=== PATIENT | male | born 1950 | race Caucasian/White ===

== ENCOUNTER 2018-02-25 22:44 | Inpatient (IN) ==
[2018-02-26 00:30] LABS: Bacteria,Urine None Seen per hpf (None-Few); Bilirubin,Urine Negative (Negative); Blood,Urine Negative (Negative); Clarity,Urine Clear (Clear); Color,Urine Yellow (Yellow); Glucose,Urine (UA) Normal (Normal); Hyaline Casts,Urine None Seen per lpf (None-Few); Ketones,Urine Negative (Negative); Leukocyte Esterase,Urine Trace (Negative); Nitrite,Urine Negative (Negative); PH,Urine 5.5 pH Units (5.0-8.0); Protein,Urine Trace mg/dL (Neg-Trace); Specific Gravity,Urine 1.015 (1.010-1.025); Squamous Epithelial Cell,Urine Many per lpf (None-Few); Urobilinogen,Urine Normal (Normal)
[2018-02-26 00:45] LABS: Hematocrit 37.1 % (37.5-50.1); Hemoglobin 11.9 g/dL (12.9-16.9); Mean Corpuscular HGB Conc 32.1 g/dL (31.6-35.5); Mean Corpuscular Hemoglobin 30.4 pg (28.0-33.3); Mean Corpuscular Volume 94.9 fL (83.0-100.0); Mean Platelet Volume 11.5 fL (9.4-12.4); Nucleated Red Blood Cells 0.1 /100 WBC (0); Platelet Count 248 K/mcL (140-400); Red Blood Count 3.91 M/mcL (4.19-5.50); Red Cell Distribution Width 19.7 % (11.5-14.5)
[2018-02-26 01:13] LABS: Monocytes # 2.3 K/mcL (0.0-1.3); Platelet Estimate Normal (Normal)
[2018-02-26] MEDS ORDERED: Levofloxacin 750 MG/150 ML 750 MG/150 ML BAG IVPB ONE (01:48)
[2018-02-26] MEDS ORDERED: Piperacillin/Tazobactam 3.375 GM in Water for inj. (sterile) 20 ML 20 ML IVP ONE (01:48)
--- NOTE | 2018-02-26 01:56 | Emergency Department Note ---
Disposition Clinical Impression: Chronic kidney disease, stage IV (severe), Urinary retention, Hyperkalemia Acute on chronic kidney failure Qualifiers: Acute renal failure type: unspecified Chronic kidney disease stage: unspecified stage Qualified Code(s): N17.9 - Acute kidney failure, unspecified; N18.9 - Chronic kidney disease, unspecified Disposition: Admitted As Inpatient Condition: Fair Time of Disposition: 04:53 General Adult HPI - General Chief complaint: ED Urogenital-Male Stated complaint: abnormal renal function labs Time Seen by Provider: 02/25/18 22:48 Source: patient, EMS Mode of arrival: EMS Limitations: no limitations Nursing Notes Reviewed: Yes Vital Signs Reviewed: Yes - History of Present Illness HPI Narrative: 67-year-old male presents to the emergency department from the [facility] for elevated creatinine. Patient was has workup done there. Patient states he was seen a few days ago for having difficulty with urination and he decided he did not want to be admitted to the ID so he decided to go home. Today he return to the ID saying he was unable to urinate and felt like his kidneys were not working. They said they sent him here has had elevated creatinine patient may need dialysis. Patient does have history of CKD as well as CHF. Patient currently has no other complaints including no headaches, blurry vision, neck pain, back pain, chest pain, shortness of breath, abdominal pain, changes in balance, pain or tingling down the arms or legs or generalized weakness, fevers, chills, nausea, vomiting. Pain Scale: 6 - Related Data Home Medications Medication Instructions Recorded Confirmed Allopurinol [Zyloprim 100 MG] 100 mg PO DAILY 09/28/15 10/18/16 Baclofen [Lioresal] 10 mg PO TID 09/28/15 10/18/16 Budesonide/Formoterol 160/4.5 2 puff IH BIDR 09/28/15 10/18/16 [Symbicort 160/4.5] Calcitriol 0.5 mcg PO DAILY 09/28/15 10/18/16 Cetirizine HCl [Zyrtec] 10 mg PO DAILY 09/28/15 10/18/16 Meclizine HCl [Verticalm] 12.5 mg PO TID 09/28/15 10/18/16 Metoprolol [Lopressor] 25 mg PO BID 09/28/15 10/18/16 OxyCODONE/APAP 5/325 [Percocet 1 tab PO Q6HR PRN 09/28/15 10/18/16 5/325 MG] Pantoprazole Sodium [Protonix] 40 mg PO BID 09/28/15 10/18/16 Simvastatin [Zocor] 40 mg PO DAILY 09/28/15 10/18/16 Tiotropium [Spiriva] 18 mcg IH DAILY 09/28/15 10/18/16 Albuterol Sulfate [Proair Hfa] 2 puff IH Q4H PRN 12/14/15 10/18/16 Aspirin Enteric Coated [Aspirin EC] 325 mg PO DAILY 12/14/15 10/18/16 Capsaicin [Zostrix Hp] 1 appl TP AD PRN 12/14/15 10/17/16 Docusate [Colace] 100 mg PO DAILY PRN 12/14/15 10/18/16 Ondansetron [Zofran] 8 mg PO DAILY PRN 12/14/15 10/18/16 Allergies Allergy/AdvReac Type Severity Reaction Status Date / Time NSAIDS (Non-Steroidal Allergy See Verified 09/28/15 20:55 Anti-Inflamma Comments All systems ED: reviewed and negative except as stated. Review of Systems: As Per HPI Past Medical History - Past Medical History Attestation: Yes The following information was validated with the patient. Source: patient Medical history: Reports: arthritis, CHF, COPD, GERD, hyperlipidemia, hypertension, peripheral artery disease, renal disease Surgical history: Reports: other Psychiatric history: Reports: no psych history - Social History Smoking Status: Former smoker Smokeless Tobacco Status: No Alcohol use: Reports: occasionally Drug use: Reports: none Physical Exam - General Limitations: no limitations General appearance: alert, in no apparent distress - Head Head exam: atraumatic, normocephalic, normal inspection - Eye Eye exam: Present: normal appearance, PERRL, EOMI - ENT ENT exam: normal exam, normal oropharynx, mucous membranes moist - Neck Neck exam: Present: normal inspection, full ROM, trachea midline - Chest Chest inspection: Present: normal inspection, symmetric chest wall rise - Respiratory Respiratory exam: Present: normal lung sounds bilaterally - Cardiovascular Cardiovascular exam: Present: regular rate, normal rhythm, normal heart sounds - Abdominal Exam Abdominal exam: Present: soft, Non-Tender, distention, normal bowel sounds. Absent: tenderness, guarding, rebound, rigidity - Extremities Exam Extremities exam: Present: normal inspection, full ROM. Absent: tenderness, pedal edema - Expanded Lower Extremity Exam Neurovascular/Tendon exam: Absent: motor deficit, sensory deficit, tendon deficit - Back Exam Back exam: Present: normal inspection, full ROM. Absent: tenderness, CVA tenderness (R), CVA tenderness (L) - Neurological Exam Neurological exam: Present: alert, oriented X3 - Skin Skin exam: Present: warm, dry, intact, normal color Course Course Narrative: We will repeat the patient's labs will upload the chest x-ray. We will get BMP , CBC. - Reevaluation(s) Reevaluation #1: Patient did show an elevated leukocytosis that did have mainly neutrophils. Chest x-ray did show pulmonary edema this could be a pneumonia but we will get blood cultures and start broad-spectrum antibiotics including Levsin, Zosyn, vancomycin. Due to patient's history of CHF patient will not give fluids to help with his creatinine patient most likely will need dialysis. Patient will be admitted. Vital Signs Temperature 97.8 F 02/25/18 23:00 Pulse Rate 71 02/25/18 23:00 Respiratory Rate 16 02/25/18 23:00 Blood Pressure 129/47 02/25/18 23:00 O2 Sat by Pulse Oximetry 94 02/25/18 23:00 Temperature 97.8 F 02/25/18 23:00 Pulse Rate 74 02/26/18 04:00 Respiratory Rate 20 02/26/18 04:00 Blood Pressure 126/58 02/26/18 04:00 O2 Sat by Pulse Oximetry 100 02/26/18 04:00 Oxygen Delivery Oxygen Delivery Nasal Cannula Medical Decision Making - [facility] Narrative Medical decision making narrative: 67-year-old male presented to the emergency department from the ID for admission due to patient having worsening creatinine he presented here with worsening AK I out of this EKG. Patient also had a leukocytosis with neutrophils so patient was likely is an infection somewhere. His chest x-ray did show possible pneumonia as well as pulmonary edema. This is most likely secondary to CHF. Due to this I was unable to give patient IV fluids for his AK I patient most likely needs dialysis. Patient did have elevation in his potassium at 5.9 so I did give him 5 units of insulin with D50 to help with the potassium. Patient no EKG changes or peaked T waves. Patient was also started on broad-spectrum antibiotics including vancomycin, Zosyn. Patient otherwise has no complaints at this time. Patient is stable at this time he normally does sleep with BiPAP so we did order BiPAP for him at night. Patient is more comfortable while on this. I spoke with the hospitalist Dr. Garner who agreed to admit the patient to their service. Patient is admitted in stable condition. Chest CT 02/26/18 02:09 IMPRESSION: 1. Slowly increasing ground-glass opacity consolidation in the apical left upper lobe, now measuring 5 x 1.5 cm. Pulmonology consultation recommended to evaluate for low-grade lung carcinoma. Follow-up chest CT can be considered in 3 months to confirm persistence. 2. Otherwise no acute abnormality in the chest on the noncontrast CT. Sequela of remote granulomatous disease. D/ / Jose L Tai MD / Jose L Tai MD Interpreting Provider: Jose L Tai MD - Medical Records Medical records reviewed: Yes I reviewed the patient's medical records. - Lab Data Lab results reviewed: Yes I reviewed the patient's lab results. Result diagrams: 02/26/18 00:28 02/26/18 01:40 Lab Results 02/26/18 02/26/18 02/26/18 Range/Units 00:24 00:28 00:28 WBC 28.2 H (4.3-11.1) K/mcL RBC 3.91 L (4.19-5.50) M/mcL Hgb 11.9 L (12.9-16.9) g/dL Hct 37.1 L (37.5-50.1) % MCV 94.9 (83.0-100.0) fL MCH 30.4 (28.0-33.3) pg MCHC 32.1 (31.6-35.5) g/dL RDW 19.7 H (11.5-14.5) % Plt Count 248 (140-400) K/mcL MPV 11.5 (9.4-12.4) fL Seg Neutrophils % 74.0 % Band Neutrophils % 4.0 (0-4) % Lymphocytes % 14.0 % Monocytes % 8.0 % Neutrophils # 22.0 H (1.6-8.9) K/mcL Lymphocytes # 4.0 (0.6-4.6) K/mcL Monocytes # 2.3 H (0.0-1.3) K/mcL Nucleated RBCs/100 WBC 0.1 H (0) /100 WBC Platelet Estimate Normal (Normal) Sodium (136-145) mEq/L Potassium (3.5-5.1) mEq/L Chloride (98-107) mEq/L Carbon Dioxide (23-29) mEq/L BUN (8-23) mg/dL Creatinine (0.70-1.30) mg/dL Est GFR ( Amer) (> 60) Est GFR (Non-Af Amer) (> 60) BUN/Creatinine Ratio Glucose (70-105) mg/dL Calculated Osmolality Calcium (8.6-10.3) mg/dL Magnesium (1.6-2.6) mg/dL Total Bilirubin (0.3-1.0) mg/dL AST (13-39) Units/L ALT (7-52) Units/L Alkaline Phosphatase (34-104) Units/L Serum Total Protein (6.4-8.9) g/dL Albumin (3.5-5.7) g/dL Globulin (2.4-3.5) g/dL Albumin/Globulin Ratio (1.1-2.2) Urine Color Yellow (Yellow) Urine Clarity Clear (Clear) Urine pH 5.5 (5.0-8.0) pH Units Ur Specific [place] 1.015 (1.010-1.025) Urine Protein Trace (Neg-Trace) mg/dL Urine Glucose (UA) Normal (Normal) mg/dL Urine Ketones Negative (Negative) mg/dL Urine Blood Negative (Negative) Urine Nitrite Negative (Negative) Urine Bilirubin Negative (Negative) Urine Urobilinogen Normal (Normal) mg/dL Ur Leukocyte Esterase Trace H (Negative) Urine Microscopic RBC 5-15 H (0-3) per hpf Urine Microscopic WBC 5-15 H (0-3) per hpf Ur Squamous Epith Cells Many H (None-Few) per lpf Urine Bacteria None Seen (None-Few) per hpf Hyaline Casts None Seen (None-Few) per lpf Ur Culture Indicated? NO. A (NO) Specimen Rejected Hemolyzed 10/02/18 Range/Units 01:40 WBC (4.3-11.1) K/mcL RBC (4.19-5.50) M/mcL Hgb (12.9-16.9) g/dL Hct (37.5-50.1) % MCV (83.0-100.0) fL MCH (28.0-33.3) pg MCHC (31.6-35.5) g/dL RDW (11.5-14.5) % Plt Count (140-400) K/mcL MPV (9.4-12.4) fL Seg Neutrophils % % Band Neutrophils % (0-4) % Lymphocytes % % Monocytes % % Neutrophils # (1.6-8.9) K/mcL Lymphocytes # (0.6-4.6) K/mcL Monocytes # (0.0-1.3) K/mcL Nucleated RBCs/100 WBC (0) /100 WBC Platelet Estimate (Normal) Sodium 144 (136-145) mEq/L Potassium 5.8 H (3.5-5.1) mEq/L Chloride 111 H (98-107) mEq/L Carbon Dioxide 12 L (23-29) mEq/L BUN > 130 H (8-23) mg/dL Creatinine 6.41 H (0.70-1.30) mg/dL Est GFR ( Amer) 11 L (> 60) Est GFR (Non-Af Amer) 9 L (> 60) BUN/Creatinine Ratio TNP Glucose 84 (70-105) mg/dL Calculated Osmolality TNP Calcium 8.0 L (8.6-10.3) mg/dL Magnesium 2.7 H (1.6-2.6) mg/dL Total Bilirubin 0.5 (0.3-1.0) mg/dL AST 25 (13-39) Units/L ALT 28 (7-52) Units/L Alkaline Phosphatase 51 (34-104) Units/L Serum Total Protein 6.5 (6.4-8.9) g/dL Albumin 3.9 (3.5-5.7) g/dL Globulin 2.6 (2.4-3.5) g/dL Albumin/Globulin Ratio 1.5 (1.1-2.2) Urine Color (Yellow) Urine Clarity (Clear) Urine pH (5.0-8.0) pH Units Ur Specific [place] (1.010-1.025) Urine Protein (Neg-Trace) mg/dL Urine Glucose (UA) (Normal) mg/dL Urine Ketones (Negative) mg/dL Urine Blood (Negative) Urine Nitrite (Negative) Urine Bilirubin (Negative) Urine Urobilinogen (Normal) mg/dL Ur Leukocyte Esterase (Negative) Urine Microscopic RBC (0-3) per hpf Urine Microscopic WBC (0-3) per hpf Ur Squamous Epith Cells (None-Few) per lpf Urine Bacteria (None-Few) per hpf Hyaline Casts (None-Few) per lpf Ur Culture Indicated? (NO) Specimen Rejected - Radiology Data Radiology results reviewed: Yes I reviewed the patient's radiology results. - EKG Data EKG #1 EKG attestation: Yes I reviewed and interpreted this EKG. EKG results narrative: EKG done at 2254 review myself and the attending shows sinus rhythm at a rate of 71, ID interval 153, QRS 107, QTC 442 with a normal axis. There is no acute ST changes no acute T-wave changes no signs of any peaked T waves or any other signs of ischemia. No hypertrophy, heart strain, heart block. No WPW/Brugada/ HOCM. No old EKG to compare with Attestation Statement - Attestation Attestation: I examined this patient and my medical decision-making was reviewed with the Resident Physician. I agree with the documented findings, disposition and treatment plan as described except to the extent set forth below. Findings consistent with acute renal failure. [facility] Additionally there is findings of possible lung cancer. The patient will need pulmonary consultation. Additionally he does have mild hyperkalemia. There are no EKG changes and as such I would not administer calcium which would provide a stabilizing effect only beneficial when EKG changes are evident. The patient will be given reduced dose insulin due to his renal failure based on new research suggesting that full dose regular insulin dosing to treat hyperkalemia can result and subsequent hypoglycemia. The patient will get 5 units of regular insulin as well as dextrose solution and will be admitted for further management.
[2018-02-26 02:10] LABS: Alanine Aminotransferase 28 Units/L (7-52); Albumin 3.9 g/dL (3.5-5.7); Albumin/Globulin Ratio 1.5 (1.1-2.2); Alkaline Phosphatase 51 Units/L (34-104); Aspartate Amino Transferase 25 Units/L (13-39); Bilirubin,Total 0.5 mg/dL (0.3-1.0); Blood Urea Nitrogen > 130 mg/dL (8-23); Carbon Dioxide 12 mEq/L (23-29); Chloride 111 mEq/L (98-107); Globulin 2.6 g/dL (2.4-3.5); Glucose 84 mg/dL (70-105); Magnesium 2.7 mg/dL (1.6-2.6); Potassium 5.8 mEq/L (3.5-5.1); Sodium 144 mEq/L (136-145); Total Protein 6.5 g/dL (6.4-8.9); eGFR For Non-African Americans 9 (> 60)
[2018-02-26] MEDS ORDERED: Insulin Human Regular 5 UNIT in 0.9 % Sodium Chloride 10 ML IV ONE (04:38)
[2018-02-26] MEDS ORDERED: *HR* Dextrose 50 % in Water (Syg) 50 ML SYRINGE IVP ONE (04:38)
[2018-02-26 06:11] LABS: Blood Urea Nitrogen > 130 mg/dL (8-23); Calcium 7.5 mg/dL (8.6-10.3); Carbon Dioxide 14 mEq/L (23-29); Chloride 108 mEq/L (98-107); Glucose 177 mg/dL (70-105); Potassium 4.6 mEq/L (3.5-5.1); Sodium 140 mEq/L (136-145); eGFR For Non-African Americans 9 (> 60)
[2018-02-26] MEDS ORDERED: Naloxone 0.4 MG/ML INJ IVP PRN (07:46)
[2018-02-26] MEDS ORDERED: Sodium Bicarbonate 150 MEQ in D5% in Water 1,000 ML IVC SCH ×2 (08:00→19:30)
--- NOTE | 2018-02-26 08:29 | Internal Med History&Physical ---
Date of Encounter: 02/26/18 Time of Encounter: 08:29 Internal Medicine - H&P: HPI Chief complaint: Generalized weakness, decreased urine output Admitted From: Emergency Dept Plans for Post Hospital Care: Home History of present illness: Mr. Madrid is a 67 year old male patient with a history of chronic kidney disease stage IV, hypertension, peripheral arterial disease who presented to the ER at the [facility] initially on Sunday with complaints of generalized weakness. He was evaluated in the ER and was noted to have worsening renal function. He was sent home at that time but did return to the ER yesterday with complaints of worsening symptoms. He did have decreased urine output. Also was having worsening swelling and some shortness of breath with exertion. He has also been having dark colored sputum and cough. He denies any mitzi blood. No diarrhea. Did have some emesis. He has chronic back pain and takes Percocet for it. He says that he is being weaned off it and was taking Tylenol instead. Denies use of any NSAIDs. No recent antibiotics. No fever or chills or night sweats. Past Med Surg Social Fam HX - Past Medical History Attestation: Yes The following information was validated with the patient. Source: patient Medical history: arthritis, CHF, COPD, GERD, hyperlipidemia, hypertension, peripheral artery disease, renal disease Additional medical history: sleep apnea Psychiatric history: no psych history - Past Surgical History Surgical History: other Additional surgical history: dental - bronchoscopy x 2 - egd - right femoral stent - spine stimulator - Social History Smoking Status: Former smoker Smokeless Tobacco Status: No Alcohol use: occasionally Drug use: none - Family History Mother Adopted: No Family Member Ethnicity: Non- Living Status: Hx Family Cardiac Disorders: No Hx Family Respiratory Disorders: Yes (copd) Hx Family Cancer: Yes (ovarian cancer) Hx Family GI Disorders: No Hx Family Endocrine Disorder: No Hx Family Neuromuscular Disorders: No Hx Family Neurologic Disorders: No Hx Family HEENT Disorders: No Hx Family Autoimmune Disorders: No Internal Medicine - H&P: Meds Allopurinol [Zyloprim 100 MG] 100 mg PO DAILY 09/28/15 [History] Baclofen [Lioresal] 10 mg PO TID 09/28/15 [History] Budesonide/Formoterol 160/4.5 [Symbicort 160/4.5] 2 puff IH BIDR 09/28/15 [ History] Calcitriol 0.5 mcg PO DAILY 09/28/15 [History] Cetirizine HCl [Zyrtec] 10 mg PO DAILY 09/28/15 [History] Meclizine HCl [Verticalm] 12.5 mg PO TID 09/28/15 [History] Metoprolol [Lopressor] 25 mg PO BID 09/28/15 [History] OxyCODONE/APAP 5/325 [Percocet 5/325 MG] 1 tab PO Q6HR PRN 09/28/15 [History] Pantoprazole Sodium [Protonix] 40 mg PO BID 09/28/15 [History] Simvastatin [Zocor] 40 mg PO DAILY 09/28/15 [History] Tiotropium [Spiriva] 18 mcg IH DAILY 09/28/15 [History] Albuterol Sulfate [Proair Hfa] 2 puff IH Q4H PRN 12/14/15 [History] Aspirin Enteric Coated [Aspirin EC] 325 mg PO DAILY 12/14/15 [History] Capsaicin [Zostrix Hp] 1 appl TP AD PRN 12/14/15 [History] Docusate [Colace] 100 mg PO DAILY PRN 12/14/15 [History] Ondansetron [Zofran] 8 mg PO DAILY PRN 12/14/15 [History] 3 Allergy/AdvReac Type Severity Reaction Status Date / Time NSAIDS (Non-Steroidal Allergy See Verified 09/28/15 20:55 Anti-Inflamma Comments All Systems PM: A 10-system review of systems was performed and is negative for pertinent findings except as documented above in the HPI. - Constitutional Constitutional: malaise, weakness - EENT Eyes: no change in vision, no discharge, no pain, no photophobia Ears: no ear discharge, no ear pain, no tinnitus Nose, mouth and throat: no dysphagia, no nasal discharge, no neck pain, no sore throat - Cardiovascular Cardiovascular ROS IM: dyspnea on exertion, edema, paroxysmal nocturnal dyspnea , no chest pain, no diaphoresis, no dyspnea, no lightheadedness, no palpitations , no syncope - Respiratory Respiratory: no cough, no dyspnea, no wheezing, no excessive phlegm production - Gastrointestinal Gastrointestinal: no abdominal pain, no diarrhea, no hematemesis, no hematochezia, no melena, no nausea, no vomiting - Musculoskeletal Musculoskeletal ROS IM: no numbness, no tingling - Integumentary Integumentary IM: no rash, no unusual bruising - Neurological Neurological ROS: no confusion, no convulsions, no focal weakness, no numbness, no tingling, no tremor(s) - Hematologic/Lymphatic Hematologic/Lymphatic: no easy bruising - Constitutional Vitals: Temp Pulse Resp BP Pulse Ox 97.4 F L 70 18 94/55 93 02/26/18 07:54 02/26/18 07:54 02/26/18 07:54 02/26/18 07:54 02/26/18 07:54 General appearance: Present: cooperative, A&O X 3, morbidly obese, obese, answers questions appropriately Exam: Mild distress - Neck Neck exam general surgery: Present: supple, trachea midline. Absent: lymphadenopathy - Respiratory Respiratory exam: Present: decreased breath sounds (At both bases), prolonged expiratory phase, wheezes. Absent: accessory muscle use, rales, rhonchi - Cardiovascular Cardiovascular exam: Present: RRR, +S1, +S2. Absent: diastolic murmur, gallop, rubs, systolic murmur - GI/Abdominal GI/Abdominal exam: Present: normal bowel sounds, soft, no peritoneal signs. Absent: distended, tenderness - Extremities Exam Extremities exam: Present: pedal edema, warm, radial pulses palpable and symmetrical. Absent: calf tenderness, cyanotic - Neurological Exam Neurological exam: Present: alert, oriented X3, no focal deficits. Absent: facial droop, speech deficit - Skin Skin exam: Present: dry, intact Internal Med - H&P Results - Labs CBC & Chem 7: 02/26/18 00:28 02/26/18 05:41 Labs: BMP 02/26/18 05:41 Sodium 140 Potassium 4.6 Chloride 108 H Carbon Dioxide 14 L BUN > 130 H Creatinine 6.51 H Glucose 177 H Calcium 7.5 L - Impressions Impressions Chest CT 02/26/18 02:09 IMPRESSION: 1. Slowly increasing ground-glass opacity consolidation in the apical left upper lobe, now measuring 5 x 1.5 cm. Pulmonology consultation recommended to evaluate for low-grade lung carcinoma. Follow-up chest CT can be considered in 3 months to confirm persistence. 2. Otherwise no acute abnormality in the chest on the noncontrast CT. Sequela of remote granulomatous disease. D/ / 02/26/2018 07:16:10 Jose L Tai MD / [facility] Interpreting Provider: Jose L Tai MD - Assessment and plan (1) Acute on chronic kidney failure Current Visit: Yes Status: Acute Assessment and plan: Acute kidney injury on chronic kidney disease. Most likely progression of underlying chronic kidney disease. Monitor input and output. Nephrology consult. Patient may require hemodialysis. High risk for complications. Keep nothing by mouth for now. Gentle IV hydration. Qualifiers: Acute renal failure type: unspecified Chronic kidney disease stage: stage 4 (severe) Qualified Code(s): N17.9 - Acute kidney failure, unspecified; N18.4 - Chronic kidney disease, stage 4 (severe) (2) Pneumonia Current Visit: Yes Status: Suspected Assessment and plan: Patient presenting with generalized weakness. Does have elevated leukocyte count and was having sputum production. CT scan of the chest shows right upper lobe abnormality concerning for pneumonia/carcinoma. Discussed with pulmonology. Will treat for pneumonia with broad-spectrum antibiotics for now. Perform MRSA screen. High risk for complications. Qualifiers: Pneumonia type: due to methicillin-resistant Staphylococcus aureus (MRSA) Laterality: right Lung location: upper lobe of lung Qualified Code(s): J15.212 - Pneumonia due to Methicillin resistant Staphylococcus aureus (3) Hyperlipidemia Current Visit: Yes Status: Chronic Assessment and plan: continue statin Qualifiers: Hyperlipidemia type: mixed hyperlipidemia Qualified Code(s): E78.2 - Mixed hyperlipidemia (4) COPD (chronic obstructive pulmonary disease) Current Visit: Yes Status: Chronic Assessment and plan: Recent with history of COPD. Will treat symptomatically. O2 supplementation and bronchodilators as needed. Qualifiers: COPD type: emphysema Emphysema type: panlobular Qualified Code(s): J43.1 - Panlobular emphysema (5) Chronic kidney disease, stage IV (severe) Current Visit: Yes Status: Acute Assessment and plan: Management as above (6) Benign hypertension with chronic kidney disease, stage IV Current Visit: Yes Status: Chronic Assessment and plan: Monitor blood pressure. Allow for permissive hypertension in setting of acute renal failure. - Time Spent With Patient Total time spent is greater than 50% in coordination of care (as documented) at patient's floor/unit and/or counseling patient:
[2018-02-26] MEDS ORDERED: Vancomycin 1 EACH in 0.9 % Sodium Chloride 250 ML IVPB SCH (09:00)
--- NOTE | 2018-02-26 09:50 | Pulmonology Consult Note ---
Date of Encounter: 02/26/18 Time of Encounter: 09:49 Assessment and Plan (1) Pneumonia Current Visit: Yes Status: Suspected There is clinical and radiographical concern for acute pneumonia Obtain urine strep pneumo antigen and Legionella antigen Send sputum cultures and blood cultures if not obtained Send respiratory infectious panel (PCR) He is currently on broad-spectrum antimicrobials and I would recommend de- escalation within the next 24 hours . This could likely stop Zosyn today) continue think and Levaquin and further de-escalation based upon of culture and sensitivities. Of note nares is positive for MRSA Qualifiers: Pneumonia type: due to methicillin-resistant Staphylococcus aureus (MRSA) Laterality: right Lung location: upper lobe of lung Qualified Code(s): J15.212 - Pneumonia due to Methicillin resistant Staphylococcus aureus (2) Ground glass opacity present on imaging of lung Current Visit: Yes Status: Acute This may be a manifestation of underlying slow-growing malignancy (such as bronchoalveolar carcinoma) versus pneumonia versus some combination of the two Recommend treating acutely for infection and to follow-up outpatient pulmonary for repeat CT scan in 4-6 weeks Consider bronchoscopy or CT-guided biopsy based upon radiographic results (3) CARMEN (obstructive sleep apnea) Current Visit: Yes Status: Acute Patient to bring his home BiPAP and should be used at each night he states that his settings are 21/17 healing and FiO2 bleed to keep his oxygen saturation greater than 88% (4) COPD with exacerbation Current Visit: Yes Status: Acute Would start prednisone 40 mg by mouth daily I suspect a 5 day burst would be sufficient in this situation Schedule bronchodilators (duo nebs) every 6 hours with every hour albuterol on an as-needed basis Start Symbicort 160/4.5 (patient takes this at home) (5) Chronic respiratory failure Current Visit: Yes Status: Acute Continue supplemental oxygen to keep saturation greater than 88% his approximately 5 L right now when I was in the room with acceptable oxygenation out of bed to chair and early ambulation and incentive spirometry: Help mitigate the effects of VQ mismatching secondary to atelectasis while inpatient Qualifiers: Respiratory failure complication: hypoxia Qualified Code(s): J96.11 - Chronic respiratory failure with hypoxia (6) LÁZARO (acute kidney injury) Current Visit: Yes Status: Acute Unclear etiology nephrology following I will do further workup for this He will need antibiotics renally dosed per pharmacy recommendations There is no evidence of pulmonary renal syndrome at this time Thank you very much for the consultation History of Present Illness Consult date: 02/26/18 Requesting physician: Brenda Smith Reason for consult: pneumonia Chief complaint: Difficulty in Breathing History of present illness: This is a pleasant 67-year-old gentleman who is transferred from the [facility] for evaluation of generalized weakness was evaluated in the ED at the [facility] where he was noted to have worsening renal function and low urine output. He also describes some lower extremity swelling along with cough of thick dark sputum and shortness of breath over the last 2 weeks. Denies coughing up any blood or mitzi hemoptysis. Denies any diarrhea but did have occasional nausea but denied mitzi vomiting. On arrival here had a white count 28.2 and noted to acute on chronic kidney injury creatinine 6.51. Also noted to have mild hyperkalemia that was treated medically. A CT scan of the chest was done in the emergency room murmur was notable for slowly increasing groundglass opacity/consolidation in the apical left upper lobe was 5 x 1.5 cm. Pulmonary was consulted for further evaluation of this. Patient has a history of long-standing chronic respiratory failure and wears between 4 and 6 L oxygen at all times. He has a history of COPD and was a 45+- pack-year history of smoking but quit about 5 years ago. He also has obstructive sleep apnea wears BiPAP nightly he is also morbidly obese. 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 No exotic pets at home recent sick contacts or travel. Past Med Surg Social Fam HX - Past Medical History Medical history: arthritis, CHF, COPD, GERD, hyperlipidemia, hypertension, peripheral artery disease, renal disease Additional medical history: sleep apnea Psychiatric history: no psych history - Past Surgical History Surgical History: other Additional surgical history: dental - bronchoscopy x 2 - egd - right femoral stent - spine stimulator - Social History Smoking Status: Former smoker Smokeless Tobacco Status: No Alcohol use: occasionally Drug use: none - Family History Mother Adopted: No Family Member Ethnicity: Non- Living Status: Hx Family Cardiac Disorders: No Hx Family Respiratory Disorders: Yes (copd) Hx Family Cancer: Yes (ovarian cancer) Hx Family GI Disorders: No Hx Family Endocrine Disorder: No Hx Family Neuromuscular Disorders: No Hx Family Neurologic Disorders: No Hx Family HEENT Disorders: No Hx Family Autoimmune Disorders: No Medications and Allergies Allopurinol [Zyloprim 100 MG] 100 mg PO DAILY 09/28/15 [History] Baclofen [Lioresal] 10 mg PO TID 09/28/15 [History] Budesonide/Formoterol 160/4.5 [Symbicort 160/4.5] 2 puff IH BIDR 09/28/15 [ History] Calcitriol 0.5 mcg PO DAILY 09/28/15 [History] Cetirizine HCl [Zyrtec] 10 mg PO DAILY 09/28/15 [History] Meclizine HCl [Verticalm] 12.5 mg PO TID 09/28/15 [History] Metoprolol [Lopressor] 25 mg PO BID 09/28/15 [History] OxyCODONE/APAP 5/325 [Percocet 5/325 MG] 1 tab PO Q6HR PRN 09/28/15 [History] Pantoprazole Sodium [Protonix] 40 mg PO BID 09/28/15 [History] Simvastatin [Zocor] 40 mg PO DAILY 09/28/15 [History] Tiotropium [Spiriva] 18 mcg IH DAILY 09/28/15 [History] Albuterol Sulfate [Proair Hfa] 2 puff IH Q4H PRN 12/14/15 [History] Aspirin Enteric Coated [Aspirin EC] 325 mg PO DAILY 12/14/15 [History] Capsaicin [Zostrix Hp] 1 appl TP AD PRN 12/14/15 [History] Docusate [Colace] 100 mg PO DAILY PRN 12/14/15 [History] Ondansetron [Zofran] 8 mg PO DAILY PRN 12/14/15 [History] 3 Allergy/AdvReac Type Severity Reaction Status Date / Time NSAIDS (Non-Steroidal Allergy See Verified 09/28/15 20:55 Anti-Inflamma Comments All Systems: The remainder of the systems were reviewed and are negative Physical Examination Vital Signs: Vital Signs, Last 4 Hours Temp Pulse Resp BP Pulse Ox 02/26/18 07:54 97.4 F L 70 18 94/55 93 General appearance: no acute distress Eyes: nonicteric ENT: oropharynx moist Mallampati (class): 4 Neck: supple, no lymphadenopathy Effort: normal Auscultation: bilateral: diminished breath sounds, wheezes (exp wheezes noted ) Cardiovascular: regular rate and rhythm Gastrointestinal: normoactive bowel sounds, other (Morbidly obese habitus) Integumentary: normal Extremities: no cyanosis, no clubbing, pink and warm, edema (Trace lower extremity edema bilaterally and symmetric) Musculoskeletal: no deformities normal mental status, non-focal exam, pupils equal and round mood appropriate Results - Laboratory Findings CBC and BMP: 02/26/18 00:28 02/26/18 05:41 Abnormal lab findings: Abnormal lab results WBC 28.2 K/mcL (4.3-11.1) H 02/26/18 00:28 RBC 3.91 M/mcL (4.19-5.50) L 02/26/18 00:28 Hgb 11.9 g/dL (12.9-16.9) L 02/26/18 00:28 Hct 37.1 % (37.5-50.1) L 02/26/18 00:28 RDW 19.7 % (11.5-14.5) H 02/26/18 00:28 Neutrophils # 22.0 K/mcL (1.6-8.9) H 02/26/18 00:28 Monocytes # 2.3 K/mcL (0.0-1.3) H 02/26/18 00:28 Nucleated RBCs/100 WBC 0.1 /100 WBC (0) H 02/26/18 00:28 Chloride 108 mEq/L (98-107) H 02/26/18 05:41 Carbon Dioxide 14 mEq/L (23-29) L 02/26/18 05:41 BUN > 130 mg/dL (8-23) H 02/26/18 05:41 Creatinine 6.51 mg/dL (0.70-1.30) H 02/26/18 05:41 Est GFR ( Amer) 10 (> 60) L 02/26/18 05:41 Est GFR (Non-Af Amer) 9 (> 60) L 02/26/18 05:41 Glucose 177 mg/dL (70-105) H 02/26/18 05:41 Calcium 7.5 mg/dL (8.6-10.3) L 02/26/18 05:41 Magnesium 2.7 mg/dL (1.6-2.6) H 02/26/18 01:40 Ur Leukocyte Esterase Trace (Negative) H 02/26/18 00:24 Urine Microscopic RBC 5-15 per hpf (0-3) H 02/26/18 00:24 Urine Microscopic WBC 5-15 per hpf (0-3) H 02/26/18 00:24 Ur Squamous Epith Cells Many per lpf (None-Few) H 02/26/18 00:24 Ur Culture Indicated? NO. (NO) A 02/26/18 00:24 - Diagnostic Findings CT scan - chest: report reviewed, image reviewed - Clinical Findings Intake & Output: Intake & Output 02/25/18 02/26/18 02/26/18 23:59 07:59 15:59 Intake Total 510.05 / 530.05 Balance 510.05 / 530.05 Consult Discharge Plan - Plan [facility]errals: [facility] [Primary Care Provider] -
[2018-02-26 10:46] LABS: Estimated Average Glucose 123 mg/dl; Hemoglobin A1C 5.9 %
[2018-02-26 10:52] LABS: INR 1.1; Prothrombin Time 12.8 Seconds (9.4-12.1)
[2018-02-26] MEDS ORDERED: Vancomycin 1 EACH in 0.9 % Sodium Chloride 250 ML IVPB PRN (11:15)
--- NOTE | 2018-02-26 11:35 | Nephrology Consult Note ---
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 Will consult IR for temp line and proceed Will check CPK and uric acid levels Await urine studies when urinating Avoid nephroxins if possible Hold all nephrotoxins Await US of kidney (2) Acute and chronic respiratory failure with hypoxia Current Visit: Yes Status: Acute Per pulm and primary team (3) COPD with exacerbation Current Visit: Yes Status: Acute Per pulm (4) Pneumonia Current Visit: Yes Status: Suspected Per pulm Qualifiers: Pneumonia type: due to methicillin-resistant Staphylococcus aureus (MRSA) Laterality: right Lung location: upper lobe of lung Qualified Code(s): J15.212 - Pneumonia due to Methicillin resistant Staphylococcus aureus History of Present Illness - Reason for Consult Consult date: 02/26/18 Acute Kidney Injury, Chronic Kidney Disease Requesting physician: Anh Regalado - History of Present Illness 67 y o male with PMH of HTN, CHF, PAD, COPD and CKD (stage 3 per pt) admitted from the [place] where he initially presented for generalized weakness and noted with elevated SCr. Renal consulted for SCr of 6.51, GFR 9 and inital potassium of 5.8 now improved to 4.6 and BUN >130. Pt reports prior history of CKD stage 3 approx. a year ago followed with nephrology, Dr Andres but became lost to followup due to transportation isssues. Pt reports recent addition of lisinopril to his regimen approx. a week ago at the [place]. He was just treated twice with abx for LE infection first with cephalosporin and second with unspecified agent. Pt report overall decreased UOP. No NSAIds use Past Med Surg Social Fam HX - Past Medical History Medical history: arthritis, CHF, COPD, GERD, hyperlipidemia, hypertension, peripheral artery disease, renal disease Additional medical history: sleep apnea Psychiatric history: no psych history - Past Surgical History Surgical History: other Additional surgical history: dental - bronchoscopy x 2 - egd - right femoral stent - spine stimulator - Social History Smoking Status: Former smoker Smokeless Tobacco Status: No Alcohol use: occasionally Drug use: none - Family History Mother Adopted: No Family Member Ethnicity: Non- Living Status: Hx Family Cardiac Disorders: No Hx Family Respiratory Disorders: Yes (copd) Hx Family Cancer: Yes (ovarian cancer) Hx Family GI Disorders: No Hx Family Endocrine Disorder: No Hx Family Neuromuscular Disorders: No Hx Family Neurologic Disorders: No Hx Family HEENT Disorders: No Hx Family Autoimmune Disorders: No Medications and Allergies Allopurinol [Zyloprim 100 MG] 200 mg PO DAILY 09/28/15 [History] Baclofen [Lioresal] 15 mg PO TID PRN 09/28/15 [History] Budesonide/Formoterol 160/4.5 [Symbicort 160/4.5] 2 puff IH BIDR 09/28/15 [ History] Cetirizine HCl [Zyrtec] 10 mg PO DAILY 09/28/15 [History] Meclizine HCl [Verticalm] 12.5 mg PO BID PRN 09/28/15 [History] OxyCODONE/APAP 5/325 [Percocet 5/325 MG] 1 tab PO Q6HR PRN 09/28/15 [History] Pantoprazole Sodium [Protonix] 40 mg PO BID 09/28/15 [History] Simvastatin [Zocor] 40 mg PO DAILY 09/28/15 [History] Albuterol Sulfate [Proair Hfa] 2 puff IH Q4H PRN 12/14/15 [History] Aspirin Enteric Coated [Aspirin EC] 325 mg PO DAILY 12/14/15 [History] Ondansetron [Zofran] 8 mg PO BID PRN 12/14/15 [History] Calcitriol 0.5 mcg PO DAILY 02/26/18 [History] Cyanocobalamin (Vitamin B-12) [Vitamin B12] 1,000 mcg PO DAILY 02/26/18 [History ] Metoprolol Succinate [[place]apsp[place] Sprinkle] 50 mg PO DAILY 02/26/18 [History] Sennosides [Senna] 2 tab PO HS 02/26/18 [History] Tiotropium [place] [Spiriva Respimat] 2 puff IH DAILY 02/26/18 [History] 3 Allergy/AdvReac Type Severity Reaction Status Date / Time NSAIDS (Non-Steroidal Allergy See Verified 09/28/15 20:55 Anti-Inflamma Comments Review of Systems All Systems review (narrative): The rest of the systems are negative Constitutional: anorexia (denies), weakness (admits) Cardiovascular: chest pain (denies), leg edema (admits) Respiratory: cough (admits), dyspnea (adits) Exam - Vital Signs Vital signs: Initial Vital Signs Temp Pulse Resp BP Pulse Ox 97.8 F 71 16 129/47 94 02/25/18 23:00 02/25/18 23:00 02/25/18 23:00 02/25/18 23:00 02/25/18 23:00 Vital Signs - Last 8 Hours Temp Pulse Resp BP Pulse Ox 02/26/18 07:54 97.4 F L 70 18 94/55 93 02/26/18 05:21 74 20 114/95 96 02/26/18 04:50 14 126/58 97 Intake and Output 02/25/18 02/26/18 02/26/18 23:59 07:59 15:59 Intake Total 510.05 / 530.05 Balance 510.05 / 530.05 Intake: IV Fluids 510.05 / 510.05 HumuLIN R 5 UNIT In Normal 10.05 / 10.05 Saline Flush 10 ML @ 1206 mls/ hr IV ONCE ONE Rx#:[id number] Vancocin 2,000 MG In 0.9 % 500 / 500 Sodium Chloride 500 ML @ 250 mls/hr IVPB ONCE ONE Rx#: [id number] - General Appearance General appearance: obese, chronically ill EENT: ATNC, mucous membranes moist Neck: no JVD, supple Additional Comments: decreased BS bases bilat Cardiology: edema, normal S1, normal S2 Gastrointestinal: no tenderness, no guarding, obese Integumentary: warm and dry Neurologic: no focal deficit Musculoskeletal: no deformities Psychiatric: mood/affect appropriate, cooperative Results - Lab Results 03/03/18 03:15 03/03/18 03:15 Most recent lab results Calcium 7.5 mg/dL (8.6-10.3) L 02/26/18 05:41 Phosphorus 11.8 mg/dL (2.7-4.5) H 02/26/18 10:31 Magnesium 2.7 mg/dL (1.6-2.6) H 02/26/18 01:40 Consult Discharge Plan - Plan [facility]errals: [facility] [Primary Care Provider] -
[2018-02-26 13:18] LABS: Blood Urea Nitrogen > 130 mg/dL (8-23); Calcium 7.7 mg/dL (8.6-10.3); Carbon Dioxide 14 mEq/L (23-29); Chloride 109 mEq/L (98-107); Creatine Kinase 255 Units/L (30-223); Glucose 92 mg/dL (70-105); Potassium 4.6 mEq/L (3.5-5.1); Sodium 141 mEq/L (136-145); Uric Acid 8.4 mg/dL (2.3-7.6); eGFR For Non-African Americans 8 (> 60)
[2018-02-26] MEDS ORDERED: Piperacillin/Tazobactam 3.375 GM in 0.9 % Sodium Chloride Mini Bag 100 ML IVPB SCH (14:00)
[2018-02-26] MEDS ORDERED: Vancomycin 500 MG in 0.9 % Sodium Chloride Mini Bag 100 ML IVPB ONE ×2 (15:00→18:00)
[2018-02-26] MEDS ORDERED: *HR* Heparin 5,000 UNIT/ML VIAL ONE (15:11)
[2018-02-26] MEDS: predniSONE 20 MG TABLET PO SCH (15:27)
[2018-02-26] MEDS: Piperacillin/Tazobactam 3.375 GM in 0.9 % Sodium Chloride Mini Bag 100 ML IVPB SCH (15:27)
--- NOTE | 2018-02-26 15:29 | IR Procedure Note ---
Date of procedure: 02/26/18 Consent Obtained: Verbal consent, Written consent Timeout: Correct patient and procedure verified, Correct site verified, Time out performed, Skin prep completed Local anesthetic: Lidocaine 1% Indications: needs dialysis Procedure Performed: right IJ temporary HD catheter Was there an senior agricultural assistant present: No Site/Technique: right IJ Results/Findings: as above Estimated blood loss (cc): 0 Complications: None; Tolerated procedure well Post Procedure Treatment Plan: ok to use catether Specimen: NA
[2018-02-26] MEDS ORDERED: 0.9 % Sodium Chloride 1,000 ML ONE (15:55)
[2018-02-26] MEDS: Budesonide/Formoterol 160/4.5 1 PUFF INH IH SCH ×2 (15:56→22:36)
[2018-02-26] MEDS ORDERED: *HR* Heparin 10,000 UNIT/10 ML VIAL IV PRN (16:03)
[2018-02-26] MEDS ORDERED: 0.9 % Sodium Chloride 250 ML IVC PRN (16:03)
[2018-02-26] MEDS ORDERED: 0.9 % Sodium Chloride 1,000 ML PRIME SCH (16:15)
[2018-02-26 17:00] LABS: Hepatitis B Surface Antigen Nonreactive (Nonreactive)
[2018-02-26] MEDS: Sennosides 8.6 MG TABLET PO SCH (20:23)
[2018-02-26] MEDS: *HR* OxyCODONE/APAP 5/325 TABLET PO PRN (20:23)
[2018-02-26] MEDS: *HR* Heparin 5,000 UNIT/ML VIAL SQ SCH (20:24)
[2018-02-27 02:11] LABS: Hepatitis B Surface Antibody 0.88 mIU/mL
[2018-02-27] MEDS: *HR* OxyCODONE/APAP 5/325 TABLET PO PRN ×3 (04:38→20:49)
[2018-02-27 04:43] LABS: Hematocrit 33.9 % (37.5-50.1); Hemoglobin 10.8 g/dL (12.9-16.9); Mean Corpuscular HGB Conc 31.9 g/dL (31.6-35.5); Mean Corpuscular Hemoglobin 29.5 pg (28.0-33.3); Mean Corpuscular Volume 92.6 fL (83.0-100.0); Mean Platelet Volume 11.2 fL (9.4-12.4); Platelet Count 213 K/mcL (140-400); Red Blood Count 3.66 M/mcL (4.19-5.50); Red Cell Distribution Width 18.7 % (11.5-14.5)
[2018-02-27 05:04] LABS: Calcium 7.9 mg/dL (8.6-10.3); Potassium 4.2 mEq/L (3.5-5.1)
[2018-02-27] MEDS: *HR* Heparin 5,000 UNIT/ML VIAL SQ SCH ×2 (05:50→18:21)
[2018-02-27] MEDS: Piperacillin/Tazobactam 3.375 GM in 0.9 % Sodium Chloride Mini Bag 100 ML IVPB SCH ×2 (05:51→17:31)
[2018-02-27 06:02] LABS: Lymphocytes # 0.7 K/mcL (0.6-4.6); Neutrophils # 15.5 K/mcL (1.6-8.9)
[2018-02-27 06:03] LABS: Anisocytosis 1+ (Not Present); Macrocytosis Present (Not Present); Microcytosis Present (Not Present); Platelet Estimate Normal (Normal); Toxic Granulation Present (Not Present)
--- NOTE | 2018-02-27 06:44 | Pulmonology Progress Note ---
Date of Encounter: 02/27/18 Time of Encounter: 06:44 Assessment and Plan (1) Pneumonia Current Visit: Yes Status: Suspected Cultures as far negative Hola repeating sputum culture as the sample was unacceptable for processing Agree with broad-spectrum antimicrobials his MRSA swab is positive and would need to continue MRSA coverage for at least 48 hours pending culture Duration of antimicrobials depends on clinical response with I suspect 8 days total is appropriate If cultures remain negative over the next 48 hours I suspect he could be de- escalated very safely to likely respiratory fluoroquinolone to complete an 8 day course Qualifiers: Pneumonia type: due to methicillin-resistant Staphylococcus aureus (MRSA) Laterality: right Lung location: upper lobe of lung Qualified Code(s): J15.212 - Pneumonia due to Methicillin resistant Staphylococcus aureus (2) Ground glass opacity present on imaging of lung Current Visit: Yes Status: Acute This could be infection or slow-growing malignancy Recommend repeat imaging after treatment for pneumonia He will need follow-up with CT scan in approximately 6 weeks Pulmonary follow-up as outpatient (3) CARMEN (obstructive sleep apnea) Current Visit: Yes Status: Acute Continue home BiPAP at night and with naps (4) COPD with exacerbation Current Visit: Yes Status: Acute Recommend a 5 day burst of prednisone Continue Symbicort Scheduled bronchodilators (duo nebs) (5) Chronic respiratory failure Current Visit: Yes Status: Acute Continue supplemental oxygen 46 L as needed to keep oxygen saturation between 89 and 92% Qualifiers: Respiratory failure complication: hypoxia Qualified Code(s): J96.11 - Chronic respiratory failure with hypoxia (6) LÁZARO (acute kidney injury) Current Visit: Yes Status: Acute Nephrology following plan for hemodialysis Pulmonary will sign off please call with any questions thank you for the consultation Subjective Principal diagnosis: Pneumonia Interval history: Mr. Madrid states that he is feeling a little bit better than yesterday. He denies any nausea or vomiting overnight. Denies fever he still has an occasional cough. His brought his home BiPAP unit and he worked for a few hours last night. Additionally interventional radiology placed a temporary dialysis catheter and per nephrology appears that there is a plan to proceed with dialysis Objective PUL Vital signs: Last Vital Signs Temp 98 F 02/27/18 04:59 Pulse 81 02/27/18 04:59 Resp 18 02/27/18 04:59 BP 165/80 02/27/18 04:59 Pulse Ox 96 02/27/18 04:59 General appearance: no acute distress Eyes: nonicteric Neck: supple Auscultation: bilateral: diminished breath sounds, wheezes (Expiratory wheezes bilaterally noted) Cardiovascular: regular rate and rhythm Gastrointestinal: normoactive bowel sounds, soft, non-tender Integumentary: normal Extremities: no cyanosis, edema Musculoskeletal: no deformities normal mental status, non-focal exam Results - Laboratory Findings CBC and BMP: 02/27/18 04:20 02/27/18 04:20 PT/INR, D-dimer PT 12.8 Seconds (9.4-12.1) H 02/26/18 10:31 Abnormal lab findings: Abnormal lab results WBC 16.5 K/mcL (4.3-11.1) H 02/27/18 04:20 RBC 3.66 M/mcL (4.19-5.50) L 02/27/18 04:20 Hgb 10.8 g/dL (12.9-16.9) L 02/27/18 04:20 Hct 33.9 % (37.5-50.1) L 02/27/18 04:20 RDW 18.7 % (11.5-14.5) H 02/27/18 04:20 Metamyelocytes % 2.0 % (0) H 02/27/18 04:20 Neutrophils # 15.5 K/mcL (1.6-8.9) H 02/27/18 04:20 Monocytes # 2.3 K/mcL (0.0-1.3) H 02/26/18 00:28 Nucleated RBCs/100 WBC 0.1 /100 WBC (0) H 02/26/18 00:28 Toxic Granulation Present (Not Present) A 02/27/18 04:20 Anisocytosis 1+ (Not Present) A 02/27/18 04:20 Microcytosis Present (Not Present) A 02/27/18 04:20 Macrocytosis Present (Not Present) A 02/27/18 04:20 PT 12.8 Seconds (9.4-12.1) H 02/26/18 10:31 Carbon Dioxide 20 mEq/L (23-29) L 02/27/18 04:20 BUN 121 mg/dL (8-23) H 02/27/18 04:20 Creatinine 5.36 mg/dL (0.70-1.30) H 02/27/18 04:20 Est GFR ( Amer) 13 (> 60) L 02/27/18 04:20 Est GFR (Non-Af Amer) 11 (> 60) L 02/27/18 04:20 Glucose 118 mg/dL (70-105) H 02/27/18 04:20 Hemoglobin A1c 5.9 % (-5.6) H 02/26/18 10:31 Calculated Osmolality 332 (280-300) H 02/27/18 04:20 Uric Acid 8.4 mg/dL (2.3-7.6) H 02/26/18 10:31 Calcium 7.9 mg/dL (8.6-10.3) L 02/27/18 04:20 Phosphorus 11.8 mg/dL (2.7-4.5) H 02/26/18 10:31 Magnesium 2.7 mg/dL (1.6-2.6) H 02/26/18 01:40 Creatine Kinase 255 Units/L (30-223) H 02/26/18 10:31 Ur Leukocyte Esterase Trace (Negative) H 02/26/18 00:24 Urine Microscopic RBC 5-15 per hpf (0-3) H 02/26/18 00:24 Urine Microscopic WBC 5-15 per hpf (0-3) H 02/26/18 00:24 Ur Squamous Epith Cells Many per lpf (None-Few) H 02/26/18 00:24 Ur Culture Indicated? NO. (NO) A 02/26/18 00:24 Nasal Screen MRSA (PCR) Positive (Negative) A 02/26/18 08:42 - Microbiology Findings Microbiology Findings: Microbiology, Last 48 Hours 02/27/18 03:23 Sputum Culture - Final Sputum - Clinical Findings Intake & Output: Intake & Output 02/26/18 02/26/18 02/27/18 15:59 23:59 07:59 Intake Total 700 / 700 Output Total 2600 / 2600 350 / 350 Balance -1900 / -1900 -350 / -350 Weight 147.5 kg Consult Discharge Plan - Plan [facility]errals: [facility] [Primary Care Provider] -
[2018-02-27] MEDS ORDERED: Aminoglycoside Consult 1 EACH MC ONE (07:30)
[2018-02-27] MEDS: predniSONE 20 MG TABLET PO SCH (07:43)
[2018-02-27] MEDS: Metoprolol XL (24 HR) Succ 50 MG TAB.ER.24H PO SCH (07:44)
[2018-02-27] MEDS: Aspirin Enteric Coated 325 MG Tablet PO SCH (07:44)
[2018-02-27] MEDS: Cyanocobalamin (B-12) 1,000 MCG TABLET PO SCH (07:44)
[2018-02-27] MEDS: Budesonide/Formoterol 160/4.5 1 PUFF INH IH SCH ×2 (07:49→22:54)
[2018-02-27] MEDS ORDERED: *HR* Heparin 10,000 UNIT/10 ML VIAL IV PRN (08:39)
[2018-02-27] MEDS ORDERED: 0.9 % Sodium Chloride 250 ML IVC PRN (08:39)
[2018-02-27] MEDS ORDERED: 0.9 % Sodium Chloride 1,000 ML PRIME SCH (08:45)
[2018-02-27 09:04] LABS: Potassium,Urine 16.4 mEq/L; Protein/Creatinine Ratio,Urine 0.33 mg/mg (0.00-0.20); Sodium, Urine 41.6 mEq/L
[2018-02-27] MEDS ORDERED: Sodium Bicarbonate 150 MEQ in D5% in Water 1,000 ML IVC SCH ×2 (12:45→13:15)
--- NOTE | 2018-02-27 13:03 | Nephrology Progress Note ---
Date of Encounter: 02/27/18 Time of Encounter: 12:00 - Assessment and Plan (1) LÁZARO (acute kidney injury) Current Visit: Yes Status: Acute Subjective Principal diagnosis: Pneumonia Interval history: Pt seen and examined on HD feeling better overall Objective - Vital Signs Vital signs: Vital Signs Temp Pulse Resp BP Pulse Ox 02/27/18 11:50 179/77 02/27/18 11:35 163/80 02/27/18 11:20 177/80 02/27/18 11:05 195/84 02/27/18 10:50 192/84 02/27/18 10:35 162/65 02/27/18 10:20 97.9 F 20 178/81 02/27/18 07:49 18 90 02/27/18 07:11 98.5 F 76 18 175/67 93 02/27/18 04:59 98 F 81 18 165/80 96 02/27/18 00:46 97.7 F 75 18 158/72 93 02/26/18 22:36 19 95 02/26/18 21:14 97.5 F L 87 18 150/71 98 02/26/18 19:45 97.0 F L 19 189/76 02/26/18 19:25 179/77 02/26/18 19:10 177/78 02/26/18 18:55 166/71 02/26/18 18:40 141/66 02/26/18 18:25 136/62 02/26/18 18:10 133/62 02/26/18 17:55 152/66 02/26/18 17:40 144/62 02/26/18 17:25 97.3 F L 23 160/70 02/26/18 16:06 97.3 F L 72 20 111/64 95 Intake and Output 02/26/18 02/27/18 02/27/18 23:59 07:59 15:59 Intake Total 700 / 700 720 / 720 Output Total 2600 / 2600 350 / 350 500 / 500 Balance -1900 / -1900 -350 / -350 220 / 220 Intake: IV Fluids 100 / 100 Zosyn 3.375 GM In 0.9 % Sodium 100 / 100 Chloride (Mini-Bag +) 100 ML @ 25 mls/hr IVPB Q12HR [facility] Rx#: [id number] Oral 0 / 0 120 / 120 Intake, Rinseback and Flushes 600 / 600 600 / 600 Output: Urine 0 / 0 350 / 350 500 / 500 Total Dialysis (HD) Output 2600 / 2600 Other: Meal Breakfast Percent of Meal Consumed 30% Weight 147.5 kg Hemodialysis Net Fluid Removed 1999 1307 (mL) Patient Weight 02/27/18 23:59 Weight 147.5 kg - Lab 02/27/18 04:20 02/27/18 04:20 Most recent lab results Calcium 7.9 mg/dL (8.6-10.3) L 02/27/18 04:20 Phosphorus 11.8 mg/dL (2.7-4.5) H 02/26/18 10:31 Magnesium 2.7 mg/dL (1.6-2.6) H 02/26/18 01:40 Urine Creatinine 72 mg/dL 02/27/18 08:30 Urine Sodium 41.6 mEq/L 02/27/18 08:30 Urine Total Protein 24 mg/dL (1-14) H 02/27/18 08:30 Consult Discharge Plan - Plan Referrals: [facility] [Primary Care Provider] -
--- NOTE | 2018-02-27 15:06 | Internal Med Progress Note ---
Hospitalist Progress Note - Encounter Date of Encounter: 02/27/18 Time of Encounter: 13:30 - Subjective Interval History: Mr. Madrid is a 67 year old male patient with a history of chronic kidney disease stage IV, hypertension, peripheral arterial disease who presented to the ER at the [facility] initially on Sunday with complaints of generalized weakness. He was evaluated in the ER and was noted to have worsening renal function. He was sent home at that time but did return to the ER with complaints of worsening symptoms. He did have decreased urine output. Also was having worsening swelling and some shortness of breath with exertion. He has also been having dark colored sputum and cough. He was admitted in the hospital for Pneumonia, COPD exacerbation and volume overload with LÁZARO on CKD-4. Pt started on HD through temporary HD cath. He states he is feeling better today. Denied any CP. No cough. - Exam Vitals: Temp Pulse Resp BP Pulse Ox 97.5 F L 76 18 167/85 90 02/27/18 13:40 02/27/18 07:11 02/27/18 13:40 02/27/18 13:40 02/27/18 07:49 Exam: Gen: Alert, awake, Oriented to time,place and person Chest: Diminished breath sounds B/L, Moderate wheezing, mild crackles, Heart: S1S2+ RRR No murmurs Abd: Soft, NT, BS +, No organomegaly Ext: edema +, pulses are palpable, No calf tenderness Neuro : Benign findings Skin: No rash. - Assessment and Plan (1) Acute and chronic respiratory failure with hypoxia Current Visit: Yes Status: Acute Assessment and Plan: Due to pneumonia and volume overload improving still on 5 L nasal cannula oxygen continue Duoneb and empirical abx HD as per Nephro recommendations (2) Pneumonia Current Visit: Yes Status: Suspected Assessment and Plan: Mostly bacterial PNA Nasal MRSA screen positive however clinically pt symptoms improved so d/c Vanc for now Cont zosyn and Levaquin (3) Acute on chronic kidney failure Current Visit: Yes Status: Acute Assessment and Plan: Developed ESRD had temp HD cath now cont HD as per nephro recommendations will talk to Nephro about perm HD cath D/C NahCo3 gtt D/C IVF (4) Benign hypertension with chronic kidney disease, stage IV Current Visit: Yes Status: Chronic Assessment and Plan: Stable with current regimen (5) Hyperlipidemia Current Visit: Yes Status: Chronic Assessment and Plan: continue statin (6) COPD (chronic obstructive pulmonary disease) Current Visit: Yes Status: Chronic Assessment and Plan: In mild exacerbation cont Duoneb and O2 start tapering PO steroids - Time Spent with Patient Total time spent is greater than 50% in coordination of care (as documented) at patient's floor/unit and/or counseling patient: Internal Medicine: Result - Labs CBC & Chem 7: 02/27/18 04:20 02/27/18 04:20 Labs: Short CBC 02/27/18 Range/Units 04:20 WBC 16.5 H (4.3-11.1) K/mcL Hgb 10.8 L (12.9-16.9) g/dL Hct 33.9 L (37.5-50.1) % Plt Count 213 (140-400) K/mcL Neutrophils # 15.5 H (1.6-8.9) K/mcL BMP 02/27/18 04:20 Sodium 141 Potassium 4.2 Chloride 104 Carbon Dioxide 20 L BUN 121 H Creatinine 5.36 H Glucose 118 H Calcium 7.9 L - ABG Interpretation ABG results: PT/INR, D-dimer PT 12.8 Seconds (9.4-12.1) H 02/26/18 10:31 - Impressions Impressions Chest X-Ray 02/26/18 15:34 IMPRESSION: The hemodialysis catheter terminates in the superior vena cava. No pneumothorax is visible. D/ / Fabiano Negron MD / Fabiano Negron MD Interpreting Provider: Fabiano Negron MD Consult Discharge Plan - Plan [facility]errals: [facility] [Primary Care Provider[facility] - (2) Pneumonia Qualifiers: Pneumonia type: due to methicillin-resistant Staphylococcus aureus (MRSA) Laterality: right Lung location: upper lobe of lung Qualified Code(s): J15.212 - Pneumonia due to Methicillin resistant Staphylococcus aureus (3) Acute on chronic kidney failure Qualifiers: Acute renal failure type: unspecified Chronic kidney disease stage: stage 4 ( severe) Qualified Code(s): N17.9 - Acute kidney failure, unspecified; N18.4 - Chronic kidney disease, stage 4 (severe) (5) Hyperlipidemia Qualifiers: Hyperlipidemia type: mixed hyperlipidemia Qualified Code(s): E78.2 - Mixed hyperlipidemia (6) COPD (chronic obstructive pulmonary disease) Qualifiers: COPD type: emphysema Emphysema type: panlobular Qualified Code(s): J43.1 - Panlobular emphysema
[2018-02-27] MEDS ORDERED: Vancomycin 500 MG in 0.9 % Sodium Chloride Mini Bag 100 ML IVPB ONE (17:00)
[2018-02-28] MEDS: Sennosides 8.6 MG TABLET PO SCH ×2 (00:02→20:25)
[2018-02-28] MEDS: *HR* OxyCODONE/APAP 5/325 TABLET PO PRN ×2 (04:29→17:50)
[2018-02-28 04:54] LABS: Basophils % 0.2 %; Eosinophils % 0.2 %; Hematocrit 36.7 % (37.5-50.1); Hemoglobin 11.9 g/dL (12.9-16.9); Immature Granulocytes % 13.5 % (0-4); Lymphocytes # 3.2 K/mcL (0.6-4.6); Lymphocytes % 14.7 %; Mean Corpuscular HGB Conc 32.4 g/dL (31.6-35.5); Mean Corpuscular Hemoglobin 29.6 pg (28.0-33.3); Mean Corpuscular Volume 91.3 fL (83.0-100.0); Mean Platelet Volume 11.2 fL (9.4-12.4); Monocytes # 2.1 K/mcL (0.0-1.3); Monocytes % 9.6 %; Neutrophils # 13.3 K/mcL (1.6-8.9); Platelet Count 221 K/mcL (140-400); Red Blood Count 4.02 M/mcL (4.19-5.50); Red Cell Distribution Width 18.6 % (11.5-14.5); Segmented Neutrophils % 61.8 %
[2018-02-28] MEDS ORDERED: Levofloxacin 500 MG/100 ML 500 MG/100 ML BAG IVPB SCH ×2 (05:00→09:00)
[2018-02-28 05:15] LABS: Calcium 8.4 mg/dL (8.6-10.3); Potassium 3.4 mEq/L (3.5-5.1)
[2018-02-28 05:23] LABS: Platelet Estimate Normal (Normal)
[2018-02-28 05:24] LABS: Anisocytosis 1+ (Not Present)
[2018-02-28] MEDS: *HR* Heparin 5,000 UNIT/ML VIAL SQ SCH ×2 (05:41→16:38)
[2018-02-28] MEDS: Piperacillin/Tazobactam 3.375 GM in 0.9 % Sodium Chloride Mini Bag 100 ML IVPB SCH ×2 (05:41→16:38)
[2018-02-28 07:18] LABS: Adenovirus Not Detected (Not Detect); Bordetella Pertussis Not Detected (Not Detect); Chlamydophila pneumoniae Not Detected (Not Detect); Coronavirus 229E Not Detected (Not Detect); Coronavirus HKU1 Not Detected (Not Detect); Coronavirus NL63 Not Detected (Not Detect); Coronavirus OC43 Not Detected (Not Detect); Human Metapneumovirus Not Detected (Not Detect); Human Rhinovirus/Enterovirus Not Detected (Not Detect); Influenza A Subtype 2009 H1 Not Detected (Not Detect); Influenza A Untypeable Not Detected (Not Detect); Influenza B Not Detected (Not Detect); Mycoplasma pneumoniae Not Detected (Not Detect); Parainfluenza Virus 1 Not Detected (Not Detect); Parainfluenza Virus 2 Not Detected (Not Detect); Parainfluenza Virus 3 Not Detected (Not Detect); Parainfluenza Virus 4 Not Detected (Not Detect); Respiratory Syncytial Virus Not Detected (Not Detect)
[2018-02-28] MEDS: Budesonide/Formoterol 160/4.5 1 PUFF INH IH SCH ×2 (07:31→20:32)
[2018-02-28] MEDS: Ipratropium/Albuterol Neb 3 ML IH PRN ×2 (07:33→20:32)
[2018-02-28] MEDS ORDERED: 0.9 % Sodium Chloride 250 ML IVC PRN (08:02)
[2018-02-28] MEDS ORDERED: *HR* Heparin 10,000 UNIT/10 ML VIAL IV PRN (08:02)
[2018-02-28] MEDS: Metoprolol XL (24 HR) Succ 50 MG TAB.ER.24H PO SCH (08:04)
[2018-02-28] MEDS: Aspirin Enteric Coated 325 MG Tablet PO SCH (08:05)
[2018-02-28] MEDS: predniSONE 20 MG TABLET PO SCH (08:05)
[2018-02-28] MEDS: Cyanocobalamin (B-12) 1,000 MCG TABLET PO SCH (08:05)
[2018-02-28] MEDS: Ondansetron ODT 4 MG TAB.RAPDIS PO PRN (08:14)
[2018-02-28] MEDS ORDERED: 0.9 % Sodium Chloride 1,000 ML PRIME SCH (08:15)
[2018-02-28] MEDS ORDERED: *HR* Heparin 5,000 UNIT/ML VIAL ONE (08:16)
[2018-02-28] MEDS ORDERED: 0.9 % Sodium Chloride 2,000 ML ONE (08:16)
--- NOTE | 2018-02-28 10:12 | Internal Med Progress Note ---
<Luna Hinojosa - Last Filed: 02/28/18 14:23> Hospitalist Progress Note - Encounter Date of Encounter: 02/28/18 Time of Encounter: 09:40 - Subjective Interval History: Patient seen and examined at bedside during dialysis. No acute events overnight. Patient is resting comfortably. Patient states hes not too bad. States that he couldnt sleep last night from feeling nervous and that he had nausea without emesis. Nausea is since resolved. States hes no longer nervous, but still shaky. Reports hes shaky in his chest, explains that his heart feels fluttery. Denies chest pain, palpitations, and shortness of breath. Reports that his weakness seems worse since admission and that his legs feel heavy. Reports swelling has improved but states theres still significant swelling on the tops of his feet. Denies fever, chills. Denies abdominal pain, diarrhea/ constipation. - Exam Vitals: Temp Pulse Resp BP Pulse Ox 97.9 F 74 18 155/73 94 02/28/18 08:30 02/28/18 07:17 02/28/18 08:30 02/28/18 09:15 02/28/18 07:33 Exam: General: Morbidly obese. Alert and oriented x3. No acute distress. Head: atraumatic, normocephalic. Eye: pupils equal and round. Sclera anicteric. EOMI. Mouth: oral mucosa moist. Normal oropharynx. Neck: supple. Trachea midline. Lungs: Mild diffuse end-expiratory wheezing throughout right lung. Left lung is clear. No rhonchi or rales. No respiratory distress. No accessory muscle use. Cardiovascular: Normal S1 & S2. No rubs or gallops. No JVD. Pulse regular. No tachycardia. Abdomen: Morbidly obese. Normal bowel sounds. Mild diffuse tenderness to palpation. No rigidity, no rebound. Extremities: 1+ pitting edema bilaterally. Venous stasis changes. No tenderness. No joint swelling or clubbing. Skin: warm, dry, and intact. - Assessment and Plan (1) Acute on chronic kidney failure Current Visit: Yes Status: Acute Assessment and Plan: History of CKD. Developed ESRD. Possibly secondary to urinary retention. Day 2 of hemodialysis. Cont HD, per Nephro recommendations Kidney function improving and patient producing urine. NahCo3 gtt discontinued. IVF discontinued. Nephrology consulted and following. (2) Pneumonia Current Visit: Yes Status: Suspected Assessment and Plan: Suspect bacterial PNA Nasal MRSA screen positive. Respiratory virus panel was negative. CT chest showed increased ground glass opacity in CANDACE. Suspicious for low grade lung carcinoma. Overlying pneumonia also possible. Blood cultures are NGTD. Clinically improved. Vanc discontinued. Continue zosyn and Levaquin (day 3). De-escalate antibiotics if blood cultures remain negative, per Pulmonology. Pulmonology consulted and following. (3) COPD (chronic obstructive pulmonary disease) Current Visit: Yes Status: Chronic Assessment and Plan: Presented with mild exacerbation. Cont Duoneb and O2 Tapered prednisone from 40 to 30mg today. (4) Benign hypertension with chronic kidney disease, stage IV Current Visit: Yes Status: Chronic Assessment and Plan: Stable with current regimen (5) Hyperlipidemia Current Visit: Yes Status: Chronic Assessment and Plan: Continue statin (6) Acute and chronic respiratory failure with hypoxia Current Visit: Yes Status: Acute Assessment and Plan: History of COPD. Likely secondary to pneumonia and volume overload. Improving. Still on 5 L nasal cannula oxygen. Continue Duoneb and empirical abx. HD as per Nephro recommendations. DVT Prophylaxis: SubQ Heparin - Time Spent with Patient Total time spent is greater than 50% in coordination of care (as documented) at patient's floor/unit and/or counseling patient: Internal Medicine: Result - Labs CBC & Chem 7: 02/28/18 04:20 02/28/18 04:20 Labs: Short CBC 02/28/18 Range/Units 04:20 WBC 21.5 H (4.3-11.1) K/mcL Hgb 11.9 L (12.9-16.9) g/dL Hct 36.7 L (37.5-50.1) % Plt Count 221 (140-400) K/mcL Neutrophils # 13.3 H (1.6-8.9) K/mcL BMP 02/28/18 04:20 Sodium 140 Potassium 3.4 L Chloride 101 Carbon Dioxide 24 BUN 76 H Creatinine 4.45 H Glucose 100 Calcium 8.4 L - ABG Interpretation ABG results: PT/INR, D-dimer PT 12.8 Seconds (9.4-12.1) H 02/26/18 10:31 - Impressions Impressions Retroperitoneum Ultrasound 02/27/18 19:30 IMPRESSION: Unremarkable ultrasound of the kidneys. Significant distention of the urinary bladder. Patient is unable to void. Suspect significant retention. Enlarged prostate. Low level echoes are noted on the dependent side of the bladder likely debris. Only a left ureteral jet is noted. D/ / Milli Ly MD / Milli Ly MD Interpreting Provider: Milli Ly MD Consult Discharge Plan - Plan [facility]errals: [facility] [Primary Care Provider] - <Pam Santiago - Last Filed: 02/28/18 14:47> Hospitalist Progress Note - Encounter Date of Encounter: 02/28/18 - Exam Vitals: Temp Pulse Resp BP Pulse Ox 97.5 F L 74 18 141/73 94 02/28/18 12:20 02/28/18 07:17 02/28/18 12:20 02/28/18 12:20 02/28/18 07:33 - Assessment and Plan (1) Acute on chronic kidney failure Current Visit: Yes Status: Acute (2) Benign hypertension with chronic kidney disease, stage IV Current Visit: Yes Status: Chronic (3) Pneumonia Current Visit: Yes Status: Suspected (4) Hyperlipidemia Current Visit: Yes Status: Chronic (5) COPD (chronic obstructive pulmonary disease) Current Visit: Yes Status: Chronic (6) Acute and chronic respiratory failure with hypoxia Current Visit: Yes Status: Acute - Time Spent with Patient Total time spent is greater than 50% in coordination of care (as documented) at patient's floor/unit and/or counseling patient: Internal Medicine: Result - Labs CBC & Chem 7: 02/28/18 04:20 02/28/18 04:20 Labs: Short CBC 02/28/18 Range/Units 04:20 WBC 21.5 H (4.3-11.1) K/mcL Hgb 11.9 L (12.9-16.9) g/dL Hct 36.7 L (37.5-50.1) % Plt Count 221 (140-400) K/mcL Neutrophils # 13.3 H (1.6-8.9) K/mcL BMP 02/28/18 04:20 Sodium 140 Potassium 3.4 L Chloride 101 Carbon Dioxide 24 BUN 76 H Creatinine 4.45 H Glucose 100 Calcium 8.4 L - ABG Interpretation ABG results: PT/INR, D-dimer PT 12.8 Seconds (9.4-12.1) H 02/26/18 10:31 - Impressions Impressions Retroperitoneum Ultrasound 02/27/18 19:30 IMPRESSION: Unremarkable ultrasound of the kidneys. Significant distention of the urinary bladder. Patient is unable to void. Suspect significant retention. Enlarged prostate. Low level echoes are noted on the dependent side of the bladder likely debris. Only a left ureteral jet is noted. D/ / Milli Ly MD / Milli Ly MD Interpreting Provider: Milli Ly MD - Attending Attestation I examined this patient and my medical decision-making was reviewed with the Resident Physician Dr. Hinojosa. I agree with the documented findings, disposition and treatment plan as described except to the extent set forth below. Mr. Madrid is a 67 year old male patient with a history of chronic kidney disease stage IV, hypertension, peripheral arterial disease who presented to the ER at the [facility] initially on Sunday with complaints of generalized weakness. He was evaluated in the ER and was noted to have worsening renal function. He was sent home at that time but did return to the ER with complaints of worsening symptoms. He did have decreased urine output. Also was having worsening swelling and some shortness of breath with exertion. He has also been having dark colored sputum and cough. He was admitted in the hospital for Pneumonia, COPD exacerbation and volume overload with LÁZARO on CKD-4. Pt started on HD through temporary HD cath. He states he is feeling better today. Denied any CP. No cough. He did have significant urinary retention, placed the Ramires catheter today. Retroperitoneal ultrasound showed unremarkable kidneys however he does have significant distention of the urinary bladder with BPH. Urology consulted. Gen: A, A, O x 3 Chest: Diminished BS b/l, No crackles, No rales Heart: S1S2+ RRR No murmurs Ext: edema + 1. Acute on chronic hypoxic respiratory failure improving 2. Acute pneumonia mostly bacterial continue broad-spectrum antibiotic 3. Acute on CKD - IV cont HD as per Nephro recommendations 4. urinary retention Ramires placed Flomax started Urology consulted <Luna Hinojosa - Last Filed: 02/28/18 14:23> (1) Acute on chronic kidney failure Qualifiers: Acute renal failure type: unspecified Chronic kidney disease stage: stage 4 ( severe) Qualified Code(s): N17.9 - Acute kidney failure, unspecified; N18.4 - Chronic kidney disease, stage 4 (severe) (2) Pneumonia Qualifiers: Pneumonia type: due to methicillin-resistant Staphylococcus aureus (MRSA) Laterality: right Lung location: upper lobe of lung Qualified Code(s): J15.212 - Pneumonia due to Methicillin resistant Staphylococcus aureus (3) COPD (chronic obstructive pulmonary disease) Qualifiers: COPD type: emphysema Emphysema type: panlobular Qualified Code(s): J43.1 - Panlobular emphysema (5) Hyperlipidemia Qualifiers: Hyperlipidemia type: mixed hyperlipidemia Qualified Code(s): E78.2 - Mixed hyperlipidemia <ThalMckenna montesinosbu - Last Filed: 02/28/18 14:47> (1) Acute on chronic kidney failure Qualifiers: Acute renal failure type: unspecified Chronic kidney disease stage: stage 4 ( severe) Qualified Code(s): N17.9 - Acute kidney failure, unspecified; N18.4 - Chronic kidney disease, stage 4 (severe) (3) Pneumonia Qualifiers: Pneumonia type: due to methicillin-resistant Staphylococcus aureus (MRSA) Laterality: right Lung location: upper lobe of lung Qualified Code(s): J15.212 - Pneumonia due to Methicillin resistant Staphylococcus aureus (4) Hyperlipidemia Qualifiers: Hyperlipidemia type: mixed hyperlipidemia Qualified Code(s): E78.2 - Mixed hyperlipidemia (5) COPD (chronic obstructive pulmonary disease) Qualifiers: COPD type: emphysema Emphysema type: panlobular Qualified Code(s): J43.1 - Panlobular emphysema
--- NOTE | 2018-02-28 11:09 | Electrocardiograph Report ---
[place] [id number] Test Date: 2018-02-25 Pat Name: Dereck Madrid Department: [id number] Room: 2A Gender: M [employer]: : 1950 Requested By: Anh Regalado Order Number: [id number] Reading MD: Hermelinda Santiago Measurements Intervals [place] Rate: 71 P: 69 NH: 153 QRS: 87 QRSD: 107 T: 51 QT: 406 QTc: 442 Interpretive Statements Sinus rhythm Borderline right axis deviation Electronically Signed On 02-28-2018 11:07:29 EDT by Hermelinda Santiago
[2018-02-28] MEDS ORDERED: *HR* Promethazine 25 MG/ML VIAL IVP PRN (13:05)
--- NOTE | 2018-02-28 13:51 | Urology - Consult Note ---
<Nhung Post N - Last Filed: 02/28/18 13:46> Date of Encounter: 02/28/18 Time of Encounter: 13:46 - Assessment and Plan (1) Urinary retention Current Visit: Yes Status: Acute Assessment and plan: Patient is a 67 year old male who presents with acute urinary retention in the setting of acute kidney injury, pneumonia and multiple comorbidities. Patient currently has indwelling spann catheter and is taking Flomax daily. Serum creatinine is improved from 6.64 to 4.45. WBC markedly elevated. Plan to continue spann catheter and Flomax for one week. Will see patient in the office within 7-10 days for voiding trial and possible catheter removal. Plan discussed with patient, and he agrees. Urology CN:RODNEY Consult date: 02/28/18 Reason for consult Urology: Other (acute urinary retention) History of present illness: Patient is a 67 year old male who presents with acute urinary retention. Patient was admitted to the hospital on 02/26/18 with stage IV renal failure and worsening creatinine. Patient states he has been feeling very weak over the last 5 days or so and initially presented to [facility] where he was evaluated and sent home. Patient reports acute worsening in weakness with decreased urine output and states he then proceeded to [facility] ED where he was subsequently admitted. Patient denies history of prostate cancer or other urologic problems. Patient denies family history of prostate cancer or renal cancer. Patient does not routinely follow with a urologist and states this is the first time he's experienced urinary retention. Patient denies flank pain, fever, chills, gross hematuria. Past Med Surg Social Fam HX - Past Medical History Medical history: arthritis, CHF, COPD, GERD, hyperlipidemia, hypertension, peripheral artery disease, renal disease Additional medical history: sleep apnea Psychiatric history: no psych history - Past Surgical History Surgical History: other Additional surgical history: dental - bronchoscopy x 2 - egd - right femoral stent - spine stimulator - Social History Smoking Status: Former smoker Smokeless Tobacco Status: No Alcohol use: occasionally Drug use: none - Family History Mother Adopted: No Family Member Ethnicity: Non- Living Status: Hx Family Cardiac Disorders: No Hx Family Respiratory Disorders: Yes (copd) Hx Family Cancer: Yes (ovarian cancer) Hx Family GI Disorders: No Hx Family Endocrine Disorder: No Hx Family Neuromuscular Disorders: No Hx Family Neurologic Disorders: No Hx Family HEENT Disorders: No Hx Family Autoimmune Disorders: No Medications and Allergies Allopurinol [Zyloprim 100 MG] 200 mg PO DAILY 09/28/15 [History] Baclofen [Lioresal] 15 mg PO TID PRN 09/28/15 [History] Budesonide/Formoterol 160/4.5 [Symbicort 160/4.5] 2 puff IH BIDR 09/28/15 [ History] Cetirizine HCl [Zyrtec] 10 mg PO DAILY 09/28/15 [History] Meclizine HCl [Verticalm] 12.5 mg PO BID PRN 09/28/15 [History] OxyCODONE/APAP 5/325 [Percocet 5/325 MG] 1 tab PO Q6HR PRN 09/28/15 [History] Pantoprazole Sodium [Protonix] 40 mg PO BID 09/28/15 [History] Simvastatin [Zocor] 40 mg PO DAILY 09/28/15 [History] Albuterol Sulfate [Proair Hfa] 2 puff IH Q4H PRN 12/14/15 [History] Aspirin Enteric Coated [Aspirin EC] 325 mg PO DAILY 12/14/15 [History] Ondansetron [Zofran] 8 mg PO BID PRN 12/14/15 [History] Calcitriol 0.5 mcg PO DAILY 02/26/18 [History] Cyanocobalamin (Vitamin B-12) [Vitamin B12] 1,000 mcg PO DAILY 02/26/18 [History ] Metoprolol Succinate [Kapspargo Sprinkle] 50 mg PO DAILY 02/26/18 [History] Sennosides [Senna] 2 tab PO HS 02/26/18 [History] Tiotropium Taberg [Spiriva Respimat] 2 puff IH DAILY 02/26/18 [History] 3 Allergy/AdvReac Type Severity Reaction Status Date / Time NSAIDS (Non-Steroidal Allergy See Verified 09/28/15 20:55 Anti-Inflamma Comments Review of Systems - Constitutional fatigue, malaise, weakness, no chills, no fever(s) - EENT Nose, mouth and throat: no dizziness, no headache(s) - Cardiovascular dyspnea, no chest pain, no diaphoresis - Respiratory cough, dyspnea - Gastrointestinal no abdominal pain, no nausea, no vomiting - Genitourinary difficulty urinating, urinary hesitancy, no dysuria, no flank pain, no hematuria , no urinary frequency, no urinary incontinence, no urinary urgency - Musculoskeletal no back pain, no muscle weakness - Integumentary swelling, no erythema, no rash - Neurological no confusion, no syncope - Psychiatric no anxiety, no confusion - Hematologic/Lymphatic no easy bleeding, no easy bruising, no lymphadenopathy - Allergic/Immunologic wheezing, no throat swelling Exam Initial Vital Signs Temp Pulse Resp BP Pulse Ox 97.8 F 71 16 129/47 94 02/25/18 23:00 02/25/18 23:00 02/25/18 23:00 02/25/18 23:00 02/25/18 23:00 - General physical appearance Present: no distress, no pain, chronically ill, obese - Eyes Present: PERRL, normal ocular movement - ENT Present: normal nares, no hearing loss, no congestion - Neck Present: no masses, trachea midline - Respiratory Absent: normal respiratory effort (respirations equal and unlabored with continuous flow O2) - Cardiovascular Cardiovascular exam IM: RRR - Abdomen Abdomen: Present: soft, non tender - Genitourinary other (spann catheter indwelling and draining clear urine in tubing; bedside bag just emptied by nurse) Urethral meatis: Present: patent - Integumentary Present: no rash, no abnormal pigmentation - Neurologic Present: normal coordination - Musculoskeletal Present: other (normal posture ) Urology Results - Labs 02/28/18 04:20 02/28/18 04:20 Abnormal lab results WBC 21.5 K/mcL (4.3-11.1) H 02/28/18 04:20 RBC 4.02 M/mcL (4.19-5.50) L 02/28/18 04:20 Hgb 11.9 g/dL (12.9-16.9) L 02/28/18 04:20 Hct 36.7 % (37.5-50.1) L 02/28/18 04:20 RDW 18.6 % (11.5-14.5) H 02/28/18 04:20 Immature Gran % 13.5 % (0-4) H 02/28/18 04:20 Metamyelocytes % 2.0 % (0) H 02/27/18 04:20 Neutrophils # 13.3 K/mcL (1.6-8.9) H 02/28/18 04:20 Monocytes # 2.1 K/mcL (0.0-1.3) H 02/28/18 04:20 Nucleated RBCs/100 WBC 0.1 /100 WBC (0) H 02/26/18 00:28 Toxic Granulation Present (Not Present) A 02/27/18 04:20 Anisocytosis 1+ (Not Present) A 02/28/18 04:20 Microcytosis Present (Not Present) A 02/27/18 04:20 Macrocytosis Present (Not Present) A 02/27/18 04:20 PT 12.8 Seconds (9.4-12.1) H 02/26/18 10:31 Potassium 3.4 mEq/L (3.5-5.1) L 02/28/18 04:20 BUN 76 mg/dL (8-23) H 02/28/18 04:20 Creatinine 4.45 mg/dL (0.70-1.30) H 02/28/18 04:20 Est GFR ( Amer) 16 (> 60) L 02/28/18 04:20 Est GFR (Non-Af Amer) 13 (> 60) L 02/28/18 04:20 Hemoglobin A1c 5.9 % (-5.6) H 02/26/18 10:31 Calculated Osmolality 313 (280-300) H 02/28/18 04:20 Uric Acid 8.4 mg/dL (2.3-7.6) H 02/26/18 10:31 Calcium 8.4 mg/dL (8.6-10.3) L 02/28/18 04:20 Phosphorus 11.8 mg/dL (2.7-4.5) H 02/26/18 10:31 Magnesium 2.7 mg/dL (1.6-2.6) H 02/26/18 01:40 Creatine Kinase 255 Units/L (30-223) H 02/26/18 10:31 Ur Leukocyte Esterase Trace (Negative) H 02/26/18 00:24 Urine Microscopic RBC 5-15 per hpf (0-3) H 02/26/18 00:24 Urine Microscopic WBC 5-15 per hpf (0-3) H 02/26/18 00:24 Ur Squamous Epith Cells Many per lpf (None-Few) H 02/26/18 00:24 Ur Culture Indicated? NO. (NO) A 02/26/18 00:24 Protein/Creatinin Ratio 0.33 mg/mg (0.00-0.20) H 02/27/18 08:30 Urine Total Protein 24 mg/dL (1-14) H 02/27/18 08:30 Nasal Screen MRSA (PCR) Positive (Negative) A 02/26/18 08:42 Diabetes panel 02/28/18 Range/Units 04:20 Sodium 140 (136-145) mEq/L Potassium 3.4 L (3.5-5.1) mEq/L Chloride 101 (98-107) mEq/L Carbon Dioxide 24 (23-29) mEq/L BUN 76 H (8-23) mg/dL Creatinine 4.45 H (0.70-1.30) mg/dL Glucose 100 (70-105) mg/dL Calcium 8.4 L (8.6-10.3) mg/dL Calcium panel 02/28/18 Range/Units 04:20 Calcium 8.4 L (8.6-10.3) mg/dL Pituitary panel 02/28/18 Range/Units 04:20 Sodium 140 (136-145) mEq/L Potassium 3.4 L (3.5-5.1) mEq/L Chloride 101 (98-107) mEq/L Carbon Dioxide 24 (23-29) mEq/L BUN 76 H (8-23) mg/dL Creatinine 4.45 H (0.70-1.30) mg/dL Glucose 100 (70-105) mg/dL Calcium 8.4 L (8.6-10.3) mg/dL Adrenal panel 02/28/18 Range/Units 04:20 Sodium 140 (136-145) mEq/L Potassium 3.4 L (3.5-5.1) mEq/L Chloride 101 (98-107) mEq/L Carbon Dioxide 24 (23-29) mEq/L BUN 76 H (8-23) mg/dL Creatinine 4.45 H (0.70-1.30) mg/dL Glucose 100 (70-105) mg/dL Calcium 8.4 L (8.6-10.3) mg/dL All other labs normal. Consult Discharge Plan - Plan [facility]errals: [facility] [Primary Care Provider[facility] - <Dm Zepeda - Last Filed: 02/28/18 16:37> Date of Encounter: 02/28/18 Exam Initial Vital Signs Temp Pulse Resp BP Pulse Ox 97.8 F 71 16 129/47 94 02/25/18 23:00 02/25/18 23:00 02/25/18 23:00 02/25/18 23:00 02/25/18 23:00 Urology Results - Labs 02/28/18 04:20 02/28/18 04:20 Abnormal lab results WBC 21.5 K/mcL (4.3-11.1) H 02/28/18 04:20 RBC 4.02 M/mcL (4.19-5.50) L 02/28/18 04:20 Hgb 11.9 g/dL (12.9-16.9) L 02/28/18 04:20 Hct 36.7 % (37.5-50.1) L 02/28/18 04:20 RDW 18.6 % (11.5-14.5) H 02/28/18 04:20 Immature Gran % 13.5 % (0-4) H 02/28/18 04:20 Metamyelocytes % 2.0 % (0) H 02/27/18 04:20 Neutrophils # 13.3 K/mcL (1.6-8.9) H 02/28/18 04:20 Monocytes # 2.1 K/mcL (0.0-1.3) H 02/28/18 04:20 Nucleated RBCs/100 WBC 0.1 /100 WBC (0) H 02/26/18 00:28 Toxic Granulation Present (Not Present) A 02/27/18 04:20 Anisocytosis 1+ (Not Present) A 02/28/18 04:20 Microcytosis Present (Not Present) A 02/27/18 04:20 Macrocytosis Present (Not Present) A 02/27/18 04:20 PT 12.8 Seconds (9.4-12.1) H 02/26/18 10:31 Potassium 3.4 mEq/L (3.5-5.1) L 02/28/18 04:20 BUN 76 mg/dL (8-23) H 02/28/18 04:20 Creatinine 4.45 mg/dL (0.70-1.30) H 02/28/18 04:20 Est GFR ( Amer) 16 (> 60) L 02/28/18 04:20 Est GFR (Non-Af Amer) 13 (> 60) L 02/28/18 04:20 Hemoglobin A1c 5.9 % (-5.6) H 02/26/18 10:31 Calculated Osmolality 313 (280-300) H 02/28/18 04:20 Uric Acid 8.4 mg/dL (2.3-7.6) H 02/26/18 10:31 Calcium 8.4 mg/dL (8.6-10.3) L 02/28/18 04:20 Phosphorus 11.8 mg/dL (2.7-4.5) H 02/26/18 10:31 Magnesium 2.7 mg/dL (1.6-2.6) H 02/26/18 01:40 Creatine Kinase 255 Units/L (30-223) H 02/26/18 10:31 Ur Leukocyte Esterase Trace (Negative) H 02/26/18 00:24 Urine Microscopic RBC 5-15 per hpf (0-3) H 02/26/18 00:24 Urine Microscopic WBC 5-15 per hpf (0-3) H 02/26/18 00:24 Ur Squamous Epith Cells Many per lpf (None-Few) H 02/26/18 00:24 Ur Culture Indicated? NO. (NO) A 02/26/18 00:24 Protein/Creatinin Ratio 0.33 mg/mg (0.00-0.20) H 02/27/18 08:30 Urine Total Protein 24 mg/dL (1-14) H 02/27/18 08:30 Nasal Screen MRSA (PCR) Positive (Negative) A 02/26/18 08:42 Diabetes panel 02/28/18 Range/Units 04:20 Sodium 140 (136-145) mEq/L Potassium 3.4 L (3.5-5.1) mEq/L Chloride 101 (98-107) mEq/L Carbon Dioxide 24 (23-29) mEq/L BUN 76 H (8-23) mg/dL Creatinine 4.45 H (0.70-1.30) mg/dL Glucose 100 (70-105) mg/dL Calcium 8.4 L (8.6-10.3) mg/dL Calcium panel 02/28/18 Range/Units 04:20 Calcium 8.4 L (8.6-10.3) mg/dL Pituitary panel 02/28/18 Range/Units 04:20 Sodium 140 (136-145) mEq/L Potassium 3.4 L (3.5-5.1) mEq/L Chloride 101 (98-107) mEq/L Carbon Dioxide 24 (23-29) mEq/L BUN 76 H (8-23) mg/dL Creatinine 4.45 H (0.70-1.30) mg/dL Glucose 100 (70-105) mg/dL Calcium 8.4 L (8.6-10.3) mg/dL Adrenal panel 02/28/18 Range/Units 04:20 Sodium 140 (136-145) mEq/L Potassium 3.4 L (3.5-5.1) mEq/L Chloride 101 (98-107) mEq/L Carbon Dioxide 24 (23-29) mEq/L BUN 76 H (8-23) mg/dL Creatinine 4.45 H (0.70-1.30) mg/dL Glucose 100 (70-105) mg/dL Calcium 8.4 L (8.6-10.3) mg/dL All other labs normal. - Attending Attestation Patient seen and examined with the PA. Agree with assessment and plan. Recommend to continue catheter. Consider starting tamsulosin 0.4mg PO daily if blood pressure allows. We will do a voiding trial as an outpatient.
[2018-03-01] MEDS: Piperacillin/Tazobactam 3.375 GM in 0.9 % Sodium Chloride Mini Bag 100 ML IVPB SCH ×3 (00:18→16:00)
[2018-03-01] MEDS: *HR* OxyCODONE/APAP 5/325 TABLET PO PRN ×3 (00:18→20:38)
[2018-03-01] MEDS: *HR* Heparin 5,000 UNIT/ML VIAL SQ SCH ×2 (06:12→17:27)
--- NOTE | 2018-03-01 07:44 | Urology Progress Note ---
Date of Encounter: 03/01/18 Time of Encounter: 07:42 - Assessment and Plan (1) Urinary retention Current Visit: Yes Status: Acute Assessment and plan: 67-year-old man with a history of urinary retention and renal failure. I recommend that he return to our office in 1-2 weeks for a voiding trial. I answered all his questions. Urology will sign off. Please call with any questions. Progress Note Narrative: Doing well today. No issues with his catheter. Urine is clear. Objective Initial Vital Signs Temp Pulse Resp BP Pulse Ox 97.8 F 71 16 129/47 94 02/25/18 23:00 02/25/18 23:00 02/25/18 23:00 02/25/18 23:00 02/25/18 23:00 - General physical appearance Present: well developed, well nourished, no distress - Respiratory Present: normal respiratory effort - Abdomen Present: soft - Genitourinary Urine Appearance: Present: Clear - Labs 02/28/18 04:20 02/28/18 04:20 Consult Discharge Plan - Plan Referrals: [facility] [Primary Care Provider] -
[2018-03-01 08:51] LABS: Hematocrit 40.2 % (37.5-50.1); Hemoglobin 12.8 g/dL (12.9-16.9); Mean Corpuscular HGB Conc 31.8 g/dL (31.6-35.5); Mean Corpuscular Hemoglobin 29.8 pg (28.0-33.3); Mean Corpuscular Volume 93.5 fL (83.0-100.0); Mean Platelet Volume 11.4 fL (9.4-12.4); Platelet Count 237 K/mcL (140-400)
--- NOTE | 2018-03-01 08:51 | Internal Med Progress Note ---
<Luna Hinojosa - Last Filed: 03/01/18 13:05> Hospitalist Progress Note - Encounter Date of Encounter: 03/01/18 Time of Encounter: 08:35 - Subjective Interval History: Patient seen and examined. No acute events overnight. The patient is sitting comfortably in bed. He states he feels hell be sick. Denies emesis. States that hes had morning nausea for 3-4 years. Otherwise, states hes overall better. Reports that swelling is improved. Denies chest pain and shortness of breath. Denies fever/chills. Denies abdominal pain, constipation/diarrhea. - Exam Vitals: Temp Pulse Resp BP Pulse Ox 98.3 F 100 18 118/69 92 03/01/18 06:39 03/01/18 06:39 03/01/18 06:39 03/01/18 06:39 03/01/18 06:39 Exam: General: Morbidly obese. Alert and oriented x3. No acute distress. Head: atraumatic, normocephalic. 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 Eye: pupils equal and round. Sclera anicteric. EOMI. Mouth: oral mucosa moist. Normal oropharynx. Neck: supple. Trachea midline. Lungs: CTAB. No rhonchi, rales, or wheezing. No respiratory distress. No accessory muscle use. Cardiovascular: Normal S1 & S2. No rubs or gallops. No JVD. Pulse regular. Tachycardia. Abdomen: Morbidly obese. Normal bowel sounds. Mild diffuse tenderness to palpation, particularly at umbilical hernia. No rigidity, no rebound. Extremities: 1+ pitting edema bilaterally, improved. Venous stasis changes. No tenderness. No joint swelling or clubbing. Skin: warm, dry, and intact. - Assessment and Plan (1) Acute on chronic kidney failure Current Visit: Yes Status: Acute Assessment and Plan: History of CKD. Developed ESRD. Possibly secondary to urinary retention. HD, per Nephro recommendations. Kidney function improving and patient producing urine. NahCo3 gtt discontinued. IVF discontinued. Nephrology consulted and following. (2) Pneumonia Current Visit: Yes Status: Suspected Assessment and Plan: Suspect bacterial PNA Nasal MRSA screen positive. Respiratory virus panel was negative. CT chest showed increased ground glass opacity in CANDACE. Suspicious for low grade lung carcinoma. Overlying pneumonia also possible. Blood cultures are NGTD. Clinically improved. Vanc discontinued. Continue zosyn and Levaquin (day 4). De-escalate antibiotics if blood cultures remain negative, per Pulmonology. Pulmonology consulted and following. (3) Urinary retention Current Visit: Yes Status: Acute Assessment and Plan: No previous history of urinary retention. Retroperitoneal ultrasound showed urinary retention with enlarged prostate. No hydronephrosis. Spann catheter in place. Continue spann and Flomax for 1 week, per Urology. Urology was consulted and signed off. (4) COPD (chronic obstructive pulmonary disease) Current Visit: Yes Status: Chronic Assessment and Plan: Presented with mild exacerbation. Cont Duoneb and O2 WBC elevated to 29.3. Discontinue prednisone 30, monitor WBC. (5) Benign hypertension with chronic kidney disease, stage IV Current Visit: Yes Status: Chronic Assessment and Plan: Stable with current regimen (6) Hyperlipidemia Current Visit: Yes Status: Chronic Assessment and Plan: Continue statin (7) Acute and chronic respiratory failure with hypoxia Current Visit: Yes Status: Acute Assessment and Plan: History of COPD. Likely secondary to pneumonia and volume overload. Improving. Still on 5 L nasal cannula oxygen. Continue Duoneb and empirical abx. HD as per Nephro recommendations. - Time Spent with Patient Total time spent is greater than 50% in coordination of care (as documented) at patient's floor/unit and/or counseling patient: Internal Medicine: Result - Labs CBC & Chem 7: 03/01/18 06:59 03/01/18 06:59 - ABG Interpretation ABG results: PT/INR, D-dimer PT 12.8 Seconds (9.4-12.1) H 02/26/18 10:31 Consult Discharge Plan - Plan Referrals: [facility] [Primary Care Provider] - <Pam Santiago - Last Filed: 03/01/18 13:24> Hospitalist Progress Note - Encounter Date of Encounter: 03/01/18 - Exam Vitals: Temp Pulse Resp BP Pulse Ox 98.7 F 91 18 112/56 92 03/01/18 10:38 03/01/18 10:38 03/01/18 10:38 03/01/18 10:38 03/01/18 10:38 - Assessment and Plan (1) Acute on chronic kidney failure Current Visit: Yes Status: Acute (2) Benign hypertension with chronic kidney disease, stage IV Current Visit: Yes Status: Chronic (3) Urinary retention Current Visit: Yes Status: Acute (4) Pneumonia Current Visit: Yes Status: Suspected (5) Hyperlipidemia Current Visit: Yes Status: Chronic (6) COPD (chronic obstructive pulmonary disease) Current Visit: Yes Status: Chronic (7) Acute and chronic respiratory failure with hypoxia Current Visit: Yes Status: Acute - Time Spent with Patient Total time spent is greater than 50% in coordination of care (as documented) at patient's floor/unit and/or counseling patient: Internal Medicine: Result - Labs CBC & Chem 7: 03/01/18 06:59 03/01/18 06:59 Labs: Short CBC 03/01/18 Range/Units 06:59 WBC 29.3 H (4.3-11.1) K/mcL Hgb 12.8 L (12.9-16.9) g/dL Hct 40.2 (37.5-50.1) % Plt Count 237 (140-400) K/mcL Neutrophils # 15.2 H (1.6-8.9) K/mcL BMP 03/01/18 06:59 Sodium 136 Potassium 4.1 Chloride 93 L Carbon Dioxide 24 BUN 51 H Creatinine 5.26 H Glucose 117 H Calcium 9.0 - ABG Interpretation ABG results: PT/INR, D-dimer PT 12.8 Seconds (9.4-12.1) H 02/26/18 10:31 - Attending Attestation I examined this patient and my medical decision-making was reviewed with the Resident Physician Dr. Hinojosa. I agree with the documented findings, disposition and treatment plan as described except to the extent set forth below. Mr. Madrid is a 67 year old male patient with a history of chronic kidney disease stage IV, hypertension, peripheral arterial disease who presented to the ER at the [facility] initially on Sunday with complaints of generalized weakness. He was evaluated in the ER and was noted to have worsening renal function. He was sent home at that time but did return to the ER with complaints of worsening symptoms. He did have decreased urine output. Also was having worsening swelling and some shortness of breath with exertion. He has also been having dark colored sputum and cough. He was admitted in the hospital for Pneumonia, COPD exacerbation and volume overload with LÁZARO on CKD-4. Pt started on HD through temporary HD cath. He states he is feeling better today. Denied any CP. No cough. He did have significant urinary retention, placed the Spann catheter today. Retroperitoneal ultrasound showed unremarkable kidneys however he does have significant distention of the urinary bladder with BPH. No events over night. Gen: A, A, O x 3 Chest: Diminished BS b/l, No crackles, No rales Heart: S1S2+ RRR No murmurs Ext: edema + 1. Acute on chronic hypoxic respiratory failure improving 2. Acute pneumonia mostly bacterial continue broad-spectrum antibiotic WBC trending up.. mostly due to steroids clinically pt seems to be doing better will d/c steroids cont close monitoring 3. Acute on CKD - IV cont HD as per Nephro recommendations 4. urinary retention Spann placed On Flomax Appreciate Urology recommendations <Luna Hinojosa - Last Filed: 03/01/18 13:05> (1) Acute on chronic kidney failure Qualifiers: Acute renal failure type: unspecified Chronic kidney disease stage: stage 4 ( severe) Qualified Code(s): N17.9 - Acute kidney failure, unspecified; N18.4 - Chronic kidney disease, stage 4 (severe) (2) Pneumonia Qualifiers: Pneumonia type: due to methicillin-resistant Staphylococcus aureus (MRSA) Laterality: right Lung location: upper lobe of lung Qualified Code(s): J15.212 - Pneumonia due to Methicillin resistant Staphylococcus aureus (4) COPD (chronic obstructive pulmonary disease) Qualifiers: COPD type: emphysema Emphysema type: panlobular Qualified Code(s): J43.1 - Panlobular emphysema (6) Hyperlipidemia Qualifiers: Hyperlipidemia type: mixed hyperlipidemia Qualified Code(s): E78.2 - Mixed hyperlipidemia <ThallatayeRambabu - Last Filed: 03/01/18 13:24> (1) Acute on chronic kidney failure Qualifiers: Acute renal failure type: unspecified Chronic kidney disease stage: stage 4 ( severe) Qualified Code(s): N17.9 - Acute kidney failure, unspecified; N18.4 - Chronic kidney disease, stage 4 (severe) (4) Pneumonia Qualifiers: Pneumonia type: due to methicillin-resistant Staphylococcus aureus (MRSA) Laterality: right Lung location: upper lobe of lung Qualified Code(s): J15.212 - Pneumonia due to Methicillin resistant Staphylococcus aureus (5) Hyperlipidemia Qualifiers: Hyperlipidemia type: mixed hyperlipidemia Qualified Code(s): E78.2 - Mixed hyperlipidemia (6) COPD (chronic obstructive pulmonary disease) Qualifiers: COPD type: emphysema Emphysema type: panlobular Qualified Code(s): J43.1 - Panlobular emphysema
[2018-03-01] MEDS ORDERED: 0.9 % Sodium Chloride Mini Bag 100 ML ONE (08:57)
[2018-03-01] MEDS: Ondansetron ODT 4 MG TAB.RAPDIS PO PRN (09:00)
[2018-03-01] MEDS: Cyanocobalamin (B-12) 1,000 MCG TABLET PO SCH (09:00)
[2018-03-01] MEDS: Metoprolol XL (24 HR) Succ 50 MG TAB.ER.24H PO SCH (09:00)
[2018-03-01] MEDS ORDERED: predniSONE 10 MG TABLET PO SCH (09:00)
[2018-03-01] MEDS: Aspirin Enteric Coated 325 MG Tablet PO SCH (09:00)
[2018-03-01 09:10] LABS: Potassium 4.1 mEq/L (3.5-5.1)
[2018-03-01 09:21] LABS: Lymphocytes # 7.9 K/mcL (0.6-4.6); Monocytes # 2.9 K/mcL (0.0-1.3); Neutrophils # 15.2 K/mcL (1.6-8.9); Platelet Estimate Normal (Normal)
[2018-03-01 09:23] LABS: Anisocytosis 1+ (Not Present); Reactive Lymphocytes Present (Not Present)
[2018-03-01] MEDS: Ipratropium/Albuterol Neb 3 ML IH PRN (09:29)
[2018-03-01] MEDS: Budesonide/Formoterol 160/4.5 1 PUFF INH IH SCH ×2 (09:29→22:21)
[2018-03-01] MEDS: Baclofen 10 MG TABLET PO PRN (11:39)
[2018-03-01] MEDS: Sennosides 8.6 MG TABLET PO SCH (20:37)
--- NOTE | 2018-03-01 22:31 | Nephrology Progress Note ---
Date of Encounter: 03/01/18 - Assessment and Plan (1) LÁZARO (acute kidney injury) Current Visit: Yes Status: Acute Subjective Principal diagnosis: Pneumonia Interval history: Pt seen and examined on HD feeling better overall Objective - Vital Signs Vital signs: Vital Signs Temp Pulse Resp BP Pulse Ox 03/01/18 22:23 18 96 03/01/18 21:20 98.4 F 73 18 135/70 95 03/01/18 15:00 98.4 F 76 18 160/78 93 03/01/18 10:38 98.7 F 91 18 112/56 92 03/01/18 09:30 24 92 03/01/18 06:39 98.3 F 100 18 118/69 92 03/01/18 04:14 98.4 F 107 18 113/58 92 02/28/18 23:52 98.4 F 80 17 146/72 94 Intake and Output 03/01/18 03/01/18 03/01/18 07:59 15:59 23:59 Intake Total 100 / 100 220 / 220 Balance 100 / 100 220 / 220 Intake: IV Fluids 100 / 100 100 / 100 Zosyn 3.375 GM In 0.9 % Sodium 100 / 100 100 / 100 Chloride (Mini-Bag +) 100 ML @ 25 mls/hr IVPB Q8HR [facility] Rx#: [id number] Oral 120 / 120 Other: Meal Lunch Percent of Meal Consumed 0% Stool Size Small Stool Consistency liquid # Bowel Movements 1 - Lab 03/01/18 06:59 03/01/18 06:59 Most recent lab results Calcium 9.0 mg/dL (8.6-10.3) 03/01/18 06:59 Phosphorus 11.8 mg/dL (2.7-4.5) H 02/26/18 10:31 Magnesium 2.7 mg/dL (1.6-2.6) H 02/26/18 01:40 Urine Creatinine 72 mg/dL 02/27/18 08:30 Urine Sodium 41.6 mEq/L 02/27/18 08:30 Urine Total Protein 24 mg/dL (1-14) H 02/27/18 08:30 Consult Discharge Plan - Plan Referrals: [facility] [Primary Care Provider] -
[2018-03-02] MEDS: Piperacillin/Tazobactam 3.375 GM in 0.9 % Sodium Chloride Mini Bag 100 ML IVPB SCH ×3 (00:03→20:33)
[2018-03-02 04:22] LABS: Basophils % 0.2 %; Eosinophils # 0.1 K/mcL (0.0-0.6); Eosinophils % 0.3 %; Hematocrit 34.9 % (37.5-50.1); Immature Granulocytes % 11.5 % (0-4); Lymphocytes # 2.4 K/mcL (0.6-4.6); Lymphocytes % 12.8 %; Mean Corpuscular HGB Conc 32.1 g/dL (31.6-35.5); Mean Corpuscular Hemoglobin 29.9 pg (28.0-33.3); Mean Corpuscular Volume 93.3 fL (83.0-100.0); Mean Platelet Volume 11.2 fL (9.4-12.4); Monocytes # 1.5 K/mcL (0.0-1.3); Monocytes % 8.2 %; Neutrophils # 12.5 K/mcL (1.6-8.9); Platelet Count 188 K/mcL (140-400); Red Blood Count 3.74 M/mcL (4.19-5.50); Red Cell Distribution Width 18.4 % (11.5-14.5)
[2018-03-02 04:31] LABS: Hemoglobin 11.2 g/dL (12.9-16.9)
[2018-03-02 04:39] LABS: Calcium 8.5 mg/dL (8.6-10.3); Potassium 3.7 mEq/L (3.5-5.1)
[2018-03-02 05:00] LABS: Platelet Estimate Normal (Normal); Toxic Granulation Present (Not Present)
[2018-03-02] MEDS: *HR* Heparin 5,000 UNIT/ML VIAL SQ SCH ×2 (06:08→16:47)
[2018-03-02] MEDS: levoFLOXacin 500 MG TABLET PO SCH (06:08)
[2018-03-02] MEDS: Budesonide/Formoterol 160/4.5 1 PUFF INH IH SCH ×2 (08:04→21:56)
[2018-03-02] MEDS: Metoprolol XL (24 HR) Succ 50 MG TAB.ER.24H PO SCH (08:27)
[2018-03-02] MEDS: Cyanocobalamin (B-12) 1,000 MCG TABLET PO SCH (08:27)
[2018-03-02] MEDS: Aspirin Enteric Coated 325 MG Tablet PO SCH (08:28)
[2018-03-02] MEDS ORDERED: 0.9 % Sodium Chloride 250 ML IVC PRN (09:09)
[2018-03-02] MEDS ORDERED: *HR* Heparin 10,000 UNIT/10 ML VIAL IV PRN (09:20)
[2018-03-02] MEDS: *HR* OxyCODONE/APAP 5/325 TABLET PO PRN ×2 (09:46→20:34)
[2018-03-02] MEDS: Ondansetron ODT 4 MG TAB.RAPDIS PO PRN (09:47)
[2018-03-02] MEDS: 0.9 % Sodium Chloride 1,000 ML PRIME SCH (10:15)
[2018-03-02] MEDS ORDERED: 0.9 % Sodium Chloride 2,000 ML ONE (11:45)
--- NOTE | 2018-03-02 12:07 | Internal Med Progress Note ---
Hospitalist Progress Note - Encounter Date of Encounter: 03/02/18 Time of Encounter: 12:05 - Subjective Interval History: Mr. Madrid is a 67 year old male patient with a history of chronic kidney disease stage IV, hypertension, peripheral arterial disease who presented to the ER at the [facility] initially on Sunday with complaints of generalized weakness. He was evaluated in the ER and was noted to have worsening renal function. He was sent home at that time but did return to the ER with complaints of worsening symptoms. He did have decreased urine output. Also was having worsening swelling and some shortness of breath with exertion. He has also been having dark colored sputum and cough. He was admitted in the hospital for Pneumonia, COPD exacerbation and volume overload with LÁZARO on CKD-4. Pt started on HD through temporary HD cath. He did have significant urinary retention, placed the Ramires catheter today. Retroperitoneal ultrasound showed unremarkable kidneys however he does have significant distention of the urinary bladder with BPH. He states he is feeling better today. Denied any CP. No cough. He happened to have hypotension during dialysis also developed near syncopal episode - Exam Vitals: Temp Pulse Resp BP Pulse Ox 97.8 F 79 18 116/68 97 03/02/18 07:45 03/02/18 07:45 03/02/18 07:45 03/02/18 07:45 03/02/18 07:45 Exam: Gen: Alert, awake, Oriented to time,place and person Chest: Diminished breath sounds B/L, No wheezing, No crackles, No rales Heart: S1S2+ RRR No murmurs Abd: Soft, NT, BS +, No organomegaly Ext: 2+ edema, pulses are palpable, No calf tenderness Neuro : Benign findings Skin: No rash. - Assessment and Plan (1) Acute and chronic respiratory failure with hypoxia Current Visit: Yes Status: Acute Assessment and Plan: Likely secondary to pneumonia and volume overload. Improving. Still on 5 L nasal cannula oxygen. Continue Duoneb and empirical abx. HD as per Nephro recommendations. (2) Acute on chronic kidney failure Current Visit: Yes Status: Acute Assessment and Plan: Developed ESRD had temp HD cath now cont HD as per nephro recommendations will talk to Nephro about perm HD cath (3) Benign hypertension with chronic kidney disease, stage IV Current Visit: Yes Status: Chronic Assessment and Plan: Stable with current regimen (4) Urinary retention Current Visit: Yes Status: Acute Assessment and Plan: Due to BPH continue Flomax con Ramires catheter need to follow up with urology as an outpatient (5) Pneumonia Current Visit: Yes Status: Suspected Assessment and Plan: Suspect bacterial PNA Nasal MRSA screen positive. Respiratory virus panel was negative. CT chest showed increased ground glass opacity in CANDACE. Suspicious for low grade lung carcinoma. Overlying pneumonia also possible. Blood cultures are NGTD. Continue zosyn and Levaquin (day 5) will de-escalate into oral antibiotic in the morning if patient white count keep trending down (6) Hyperlipidemia Current Visit: Yes Status: Chronic Assessment and Plan: Continue statin (7) COPD (chronic obstructive pulmonary disease) Current Visit: Yes Status: Chronic Assessment and Plan: Presented with mild exacerbation improving Cont Duoneb and O2 D/C steroids - Time Spent with Patient Total time spent is greater than 50% in coordination of care (as documented) at patient's floor/unit and/or counseling patient: Internal Medicine: Result - Labs CBC & Chem 7: 03/02/18 03:45 03/02/18 03:45 Labs: Short CBC 03/02/18 Range/Units 03:45 WBC 18.7 H (4.3-11.1) K/mcL Hgb 11.2 L D (12.9-16.9) g/dL Hct 34.9 L (37.5-50.1) % Plt Count 188 (140-400) K/mcL Neutrophils # 12.5 H (1.6-8.9) K/mcL BMP 03/02/18 03:45 Sodium 138 Potassium 3.7 Chloride 97 L Carbon Dioxide 25 BUN 73 H Creatinine 7.07 H Glucose 87 Calcium 8.5 L - ABG Interpretation ABG results: PT/INR, D-dimer PT 12.8 Seconds (9.4-12.1) H 02/26/18 10:31 Consult Discharge Plan - Plan [facility]errals: [facility] [Primary Care Provider] - (2) Acute on chronic kidney failure Qualifiers: Acute renal failure type: unspecified Chronic kidney disease stage: stage 4 ( severe) Qualified Code(s): N17.9 - Acute kidney failure, unspecified; N18.4 - Chronic kidney disease, stage 4 (severe) (5) Pneumonia Qualifiers: Pneumonia type: due to methicillin-resistant Staphylococcus aureus (MRSA) Laterality: right Lung location: upper lobe of lung Qualified Code(s): J15.212 - Pneumonia due to Methicillin resistant Staphylococcus aureus (6) Hyperlipidemia Qualifiers: Hyperlipidemia type: mixed hyperlipidemia Qualified Code(s): E78.2 - Mixed hyperlipidemia (7) COPD (chronic obstructive pulmonary disease) Qualifiers: COPD type: emphysema Emphysema type: panlobular Qualified Code(s): J43.1 - Panlobular emphysema
--- NOTE | 2018-03-02 12:21 | Nephrology Progress Note ---
Date of Encounter: 03/02/18 Time of Encounter: 12:00 - Assessment and Plan (1) LÁZARO (acute kidney injury) Current Visit: Yes Status: Acute SCr still poor at 7.07, GFR 8, hence n signs of renal recovery. Continue HD with no UF today Lytes stable Continue to avoid nephrotoxins if possible UOP not documented in the past 24hrs (2) Acute and chronic respiratory failure with hypoxia Current Visit: Yes Status: Acute Improved with UF, likely the volume overload componenet Also treated for PNA by primary team. Treated also for COPD exacerbation (3) Urinary retention Current Visit: Yes Status: Acute Ramires in place, urology sign off with followup outpatient Subjective Principal diagnosis: Pneumonia Interval history: Pt seen and examined on HD feeling better today but had an episode of hypotension with near syncope with code called but back to baseline within mins Objective - Vital Signs Vital signs: Vital Signs Temp Pulse Resp BP Pulse Ox 03/02/18 12:00 136/56 03/02/18 11:45 142/61 03/02/18 11:30 139/56 03/02/18 11:15 89/50 03/02/18 11:00 100/55 03/02/18 10:45 114/60 03/02/18 10:30 97.6 F 18 133/63 03/02/18 07:45 97.8 F 79 18 116/68 97 03/02/18 04:28 97.8 F 83 18 112/62 91 03/02/18 00:01 97.9 F 96 18 108/69 90 03/01/18 22:23 18 96 03/01/18 21:20 98.4 F 73 18 135/70 95 03/01/18 15:00 98.4 F 76 18 160/78 93 Intake and Output 03/01/18 03/02/18 03/02/18 23:59 07:59 15:59 Intake Total 100 / 100 100 / 100 600 / 600 Balance 100 / 100 100 / 100 600 / 600 Intake: IV Fluids 100 / 100 100 / 100 Zosyn 3.375 GM In 0.9 % Sodium 100 / 100 100 / 100 Chloride (Mini-Bag +) 100 ML @ 25 mls/hr IVPB Q8HR [facility] Rx#: [id number] Oral 0 / 0 Intake, Rinseback and Flushes 600 / 600 Other: Weight 140.5 kg Hemodialysis Net Fluid Removed 764 (mL) Patient Weight 03/02/18 23:59 Weight 140.5 kg - General Appearance General appearance: Present: obese, chronically ill EENT: Present: ATNC, mucous membranes moist Neck: Present: no JVD, supple Additional Comments: good areation ant bilat Cardiology: Present: edema (trace, improved drastically), normal S1, normal S2 Dialysis Vascular Access: Venous Catheter (temp line) Gastrointestinal: Present: no tenderness, no guarding, obese Integumentary: Present: warm and dry Neurologic: Present: no focal deficit Musculoskeletal: Present: no deformities Psychiatric: Present: mood/affect appropriate - Lab 03/02/18 03:45 03/02/18 03:45 Most recent lab results Calcium 8.5 mg/dL (8.6-10.3) L 03/02/18 03:45 Phosphorus 11.8 mg/dL (2.7-4.5) H 02/26/18 10:31 Magnesium 2.7 mg/dL (1.6-2.6) H 02/26/18 01:40 Urine Creatinine 72 mg/dL 02/27/18 08:30 Urine Sodium 41.6 mEq/L 02/27/18 08:30 Urine Total Protein 24 mg/dL (1-14) H 02/27/18 08:30 Consult Discharge Plan - Plan Referrals: [facility] [Primary Care Provider] -
[2018-03-02] MEDS: Ipratropium/Albuterol Neb 3 ML IH PRN (15:58)
[2018-03-02] MEDS: Sennosides 8.6 MG TABLET PO SCH (20:34)
[2018-03-03 03:40] LABS: Hematocrit 32.9 % (37.5-50.1); Hemoglobin 10.5 g/dL (12.9-16.9); Mean Corpuscular HGB Conc 31.9 g/dL (31.6-35.5); Mean Platelet Volume 11.4 fL (9.4-12.4); Neutrophils # 11.3 K/mcL (1.6-8.9); Platelet Count 159 K/mcL (140-400); Red Cell Distribution Width 18.3 % (11.5-14.5)
[2018-03-03 04:08] LABS: Calcium 8.3 mg/dL (8.6-10.3); Potassium 3.7 mEq/L (3.5-5.1)
[2018-03-03 04:28] LABS: Lymphocytes # 5.3 K/mcL (0.6-4.6); Monocytes # 1.1 K/mcL (0.0-1.3); Platelet Estimate Normal (Normal); Reactive Lymphocytes Present (Not Present); Toxic Granulation Present (Not Present)
[2018-03-03] MEDS: *HR* OxyCODONE/APAP 5/325 TABLET PO PRN ×2 (05:14→17:12)
[2018-03-03] MEDS: Ondansetron ODT 4 MG TAB.RAPDIS PO PRN ×2 (05:14→17:11)
[2018-03-03] MEDS: *HR* Heparin 5,000 UNIT/ML VIAL SQ SCH ×2 (05:14→17:11)
[2018-03-03] MEDS: Budesonide/Formoterol 160/4.5 1 PUFF INH IH SCH ×2 (07:36→20:54)
[2018-03-03] MEDS: Ipratropium/Albuterol Neb 3 ML IH PRN (07:37)
[2018-03-03] MEDS: Cyanocobalamin (B-12) 1,000 MCG TABLET PO SCH (07:48)
[2018-03-03] MEDS: Metoprolol XL (24 HR) Succ 50 MG TAB.ER.24H PO SCH (07:48)
[2018-03-03] MEDS: Piperacillin/Tazobactam 3.375 GM in 0.9 % Sodium Chloride Mini Bag 100 ML IVPB SCH ×2 (07:49→20:45)
[2018-03-03] MEDS: Aspirin Enteric Coated 325 MG Tablet PO SCH (07:49)
--- NOTE | 2018-03-03 13:26 | Internal Med Progress Note ---
Hospitalist Progress Note - Encounter Date of Encounter: 03/03/18 Time of Encounter: 09:30 - Subjective Interval History: Mr. Madrid is a 67 year old male patient with a history of chronic kidney disease stage IV, hypertension, peripheral arterial disease who presented to the ER at the [facility] initially on Sunday with complaints of generalized weakness. He was evaluated in the ER and was noted to have worsening renal function. He was sent home at that time but did return to the ER with complaints of worsening symptoms. He did have decreased urine output. Also was having worsening swelling and some shortness of breath with exertion. He has also been having dark colored sputum and cough. He was admitted in the hospital for Pneumonia, COPD exacerbation and volume overload with LÁZARO on CKD-4. Pt started on HD through temporary HD cath. He did have significant urinary retention, placed the Ramires catheter today. Retroperitoneal ultrasound showed unremarkable kidneys however he does have significant distention of the urinary bladder with BPH. He states he is feeling better today. Denied any CP. No cough. BP is stable. - Exam Vitals: Temp Pulse Resp BP Pulse Ox 97.7 F 77 18 98/66 94 03/03/18 10:56 03/03/18 10:56 03/03/18 10:56 03/03/18 10:56 03/03/18 10:56 Exam: Gen: Alert, awake, Oriented to time,place and person Chest: Diminished breath sounds B/L, No wheezing, No crackles, No rales Heart: S1S2+ RRR No murmurs Abd: Soft, NT, BS +, No organomegaly Ext: 2+ edema, pulses are palpable, No calf tenderness Neuro : Benign findings Skin: No rash. - Assessment and Plan (1) Acute and chronic respiratory failure with hypoxia Current Visit: Yes Status: Acute Assessment and Plan: Likely secondary to pneumonia and volume overload. Improving Still on 5 L nasal cannula oxygen - which seems to be his baseline Continue Duoneb and empirical abx. HD as per Nephro recommendations. (2) Acute on chronic kidney failure Current Visit: Yes Status: Acute Assessment and Plan: Developed ESRD had temp HD cath now cont HD as per nephro recommendations will talk to Nephro about perm HD cath (3) Benign hypertension with chronic kidney disease, stage IV Current Visit: Yes Status: Chronic Assessment and Plan: Stable with current regimen (4) Urinary retention Current Visit: Yes Status: Acute Assessment and Plan: Due to BPH continue Flomax con Ramires catheter need to follow up with urology as an outpatient (5) Pneumonia Current Visit: Yes Status: Suspected Assessment and Plan: Suspect bacterial PNA Nasal MRSA screen positive. Respiratory virus panel was negative. CT chest showed increased ground glass opacity in CANDACE. Suspicious for low grade lung carcinoma. Overlying pneumonia also possible. Blood cultures are NGTD. Continue zosyn and Levaquin (day 6) will de-escalate into oral antibiotic in the morning if patient white count keep trending down (6) Hyperlipidemia Current Visit: Yes Status: Chronic Assessment and Plan: Continue statin (7) COPD (chronic obstructive pulmonary disease) Current Visit: Yes Status: Chronic Assessment and Plan: Presented with mild exacerbation improving Cont Duoneb and O2 D/C steroids - Time Spent with Patient Total time spent is greater than 50% in coordination of care (as documented) at patient's floor/unit and/or counseling patient: Internal Medicine: Result - Labs CBC & Chem 7: 03/03/18 03:15 03/03/18 03:15 Labs: Short CBC 03/03/18 Range/Units 03:15 WBC 17.6 H (4.3-11.1) K/mcL Hgb 10.5 L (12.9-16.9) g/dL Hct 32.9 L (37.5-50.1) % Plt Count 159 (140-400) K/mcL Neutrophils # 11.3 H (1.6-8.9) K/mcL BMP 03/03/18 03:15 Sodium 137 Potassium 3.7 Chloride 98 Carbon Dioxide 26 BUN 46 H Creatinine 5.45 H Glucose 86 Calcium 8.3 L - ABG Interpretation ABG results: PT/INR, D-dimer PT 12.8 Seconds (9.4-12.1) H 02/26/18 10:31 Consult Discharge Plan - Plan Referrals: [facility] [Primary Care Provider] - (2) Acute on chronic kidney failure Qualifiers: Acute renal failure type: unspecified Chronic kidney disease stage: stage 4 ( severe) Qualified Code(s): N17.9 - Acute kidney failure, unspecified; N18.4 - Chronic kidney disease, stage 4 (severe) (5) Pneumonia Qualifiers: Pneumonia type: due to methicillin-resistant Staphylococcus aureus (MRSA) Laterality: right Lung location: upper lobe of lung Qualified Code(s): J15.212 - Pneumonia due to Methicillin resistant Staphylococcus aureus (6) Hyperlipidemia Qualifiers: Hyperlipidemia type: mixed hyperlipidemia Qualified Code(s): E78.2 - Mixed hyperlipidemia (7) COPD (chronic obstructive pulmonary disease) Qualifiers: COPD type: emphysema Emphysema type: panlobular Qualified Code(s): J43.1 - Panlobular emphysema
--- NOTE | 2018-03-03 13:48 | Nephrology Progress Note ---
Date of Encounter: 03/03/18 Time of Encounter: 14:30 - Assessment and Plan (1) LÁZARO (acute kidney injury) Current Visit: Yes Status: Acute No signs of renal recovery so far, will plan for permcath soon and outpatient HD placement s/p HD yesterday No UOP documented, not sure if accurate Continue to avoid nephrotoxins if possible (2) Acute and chronic respiratory failure with hypoxia Current Visit: Yes Status: Acute Per pulm and primary team (3) Urinary retention Current Visit: Yes Status: Acute Ramires in place, urology signed off with followup outpatient Subjective Principal diagnosis: Pneumonia Interval history: Pt seen and examined with no new complaints. No overnight issues. Objective - Vital Signs Vital signs: Vital Signs Temp Pulse Resp BP Pulse Ox 03/03/18 10:56 97.7 F 77 18 98/66 94 03/03/18 07:37 18 96 03/03/18 06:52 97.8 F 77 18 143/74 96 03/03/18 00:06 98.2 F 64 18 121/67 97 03/02/18 21:56 18 95 03/02/18 20:34 95 03/02/18 20:25 97.5 F L 78 18 133/86 95 03/02/18 16:09 97.4 F L 88 18 134/76 92 03/02/18 16:00 20 90 03/02/18 14:19 97.4 F L 18 147/68 03/02/18 14:00 151/65 Intake and Output 03/02/18 03/03/18 03/03/18 23:59 07:59 15:59 Intake Total 100 / 100 100 / 100 Balance 100 / 100 100 / 100 Intake: IV Fluids 100 / 100 100 / 100 Zosyn 3.375 GM In 0.9 % Sodium 100 / 100 100 / 100 Chloride (Mini-Bag +) 100 ML @ 25 mls/hr IVPB Q12H [facility] Rx#: [id number] Other: Weight 140 kg Patient Weight 03/03/18 23:59 Weight 140 kg - General Appearance General appearance: Present: obese, chronically ill EENT: Present: ATNC, mucous membranes moist Neck: Present: no JVD, supple Additional Comments: good areation ant bilat Cardiology: Present: edema (trace, improved), normal S1, normal S2 Gastrointestinal: Present: no tenderness, no guarding, obese Integumentary: Present: warm and dry Neurologic: Present: no focal deficit Musculoskeletal: Present: no deformities Psychiatric: Present: mood/affect appropriate, cooperative - Lab 03/03/18 03:15 03/03/18 03:15 Most recent lab results Calcium 8.3 mg/dL (8.6-10.3) L 03/03/18 03:15 Phosphorus 11.8 mg/dL (2.7-4.5) H 02/26/18 10:31 Magnesium 2.7 mg/dL (1.6-2.6) H 02/26/18 01:40 Urine Creatinine 72 mg/dL 02/27/18 08:30 Urine Sodium 41.6 mEq/L 02/27/18 08:30 Urine Total Protein 24 mg/dL (1-14) H 02/27/18 08:30 Consult Discharge Plan - Plan Referrals: [facility] [Primary Care Provider] -
[2018-03-03] MEDS: Sennosides 8.6 MG TABLET PO SCH (20:45)
[2018-03-04 03:42] LABS: Basophils # 0.1 K/mcL (0.0-0.2); Basophils % 0.4 %; Eosinophils # 0.3 K/mcL (0.0-0.6); Eosinophils % 1.7 %; Hematocrit 32.5 % (37.5-50.1); Hemoglobin 10.3 g/dL (12.9-16.9); Immature Granulocytes % 10.3 % (0-4); Lymphocytes # 2.6 K/mcL (0.6-4.6); Lymphocytes % 13.5 %; Mean Corpuscular HGB Conc 31.7 g/dL (31.6-35.5); Mean Corpuscular Hemoglobin 29.9 pg (28.0-33.3); Mean Corpuscular Volume 94.2 fL (83.0-100.0); Monocytes # 1.4 K/mcL (0.0-1.3); Monocytes % 7.4 %; Neutrophils # 12.9 K/mcL (1.6-8.9); Platelet Count 159 K/mcL (140-400); Red Blood Count 3.45 M/mcL (4.19-5.50); Red Cell Distribution Width 18.2 % (11.5-14.5); Segmented Neutrophils % 66.7 %
[2018-03-04 04:08] LABS: Calcium 8.4 mg/dL (8.6-10.3); Platelet Estimate Normal (Normal); Potassium 3.6 mEq/L (3.5-5.1); Reactive Lymphocytes Present (Not Present); Toxic Granulation Present (Not Present)
[2018-03-04] MEDS: *HR* Heparin 5,000 UNIT/ML VIAL SQ SCH ×2 (05:19→18:59)
[2018-03-04] MEDS: Budesonide/Formoterol 160/4.5 1 PUFF INH IH SCH ×2 (07:31→19:38)
[2018-03-04] MEDS: Ipratropium/Albuterol Neb 3 ML IH PRN ×3 (07:32→19:38)
--- NOTE | 2018-03-04 09:09 | Internal Med Progress Note ---
<Luna Hinojosa - Last Filed: 03/04/18 13:07> Hospitalist Progress Note - Encounter Date of Encounter: 03/04/18 Time of Encounter: 08:45 - Subjective Interval History: Patient seen and examined. No acute events overnight. The patient is sitting comfortably in bed. He states he feels dizzy. States it started 10 minutes when he got up from bed. Denies nausea. States that hes had dizziness for few years. Otherwise, states hes overall better. Reports that swelling is improved. Denies chest pain and shortness of breath. Denies fever/chills. Denies abdominal pain, constipation/diarrhea. Patient went down to IR today for PermaCath placement. However, was not done due to elevated WBC. - Exam Vitals: Temp Pulse Resp BP Pulse Ox 98.1 F 80 18 130/56 95 03/04/18 06:23 03/04/18 06:23 03/04/18 07:34 03/04/18 06:23 03/04/18 07:34 Exam: General: Morbidly obese. Alert and oriented x3. No acute distress. Head: atraumatic, normocephalic. 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 Eye: pupils equal and round. Sclera anicteric. EOMI. Mouth: oral mucosa moist. Normal oropharynx. Neck: supple. Trachea midline. Lungs: CTAB. No rhonchi, rales, or wheezing. No respiratory distress. No accessory muscle use. Cardiovascular: Normal S1 & S2. No rubs or gallops. No JVD. Pulse regular. Abdomen: Morbidly obese. Normal bowel sounds. Mild diffuse tenderness to palpation. No rigidity, no rebound. Extremities: 1+ pitting edema in left lower extremity. No edema in RLE. Venous stasis changes. No tenderness. No joint swelling or clubbing. Skin: warm, dry, and intact. - Assessment and Plan (1) Acute on chronic kidney failure Current Visit: Yes Status: Acute Assessment and Plan: Developed ESRD Temporary cath with hemodialysis. No improvement of renal function. Permacath and outpatient HD recommended, per Nephrology. (2) Pneumonia Current Visit: Yes Status: Suspected Assessment and Plan: Suspect bacterial PNA Nasal MRSA screen positive. Respiratory virus panel was negative. CT chest showed increased ground glass opacity in CANDACE. Suspicious for low grade lung carcinoma. Overlying pneumonia also possible. Blood cultures are NGTD. Continue zosyn and Levaquin (day 7) Will de-escalate into oral antibiotic in the morning if patient white count keep trending down. (3) Urinary retention Current Visit: Yes Status: Acute Assessment and Plan: Likely secondary to BPH. Continue Flomax. Continue Ramires catheter. Need to follow up with urology as an outpatient. (4) COPD (chronic obstructive pulmonary disease) Current Visit: Yes Status: Chronic Assessment and Plan: Presented with mild exacerbation Improving Cont Duoneb and O2 Steroids discontinued. (5) Benign hypertension with chronic kidney disease, stage IV Current Visit: Yes Status: Chronic Assessment and Plan: Stable with current regimen (6) Hyperlipidemia Current Visit: Yes Status: Chronic Assessment and Plan: Continue statin (7) Acute and chronic respiratory failure with hypoxia Current Visit: Yes Status: Acute Assessment and Plan: Likely secondary to pneumonia and volume overload. Improving. Still on 5 L nasal cannula oxygen - which seems to be his baseline. Continue Duoneb and empirical abx. HD as per Nephro recommendations. DVT Prophylaxis: Heparin subQ - Time Spent with Patient Total time spent is greater than 50% in coordination of care (as documented) at patient's floor/unit and/or counseling patient: Internal Medicine: Result - Labs CBC & Chem 7: 03/04/18 03:23 03/04/18 03:23 Labs: Short CBC 03/04/18 Range/Units 03:23 WBC 19.4 H (4.3-11.1) K/mcL Hgb 10.3 L (12.9-16.9) g/dL Hct 32.5 L (37.5-50.1) % Plt Count 159 (140-400) K/mcL Neutrophils # 12.9 H (1.6-8.9) K/mcL BMP 03/04/18 03:23 Sodium 136 Potassium 3.6 Chloride 97 L Carbon Dioxide 25 BUN 57 H Creatinine 6.97 H Glucose 87 Calcium 8.4 L - ABG Interpretation ABG results: PT/INR, D-dimer PT 12.8 Seconds (9.4-12.1) H 02/26/18 10:31 Consult Discharge Plan - Plan Referrals: [facility] [Primary Care Provider] - <Pam Santiago - Last Filed: 03/04/18 17:33> Hospitalist Progress Note - Encounter Date of Encounter: 03/04/18 - Exam Vitals: Temp Pulse Resp BP Pulse Ox 98.1 F 78 18 124/71 95 03/04/18 15:47 03/04/18 15:47 03/04/18 15:47 03/04/18 15:47 03/04/18 15:47 - Assessment and Plan (1) Acute on chronic kidney failure Current Visit: Yes Status: Acute (2) Benign hypertension with chronic kidney disease, stage IV Current Visit: Yes Status: Chronic (3) Urinary retention Current Visit: Yes Status: Acute (4) Pneumonia Current Visit: Yes Status: Suspected (5) Hyperlipidemia Current Visit: Yes Status: Chronic (6) COPD (chronic obstructive pulmonary disease) Current Visit: Yes Status: Chronic (7) Acute and chronic respiratory failure with hypoxia Current Visit: Yes Status: Acute - Time Spent with Patient Total time spent is greater than 50% in coordination of care (as documented) at patient's floor/unit and/or counseling patient: Internal Medicine: Result - Labs CBC & Chem 7: 03/04/18 03:23 03/04/18 03:23 Labs: Short CBC 03/04/18 Range/Units 03:23 WBC 19.4 H (4.3-11.1) K/mcL Hgb 10.3 L (12.9-16.9) g/dL Hct 32.5 L (37.5-50.1) % Plt Count 159 (140-400) K/mcL Neutrophils # 12.9 H (1.6-8.9) K/mcL BMP 03/04/18 03:23 Sodium 136 Potassium 3.6 Chloride 97 L Carbon Dioxide 25 BUN 57 H Creatinine 6.97 H Glucose 87 Calcium 8.4 L - ABG Interpretation ABG results: PT/INR, D-dimer PT 12.8 Seconds (9.4-12.1) H 02/26/18 10:31 - Attending Attestation I examined this patient and my medical decision-making was reviewed with the Resident Physician Dr. Hinojosa. I agree with the documented findings, disposition and treatment plan as described except to the extent set forth below. Mr. Madrid is a 67 year old male patient with a history of chronic kidney disease stage IV, hypertension, peripheral arterial disease who presented to the ER at the [facility] initially on Sunday with complaints of generalized weakness. He was evaluated in the ER and was noted to have worsening renal function. He was sent home at that time but did return to the ER with complaints of worsening symptoms. He did have decreased urine output. Also was having worsening swelling and some shortness of breath with exertion. He has also been having dark colored sputum and cough. He was admitted in the hospital for Pneumonia, COPD exacerbation and volume overload with LÁZARO on CKD-4. Pt started on HD through temporary HD cath. He states he is feeling better today. Denied any CP. No cough. He did have significant urinary retention, placed the Ramires catheter today. Retroperitoneal ultrasound showed unremarkable kidneys however he does have significant distention of the urinary bladder with BPH. He had some light headedness and dizzy spell this morning Gen: A, A, O x 3 Chest: Diminished BS b/l, No crackles, No rales Heart: S1S2+ RRR No murmurs Ext: edema + 1. Acute on chronic hypoxic respiratory failure improving 2. Acute pneumonia mostly bacterial continue broad-spectrum antibiotic WBC started trending down slowly clinically pt seems to be doing better cont close monitoring 3. Acute on CKD - IV cont HD as per Nephro recommendations unable to put perm HD cath today due to elevated WBC will talk to IR in AM, all his cx were negative and clinically pt does not look septic 4. urinary retention Ramires placed..Out pt f/u with urology On Flomax Appreciate Urology recommendations <Luna Hinojosa - Last Filed: 03/04/18 13:07> (1) Acute on chronic kidney failure Qualifiers: Acute renal failure type: unspecified Chronic kidney disease stage: stage 4 ( severe) Qualified Code(s): N17.9 - Acute kidney failure, unspecified; N18.4 - Chronic kidney disease, stage 4 (severe) (2) Pneumonia Qualifiers: Pneumonia type: due to methicillin-resistant Staphylococcus aureus (MRSA) Laterality: right Lung location: upper lobe of lung Qualified Code(s): J15.212 - Pneumonia due to Methicillin resistant Staphylococcus aureus (4) COPD (chronic obstructive pulmonary disease) Qualifiers: COPD type: emphysema Emphysema type: panlobular Qualified Code(s): J43.1 - Panlobular emphysema (6) Hyperlipidemia Qualifiers: Hyperlipidemia type: mixed hyperlipidemia Qualified Code(s): E78.2 - Mixed hyperlipidemia <Pam Santiago - Last Filed: 03/04/18 17:33> (1) Acute on chronic kidney failure Qualifiers: Acute renal failure type: unspecified Chronic kidney disease stage: stage 4 ( severe) Qualified Code(s): N17.9 - Acute kidney failure, unspecified; N18.4 - Chronic kidney disease, stage 4 (severe) (4) Pneumonia Qualifiers: Pneumonia type: due to methicillin-resistant Staphylococcus aureus (MRSA) Laterality: right Lung location: upper lobe of lung Qualified Code(s): J15.212 - Pneumonia due to Methicillin resistant Staphylococcus aureus (5) Hyperlipidemia Qualifiers: Hyperlipidemia type: mixed hyperlipidemia Qualified Code(s): E78.2 - Mixed hyperlipidemia (6) COPD (chronic obstructive pulmonary disease) Qualifiers: COPD type: emphysema Emphysema type: panlobular Qualified Code(s): J43.1 - Panlobular emphysema
[2018-03-04] MEDS: levoFLOXacin 500 MG TABLET PO SCH (09:18)
[2018-03-04] MEDS: Cyanocobalamin (B-12) 1,000 MCG TABLET PO SCH (09:19)
[2018-03-04] MEDS: Piperacillin/Tazobactam 3.375 GM in 0.9 % Sodium Chloride Mini Bag 100 ML IVPB SCH ×3 (09:19→18:59)
[2018-03-04] MEDS: Metoprolol XL (24 HR) Succ 50 MG TAB.ER.24H PO SCH (09:19)
[2018-03-04] MEDS: Aspirin Enteric Coated 325 MG Tablet PO SCH (09:19)
[2018-03-04] MEDS: *HR* OxyCODONE/APAP 5/325 TABLET PO PRN ×2 (09:25→21:41)
[2018-03-04] MEDS: Ondansetron ODT 4 MG TAB.RAPDIS PO PRN (09:25)
--- NOTE | 2018-03-04 09:53 | Nephrology Progress Note ---
<Nini Paz - Last Filed: 03/04/18 15:14> Date of Encounter: 03/04/18 Time of Encounter: 09:49 - Assessment and Plan (1) LÁZARO (acute kidney injury) Current Visit: Yes Status: Acute No signs of renal recovery so far, permacath was ordered for today however IR recommended to wait due to WBC of 19.4. NPO order for tonight at midnight for permacath placement tomorrrow. 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 Continue to avoid nephrotoxins if possible. Social Service place for outpatient HD chair time. (2) Urinary retention Current Visit: Yes Status: Acute Ramires in place, urology signed off with followup outpatient. (3) Acute and chronic respiratory failure with hypoxia Current Visit: Yes Status: Acute Per pulm and primary team Subjective Principal diagnosis: Pneumonia Interval history: Pt seen and examined. Admits to nausea without vomiting. Admits to shortness of breath without chest pain. Objective - Vital Signs Vital signs: Vital Signs Temp Pulse Resp BP Pulse Ox 03/04/18 07:34 18 95 03/04/18 06:23 98.1 F 80 18 130/56 96 03/04/18 05:16 98.1 F 83 83 115/66 91 03/04/18 01:32 98 F 87 17 137/78 95 03/03/18 20:54 16 91 03/03/18 20:46 96 03/03/18 20:44 97.8 F 81 16 126/71 96 03/03/18 15:08 97.9 F 71 18 126/70 95 03/03/18 10:56 97.7 F 77 18 98/66 94 Intake and Output 03/03/18 03/04/18 03/04/18 23:59 07:59 15:59 Intake Total 100 / 100 100 / 100 Output Total 400 / 400 Balance -300 / -300 100 / 100 Intake: IV Fluids 100 / 100 Zosyn 3.375 GM In 0.9 % Sodium 100 / 100 Chloride (Mini-Bag +) 100 ML @ 25 mls/hr IVPB Q12H [facility] Rx#: [id number] Oral 100 / 100 Output: Urine 400 / 400 Other: Stool Size Copious Stool Consistency soft Stool Color Brown Weight 140.5 kg Patient Weight 03/04/18 23:59 Weight 140.5 kg - General Appearance General appearance: Present: well-developed, well-nourished, obese EENT: Present: ATNC, hearing intact, vision intact Neck: Present: supple Respiratory: Present: clear Cardiology: Present: edema (+1 pitting edema, appears chronic. ), normal S1, normal S2 Dialysis Vascular Access: Venous Catheter (Temp line, drsg c/d/i) Gastrointestinal: Present: normoactive bowel sounds, no tenderness, no guarding Integumentary: Present: no rash, warm and dry Neurologic: Present: alert and oriented x3 Psychiatric: Present: mood/affect appropriate, cooperative - Lab 03/04/18 03:23 03/04/18 03:23 Most recent lab results Calcium 8.4 mg/dL (8.6-10.3) L 03/04/18 03:23 Phosphorus 11.8 mg/dL (2.7-4.5) H 02/26/18 10:31 Magnesium 2.7 mg/dL (1.6-2.6) H 02/26/18 01:40 Urine Creatinine 72 mg/dL 02/27/18 08:30 Urine Sodium 41.6 mEq/L 02/27/18 08:30 Urine Total Protein 24 mg/dL (1-14) H 02/27/18 08:30 Consult Discharge Plan - Plan [facility]errals: [facility] Care Provider[facility] - <lLoyd Patel - Last Filed: 03/04/18 20:07> Date of Encounter: 03/04/18 - Assessment and Plan (1) LÁZARO (acute kidney injury) Current Visit: Yes Status: Acute I would like to insert state Quick Test for NETWORK OPERATIONS LEAD supervision, and I saw, interviewed, examined the pt earlier today. He has LÁZARO on CKD IV-V (not previously on chronic dialysis) and was followed by Michael's former group. He presented with PNA and I discussed his care with the hospitalist. I reviewed the labs, vitals, imaging, progress notes and med list. His elevated WBC is actually overall trending better and is associated with his PNA. He is not septic nor presumed bactermic. I recommend planning or a Permacath placement tomorrow. 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 He last dialyzed on Sunday, and so with worsening renal function noted today, he has likely progressed to ESRD. (2) Leukocytosis Current Visit: Yes Status: Acute See above. Qualifiers: Leukocytosis type: bandemia Qualified Code(s): D72.825 - Bandemia (3) CKD (chronic kidney disease), stage V Current Visit: Yes Status: Chronic I found eGFR from 2016 in the Stage V range. So I suspect his is his baseline. (4) Urinary retention Current Visit: Yes Status: Acute (5) Acute and chronic respiratory failure with hypoxia Current Visit: Yes Status: Acute per primary. Objective - Vital Signs Vital signs: Vital Signs Temp Pulse Resp BP Pulse Ox 03/04/18 15:47 98.1 F 78 18 124/71 95 03/04/18 13:35 20 90 03/04/18 10:39 97.6 F 82 18 98/45 96 03/04/18 07:34 18 95 03/04/18 06:23 98.1 F 80 18 130/56 96 03/04/18 05:16 98.1 F 83 83 115/66 91 03/04/18 01:32 98 F 87 17 137/78 95 03/03/18 20:54 16 91 03/03/18 20:46 96 03/03/18 20:44 97.8 F 81 16 126/71 96 Intake and Output 03/04/18 03/04/18 03/04/18 07:59 15:59 23:59 Intake Total 100 / 100 340 / 340 Output Total 400 / 400 Balance -300 / -300 340 / 340 Intake: IV Fluids 100 / 100 Zosyn 3.375 GM In 0.9 % Sodium 100 / 100 Chloride (Mini-Bag +) 100 ML @ 25 mls/hr IVPB Q12H [facility] Rx#: [id number] Oral 340 / 340 Output: Urine 400 / 400 Other: Meal Breakfast Percent of Meal Consumed 100% Stool Size Small Stool Color Brown # Bowel Movements 1 Weight 140.5 kg Patient Weight 03/04/18 23:59 Weight 140.5 kg - Lab 03/04/18 03:23 03/04/18 03:23 Most recent lab results Calcium 8.4 mg/dL (8.6-10.3) L 03/04/18 03:23 Phosphorus 11.8 mg/dL (2.7-4.5) H 02/26/18 10:31 Magnesium 2.7 mg/dL (1.6-2.6) H 02/26/18 01:40 Urine Creatinine 72 mg/dL 02/27/18 08:30 Urine Sodium 41.6 mEq/L 02/27/18 08:30 Urine Total Protein 24 mg/dL (1-14) H 02/27/18 08:30
[2018-03-04] MEDS: Sennosides 8.6 MG TABLET PO SCH (21:41)
[2018-03-05] MEDS: *HR* Heparin 5,000 UNIT/ML VIAL SQ SCH ×2 (05:56→17:23)
[2018-03-05] MEDS: Piperacillin/Tazobactam 3.375 GM in 0.9 % Sodium Chloride Mini Bag 100 ML IVPB SCH ×2 (05:57→17:22)
[2018-03-05 06:27] LABS: Eosinophils # 0.3 K/mcL (0.0-0.6); Hematocrit 30.6 % (37.5-50.1); Hemoglobin 9.9 g/dL (12.9-16.9); Mean Corpuscular HGB Conc 32.4 g/dL (31.6-35.5); Mean Corpuscular Hemoglobin 30.1 pg (28.0-33.3); Mean Platelet Volume 11.3 fL (9.4-12.4); Platelet Count 155 K/mcL (140-400); Red Blood Count 3.29 M/mcL (4.19-5.50); Red Cell Distribution Width 18.1 % (11.5-14.5)
[2018-03-05 06:44] LABS: Calcium 8.3 mg/dL (8.6-10.3)
[2018-03-05] MEDS ORDERED: 0.9 % Sodium Chloride 250 ML IVC PRN (06:51)
[2018-03-05 06:55] LABS: Lymphocytes # 1.3 K/mcL (0.6-4.6); Neutrophils # 14.9 K/mcL (1.6-8.9); Platelet Estimate Normal (Normal)
[2018-03-05] MEDS: Ipratropium/Albuterol Neb 3 ML IH PRN ×2 (07:42→20:52)
[2018-03-05] MEDS: Budesonide/Formoterol 160/4.5 1 PUFF INH IH SCH ×2 (07:42→20:52)
--- NOTE | 2018-03-05 08:02 | Internal Med Progress Note ---
<Luna Hinojosa - Last Filed: 03/05/18 13:27> Hospitalist Progress Note - Encounter Date of Encounter: 03/05/18 Time of Encounter: 07:30 - Subjective Interval History: Patient seen and examined. No acute events overnight. The patient is sleeping comfortably in bed. He states hes pretty good. Denies any complaints at this time. Denies chest pain and shortness of breath. Denies fever/chills. Denies nausea/vomiting, abdominal pain, constipation/diarrhea. - Exam Vitals: Temp Pulse Resp BP Pulse Ox 98.2 F 77 18 146/73 94 03/05/18 07:42 03/05/18 07:42 03/05/18 07:45 03/05/18 07:42 03/05/18 07:45 Exam: General: Morbidly obese. Alert and oriented x3. No acute distress. Head: atraumatic, normocephalic. 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 Eye: pupils equal and round. Sclera anicteric. EOMI. Mouth: oral mucosa moist. Normal oropharynx. Neck: supple. Trachea midline. Lungs: CTAB. No rhonchi, rales, or wheezing. No respiratory distress. No accessory muscle use. Cardiovascular: Normal S1 & S2. No rubs or gallops. No JVD. Pulse regular. Abdomen: Morbidly obese. Normal bowel sounds. Nontender. No rigidity, no rebound. Extremities: 2+ pitting edema in left lower extremity. 1+ pitting edema in RLE. Venous stasis changes. Erythema on RLE. No tenderness. No joint swelling or clubbing. Skin: warm, dry, and intact. - Assessment and Plan (1) Acute on chronic kidney failure Current Visit: Yes Status: Acute Assessment and Plan: Developed ESRD. Temporary cath with hemodialysis. No improvement of renal function. Permacath placed today for outpatient HD. Nephrology following. (2) Pneumonia Current Visit: Yes Status: Suspected Assessment and Plan: Suspect bacterial PNA. Nasal MRSA screen positive. Respiratory virus panel was negative. CT chest showed increased ground glass opacity in CANDACE. Suspicious for low grade lung carcinoma. Overlying pneumonia also possible. Blood cultures are negative. Continue zosyn and Levaquin (day 8) Will de-escalate into oral antibiotic if patient white count keep trending down. (3) Urinary retention Current Visit: Yes Status: Acute Assessment and Plan: Likely secondary to BPH. Continue Flomax. Continue Ramires catheter. Need to follow up with urology as an outpatient for voiding trial. (4) COPD (chronic obstructive pulmonary disease) Current Visit: Yes Status: Chronic Assessment and Plan: Presented with mild exacerbation Improving Cont Duoneb and O2. Steroids discontinued. (5) Benign hypertension with chronic kidney disease, stage IV Current Visit: Yes Status: Chronic Assessment and Plan: Stable with current regimen (6) Hyperlipidemia Current Visit: Yes Status: Chronic Assessment and Plan: Continue statin (7) Acute and chronic respiratory failure with hypoxia Current Visit: Yes Status: Acute Assessment and Plan: Likely secondary to pneumonia and volume overload. Improving. Still on 5 L nasal cannula oxygen - which seems to be his baseline. Continue Duoneb and empirical abx. HD as per Nephro recommendations. DVT Prophylaxis: Heparin subQ - Time Spent with Patient Total time spent is greater than 50% in coordination of care (as documented) at patient's floor/unit and/or counseling patient: Internal Medicine: Result - Labs CBC & Chem 7: 03/05/18 04:00 03/05/18 04:00 Labs: Short CBC 03/05/18 Range/Units 04:00 WBC 16.6 H (4.3-11.1) K/mcL Hgb 9.9 L (12.9-16.9) g/dL Hct 30.6 L (37.5-50.1) % Plt Count 155 (140-400) K/mcL Neutrophils # 14.9 H (1.6-8.9) K/mcL BMP 03/05/18 04:00 Sodium 136 Potassium 4.0 Chloride 98 Carbon Dioxide 22 L BUN 71 H Creatinine 8.18 H Glucose 91 Calcium 8.3 L - ABG Interpretation ABG results: PT/INR, D-dimer PT 12.8 Seconds (9.4-12.1) H 02/26/18 10:31 Consult Discharge Plan - Plan [facility]errals: [facility] [Primary Care Provider] - <Halle Chao - Last Filed: 03/05/18 14:17> Hospitalist Progress Note - Encounter Date of Encounter: 03/05/18 - Exam Vitals: Temp Pulse Resp BP Pulse Ox 98.0 F 76 16 108/70 98 03/05/18 11:11 03/05/18 11:11 03/05/18 11:11 03/05/18 11:11 03/05/18 11:11 - Assessment and Plan (1) Acute on chronic kidney failure Current Visit: Yes Status: Acute (2) Benign hypertension with chronic kidney disease, stage IV Current Visit: Yes Status: Chronic (3) Urinary retention Current Visit: Yes Status: Acute (4) Pneumonia Current Visit: Yes Status: Suspected (5) Hyperlipidemia Current Visit: Yes Status: Chronic (6) COPD (chronic obstructive pulmonary disease) Current Visit: Yes Status: Chronic (7) Acute and chronic respiratory failure with hypoxia Current Visit: Yes Status: Acute - Time Spent with Patient Total time spent is greater than 50% in coordination of care (as documented) at patient's floor/unit and/or counseling patient: Internal Medicine: Result - Labs CBC & Chem 7: 03/05/18 04:00 03/05/18 04:00 Labs: Short CBC 03/05/18 Range/Units 04:00 WBC 16.6 H (4.3-11.1) K/mcL Hgb 9.9 L (12.9-16.9) g/dL Hct 30.6 L (37.5-50.1) % Plt Count 155 (140-400) K/mcL Neutrophils # 14.9 H (1.6-8.9) K/mcL BMP 03/05/18 04:00 Sodium 136 Potassium 4.0 Chloride 98 Carbon Dioxide 22 L BUN 71 H Creatinine 8.18 H Glucose 91 Calcium 8.3 L - ABG Interpretation ABG results: PT/INR, D-dimer PT 12.8 Seconds (9.4-12.1) H 02/26/18 10:31 - Attending Attestation Seen and assessed.Being managed for: 1. Acute on CKD stage 4 now on dialysis. Permacath placed today and on dialysis 2. Pneumonia. Improving. Descalate antibiotics Agree with plan per resident <Luna Hinojosa - Last Filed: 03/05/18 13:27> (1) Acute on chronic kidney failure Qualifiers: Acute renal failure type: unspecified Chronic kidney disease stage: stage 4 ( severe) Qualified Code(s): N17.9 - Acute kidney failure, unspecified; N18.4 - Chronic kidney disease, stage 4 (severe) (2) Pneumonia Qualifiers: Pneumonia type: due to methicillin-resistant Staphylococcus aureus (MRSA) Laterality: right Lung location: upper lobe of lung Qualified Code(s): J15.212 - Pneumonia due to Methicillin resistant Staphylococcus aureus (4) COPD (chronic obstructive pulmonary disease) Qualifiers: COPD type: emphysema Emphysema type: panlobular Qualified Code(s): J43.1 - Panlobular emphysema (6) Hyperlipidemia Qualifiers: Hyperlipidemia type: mixed hyperlipidemia Qualified Code(s): E78.2 - Mixed hyperlipidemia <Halle Chao - Last Filed: 03/05/18 14:17> (1) Acute on chronic kidney failure Qualifiers: Acute renal failure type: unspecified Chronic kidney disease stage: stage 4 ( severe) Qualified Code(s): N17.9 - Acute kidney failure, unspecified; N18.4 - Chronic kidney disease, stage 4 (severe) (4) Pneumonia Qualifiers: Pneumonia type: due to methicillin-resistant Staphylococcus aureus (MRSA) Laterality: right Lung location: upper lobe of lung Qualified Code(s): J15.212 - Pneumonia due to Methicillin resistant Staphylococcus aureus (5) Hyperlipidemia Qualifiers: Hyperlipidemia type: mixed hyperlipidemia Qualified Code(s): E78.2 - Mixed hyperlipidemia (6) COPD (chronic obstructive pulmonary disease) Qualifiers: COPD type: emphysema Emphysema type: panlobular Qualified Code(s): J43.1 - Panlobular emphysema
[2018-03-05] MEDS ORDERED: Heparin 1,000 UNITS/500 mL 500 ML ONE (08:34)
[2018-03-05] MEDS ORDERED: ceFAZolin 2,000 MG in Water for inj. (sterile) 20 ML 10 ML IVP ONE (08:38)
[2018-03-05] MEDS ORDERED: *HR* FentaNYL (PF) 100 MCG/2 ML VIAL IVP ONE (08:39)
[2018-03-05] MEDS ORDERED: *HR* Midazolam HCl 2 MG/2 ML VIAL IVP ONE (08:39)
[2018-03-05] MEDS ORDERED: 0.9 % Sodium Chloride 500 ML ONE (08:59)
[2018-03-05] MEDS ORDERED: *HR* Heparin 5,000 UNIT/ML VIAL ONE (09:13)
--- NOTE | 2018-03-05 09:29 | Pre-Sedation Evaluation ---
Pre-sedation evaluation - Pre-sedation checklist Date of procedure: 03/05/18 Procedure: permacath Recent Vitals: Last Vital Signs Temp 98.2 F 03/05/18 07:42 Pulse 89 03/05/18 09:11 Resp 14 03/05/18 09:11 BP 127/63 03/05/18 09:11 Pulse Ox 95 03/05/18 09:11 H&P (including ROS) documented in medical record: Yes Previous reaction to sedatives/anesthetics: No Dietary Status: NPO after Midnight Dentition: No loose teeth or bridges ASA Classification *see protocol: CLASS II-Mild systemic disease Plan of Care: Pt appropriate candidate for procedure/moderate/conscious sedation , Risks/benefits of procedure/sedation discussed w/ patient/family Cardiac Registry (Cardio Only) - Functional Capacity - Clincal Frailty Scale
--- NOTE | 2018-03-05 09:30 | IR Procedure Note ---
Date of procedure: 03/05/18 Consent Obtained: Written consent Timeout: Correct patient and procedure verified, Time out performed, Skin prep completed Local anesthetic: Lidocaine 1% Indications: CRF Procedure Performed: Permacath placement Was there an automobile mechanic assistant present: No Results/Findings: RIJ permacath placement Estimated blood loss (cc): 0 Complications: None; Tolerated procedure well Post Procedure Treatment Plan: Monitor on floor Specimen: None
[2018-03-05] MEDS ORDERED: CeFAZolin Premix DUPLEX 2,000 MG/50 ML BAG IVPB ONE (10:00)
[2018-03-05] MEDS: *HR* OxyCODONE/APAP 5/325 TABLET PO PRN ×2 (10:09→20:06)
[2018-03-05] MEDS: Aspirin Enteric Coated 325 MG Tablet PO SCH (10:09)
[2018-03-05] MEDS: Cyanocobalamin (B-12) 1,000 MCG TABLET PO SCH (10:09)
[2018-03-05] MEDS: Metoprolol XL (24 HR) Succ 50 MG TAB.ER.24H PO SCH (10:09)
--- NOTE | 2018-03-05 10:20 | Nephrology Progress Note ---
Date of Encounter: 03/05/18 Time of Encounter: 10:16 - Assessment and Plan (1) LÁZARO (acute kidney injury) Current Visit: Yes Status: Acute Permacath placed today. Social Service consult placed for outpatient HD chair time. Uop 400 yesterday and 600 already today. Will watch for signs of renal recovery. (2) Urinary retention Current Visit: Yes Status: Acute Spann in place, urology signed off with followup outpatient. Last urology note states to leave spann in and have patient go to office for voiding trial. (3) Acute and chronic respiratory failure with hypoxia Current Visit: Yes Status: Acute per primary. (4) Leukocytosis Current Visit: Yes Status: Acute Trending better at 16.6. Qualifiers: Leukocytosis type: bandemia Qualified Code(s): D72.825 - Bandemia (5) CKD (chronic kidney disease), stage V Current Visit: Yes Status: Chronic I found eGFR from 2016 in the Stage V range. So I suspect his is his baseline. Subjective Principal diagnosis: Pneumonia Interval history: Pt seen and examined. Just got back from IR for permacath. Denies n/v/diarrhea. Denies CP, admits to shortness of breath. Objective - Vital Signs Vital signs: Vital Signs Temp Pulse Resp BP Pulse Ox 03/05/18 09:11 89 14 127/63 95 03/05/18 09:06 86 14 149/63 94 03/05/18 07:45 18 94 03/05/18 07:42 98.2 F 77 18 146/73 95 03/05/18 04:15 98.8 F 81 18 118/63 96 03/05/18 01:02 98.1 F 76 18 137/54 95 03/04/18 22:00 95 03/04/18 20:44 97.6 F 80 18 153/66 96 03/04/18 19:38 18 95 03/04/18 15:47 98.1 F 78 18 124/71 95 03/04/18 13:35 20 90 03/04/18 10:39 97.6 F 82 18 98/45 96 Intake and Output 03/04/18 03/05/18 03/05/18 23:59 07:59 15:59 Intake Total 100 / 100 0 / 0 Output Total 600 / 600 Balance 100 / 100 -600 / -600 0 / 0 Intake: IV Fluids 100 / 100 Zosyn 3.375 GM In 0.9 % Sodium 100 / 100 Chloride (Mini-Bag +) 100 ML @ 25 mls/hr IVPB Q12HR [facility] Rx#: [id number] Oral 0 / 0 Output: Urine 600 / 600 Other: Meal NPO Percent of Meal Consumed 0% Weight 140.1 kg Patient Weight 03/05/18 23:59 Weight 140.1 kg - General Appearance General appearance: Present: well-developed, well-nourished, obese EENT: Present: ATNC, hearing intact, vision intact Neck: Present: supple Respiratory: Present: clear Cardiology: Present: no edema, normal S1, normal S2 Dialysis Vascular Access: Venous Catheter (Tunneled Line, DSRG C/D/I) Gastrointestinal: Present: normoactive bowel sounds, no tenderness, no guarding Integumentary: Present: no rash, warm and dry Neurologic: Present: alert and oriented x3 Psychiatric: Present: mood/affect appropriate, cooperative - Lab 03/05/18 04:00 03/05/18 04:00 Most recent lab results Calcium 8.3 mg/dL (8.6-10.3) L 03/05/18 04:00 Phosphorus 11.8 mg/dL (2.7-4.5) H 02/26/18 10:31 Magnesium 2.7 mg/dL (1.6-2.6) H 02/26/18 01:40 Urine Creatinine 72 mg/dL 02/27/18 08:30 Urine Sodium 41.6 mEq/L 02/27/18 08:30 Urine Total Protein 24 mg/dL (1-14) H 02/27/18 08:30 Consult Discharge Plan - Plan Referrals: [facility] [Primary Care Provider] -
[2018-03-05] MEDS ORDERED: *HR* Heparin 10,000 UNIT/10 ML VIAL IV PRN (12:21)
[2018-03-05] MEDS: 0.9 % Sodium Chloride 1,000 ML PRIME SCH (12:45)
[2018-03-05] MEDS: Sennosides 8.6 MG TABLET PO SCH (20:06)
[2018-03-06] MEDS: levoFLOXacin 500 MG TABLET PO SCH (06:28)
[2018-03-06] MEDS: Piperacillin/Tazobactam 3.375 GM in 0.9 % Sodium Chloride Mini Bag 100 ML IVPB SCH (06:29)
[2018-03-06 06:36] LABS: Hematocrit 32.4 % (37.5-50.1); Hemoglobin 10.3 g/dL (12.9-16.9); Mean Corpuscular HGB Conc 31.8 g/dL (31.6-35.5); Mean Corpuscular Hemoglobin 30.1 pg (28.0-33.3); Mean Corpuscular Volume 94.7 fL (83.0-100.0); Mean Platelet Volume 11.9 fL (9.4-12.4); Platelet Count 165 K/mcL (140-400); Red Blood Count 3.42 M/mcL (4.19-5.50); Red Cell Distribution Width 17.9 % (11.5-14.5)
[2018-03-06] MEDS: *HR* Heparin 5,000 UNIT/ML VIAL SQ SCH ×2 (06:38→16:24)
[2018-03-06] MEDS: *HR* OxyCODONE/APAP 5/325 TABLET PO PRN ×3 (06:40→20:52)
[2018-03-06 06:50] LABS: Calcium 8.7 mg/dL (8.6-10.3)
[2018-03-06] MEDS: Ipratropium/Albuterol Neb 3 ML IH PRN ×3 (07:27→20:55)
[2018-03-06] MEDS: Budesonide/Formoterol 160/4.5 1 PUFF INH IH SCH ×2 (07:28→20:55)
[2018-03-06 08:26] LABS: Lymphocytes # 1.2 K/mcL (0.6-4.6); Monocytes # 1.8 K/mcL (0.0-1.3); Neutrophils # 12.1 K/mcL (1.6-8.9)
[2018-03-06 08:27] LABS: Platelet Estimate Normal (Normal)
--- NOTE | 2018-03-06 09:34 | Internal Med Progress Note ---
<Luna Hinojosa - Last Filed: 03/06/18 11:48> Hospitalist Progress Note - Encounter Date of Encounter: 03/06/18 Time of Encounter: 08:45 - Subjective Interval History: Patient seen and examined. No acute events overnight. The patient is making a bowel movement on bedside commode. He states hes ok but feels a little weak today. Had dialysis yesterday. Denies any other complaints at this time. Denies chest pain and shortness of breath. Denies fever/chills. Denies nausea/vomiting , abdominal pain, constipation/diarrhea. - Exam Vitals: Temp Pulse Resp BP Pulse Ox 98.7 F 92 18 125/50 95 03/06/18 07:08 03/06/18 07:08 03/06/18 07:50 03/06/18 07:08 03/06/18 07:50 Exam: General: Morbidly obese. Alert and oriented x3. No acute distress. Head: atraumatic, normocephalic. 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 Eye: pupils equal and round. Sclera anicteric. EOMI. Mouth: oral mucosa moist. Normal oropharynx. Neck: supple. Trachea midline. Lungs: CTAB. No rhonchi, rales, or wheezing. No respiratory distress. No accessory muscle use. Cardiovascular: Normal S1 & S2. No rubs or gallops. No JVD. Pulse regular. Abdomen: Morbidly obese. Normal bowel sounds. Nontender. No rigidity, no rebound. Extremities: 2+ pitting edema in left lower extremity. 1+ pitting edema in RLE. Venous stasis changes. Erythema on RLE. No tenderness. No joint swelling or clubbing. Skin: warm, dry, and intact. - Assessment and Plan (1) Acute on chronic kidney failure Current Visit: Yes Status: Acute Assessment and Plan: Developed ESRD. Temporary cath with hemodialysis. No improvement of renal function. Permacath placed for outpatient HD. Hemodialysis yesterday. Next dialysis tomorrow. Awaiting outpatient HD chair time. Nephrology following. (2) Pneumonia Current Visit: Yes Status: Suspected Assessment and Plan: Suspect bacterial PNA. Nasal MRSA screen positive. Respiratory virus panel was negative. CT chest showed increased ground glass opacity in CANDACE. Suspicious for low grade lung carcinoma. Overlying pneumonia also possible. Blood cultures are negative. Discontinue zosyn due to WBC downtrending and patient clinically improved. Continue Day 9 of Levaquin. (3) Urinary retention Current Visit: Yes Status: Acute Assessment and Plan: Likely secondary to BPH. Continue Flomax. Continue Ramires catheter. Need to follow up with urology as an outpatient for voiding trial. (4) COPD (chronic obstructive pulmonary disease) Current Visit: Yes Status: Chronic Assessment and Plan: Presented with mild exacerbation. Improved. Cont Duoneb and O2. Steroids discontinued. (5) Benign hypertension with chronic kidney disease, stage IV Current Visit: Yes Status: Chronic Assessment and Plan: Stable with current regimen (6) Hyperlipidemia Current Visit: Yes Status: Chronic Assessment and Plan: Continue statin (7) Acute and chronic respiratory failure with hypoxia Current Visit: Yes Status: Acute Assessment and Plan: Likely secondary to pneumonia and volume overload. Improved. On 6L nasal cannula oxygen. Baseline 4-6L at home. Continue Duoneb and empirical abx. HD as per Nephro recommendations. DVT Prophylaxis: Heparin subQ - Time Spent with Patient Total time spent is greater than 50% in coordination of care (as documented) at patient's floor/unit and/or counseling patient: Internal Medicine: Result - Labs CBC & Chem 7: 03/06/18 05:27 03/06/18 05:27 Labs: Short CBC 03/06/18 Range/Units 05:27 WBC 15.1 H (4.3-11.1) K/mcL Hgb 10.3 L (12.9-16.9) g/dL Hct 32.4 L (37.5-50.1) % Plt Count 165 (140-400) K/mcL Neutrophils # 12.1 H (1.6-8.9) K/mcL BMP 03/06/18 05:27 Sodium 137 Potassium 4.0 Chloride 98 Carbon Dioxide 25 BUN 35 H Creatinine 5.35 H Glucose 96 Calcium 8.7 - ABG Interpretation ABG results: PT/INR, D-dimer PT 12.8 Seconds (9.4-12.1) H 02/26/18 10:31 - Impressions Impressions Guidance Ultrasound 03/05/18 00:00 IMPRESSION: 1. Right internal jugular vein tunneled dialysis catheter placement as discussed above. D/ / Chase Urban MD / Chase Urban MD Interpreting Provider: Chase Urban MD Insertion Tunneled Catheter 03/05/18 00:00 IMPRESSION: 1. Right internal jugular vein tunneled dialysis catheter placement as discussed above. D/ / Chase Urban MD / Chase Urban MD Interpreting Provider: Chase Urban MD Consult Discharge Plan - Plan [facility]errals: [facility] [Primary Care Provider] - <Hlale Chao - Last Filed: 03/06/18 13:21> Hospitalist Progress Note - Encounter Date of Encounter: 03/06/18 - Exam Vitals: Temp Pulse Resp BP Pulse Ox 98.6 F 83 18 149/75 93 03/06/18 12:21 03/06/18 12:21 03/06/18 12:21 03/06/18 12:21 03/06/18 12:21 - Assessment and Plan (1) Acute on chronic kidney failure Current Visit: Yes Status: Acute (2) Benign hypertension with chronic kidney disease, stage IV Current Visit: Yes Status: Chronic (3) Urinary retention Current Visit: Yes Status: Acute (4) Pneumonia Current Visit: Yes Status: Suspected (5) Hyperlipidemia Current Visit: Yes Status: Chronic (6) COPD (chronic obstructive pulmonary disease) Current Visit: Yes Status: Chronic (7) Acute and chronic respiratory failure with hypoxia Current Visit: Yes Status: Acute - Time Spent with Patient Total time spent is greater than 50% in coordination of care (as documented) at patient's floor/unit and/or counseling patient: Internal Medicine: Result - Labs CBC & Chem 7: 03/06/18 05:27 03/06/18 05:27 Labs: Short CBC 03/06/18 Range/Units 05:27 WBC 15.1 H (4.3-11.1) K/mcL Hgb 10.3 L (12.9-16.9) g/dL Hct 32.4 L (37.5-50.1) % Plt Count 165 (140-400) K/mcL Neutrophils # 12.1 H (1.6-8.9) K/mcL BMP 03/06/18 05:27 Sodium 137 Potassium 4.0 Chloride 98 Carbon Dioxide 25 BUN 35 H Creatinine 5.35 H Glucose 96 Calcium 8.7 - ABG Interpretation ABG results: PT/INR, D-dimer PT 12.8 Seconds (9.4-12.1) H 02/26/18 10:31 - Impressions Impressions Guidance Ultrasound 03/05/18 00:00 IMPRESSION: 1. Right internal jugular vein tunneled dialysis catheter placement as discussed above. D/ / Chase Urban MD / Chase Urban MD Interpreting Provider: Chase Urban MD Insertion Tunneled Catheter 03/05/18 00:00 IMPRESSION: 1. Right internal jugular vein tunneled dialysis catheter placement as discussed above. D/ / Chase Urban MD / Chase Urban MD Interpreting Provider: Chase Urban MD - Attending Attestation Seen and assessed. Agree with plan and exam per resident. Plan 1. Acute hypoxic respiratory failure with bacterial pneumonia. Improved. Plan to d/c home on levaquin and home oxygen as needed 2. LÁZARO on CKD. On dialysis. Awaiting Hemodialysis chair for discharge planning <Luna Hinojosa - Last Filed: 03/06/18 11:48> (1) Acute on chronic kidney failure Qualifiers: Acute renal failure type: unspecified Chronic kidney disease stage: stage 4 ( severe) Qualified Code(s): N17.9 - Acute kidney failure, unspecified; N18.4 - Chronic kidney disease, stage 4 (severe) (2) Pneumonia Qualifiers: Pneumonia type: due to methicillin-resistant Staphylococcus aureus (MRSA) Laterality: right Lung location: upper lobe of lung Qualified Code(s): J15.212 - Pneumonia due to Methicillin resistant Staphylococcus aureus (4) COPD (chronic obstructive pulmonary disease) Qualifiers: COPD type: emphysema Emphysema type: panlobular Qualified Code(s): J43.1 - Panlobular emphysema (6) Hyperlipidemia Qualifiers: Hyperlipidemia type: mixed hyperlipidemia Qualified Code(s): E78.2 - Mixed hyperlipidemia <Halle Chao - Last Filed: 03/06/18 13:21> (1) Acute on chronic kidney failure Qualifiers: Acute renal failure type: unspecified Chronic kidney disease stage: stage 4 ( severe) Qualified Code(s): N17.9 - Acute kidney failure, unspecified; N18.4 - Chronic kidney disease, stage 4 (severe) (4) Pneumonia Qualifiers: Pneumonia type: due to methicillin-resistant Staphylococcus aureus (MRSA) Laterality: right Lung location: upper lobe of lung Qualified Code(s): J15.212 - Pneumonia due to Methicillin resistant Staphylococcus aureus (5) Hyperlipidemia Qualifiers: Hyperlipidemia type: mixed hyperlipidemia Qualified Code(s): E78.2 - Mixed hyperlipidemia (6) COPD (chronic obstructive pulmonary disease) Qualifiers: COPD type: emphysema Emphysema type: panlobular Qualified Code(s): J43.1 - Panlobular emphysema
[2018-03-06] MEDS: Cyanocobalamin (B-12) 1,000 MCG TABLET PO SCH (10:05)
[2018-03-06] MEDS: Metoprolol XL (24 HR) Succ 50 MG TAB.ER.24H PO SCH (10:05)
[2018-03-06] MEDS: Aspirin Enteric Coated 325 MG Tablet PO SCH (10:05)
--- NOTE | 2018-03-06 10:20 | Nephrology Progress Note ---
Date of Encounter: 03/06/18 Time of Encounter: 10:17 - Assessment and Plan (1) LÁZARO (acute kidney injury) Current Visit: Yes Status: Acute Permacath in place, HD completed yesterday. HD tomorrow. Social Service consult placed for outpatient HD chair time. Uop 750 yesterday. Will watch for signs of renal recovery. Joyce RN asking urology is spann should be removed for voiding trial. (2) Urinary retention Current Visit: Yes Status: Acute Spann in place, urology signed off with followup outpatient. Last urology note states to leave spann in and have patient go to office for voiding trial. See above. (3) Acute and chronic respiratory failure with hypoxia Current Visit: Yes Status: Acute per primary. (4) Leukocytosis Current Visit: Yes Status: Acute Trending better at 15.1. Qualifiers: Leukocytosis type: bandemia Qualified Code(s): D72.825 - Bandemia (5) CKD (chronic kidney disease), stage V Current Visit: Yes Status: Chronic I found eGFR from 2016 in the Stage V range. So I suspect his is his baseline. Subjective Principal diagnosis: Pneumonia Interval history: Pt seen and examined. Denies CP/SOB. Denies n/v/d. Objective - Vital Signs Vital signs: Vital Signs Temp Pulse Resp BP Pulse Ox 03/06/18 07:50 18 95 03/06/18 07:08 98.7 F 92 20 125/50 94 03/06/18 03:43 98.6 F 82 17 165/77 95 03/06/18 00:09 98.9 F 84 17 143/44 97 03/05/18 20:52 18 143/44 97 03/05/18 19:28 98.8 F 92 17 125/68 93 03/05/18 16:47 97.4 F L 18 151/65 03/05/18 16:25 154/74 03/05/18 16:10 163/65 03/05/18 15:55 163/69 03/05/18 15:40 175/76 03/05/18 15:25 163/71 03/05/18 15:10 163/57 03/05/18 14:55 119/40 03/05/18 14:40 148/66 03/05/18 14:25 161/65 03/05/18 14:10 148/61 03/05/18 13:55 146/68 03/05/18 13:40 148/68 03/05/18 13:25 158/80 03/05/18 13:10 151/74 03/05/18 12:55 97.3 F L 18 144/66 03/05/18 11:11 98.0 F 76 16 108/70 98 03/05/18 10:20 95 Intake and Output 03/05/18 03/06/18 03/06/18 23:59 07:59 15:59 Intake Total 1370 / 1370 Output Total 2600 / 2600 Balance -1230 / -1230 Intake: IV Fluids 1250 / 1250 Ancef Premix DUPLEX 2,000 mg In 50 / 50 50 ml @ 100 mls/hr IVPB ONCE ONE Rx#:[id number] Zosyn 3.375 GM In 0.9 % Sodium 100 / 100 Chloride (Mini-Bag +) 100 ML @ 25 mls/hr IVPB Q12HR [facility] Rx#: [id number] 0.9 % Sodium Chloride 1,000 ML 1000 / 1000 @ As Directed PRIME .Q0M [facility] Rx #:[id number] Oral 120 / 120 Output: Urine 0 / 0 Total Dialysis (HD) Output 2600 / 2600 Other: Meal Dinner Percent of Meal Consumed 45% Stool Size Small Stool Consistency loose Stool Color Brown # Bowel Movements 1 # Bowel Movement Diapers 1 Hemodialysis Net Fluid Removed 2000 (mL) - General Appearance General appearance: Present: well-developed, well-nourished EENT: Present: ATNC, hearing intact, vision intact Neck: Present: supple Respiratory: Present: clear Cardiology: Present: edema (+1 pitting edema noted to bilat lower extremities.) , normal S1, normal S2 Dialysis Vascular Access: Venous Catheter (Tunneled Line, DRSG C/D/I.) Gastrointestinal: Present: normoactive bowel sounds, no tenderness, no guarding Integumentary: Present: no rash, warm and dry Neurologic: Present: alert and oriented x3 Psychiatric: Present: mood/affect appropriate, cooperative - Lab 03/06/18 05:27 03/06/18 05:27 Most recent lab results Calcium 8.7 mg/dL (8.6-10.3) 03/06/18 05:27 Phosphorus 11.8 mg/dL (2.7-4.5) H 02/26/18 10:31 Magnesium 2.7 mg/dL (1.6-2.6) H 02/26/18 01:40 Urine Creatinine 72 mg/dL 02/27/18 08:30 Urine Sodium 41.6 mEq/L 02/27/18 08:30 Urine Total Protein 24 mg/dL (1-14) H 02/27/18 08:30 Consult Discharge Plan - Plan [facility]errals: [facility] [Primary Care Provider] -
--- NOTE | 2018-03-06 13:22 | Physician Discharge Referral ---
Home Health/Hosp Referral Info Transfer to: Home Health - Diagnosis (1) Acute on chronic kidney failure Priority: Primary Status: Acute (2) Benign hypertension with chronic kidney disease, stage IV Priority: Primary Status: Chronic (3) Urinary retention Priority: Primary Status: Acute (4) Pneumonia Priority: Primary Status: Suspected (5) Hyperlipidemia Priority: Primary Status: Chronic (6) COPD (chronic obstructive pulmonary disease) Priority: Primary Status: Chronic (7) Acute and chronic respiratory failure with hypoxia Priority: Primary Status: Acute - Respiratory Orders Smoking Cessation: Smoking cessation has been advised. For more information, call the [place] Tobacco Quit Line at 8-183-RTSU-NOW. - Transfer Medications Home Medications: Allopurinol [Zyloprim 100 MG] 200 mg PO DAILY 09/28/15 [History] Baclofen [Lioresal] 15 mg PO TID PRN 09/28/15 [History] Budesonide/Formoterol 160/4.5 [Symbicort 160/4.5] 2 puff IH BIDR 09/28/15 [ History] Cetirizine HCl [Zyrtec] 10 mg PO DAILY 09/28/15 [History] Meclizine HCl [Verticalm] 12.5 mg PO BID PRN 09/28/15 [History] OxyCODONE/APAP 5/325 [Percocet 5/325 MG] 1 tab PO Q6HR PRN 09/28/15 [History] Pantoprazole Sodium [Protonix] 40 mg PO BID 09/28/15 [History] Simvastatin [Zocor] 40 mg PO DAILY 09/28/15 [History] Albuterol Sulfate [Proair Hfa] 2 puff IH Q4H PRN 12/14/15 [History] Aspirin Enteric Coated [Aspirin EC] 325 mg PO DAILY 12/14/15 [History] Ondansetron [Zofran] 8 mg PO BID PRN 12/14/15 [History] Calcitriol 0.5 mcg PO DAILY 02/26/18 [History] Cyanocobalamin (Vitamin B-12) [Vitamin B12] 1,000 mcg PO DAILY 02/26/18 [History ] Metoprolol Succinate [[place] Sprinkle] 50 mg PO DAILY 02/26/18 [History] Sennosides [Senna] 2 tab PO HS 02/26/18 [History] Tiotropium [place] [Spiriva Respimat] 2 puff IH DAILY 02/26/18 [History] Allergies/Adverse Reactions: 3 Allergy/AdvReac Type Severity Reaction Status Date / Time NSAIDS (Non-Steroidal Allergy See Verified 09/28/15 20:55 Anti-Inflamma Comments Certification: Further, I certify that my clinical findings support that this patient is homebound (i.e. absences from home require considerable and taxing effort and are for medical reasons or congregational services or infrequently or short duration when for other reasons) because: Homebound Reason: Patient requires assistance of a person or device to safely leave home Attestation: My signature below is to certify that this patient is under my care and that I, or nurse practitioner, or a physician's information assistant working with me, has a face-to -face encounter with this patient.
--- NOTE | 2018-03-06 15:52 | Physician Discharge Referral ---
Home Health/Hosp Referral Info Transfer to: Home Health - Diagnosis (1) Acute on chronic kidney failure Priority: Primary Status: Acute (2) Benign hypertension with chronic kidney disease, stage IV Priority: Primary Status: Chronic (3) Urinary retention Priority: Primary Status: Acute (4) Pneumonia Priority: Primary Status: Suspected (5) Hyperlipidemia Priority: Primary Status: Chronic (6) COPD (chronic obstructive pulmonary disease) Priority: Primary Status: Chronic (7) Acute and chronic respiratory failure with hypoxia Priority: Primary Status: Acute - Respiratory Orders Smoking Cessation: Smoking cessation has been advised. For more information, call the [place] Tobacco Quit Line at 5-197-FGXW-NOW. - Services Needed Following services are medically necessary services: Nursing, Home Health Aide, Physical Therapy - Transfer Medications Home Medications: Allopurinol [Zyloprim 100 MG] 200 mg PO DAILY 09/28/15 [History] Baclofen [Lioresal] 15 mg PO TID PRN 09/28/15 [History] Budesonide/Formoterol 160/4.5 [Symbicort 160/4.5] 2 puff IH BIDR 09/28/15 [ History] Cetirizine HCl [Zyrtec] 10 mg PO DAILY 09/28/15 [History] Meclizine HCl [Verticalm] 12.5 mg PO BID PRN 09/28/15 [History] OxyCODONE/APAP 5/325 [Percocet 5/325 MG] 1 tab PO Q6HR PRN 09/28/15 [History] Pantoprazole Sodium [Protonix] 40 mg PO BID 09/28/15 [History] Simvastatin [Zocor] 40 mg PO DAILY 09/28/15 [History] Albuterol Sulfate [Proair Hfa] 2 puff IH Q4H PRN 12/14/15 [History] Aspirin Enteric Coated [Aspirin EC] 325 mg PO DAILY 12/14/15 [History] Ondansetron [Zofran] 8 mg PO BID PRN 12/14/15 [History] Calcitriol 0.5 mcg PO DAILY 02/26/18 [History] Cyanocobalamin (Vitamin B-12) [Vitamin B12] 1,000 mcg PO DAILY 02/26/18 [History ] Metoprolol Succinate [[place] Sprinkle] 50 mg PO DAILY 02/26/18 [History] Sennosides [Senna] 2 tab PO HS 02/26/18 [History] Tiotropium [place] [Spiriva Respimat] 2 puff IH DAILY 02/26/18 [History] Allergies/Adverse Reactions: 3 Allergy/AdvReac Type Severity Reaction Status Date / Time NSAIDS (Non-Steroidal Allergy See Verified 09/28/15 20:55 Anti-Inflamma Comments Certification: Further, I certify that my clinical findings support that this patient is homebound (i.e. absences from home require considerable and taxing effort and are for medical reasons or latter-day services or infrequently or short duration when for other reasons) because: Homebound Reason: Patient requires assistance of a person or device to safely leave home Attestation: My signature below is to certify that this patient is under my care and that I, or nurse practitioner, or a physician's distribution center assistant working with me, has a face-to -face encounter with this patient.
[2018-03-06] MEDS: Sennosides 8.6 MG TABLET PO SCH (20:52)
[2018-03-07 05:21] LABS: Hematocrit 30.9 % (37.5-50.1); Hemoglobin 9.9 g/dL (12.9-16.9); Mean Corpuscular Hemoglobin 29.8 pg (28.0-33.3); Mean Corpuscular Volume 93.1 fL (83.0-100.0); Mean Platelet Volume 11.5 fL (9.4-12.4); Platelet Count 152 K/mcL (140-400); Red Blood Count 3.32 M/mcL (4.19-5.50)
[2018-03-07] MEDS: Ipratropium/Albuterol Neb 3 ML IH PRN ×3 (05:30→20:34)
[2018-03-07 05:35] LABS: Calcium 8.4 mg/dL (8.6-10.3); Potassium 3.7 mEq/L (3.5-5.1)
[2018-03-07] MEDS: *HR* Heparin 5,000 UNIT/ML VIAL SQ SCH ×2 (05:57→18:14)
[2018-03-07 06:04] LABS: Anisocytosis 1+ (Not Present); Eosinophils # 0.5 K/mcL (0.0-0.6); Lymphocytes # 1.5 K/mcL (0.6-4.6); Macrocytosis Present (Not Present); Monocytes # 0.5 K/mcL (0.0-1.3); Neutrophils # 9.8 K/mcL (1.6-8.9); Platelet Estimate Normal (Normal)
[2018-03-07] MEDS: Budesonide/Formoterol 160/4.5 1 PUFF INH IH SCH ×2 (07:55→20:34)
--- NOTE | 2018-03-07 07:56 | Internal Med Progress Note ---
<Luna Hinojosa - Last Filed: 03/07/18 11:48> Hospitalist Progress Note - Encounter Date of Encounter: 03/07/18 Time of Encounter: 07:30 - Subjective Interval History: Patient seen and examined. No acute events overnight. The patient is sleeping comfortably in bed. He states hes feels good. Denies any complaints at this time. Had spann removed yesterday and denies any issues urinating. Denies chest pain and shortness of breath. Denies fever/chills. Denies nausea/vomiting, abdominal pain, constipation/diarrhea. - Exam Vitals: Temp Pulse Resp BP Pulse Ox 98.2 F 90 19 171/72 91 03/07/18 07:41 03/07/18 07:41 03/07/18 07:41 03/07/18 07:41 03/07/18 07:41 Exam: General: Morbidly obese. Alert and oriented x3. No acute distress. Head: atraumatic, normocephalic. 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 Eye: pupils equal and round. Sclera anicteric. EOMI. Mouth: oral mucosa moist. Normal oropharynx. Neck: supple. Trachea midline. Lungs: Mild diffuse wheezing. No rhonchi or rales. No respiratory distress. No accessory muscle use. Cardiovascular: Normal S1 & S2. No rubs or gallops. No JVD. Pulse regular. Abdomen: Morbidly obese. Normal bowel sounds. Nontender. No rigidity, no rebound. Extremities: 2+ pitting edema in left lower extremity. 1+ pitting edema in RLE. Venous stasis changes. Erythema on RLE. No tenderness. No joint swelling or clubbing. Skin: warm, dry, and intact. - Assessment and Plan (1) Acute on chronic kidney failure Current Visit: Yes Status: Acute Assessment and Plan: Developed ESRD. Temporary cath with hemodialysis. No improvement of renal function. Permacath placed for outpatient HD. Hemodialysis today. Awaiting outpatient HD chair time. Nephrology following. (2) COPD (chronic obstructive pulmonary disease) Current Visit: Yes Status: Chronic Assessment and Plan: Presented with mild exacerbation. Improved. Cont Duoneb and O2. Steroids discontinued. (3) Urinary retention Current Visit: Yes Status: Resolved Assessment and Plan: Likely secondary to BPH. Spann catheter removed yesterday. Urinating without issue. Continue Flomax. Need to follow up with urology as an outpatient for voiding trial. (4) Pneumonia Current Visit: Yes Status: Suspected Assessment and Plan: Suspect bacterial PNA. Nasal MRSA screen positive. Respiratory virus panel was negative. CT chest showed increased ground glass opacity in CANDACE. Suspicious for low grade lung carcinoma. Overlying pneumonia also possible. Blood cultures are negative. Zosyn discontinued due to WBC downtrending and patient clinically improved. Continue Day 10 of Levaquin. (5) Benign hypertension with chronic kidney disease, stage IV Current Visit: Yes Status: Chronic Assessment and Plan: Stable with current regimen (6) Hyperlipidemia Current Visit: Yes Status: Chronic Assessment and Plan: Continue statin (7) Acute and chronic respiratory failure with hypoxia Current Visit: Yes Status: Acute Assessment and Plan: Likely secondary to pneumonia and volume overload. Improved. On 6L nasal cannula oxygen. Baseline 4-6L at home. Continue Duoneb and empirical abx. HD as per Nephro recommendations. DVT Prophylaxis: Heparin subQ - Time Spent with Patient Total time spent is greater than 50% in coordination of care (as documented) at patient's floor/unit and/or counseling patient: Internal Medicine: Result - Labs CBC & Chem 7: 03/07/18 04:43 03/07/18 04:43 Labs: Short CBC 03/06/18 03/07/18 Range/Units 05:27 04:43 WBC 12.5 H (4.3-11.1) K/mcL Hgb 9.9 L (12.9-16.9) g/dL Hct 30.9 L (37.5-50.1) % Plt Count 152 (140-400) K/mcL Neutrophils # 12.1 H 9.8 H (1.6-8.9) K/mcL BMP 03/07/18 04:43 Sodium 137 Potassium 3.7 Chloride 99 Carbon Dioxide 23 BUN 44 H Creatinine 6.29 H Glucose 87 Calcium 8.4 L - ABG Interpretation ABG results: PT/INR, D-dimer PT 12.8 Seconds (9.4-12.1) H 02/26/18 10:31 Consult Discharge Plan - Plan [facility]errals: [facility] [Primary Care Provider[facility] - <Halle Chao - Last Filed: 03/07/18 15:25> Hospitalist Progress Note - Encounter Date of Encounter: 03/07/18 - Exam Vitals: Temp Pulse Resp BP Pulse Ox 98.2 F 84 18 137/70 96 03/07/18 11:15 03/07/18 11:15 03/07/18 13:08 03/07/18 11:15 03/07/18 13:08 - Assessment and Plan (1) Acute on chronic kidney failure Current Visit: Yes Status: Acute (2) Benign hypertension with chronic kidney disease, stage IV Current Visit: Yes Status: Chronic (3) Urinary retention Current Visit: Yes Status: Resolved (4) Pneumonia Current Visit: Yes Status: Suspected (5) Hyperlipidemia Current Visit: Yes Status: Chronic (6) COPD (chronic obstructive pulmonary disease) Current Visit: Yes Status: Chronic (7) Acute and chronic respiratory failure with hypoxia Current Visit: Yes Status: Acute - Time Spent with Patient Total time spent is greater than 50% in coordination of care (as documented) at patient's floor/unit and/or counseling patient: Internal Medicine: Result - Labs CBC & Chem 7: 03/07/18 04:43 03/07/18 04:43 Labs: Short CBC 03/07/18 Range/Units 04:43 WBC 12.5 H (4.3-11.1) K/mcL Hgb 9.9 L (12.9-16.9) g/dL Hct 30.9 L (37.5-50.1) % Plt Count 152 (140-400) K/mcL Neutrophils # 9.8 H (1.6-8.9) K/mcL BMP 03/07/18 04:43 Sodium 137 Potassium 3.7 Chloride 99 Carbon Dioxide 23 BUN 44 H Creatinine 6.29 H Glucose 87 Calcium 8.4 L - ABG Interpretation ABG results: PT/INR, D-dimer PT 12.8 Seconds (9.4-12.1) H 02/26/18 10:31 - Attending Attestation Seen and assessed. Agree with plan per resident Awaiting discharge pending [facility] approval of dialysis chair/ spot <Luna Hinojosa - Last Filed: 03/07/18 11:48> (1) Acute on chronic kidney failure Qualifiers: Acute renal failure type: unspecified Chronic kidney disease stage: stage 4 ( severe) Qualified Code(s): N17.9 - Acute kidney failure, unspecified; N18.4 - Chronic kidney disease, stage 4 (severe) (2) COPD (chronic obstructive pulmonary disease) Qualifiers: COPD type: emphysema Emphysema type: panlobular Qualified Code(s): J43.1 - Panlobular emphysema (4) Pneumonia Qualifiers: Pneumonia type: due to methicillin-resistant Staphylococcus aureus (MRSA) Laterality: right Lung location: upper lobe of lung Qualified Code(s): J15.212 - Pneumonia due to Methicillin resistant Staphylococcus aureus (6) Hyperlipidemia Qualifiers: Hyperlipidemia type: mixed hyperlipidemia Qualified Code(s): E78.2 - Mixed hyperlipidemia <Halle Chao A - Last Filed: 03/07/18 15:25> (1) Acute on chronic kidney failure Qualifiers: Acute renal failure type: unspecified Chronic kidney disease stage: stage 4 ( severe) Qualified Code(s): N17.9 - Acute kidney failure, unspecified; N18.4 - Chronic kidney disease, stage 4 (severe) (4) Pneumonia Qualifiers: Pneumonia type: due to methicillin-resistant Staphylococcus aureus (MRSA) Laterality: right Lung location: upper lobe of lung Qualified Code(s): J15.212 - Pneumonia due to Methicillin resistant Staphylococcus aureus (5) Hyperlipidemia Qualifiers: Hyperlipidemia type: mixed hyperlipidemia Qualified Code(s): E78.2 - Mixed hyperlipidemia (6) COPD (chronic obstructive pulmonary disease) Qualifiers: COPD type: emphysema Emphysema type: panlobular Qualified Code(s): J43.1 - Panlobular emphysema
[2018-03-07] MEDS ORDERED: *HR* Heparin 10,000 UNIT/10 ML VIAL IV PRN (08:03)
[2018-03-07] MEDS: Aspirin Enteric Coated 325 MG Tablet PO SCH (09:01)
[2018-03-07] MEDS: Cyanocobalamin (B-12) 1,000 MCG TABLET PO SCH (09:01)
[2018-03-07] MEDS: Metoprolol XL (24 HR) Succ 50 MG TAB.ER.24H PO SCH (09:01)
[2018-03-07] MEDS: *HR* OxyCODONE/APAP 5/325 TABLET PO PRN ×2 (09:04→18:13)
--- NOTE | 2018-03-07 09:49 | Nephrology Progress Note ---
Date of Encounter: 03/07/18 Time of Encounter: 09:47 - Assessment and Plan (1) LÁZARO (acute kidney injury) Current Visit: Yes Status: Acute Permacath in place, HD completed 03/05/18 Social Service consult placed for outpatient HD chair time. Spann cath removed, able to void in urinal 400 cc noted. Will watch for signs of renal recovery. (2) Urinary retention Current Visit: Yes Status: Acute Appears resolved, spann cath is out. (3) Acute and chronic respiratory failure with hypoxia Current Visit: Yes Status: Acute per primary. (4) Leukocytosis Current Visit: Yes Status: Acute Trending better at 12.5. Qualifiers: Leukocytosis type: bandemia Qualified Code(s): D72.825 - Bandemia (5) CKD (chronic kidney disease), stage V Current Visit: Yes Status: Chronic I found eGFR from 2016 in the Stage V range. So I suspect his is his baseline. Subjective Principal diagnosis: Pneumonia Interval history: Pt seen and examined. Denies CP/SOB. Denies n/v/d. Objective - Vital Signs Vital signs: Vital Signs Temp Pulse Resp BP Pulse Ox 03/07/18 07:55 18 91 03/07/18 07:41 98.2 F 90 19 171/72 91 03/07/18 05:30 18 127/63 94 03/07/18 05:14 98.5 F 82 18 127/63 94 03/06/18 23:49 98.6 F 84 18 152/78 94 03/06/18 20:55 20 89 03/06/18 17:18 98.0 F 79 17 93/57 91 03/06/18 13:51 18 93 03/06/18 12:21 98.6 F 83 18 149/75 93 Intake and Output 03/06/18 03/07/18 03/07/18 23:59 07:59 15:59 Intake Total 240 / 240 Output Total 75 / 75 400 / 400 Balance -75 / -75 -400 / -400 240 / 240 Intake: Oral 240 / 240 Output: Urine 75 / 75 400 / 400 Other: Meal Breakfast Percent of Meal Consumed 100% Weight 139.6 kg Patient Weight 03/07/18 23:59 Weight 139.6 kg - General Appearance General appearance: Present: well-developed, well-nourished, obese EENT: Present: ATNC, hearing intact, vision intact Neck: Present: supple Respiratory: Present: clear Cardiology: Present: edema (Trace bilat lower extremity edema.), normal S1, normal S2 Dialysis Vascular Access: Venous Catheter (Tunneled Line, DRSG C/D/I) Gastrointestinal: Present: normoactive bowel sounds, no tenderness, no guarding Integumentary: Present: no rash, warm and dry Neurologic: Present: alert and oriented x3 Psychiatric: Present: mood/affect appropriate, cooperative - Lab 03/07/18 04:43 03/07/18 04:43 Most recent lab results Calcium 8.4 mg/dL (8.6-10.3) L 03/07/18 04:43 Phosphorus 11.8 mg/dL (2.7-4.5) H 02/26/18 10:31 Magnesium 2.7 mg/dL (1.6-2.6) H 02/26/18 01:40 Urine Creatinine 72 mg/dL 02/27/18 08:30 Urine Sodium 41.6 mEq/L 02/27/18 08:30 Urine Total Protein 24 mg/dL (1-14) H 02/27/18 08:30 Consult Discharge Plan - Plan [facility]errals: [facility] [Primary Care Provider] -
[2018-03-07] MEDS ORDERED: 0.9 % Sodium Chloride 1,000 ML ONE (12:39)
[2018-03-07] MEDS: 0.9 % Sodium Chloride 1,000 ML PRIME SCH (13:10)
[2018-03-07] MEDS: Sennosides 8.6 MG TABLET PO SCH (23:01)
[2018-03-08] MEDS: Ipratropium/Albuterol Neb 3 ML IH PRN ×3 (05:25→20:08)
[2018-03-08 05:43] LABS: Hematocrit 31.4 % (37.5-50.1); Hemoglobin 9.9 g/dL (12.9-16.9); Mean Corpuscular HGB Conc 31.5 g/dL (31.6-35.5); Mean Corpuscular Hemoglobin 29.6 pg (28.0-33.3); Mean Corpuscular Volume 93.7 fL (83.0-100.0); Mean Platelet Volume 10.9 fL (9.4-12.4); Platelet Count 166 K/mcL (140-400); Red Blood Count 3.35 M/mcL (4.19-5.50); Red Cell Distribution Width 17.7 % (11.5-14.5)
[2018-03-08 05:59] LABS: Calcium 8.9 mg/dL (8.6-10.3); Potassium 3.9 mEq/L (3.5-5.1)
[2018-03-08] MEDS: *HR* OxyCODONE/APAP 5/325 TABLET PO PRN ×2 (06:48→16:36)
[2018-03-08] MEDS: levoFLOXacin 500 MG TABLET PO SCH (06:49)
[2018-03-08 06:53] LABS: Eosinophils # 0.5 K/mcL (0.0-0.6); Monocytes # 1.5 K/mcL (0.0-1.3); Neutrophils # 8.6 K/mcL (1.6-8.9); Platelet Estimate Normal (Normal)
--- NOTE | 2018-03-08 09:10 | Internal Med Progress Note ---
<Luna Hinojosa - Last Filed: 03/08/18 09:08> Hospitalist Progress Note - Encounter Date of Encounter: 03/08/18 Time of Encounter: 08:00 - Subjective Interval History: Patient seen and examined. No acute events overnight. The patient is sitting comfortably in bed eating breakfast. He states hes feels good. Denies any complaints at this time. Had dialysis yesterday. Denies chest pain and shortness of breath. Denies fever/chills. Denies nausea/vomiting, abdominal pain , constipation/diarrhea. Awaiting hemodialysis chair time for discharge. - Exam Vitals: Temp Pulse Resp BP Pulse Ox 98.7 F 90 18 123/72 94 03/08/18 07:39 03/08/18 07:39 03/08/18 07:39 03/08/18 07:39 03/08/18 07:39 Exam: General: Morbidly obese. Alert and oriented x3. No acute distress. Head: atraumatic, normocephalic. 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 Eye: pupils equal and round. Sclera anicteric. EOMI. Mouth: oral mucosa moist. Normal oropharynx. Neck: supple. Trachea midline. Lungs: Mild diffuse wheezing in right lung. Left lung clear to auscultation. No rhonchi or rales. No respiratory distress. No accessory muscle use. Cardiovascular: Normal S1 & S2. No rubs or gallops. No JVD. Pulse regular. Abdomen: Morbidly obese. Normal bowel sounds. Nontender. No rigidity, no rebound. Extremities: 2+ pitting edema in left lower extremity. 1+ pitting edema in RLE. Venous stasis changes. No tenderness. No joint swelling or clubbing. Skin: warm, dry, and intact. - Assessment and Plan (1) Acute on chronic kidney failure Current Visit: Yes Status: Acute Assessment and Plan: Developed ESRD. Temporary cath with hemodialysis. No improvement of renal function. Permacath placed for outpatient HD. Hemodialysis yesterday. Next dialysis on Sunday. Awaiting outpatient HD chair time. Nephrology following. (2) COPD (chronic obstructive pulmonary disease) Current Visit: Yes Status: Chronic Assessment and Plan: Presented with mild exacerbation. Improved. Cont Duoneb and O2. Steroids discontinued. (3) Urinary retention Current Visit: Yes Status: Resolved Assessment and Plan: Likely secondary to BPH. Ramires catheter removed. Urinating without issue. Continue Flomax. Need to follow up with urology as an outpatient for voiding trial. (4) Pneumonia Current Visit: Yes Status: Suspected Assessment and Plan: Suspect bacterial PNA. Nasal MRSA screen positive. Respiratory virus panel was negative. CT chest showed increased ground glass opacity in CANDACE. Suspicious for low grade lung carcinoma. Overlying pneumonia also possible. Blood cultures are negative. Zosyn discontinued due to WBC downtrending and patient clinically improved. Day 11 of Levaquin. (5) Benign hypertension with chronic kidney disease, stage IV Current Visit: Yes Status: Chronic Assessment and Plan: Stable with current regimen (6) Hyperlipidemia Current Visit: Yes Status: Chronic Assessment and Plan: Continue statin (7) Acute and chronic respiratory failure with hypoxia Current Visit: Yes Status: Acute Assessment and Plan: Likely secondary to pneumonia and volume overload. Improved. On 6L nasal cannula oxygen. Baseline 4-6L at home. Continue Duoneb and empirical abx. HD as per Nephro recommendations. DVT Prophylaxis: Heparin subQ - Time Spent with Patient Total time spent is greater than 50% in coordination of care (as documented) at patient's floor/unit and/or counseling patient: Internal Medicine: Result - Labs CBC & Chem 7: 03/08/18 05:06 03/08/18 05:06 Labs: Short CBC 03/08/18 Range/Units 05:06 WBC 12.6 H (4.3-11.1) K/mcL Hgb 9.9 L (12.9-16.9) g/dL Hct 31.4 L (37.5-50.1) % Plt Count 166 (140-400) K/mcL Neutrophils # 8.6 (1.6-8.9) K/mcL BMP 03/08/18 05:06 Sodium 137 Potassium 3.9 Chloride 99 Carbon Dioxide 26 BUN 23 Creatinine 4.05 H Glucose 97 Calcium 8.9 - ABG Interpretation ABG results: PT/INR, D-dimer PT 12.8 Seconds (9.4-12.1) H 02/26/18 10:31 Consult Discharge Plan - Plan Referrals: [facility] [Primary Care Provider] - <Halle Chao - Last Filed: 03/08/18 14:41> Hospitalist Progress Note - Encounter Date of Encounter: 03/08/18 - Exam Vitals: Temp Pulse Resp BP Pulse Ox 98.8 F 92 18 94/52 91 03/08/18 10:43 03/08/18 10:43 03/08/18 10:43 03/08/18 10:43 03/08/18 10:43 - Assessment and Plan (1) Acute on chronic kidney failure Current Visit: Yes Status: Acute (2) Benign hypertension with chronic kidney disease, stage IV Current Visit: Yes Status: Chronic (3) Urinary retention Current Visit: Yes Status: Resolved (4) Pneumonia Current Visit: Yes Status: Suspected (5) Hyperlipidemia Current Visit: Yes Status: Chronic (6) COPD (chronic obstructive pulmonary disease) Current Visit: Yes Status: Chronic (7) Acute and chronic respiratory failure with hypoxia Current Visit: Yes Status: Acute - Time Spent with Patient Total time spent is greater than 50% in coordination of care (as documented) at patient's floor/unit and/or counseling patient: Internal Medicine: Result - Labs CBC & Chem 7: 03/08/18 05:06 03/08/18 05:06 Labs: Short CBC 03/08/18 Range/Units 05:06 WBC 12.6 H (4.3-11.1) K/mcL Hgb 9.9 L (12.9-16.9) g/dL Hct 31.4 L (37.5-50.1) % Plt Count 166 (140-400) K/mcL Neutrophils # 8.6 (1.6-8.9) K/mcL BMP 03/08/18 05:06 Sodium 137 Potassium 3.9 Chloride 99 Carbon Dioxide 26 BUN 23 Creatinine 4.05 H Glucose 97 Calcium 8.9 - ABG Interpretation ABG results: PT/INR, D-dimer PT 12.8 Seconds (9.4-12.1) H 02/26/18 10:31 - Attending Attestation Seen and assessed. Agree with plan per resident Awaiting discharge pending [facility] approval of dialysis chair/ spot <Luna Hinojosa - Last Filed: 03/08/18 09:08> (1) Acute on chronic kidney failure Qualifiers: Acute renal failure type: unspecified Chronic kidney disease stage: stage 4 ( severe) Qualified Code(s): N17.9 - Acute kidney failure, unspecified; N18.4 - Chronic kidney disease, stage 4 (severe) (2) COPD (chronic obstructive pulmonary disease) Qualifiers: COPD type: emphysema Emphysema type: panlobular Qualified Code(s): J43.1 - Panlobular emphysema (4) Pneumonia Qualifiers: Pneumonia type: due to methicillin-resistant Staphylococcus aureus (MRSA) Laterality: right Lung location: upper lobe of lung Qualified Code(s): J15.212 - Pneumonia due to Methicillin resistant Staphylococcus aureus (6) Hyperlipidemia Qualifiers: Hyperlipidemia type: mixed hyperlipidemia Qualified Code(s): E78.2 - Mixed hyperlipidemia <Halle Chao A - Last Filed: 03/08/18 14:41> (1) Acute on chronic kidney failure Qualifiers: Acute renal failure type: unspecified Chronic kidney disease stage: stage 4 ( severe) Qualified Code(s): N17.9 - Acute kidney failure, unspecified; N18.4 - Chronic kidney disease, stage 4 (severe) (4) Pneumonia Qualifiers: Pneumonia type: due to methicillin-resistant Staphylococcus aureus (MRSA) Laterality: right Lung location: upper lobe of lung Qualified Code(s): J15.212 - Pneumonia due to Methicillin resistant Staphylococcus aureus (5) Hyperlipidemia Qualifiers: Hyperlipidemia type: mixed hyperlipidemia Qualified Code(s): E78.2 - Mixed hyperlipidemia (6) COPD (chronic obstructive pulmonary disease) Qualifiers: COPD type: emphysema Emphysema type: panlobular Qualified Code(s): J43.1 - Panlobular emphysema
[2018-03-08] MEDS: Budesonide/Formoterol 160/4.5 1 PUFF INH IH SCH ×2 (09:14→20:08)
[2018-03-08] MEDS: Cyanocobalamin (B-12) 1,000 MCG TABLET PO SCH (09:26)
[2018-03-08] MEDS: Baclofen 10 MG TABLET PO PRN (09:26)
[2018-03-08] MEDS: Metoprolol XL (24 HR) Succ 50 MG TAB.ER.24H PO SCH (09:27)
[2018-03-08] MEDS: Aspirin Enteric Coated 325 MG Tablet PO SCH (09:27)
[2018-03-08] MEDS: *HR* Heparin 5,000 UNIT/ML VIAL SQ SCH ×2 (09:27→16:37)
[2018-03-08] MEDS: Sennosides 8.6 MG TABLET PO SCH (22:04)
[2018-03-09 04:57] LABS: Basophils # 0.2 K/mcL (0.0-0.2); Hematocrit 33.8 % (37.5-50.1); Hemoglobin 10.5 g/dL (12.9-16.9); Mean Corpuscular HGB Conc 31.1 g/dL (31.6-35.5); Mean Corpuscular Hemoglobin 29.4 pg (28.0-33.3); Mean Corpuscular Volume 94.7 fL (83.0-100.0); Mean Platelet Volume 10.7 fL (9.4-12.4); Platelet Count 183 K/mcL (140-400); Red Blood Count 3.57 M/mcL (4.19-5.50); Red Cell Distribution Width 17.4 % (11.5-14.5)
[2018-03-09 05:15] LABS: Calcium 8.8 mg/dL (8.6-10.3); Potassium 4.2 mEq/L (3.5-5.1)
[2018-03-09 05:30] LABS: Lymphocytes # 2.7 K/mcL (0.6-4.6); Neutrophils # 8.3 K/mcL (1.6-8.9); Platelet Estimate Normal (Normal); Reactive Lymphocytes Present (Not Present)
[2018-03-09] MEDS: *HR* Heparin 5,000 UNIT/ML VIAL SQ SCH ×2 (06:09→17:09)
--- NOTE | 2018-03-09 07:59 | Internal Med Progress Note ---
Hospitalist Progress Note - Encounter Date of Encounter: 03/09/18 Time of Encounter: 08:00 - Exam Vitals: Temp Pulse Resp BP Pulse Ox 98.1 F 76 18 137/69 93 03/09/18 07:11 03/09/18 07:11 03/09/18 07:11 03/09/18 07:11 03/09/18 07:11 Exam: General: Morbidly obese. Alert and oriented x3. No acute distress. Head: atraumatic, normocephalic. 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 Eye: pupils equal and round. Sclera anicteric. EOMI. Mouth: oral mucosa moist. Normal oropharynx. Neck: supple. Trachea midline. Lungs: Mild diffuse wheezing in right lung. Left lung clear to auscultation. No rhonchi or rales. No respiratory distress. No accessory muscle use. Cardiovascular: Normal S1 & S2. No rubs or gallops. No JVD. Pulse regular. Abdomen: Morbidly obese. Normal bowel sounds. Nontender. No rigidity, no rebound. Extremities: 2+ pitting edema in left lower extremity. 1+ pitting edema in RLE. Venous stasis changes. No tenderness. No joint swelling or clubbing. Skin: warm, dry, and intact. - Assessment and Plan (1) Acute on chronic kidney failure Current Visit: Yes Status: Acute Assessment and Plan: Developed ESRD. Temporary cath with hemodialysis. No improvement of renal function. Permacath placed for outpatient HD. Planned for hemodialysis today Awaiting outpatient HD chair time. Nephrology following. (2) Benign hypertension with chronic kidney disease, stage IV Current Visit: Yes Status: Chronic Assessment and Plan: Stable with current regimen (3) Urinary retention Current Visit: Yes Status: Resolved Assessment and Plan: Likely secondary to BPH. Ramires catheter removed. Urinating without issue. Continue Flomax. Need to follow up with urology as an outpatient for voiding trial. (4) Pneumonia Current Visit: Yes Status: Suspected Assessment and Plan: Suspect bacterial PNA. Nasal MRSA screen positive. Respiratory virus panel was negative. CT chest showed increased ground glass opacity in CANDACE. Suspicious for low grade lung carcinoma. Overlying pneumonia also possible. Blood cultures are negative. Zosyn discontinued due to WBC downtrending and patient clinically improved. Completed course of antibiotics (5) Hyperlipidemia Current Visit: Yes Status: Chronic Assessment and Plan: Continue statin (6) COPD (chronic obstructive pulmonary disease) Current Visit: Yes Status: Chronic Assessment and Plan: Presented with mild exacerbation. Improved. Cont Duoneb and O2. Steroids discontinued. (7) Acute and chronic respiratory failure with hypoxia Current Visit: Yes Status: Acute Assessment and Plan: Likely secondary to pneumonia and volume overload. Improved. On 6L nasal cannula oxygen. Baseline 4-6L at home. Continue Duoneb and empirical abx. HD as per Nephro recommendations. - Time Spent with Patient Total time spent is greater than 50% in coordination of care (as documented) at patient's floor/unit and/or counseling patient: Internal Medicine: Result - Labs CBC & Chem 7: 03/09/18 04:22 03/09/18 04:22 Labs: Short CBC 03/09/18 Range/Units 04:22 WBC 12.2 H (4.3-11.1) K/mcL Hgb 10.5 L (12.9-16.9) g/dL Hct 33.8 L (37.5-50.1) % Plt Count 183 (140-400) K/mcL Neutrophils # 8.3 (1.6-8.9) K/mcL BMP 03/09/18 04:22 Sodium 137 Potassium 4.2 Chloride 101 Carbon Dioxide 24 BUN 36 H Creatinine 5.32 H Glucose 90 Calcium 8.8 - ABG Interpretation ABG results: PT/INR, D-dimer PT 12.8 Seconds (9.4-12.1) H 02/26/18 10:31 Consult Discharge Plan - Plan [facility]errals: [facility] [Primary Care Provider] - (1) Acute on chronic kidney failure Qualifiers: Acute renal failure type: unspecified Chronic kidney disease stage: stage 4 ( severe) Qualified Code(s): N17.9 - Acute kidney failure, unspecified; N18.4 - Chronic kidney disease, stage 4 (severe) (4) Pneumonia Qualifiers: Pneumonia type: due to methicillin-resistant Staphylococcus aureus (MRSA) Laterality: right Lung location: upper lobe of lung Qualified Code(s): J15.212 - Pneumonia due to Methicillin resistant Staphylococcus aureus (5) Hyperlipidemia Qualifiers: Hyperlipidemia type: mixed hyperlipidemia Qualified Code(s): E78.2 - Mixed hyperlipidemia (6) COPD (chronic obstructive pulmonary disease) Qualifiers: COPD type: emphysema Emphysema type: panlobular Qualified Code(s): J43.1 - Panlobular emphysema
[2018-03-09] MEDS: *HR* OxyCODONE/APAP 5/325 TABLET PO PRN ×2 (08:15→17:08)
[2018-03-09] MEDS: Cyanocobalamin (B-12) 1,000 MCG TABLET PO SCH (08:16)
[2018-03-09] MEDS: Metoprolol XL (24 HR) Succ 50 MG TAB.ER.24H PO SCH (08:16)
[2018-03-09] MEDS: Baclofen 10 MG TABLET PO PRN ×2 (08:16→17:08)
[2018-03-09] MEDS: Aspirin Enteric Coated 325 MG Tablet PO SCH (08:16)
[2018-03-09] MEDS: Ondansetron ODT 4 MG TAB.RAPDIS PO PRN (08:42)
--- NOTE | 2018-03-09 08:47 | Nephrology Progress Note ---
Date of Encounter: 03/09/18 Time of Encounter: 10:15 - Assessment and Plan (1) LÁZARO (acute kidney injury) Status: Acute He has essentially progressed to ESRD. Permacath in place after reviewing his labs, vitals, progress notes, med list, prior imaging, this complex E/M and MDM in which I used to place his dialysis orders for today. Next HD is planned for Sunday, if he has not yet been discharged. I will be available tomorrow if needed, otherwise, my colleague Dr. Sharp will be on-call on Sunday morning. Thank you. (2) Acute and chronic respiratory failure with hypoxia Status: Acute per primary. (3) Leukocytosis Status: Acute Qualifiers: Leukocytosis type: bandemia Qualified Code(s): D72.825 - Bandemia (4) Urinary retention Status: Resolved Subjective Principal diagnosis: Pneumonia Interval history: Pt was s/e and he did not affirm CP or diarrhea or F/C. He reported having periodic episodes of dizziness and nausea that occurs in the AMs and improved with Zofran. He said that this has been happening for about 3 years (I'll defer this to his PCP for work up). He reported feeling otherwise relatively okay, and that he was looking forward to having the outpt HD arrangements completed and that hew as told he was just awaiting [facility] approval. Objective - Vital Signs Vital signs: Vital Signs Temp Pulse Resp BP Pulse Ox 03/09/18 07:11 98.1 F 76 18 137/69 93 03/09/18 04:00 98.1 F 80 17 120/56 96 03/09/18 00:28 98.1 F 68 17 128/68 99 03/08/18 21:15 98.0 F 71 18 123/72 96 03/08/18 20:11 18 96 03/08/18 16:04 98.7 F 78 19 132/75 97 03/08/18 10:43 98.8 F 92 18 94/52 91 03/08/18 09:15 20 94 Intake and Output 03/08/18 03/09/18 03/09/18 23:59 07:59 15:59 Output Total 350 / 350 Balance -350 / -350 Output: Urine 350 / 350 Other: Weight 141.974 kg Patient Weight 03/09/18 23:59 Weight 141.974 kg - General Appearance Exam: General appearance: Present: well-developed, well-nourished, obese EENT: Present: ATNC, hearing intact, vision intact Neck: Present: supple Respiratory: Present: clear Cardiology: Present: edema (Trace bilat lower extremity edema.), normal S1, normal S2 Dialysis Vascular Access: Venous Catheter (Tunneled Line, with dressing C/D/I) Gastrointestinal: Present: normoactive bowel sounds, no tenderness, no guarding Integumentary: Present: no rash, warm and dry Neurologic: Present: alert and oriented x3 Psychiatric: Present: mood/affect appropriate, cooperative - Lab 03/11/18 04:21 03/11/18 04:21 Most recent lab results Calcium 8.8 mg/dL (8.6-10.3) 03/09/18 04:22 Phosphorus 11.8 mg/dL (2.7-4.5) H 02/26/18 10:31 Magnesium 2.7 mg/dL (1.6-2.6) H 02/26/18 01:40 Urine Creatinine 72 mg/dL 02/27/18 08:30 Urine Sodium 41.6 mEq/L 02/27/18 08:30 Urine Total Protein 24 mg/dL (1-14) H 02/27/18 08:30 Consult Discharge Plan - Plan Instructions: Guaifenesin (By mouth), Hemodialysis (DC), Chronic Obstructive Pulmonary Disease (DC) Referrals: [facility] [Primary Care Provider] - (Please follow up in 5-7 days)
[2018-03-09] MEDS ORDERED: 0.9 % Sodium Chloride 1,000 ML ONE (08:57)
[2018-03-09] MEDS: Ipratropium/Albuterol Neb 3 ML IH PRN ×2 (10:46→20:27)
[2018-03-09] MEDS: Budesonide/Formoterol 160/4.5 1 PUFF INH IH SCH ×2 (10:46→20:27)
[2018-03-09] MEDS: Sennosides 8.6 MG TABLET PO SCH (21:55)
[2018-03-10 06:24] LABS: Hematocrit 35.5 % (37.5-50.1); Mean Corpuscular Hemoglobin 29.8 pg (28.0-33.3); Mean Corpuscular Volume 96.2 fL (83.0-100.0); Mean Platelet Volume 10.9 fL (9.4-12.4); Platelet Count 190 K/mcL (140-400); Red Blood Count 3.69 M/mcL (4.19-5.50); Red Cell Distribution Width 17.4 % (11.5-14.5); Segmented Neutrophils % 56.2 %
[2018-03-10 06:25] LABS: Basophils # 0.2 K/mcL (0.0-0.2); Basophils % 1.6 %; Eosinophils # 0.5 K/mcL (0.0-0.6); Eosinophils % 4.1 %; Immature Granulocytes % 7.5 % (0-4); Lymphocytes # 2.4 K/mcL (0.6-4.6); Lymphocytes % 20.1 %; Monocytes # 1.3 K/mcL (0.0-1.3); Monocytes % 10.5 %; Neutrophils # 6.7 K/mcL (1.6-8.9)
[2018-03-10 06:45] LABS: Calcium 8.6 mg/dL (8.6-10.3)
[2018-03-10 07:02] LABS: Platelet Estimate Normal (Normal)
[2018-03-10] MEDS: *HR* OxyCODONE/APAP 5/325 TABLET PO PRN ×3 (07:33→22:18)
[2018-03-10] MEDS: *HR* Heparin 5,000 UNIT/ML VIAL SQ SCH ×2 (07:34→16:12)
[2018-03-10] MEDS: Budesonide/Formoterol 160/4.5 1 PUFF INH IH SCH ×2 (07:39→22:37)
[2018-03-10] MEDS: Ipratropium/Albuterol Neb 3 ML IH PRN ×2 (07:40→22:40)
--- NOTE | 2018-03-10 08:10 | Internal Med Progress Note ---
Hospitalist Progress Note - Encounter Date of Encounter: 03/10/18 Time of Encounter: 08:00 - Exam Vitals: Temp Pulse Resp BP Pulse Ox 98.4 F 81 16 146/75 95 03/10/18 07:23 03/10/18 07:23 03/10/18 07:40 03/10/18 07:23 03/10/18 07:40 Exam: General: Morbidly obese. Alert and oriented x3. No acute distress. Head: atraumatic, normocephalic. 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 Eye: pupils equal and round. Sclera anicteric. EOMI. Mouth: oral mucosa moist. Normal oropharynx. Neck: supple. Trachea midline. Lungs: Mild diffuse wheezing in right lung. Left lung clear to auscultation. No rhonchi or rales. No respiratory distress. No accessory muscle use. Cardiovascular: Normal S1 & S2. No rubs or gallops. No JVD. Pulse regular. Abdomen: Morbidly obese. Normal bowel sounds. Nontender. No rigidity, no rebound. Extremities: 2+ pitting edema in left lower extremity. 1+ pitting edema in RLE. Venous stasis changes. No tenderness. No joint swelling or clubbing. Skin: warm, dry, and intact. - Assessment and Plan (1) Acute and chronic respiratory failure with hypoxia Current Visit: Yes Status: Acute Assessment and Plan: Likely secondary to pneumonia and volume overload. Improved. On 6L nasal cannula oxygen. Baseline 4-6L at home. Continue Duoneb and empirical abx. HD as per Nephro recommendations. Awaiting outpatient HD chair time to be approved by the [facility] for discharge planning (2) Acute on chronic kidney failure Current Visit: Yes Status: Acute Assessment and Plan: Developed ESRD. Temporary cath with hemodialysis. No improvement of renal function. Permacath placed for outpatient HD. Planned for hemodialysis today Awaiting outpatient HD chair time. Nephrology following. (3) Benign hypertension with chronic kidney disease, stage IV Current Visit: Yes Status: Chronic Assessment and Plan: Stable with current regimen (4) Urinary retention Current Visit: Yes Status: Resolved Assessment and Plan: Likely secondary to BPH. Ramires catheter removed. Urinating without issue. Continue Flomax. Need to follow up with urology as an outpatient for voiding trial. (5) Pneumonia Current Visit: Yes Status: Suspected Assessment and Plan: Suspect bacterial PNA. Nasal MRSA screen positive. Respiratory virus panel was negative. CT chest showed increased ground glass opacity in CANDACE. Suspicious for low grade lung carcinoma. Overlying pneumonia also possible. Blood cultures are negative. Zosyn discontinued due to WBC downtrending and patient clinically improved. Completed course of antibiotics (6) Hyperlipidemia Current Visit: Yes Status: Chronic Assessment and Plan: Continue statin (7) COPD (chronic obstructive pulmonary disease) Current Visit: Yes Status: Chronic Assessment and Plan: Presented with mild exacerbation. Improved. Cont Duoneb and O2. Steroids discontinued. - Time Spent with Patient Total time spent is greater than 50% in coordination of care (as documented) at patient's floor/unit and/or counseling patient: Internal Medicine: Result - Labs CBC & Chem 7: 03/10/18 05:43 03/10/18 05:43 Labs: Short CBC 03/10/18 Range/Units 05:43 WBC 11.9 H (4.3-11.1) K/mcL Hgb 11.0 L (12.9-16.9) g/dL Hct 35.5 L (37.5-50.1) % Plt Count 190 (140-400) K/mcL Neutrophils # 6.7 (1.6-8.9) K/mcL BMP 03/10/18 05:43 Sodium 138 Potassium 4.0 Chloride 98 Carbon Dioxide 29 BUN 22 Creatinine 3.44 H Glucose 95 Calcium 8.6 - ABG Interpretation ABG results: PT/INR, D-dimer PT 12.8 Seconds (9.4-12.1) H 02/26/18 10:31 Consult Discharge Plan - Plan Referrals: [facility] [Primary Care Provider] - (2) Acute on chronic kidney failure Qualifiers: Acute renal failure type: unspecified Chronic kidney disease stage: stage 4 ( severe) Qualified Code(s): N17.9 - Acute kidney failure, unspecified; N18.4 - Chronic kidney disease, stage 4 (severe) (5) Pneumonia Qualifiers: Pneumonia type: due to methicillin-resistant Staphylococcus aureus (MRSA) Laterality: right Lung location: upper lobe of lung Qualified Code(s): J15.212 - Pneumonia due to Methicillin resistant Staphylococcus aureus (6) Hyperlipidemia Qualifiers: Hyperlipidemia type: mixed hyperlipidemia Qualified Code(s): E78.2 - Mixed hyperlipidemia (7) COPD (chronic obstructive pulmonary disease) Qualifiers: COPD type: emphysema Emphysema type: panlobular Qualified Code(s): J43.1 - Panlobular emphysema
[2018-03-10] MEDS: Metoprolol XL (24 HR) Succ 50 MG TAB.ER.24H PO SCH (08:39)
[2018-03-10] MEDS: Ondansetron ODT 4 MG TAB.RAPDIS PO PRN (08:40)
[2018-03-10] MEDS: Cyanocobalamin (B-12) 1,000 MCG TABLET PO SCH (08:40)
[2018-03-10] MEDS: Aspirin Enteric Coated 325 MG Tablet PO SCH (08:40)
[2018-03-10] MEDS: Baclofen 10 MG TABLET PO PRN (12:39)
[2018-03-10] MEDS: Sennosides 8.6 MG TABLET PO SCH (22:17)
[2018-03-11 04:45] LABS: Hematocrit 31.5 % (37.5-50.1); Hemoglobin 9.8 g/dL (12.9-16.9); Mean Corpuscular HGB Conc 31.1 g/dL (31.6-35.5); Mean Corpuscular Hemoglobin 30.2 pg (28.0-33.3); Mean Corpuscular Volume 97.2 fL (83.0-100.0); Mean Platelet Volume 10.3 fL (9.4-12.4); Platelet Count 186 K/mcL (140-400); Red Blood Count 3.24 M/mcL (4.19-5.50); Red Cell Distribution Width 17.2 % (11.5-14.5)
[2018-03-11 05:05] LABS: Calcium 8.6 mg/dL (8.6-10.3); Potassium 4.1 mEq/L (3.5-5.1)
[2018-03-11] MEDS: *HR* Heparin 5,000 UNIT/ML VIAL SQ SCH (05:42)
[2018-03-11 05:54] LABS: Eosinophils # 0.6 K/mcL (0.0-0.6); Lymphocytes # 1.2 K/mcL (0.6-4.6); Monocytes # 0.6 K/mcL (0.0-1.3); Neutrophils # 7.8 K/mcL (1.6-8.9)
[2018-03-11 05:55] LABS: Platelet Estimate Normal (Normal)
[2018-03-11] MEDS: Baclofen 10 MG TABLET PO PRN (06:00)
--- NOTE | 2018-03-11 08:09 | Internal Med Progress Note ---
<Santos Lema - Last Filed: 03/11/18 13:04> Hospitalist Progress Note - Encounter Date of Encounter: 03/11/18 Time of Encounter: 09:40 - Subjective Interval History: Pt seen and examined at bedside. No acute events overnight. Resting comfortably in bed. Anxious to be discharged. Denies any fever, chills, chest pain, shortness of breath, abdominal pain, nausea, vomiting, headaches, numbness, or tingling. - Exam Vitals: Temp Pulse Resp BP Pulse Ox 98.2 F 74 19 143/72 98 03/11/18 07:02 03/11/18 07:02 03/11/18 07:02 03/11/18 07:02 03/11/18 07:02 Exam: General: Morbidly obese. Alert and oriented x3. No acute distress. Head: atraumatic, normocephalic. 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 Eye: PERRL. Sclera anicteric. EOMI. Mouth: oral mucosa moist. Normal oropharynx. Neck: supple. Trachea midline. Lungs: CTAB. No wheezes, rhonchi or rales. No respiratory distress. No accessory muscle use. Cardiovascular: RRR. S1 & S2 present. No rubs or gallops. No JVD. Abdomen: Morbidly obese. Normal bowel sounds. Soft, and nontender. No rigidity. Extremities: 2+ pitting edema in left lower extremity. 1+ pitting edema in RLE. Venous stasis changes. No tenderness. No joint swelling or clubbing. Skin: warm, dry, and intact. - Assessment and Plan (1) Acute on chronic kidney failure Current Visit: Yes Status: Acute Assessment and Plan: Developed ESRD. Temporary cath with hemodialysis. No improvement of renal function. Permacath placed for outpatient HD. Planned for hemodialysis today Awaiting outpatient HD chair time. Nephrology following. (2) Benign hypertension with chronic kidney disease, stage IV Current Visit: Yes Status: Chronic Assessment and Plan: Stable with current regimen (3) Urinary retention Current Visit: Yes Status: Resolved Assessment and Plan: Likely secondary to BPH. Ramires catheter removed. Urinating without issue. Continue Flomax. Need to follow up with urology as an outpatient for voiding trial. (4) Pneumonia Current Visit: Yes Status: Suspected Assessment and Plan: Suspect bacterial PNA. Nasal MRSA screen positive. Respiratory virus panel was negative. CT chest showed increased ground glass opacity in CANDACE. Suspicious for low grade lung carcinoma. Overlying pneumonia also possible. Blood cultures are negative. Zosyn discontinued due to WBC downtrending and patient clinically improved. Completed course of antibiotics (5) Hyperlipidemia Current Visit: Yes Status: Chronic Assessment and Plan: Continue home Zocor (6) COPD (chronic obstructive pulmonary disease) Current Visit: Yes Status: Chronic Assessment and Plan: Presented with mild exacerbation. Improved. Cont Duoneb and O2. Steroids discontinued. Continue Symbicort (7) Acute and chronic respiratory failure with hypoxia Current Visit: Yes Status: Acute Assessment and Plan: Likely secondary to pneumonia and volume overload. Improved. On 6L nasal cannula oxygen. Baseline 4-6L at home. Continue Duoneb and empirical abx. HD as per Nephro recommendations. Awaiting outpatient HD chair time to be approved by the [facility] for discharge planning DVT Prophylaxis: SQ Heparin - Time Spent with Patient Total time spent is greater than 50% in coordination of care (as documented) at patient's floor/unit and/or counseling patient: Internal Medicine: Result - Labs CBC & Chem 7: 03/11/18 04:21 03/11/18 04:21 Labs: Short CBC 03/11/18 Range/Units 04:21 WBC 10.3 (4.3-11.1) K/mcL Hgb 9.8 L (12.9-16.9) g/dL Hct 31.5 L (37.5-50.1) % Plt Count 186 (140-400) K/mcL Neutrophils # 7.8 (1.6-8.9) K/mcL BMP 03/11/18 04:21 Sodium 139 Potassium 4.1 Chloride 100 Carbon Dioxide 31 H BUN 35 H Creatinine 4.71 H Glucose 93 Calcium 8.6 - ABG Interpretation ABG results: PT/INR, D-dimer PT 12.8 Seconds (9.4-12.1) H 02/26/18 10:31 Consult Discharge Plan - Plan Referrals: [facility] [Primary Care Provider] - <Halle Chao - Last Filed: 03/11/18 13:28> Hospitalist Progress Note - Encounter Date of Encounter: 03/11/18 - Exam Vitals: Temp Pulse Resp BP Pulse Ox 98.3 F 77 18 109/44 94 03/11/18 10:52 03/11/18 10:52 03/11/18 10:52 03/11/18 10:52 03/11/18 10:52 - Assessment and Plan (1) Acute on chronic kidney failure Current Visit: Yes Status: Acute (2) Benign hypertension with chronic kidney disease, stage IV Current Visit: Yes Status: Chronic (3) Urinary retention Current Visit: Yes Status: Resolved (4) Pneumonia Current Visit: Yes Status: Suspected (5) Hyperlipidemia Current Visit: Yes Status: Chronic (6) COPD (chronic obstructive pulmonary disease) Current Visit: Yes Status: Chronic (7) Acute and chronic respiratory failure with hypoxia Current Visit: Yes Status: Acute - Time Spent with Patient Total time spent is greater than 50% in coordination of care (as documented) at patient's floor/unit and/or counseling patient: Internal Medicine: Result - Labs CBC & Chem 7: 03/11/18 04:21 03/11/18 04:21 Labs: Short CBC 03/11/18 Range/Units 04:21 WBC 10.3 (4.3-11.1) K/mcL Hgb 9.8 L (12.9-16.9) g/dL Hct 31.5 L (37.5-50.1) % Plt Count 186 (140-400) K/mcL Neutrophils # 7.8 (1.6-8.9) K/mcL BMP 03/11/18 04:21 Sodium 139 Potassium 4.1 Chloride 100 Carbon Dioxide 31 H BUN 35 H Creatinine 4.71 H Glucose 93 Calcium 8.6 - ABG Interpretation ABG results: PT/INR, D-dimer PT 12.8 Seconds (9.4-12.1) H 02/26/18 10:31 - Attending Attestation Seen and assessed. Agree with plan per resident Awaiting discharge pending [facility] approval of dialysis chair/ spot <Santos Lema A - Last Filed: 03/11/18 13:04> (1) Acute on chronic kidney failure Qualifiers: Acute renal failure type: unspecified Chronic kidney disease stage: stage 4 ( severe) Qualified Code(s): N17.9 - Acute kidney failure, unspecified; N18.4 - Chronic kidney disease, stage 4 (severe) (4) Pneumonia Qualifiers: Pneumonia type: due to methicillin-resistant Staphylococcus aureus (MRSA) Laterality: right Lung location: upper lobe of lung Qualified Code(s): J15.212 - Pneumonia due to Methicillin resistant Staphylococcus aureus (5) Hyperlipidemia Qualifiers: Hyperlipidemia type: mixed hyperlipidemia Qualified Code(s): E78.2 - Mixed hyperlipidemia (6) COPD (chronic obstructive pulmonary disease) Qualifiers: COPD type: emphysema Emphysema type: panlobular Qualified Code(s): J43.1 - Panlobular emphysema <Halle Chao A - Last Filed: 03/11/18 13:28> (1) Acute on chronic kidney failure Qualifiers: Acute renal failure type: unspecified Chronic kidney disease stage: stage 4 ( severe) Qualified Code(s): N17.9 - Acute kidney failure, unspecified; N18.4 - Chronic kidney disease, stage 4 (severe) (4) Pneumonia Qualifiers: Pneumonia type: due to methicillin-resistant Staphylococcus aureus (MRSA) Laterality: right Lung location: upper lobe of lung Qualified Code(s): J15.212 - Pneumonia due to Methicillin resistant Staphylococcus aureus (5) Hyperlipidemia Qualifiers: Hyperlipidemia type: mixed hyperlipidemia Qualified Code(s): E78.2 - Mixed hyperlipidemia (6) COPD (chronic obstructive pulmonary disease) Qualifiers: COPD type: emphysema Emphysema type: panlobular Qualified Code(s): J43.1 - Panlobular emphysema
[2018-03-11] MEDS: Metoprolol XL (24 HR) Succ 50 MG TAB.ER.24H PO SCH (08:49)
[2018-03-11] MEDS: Cyanocobalamin (B-12) 1,000 MCG TABLET PO SCH (08:49)
[2018-03-11] MEDS: Aspirin Enteric Coated 325 MG Tablet PO SCH (08:49)
--- NOTE | 2018-03-11 10:16 | Nephrology Progress Note ---
Date of Encounter: 03/11/18 Time of Encounter: 10:14 - Assessment and Plan (1) LÁZARO (acute kidney injury) Current Visit: Yes Status: Acute He has essentially progressed to ESRD. Last HD tx was Sunday. The patient confirms [facility] was [facility] and that he has been approved for [facility]. However, we do not have confirmation of a chair time. He is concerned if he leaves today he will not be able to wait to get HD until Sunday. Will discuss with Dr. Sharp and possible do a short treatment today, if we get confirmation he is leaving. (2) Urinary retention Current Visit: Yes Status: Resolved Appears resolved, spann cath is out. (3) Acute and chronic respiratory failure with hypoxia Current Visit: Yes Status: Acute per primary. (4) Leukocytosis Current Visit: Yes Status: Acute Resolved. Qualifiers: Leukocytosis type: bandemia Qualified Code(s): D72.825 - Bandemia Subjective Principal diagnosis: Pneumonia Interval history: Pt seen and examined. Denies CP/SOB. Denies n/v/d. Is anxious to get home. Objective - Vital Signs Vital signs: Vital Signs Temp Pulse Resp BP Pulse Ox 03/11/18 07:02 98.2 F 74 19 143/72 98 03/11/18 04:50 98.4 F 74 17 136/77 97 03/11/18 00:46 97.7 F 71 17 133/75 93 03/10/18 22:40 18 94 03/10/18 21:28 98.9 F 76 15 151/73 98 03/10/18 16:15 98.0 F 78 18 105/64 96 03/10/18 13:05 99.1 F 76 18 114/71 94 Intake and Output 03/10/18 03/11/18 03/11/18 23:59 07:59 15:59 Intake Total 120 / 120 Output Total 0 / 0 Balance 120 / 120 Intake: Oral 120 / 120 Output: Urine 0 / 0 Other: Meal Dinner Percent of Meal Consumed 70% # Voids 1 # Bowel Movements 1 Weight 144.5 kg Patient Weight 03/11/18 23:59 Weight 144.5 kg - General Appearance General appearance: Present: well-developed, well-nourished, obese EENT: Present: ATNC, hearing intact, vision intact Neck: Present: supple Respiratory: Present: clear Cardiology: Present: no edema, normal S1, normal S2 Dialysis Vascular Access: Venous Catheter (Tunneled Line, DRSG C/D/I) Gastrointestinal: Present: normoactive bowel sounds, no tenderness, no guarding Integumentary: Present: no rash, warm and dry Neurologic: Present: alert and oriented x3 Psychiatric: Present: mood/affect appropriate, cooperative - Lab 03/11/18 04:21 03/11/18 04:21 Most recent lab results Calcium 8.6 mg/dL (8.6-10.3) 03/11/18 04:21 Phosphorus 11.8 mg/dL (2.7-4.5) H 02/26/18 10:31 Magnesium 2.7 mg/dL (1.6-2.6) H 02/26/18 01:40 Urine Creatinine 72 mg/dL 02/27/18 08:30 Urine Sodium 41.6 mEq/L 02/27/18 08:30 Urine Total Protein 24 mg/dL (1-14) H 02/27/18 08:30 Consult Discharge Plan - Plan Referrals: [facility] [Primary Care Provider] -
[2018-03-11] MEDS: Ipratropium/Albuterol Neb 3 ML IH PRN (10:31)
[2018-03-11] MEDS: Budesonide/Formoterol 160/4.5 1 PUFF INH IH SCH (10:31)
[2018-03-11 15:23] VITALS: BP 137/69
--- NOTE | 2018-03-11 16:59 | Discharge Summary ---
<Tran Lemamckinley Hidalgo - Last Filed: 03/11/18 16:56> - NOTES TO OUTPATIENT PROVIDER Notes to Outpatient Provider: See hospital course Orders not resulted at time of discharge: Pending orders 03/12/18 04:00 BMP [Basic Metabolic Panel] AM 0400 Complete Blood Count [HEME] AM 0400 03/13/18 04:00 BMP [Basic Metabolic Panel] AM 0400 Complete Blood Count [HEME] AM 0400 Date of Encounter: 03/11/18 Time of Encounter: 16:57 - Discharge Diagnosis (1) Acute on chronic kidney failure Priority: Primary Status: Acute Assessment and Plan: Developed ESRD. Temporary cath with hemodialysis. No improvement of renal function. Permacath placed for outpatient HD. Planned for hemodialysis today Awaiting outpatient HD chair time. Nephrology following. Qualifiers: Acute renal failure type: unspecified Chronic kidney disease stage: stage 4 (severe) Qualified Code(s): N17.9 - Acute kidney failure, unspecified; N18.4 - Chronic kidney disease, stage 4 (severe) (2) Benign hypertension with chronic kidney disease, stage IV Priority: Secondary Status: Chronic Assessment and Plan: Stable with current regimen (3) Urinary retention Priority: Secondary Status: Resolved Assessment and Plan: Likely secondary to BPH. Ramires catheter removed. Urinating without issue. Continue Flomax. Need to follow up with urology as an outpatient for voiding trial. (4) Pneumonia Priority: Secondary Status: Suspected Assessment and Plan: Suspect bacterial PNA. Nasal MRSA screen positive. Respiratory virus panel was negative. CT chest showed increased ground glass opacity in CANDACE. Suspicious for low grade lung carcinoma. Overlying pneumonia also possible. Blood cultures are negative. Zosyn discontinued due to WBC downtrending and patient clinically improved. Completed course of antibiotics Qualifiers: Pneumonia type: due to methicillin-resistant Staphylococcus aureus (MRSA) Laterality: right Lung location: upper lobe of lung Qualified Code(s): J15.212 - Pneumonia due to Methicillin resistant Staphylococcus aureus (5) Hyperlipidemia Priority: Secondary Status: Chronic Assessment and Plan: Continue home Zocor Qualifiers: Hyperlipidemia type: mixed hyperlipidemia Qualified Code(s): E78.2 - Mixed hyperlipidemia (6) COPD (chronic obstructive pulmonary disease) Priority: Secondary Status: Chronic Assessment and Plan: Presented with mild exacerbation. Improved. Cont Duoneb and O2. Steroids discontinued. Continue Symbicort Qualifiers: COPD type: emphysema Emphysema type: panlobular Qualified Code(s): J43.1 - Panlobular emphysema (7) Acute and chronic respiratory failure with hypoxia Priority: Secondary Status: Acute Assessment and Plan: Likely secondary to pneumonia and volume overload. Improved. On 6L nasal cannula oxygen. Baseline 4-6L at home. Continue Duoneb and empirical abx. HD as per Nephro recommendations. Awaiting outpatient HD chair time to be approved by the [place] for discharge planning Hospital course: Mr. Madrid is a 67 year old male with a history of CKD IV, HTN, and PAD who presented to the ER at the [facility] initially with complaints of generalized weakness. He was evaluated in the ER and was noted to have worsening renal function. He was sent home at that time but did return to the ER with complaints of worsening symptoms. He did have decreased urine output. Also was having worsening swelling and some shortness of breath with exertion. He had also been having dark colored sputum and cough. He was admitted to [facility] on 02/26 for Pneumonia, COPD exacerbation and volume overload with LÁZARO on CKD-4. Pt started on HD through temporary HD cath. He did have significant urinary retention, requiring Ramires catheter placement. Retroperitoneal ultrasound showed unremarkable kidneys however he does have significant distention of the urinary bladder with BPH. 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, nurse, case management, car sales consultant - Time Spent with Patient Total time spent providing and/or coordinating discharge services: - Discharge Medications Prescriptions: GuaiFENesin ER [Mucinex] 600 mg PO BID PRN 30 Days #30 tbbp.12hr PRN Reason: Congestion Home Medications: Allopurinol [Zyloprim 100 MG] 200 mg PO DAILY 09/28/15 [History] Baclofen [Lioresal] 15 mg PO TID PRN 09/28/15 [History] Budesonide/Formoterol 160/4.5 [Symbicort 160/4.5] 2 puff IH BIDR 09/28/15 [ History] Cetirizine HCl [Zyrtec] 10 mg PO DAILY 09/28/15 [History] Meclizine HCl [Verticalm] 12.5 mg PO BID PRN 09/28/15 [History] OxyCODONE/APAP 5/325 [Percocet 5/325 MG] 1 tab PO Q6HR PRN 09/28/15 [History] Pantoprazole Sodium [Protonix] 40 mg PO BID 09/28/15 [History] Simvastatin [Zocor] 40 mg PO DAILY 09/28/15 [History] Albuterol Sulfate [Proair Hfa] 2 puff IH Q4H PRN 12/14/15 [History] Aspirin Enteric Coated [Aspirin EC] 325 mg PO DAILY 12/14/15 [History] Ondansetron [Zofran] 8 mg PO BID PRN 12/14/15 [History] Calcitriol 0.5 mcg PO DAILY 02/26/18 [History] Cyanocobalamin (Vitamin B-12) [Vitamin B12] 1,000 mcg PO DAILY 02/26/18 [History ] Metoprolol Succinate [Kapspargo Sprinkle] 50 mg PO DAILY 02/26/18 [History] Sennosides [Senna] 2 tab PO HS 02/26/18 [History] Tiotropium Jennings [Spiriva Respimat] 2 puff IH DAILY 02/26/18 [History] GuaiFENesin ER [Mucinex] 600 mg PO BID PRN 30 Days #30 tbbp.12hr 03/11/18 [Rx] Allergies/Adverse Reactions: 3 Allergy/AdvReac Type Severity Reaction Status Date / Time NSAIDS (Non-Steroidal Allergy See Verified 09/28/15 20:55 Anti-Inflamma Comments Date of admission: 02/26/18 04:49 [facility] care physician: [facility] Consults: 02/26/18 07:43 Consult to Pulmonology [CONS] Routine Consulting Provider: Pulm Crit Care & Sleep Nabila Reason for Consult: Right Apical lung lesion Time Notified: 07:44 Call Completed: Yes 02/26/18 11:26 Consult to Interventional Radiology [CONS] Routine Consulting Provider: Radiology Interventional Cols Reason for Consult: Temp IJ HD catheter placement Call Completed: No 02/26/18 16:15 Consult to Dialysis [CONS] ONCE 02/27/18 08:45 Consult to Dialysis [CONS] ONCE 02/28/18 08:15 Consult to Dialysis [CONS] ONCE 02/28/18 13:27 Consult to Urology [CONS] Routine Consulting Provider: Urology Echola Reason for Consult: LÁZARO on CKD, urinary retention, BPH Call Completed: Yes 03/02/18 09:30 Consult to Dialysis [CONS] ONCE 03/04/18 07:47 Consult to Interventional Radiology [CONS] Routine Consulting Provider: Radiology Interventional Cols Reason for Consult: Please evaluate for placement of a Permacath Call Completed: No Consult to Medical Instructor [CONS] Routine Reason for SW Consult: Please arrange for outpt HD unit. 03/05/18 07:00 Consult to Dialysis [CONS] ONCE 03/05/18 13:14 Consult to Occupational Therapy [CONS] Routine Comment: Evaluate, develop and implement POC Reason for Consult: Extended hospitalization stay, high risk of deconditioning. Does patient have active BEDREST order?: No Is patient medically & hemodynamically stable?: Yes 03/05/18 13:34 Consult to Physical Therapy [CONS] Routine Comment: Evaluate, develop and implement POC Reason for Consult: deconditioning Does patient have active BEDREST order?: No Is patient medically & hemodynamically stable?: Yes Patient assessed for mobility or mobilized this visit?: No 03/07/18 07:30 Consult to Dialysis [CONS] ONCE 03/09/18 08:45 Consult to Dialysis [CONS] ONCE Discharging clinician: Santos Duke Constitutional Vitals: Temp Pulse Resp BP Pulse Ox 98.6 F 78 17 137/69 95 03/11/18 15:22 03/11/18 15:22 03/11/18 15:22 03/11/18 15:22 03/11/18 15:22 General appearance: Present: cooperative, A&O X 3, morbidly obese, obese, answers questions appropriately Exam: General: Morbidly obese. Alert and oriented x3. No acute distress. Head: atraumatic, normocephalic. 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 Eye: PERRL. Sclera anicteric. EOMI. Mouth: oral mucosa moist. Normal oropharynx. Neck: supple. Trachea midline. Lungs: CTAB. No wheezes, rhonchi or rales. No respiratory distress. No accessory muscle use. Cardiovascular: RRR. S1 & S2 present. No rubs or gallops. No JVD. Abdomen: Morbidly obese. Normal bowel sounds. Soft, and nontender. No rigidity. Extremities: 2+ pitting edema in left lower extremity. 1+ pitting edema in RLE. Venous stasis changes. No tenderness. No joint swelling or clubbing. Skin: warm, dry, and intact. - Patient Status Disposition: Home Health Service Condition: Fair Functional capacity at discharge: wheelchair bound Overall status at discharge: patient is progressing back to baseline - Discharge Instructions Instructions: Guaifenesin (By mouth), Hemodialysis (DC), Chronic Obstructive Pulmonary Disease (DC) Follow Up With: [facility] [Primary Care Provider] - (Please follow up in 5-7 days) - Diet and Activity Activity: as per physical therapy, resume usual activities as tolerated Diet: low salt diet <Folaranmi,Supo A - Last Filed: 03/12/18 10:04> Date of Encounter: 03/12/18 - Discharge Diagnosis (1) Acute on chronic kidney failure Status: Acute Qualifiers: Acute renal failure type: unspecified Chronic kidney disease stage: stage 4 (severe) Qualified Code(s): N17.9 - Acute kidney failure, unspecified; N18.4 - Chronic kidney disease, stage 4 (severe) (2) Benign hypertension with chronic kidney disease, stage IV Status: Chronic (3) Urinary retention Status: Resolved (4) Pneumonia Status: Suspected Qualifiers: Pneumonia type: due to methicillin-resistant Staphylococcus aureus (MRSA) Laterality: right Lung location: upper lobe of lung Qualified Code(s): J15.212 - Pneumonia due to Methicillin resistant Staphylococcus aureus (5) Hyperlipidemia Status: Chronic Qualifiers: Hyperlipidemia type: mixed hyperlipidemia Qualified Code(s): E78.2 - Mixed hyperlipidemia (6) COPD (chronic obstructive pulmonary disease) Status: Chronic Qualifiers: COPD type: emphysema Emphysema type: panlobular Qualified Code(s): J43.1 - Panlobular emphysema (7) Acute and chronic respiratory failure with hypoxia Status: Acute Hospital course: Mr. Madrid is a 67 year old male - Time Spent with Patient Total time spent providing and/or coordinating discharge services: Date of admission: 02/26/18 04:49 Primary care physician: PCP [place] Consults: 02/26/18 07:43 Consult to Pulmonology [CONS] Routine Consulting Provider: Pulm Crit Care & Sleep Echola Reason for Consult: Right Apical lung lesion Time Notified: 07:44 Call Completed: Yes 02/26/18 11:26 Consult to Interventional Radiology [CONS] Routine Consulting Provider: Radiology Interventional Cols Reason for Consult: Temp IJ HD catheter placement Call Completed: No 02/26/18 16:15 Consult to Dialysis [CONS] ONCE 02/27/18 08:45 Consult to Dialysis [CONS] ONCE 02/28/18 08:15 Consult to Dialysis [CONS] ONCE 02/28/18 13:27 Consult to Urology [CONS] Routine Consulting Provider: Urology Nabila Reason for Consult: LÁZARO on CKD, urinary retention, BPH Call Completed: Yes 03/02/18 09:30 Consult to Dialysis [CONS] ONCE 03/04/18 07:47 Consult to Interventional Radiology [CONS] Routine Consulting Provider: Radiology Interventional Cols Reason for Consult: Please evaluate for placement of a Permacath Call Completed: No Consult to Medical Instructor [CONS] Routine Reason for SW Consult: Please arrange for outpt HD unit. 03/05/18 07:00 Consult to Dialysis [CONS] ONCE 03/05/18 13:14 Consult to Occupational Therapy [CONS] Routine Comment: Evaluate, develop and implement POC Reason for Consult: Extended hospitalization stay, high risk of deconditioning. Does patient have active BEDREST order?: No Is patient medically & hemodynamically stable?: Yes 03/05/18 13:34 Consult to Physical Therapy [CONS] Routine Comment: Evaluate, develop and implement POC Reason for Consult: deconditioning Does patient have active BEDREST order?: No Is patient medically & hemodynamically stable?: Yes Patient assessed for mobility or mobilized this visit?: No 03/07/18 07:30 Consult to Dialysis [CONS] ONCE 03/09/18 08:45 Consult to Dialysis [CONS] ONCE - Constitutional Vitals: Temp Pulse Resp BP Pulse Ox 98.6 F 78 17 137/69 95 03/11/18 15:22 03/11/18 15:22 03/11/18 15:22 03/11/18 15:22 03/11/18 15:22 - Attending Attestation Seen and assessed. Agree with plan per resident 67yoM managed for pneumonia and LÁZARO on CKD now on dialysis EXam Resp. Breath sounds improved. CTAB Plan Pneumonia and CKD now on dialysis. Completed course of antibiotics and improved. Now on dialysis and renal following. Agree with discharge summary per resident
== END 2018-03-11 18:20 | disposition home health service (06) | DRG 682 ==
LOC: EMEROOARM 22:44 → SUATTDRO 02-26 04:49 → 2ANU 02-26 04:49
PROVIDERS: ADMIT Internal Medicine; ATTEND Student in an Organized Health Care Education/Training Program
PROC: IRPERMA (2018-03-05 12:00)

== ENCOUNTER 2018-03-14 12:01 | Inpatient (IN) ==
[2018-03-14] MEDS ORDERED: Dextrose Gel 15 GM/37.5 ML TUBE PO PRN ×2 (12:08)
[2018-03-14] MEDS ORDERED: D5% in Water 1,000 ML IVC PRN (12:08)
[2018-03-14] MEDS ORDERED: *HR* Dextrose 50 % in Water (Syg) 50 ML SYRINGE IVP PRN (12:08)
[2018-03-14] MEDS: Insulin LISPRO 300 UNITS/3 ML VIAL SQ SCH ×3 (12:30→20:27)
--- NOTE | 2018-03-14 12:49 | Nephrology Consult Note ---
Date of Encounter: 03/14/18 Time of Encounter: 12:46 Assessment and Plan (1) LÁZARO (acute kidney injury) Current Visit: No Status: Acute Labwork not available since [employer] has been down all night. CBC and BMP ordered stat. HD ordered for today. Avoid nephrotoxins and renal dose all medications. (2) Acute and chronic respiratory failure with hypoxia Current Visit: No Status: Acute Per primary. Continue Bipap. (3) COPD with exacerbation Current Visit: No Status: Acute Per primary. History of Present Illness - Reason for Consult Consult date: 03/14/18 Acute Kidney Injury, end stage renal disease Requesting physician: Power Roldan - Chief Complaint difficulty in breathing - History of Present Illness Mr. Madrid is a 67 year old male who presented to [facility] ED with difficulty in breathing, it started yesterday afternoon and has progressively gotten worse. He is on home oxygen at 4-6 Liters and when he checked his SPO2 this morning it was in the 40s. EMS was called and he was transported to [facility]. He was then transferred here. He is now on Bipap. Information is limited due to the inability to remove his Bipap. Mr. Madrid was just discharged from this facility on Sunday with LÁZARO dependent HD, and it seemed that all paperwork was completed before d/c, but he tells me that Chris Espino did not [facility], and so he had to wait until Sunday (tomorrow). Unfortunately, he developed difficulty in breathing, so HD will be completed today. He does assure me that a chair time has been confirmed for Sunday at 1130. I will place a social work administrator consult to be sure. Past Med Surg Social Fam HX - Past Medical History Medical history: arthritis, CHF, COPD, GERD, hyperlipidemia, hypertension, peripheral artery disease, renal disease Additional medical history: sleep apnea Psychiatric history: no psych history - Past Surgical History Surgical History: other Additional surgical history: dental - bronchoscopy x 2 - egd - right femoral stent - spine stimulator - Social History Smoking Status: Former smoker Smokeless Tobacco Status: No Alcohol use: occasionally Drug use: none - Family History Mother Adopted: No Family Member Ethnicity: Non- Living Status: Hx Family Cardiac Disorders: No Hx Family Respiratory Disorders: Yes (copd) Hx Family Cancer: Yes (ovarian cancer) Hx Family GI Disorders: No Hx Family Endocrine Disorder: No Hx Family Neuromuscular Disorders: No Hx Family Neurologic Disorders: No Hx Family HEENT Disorders: No Hx Family Autoimmune Disorders: No Medications and Allergies Allopurinol [Zyloprim 100 MG] 200 mg PO DAILY 09/28/15 [History] Baclofen [Lioresal] 15 mg PO TID PRN 09/28/15 [History] Budesonide/Formoterol 160/4.5 [Symbicort 160/4.5] 2 puff IH BIDR 09/28/15 [History] Cetirizine HCl [Zyrtec] 10 mg PO DAILY 09/28/15 [History] Meclizine HCl [Verticalm] 12.5 mg PO BID PRN 09/28/15 [History] OxyCODONE/APAP 5/325 [Percocet 5/325 MG] 1 tab PO Q6HR PRN 09/28/15 [History] Pantoprazole Sodium [Protonix] 40 mg PO BID 09/28/15 [History] Simvastatin [Zocor] 40 mg PO DAILY 09/28/15 [History] Albuterol Sulfate [Proair Hfa] 2 puff IH Q4H PRN 12/14/15 [History] Aspirin Enteric Coated [Aspirin EC] 325 mg PO DAILY 12/14/15 [History] Ondansetron [Zofran] 8 mg PO BID PRN 12/14/15 [History] Calcitriol 0.5 mcg PO DAILY 02/26/18 [History] Cyanocobalamin (Vitamin B-12) [Vitamin B12] 1,000 mcg PO DAILY 02/26/18 [History] Metoprolol Succinate [Kapspargo Sprinkle] 50 mg PO DAILY 02/26/18 [History] Sennosides [Senna] 2 tab PO HS 02/26/18 [History] Tiotropium Dewitt [Spiriva Respimat] 2 puff IH DAILY 02/26/18 [History] GuaiFENesin ER [Mucinex] 600 mg PO BID PRN 30 Days #30 tbbp.12hr 03/11/18 [Rx] Allergy/AdvReac Type Severity Reaction Status Date / Time NSAIDS (Non-Steroidal Allergy See Verified 09/28/15 20:55 Anti-Inflamma Comments Review of Systems All Systems review (narrative): The remainder of the systems are negative. Constitutional: fatigue, no chills, no fever(s) Cardiovascular: dyspnea, dyspnea on exertion, edema, no chest pain Respiratory: dyspnea, no cough, no wheezing Gastrointestinal: no change in bowel habits, no diarrhea, no nausea, no vomiting Exam - General Appearance General appearance: well-developed, well-nourished, obese EENT: ATNC, hearing intact, vision intact Neck: supple Respiratory: clear Cardiology: edema (+1 pitting edema noted to bilat lower extremities.), normal S1, normal S2 - Dialysis Access Dialysis Vascular Access: Venous Catheter (Tunneled Line, DRSG C/D/I) Gastrointestinal: normoactive bowel sounds, no tenderness, no guarding Integumentary: no rash, warm and dry Neurologic: alert and oriented x3 Psychiatric: mood/affect appropriate, cooperative Results - Lab Results 03/14/18 12:19 Consult Discharge Plan - Plan Referrals: NONE,PCP [Primary Care Provider] -
[2018-03-14] MEDS ORDERED: Naloxone 0.4 MG/ML INJ IVP PRN (13:01)
--- NOTE | 2018-03-14 13:06 | Event Note ---
Date of Encounter: 03/14/18 Time of Encounter: 13:05 H&P dictated. On patient chart.
[2018-03-14 13:46] LABS: Hematocrit 34.8 % (37.5-50.1); Hemoglobin 10.8 g/dL (12.9-16.9); Mean Corpuscular Hemoglobin 29.8 pg (28.0-33.3); Mean Corpuscular Volume 96.1 fL (83.0-100.0); Mean Platelet Volume 10.6 fL (9.4-12.4); Platelet Count 282 K/mcL (140-400); Red Blood Count 3.62 M/mcL (4.19-5.50); Red Cell Distribution Width 16.7 % (11.5-14.5)
[2018-03-14 14:55] LABS: Troponin I < 0.03 ng/mL (< 0.04)
[2018-03-14 15:09] LABS: BUN/Creatinine Ratio 12 (6-26); Blood Urea Nitrogen 55 mg/dL (8-23); Calcium 9.9 mg/dL (8.6-10.3); Carbon Dioxide 25 mEq/L (23-29); Chloride 108 mEq/L (98-107); Glucose 154 mg/dL (70-105); Magnesium 1.7 mg/dL (1.6-2.6); Osmolality,Calculated 306 (280-300); Phosphorous 4.6 mg/dL (2.7-4.5); Potassium 4.2 mEq/L (3.5-5.1); Sodium 139 mEq/L (136-145); eGFR For Non-African Americans 13 (> 60)
[2018-03-14] MEDS ORDERED: Furosemide 40 MG/4 ML VIAL IV ONE (15:25)
[2018-03-14] MEDS ORDERED: MethylPREDNISolone 40 MG/ML VIAL IVP ONE ×2 (15:25)
[2018-03-14] MEDS ORDERED: Metoprolol XL (24 HR) Succ 25 MG TAB.ER.24H PO ONE ×2 (15:25)
[2018-03-14] MEDS ORDERED: CefTRIAXone 1,000 MG VIAL IVP ONE ×2 (15:25)
[2018-03-14] MEDS ORDERED: Insulin LISPRO 300 UNITS/3 ML VIAL SQ ONE (15:25)
[2018-03-14] MEDS ORDERED: D5% in Water 250 ML IV BAG IV ONE (15:25)
[2018-03-14] MEDS ORDERED: *HR* Water for inj. (Sterile) 20 ML VIAL IV ONE ×2 (15:25)
[2018-03-14] MEDS ORDERED: Azithromycin 500 MG VIAL IVPB ONE (15:25)
[2018-03-14] MEDS: Ipratropium/Albuterol Neb 3 ML IH SCH ×3 (16:09→23:31)
[2018-03-14] MEDS: MethylPREDNISolone 40 MG/ML VIAL IVP SCH (17:49)
[2018-03-14] MEDS: Furosemide 40 MG/4 ML VIAL IVP SCH (17:49)
[2018-03-14] MEDS: *HR* Heparin 5,000 UNIT/ML VIAL SQ SCH (17:49)
[2018-03-14] MEDS: traMADol 50 MG TABLET PO PRN (17:49)
[2018-03-14 17:57] LABS: INR 1.1; Prothrombin Time 12.6 Seconds (9.4-12.1)
[2018-03-14 17:59] LABS: Activated Partial Thrombo Time 38.8 Seconds (26.0-36.0)
[2018-03-15 01:19] LABS: Hematocrit 37.8 % (37.5-50.1); Mean Corpuscular HGB Conc 31.7 g/dL (31.6-35.5); Mean Corpuscular Hemoglobin 29.9 pg (28.0-33.3); Mean Platelet Volume 10.2 fL (9.4-12.4); Platelet Count 292 K/mcL (140-400); Red Blood Count 4.02 M/mcL (4.19-5.50); Red Cell Distribution Width 16.5 % (11.5-14.5)
[2018-03-15 01:38] LABS: Calcium 10.3 mg/dL (8.6-10.3); Potassium 4.3 mEq/L (3.5-5.1); Troponin I 0.03 ng/mL (< 0.04)
[2018-03-15] MEDS: Ipratropium/Albuterol Neb 3 ML IH SCH ×6 (03:02→23:20)
[2018-03-15] MEDS: MethylPREDNISolone 40 MG/ML VIAL IVP SCH (05:53)
[2018-03-15] MEDS ORDERED: Ondansetron ODT 4 MG TAB.RAPDIS PO PRN (06:03)
[2018-03-15] MEDS: *HR* Heparin 5,000 UNIT/ML VIAL SQ SCH ×2 (07:06→16:59)
[2018-03-15] MEDS: cefTRIAXone 1,000 MG in Water for inj. (sterile) 20 ML 10 ML IVP SCH (07:54)
[2018-03-15] MEDS: Azithromycin 500 MG in D5% in Water 250 ML IVPB SCH (07:55)
[2018-03-15] MEDS: Furosemide 40 MG/4 ML VIAL IVP SCH ×2 (07:55→17:00)
[2018-03-15] MEDS: Insulin LISPRO 300 UNITS/3 ML VIAL SQ SCH ×4 (07:56→20:33)
[2018-03-15] MEDS ORDERED: Baclofen 10 MG TABLET PO PRN (08:45)
[2018-03-15] MEDS ORDERED: Metoprolol XL (24 HR) Succ 25 MG TAB.ER.24H PO SCH (09:00)
[2018-03-15] MEDS ORDERED: Pregabalin 50 MG CAPSULE PO SCH (09:00)
[2018-03-15] MEDS: Loratadine 10 MG TABLET PO SCH (09:12)
[2018-03-15] MEDS: Cholecalciferol (D-3) 1,000 UNIT TABLET PO SCH (09:12)
[2018-03-15] MEDS: Cyanocobalamin (B-12) 1,000 MCG TABLET PO SCH (09:12)
[2018-03-15] MEDS: Magnesium Oxide 400 MG TABLET PO SCH (09:12)
[2018-03-15] MEDS: Aspirin Enteric Coated 325 MG Tablet PO SCH (09:12)
[2018-03-15] MEDS: traMADol 50 MG TABLET PO PRN (09:20)
--- NOTE | 2018-03-15 10:02 | Nephrology Progress Note ---
Addendum entered and electronically signed by Kash Sharp MD 03/15/18 21:43: I examined this patient and discussed the medical decision-making with YOAN Terrazas. I agree with the documented findings, disposition and treatment plan as described except to the extent set forth below . Original Note: Date of Encounter: 03/15/18 Time of Encounter: 10:00 - Assessment and Plan (1) LÁZARO (acute kidney injury) Current Visit: No Status: Acute HD completed yesterday. Avoid nephrotoxins and renal dose all medications. Chair [facility] is MWF at [facility]. Social service consult ordered to ensure all paperwork has been completed. (2) Acute and chronic respiratory failure with hypoxia Current Visit: No Status: Acute Per primary. Continue supplemental oxygen. (3) COPD with exacerbation Current Visit: No Status: Acute Per primary. Subjective Principal diagnosis: CHF/COPD Interval history: Pt seen and examined, doing well. On n/c eating breakfast. Objective - Vital Signs Vital signs: Vital Signs Temp Pulse Resp BP Pulse Ox 03/15/18 07:40 14 94 03/15/18 07:31 98 F 73 14 97/77 94 03/15/18 04:15 97.9 F 70 18 114/71 97 03/15/18 03:03 14 98 03/15/18 00:19 98.2 F 84 24 111/57 98 03/14/18 23:31 12 96 03/14/18 20:22 17 95 03/14/18 19:32 99.5 F 88 22 121/65 99 03/14/18 16:40 98.9 F 91 18 127/70 92 Intake and Output 03/14/18 03/15/18 03/15/18 23:59 07:59 15:59 Intake Total 240 / 240 240 / 240 120 / 120 Output Total 550 / 550 Balance -310 / -310 240 / 240 120 / 120 Intake: Oral 240 / 240 240 / 240 120 / 120 Output: Catheter 550 / 550 Other: Meal Dinner Breakfast Percent of Meal Consumed 100% 100% Weight 137.4 kg Blood Glucose* 123 112 Patient Weight 03/15/18 23:59 Weight 137.4 kg - General Appearance General appearance: Present: well-developed, well-nourished, obese EENT: Present: ATNC, hearing intact, vision intact Neck: Present: supple Respiratory: Present: clear Cardiology: Present: edema (+1 pitting edema noted to bilat lower extremities.), normal S1, normal S2 Dialysis Vascular Access: Venous Catheter (Tunneled Line, DRSG C/D/I) Gastrointestinal: Present: normoactive bowel sounds, no tenderness, no guarding Integumentary: Present: no rash, warm and dry Neurologic: Present: alert and oriented x3 Psychiatric: Present: mood/affect appropriate, cooperative - Lab 03/15/18 01:05 03/15/18 01:05 Most recent lab results Calcium 10.3 mg/dL (8.6-10.3) 03/15/18 01:05 Phosphorus 4.6 mg/dL (2.7-4.5) H 03/14/18 12:19 Magnesium 1.7 mg/dL (1.6-2.6) 03/14/18 12:19 Consult Discharge Plan - Plan [facility]errals: [facility] [Primary Care Provider] - (This patient is a Home Based, which means the doctor will come to the home to see the patient. The family will have to call when he gets home.)
[2018-03-15] MEDS: Budesonide/Formoterol 160/4.5 1 PUFF INH IH SCH ×2 (11:01→20:42)
--- NOTE | 2018-03-15 13:49 | Internal Med Progress Note ---
Hospitalist Progress Note - Encounter Date of Encounter: 03/15/18 Time of Encounter: 13:47 - Subjective Interval History: Evaluated patient earlier today. Doing well overall. His breathing status has improved. Denies any chest pain or palpitations. No nausea or vomiting. Had dialysis yesterday and is feeling better since then. - Exam Vitals: Temp Pulse Resp BP Pulse Ox 98.2 F 77 16 130/58 96 03/15/18 11:01 03/15/18 11:01 03/15/18 11:01 03/15/18 11:01 03/15/18 11:01 Exam: General: Patient is alert, no acute distress, oriented x 3 Respiratory: Decreased air entry bilaterally. Cardiovascular: Regular rate and rhythm. s1 and s2 normal No clicks, rubs, gallops, or murmurs. Bilateral pedal edema Abdomen: Abdomen is soft, distended, nontender. Bowel sounds are present Musculoskeletal: Spontaneously moving all extremities Skin: warm, dry, intact. Neuro: Alert oriented x 3 normal cranial nerves, no focal deficits - Assessment and Plan (1) Acute and chronic respiratory failure with hypoxia Current Visit: Yes Status: Acute Assessment and Plan: Due to volume overload and underlying COPD. Patient is currently on 6 L nasal cannula. We will wean as tolerated. (2) End stage renal disease Current Visit: Yes Status: Acute Assessment and Plan: On hemodialysis. Dialyzed yesterday. We will continue dialysis per Sunday schedule after discharge. (3) COPD with exacerbation Current Visit: Yes Status: Acute Assessment and Plan: Continue treatment with steroids, bronchodilators. Patient is also receiving antibiotics but his chest x-ray was negative. We will de-escalate antibiotics to oral regimen tomorrow. DVT Prophylaxis: On subcutaneous heparin - Time Spent with Patient Total time spent is greater than 50% in coordination of care (as documented) at patient's floor/unit and/or counseling patient: Internal Medicine: Result - Labs CBC & Chem 7: 03/15/18 01:05 03/15/18 01:05 Labs: Short CBC 03/14/18 03/15/18 Range/Units 12: 01:05 WBC 10.4 13.8 H (4.3-11.1) K/mcL Hgb 10.8 L 12.0 L (12.9-16.9) g/dL Hct 34.8 L 37.8 (37.5-50.1) % Plt Count 282 D 292 (140-400) K/mcL BMP 03/14/18 03/15/18 12:19 01:05 Sodium 139 137 Potassium 4.2 4.3 Chloride 108 H 98 Carbon Dioxide 25 26 BUN 55 H 36 H Creatinine 4.50 H 4.02 H Glucose 154 H 144 H Calcium 9.9 10.3 Cardiac Enzymes 03/14/18 03/14/18 03/15/18 Range/Units 12:19 19:07 01:05 Troponin I < 0.03 0.03 0.03 (< 0.04) ng/mL - ABG Interpretation ABG results: PT/INR, D-dimer PT 12.6 Seconds (9.4-12.1) H 03/14/18 17:04 - Impressions Impressions Chest X-Ray 03/14/18 13:04 IMPRESSION: Suspect mild cardiomegaly and vascular congestion. Lung bases are not entirely included. Right IJ tunneled dialysis catheter in good position. D/ / Obed Cervantes MD / Oebd Cervantes MD Interpreting Provider: Obed Cervantes MD Consult Discharge Plan - Plan Referrals: [facility] [Primary Care Provider] - (This patient is a Home Based, which means the doctor will come to the home to see the patient. The family will have to call when he gets home.)
[2018-03-15] MEDS: *HR* OxyCODONE/APAP 5/325 TABLET PO PRN ×2 (14:11→20:39)
[2018-03-15] MEDS ORDERED: Sennosides 8.6 MG TABLET PO SCH (21:00)
[2018-03-16] MEDS: Ipratropium/Albuterol Neb 3 ML IH SCH ×4 (04:28→15:23)
[2018-03-16 05:19] LABS: Hematocrit 32.2 % (37.5-50.1); Hemoglobin 10.6 g/dL (12.9-16.9); Mean Corpuscular HGB Conc 32.9 g/dL (31.6-35.5); Mean Corpuscular Hemoglobin 30.6 pg (28.0-33.3); Mean Corpuscular Volume 93.1 fL (83.0-100.0); Mean Platelet Volume 10.6 fL (9.4-12.4); Platelet Count 287 K/mcL (140-400); Red Blood Count 3.46 M/mcL (4.19-5.50); Red Cell Distribution Width 17.1 % (11.5-14.5)
[2018-03-16] MEDS: *HR* Heparin 5,000 UNIT/ML VIAL SQ SCH (05:32)
[2018-03-16 05:39] LABS: Calcium 9.7 mg/dL (8.6-10.3); Potassium 4.4 mEq/L (3.5-5.1)
[2018-03-16] MEDS: Budesonide/Formoterol 160/4.5 1 PUFF INH IH SCH (07:41)
--- NOTE | 2018-03-16 07:44 | Nephrology Progress Note ---
Addendum entered and electronically signed by Kash Sharp MD 03/16/18 20:35: I examined this patient and discussed the medical decision-making with YOAN Melgar. I agree with the documented findings, disposition and treatment plan as described except to the extent set forth below. Original Note: Date of Encounter: 03/16/18 Time of Encounter: 07:41 - Assessment and Plan (1) LÁZARO (acute kidney injury) Current Visit: No Status: Acute Plan for HD today Patient will be going to [facility] for outpatient HD on MWFs Continue renal diet Avoid nephrotoxins if possible (2) COPD with exacerbation Current Visit: Yes Status: Acute Per primary team (3) Acute and chronic respiratory failure with hypoxia Current Visit: Yes Status: Acute Per primary team (4) Leukocytosis Current Visit: No Status: Acute WBC 17.1 this am per primary team Qualifiers: Leukocytosis type: bandemia Qualified Code(s): D72.825 - Bandemia Subjective Principal diagnosis: CHF/COPD Interval history: Patient seen and examined. States he is feeling well today. Objective - Vital Signs Vital signs: Vital Signs Temp Pulse Resp BP Pulse Ox 03/16/18 07:20 97.9 F 69 20 112/53 98 03/16/18 04:28 16 97 03/16/18 03:29 97.8 F 67 20 116/49 93 03/16/18 00:29 98.1 F 77 18 97/42 94 03/15/18 23:20 16 92 03/15/18 20:45 18 94 03/15/18 18:45 98.0 F 81 20 94/47 91 03/15/18 16:39 98.4 F 80 16 97/34 93 03/15/18 16:25 83 03/15/18 15:47 16 96 03/15/18 11:01 98.2 F 77 16 130/58 96 Intake and Output 03/15/18 03/15/18 03/16/18 15:59 23:59 07:59 Intake Total 360 / 360 600 / 600 Output Total 320 / 320 100 / 100 Balance 360 / 360 280 / 280 -100 / -100 Intake: Oral 360 / 360 600 / 600 Output: Urine 240 / 240 Catheter 80 / 80 100 / 100 Other: Meal Lunch Dinner Percent of Meal Consumed 75% 95% Stool Size Moderate Stool Consistency loose Stool Color Brown # Bowel Movements 1 Blood Glucose* 123 114 75 - General Appearance General appearance: Present: obese EENT: Present: ATNC, mucous membranes moist, hearing intact, vision intact Neck: Present: supple Respiratory: Present: clear Cardiology: Present: edema, normal S1, normal S2 Gastrointestinal: Present: no tenderness, no guarding, obese Integumentary: Present: warm and dry Neurologic: Present: alert and oriented x3 Psychiatric: Present: mood/affect appropriate, cooperative - Lab 03/16/18 04:44 03/16/18 04:44 Most recent lab results Calcium 9.7 mg/dL (8.6-10.3) 03/16/18 04:44 Phosphorus 4.6 mg/dL (2.7-4.5) H 03/14/18 12:19 Magnesium 1.7 mg/dL (1.6-2.6) 03/14/18 12:19 Consult Discharge Plan - Plan [facility]errals: [facility] [Primary Care Provider] - (This patient is a Home Based, which means the doctor will come to the home to see the patient. The family will have to call when he gets home.)
[2018-03-16] MEDS ORDERED: *HR* Heparin 10,000 UNIT/10 ML VIAL IV PRN (07:51)
[2018-03-16] MEDS ORDERED: 0.9 % Sodium Chloride 250 ML IVC PRN (07:51)
[2018-03-16] MEDS ORDERED: 0.9 % Sodium Chloride 1,000 ML PRIME SCH (08:00)
[2018-03-16] MEDS: Azithromycin 500 MG in D5% in Water 250 ML IVPB SCH (08:37)
[2018-03-16] MEDS: Furosemide 40 MG/4 ML VIAL IVP SCH (08:37)
[2018-03-16] MEDS: cefTRIAXone 1,000 MG in Water for inj. (sterile) 20 ML 10 ML IVP SCH (08:37)
[2018-03-16] MEDS: Cyanocobalamin (B-12) 1,000 MCG TABLET PO SCH (08:38)
[2018-03-16] MEDS: Aspirin Enteric Coated 325 MG Tablet PO SCH (08:38)
[2018-03-16] MEDS: Magnesium Oxide 400 MG TABLET PO SCH (08:38)
[2018-03-16] MEDS: Cholecalciferol (D-3) 1,000 UNIT TABLET PO SCH (08:38)
[2018-03-16] MEDS: Insulin LISPRO 300 UNITS/3 ML VIAL SQ SCH (08:39)
[2018-03-16] MEDS: Loratadine 10 MG TABLET PO SCH (08:39)
[2018-03-16] MEDS: *HR* OxyCODONE/APAP 5/325 TABLET PO PRN (08:57)
[2018-03-16] MEDS ORDERED: predniSONE 20 MG TABLET PO SCH (09:00)
--- NOTE | 2018-03-16 11:06 | Discharge Summary ---
- NOTES TO OUTPATIENT PROVIDER Notes to Outpatient Provider: Patient was hospitalized here with shortness of breath after missing dialysis. He was also diagnosed with possible COPD exacerbation. He received hemodialysis with significant improvement in his symptoms. He also received steroids and antibiotics for COPD. He is now doing much better and is clinically stable for discharge. There were some issues with his paperwork for the dialysis center which has now been cleared and patient is scheduled for dialysis on Sunday at 11:30 at [facility]. He will be discharged home today. Orders not resulted at time of discharge: Pending orders 03/17/18 04:00 Chem 7 [Basic Metabolic Panel] AM 0400 Complete Blood Count w/o Diff [HEME] AM 0400 03/18/18 04:00 Chem 7 [Basic Metabolic Panel] AM 0400 Complete Blood Count w/o Diff [HEME] AM 04003/19/18 04:00 Chem 7 [Basic Metabolic Panel] AM 0400 Complete Blood Count w/o Diff [HEME] AM 0400 03/20/18 04:00 Chem 7 [Basic Metabolic Panel] AM 0400 Complete Blood Count w/o Diff [HEME] AM 0400 03/21/18 04:00 Chem 7 [Basic Metabolic Panel] AM 0400 Complete Blood Count w/o Diff [HEME] AM 0400 03/22/18 04:00 Chem 7 [Basic Metabolic Panel] AM 0400 Complete Blood Count w/o Diff [HEME] AM 0400 Date of Encounter: 03/16/18 Time of Encounter: 11:05 - Discharge Diagnosis (1) Acute and chronic respiratory failure with hypoxia Priority: Primary Status: Acute (2) End stage renal disease Priority: Secondary Status: Acute (3) COPD with exacerbation Priority: Secondary Status: Acute Hospital course: Mr. Madrid is a 67 year old male Patient with history of end-stage renal disease on hemodialysis, COPD, hypertension, diabetes who was hospitalized here with shortness of breath after missing dialysis. He was also diagnosed with possible COPD exacerbation. He received hemodialysis with significant improvement in his symptoms. He also received steroids and antibiotics for COPD. He is now doing much better and is clinically stable for discharge. There were some issues with his paperwork for the dialysis center which has now been cleared and patient is scheduled for dialysis on Sunday at 11:30 at [facility]. He will be discharged home today. 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 - Time Spent with Patient Total time spent providing and/or coordinating discharge services: Greater than 30 minutes (35 min) - Discharge Medications Prescriptions: Azithromycin [Zithromax] 500 mg PO DAILY #8 tablet predniSONE [PredniSONE] 40 mg PO DAILY #10 tablet Home Medications: Allopurinol [Zyloprim 100 MG] 200 mg PO DAILY 09/28/15 [History] Baclofen [Lioresal] 15 mg PO TID PRN 09/28/15 [History] Budesonide/Formoterol 160/4.5 [Symbicort 160/4.5] 2 puff IH BIDR 09/28/15 [History] Cetirizine HCl [Zyrtec] 10 mg PO DAILY 09/28/15 [History] Meclizine HCl [Verticalm] 12.5 mg PO BID PRN 09/28/15 [History] OxyCODONE/APAP 5/325 [Percocet 5/325 MG] 1 tab PO Q6HR PRN 09/28/15 [History] Pantoprazole Sodium [Protonix] 40 mg PO BID 09/28/15 [History] Albuterol Sulfate [Proair Hfa] 2 puff IH Q4H PRN 12/14/15 [History] Aspirin Enteric Coated [Aspirin EC] 325 mg PO DAILY 12/14/15 [History] Ondansetron [Zofran] 8 mg PO BID PRN 12/14/15 [History] Calcitriol 0.5 mcg PO DAILY 02/26/18 [History] Cyanocobalamin (Vitamin B-12) [Vitamin B12] 1,000 mcg PO DAILY 02/26/18 [History] Sennosides [Senna] 2 tab PO HS 02/26/18 [History] Tiotropium [place] [Spiriva Respimat] 2 puff IH DAILY 02/26/18 [History] Albuterol Neb [Proventil Neb] 2.5 mg IH Q6H PRN 03/14/18 [History] Atorvastatin [Lipitor] 40 mg PO HS 03/14/18 [History] Cholecalciferol (D-3) [Vitamin D] 3,000 unit PO DAILY 03/14/18 [History] Docusate Sodium [Dok] 100 mg PO DAILY 03/14/18 [History] Ferrous Sulfate [Iron] 325 mg PO DAILY 03/14/18 [History] Furosemide [Lasix] 40 mg PO BID PRN 03/14/18 [History] Lisinopril [Zestril] 5 mg PO DAILY 03/14/18 [History] Magnesium Oxide [Magnesium] 400 mg PO DAILY 03/14/18 [History] Metoprolol Succinate [Toprol Xl] 50 mg PO DAILY 03/14/18 [History] Azithromycin [Zithromax] 500 mg PO DAILY #8 tablet 03/16/18 [Rx] predniSONE [PredniSONE] 40 mg PO DAILY #10 tablet 03/16/18 [Rx] Allergies/Adverse Reactions: Allergy/AdvReac Type Severity Reaction Status Date / Time NSAIDS (Non-Steroidal Allergy See Verified 09/28/15 20:55 Anti-Inflamma Comments Date of admission: 03/14/18 12:44 Primary care physician: [facility] Consults: 03/14/18 13:02 Consult to Psychotherapist Social Worker [CONS] Routine Reason for SW Consult: Please confirm chair time and that all paperwork has been received from the [facility]. Thanks! 03/14/18 13:18 Consult to Nephrology [CONS] Routine Consulting Provider: [facility] Nabila/ANDRIA/BENJAMIN/TERRENCE Reason for Consult: ESRD Call Completed: No 03/16/18 08:00 Consult to Dialysis [CONS] ONCE Discharging clinician: Brenda Smith Anticipated date of discharge: 03/16/18 - Constitutional Vitals: Temp Pulse Resp BP Pulse Ox 97.9 F 69 18 112/53 92 03/16/18 07:20 03/16/18 07:20 03/16/18 07:40 03/16/18 07:40 03/16/18 07:40 General appearance: Present: cooperative, A&O X 3, answers questions appropriately Exam: . - Neck Neck exam general surgery: Present: supple, trachea midline. Absent: lymphadenopathy - Respiratory Respiratory exam: Present: decreased breath sounds (at bases), prolonged expiratory phase, wheezes. Absent: accessory muscle use, rales, rhonchi - Cardiovascular Cardiovascular exam: Present: RRR, +S1, +S2. Absent: diastolic murmur, gallop, rubs, systolic murmur - Extremities Exam Extremities exam: Present: pedal edema, warm, radial pulses palpable and symmetrical. Absent: calf tenderness, cyanotic - Patient Status Disposition: Home, Self-Care Condition: Good Functional capacity at discharge: uses cane/walker Overall status at discharge: patient is progressing back to baseline - Discharge Instructions Follow Up With: [facility] [Primary Care Provider] - (This patient is a Home Based, which means the doctor will come to the home to see the patient. The family will have to call when he gets home.) - Diet and Activity Activity: increase activity as tolerated Diet: diabetic diet, low fat, low cholesterol, low salt diet
[2018-03-16 13:19] VITALS: BP 130/56
== END 2018-03-16 15:26 | disposition home or self-care (01) | DRG 190 ==
LOC: 2NNU 12:44 → SUATTDRO 12:44
PROVIDERS: ADMIT Internal Medicine; ATTEND Internal Medicine

== ENCOUNTER 2018-03-25 09:22 | Inpatient (IN) ==
--- NOTE | 2018-03-25 14:29 | Nephrology Consult Note ---
Addendum entered and electronically signed by Kash Sharp MD 03/25/18 22:17: I examined this patient and discussed the medical decision-making with YOAN Terrazas. I agree with the documented findings, disposition and treatment plan as described except to the extent set forth below. Patient was seen on dialysis. She had dyspnea and her ultrafiltration was adjusted to assist with her volume overload state. Original Note: Date of Encounter: 03/25/18 Time of Encounter: 14:22 Assessment and Plan (1) ESRD (end stage renal disease) on dialysis Current Visit: Yes Status: Acute Current regimen is [facility]. Last treatment was Sunday without complication. HD ordered for today, stat labs have been ordered for today. Avoid nephrotoxins and renal dose all medications. Accurate I&O. Renal diet when able to eat. (2) Acute on chronic kidney failure Current Visit: No Status: Acute Has recently progressed to ESRD with dialysis. Qualifiers: Acute renal failure type: unspecified Chronic kidney disease stage: stage 4 (severe) Qualified Code(s): N17.9 - Acute kidney failure, unspecified; N18.4 - Chronic kidney disease, stage 4 (severe) (3) COPD with exacerbation Current Visit: No Status: Acute Per primary. History of Present Illness - Reason for Consult Consult date: 03/25/18 end stage renal disease - Chief Complaint shortness of breath, syncope - History of Present Illness Mr. Madrid is a 67-year-old male. He presented today with shortness of breath and feeling "lightheaded". He said the feelings started sometime on Sunday and has worsened over time. Cancel his hemodialysis session today and came to the hospital. PMH: arthritis, CHF, COPD, GERD, hyperlipidemia, hypertension, peripheral artery disease. Does recently started hemodialysis and receives dialysis Sunday at [facility]. Receives dialysis through a tunneled line was placed here at the hospital. He had dialysis Sunday and Sunday without complication last week. Mentioned above he did miss today due to him not feeling well. He admits to feeling shortness of breath, lightheaded but not passing out. His nausea and diarrhea admits to 2 episodes of vomiting. Denies hematemesis. Denies poor PO intake at home. Live at home with his significant other. He is a former smoker. Denies any EtOH or illicit drug use. Kidney specialists having consult it to manage hemodialysis here at the [facility]. She has been ordered for today. Will order additional UF or HD as needed. Past Med Surg Social Fam HX - Past Medical History Medical history: arthritis, CHF, COPD, GERD, hyperlipidemia, hypertension, peripheral artery disease, renal disease Additional medical history: sleep apnea Psychiatric history: anxiety - Past Surgical History Surgical History: other Additional surgical history: dental - bronchoscopy x 2 - egd - right femoral stent - spine stimulator - Social History Smoking Status: Former smoker Smokeless Tobacco Status: No Alcohol use: rarely Drug use: none - Family History Mother History Unknown: Yes Adopted: No Family Member Ethnicity: Non- Living Status: Age at : 67 Hx Family Cardiac Disorders: No Hx Family Respiratory Disorders: (COPD) Hx Family Cancer: Yes (ovarian cancer) Hx Family GI Disorders: No Hx Family Endocrine Disorder: No Hx Family Neuromuscular Disorders: No Hx Family Neurologic Disorders: No Hx Family HEENT Disorders: No Hx Family Autoimmune Disorders: No Medications and Allergies Allopurinol [Zyloprim 100 MG] 200 mg PO DAILY 09/28/15 [History] Baclofen [Lioresal] 15 mg PO TID PRN 09/28/15 [History] Budesonide/Formoterol 160/4.5 [Symbicort 160/4.5] 2 puff IH BIDR 09/28/15 [History] Cetirizine HCl [Zyrtec] 10 mg PO DAILY 09/28/15 [History] Meclizine HCl [Verticalm] 12.5 mg PO BID PRN 09/28/15 [History] OxyCODONE/APAP 5/325 [Percocet 5/325 MG] 1 tab PO Q6HR PRN 09/28/15 [History] Pantoprazole Sodium [Protonix] 40 mg PO BID 09/28/15 [History] Albuterol Sulfate [Proair Hfa] 2 puff IH Q4H PRN 12/14/15 [History] Aspirin Enteric Coated [Aspirin EC] 325 mg PO DAILY 12/14/15 [History] Ondansetron [Zofran] 8 mg PO BID PRN 12/14/15 [History] Calcitriol 0.5 mcg PO DAILY 02/26/18 [History] Cyanocobalamin (Vitamin B-12) [Vitamin B12] 1,000 mcg PO DAILY 02/26/18 [History] Sennosides [Senna] 2 tab PO HS 02/26/18 [History] Tiotropium [place] [Spiriva Respimat] 2 puff IH DAILY 02/26/18 [History] Albuterol Neb [Proventil Neb] 2.5 mg IH Q6H PRN 03/14/18 [History] Atorvastatin [Lipitor] 40 mg PO HS 03/14/18 [History] Cholecalciferol (D-3) [Vitamin D] 3,000 unit PO DAILY 03/14/18 [History] Docusate Sodium [Dok] 100 mg PO DAILY 03/14/18 [History] Ferrous Sulfate [Iron] 325 mg PO DAILY 03/14/18 [History] Furosemide [Lasix] 40 mg PO BID PRN 03/14/18 [History] Lisinopril [Zestril] 5 mg PO DAILY 03/14/18 [History] Magnesium Oxide [Magnesium] 400 mg PO DAILY 03/14/18 [History] Metoprolol Succinate [Toprol Xl] 50 mg PO DAILY 03/14/18 [History] Azithromycin [Zithromax] 500 mg PO DAILY #8 tablet 03/16/18 [Rx] predniSONE [PredniSONE] 40 mg PO DAILY #10 tablet 03/16/18 [Rx] Allergy/AdvReac Type Severity Reaction Status Date / Time NSAIDS (Non-Steroidal Allergy See Verified 09/28/15 20:55 Anti-Inflamma Comments Review of Systems All Systems review (narrative): Remainder of the systems are negative. Constitutional: no chills, no fatigue, no fever(s) Cardiovascular: lightheadedness, no chest pain, no dyspnea, no edema Respiratory: dyspnea, no hemoptysis Gastrointestinal: vomiting, no diarrhea, no nausea Genitourinary Male: no hematuria, no urinary frequency Exam - Vital Signs Vital signs: Initial Vital Signs Temp Pulse Resp BP Pulse Ox 97.7 F 85 18 130/69 93 03/25/18 11:59 03/25/18 11:59 03/25/18 11:59 03/25/18 11:59 03/25/18 11:59 Vital Signs - Last 8 Hours Temp Pulse Resp BP Pulse Ox 03/25/18 11:59 97.7 F 85 18 130/69 93 Intake and Output 03/24/18 03/25/18 03/25/18 23:59 07:59 15:59 Output Total 400 / 400 Balance -400 / -400 Output: Urine 400 / 400 Other: Weight 139.5 kg Patient Weight 03/25/18 23:59 Weight 139.5 kg - General Appearance General appearance: well-developed, well-nourished, obese EENT: ATNC, hearing intact, vision intact Neck: supple Respiratory: clear Cardiology: no edema, normal S1, normal S2 - Dialysis Access Dialysis Vascular Access: Venous Catheter Additional Comments: Dressing is clean dry and intact. Gastrointestinal: normoactive bowel sounds, no tenderness, no guarding Integumentary: no rash, warm and dry Neurologic: alert and oriented x3 Psychiatric: mood/affect appropriate, cooperative Consult Discharge Plan - Plan Referrals: [facility] [Primary Care Provider] -
[2018-03-25] MEDS ORDERED: *HR* Heparin 10,000 UNIT/10 ML VIAL IV PRN (15:18)
[2018-03-25] MEDS ORDERED: 0.9 % Sodium Chloride 250 ML IVC PRN (15:18)
[2018-03-25 15:20] LABS: Hematocrit 30.2 % (37.5-50.1); Hemoglobin 9.7 g/dL (12.9-16.9); Mean Corpuscular HGB Conc 32.1 g/dL (31.6-35.5); Mean Corpuscular Hemoglobin 30.4 pg (28.0-33.3); Mean Corpuscular Volume 94.7 fL (83.0-100.0); Mean Platelet Volume 10.9 fL (9.4-12.4); Platelet Count 249 K/mcL (140-400); Red Blood Count 3.19 M/mcL (4.19-5.50); Red Cell Distribution Width 17.1 % (11.5-14.5)
[2018-03-25 15:29] LABS: Calcium 9.1 mg/dL (8.6-10.3); Magnesium 1.9 mg/dL (1.6-2.6); Phosphorous 5.8 mg/dL (2.7-4.5); Potassium 3.9 mEq/L (3.5-5.1)
[2018-03-25] MEDS ORDERED: 0.9 % Sodium Chloride 1,000 ML PRIME SCH (15:30)
[2018-03-25] MEDS ORDERED: Naloxone 0.4 MG/ML INJ IVP PRN (16:42)
[2018-03-25 17:11] LABS: Lymphocytes # 2.1 K/mcL (0.6-4.6); Neutrophils # 15.7 K/mcL (1.6-8.9)
[2018-03-25 17:14] LABS: Platelet Estimate Normal (Normal)
--- NOTE | 2018-03-25 18:09 | Internal Med History&Physical ---
Date of Encounter: 03/25/18 Time of Encounter: 11:00 Internal Medicine - H&P: HPI Chief complaint: Shortness of breath Admitted From: Home Plans for Post Hospital Care: Home History of present illness: Patient is a 67-year-old male with past medical history significant for CKD stage IV, CHF, hypertension, hyperlipidemia and COPD who presents from [facility] ER due to elevated troponins. Patient reports progressive shortness of breath for the last several days to weeks and has been treated twice for COPD exacerbation with antibiotics and steroids. Patient now reports of nausea and generalized weakness so decided to come to [facility] ER for evaluation. At the ER in [facility], patient was noted to have elevated troponin of 0.04 in addition to elevated BNP of 2200. Patient transferred to [facility] for ACS rule out due to elevated troponins and elevated BNP. Nephrology will be consulted for management of end-stage renal disease with hemodialysis Past Med Surg Social Fam HX - Past Medical History Medical history: arthritis, CHF, COPD, GERD, hyperlipidemia, hypertension, peripheral artery disease, renal disease Additional medical history: sleep apnea Psychiatric history: anxiety - Past Surgical History Surgical History: other Additional surgical history: dental - bronchoscopy x 2 - egd - right femoral stent - spine stimulator - Social History Smoking Status: Former smoker Smokeless Tobacco Status: No Alcohol use: rarely Drug use: none - Family History Mother History Unknown: Yes Adopted: No Family Member Ethnicity: Non- Living Status: Age at : 67 Hx Family Cardiac Disorders: No Hx Family Respiratory Disorders: (COPD) Hx Family Cancer: Yes (ovarian cancer) Hx Family GI Disorders: No Hx Family Endocrine Disorder: No Hx Family Neuromuscular Disorders: No Hx Family Neurologic Disorders: No Hx Family HEENT Disorders: No Hx Family Autoimmune Disorders: No Internal Medicine - H&P: Meds Allopurinol [Zyloprim 100 MG] 200 mg PO DAILY 09/28/15 [History] Baclofen [Lioresal] 15 mg PO TID 09/28/15 [History] Budesonide/Formoterol 160/4.5 [Symbicort 160/4.5] 2 puff IH BID 09/28/15 [History] Meclizine HCl [Verticalm] 12.5 mg PO DAILY 09/28/15 [History] OxyCODONE/APAP 5/325 [Percocet 5/325 MG] 1 tab PO Q6HR PRN 09/28/15 [History] Pantoprazole Sodium [Protonix] 40 mg PO DAILY 09/28/15 [History] Albuterol Sulfate [Proair Hfa] 2 puff IH Q4H PRN 12/14/15 [History] Ondansetron [Zofran] 4 mg PO BID PRN 12/14/15 [History] Calcitriol 0.5 mcg PO DAILY 02/26/18 [History] Cyanocobalamin (Vitamin B-12) [Vitamin B12] 1,000 mcg PO DAILY 02/26/18 [History] Sennosides [Senna] 2 tab PO HS 02/26/18 [History] Tiotropium [place] [Spiriva Respimat] 2 puff IH DAILY 02/26/18 [History] Albuterol Neb [Proventil Neb] 1 puff IH Q4HR 03/14/18 [History] Atorvastatin [Lipitor] 40 mg PO HS 03/14/18 [History] Cholecalciferol (D-3) [Vitamin D] 3,000 unit PO DAILY 03/14/18 [History] Docusate Sodium [Dok] 100 mg PO DAILY 03/14/18 [History] Ferrous Sulfate [Iron] 325 mg PO DAILY 03/14/18 [History] Furosemide [Lasix] 20 mg PO DAILY PRN 03/14/18 [History] Magnesium Oxide [Magnesium] 400 mg PO DAILY 03/14/18 [History] FluocinoNIDE 0.05% CRM [Lidex] 1 appl TP TID 03/25/18 [History] Metoprolol [Lopressor] 12.5 mg PO BID 03/25/18 [History] Miconazole 2% ointment [Aloe [place] Antifungal Ointment] 1 applic TP DAILY 03/25/18 [History] Potassium Chloride [Klor-Con 10] 10 meq PO DAILY 03/25/18 [History] Pregabalin [Lyrica] 50 mg PO BID 03/25/18 [History] Allergy/AdvReac Type Severity Reaction Status Date / Time NSAIDS (Non-Steroidal Allergy See Verified 09/28/15 20:55 Anti-Inflamma Comments All Systems PM: A 10-system review of systems was performed and is negative for pertinent findings except as documented above in the HPI. - Constitutional Vitals: Temp Pulse Resp BP Pulse Ox 97.7 F 85 18 130/69 93 03/25/18 11:59 03/25/18 11:59 03/25/18 11:59 03/25/18 11:59 03/25/18 11:59 General appearance: Present: A&O X 3, no acute distress Exam: As above - Eye Eye exam: Present: normal appearance - ENT ENT exam: Present: mucous membranes moist - Respiratory Respiratory exam: Present: CTAB. Absent: accessory muscle use, rales, rhonchi, wheezes - Cardiovascular Cardiovascular exam: Present: RRR, +S1, +S2. Absent: diastolic murmur, gallop, rubs, systolic murmur - GI/Abdominal GI/Abdominal exam: Present: normal bowel sounds, soft, no peritoneal signs. Absent: distended, tenderness - Extremities Exam Extremities exam: Absent: pedal edema - Neurological Exam Neurological exam: Present: oriented X3 - Psychiatric Psychiatric exam: Present: normal mood - Skin Skin exam: Present: normal color Internal Med - H&P Results - Labs CBC & Chem 7: 03/25/18 14:59 03/25/18 14:59 Labs: Short CBC 03/25/18 Range/Units 14:59 WBC 17.8 H (4.3-11.1) K/mcL Hgb 9.7 L (12.9-16.9) g/dL Hct 30.2 L (37.5-50.1) % Plt Count 249 (140-400) K/mcL Neutrophils # 15.7 H (1.6-8.9) K/mcL BMP 03/25/18 14:59 Sodium 139 Potassium 3.9 Chloride 100 Carbon Dioxide 27 BUN 62 H Creatinine 5.25 H Glucose 160 H Calcium 9.1 - Assessment and plan (1) Elevated brain natriuretic peptide (BNP) level Current Visit: Yes Status: Acute Assessment and plan: Patient found to have elevated BNP of 2200 at [facility] Patient apparently takes Lasix 40 mg as needed at home Will initiate IV Lasix 40 mg twice daily (2) Troponin level elevated Current Visit: Yes Status: Acute Assessment and plan: Patient reported to have elevated troponin level at [facility] without any EKG changes Patient asymptomatic Will trend troponins and monitor on telemetry (3) Leukocytosis Current Visit: No Status: Acute Assessment and plan: Patient with white count of 19.2 at [facility] but patient has been on steroids for COPD exacerbation for at least 7-10 days Chest x-ray at [facility] without any acute findings for infiltrates and patient afebrile Will not initiate antibiotics at this point but continue to monitor Qualifiers: Leukocytosis type: bandemia Qualified Code(s): D72.825 - Bandemia (4) ESRD (end stage renal disease) on dialysis Current Visit: Yes Status: Acute Assessment and plan: Nephrology consulted for hemodialysis and appreciate recommendations (5) Chronic respiratory failure Current Visit: No Status: Acute Assessment and plan: Stable as patient is on baseline O2 supplementation at 4 L Qualifiers: Respiratory failure complication: hypoxia Qualified Code(s): J96.11 - Chronic respiratory failure with hypoxia (6) COPD (chronic obstructive pulmonary disease) Current Visit: No Status: Chronic Assessment and plan: Patient not in exacerbation so we will continue home dose of Symbicort Qualifiers: COPD type: emphysema Emphysema type: panlobular Qualified Code(s): J43.1 - Panlobular emphysema (7) Benign hypertension with chronic kidney disease, stage IV Current Visit: No Status: Chronic Assessment and plan: Controlled; continue home dose of beta debo (8) Hyperlipidemia Current Visit: No Status: Chronic Assessment and plan: Continue statin Qualifiers: Hyperlipidemia type: mixed hyperlipidemia Qualified Code(s): E78.2 - Mixed hyperlipidemia (9) DVT prophylaxis Current Visit: Yes Status: Acute Assessment and plan: Subcutaneous heparin - Time Spent With Patient Total time spent is greater than 50% in coordination of care (as documented) at patient's floor/unit and/or counseling patient:
[2018-03-25] MEDS: Albuterol 2.5 MG/3 ML NEBULIZER IH SCH ×2 (20:27→23:53)
[2018-03-25] MEDS ORDERED: Budesonide/Formoterol 160/4.5 1 PUFF INH IH SCH (21:00)
[2018-03-25] MEDS: Pregabalin 50 MG CAPSULE PO SCH (21:26)
[2018-03-25] MEDS: Baclofen 10 MG TABLET PO SCH (21:26)
[2018-03-25] MEDS: Furosemide 40 MG/4 ML VIAL IVP SCH (21:40)
[2018-03-25] MEDS: FluocinoNIDE 0.05% CRM 15 GM TUBE TP SCH (21:40)
[2018-03-25] MEDS: *HR* OxyCODONE/APAP 5/325 TABLET PO PRN (21:52)
[2018-03-25] MEDS: Sennosides 8.6 MG TABLET PO SCH (21:53)
[2018-03-26] MEDS: Sennosides 8.6 MG TABLET PO SCH ×2 (00:04→20:38)
[2018-03-26] MEDS: Albuterol 2.5 MG/3 ML NEBULIZER IH SCH ×6 (04:17→23:37)
[2018-03-26] MEDS: *HR* OxyCODONE/APAP 5/325 TABLET PO PRN ×4 (04:49→23:55)
[2018-03-26] MEDS: *HR* Heparin 5,000 UNIT/ML VIAL SQ SCH ×2 (05:00→17:17)
[2018-03-26] MEDS: Ondansetron ODT 4 MG TAB.RAPDIS PO PRN (05:00)
[2018-03-26 05:44] LABS: Hematocrit 32.7 % (37.5-50.1); Hemoglobin 10.7 g/dL (12.9-16.9); Mean Corpuscular HGB Conc 32.7 g/dL (31.6-35.5); Mean Corpuscular Hemoglobin 30.8 pg (28.0-33.3); Mean Corpuscular Volume 94.2 fL (83.0-100.0); Neutrophils # 14.4 K/mcL (1.6-8.9); Nucleated Red Blood Cells 0.1 /100 WBC (0); Platelet Count 257 K/mcL (140-400); Red Blood Count 3.47 M/mcL (4.19-5.50); Red Cell Distribution Width 17.2 % (11.5-14.5)
[2018-03-26 06:00] LABS: Calcium 9.4 mg/dL (8.6-10.3); Potassium 3.3 mEq/L (3.5-5.1)
[2018-03-26 06:49] LABS: Lymphocytes # 3.4 K/mcL (0.6-4.6); Monocytes # 2.1 K/mcL (0.0-1.3); Platelet Estimate Normal (Normal)
[2018-03-26] MEDS ORDERED: Albuterol 2.5 MG/3 ML NEBULIZER IH PRN (07:18)
[2018-03-26] MEDS: Budesonide/Formoterol 160/4.5 1 PUFF INH IH SCH ×2 (07:31→19:33)
[2018-03-26] MEDS: Tiotropium 18 MCG inhalation IH SCH (07:32)
[2018-03-26] MEDS: Magnesium Oxide 400 MG TABLET PO SCH (08:30)
[2018-03-26] MEDS: Cyanocobalamin (B-12) 1,000 MCG TABLET PO SCH (08:30)
[2018-03-26] MEDS: Pregabalin 50 MG CAPSULE PO SCH ×2 (08:30→20:40)
[2018-03-26] MEDS: Cholecalciferol (D-3) 1,000 UNIT TABLET PO SCH (08:31)
[2018-03-26] MEDS: Baclofen 10 MG TABLET PO SCH ×3 (08:31→20:37)
[2018-03-26] MEDS: Furosemide 40 MG/4 ML VIAL IVP SCH (08:32)
--- NOTE | 2018-03-26 08:55 | Internal Med Progress Note ---
Hospitalist Progress Note - Encounter Date of Encounter: 03/26/18 Time of Encounter: 08:53 - Subjective Interval History: Patient is a 67-year-old male with past medical history significant for CKD stage IV, CHF, hypertension, hyperlipidemia and COPD who presents from [facility] due to elevated troponins. Patient reports progressive shortness of breath for the last several days to weeks and has been treated twice for COPD exacerbation with antibiotics and didier roids. Patient now reports of nausea and generalized weakness so decided to come to [facility] ER for evaluation. At the ER in [facility], patient was noted to have elevated troponin of 0.04 in addition to elevated BNP of 2200. Patient transferred to [facility] for ACS rule out due to elevated troponins and elev ated BNP. patient was admitted on 03/25 for SOB and trop 0.04-0.05, but he did have one episodes of chest pressure this morning, will check TTE, if abnormal then consult cardiology - Exam Vitals: Temp Pulse Resp BP Pulse Ox 97.4 F L 73 18 170/71 90 03/26/18 07:50 03/26/18 07:50 03/26/18 07:50 03/26/18 07:50 03/26/18 07:50 Exam: CONSTITUTIONAL: patient appears as an age appropriate male in no acute distress. EYES Clear sclerae, bilateral pupils are equal, reactive to light. EMOI. RESPIRATORY: No accessory muscle use, bilateral clear to auscultation, some crackles/rales. CARDIOVASCULAR: Regular heart rate, normal S1 and S2, no murmurs GASTROINTESTINAL: bowel sounds present, soft, no tenderness. MUSCULOSKELETAL: Joints in normal range of motion, no clubbing, no edema, no cyanosis. Bilateral peripheral pulses 2+. NEUROLOGIC: CN II to XII are grossly intact, no focal neurological deficit. - Assessment and Plan (1) Elevated brain natriuretic peptide (BNP) level Current Visit: Yes Status: Acute Assessment and Plan: BNP was 2200 on admission, will check TTE, his last ech was over 2 years ago, ,kathrynley from noncompliant with renal diet and fluids overload (2) Troponin level elevated Current Visit: Yes Status: Acute Assessment and Plan: mild trop 0.04-0.05, he did have episode of chest pressure, will check TTE and stress test (3) COPD (chronic obstructive pulmonary disease) Current Visit: No Status: Chronic Assessment and Plan: complleted a course of steroids, scant rhonchi, he was on 4-6 L NC at home, stable contineu home meds (4) CARMEN (obstructive sleep apnea) Current Visit: No Status: Chronic Assessment and Plan: on BIPAP at night (5) Leukocytosis Current Visit: Yes Status: Acute Assessment and Plan: will check CXR, blood culture, he has permacath for 1 mon, likley from steroids, will follow up (6) ESRD (end stage renal disease) on dialysis Current Visit: Yes Status: Acute Assessment and Plan: HD on MWF, nephrology is on board (7) Chronic respiratory failure Current Visit: Yes Status: Chronic Assessment and Plan: patient was on 4-6 L NC at home for COPD (8) Morbid obesity Current Visit: Yes Status: Acute DVT Prophylaxis: heparin SC - Time Spent with Patient Total time spent is greater than 50% in coordination of care (as documented) at patient's floor/unit and/or counseling patient: 25 - 35 minutes Internal Medicine: Result - Labs CBC & Chem 7: 03/26/18 05:16 03/26/18 05:16 Labs: Short CBC 03/25/18 03/26/18 Range/Units 14:59 05:16 WBC 17.8 H 21.2 H (4.3-11.1) K/mcL Hgb 9.7 L 10.7 L (12.9-16.9) g/dL Hct 30.2 L 32.7 L (37.5-50.1) % Plt Count 249 257 (140-400) K/mcL Neutrophils # 15.7 H 14.4 H (1.6-8.9) K/mcL BMP 03/25/18 03/26/18 14:59 05:16 Sodium 139 136 Potassium 3.9 3.3 L Chloride 100 94 L Carbon Dioxide 27 28 BUN 62 H 29 H Creatinine 5.25 H 3.65 H Glucose 160 H 97 Calcium 9.1 9.4 Cardiac Enzymes 03/25/18 Range/Units 18:11 Troponin I 0.05 H* (< 0.04) ng/mL Consult Discharge Plan - Plan [facility]errals: [facility] [Primary Care Provider] - (3) COPD (chronic obstructive pulmonary disease) Qualifiers: COPD type: emphysema Emphysema type: panlobular Qualified Code(s): J43.1 - Panlobular emphysema (5) Leukocytosis Qualifiers: Leukocytosis type: bandemia Qualified Code(s): D72.825 - Bandemia (7) Chronic respiratory failure Qualifiers: Respiratory failure complication: hypoxia Qualified Code(s): J96.11 - Chronic respiratory failure with hypoxia
--- NOTE | 2018-03-26 09:56 | Nephrology Progress Note ---
Addendum entered and electronically signed by Kahs Sharp MD 03/26/18 18:04: I examined this patient and discussed the medical decision-making with YOAN Terrazas. I agree with the documented findings, disposition and treatment plan as described except to the extent set forth below. Original Note: Date of Encounter: 03/26/18 Time of Encounter: 09:54 - Assessment and Plan (1) ESRD (end stage renal disease) on dialysis Current Visit: Yes Status: Acute Current regimen is Sunday at [facility]. HD yesterday. Avoid nephrotoxins and renal dose all medications. Accurate I&O. Renal diet when able to eat. (2) Acute on chronic kidney failure Current Visit: No Status: Acute Has recently progressed to ESRD with dialysis. Qualifiers: Qualified Code(s): N17.9 - Acute kidney failure, unspecified; N18.4 - Chronic kidney disease, stage 4 (severe) (3) COPD with exacerbation Current Visit: No Status: Acute Per primary. (4) Troponin level elevated Current Visit: Yes Status: Acute Trop is 0.05, per primary. Subjective Principal diagnosis: elevated trop/copd Interval history: Pt seen and examined, doing well. Admits shortness of breath is improved, still feels a little "lightheaded". Denies nausea/vomiting/diarrhea. Objective - Vital Signs Vital signs: Vital Signs Temp Pulse Resp BP Pulse Ox 03/26/18 07:50 97.4 F L 73 18 170/71 90 03/26/18 07:30 16 94 03/26/18 04:26 97.9 F 73 146/64 95 03/26/18 04:17 16 96 03/26/18 00:15 97.8 F 76 17 148/63 92 03/25/18 23:53 16 161/72 92 03/25/18 20:27 16 92 03/25/18 20:10 98.1 F 90 20 161/72 91 03/25/18 19:42 98.2 F 18 153/71 03/25/18 19:25 156/83 03/25/18 19:10 140/88 03/25/18 18:55 142/84 03/25/18 18:40 145/84 03/25/18 18:25 164/86 03/25/18 18:10 158/82 03/25/18 17:55 160/87 03/25/18 17:40 133/96 03/25/18 17:25 151/112 03/25/18 17:10 166/84 03/25/18 16:55 165/84 03/25/18 16:40 150/80 03/25/18 16:25 164/70 03/25/18 16:10 161/75 03/25/18 15:55 98.4 F 18 163/62 03/25/18 11:59 97.7 F 85 18 130/69 93 Intake and Output 03/25/18 03/26/18 03/26/18 23:59 07:59 15:59 Intake Total 240 / 240 800 / 800 240 / 240 Output Total 4800 / 4800 Balance -4560 / -4560 800 / 800 240 / 240 Intake: Oral 240 / 240 800 / 800 240 / 240 Output: Urine 200 / 200 Total Dialysis (HD) Output 4600 / 4600 Other: Meal Dinner Breakfast Percent of Meal Consumed 40% 90% Weight 140 kg Blood Glucose* 156 100 Hemodialysis Net Fluid Removed 4000 (mL) Patient Weight 03/26/18 23:59 Weight 140 kg - General Appearance General appearance: Present: well-developed, well-nourished, obese EENT: Present: ATNC, hearing intact, vision intact Neck: Present: supple Respiratory: Present: clear Cardiology: Present: no edema, normal S1, normal S2 Dialysis Vascular Access: Venous Catheter (Tunneled Line, dRSG C/D/I) Gastrointestinal: Present: normoactive bowel sounds, no tenderness, no guarding Integumentary: Present: no rash, warm and dry Neurologic: Present: alert and oriented x3 Psychiatric: Present: mood/affect appropriate, cooperative - Lab 03/26/18 05:16 03/26/18 05:16 Most recent lab results Calcium 9.4 mg/dL (8.6-10.3) 03/26/18 05:16 Phosphorus 5.8 mg/dL (2.7-4.5) H 03/25/18 14:59 Magnesium 1.9 mg/dL (1.6-2.6) 03/25/18 14:59 Consult Discharge Plan - Plan [facility]errals: [facility] [Primary Care Provider] -
--- NOTE | 2018-03-26 10:14 | Event Note ---
Date of Encounter: 03/26/18 Time of Encounter: 10:14 got call from stress lab, unalbe to to stress test due to elevated trop, 0.05, will consult cardiology, pending TTE
--- NOTE | 2018-03-26 14:08 | Cardiology Consult Note ---
<Katey Toro - Last Filed: 03/26/18 14:03> Date of Encounter: 03/26/18 Time of Encounter: 13:30 Assessment and Plan (1) Acute and chronic respiratory failure with hypoxia Current Visit: Yes Status: Acute Per cardiology: -Reports hypoxia at home. -On home O2 at 4-6LPM at all times. -Management per primary service. (2) CHF (congestive heart failure) Current Visit: Yes Status: Suspected Per cardiology: -Known diastolic CHF. -Last TTE ARM 2015 with LVEF 60%, mild concentric LVH, moderate diastolic dysfunction, mildly dilated LA, no segmental wall motion abnormalities noted. -Current TTE pending. -ntpBNP at [facility] 2200. -On IV lasix, net negative 3320ml. -Reports symptom improvement today. -Strict i/os, fluid restriction, daily weights. -Symptoms improved today, net negative fluid balance, back on home O2, will switch lasix to po. -TTE pending. Qualifiers: Heart failure type: diastolic Heart failure chronicity: acute on chronic Qualified Code(s): I50.33 - Acute on chronic diastolic (congestive) heart failure (3) Troponin level elevated Current Visit: Yes Status: Acute Per cardiology: -Troponin at [facility] 0.064 (range <0.05), [facility] 0.05, 0.04 in the setting of CHF, ESRD, COPD exacerbation, hypoxia. -ECG with no acute ischemic changes noted, however QTc prolonged. -Patient reported atypical chest pain, consistent with GI. Denies current chest pain. -Reports recent [facility] test [facility]. -TTE pending. -ON statin, BB. Not on ASA due to allergy to NSAID. -Demand ischemia in the setting of above. No cardiac rehab consult warranted. -TTE pending. -Will repeat Stat ECG now. -Will obtain records from [facility] regarding stress test. Discussion w patient/family: The assessment and plan as outlined above was discussed with the patient who expressed understanding and agreement. All questions were answered. Thank you for involving us in the care of your patient. Please call with any questions. Discussed and reviewed with . History of Present Illness Consult date: 03/26/18 Requesting physician: Oskar Bass Consult reason: chest pain, elevated troponin Chief complaint: shortness of breath, hypoxia History of present illness: Mr. Madrid is a 67 year old male with a relevant past medical history of ESRD on HD, COPD, HTN, CARMEN, HLD, CHF, PAD who presented to outside facility with complaints of hypoxia. Patient states he was unable to get his oxygen level up at home. Patient states at one point SpO2 was at 55%. Patient then called squad and was taken to [facility]. Patient denies chest pain at that time. Patient reports breathing today is improved. Patient reports yesterday had an episode of chest discomfort while laying in bed. Patient states discomfort lasted until he passed gas and then discomfort resolved. Denies exertional symptoms. Patient reports stress test about a year ago had a stress test at the [facility] that was negative. Past Med Surg Social Fam HX - Past Medical History Attestation: Yes The following information was validated with the patient. Source: patient, old records reviewed Medical history: arthritis, CHF, COPD, GERD, hyperlipidemia, hypertension, peripheral artery disease, renal disease Additional medical history: sleep apnea Psychiatric history: anxiety - Past Surgical History Surgical History: other Additional surgical history: dental - bronchoscopy x 2 - egd - right femoral stent - spine stimulator - Social History Smoking Status: Former smoker Smokeless Tobacco Status: No Alcohol use: rarely Drug use: none - Family History Mother History Unknown: Yes Adopted: No Family Member Ethnicity: Non- Living Status: Age at : 67 Hx Family Cardiac Disorders: No Hx Family Respiratory Disorders: (COPD) Hx Family Cancer: Yes (ovarian cancer) Hx Family GI Disorders: No Hx Family Endocrine Disorder: No Hx Family Neuromuscular Disorders: No Hx Family Neurologic Disorders: No Hx Family HEENT Disorders: No Hx Family Autoimmune Disorders: No Medications and Allergies Allopurinol [Zyloprim 100 MG] 200 mg PO DAILY 09/28/15 [History] Baclofen [Lioresal] 15 mg PO TID 09/28/15 [History] Budesonide/Formoterol 160/4.5 [Symbicort 160/4.5] 2 puff IH BID 09/28/15 [History] Meclizine HCl [Verticalm] 12.5 mg PO DAILY 09/28/15 [History] OxyCODONE/APAP 5/325 [Percocet 5/325 MG] 1 tab PO Q6HR PRN 09/28/15 [History] Pantoprazole Sodium [Protonix] 40 mg PO DAILY 09/28/15 [History] Albuterol Sulfate [Proair Hfa] 2 puff IH Q4H PRN 12/14/15 [History] Ondansetron [Zofran] 4 mg PO BID PRN 12/14/15 [History] Calcitriol 0.5 mcg PO DAILY 02/26/18 [History] Cyanocobalamin (Vitamin B-12) [Vitamin B12] 1,000 mcg PO DAILY 02/26/18 [History] Sennosides [Senna] 2 tab PO HS 02/26/18 [History] Tiotropium [place] [Spiriva Respimat] 2 puff IH DAILY 02/26/18 [History] Albuterol Neb [Proventil Neb] 1 puff IH Q4HR 03/14/18 [History] Atorvastatin [Lipitor] 40 mg PO HS 03/14/18 [History] Cholecalciferol (D-3) [Vitamin D] 3,000 unit PO DAILY 03/14/18 [History] Docusate Sodium [Dok] 100 mg PO DAILY 03/14/18 [History] Ferrous Sulfate [Iron] 325 mg PO DAILY 03/14/18 [History] Furosemide [Lasix] 20 mg PO DAILY PRN 03/14/18 [History] Magnesium Oxide [Magnesium] 400 mg PO DAILY 03/14/18 [History] FluocinoNIDE 0.05% CRM [Lidex] 1 appl TP TID 03/25/18 [History] Metoprolol [Lopressor] 12.5 mg PO BID 03/25/18 [History] Miconazole 2% ointment [Aloe [place] Antifungal Ointment] 1 applic TP DAILY 03/25/18 [History] Potassium Chloride [Klor-Con 10] 10 meq PO DAILY 03/25/18 [History] Pregabalin [Lyrica] 50 mg PO BID 03/25/18 [History] Allergy/AdvReac Type Severity Reaction Status Date / Time NSAIDS (Non-Steroidal Allergy See Verified 09/28/15 20:55 Anti-Inflamma Comments All Systems Review: The remainder of the systems were reviewed and are negative - Cardiovascular Cardiovascular: as per HPI, chest pain at rest, dyspnea at rest, dyspnea on exertion Physical Examination Vital Signs, Last 4 Hours Temp Pulse Resp BP Pulse Ox 03/26/18 11:47 98.6 F 73 18 109/53 92 03/26/18 11:16 16 93 General: Conversant, No Apparent Distress HEENT: Atraumatic, Normocephaly, Mucus Membranes Moist Neck: No JVD, Normal carotid pulses Cardiac: Reg Rate and Rhythm, Normal S1 and S2, No Murmur Lungs: Other (Lung sounds with expiratory wheezes throughout. ) Neuro: Alert and responsive, No focal deficits noted Abdomen: Soft, Non-Tender Skin: No rashes noted on visualized skin Musculoskeletal: No Chest Wall Tenderness Extremities: No Clubbing, No Cyanosis, No Edema, Normal Pulses Results 03/26/18 05:16 03/26/18 05:16 Lab Results Impressions Chest X-Ray 03/26/18 08:51 IMPRESSION: No acute cardiopulmonary disease. COPD with evidence of old calcified granulomatous disease. D/ / Edmundo Castillo MD / Edmundo Castillo MD Interpreting Provider: Edmundo Castillo MD Active Medications Albuterol Sulfate (Proventil Neb) 2.5 mg IH Q4HR [facility]; Protocol Stop: 09/24/18 20:01 Last Admin: 03/26/18 11:16 Dose: 2.5 mg Albuterol Sulfate (Proventil Neb) 2.5 mg IH Q2H PRN; Protocol PRN Reason: Shortness Of Breath/Wheezing Stop: 09/25/18 07:19 Allopurinol (Zyloprim) 200 mg PO DAILY [facility] Stop: 09/25/18 09:01 Last Admin: 03/26/18 08:30 Dose: 200 mg Atorvastatin Calcium (Lipitor) 40 mg PO HS [facility] Stop: 09/24/18 21:01 Last Admin: 03/25/18 21:26 Dose: 40 mg Baclofen (Lioresal) 15 mg PO TID [facility] Stop: 09/24/18 21:01 Last Admin: 03/26/18 08:31 Dose: 15 mg Budesonide/Formoterol Fumarate (Symbicort) 2 puff IH BIDR [facility]; Protocol Stop: 09/25/18 10:01 Last Admin: 03/26/18 07:31 Dose: 2 puff Calcitriol (Rocaltrol) 0.5 mcg PO DAILY [facility] Stop: 09/25/18 09:01 Last Admin: 03/26/18 08:30 Dose: 0.5 mcg Cyanocobalamin (Vitamin B12) 1,000 mcg PO DAILY [facility] Stop: 09/25/18 09:01 Last Admin: 03/26/18 08:30 Dose: 1,000 mcg Docusate Sodium (Colace) 100 mg PO DAILY [facility]; Protocol Stop: 09/25/18 09:01 Last Admin: 03/26/18 08:31 Dose: 100 mg Ferrous Sulfate (Ferrous Sulfate) 325 mg PO DAILY@0800 [facility] Stop: 09/25/18 08:01 Last Admin: 03/26/18 08:32 Dose: 325 mg Fluocinonide (Lidex) 1 appl TP TID [facility]; Protocol Stop: 09/24/18 21:01 Last Admin: 03/25/18 21:40 Dose: Not Given Furosemide (Lasix) 40 mg IVP BIDDIURETIC [facility] Stop: 09/24/18 21:01 Last Admin: 03/26/18 08:32 Dose: 40 mg Heparin Sodium (Porcine) (Heparin) 5,000 unit SQ Q12HCO [facility] Stop: 09/25/18 06:01 Last Admin: 03/26/18 05:00 Dose: 5,000 unit Sodium Chloride (0.9 % Sodium Chloride) 250 mls @ 937.5 mls/hr IVC .Q16M PRN PRN Reason: Hypotension Stop: 09/24/18 15:19 Sodium Chloride (0.9 % Sodium Chloride) 1,000 mls @ 0 mls/hr PRIME .Q0M [facility] Stop: 09/24/18 15:31 Magnesium Oxide (Mag-Ox) 400 mg PO DAILY [facility]; Protocol Stop: 09/25/18 09:01 Last Admin: 03/26/18 08:30 Dose: 400 mg Meclizine HCl (Antivert) 12.5 mg PO DAILY [facility] Stop: 09/25/18 09:01 Last Admin: 03/26/18 08:31 Dose: 12.5 mg Metoprolol Tartrate (Lopressor) 12.5 mg PO BID [facility] Stop: 09/24/18 21:01 Last Admin: 03/26/18 08:30 Dose: 12.5 mg Miconazole (Aloe [place] Antifungal Ointment) 1 appl TP DAILY [facility] Stop: 09/25/18 09:01 Naloxone HCl (Narcan) 0.4 mg IVP Q2MIN PRN PRN Reason: SEE COMMENTS Stop: 09/24/18 16:43 Omeprazole (Prilosec) 20 mg PO 0630 [facility] Stop: 09/25/18 06:31 Last Admin: 03/26/18 04:50 Dose: 20 mg Ondansetron HCl (Zofran Odt) 4 mg PO BID PRN PRN Reason: Nausea/Vomiting Last Admin: 03/26/18 05:00 Dose: 4 mg Oxycodone/Acetaminophen (Percocet 5/325) 1 each PO Q6HR PRN PRN Reason: Moderate Pain Stop: 09/24/18 18:17 Last Admin: 03/26/18 11:08 Dose: 1 each Potassium Chloride (Potassium Chloride) 10 meq PO DAILY [facility] Stop: 09/25/18 09:01 Last Admin: 03/26/18 08:30 Dose: 10 meq Pregabalin (Lyrica) 50 mg PO BID [facility] Stop: 09/24/18 21:01 Last Admin: 03/26/18 08:30 Dose: 50 mg Senna (Senna) 17.2 mg PO HS [facility] Stop: 09/24/18 21:01 Last Admin: 03/26/18 00:04 Dose: 17.2 mg Tiotropium [place] (Spiriva) 18 mcg IH DAILYR [facility] Stop: 09/25/18 10:01 Last Admin: 03/26/18 07:32 Dose: 18 mcg Vitamin D (Vitamin D) 1,000 unit PO DAILY [facility] Stop: 09/25/18 09:01 Last Admin: 03/26/18 08:31 Dose: 1,000 unit Laboratory Tests 03/25/18 03/26/18 03/26/18 18:11 05:16 05:16 WBC 21.2 H Hgb 10.7 L Creatinine 3.65 H Troponin I 0.05 H* 03/26/18 10:56 WBC Hgb Creatinine Troponin I 0.04 H* - Imaging and Cardiology Chest Xray: report reviewed Echo: report reviewed - EKG Interpretation EKG results cardiology: personally reviewed (ECG with SR, HR 81. PAC noted. QTC 508.), other (Telemetry reviewed with average HR previous 12 hours noted to be 77, SR. PVCs and PACs noted.) Consult Discharge Plan - Plan [facility]errals: [facility] [Primary Care Provider] - <Hermelinda Santiago - Last Filed: 03/26/18 18:01> - Attending Attestation Patient was seen and evaluated independently by me. Findings, assessment and plan were discussed at length with patient, questions answered. Agree with nurse practitioner's/resident's documentation. Addition as follows, 67 yoCM ho ESRD on HD, HFpEF, HTN, PAD, COPD on home O2. Consulted for minimal and flat trop elevation. P/w constipation in the past 2 wks with bloating and general abd pain and chest pain, which resolved after passing gas. More fluid overload recently requiring high UF (4L instead of 2L) with HD. ECG NSR. TTE pending. [facility] test [facility] 1 yr ago Not on ASA (NSAIDs allergy) A: mild troponin elevation, likely due to ADHF of HFpEF, fluid overload atypical chest pain P: if TTE unremarkable, no further ischemia w/u request [facility] stress test report fluid status mgn per nephrology constipation mgn per primary team Hermelinda Santiago MD, PhD Assessment and Plan Discussion w patient/family: The assessment and plan as outlined above was discussed with the patient and/or family members who expressed understanding and agreement. All questions were answered. Thank you for involving us in the care of your patient. Please call with any questions. History of Present Illness History of present illness: Mr. Madrid is a 67 year old male All Systems Review: The remainder of the systems were reviewed and are negative Physical Examination Vital Signs, Last 4 Hours Temp Pulse Resp BP Pulse Ox 03/26/18 17:20 97.6 F 70 15 99/59 100 03/26/18 15:37 16 95 Results 03/26/18 05:16 03/26/18 05:16 Lab Results 03/25/18 03/26/18 03/26/18 18:11 05:16 05:16 WBC 21.2 H Hgb 10.7 L Hct 32.7 L Plt Count 257 Sodium 136 Potassium 3.3 L Chloride 94 L Carbon Dioxide 28 BUN 29 H Creatinine 3.65 H Glucose 97 Calcium 9.4 Troponin I 0.05 H* 03/26/18 10:56 WBC Hgb Hct Plt Count Sodium Potassium Chloride Carbon Dioxide BUN Creatinine Glucose Calcium Troponin I 0.04 H*
[2018-03-26] MEDS: FluocinoNIDE 0.05% CRM 15 GM TUBE TP SCH ×3 (15:15→20:41)
[2018-03-26] MEDS: Miconazole 2% ointment 114 GM TUBE TP SCH (15:15)
[2018-03-26] MEDS: Furosemide 40 MG TABLET PO SCH (16:10)
[2018-03-27] MEDS: Albuterol 2.5 MG/3 ML NEBULIZER IH SCH ×5 (03:32→20:04)
[2018-03-27] MEDS: *HR* Heparin 5,000 UNIT/ML VIAL SQ SCH ×2 (05:56→17:48)
[2018-03-27] MEDS: *HR* OxyCODONE/APAP 5/325 TABLET PO PRN ×3 (05:57→20:41)
[2018-03-27] MEDS: Tiotropium 18 MCG inhalation IH SCH (07:29)
[2018-03-27] MEDS: Budesonide/Formoterol 160/4.5 1 PUFF INH IH SCH ×2 (07:30→20:04)
[2018-03-27 08:04] LABS: Hemoglobin 10.1 g/dL (12.9-16.9); Mean Corpuscular HGB Conc 31.6 g/dL (31.6-35.5); Mean Corpuscular Hemoglobin 30.7 pg (28.0-33.3); Mean Corpuscular Volume 97.3 fL (83.0-100.0); Mean Platelet Volume 11.1 fL (9.4-12.4); Platelet Count 238 K/mcL (140-400); Red Blood Count 3.29 M/mcL (4.19-5.50); Red Cell Distribution Width 17.2 % (11.5-14.5)
[2018-03-27 08:06] LABS: Calcium 9.1 mg/dL (8.6-10.3); Potassium 3.6 mEq/L (3.5-5.1)
[2018-03-27] MEDS: Baclofen 10 MG TABLET PO SCH ×3 (08:20→20:41)
[2018-03-27] MEDS: Magnesium Oxide 400 MG TABLET PO SCH (08:21)
[2018-03-27] MEDS: Furosemide 40 MG TABLET PO SCH ×2 (08:21→16:42)
[2018-03-27] MEDS: Cyanocobalamin (B-12) 1,000 MCG TABLET PO SCH (08:21)
[2018-03-27] MEDS: Cholecalciferol (D-3) 1,000 UNIT TABLET PO SCH (08:22)
[2018-03-27] MEDS: Pregabalin 50 MG CAPSULE PO SCH ×2 (08:26→20:41)
[2018-03-27] MEDS: FluocinoNIDE 0.05% CRM 15 GM TUBE TP SCH ×3 (08:26→20:43)
[2018-03-27] MEDS: Miconazole 2% ointment 114 GM TUBE TP SCH (08:26)
[2018-03-27 08:32] LABS: Anisocytosis 1+ (Not Present); Basophils # 0.4 K/mcL (0.0-0.2); Lymphocytes # 4.7 K/mcL (0.6-4.6); Neutrophils # 12.5 K/mcL (1.6-8.9); Platelet Estimate Normal (Normal)
[2018-03-27] MEDS ORDERED: 0.9 % Sodium Chloride 250 ML IVC PRN (08:50)
[2018-03-27] MEDS ORDERED: *HR* Heparin 10,000 UNIT/10 ML VIAL IV PRN (08:50)
[2018-03-27] MEDS ORDERED: 0.9 % Sodium Chloride 1,000 ML PRIME SCH (09:00)
--- NOTE | 2018-03-27 09:15 | Internal Med Progress Note ---
Date of Encounter: 03/27/18 Time of Encounter: 09:15 - Assessment and plan (1) Elevated brain natriuretic peptide (BNP) level Current Visit: Yes Status: Acute Assessment and plan: This is likely from a combination of renal failure and congestive heart failure. TTE is pending. The patient has a history of diastolic dysfunction. (2) Leukocytosis Current Visit: Yes Status: Acute Assessment and plan: This is doing likely from steroids. The chest x-ray shows no acute cardiopulmonary disease. Qualifiers: Leukocytosis type: bandemia Qualified Code(s): D72.825 - Bandemia (3) Troponin level elevated Current Visit: Yes Status: Acute Assessment and plan: Cardiology has seen patient. A TTE has been ordered. Cardiology recommends strict I and os. (4) Chronic respiratory failure Current Visit: Yes Status: Chronic Assessment and plan: Patient is on 4-6 L of oxygen per minute. Uses BiPAP machine at night and as needed. Qualifiers: Respiratory failure complication: hypoxia Qualified Code(s): J96.11 - Chronic respiratory failure with hypoxia (5) End stage renal disease Current Visit: No Status: Chronic Assessment and plan: HD on MWF, nephrology is on board (6) COPD (chronic obstructive pulmonary disease) Current Visit: No Status: Chronic Assessment and plan: Continue current medications such as nebulizer, budesonide and formoterol inhalations and oxygen. 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 Will obtain ammonia, magnesium and ABGs. - Time Spent With Patient 25 - 35 minutes (Total time spent is greater than 50% in coordination of care (as documented) at patient's floor/unit and/or counseling patient:) - Subjective Interval history: Patient is a 67-year-old male who was admitted for elevated troponin and respiratory distress. He is being followed by cardiology which has plans for performing an echocardiogram due to his previous history of CHF. Currently the patient is well maintained with BiPAP. He states that his breathing is better not to baseline. The patient is complaining off not able to hold things for long those D he has good strength in both upper extremities. - Constitutional Vitals: Temp Pulse Resp BP Pulse Ox 98.1 F 71 19 117/61 92 03/27/18 07:52 03/27/18 07:52 03/27/18 07:52 03/27/18 07:52 03/27/18 08:07 General appearance: Present: A&O X 3, no acute distress, answers questions appropriately Exam: CONSTITUTIONAL: patient appears as an age appropriate male in no acute distress. EYES Clear sclerae, bilateral pupils are equal, reactive to light. EMOI. RESPIRATORY: No accessory muscle use, bilateral mild expiratory wheeze. CARDIOVASCULAR: Regular heart rate, normal S1 and S2, no murmurs GASTROINTESTINAL: bowel sounds present, soft, no tenderness. MUSCULOSKELETAL: Joints in normal range of motion, no clubbing, no edema, no cyanosis. Bilateral peripheral pulses 2+. NEUROLOGIC: CN II to XII are grossly intact, no focal neurological deficit. Internal Medicine: Result - Labs CBC & Chem 7: 03/27/18 07:22 03/27/18 07:22 Labs: Short CBC 03/27/18 Range/Units 07:22 WBC 19.5 H (4.3-11.1) K/mcL Hgb 10.1 L (12.9-16.9) g/dL Hct 32.0 L (37.5-50.1) % Plt Count 238 (140-400) K/mcL Neutrophils # 12.5 H (1.6-8.9) K/mcL BMP 03/27/18 07:22 Sodium 136 Potassium 3.6 Chloride 96 L Carbon Dioxide 29 BUN 41 H Creatinine 5.32 H Glucose 98 Calcium 9.1 Cardiac Enzymes 03/26/18 03/27/18 Range/Units 10:56 03:59 Troponin I 0.04 H* 0.04 H* (< 0.04) ng/mL - Impressions Impressions Chest X-Ray 03/26/18 08:51 IMPRESSION: No acute cardiopulmonary disease. COPD with evidence of old calcified granulomatous disease. D/ / Edmundo Castillo MD / Edmundo Castillo MD Interpreting Provider: Edmundo Castillo MD Consult Discharge Plan - Plan [facility]errals: [facility] [Primary Care Provider] -
--- NOTE | 2018-03-27 09:51 | Nephrology Progress Note ---
Addendum entered and electronically signed by Kash Sharp MD 03/27/18 22:48: I examined this patient and discussed the medical decision-making with YOAN Terrazas. I agree with the documented findings, disposition and treatment plan as described except to the extent set forth below. She was seen on dialysis Original Note: Date of Encounter: 03/27/18 Time of Encounter: 09:49 - Assessment and Plan (1) ESRD (end stage renal disease) on dialysis Current Visit: Yes Status: Acute Current regimen is Sunday at [facility]. HD today. Avoid nephrotoxins and renal dose all medications. Accurate I&O. Renal diet when able to eat. (2) Acute on chronic kidney failure Current Visit: No Status: Acute Has recently progressed to ESRD with dialysis. Qualifiers: Acute renal failure type: unspecified Chronic kidney disease stage: stage 4 (severe) Qualified Code(s): N17.9 - Acute kidney failure, unspecified; N18.4 - Chronic kidney disease, stage 4 (severe) (3) COPD with exacerbation Current Visit: No Status: Acute Per primary. (4) Troponin level elevated Current Visit: Yes Status: Acute Trop is 0.04, per primary. Subjective Principal diagnosis: elevated trop/copd Interval history: Pt seen and examined, doing well. Admits shortness of breath is improved. Denies nausea/vomiting/diarrhea. Objective - Vital Signs Vital signs: Vital Signs Temp Pulse Resp BP Pulse Ox 03/27/18 08:07 92 03/27/18 07:52 98.1 F 71 19 117/61 92 03/27/18 03:48 97.9 F 76 18 128/78 93 03/27/18 03:34 18 93 03/26/18 23:37 18 93 03/26/18 23:30 98.6 F 64 17 154/67 93 03/26/18 19:33 17 93 03/26/18 19:12 98.8 F 61 17 102/66 91 03/26/18 17:20 97.6 F 70 15 99/59 100 03/26/18 15:37 16 95 03/26/18 11:47 98.6 F 73 18 109/53 92 03/26/18 11:16 16 93 Intake and Output 03/26/18 03/27/18 03/27/18 23:59 07:59 15:59 Intake Total 240 / 240 300 / 300 Output Total 50 / 50 Balance 190 / 190 300 / 300 Intake: Oral 240 / 240 300 / 300 Output: Urine 50 / 50 Other: Meal Dinner Breakfast Percent of Meal Consumed 100% 30% Weight 138 kg - General Appearance General appearance: Present: well-developed, well-nourished, obese EENT: Present: ATNC, hearing intact, vision intact Neck: Present: supple Respiratory: Present: clear Cardiology: Present: edema (Trace bilat lower extremity edema.), normal S1, normal S2 Dialysis Vascular Access: Venous Catheter (Tunneled Line, DSRG C/D/I) Gastrointestinal: Present: normoactive bowel sounds, no tenderness, no guarding Integumentary: Present: no rash, warm and dry Neurologic: Present: alert and oriented x3 Psychiatric: Present: mood/affect appropriate, cooperative - Lab 03/27/18 07:22 03/27/18 07:22 Most recent lab results Calcium 9.1 mg/dL (8.6-10.3) 03/27/18 07:22 Phosphorus 5.8 mg/dL (2.7-4.5) H 03/25/18 14:59 Magnesium 1.9 mg/dL (1.6-2.6) 03/25/18 14:59 Consult Discharge Plan - Plan Referrals: [facility] [Primary Care Provider] -
[2018-03-27 10:29] LABS: Hepatitis B Surface Antibody 0.09 mIU/mL; Hepatitis B Surface Antigen Nonreactive (Nonreactive)
--- NOTE | 2018-03-27 13:42 | Event Note ---
Date of Encounter: 03/27/18 Time of Encounter: 13:41 - Cardiology Event Note Awaiting TTE. Per 's note, if no significant findings on TTE, cardiology will sign off.
[2018-03-27 13:57] LABS: ABG Base Excess 4 mEq/L (-2 to 3); ABG HCO3 30 mEq/L (21-27); ABG Oxygen Saturation 96 % (95-98); ABG PCO2 49 mmHg (35-45); ABG PH 7.39 pH Units (7.32-7.45); ABG PO2 84 mmHg (85-104); ABG TCO2 31 mEq/L (20-26)
[2018-03-27] MEDS ORDERED: Perflutren Lipid Microsphere 1.3 ML in 0.9 % Sodium Chloride 8.7 ML IVP ONE (15:16)
[2018-03-27] MEDS ORDERED: *HR* LORazepam 2 MG/ML VIAL IM STA (15:37)
[2018-03-27] MEDS: Sennosides 8.6 MG TABLET PO SCH (20:41)
[2018-03-28] MEDS: Albuterol 2.5 MG/3 ML NEBULIZER IH SCH ×7 (00:28→23:36)
[2018-03-28 04:54] LABS: Hematocrit 35.1 % (37.5-50.1); Hemoglobin 10.8 g/dL (12.9-16.9); Mean Corpuscular HGB Conc 30.8 g/dL (31.6-35.5); Mean Corpuscular Volume 97.5 fL (83.0-100.0); Platelet Count 227 K/mcL (140-400); Red Cell Distribution Width 17.2 % (11.5-14.5)
[2018-03-28 05:09] LABS: Calcium 9.3 mg/dL (8.6-10.3); Potassium 3.9 mEq/L (3.5-5.1)
[2018-03-28 05:48] LABS: Eosinophils # 0.5 K/mcL (0.0-0.6); Lymphocytes # 3.8 K/mcL (0.6-4.6); Monocytes # 1.4 K/mcL (0.0-1.3); Neutrophils # 17.9 K/mcL (1.6-8.9); Platelet Estimate Normal (Normal); Reactive Lymphocytes Present (Not Present)
[2018-03-28 05:49] LABS: Anisocytosis 1+ (Not Present)
[2018-03-28] MEDS: *HR* Heparin 5,000 UNIT/ML VIAL SQ SCH ×2 (06:36→17:10)
[2018-03-28] MEDS: *HR* OxyCODONE/APAP 5/325 TABLET PO PRN ×3 (06:37→21:23)
[2018-03-28] MEDS: Budesonide/Formoterol 160/4.5 1 PUFF INH IH SCH ×2 (07:26→20:50)
[2018-03-28] MEDS: Tiotropium 18 MCG inhalation IH SCH (07:27)
[2018-03-28] MEDS: Magnesium Oxide 400 MG TABLET PO SCH (11:01)
[2018-03-28] MEDS: Cyanocobalamin (B-12) 1,000 MCG TABLET PO SCH (11:01)
[2018-03-28] MEDS: Cholecalciferol (D-3) 1,000 UNIT TABLET PO SCH (11:01)
--- NOTE | 2018-03-28 11:01 | Nephrology Progress Note ---
Addendum entered and electronically signed by Kash Sharp MD 03/28/18 23:50: I examined this patient and discussed the medical decision-making with YOAN Melgar. I agree with the documented findings, disposition and treatment plan as described except to the extent set forth below. Original Note: Date of Encounter: 03/28/18 Time of Encounter: 10:59 - Assessment and Plan (1) ESRD (end stage renal disease) on dialysis Current Visit: Yes Status: Acute Plan for HD tomorrow Continue strict I&Os Continue renal diet Avoid nephrotoxins if possible (2) Leukocytosis Current Visit: Yes Status: Acute WBC up to 23.5 Not currently on steroids; patient now states he is not sure if he even got any steroids outpatient Blood cultures ordered per primary team Qualifiers: Leukocytosis type: unspecified Qualified Code(s): D72.829 - Elevated white blood cell count, unspecified (3) COPD with exacerbation Current Visit: No Status: Acute per primary team (4) Carotid artery disease Current Visit: Yes Status: Acute Patient reports history of 90% carotid artery blockage per primary team Qualifiers: Laterality: unspecified laterality Qualified Code(s): I77.9 - Disorder of arteries and arterioles, unspecified Subjective Principal diagnosis: elevated trop/copd Interval history: Patient seen and examined. States he does not feel well but is vague with what is bothering him. Said yesterday whenever he turned his head 'everything went black' for a few seconds; reports history of 90% blockage in carotid artery. Objective - Vital Signs Vital signs: Vital Signs Temp Pulse Resp BP Pulse Ox 03/28/18 08:01 97.7 F 81 20 100/55 86 03/28/18 07:29 18 94 03/28/18 03:44 98.3 F 71 17 147/55 94 03/28/18 03:27 16 95 03/28/18 00:47 98.7 F 93 15 127/77 93 03/28/18 00:28 18 93 03/27/18 20:04 18 94 03/27/18 19:52 98.6 F 75 17 147/65 92 03/27/18 17:24 24 91 03/27/18 16:17 98.5 F 82 19 144/61 95 03/27/18 13:53 18 98 03/27/18 13:20 97.8 F 18 151/67 03/27/18 13:05 148/72 03/27/18 12:50 147/65 03/27/18 12:35 132/67 03/27/18 12:20 126/67 03/27/18 12:05 136/67 03/27/18 11:50 140/66 03/27/18 11:35 132/70 03/27/18 11:20 143/68 03/27/18 11:05 146/65 Intake and Output 03/27/18 03/28/18 03/28/18 23:59 07:59 15:59 Intake Total 240 / 240 Balance 240 / 240 Intake: Oral 240 / 240 Other: Meal Breakfast Percent of Meal Consumed 100% Blood Glucose* 129 226 - General Appearance General appearance: Present: well-developed, well-nourished, obese EENT: Present: ATNC, mucous membranes moist, hearing intact, vision intact Neck: Present: supple Respiratory: Present: clear Cardiology: Present: no edema, normal S1, normal S2 Dialysis Vascular Access: Venous Catheter Gastrointestinal: Present: no tenderness, no guarding, obese Integumentary: Present: warm and dry Neurologic: Present: alert and oriented x3 Psychiatric: Present: mood/affect appropriate, cooperative - Lab 03/28/18 04:25 03/28/18 04:25 Most recent lab results ABG pH 7.39 pH Units (7.32-7.45) 03/27/18 13:52 ABG pCO2 49 mmHg (35-45) H 03/27/18 13:52 ABG pO2 84 mmHg (85-104) L 03/27/18 13:52 ABG HCO3 30 mEq/L (21-27) H 03/27/18 13:52 ABG O2 Saturation 96 % (95-98) 03/27/18 13:52 Calcium 9.3 mg/dL (8.6-10.3) 03/28/18 04:25 Phosphorus 5.8 mg/dL (2.7-4.5) H 03/25/18 14:59 Magnesium 1.8 mg/dL (1.6-2.6) 03/27/18 09:30 Consult Discharge Plan - Plan Referrals: [facility] [Primary Care Provider] -
[2018-03-28] MEDS: Baclofen 10 MG TABLET PO SCH ×3 (11:02→21:21)
[2018-03-28] MEDS: Furosemide 40 MG TABLET PO SCH ×2 (11:02→17:10)
[2018-03-28] MEDS: Miconazole 2% ointment 114 GM TUBE TP SCH (11:03)
[2018-03-28] MEDS: Pregabalin 50 MG CAPSULE PO SCH ×2 (11:03→21:21)
[2018-03-28] MEDS: FluocinoNIDE 0.05% CRM 15 GM TUBE TP SCH ×3 (11:03→21:21)
--- NOTE | 2018-03-28 12:40 | Internal Med Progress Note ---
Hospitalist Progress Note - Encounter Date of Encounter: 03/28/18 Time of Encounter: 11:20 - Subjective Interval History: Patient seen and examined this morning. Complained on and off feeling of blacking out while in bed. No tele events. Feels axious when oxygen goes down. Currently saturating well and not tachycardic. Denies any other symptoms. Denies any chest pain, headache, weakness or tingling. - Exam Vitals: Temp Pulse Resp BP Pulse Ox 98 F 72 20 116/65 97 03/28/18 11:06 03/28/18 11:06 03/28/18 11:06 03/28/18 11:06 03/28/18 11:06 Exam: CONSTITUTIONAL: patient appears as an age appropriate male in no acute distress. EYES Clear sclerae, bilateral pupils are equal, reactive to light. EMOI. RESPIRATORY: No accessory muscle use, bilateral clear to auscultation, some crackles/rales. CARDIOVASCULAR: Regular heart rate, normal S1 and S2, no murmurs GASTROINTESTINAL: bowel sounds present, soft, no tenderness. MUSCULOSKELETAL: Joints in normal range of motion, no clubbing, no edema, no cyanosis. Bilateral peripheral pulses 2+. NEUROLOGIC: CN II to XII are grossly intact, no focal neurological deficit. - Assessment and Plan (1) Benign hypertension with chronic kidney disease, stage IV Current Visit: No Status: Chronic (2) Hyperlipidemia Current Visit: No Status: Chronic (3) COPD (chronic obstructive pulmonary disease) Current Visit: No Status: Chronic (4) Chronic respiratory failure Current Visit: Yes Status: Chronic (5) Leukocytosis Current Visit: Yes Status: Acute (6) ESRD (end stage renal disease) on dialysis Current Visit: Yes Status: Acute (7) DVT prophylaxis Current Visit: Yes Status: Acute (8) Troponin level elevated Current Visit: Yes Status: Acute (9) Elevated brain natriuretic peptide (BNP) level Current Visit: Yes Status: Acute - Summary of Assessment and Plan Summary of Assessment and Plan: Leukocytosis - Increased significantly today. Without fever, tachycardia - CXR on admission normal - Not on steroids currently. h/o being on steroids - Blood culture from peripheral and dialysis acess. UA ordered. - Unclear source. Dialysis access potential source. Elevated BNP - Likely from CHF and renal failure - ECHO with mild diastolic dysfunction, normal EF, Normal wall motion. - Negative -4.5 L with diuresis. On PO lasix. c/w same Troponin level elevated - Cardiology has seen patient. - ECHO with EF of 60%, mild DD, Normal wall motion. - Likely demand ischemia. Chronic respiratory failure - c/w 4-6 LPM supplemental oxygen. - c/w BiPAP machine at night and as needed. End stage renal disease - HD on MWF - Nephrology following COPD - c/w prn nebulizer, symbicort and oxygen. - Time Spent with Patient Total time spent is greater than 50% in coordination of care (as documented) at patient's floor/unit and/or counseling patient: Internal Medicine: Result - Labs CBC & Chem 7: 03/28/18 04:25 03/28/18 04:25 Labs: Short CBC 03/28/18 Range/Units 04:25 WBC 23.5 H (4.3-11.1) K/mcL Hgb 10.8 L (12.9-16.9) g/dL Hct 35.1 L (37.5-50.1) % Plt Count 227 (140-400) K/mcL Neutrophils # 17.9 H (1.6-8.9) K/mcL BMP 03/28/18 04:25 Sodium 136 Potassium 3.9 Chloride 99 Carbon Dioxide 24 BUN 27 H Creatinine 4.37 H Glucose 108 H Calcium 9.3 - ABG Interpretation ABG results: ABG ABG pH 7.39 pH Units (7.32-7.45) 03/27/18 13:52 ABG pCO2 49 mmHg (35-45) H 03/27/18 13:52 ABG pO2 84 mmHg (85-104) L 03/27/18 13:52 ABG O2 Saturation 96 % (95-98) 03/27/18 13:52 - Impressions Impressions Echocardiogram 03/26/18 09:09 Impressions: Technically challenging due to body habitus. Definity echo contrast was used. LVEF 60%. Mild left ventricular diastolic dysfunction. RV is suboptimally visualized. Function is normal by tissue Doppler. Mild tricuspid regurgitation. No pulmonary hypertension based on TR signal obtained. Left Ventricular Wall Motion: Rest Echo Findings The mid inferior lateral and basal inferior lateral thomas were not visualized. All other wall segments showed normal motion. Findings: Study Quality * Technically challenging due to body habitus. ECG Findings * Normal sinus rhythm. Left Ventricle * Mild left ventricular diastolic dysfunction. * Unable to measure LV chamber size or wall thickness. * There is no LV thrombus. * Definity echo contrast was used. * LVEF 60%. Right Ventricle * RV is suboptimally visualized. Function is normal by tissue Doppler. Left Atrium * Normal left atrial size. Right Atrium * Normal right atrial size. Aortic Valve * No aortic regurgitation. * Aortic valve not well visualized. * No aortic stenosis. Mitral Valve * No mitral regurgitation. * Mitral valve not well visualized. * No mitral stenosis. Tricuspid Valve * Tricuspid valve not well visualized. * Mild tricuspid regurgitation. * Estimated RA pressure is 3 mmHg. * Estimated RVSP is 24 mmHg. * No pulmonary hypertension. Pulmonic Valve * Pulmonic valve is not well visualized. * No pulmonic stenosis. * No pulmonic regurgitation. Pulmonary Artery * Pulmonary artery not well visualized. Aorta * Not well visualized. Pericardium * There is no pericardial effusion present. Interatrial Septum * No evidence of PFO by color Doppler. IVC * Normal IVC dimensions and inspiratory collapse. Consult Discharge Plan - Plan Referrals: [facility] [Primary Care Provider] - (2) Hyperlipidemia Qualifiers: Hyperlipidemia type: mixed hyperlipidemia Qualified Code(s): E78.2 - Mixed hyperlipidemia (3) COPD (chronic obstructive pulmonary disease) Qualifiers: COPD type: emphysema Emphysema type: panlobular Qualified Code(s): J43.1 - Panlobular emphysema (4) Chronic respiratory failure Qualifiers: Respiratory failure complication: hypoxia Qualified Code(s): J96.11 - Chronic respiratory failure with hypoxia (5) Leukocytosis Qualifiers: Leukocytosis type: unspecified Qualified Code(s): D72.829 - Elevated white blood cell count, unspecified
[2018-03-28] MEDS: Sennosides 8.6 MG TABLET PO SCH (21:21)
--- NOTE | 2018-03-28 21:28 | Electrocardiograph Report ---
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
[2018-03-28 23:44] LABS: Bilirubin,Urine Small (Negative); Blood,Urine Negative (Negative); Clarity,Urine Clear (Clear); Color,Urine Yellow (Yellow); Glucose,Urine (UA) Normal (Normal); Ketones,Urine Trace mg/dL (Negative); Leukocyte Esterase,Urine Small (Negative); Nitrite,Urine Negative (Negative); PH,Urine 5.5 pH Units (5.0-8.0); Protein,Urine Trace mg/dL (Neg-Trace); Urobilinogen,Urine Normal (Normal)
[2018-03-28 23:46] LABS: Bacteria,Urine None Seen per hpf (None-Few); Hyaline Casts,Urine Few per lpf (None-Few); RBC,Urine 0-3 per hpf (0-3); Squamous Epithelial Cell,Urine Many per lpf (None-Few); WBC,Urine 15-30 per hpf (0-3)
[2018-03-28 23:57] LABS: Yeast,Urine Moderate per hpf (None Seen)
[2018-03-29 03:24] LABS: Eosinophils # 0.5 K/mcL (0.0-0.6); Hematocrit 34.9 % (37.5-50.1); Hemoglobin 10.8 g/dL (12.9-16.9); Mean Corpuscular HGB Conc 30.9 g/dL (31.6-35.5); Mean Corpuscular Hemoglobin 30.3 pg (28.0-33.3); Mean Corpuscular Volume 97.8 fL (83.0-100.0); Mean Platelet Volume 11.3 fL (9.4-12.4); Platelet Count 219 K/mcL (140-400); Red Blood Count 3.57 M/mcL (4.19-5.50); Red Cell Distribution Width 17.2 % (11.5-14.5)
[2018-03-29] MEDS: Albuterol 2.5 MG/3 ML NEBULIZER IH SCH ×6 (03:36→23:14)
[2018-03-29 03:42] LABS: Calcium 9.6 mg/dL (8.6-10.3); Potassium 4.7 mEq/L (3.5-5.1)
[2018-03-29] MEDS: *HR* OxyCODONE/APAP 5/325 TABLET PO PRN ×3 (04:19→17:05)
[2018-03-29 04:23] LABS: Lymphocytes # 6.3 K/mcL (0.6-4.6); Monocytes # 0.9 K/mcL (0.0-1.3); Neutrophils # 14.9 K/mcL (1.6-8.9)
[2018-03-29 04:24] LABS: Anisocytosis 1+ (Not Present); Large Platelets Present (Not Present); Platelet Estimate Normal (Normal); Reactive Lymphocytes Present (Not Present)
[2018-03-29 04:25] LABS: Hypochromasia Present (Not Present); Target Cells 1+ (Not Present)
[2018-03-29] MEDS ORDERED: 0.9 % Sodium Chloride 250 ML IVC PRN (05:18)
[2018-03-29] MEDS ORDERED: *HR* Heparin 10,000 UNIT/10 ML VIAL IV PRN (05:18)
[2018-03-29] MEDS ORDERED: 0.9 % Sodium Chloride 1,000 ML PRIME SCH (05:30)
--- NOTE | 2018-03-29 07:50 | Nephrology Progress Note ---
Date of Encounter: 03/29/18 Time of Encounter: 08:30 - Assessment and Plan (1) ESRD (end stage renal disease) on dialysis Current Visit: Yes Status: Acute Dialyis note: ESRD on HD MWF and so is due for HD today (Sunday). Next HD would be planned for Sunday. I will be available this weekend, if needed. Otherwise, will plan to see pt again on Sunday. Subjective Principal diagnosis: elevated trop/copd Interval history: Patient was seen and examined on dialysis. He did not affirm any dialysis- related complaints Objective - Vital Signs Vital signs: Vital Signs Temp Pulse Resp BP Pulse Ox 03/29/18 04:36 20 95 03/29/18 01:01 98.3 F 75 18 141/71 92 03/28/18 23:36 18 92 03/28/18 23:13 17 94 03/28/18 20:55 97.9 F 71 18 156/75 90 03/28/18 16:53 98.6 F 76 20 107/43 96 03/28/18 15:40 18 93 03/28/18 11:24 18 96 03/28/18 11:06 98 F 72 20 116/65 97 03/28/18 10:50 94 03/28/18 08:01 97.7 F 81 20 100/55 86 Intake and Output 03/28/18 03/28/18 03/29/18 15:59 23:59 07:59 Intake Total 240 / 240 Balance 240 / 240 Intake: Oral 240 / 240 Other: Meal Breakfast Percent of Meal Consumed 100% Weight 137.1 kg Blood Glucose* 102 144 106 Patient Weight 03/29/18 23:59 Weight 137.1 kg - General Appearance General appearance: Present: well-developed, well-nourished, appears started age EENT: Present: ATNC, PERRL Cardiology: Present: normal S1, normal S2 Neurologic: Present: no focal deficit, no asterixis Psychiatric: Present: mood/affect appropriate, cooperative - Lab 03/29/18 02:39 03/29/18 02:39 Most recent lab results ABG pH 7.39 pH Units (7.32-7.45) 03/27/18 13:52 ABG pCO2 49 mmHg (35-45) H 03/27/18 13:52 ABG pO2 84 mmHg (85-104) L 03/27/18 13:52 ABG HCO3 30 mEq/L (21-27) H 03/27/18 13:52 ABG O2 Saturation 96 % (95-98) 03/27/18 13:52 Calcium 9.6 mg/dL (8.6-10.3) 03/29/18 02:39 Phosphorus 5.8 mg/dL (2.7-4.5) H 03/25/18 14:59 Magnesium 1.8 mg/dL (1.6-2.6) 03/27/18 09:30 Consult Discharge Plan - Plan Referrals: [facility] [Primary Care Provider] -
[2018-03-29] MEDS: Cholecalciferol (D-3) 1,000 UNIT TABLET PO SCH (10:35)
[2018-03-29] MEDS: Cyanocobalamin (B-12) 1,000 MCG TABLET PO SCH (10:35)
[2018-03-29] MEDS: Baclofen 10 MG TABLET PO SCH ×3 (10:35→20:30)
[2018-03-29] MEDS: Magnesium Oxide 400 MG TABLET PO SCH (10:35)
[2018-03-29] MEDS: Furosemide 40 MG TABLET PO SCH ×2 (10:36→17:05)
[2018-03-29] MEDS: Miconazole 2% ointment 114 GM TUBE TP SCH (10:37)
[2018-03-29] MEDS: Pregabalin 50 MG CAPSULE PO SCH ×2 (10:38→20:23)
[2018-03-29] MEDS: FluocinoNIDE 0.05% CRM 15 GM TUBE TP SCH ×3 (10:38→20:32)
[2018-03-29] MEDS: *HR* Heparin 5,000 UNIT/ML VIAL SQ SCH ×2 (10:39→17:08)
[2018-03-29] MEDS: Tiotropium 18 MCG inhalation IH SCH (11:15)
[2018-03-29] MEDS: Budesonide/Formoterol 160/4.5 1 PUFF INH IH SCH ×2 (11:15→19:21)
--- NOTE | 2018-03-29 11:56 | Internal Med Progress Note ---
Hospitalist Progress Note - Encounter Date of Encounter: 03/29/18 Time of Encounter: 10:23 - Subjective Interval History: Patient seen and examined this morning. Still with on and off feeling of blacking out while in bed. No tele events. Denies any other symptoms. Denies any chest pain, headache, weakness or tingling. - Exam Vitals: Temp Pulse Resp BP Pulse Ox 97.0 F L 75 18 161/61 95 03/29/18 09:55 03/29/18 01:01 03/29/18 09:55 03/29/18 09:55 03/29/18 04:36 Exam: General: In no acute distress. Conversant. Obese. Respiratory exam: CTAB. no accessory muscle use, rales, rhonchi, wheezes Cardiovascular exam: RRR, +S1, +S2. no murmur, gallop, rubs. GI/Abdominal exam: Non-tender, Non-distended, normal bowel sounds, soft, no peritoneal signs. Extremities exam: full ROM, 1+ pedal edema, palpable in b/l lower extremities. no calf tenderness. b/l chronic dermatitis changes. Mild erythema on Rt doshi Neurological exam: CN II-XII intact, AO X3, no focal deficits. no pronater d rift, facial droop, speech deficit Skin exam: ecchymosis on abdomen. - Assessment and Plan (1) Benign hypertension with chronic kidney disease, stage IV Current Visit: No Status: Chronic (2) Hyperlipidemia Current Visit: No Status: Chronic (3) COPD (chronic obstructive pulmonary disease) Current Visit: No Status: Chronic (4) Chronic respiratory failure Current Visit: Yes Status: Chronic (5) Leukocytosis Current Visit: Yes Status: Acute (6) ESRD (end stage renal disease) on dialysis Current Visit: Yes Status: Acute (7) DVT prophylaxis Current Visit: Yes Status: Acute (8) Troponin level elevated Current Visit: Yes Status: Acute (9) Elevated brain natriuretic peptide (BNP) level Current Visit: Yes Status: Acute - Summary of Assessment and Plan Summary of Assessment and Plan: Leukocytosis - still elevated. On/off bandemia - Without fever, tachycardia or hypotension - CXR on admission normal. Repeat CXR today - Not on steroids currently. h/o being on steroids - Blood culture from peripheral and dialysis access NGTD. UA with small esterase and wbc but poor sample and no bacteria. - Unclear source. Dialysis access potential source. - Hold abx for now. ID consulted. Elevated BNP - Likely from CHF and renal failure - ECHO with mild diastolic dysfunction, normal EF, Normal wall motion. - Negative -4.5 L with diuresis and UF. c/w lasix Troponin level elevated - Cardiology has seen patient. - ECHO with EF of 60%, mild DD, Normal wall motion. - Likely demand ischemia. Chronic respiratory failure - c/w 4-6 LPM supplemental oxygen. - c/w BiPAP machine at night and as needed. End stage renal disease - HD on MWF - Nephrology following COPD - c/w prn nebulizer, symbicort and oxygen. - Time Spent with Patient Total time spent is greater than 50% in coordination of care (as documented) at patient's floor/unit and/or counseling patient: Internal Medicine: Result - Labs CBC & Chem 7: 03/29/18 02:39 03/29/18 02:39 Labs: Short CBC 03/29/18 Range/Units 02:39 WBC 22.6 H (4.3-11.1) K/mcL Hgb 10.8 L (12.9-16.9) g/dL Hct 34.9 L (37.5-50.1) % Plt Count 219 (140-400) K/mcL Neutrophils # 14.9 H (1.6-8.9) K/mcL BMP 03/29/18 02:39 Sodium 134 L Potassium 4.7 Chloride 99 Carbon Dioxide 23 BUN 40 H Creatinine 5.38 H Glucose 108 H Calcium 9.6 Urine 03/28/18 Range/Units 21:25 Urine Color Yellow (Yellow) Urine Clarity Clear (Clear) Urine pH 5.5 (5.0-8.0) pH Units Ur Specific [place] 1.010 (1.010-1.025) Urine Protein Trace (Neg-Trace) mg/dL Urine Glucose (UA) Normal (Normal) mg/dL - ABG Interpretation ABG results: ABG ABG pH 7.39 pH Units (7.32-7.45) 03/27/18 13:52 ABG pCO2 49 mmHg (35-45) H 03/27/18 13:52 ABG pO2 84 mmHg (85-104) L 03/27/18 13:52 ABG O2 Saturation 96 % (95-98) 03/27/18 13:52 Consult Discharge Plan - Plan Referrals: [facility] [Primary Care Provider] - (2) Hyperlipidemia Qualifiers: Hyperlipidemia type: mixed hyperlipidemia Qualified Code(s): E78.2 - Mixed hyperlipidemia (3) COPD (chronic obstructive pulmonary disease) Qualifiers: COPD type: emphysema Emphysema type: panlobular Qualified Code(s): J43.1 - Panlobular emphysema (4) Chronic respiratory failure Qualifiers: Respiratory failure complication: hypoxia Qualified Code(s): J96.11 - Chronic respiratory failure with hypoxia (5) Leukocytosis Qualifiers: Leukocytosis type: unspecified Qualified Code(s): D72.829 - Elevated white blood cell count, unspecified
[2018-03-29] MEDS ORDERED: Lactulose Oral Soln 20 GM/30 ML UDC PO ONE (16:38)
--- NOTE | 2018-03-29 17:40 | Infectious Disease Consult ---
Date of Encounter: 03/29/18 Time of Encounter: 17:35 Assessment and Plan (1) Neutrophilic leukocytosis Status: Acute Assessment and plan: Etiology not clear. There is no mitzi obvious infectious source noted Patient with nonspecific complaints which appears to be like a viral exanthem. Differential diagnosis include (viral exanthem, ileus, intra-abdominal process or steroid use) Bacteremia is possible I guess but there is no obvious dialysis catheter infection noted on physical exam. Recommendations: Check respiratory infectious panel Get a KUB Await repeat cultures 4 from 03/28/2018 If clinically patient does not improve, consider checking lipase/amylase/LFTs and a CT abdomen and pelvis with oral contrast Continue to hold off antibiotics is he only has one SIRS criteria which is leukocytosis with no obvious source of infection and patient does not appear toxic Discussed at length with Dr. Morris (2) CARMEN (obstructive sleep apnea) Status: Chronic (3) ESRD (end stage renal disease) on dialysis Status: Acute (4) Morbid obesity Status: Chronic (5) CHF (congestive heart failure) Status: Suspected Qualifiers: Heart failure type: diastolic Heart failure chronicity: acute on chronic Qualified Code(s): I50.33 - Acute on chronic diastolic (congestive) heart failure (6) Carotid artery disease Status: Acute Qualifiers: Laterality: unspecified laterality Qualified Code(s): I77.9 - Disorder of arteries and arterioles, unspecified (7) Chronic pain syndrome Status: Acute (8) Constipation Status: Acute Qualifiers: Constipation type: unspecified constipation type Qualified Code(s): K59.00 - Constipation, unspecified Infectious Disease HPI - Data of Consult Patient: new to practice Consult date: 03/29/18 Requesting Physician: Coleen Morris MD [facility] - Consult Narrative Reason for consult: Persistent leukocytosis History of present illness: Mr. Madrid is a 67 year old male Patient is a 67-year-old gentleman who presented to [facility] on 03/25/2018 with shortness of breath. We are consulted on 03/29/2018 for persistent leukocytosis. Patient is a 67-year-old gentleman who has an extensive past medical history mentioned below including CHF, COPD, hyperlipidemia, hypertension, peripheral artery disease and chronic kidney disease on hemodialysis for about the last 2 months with a dialysis catheter in the right chest also apparently had liver issues since 2010 but they do not know why and he is really not able to give me much information and has morbid obesity with a BMI of 44.[address] [facility] [address] being sick for almost 1 week. Patient tells me that he lives with his significant other. He was having nausea or vomiting chills and just felt like he had the flu. He denies any sinus pressure no rhinorrhea no sore throat. Patient denied any diarrhea. Patient denied any rigors. Patient did have some cough and dyspnea on exertion but he tells me this chronic for him. Patient came to [facility] for evaluation. Since admission, patient has been afebrile with a MAXIMUM TEMPERATURE of 99.8, no tachycardia and no tachypnea. Presenting labs revealed a WBC initially 17.8 with 81% neutrophils 7% bands. Patient's WBC continued to creep up and today on 03/29/2018 his WBCs 22.6 with 64% neutrophils 2% bands 28% lymphocytes. Chemistry reveals chronic kidney disease with a urine for creatinine of 5.38. Patient had a chest x-ray on admission which was negative but today's chest x- ray reveals possible bronchitis. Patient had a MRSA screen which was negative. Had blood cultures 4 all of which came back negative. We were asked to evaluate the patient and make further recommendations. On further talking to the patient and review of system. Patient continues to have nausea and patient has not had a bowel movement in 7 days. Patient denies any URI symptoms. No headaches no meningeal signs. No pleuritic chest pain. Patient denies any abdominal pain and tells me he is passing gas. Patient has no urinary symptoms but he produces minimal urine. Patient denies any rash, decubitus ulcers or joint pain. Patient tells me that his significant other she did get sick with the same symptoms as him 3 days after he got sick. CC: Coleen Morris MD Past Med Surg Social Fam HX - Past Medical History Medical history: arthritis, CHF, COPD, GERD, hyperlipidemia, hypertension, peripheral artery disease, renal disease Additional medical history: sleep apnea Psychiatric history: anxiety - Past Surgical History Surgical History: other Additional surgical history: dental - bronchoscopy x 2 - egd - right femoral stent - spine stimulator - Social History Smoking Status: Former smoker Smokeless Tobacco Status: No Alcohol use: rarely Drug use: none - Family History Mother History Unknown: Yes Adopted: No Family Member Ethnicity: Non- Living Status: Age at : 67 Hx Family Cardiac Disorders: No Hx Family Respiratory Disorders: (COPD) Hx Family Cancer: Yes (ovarian cancer) Hx Family GI Disorders: No Hx Family Endocrine Disorder: No Hx Family Neuromuscular Disorders: No Hx Family Neurologic Disorders: No Hx Family HEENT Disorders: No Hx Family Autoimmune Disorders: No Infectious Disease-CN:Meds RX: Allopurinol [Zyloprim 100 MG] 200 mg PO DAILY 09/28/15 [History] RX: Baclofen [Lioresal] 15 mg PO TID 09/28/15 [History] RX: Budesonide/Formoterol 160/4.5 [Symbicort 160/4.5] 2 puff IH BID 09/28/15 [History] RX: Meclizine HCl [Verticalm] 12.5 mg PO DAILY 09/28/15 [History] RX: OxyCODONE/APAP 5/325 [Percocet 5/325 MG] 1 tab PO Q6HR PRN 09/28/15 [History] RX: Pantoprazole Sodium [Protonix] 40 mg PO DAILY 09/28/15 [History] RX: Albuterol Sulfate [Proair Hfa] 2 puff IH Q4H PRN 12/14/15 [History] RX: Ondansetron [Zofran] 4 mg PO BID PRN 12/14/15 [History] RX: Calcitriol 0.5 mcg PO DAILY 02/26/18 [History] RX: Cyanocobalamin (Vitamin B-12) [Vitamin B12] 1,000 mcg PO DAILY 02/26/18 [History] RX: Sennosides [Senna] 2 tab PO HS 02/26/18 [History] RX: Tiotropium [place] [Spiriva Respimat] 2 puff IH DAILY 02/26/18 [History] RX: Albuterol Neb [Proventil Neb] 1 puff IH Q4HR 03/14/18 [History] RX: Atorvastatin [Lipitor] 40 mg PO HS 03/14/18 [History] RX: Cholecalciferol (D-3) [Vitamin D] 3,000 unit PO DAILY 03/14/18 [History] RX: Docusate Sodium [Dok] 100 mg PO DAILY 03/14/18 [History] RX: Ferrous Sulfate [Iron] 325 mg PO DAILY 03/14/18 [History] RX: Furosemide [Lasix] 20 mg PO DAILY PRN 03/14/18 [History] RX: Magnesium Oxide [Magnesium] 400 mg PO DAILY 03/14/18 [History] Metoprolol [Lopressor] 12.5 mg PO BID 03/25/18 [History] Miconazole 2% ointment [Aloe [place] Antifungal Ointment] 1 applic TP DAILY 03/25/18 [History] Potassium Chloride [Klor-Con 10] 10 meq PO DAILY 03/25/18 [History] Pregabalin [Lyrica] 50 mg PO BID 03/25/18 [History] RX: FluocinoNIDE 0.05% CRM [Lidex] 1 appl TP TID 03/25/18 [History] Allergy/AdvReac Type Severity Reaction Status Date / Time NSAIDS (Non-Steroidal Allergy See Verified 09/28/15 20:55 Anti-Inflamma Comments Review of systems: 10 point review of systems done, negative other for what mentioned in history of present illness Exam - Constitutional Vitals: Temp Pulse Resp BP Pulse Ox 99.8 F H 84 16 100/59 96 03/29/18 17:00 03/29/18 17:00 03/29/18 17:00 03/29/18 17:00 03/29/18 17:00 Infectious Disease CN: Results - Labs CBC & Chem 7: 04/01/18 03:44 04/01/18 03:44 Cultures: Cultures 03/28/18 16:15 Blood Culture - Preliminary Port System Culture is incubating and being continuously monitored for growth. Final report to follow. 03/28/18 16:00 Blood Culture - Preliminary Port System Culture is incubating and being continuously monitored for growth. Final report to follow. 03/28/18 13:50 Blood Culture - Preliminary Peripheral Venipuncture Culture is incubating and being continuously monitored for growth. Final report to follow. 03/28/18 13:56 Blood Culture - Preliminary Peripheral Venipuncture Culture is incubating and being continuously monitored for growth. Final report to follow. Serology: Serology 03/29/18 03/28/18 03/27/18 Range/Units 15:30 21:25 09:30 Urine Color Yellow (Yellow) Urine Clarity Clear (Clear) Urine pH 5.5 (5.0-8.0) pH Units Ur Specific [place] 1.010 (1.010-1.025) Urine Protein Trace (Neg-Trace) mg/dL Urine Glucose (UA) Normal (Normal) mg/dL Urine Ketones Trace H (Negative) mg/dL Urine Blood Negative (Negative) Urine Nitrite Negative (Negative) Urine Bilirubin Small H (Negative) Urine Urobilinogen Normal (Normal) mg/dL Ur Leukocyte Esterase Small H (Negative) Urine Microscopic RBC 0-3 (0-3) per hpf Urine Microscopic WBC 15-30 H (0-3) per hpf Ur Squamous Epith Cells Many H (None-Few) per lpf Urine Bacteria None Seen (None-Few) per hpf Hyaline Casts Few (None-Few) per lpf Urine Yeast Moderate H (None Seen) per hpf Ur Culture Indicated? NO. A (NO) Nasal Screen MRSA (PCR) Negative (Negative) Hep Bs Antigen Nonreactive (Nonreactive) Hep Bs Antibody 0.09 mIU/mL Consult Discharge Plan - Plan [facility]errals: [facility] [Primary Care Provider] -
[2018-03-29 18:17] LABS: Adenovirus Not Detected (Not Detect); Bordetella Pertussis Not Detected (Not Detect); Chlamydophila pneumoniae Not Detected (Not Detect); Coronavirus 229E Not Detected (Not Detect); Coronavirus HKU1 Not Detected (Not Detect); Coronavirus NL63 Not Detected (Not Detect); Coronavirus OC43 Not Detected (Not Detect); Human Metapneumovirus Not Detected (Not Detect); Human Rhinovirus/Enterovirus Not Detected (Not Detect); Influenza A Subtype 2009 H1 Not Detected (Not Detect); Influenza A Untypeable Not Detected (Not Detect); Influenza B Not Detected (Not Detect); Mycoplasma pneumoniae Not Detected (Not Detect); Parainfluenza Virus 1 Not Detected (Not Detect); Parainfluenza Virus 2 Not Detected (Not Detect); Parainfluenza Virus 3 Not Detected (Not Detect); Parainfluenza Virus 4 Not Detected (Not Detect); Respiratory Syncytial Virus Not Detected (Not Detect)
[2018-03-29] MEDS: Sennosides 8.6 MG TABLET PO SCH (20:31)
[2018-03-30] MEDS: *HR* OxyCODONE/APAP 5/325 TABLET PO PRN ×4 (01:22→21:03)
[2018-03-30] MEDS: Albuterol 2.5 MG/3 ML NEBULIZER IH SCH ×6 (04:10→23:23)
[2018-03-30 05:33] LABS: Hematocrit 35.8 % (37.5-50.1); Mean Corpuscular HGB Conc 30.7 g/dL (31.6-35.5); Mean Corpuscular Hemoglobin 30.2 pg (28.0-33.3); Mean Corpuscular Volume 98.4 fL (83.0-100.0); Mean Platelet Volume 10.8 fL (9.4-12.4); Platelet Count 175 K/mcL (140-400); Red Blood Count 3.64 M/mcL (4.19-5.50); Red Cell Distribution Width 17.2 % (11.5-14.5)
[2018-03-30 05:50] LABS: Calcium 9.6 mg/dL (8.6-10.3); Potassium 4.6 mEq/L (3.5-5.1)
[2018-03-30 05:53] LABS: Anisocytosis 1+ (Not Present); Eosinophils # 0.5 K/mcL (0.0-0.6); Lymphocytes # 5.1 K/mcL (0.6-4.6); Monocytes # 0.9 K/mcL (0.0-1.3); Neutrophils # 15.3 K/mcL (1.6-8.9)
[2018-03-30 05:54] LABS: Platelet Estimate Normal (Normal)
[2018-03-30] MEDS: *HR* Heparin 5,000 UNIT/ML VIAL SQ SCH ×2 (06:15→17:11)
--- NOTE | 2018-03-30 07:39 | Event Note ---
Date of Encounter: 03/30/18 Time of Encounter: 07:38 Nephrology Chart Review/Update He last dialyzed on Sunday, and I would expect no extra dialysis needed this weekend, so his next HD is tentatively planned for Sunday. I will be available this weekend, if needed; and please feel free to call or page me with any questions. My colleague Dr. Zepeda will be on-call starting Sunday. Thank you.
[2018-03-30] MEDS: Ondansetron ODT 4 MG TAB.RAPDIS PO PRN (08:07)
[2018-03-30] MEDS: Furosemide 40 MG TABLET PO SCH ×2 (08:09→17:11)
[2018-03-30] MEDS: Cholecalciferol (D-3) 1,000 UNIT TABLET PO SCH (08:09)
[2018-03-30] MEDS: Cyanocobalamin (B-12) 1,000 MCG TABLET PO SCH (08:09)
[2018-03-30] MEDS: Pregabalin 50 MG CAPSULE PO SCH ×2 (08:10→21:02)
[2018-03-30] MEDS: Magnesium Oxide 400 MG TABLET PO SCH (08:11)
[2018-03-30] MEDS: Baclofen 10 MG TABLET PO SCH ×3 (08:11→21:03)
[2018-03-30] MEDS: Miconazole 2% ointment 114 GM TUBE TP SCH (08:12)
[2018-03-30] MEDS: FluocinoNIDE 0.05% CRM 15 GM TUBE TP SCH ×3 (08:12→21:03)
[2018-03-30 08:40] LABS: Magnesium 2.2 mg/dL (1.6-2.6)
[2018-03-30] MEDS: Budesonide/Formoterol 160/4.5 1 PUFF INH IH SCH ×2 (08:57→19:28)
[2018-03-30] MEDS: Tiotropium 18 MCG inhalation IH SCH (08:58)
--- NOTE | 2018-03-30 09:08 | Internal Med Progress Note ---
Hospitalist Progress Note - Encounter Date of Encounter: 03/30/18 Time of Encounter: 09:06 - Subjective Interval History: Patient seen and examined this morning. Complains of nausea since midnight. Had one episode of non bloody vomiting. Has not had BM. Passing gas. On and off feeling of blacking. Also complains of increased involutary movement of shoulder and arms which usually is present in his legs. Denies any chest pain, headache, weakness. Had some tingling after dialysis session. NO fever, chills, sob or chest pain. - Exam Vitals: Temp Pulse Resp BP Pulse Ox 98.1 F 72 20 123/51 95 03/30/18 07:20 03/30/18 07:20 03/30/18 09:01 03/30/18 07:20 03/30/18 09:01 Exam: General: In no acute distress. Conversant. Obese. Respiratory exam: CTAB. no accessory muscle use, rales, rhonchi, wheezes Cardiovascular exam: RRR, +S1, +S2. no murmur, gallop, rubs. GI/Abdominal exam: Non-tender, Non-distended, bowel sounds present, soft, no peritoneal signs. Extremities exam: full ROM, 1+ pedal edema, palpable in b/l lower extremities. no calf tenderness. b/l chronic dermatitis changes. Mild erythema on Rt dohsi Neurological exam: CN II-XII intact, AO X3, no focal deficits. no pronater drift, facial droop, speech deficit. No asterexis. Occasional myoclonus involving both UE and LE. Has decreased sensation on lower extremities. Skin exam: ecchymosis on abdomen. - Assessment and Plan (1) Benign hypertension with chronic kidney disease, stage IV Current Visit: No Status: Chronic (2) Hyperlipidemia Current Visit: No Status: Chronic (3) COPD (chronic obstructive pulmonary disease) Current Visit: No Status: Chronic (4) Chronic respiratory failure Current Visit: Yes Status: Chronic (5) Leukocytosis Current Visit: Yes Status: Acute (6) ESRD (end stage renal disease) on dialysis Current Visit: Yes Status: Acute (7) DVT prophylaxis Current Visit: Yes Status: Acute (8) Troponin level elevated Current Visit: Yes Status: Acute (9) Elevated brain natriuretic peptide (BNP) level Current Visit: Yes Status: Acute - Summary of Assessment and Plan Summary of Assessment and Plan: Leukocytosis - Without fever, tachycardia or hypotension - CXR on admission normal. Repeat CXR with possible bronchitis - Not on steroids currently. h/o being on steroids - Blood culture from peripheral and dialysis access NGTD. RIP negative. - KUB with ileus vs bowel obstruction. May be the cause of Leukocytosis. - Hold abx for now. ID following Ileus vs bowel obstruction - Add magnesium in morning labs. No other electrolyte abnormality - Will get CT abdomen and consult surgery - Keep NPO Occasional sensation of blacking out and myoclonus - Patients says has recent carotid which was 90% blocked - Carotids form 2016 with 60-79 stenosis on Rt and lt - Will repeat Carotid US - Myoclonus may be related to mild CO2 retention. Had some at baseline. c/w CPAP. - Will consider neurology evaluation if worsens. Elevated BNP - Likely from CHF and renal failure - ECHO with mild diastolic dysfunction, normal EF, Normal wall motion. - Negative -4.5 L with diuresis and UF. c/w lasix Troponin level elevated - Cardiology has seen patient. - ECHO with EF of 60%, mild DD, Normal wall motion. - Likely demand ischemia. Chronic respiratory failure - c/w 4-6 LPM supplemental oxygen. - c/w BiPAP machine at night and as needed. End stage renal disease - HD on MWF - Nephrology following COPD - c/w prn nebulizer, symbicort and oxygen. - Time Spent with Patient Total time spent is greater than 50% in coordination of care (as documented) at patient's floor/unit and/or counseling patient: Internal Medicine: Result - Labs CBC & Chem 7: 03/30/18 05:20 03/30/18 05:20 Labs: Short CBC 03/30/18 Range/Units 05:20 WBC 23.2 H (4.3-11.1) K/mcL Hgb 11.0 L (12.9-16.9) g/dL Hct 35.8 L (37.5-50.1) % Plt Count 175 (140-400) K/mcL Neutrophils # 15.3 H (1.6-8.9) K/mcL BMP 03/30/18 05:20 Sodium 137 Potassium 4.6 Chloride 98 Carbon Dioxide 29 BUN 31 H Creatinine 4.50 H Glucose 99 Calcium 9.6 - ABG Interpretation ABG results: ABG ABG pH 7.39 pH Units (7.32-7.45) 03/27/18 13:52 ABG pCO2 49 mmHg (35-45) H 03/27/18 13:52 ABG pO2 84 mmHg (85-104) L 03/27/18 13:52 ABG O2 Saturation 96 % (95-98) 03/27/18 13:52 - Impressions Impressions Chest X-Ray 03/29/18 08:22 IMPRESSION: Question of COPD. Increased lung markings at the bilateral infrahilar regions, may be related to bronchitis. D/ / Eliseo Rosenbaum MD / Eliseo Rosenbaum MD Interpreting Provider: Eliseo Rosenbaum MD X-Ray 03/29/18 16:36 IMPRESSION: 1. Limited examination, as described above. 2. Gaseous dilatation of multiple loops of large and small bowel throughout the abdomen, diagnostic considerations would favor ileus, partial small bowel obstruction is not excluded. D/ / Vijay Oakley / Vijay Oakley Interpreting Provider: Vijay Oakley Consult Discharge Plan - Plan [facility]errals: [facility] [Primary Care Provider] - (2) Hyperlipidemia Qualifiers: Hyperlipidemia type: mixed hyperlipidemia Qualified Code(s): E78.2 - Mixed hyperlipidemia (3) COPD (chronic obstructive pulmonary disease) Qualifiers: COPD type: emphysema Emphysema type: panlobular Qualified Code(s): J43.1 - Panlobular emphysema (4) Chronic respiratory failure Qualifiers: Respiratory failure complication: hypoxia Qualified Code(s): J96.11 - Chronic respiratory failure with hypoxia (5) Leukocytosis Qualifiers: Leukocytosis type: unspecified Qualified Code(s): D72.829 - Elevated white blood cell count, unspecified
--- NOTE | 2018-03-30 09:50 | General Surgery Consult Note ---
Date of Encounter: 03/30/18 Time of Encounter: 09:40 Assessment and Plan (1) Ileus Current Visit: Yes Status: Acute The patient is actively passing flatus. He has had multiple recent antibiotic regimens which raises the possibility of Clostridium difficile. The clinical pattern favors ileus in response to multiple medical problems in acute exacerbation. Physical examination is completely negative. CAT scan of the abdomen is pending. If there is any specific question about bowel obstruction we can always treat him with nasogastric tube and sequential small bowel follow- through. At this point I do not think that that is necessary. We will be glad to follow along with you. History of Present Illness Consult date: 03/30/18 Reason for consult: other (Nausea and vomiting) History of present illness: 67-year-old male with profound morbid obesity, congestive heart failure, COPD, end-stage renal disease on dialysis. He presented several days ago through the emergency room for elevated BNP and troponins. While in the hospital he has developed some nausea and vomiting. A flat plate of the abdomen demonstrated dilated colon and small bowel loops. I personally reviewed the acute abdominal series and indeed he does have predominantly dilated colon. He is been treated with multiple rounds of antibiotics for COPD exacerbation as well as steroid therapy. At time of examination this morning he is having nausea that has responded to Zofran therapy he had a single episode of vomiting this morning. He is not complaining of any abdominal pain. He is having flatus but no bowel movement. He is scheduled for CAT scan of the abdomen. He takes Percocet 4 times a day chronically. Past Med Surg Social Fam HX - Past Medical History Medical history: arthritis, CHF, COPD, GERD, hyperlipidemia, hypertension, peripheral artery disease, renal disease Additional medical history: sleep apnea Psychiatric history: anxiety - Past Surgical History Surgical History: other Additional surgical history: dental - bronchoscopy x 2 - egd - right femoral stent - spine stimulator - Social History Smoking Status: Former smoker Smokeless Tobacco Status: No Alcohol use: rarely Drug use: none - Family History Mother History Unknown: Yes Adopted: No Family Member Ethnicity: Non- Living Status: Age at : 67 Hx Family Cardiac Disorders: No Hx Family Respiratory Disorders: (COPD) Hx Family Cancer: Yes (ovarian cancer) Hx Family GI Disorders: No Hx Family Endocrine Disorder: No Hx Family Neuromuscular Disorders: No Hx Family Neurologic Disorders: No Hx Family HEENT Disorders: No Hx Family Autoimmune Disorders: No Medications and Allergies Allopurinol [Zyloprim 100 MG] 200 mg PO DAILY 09/28/15 [History] Baclofen [Lioresal] 15 mg PO TID 09/28/15 [History] Budesonide/Formoterol 160/4.5 [Symbicort 160/4.5] 2 puff IH BID 09/28/15 [History] Meclizine HCl [Verticalm] 12.5 mg PO DAILY 09/28/15 [History] OxyCODONE/APAP 5/325 [Percocet 5/325 MG] 1 tab PO Q6HR PRN 09/28/15 [History] Pantoprazole Sodium [Protonix] 40 mg PO DAILY 09/28/15 [History] Albuterol Sulfate [Proair Hfa] 2 puff IH Q4H PRN 12/14/15 [History] Ondansetron [Zofran] 4 mg PO BID PRN 12/14/15 [History] Calcitriol 0.5 mcg PO DAILY 02/26/18 [History] Cyanocobalamin (Vitamin B-12) [Vitamin B12] 1,000 mcg PO DAILY 02/26/18 [History] Sennosides [Senna] 2 tab PO HS 02/26/18 [History] Tiotropium [place] [Spiriva Respimat] 2 puff IH DAILY 02/26/18 [History] Albuterol Neb [Proventil Neb] 1 puff IH Q4HR 03/14/18 [History] Atorvastatin [Lipitor] 40 mg PO HS 03/14/18 [History] Cholecalciferol (D-3) [Vitamin D] 3,000 unit PO DAILY 03/14/18 [History] Docusate Sodium [Dok] 100 mg PO DAILY 03/14/18 [History] Ferrous Sulfate [Iron] 325 mg PO DAILY 03/14/18 [History] Furosemide [Lasix] 20 mg PO DAILY PRN 03/14/18 [History] Magnesium Oxide [Magnesium] 400 mg PO DAILY 03/14/18 [History] FluocinoNIDE 0.05% CRM [Lidex] 1 appl TP TID 03/25/18 [History] Metoprolol [Lopressor] 12.5 mg PO BID 03/25/18 [History] Miconazole 2% ointment [Aloe [place] Antifungal Ointment] 1 applic TP DAILY 03/25/18 [History] Potassium Chloride [Klor-Con 10] 10 meq PO DAILY 03/25/18 [History] Pregabalin [Lyrica] 50 mg PO BID 03/25/18 [History] Allergy/AdvReac Type Severity Reaction Status Date / Time NSAIDS (Non-Steroidal Allergy See Verified 09/28/15 20:55 Anti-Inflamma Comments Review of Systems All systems PM: The remainder of the systems were reviewed and are negative - Constitutional fatigue, snoring - Cardiovascular dyspnea, dyspnea on exertion - Respiratory dyspnea, dyspnea on exertion, wheezing, snoring - Gastrointestinal nausea, vomiting General Surgery Exam Initial Vital Signs Temp Pulse Resp BP Pulse Ox 97.7 F 85 18 130/69 93 03/25/18 11:59 03/25/18 11:59 03/25/18 11:59 03/25/18 11:59 03/25/18 11:59 - General physical appearance well developed, well nourished, moderate distress, no pain, chronically ill, other (Morbid obesity) - Neck no masses, no bruits, trachea midline, no lymphadectomy, no venous distension, other (Short thick neck) - Respiratory wheezing: bilateral (Bilateral decreased air motion and wheezing) - Cardiovascular Cardiovascular exam: Present: RRR, no murmurs/rubs/gallops - Abdomen Abdomen general surgery: Present: bowel sounds present (Spherical abdominal obesity. Normal bowel sounds.), soft, non tender - Neurologic Present: CN 2-12 grossly intact, normal coordination, normal sensation - Psychiatric Psychiatric general surgery: Present: appropriate, oriented to person, oriented to place, oriented to time, speech is normal, memory intact Exam Initial Vital Signs Temp Pulse Resp BP Pulse Ox 97.7 F 85 18 130/69 93 03/25/18 11:59 03/25/18 11:59 03/25/18 11:59 03/25/18 11:59 03/25/18 11:59 Results - Labs 03/30/18 05:20 03/30/18 05:20 Abnormal lab results WBC 23.2 K/mcL (4.3-11.1) H 03/30/18 05:20 RBC 3.64 M/mcL (4.19-5.50) L 03/30/18 05:20 Hgb 11.0 g/dL (12.9-16.9) L 03/30/18 05:20 Hct 35.8 % (37.5-50.1) L 03/30/18 05:20 MCHC 30.7 g/dL (31.6-35.5) L 03/30/18 05:20 RDW 17.2 % (11.5-14.5) H 03/30/18 05:20 Metamyelocytes % 2.0 % (0) H 03/26/18 05:16 Myelocytes % 6.0 % (0) H 03/30/18 05:20 Neutrophils # 15.3 K/mcL (1.6-8.9) H 03/30/18 05:20 Lymphocytes # 5.1 K/mcL (0.6-4.6) H 03/30/18 05:20 Basophils # 0.4 K/mcL (0.0-0.2) H 03/27/18 07:22 Nucleated RBCs/100 WBC 0.1 /100 WBC (0) H 03/26/18 05:16 Reactive Lymphocytes Present (Not Present) A 03/29/18 02:39 Large Platelets Present (Not Present) A 03/29/18 02:39 Hypochromasia Present (Not Present) A 03/29/18 02:39 Anisocytosis 1+ (Not Present) A 03/30/18 05:20 Target Cells 1+ (Not Present) A 03/29/18 02:39 ABG pCO2 49 mmHg (35-45) H 03/27/18 13:52 ABG pO2 84 mmHg (85-104) L 03/27/18 13:52 ABG HCO3 30 mEq/L (21-27) H 03/27/18 13:52 ABG Total CO2 31 mEq/L (20-26) H 03/27/18 13:52 ABG Base Excess 4 mEq/L (-2 to 3) H 03/27/18 13:52 BUN 31 mg/dL (8-23) H 03/30/18 05:20 Creatinine 4.50 mg/dL (0.70-1.30) H 03/30/18 05:20 Est GFR ( Amer) 16 (> 60) L 03/30/18 05:20 Est GFR (Non-Af Amer) 13 (> 60) L 03/30/18 05:20 POC Glucose 123 mg/dL (70-99) H 03/29/18 17:07 Phosphorus 5.8 mg/dL (2.7-4.5) H 03/25/18 14:59 Troponin I 0.04 ng/mL (< 0.04) H* 03/27/18 03:59 Urine Ketones Trace mg/dL (Negative) H 03/28/18 21:25 Urine Bilirubin Small (Negative) H 03/28/18 21:25 Ur Leukocyte Esterase Small (Negative) H 03/28/18 21:25 Urine Microscopic WBC 15-30 per hpf (0-3) H 03/28/18 21:25 Ur Squamous Epith Cells Many per lpf (None-Few) H 03/28/18 21:25 Urine Yeast Moderate per hpf (None Seen) H 03/28/18 21:25 Ur Culture Indicated? NO. (NO) A 03/28/18 21:25 Diabetes panel 03/30/18 Range/Units 05:20 Sodium 137 (136-145) mEq/L Potassium 4.6 (3.5-5.1) mEq/L Chloride 98 (98-107) mEq/L Carbon Dioxide 29 (23-29) mEq/L BUN 31 H (8-23) mg/dL Creatinine 4.50 H (0.70-1.30) mg/dL Glucose 99 (70-105) mg/dL Calcium 9.6 (8.6-10.3) mg/dL Calcium panel 03/30/18 Range/Units 05:20 Calcium 9.6 (8.6-10.3) mg/dL Pituitary panel 03/30/18 Range/Units 05:20 Sodium 137 (136-145) mEq/L Potassium 4.6 (3.5-5.1) mEq/L Chloride 98 (98-107) mEq/L Carbon Dioxide 29 (23-29) mEq/L BUN 31 H (8-23) mg/dL Creatinine 4.50 H (0.70-1.30) mg/dL Glucose 99 (70-105) mg/dL Calcium 9.6 (8.6-10.3) mg/dL Adrenal panel 03/30/18 Range/Units 05:20 Sodium 137 (136-145) mEq/L Potassium 4.6 (3.5-5.1) mEq/L Chloride 98 (98-107) mEq/L Carbon Dioxide 29 (23-29) mEq/L BUN 31 H (8-23) mg/dL Creatinine 4.50 H (0.70-1.30) mg/dL Glucose 99 (70-105) mg/dL Calcium 9.6 (8.6-10.3) mg/dL All other labs normal. - Imaging Abdominal x-ray: image reviewed (Predominately dilated colon. He also has some dilated small bowel loops.) Consult Discharge Plan - Plan [facility]errals: [facility] [Primary Care Provider] -
[2018-03-30] MEDS ORDERED: Isovue-370 500 ML INFUS..BTL PO ONE (09:59)
[2018-03-30] MEDS ORDERED: Ondansetron 4 MG/2 ML VIAL IVP PRN (11:40)
[2018-03-30] MEDS: Sennosides 8.6 MG TABLET PO SCH (21:02)
[2018-03-31 03:27] LABS: Hematocrit 32.5 % (37.5-50.1); Lymphocytes # 2.8 K/mcL (0.6-4.6); Mean Corpuscular HGB Conc 30.8 g/dL (31.6-35.5); Mean Corpuscular Hemoglobin 30.3 pg (28.0-33.3); Mean Corpuscular Volume 98.5 fL (83.0-100.0); Mean Platelet Volume 11.5 fL (9.4-12.4); Platelet Count 164 K/mcL (140-400); Red Cell Distribution Width 17.2 % (11.5-14.5)
[2018-03-31 03:51] LABS: Monocytes # 3.2 K/mcL (0.0-1.3); Neutrophils # 14.1 K/mcL (1.6-8.9); Platelet Estimate Normal (Normal); Reactive Lymphocytes Present (Not Present)
[2018-03-31 03:52] LABS: Anisocytosis 1+ (Not Present)
[2018-03-31] MEDS: Albuterol 2.5 MG/3 ML NEBULIZER IH SCH ×3 (04:52→11:35)
[2018-03-31] MEDS: *HR* Heparin 5,000 UNIT/ML VIAL SQ SCH ×2 (05:54→18:46)
[2018-03-31] MEDS: Baclofen 10 MG TABLET PO SCH ×3 (07:39→19:51)
[2018-03-31] MEDS: Pregabalin 50 MG CAPSULE PO SCH ×2 (07:42→19:52)
[2018-03-31] MEDS: Cholecalciferol (D-3) 1,000 UNIT TABLET PO SCH (07:45)
[2018-03-31] MEDS: Furosemide 40 MG TABLET PO SCH ×2 (07:46→17:12)
[2018-03-31] MEDS: Magnesium Oxide 400 MG TABLET PO SCH (07:46)
[2018-03-31] MEDS: Cyanocobalamin (B-12) 1,000 MCG TABLET PO SCH (07:46)
[2018-03-31] MEDS: *HR* OxyCODONE/APAP 5/325 TABLET PO PRN ×3 (07:54→22:50)
[2018-03-31 08:15] LABS: Albumin 3.8 g/dL (3.5-5.7); Albumin/Globulin Ratio 1.7 (1.1-2.2); Bilirubin,Total 0.7 mg/dL (0.3-1.0); Calcium 9.5 mg/dL (8.6-10.3); Globulin 2.2 g/dL (2.4-3.5); Potassium 4.7 mEq/L (3.5-5.1)
[2018-03-31] MEDS: Budesonide/Formoterol 160/4.5 1 PUFF INH IH SCH ×2 (08:17→22:19)
[2018-03-31 08:39] LABS: Hepatitis A Antibody IgM Nonreactive (Nonreactive); Hepatitis B Core IgM Nonreactive (Nonreactive); Hepatitis B Surface Antigen Nonreactive (Nonreactive); Hepatitis C Virus Antibody Nonreactive (Nonreactive)
[2018-03-31] MEDS: FluocinoNIDE 0.05% CRM 15 GM TUBE TP SCH ×3 (08:48→19:57)
--- NOTE | 2018-03-31 09:45 | General Surgery Progress Note ---
<DuongJovany S - Last Filed: 03/31/18 13:36> Date of Encounter: 03/31/18 Time of Encounter: 08:00 - Assessment and Plan (1) Ileus Current Visit: Yes Status: Acute CT abdomen/pelvis (03/30) showed no evidence of bowel obstruction May be 2/2 exacerbation of other medical problems Patient on antibiotics for COPD which raised some concern for Clostridium difficile Patient is passing flatus, still no BMs Patient on renal diet now On colace and senna for constipation On zofran for nausea On prilosec for GI prophylaxis Percocet for pain Ordered magnesium citrate for constipation today Patient is not a surgical candidate as there is no evidence of bowel obstruction on CT, patient has bowel sounds, and passing flatus, denies vomiting Surgery will sign off now, thank you for the consult Subjective Patient reports: no new complaints, pain is less, tolerating a regular diet, flatus, no bowel movement, afebrile Narrative: Patient denies BM, nausea, vomiting, abdominal pain. He has been passing flatus. He is tolerating renal diet. Objective Vital Signs - Last 8 Hours Temp Pulse Resp BP Pulse Ox 03/31/18 08:19 18 95 03/31/18 07:37 97.5 F L 74 19 130/71 94 03/31/18 05:42 98.9 F 73 17 145/63 93 03/31/18 04:52 18 98 Intake and Output 03/31/18 03/31/18 03/31/18 00:59 07:59 15:59 Intake Total 130 / 130 Output Total Balance 130 / 130 Intake: Oral 130 / 130 Output: Urine Other: Meal Breakfast Percent of Meal Consumed 25% Weight Blood Glucose* Patient Weight 03/31/18 22:59 Weight 138.3 kg - General physical appearance well developed - Respiratory normal expansion, normal respiratory effort - Cardiovascular Cardiovascular exam: Present: RRR - Abdomen Abdomen: Present: bowel sounds present, soft, tender (mildly) Hernia: umbilical - Integumentary no rash - Psychiatric oriented to time, oriented to person, oriented to place - Labs 03/31/18 02:47 03/31/18 07:43 Diabetes panel 03/31/18 Range/Units 07:43 Sodium 133 L (136-145) mEq/L Potassium 4.7 (3.5-5.1) mEq/L Chloride 97 L (98-107) mEq/L Carbon Dioxide 26 (23-29) mEq/L BUN 41 H (8-23) mg/dL Creatinine 5.07 H (0.70-1.30) mg/dL Glucose 94 (70-105) mg/dL Calcium 9.5 (8.6-10.3) mg/dL AST 18 (13-39) Units/L ALT 14 (7-52) Units/L Alkaline Phosphatase 53 (34-104) Units/L Albumin 3.8 (3.5-5.7) g/dL Calcium panel 03/31/18 Range/Units 07:43 Calcium 9.5 (8.6-10.3) mg/dL Albumin 3.8 (3.5-5.7) g/dL Pituitary panel 03/31/18 Range/Units 07:43 Sodium 133 L (136-145) mEq/L Potassium 4.7 (3.5-5.1) mEq/L Chloride 97 L (98-107) mEq/L Carbon Dioxide 26 (23-29) mEq/L BUN 41 H (8-23) mg/dL Creatinine 5.07 H (0.70-1.30) mg/dL Glucose 94 (70-105) mg/dL Calcium 9.5 (8.6-10.3) mg/dL Adrenal panel 03/31/18 Range/Units 07:43 Sodium 133 L (136-145) mEq/L Potassium 4.7 (3.5-5.1) mEq/L Chloride 97 L (98-107) mEq/L Carbon Dioxide 26 (23-29) mEq/L BUN 41 H (8-23) mg/dL Creatinine 5.07 H (0.70-1.30) mg/dL Glucose 94 (70-105) mg/dL Calcium 9.5 (8.6-10.3) mg/dL Total Bilirubin 0.7 (0.3-1.0) mg/dL AST 18 (13-39) Units/L ALT 14 (7-52) Units/L Alkaline Phosphatase 53 (34-104) Units/L Albumin 3.8 (3.5-5.7) g/dL - Imaging CT scan - abdomen: report reviewed CT scan - pelvis: report reviewed Consult Discharge Plan - Plan [facility]errals: [facility]Primary Care Provider[facility] - <Joon Gomez - Last Filed: 03/31/18 19:28> Date of Encounter: 03/31/18 - Assessment and Plan (1) Ileus Current Visit: Yes Status: Acute Objective Vital Signs - Last 8 Hours Temp Pulse Resp BP Pulse Ox 03/31/18 15:30 98.1 F 88 20 97/47 88 03/31/18 11:38 19 90 Intake and Output 03/31/18 03/31/18 03/31/18 07:59 15:59 23:59 Intake Total 130 / 130 Output Total 450 / 450 Balance -320 / -320 Intake: Oral 130 / 130 Output: Urine 450 / 450 Other: Meal Breakfast Percent of Meal Consumed 25% Stool Size Copious Stool Consistency loose Stool Color Brown Green # Bowel Movements 1 Blood Glucose* Patient Weight 03/31/18 22:59 Weight 138.3 kg - Labs 03/31/18 02:47 03/31/18 07:43 Diabetes panel 03/31/18 Range/Units 07:43 Sodium 133 L (136-145) mEq/L Potassium 4.7 (3.5-5.1) mEq/L Chloride 97 L (98-107) mEq/L Carbon Dioxide 26 (23-29) mEq/L BUN 41 H (8-23) mg/dL Creatinine 5.07 H (0.70-1.30) mg/dL Glucose 94 (70-105) mg/dL Calcium 9.5 (8.6-10.3) mg/dL AST 18 (13-39) Units/L ALT 14 (7-52) Units/L Alkaline Phosphatase 53 (34-104) Units/L Albumin 3.8 (3.5-5.7) g/dL Calcium panel 03/31/18 Range/Units 07:43 Calcium 9.5 (8.6-10.3) mg/dL Albumin 3.8 (3.5-5.7) g/dL Pituitary panel 03/31/18 Range/Units 07:43 Sodium 133 L (136-145) mEq/L Potassium 4.7 (3.5-5.1) mEq/L Chloride 97 L (98-107) mEq/L Carbon Dioxide 26 (23-29) mEq/L BUN 41 H (8-23) mg/dL Creatinine 5.07 H (0.70-1.30) mg/dL Glucose 94 (70-105) mg/dL Calcium 9.5 (8.6-10.3) mg/dL Adrenal panel 03/31/18 Range/Units 07:43 Sodium 133 L (136-145) mEq/L Potassium 4.7 (3.5-5.1) mEq/L Chloride 97 L (98-107) mEq/L Carbon Dioxide 26 (23-29) mEq/L BUN 41 H (8-23) mg/dL Creatinine 5.07 H (0.70-1.30) mg/dL Glucose 94 (70-105) mg/dL Calcium 9.5 (8.6-10.3) mg/dL Total Bilirubin 0.7 (0.3-1.0) mg/dL AST 18 (13-39) Units/L ALT 14 (7-52) Units/L Alkaline Phosphatase 53 (34-104) Units/L Albumin 3.8 (3.5-5.7) g/dL - Attending Attestation I examined this patient and my medical decision-making was reviewed with the Resident Physician. I agree with the documented findings, disposition and treatment plan as described except to the extent set forth below. The patient is seen and evaluated on morning rounds with resident. He appears to have normal bowel function. Abdominal discomfort is gone. Surgery will sign off Joon Gomez MD FACS
[2018-03-31] MEDS: Lactulose Oral Soln 20 GM/30 ML UDC PO SCH ×2 (10:42→19:50)
--- NOTE | 2018-03-31 11:05 | Vascular/Endovasc Consult Note ---
Date of Encounter: 03/31/18 Time of Encounter: 11:03 (symptomatic bilateral carotid arteries stenosis) Assessment and Plan (1) Carotid stenosis, bilateral Current Visit: Yes Status: Acute The patient has severe bilateral internal carotid artery stenosis by duplex. The left internal carotid artery is heavily calcified therefore the degree of stenosis by doppler is not very accurate. His symptoms are consistent with global cerebral hypoperfusion. The patient would benefit from carotid artery revascularization. I will recommend to obtain CT angiogram of the neck and head to plan his revascularization. The patient will need cardiac clearance before his carotid revascularization. The patient is on hemodialysis on Sunday, Sunday and via right internal jugular tunneled catheter. The patient is right handed. He would benefit from a permanent dialysis access placement. (2) Peripheral vascular disease Current Visit: Yes Status: Chronic The patient suffers from bilateral lower extremities claudication. He has femoral pulses but absent popliteal and pedal pulses. His feet are warm. He has normal motor and sensory function. The patient was counseled about losing weight. Exercising. He will need to be watched for his peripheral vascular disease at this stage. (3) Morbid obesity Current Visit: Yes Status: Chronic (4) Chronic kidney disease, stage IV (severe) Current Visit: No Status: Chronic The patient would benefit from permanent dialysis access placement as he is on hemodialysis via a right internal jugular tunneled catheter. - History of Present Illness Consult date: 03/31/18 Consult reason: Symptomatic bilateral internal carotid artery stenosis History of present illness: Mr. Madrid is a 67 year old male seen at the request of Dr. Morris for symptomatic high-grade stenosis of the internal carotid arteries bilaterally. The patient is known to have critical stenosis of the right internal carotid artery. High-grade stenosis of the left internal carotid artery. The patient claims that in the past week or so he has been complaining of bilateral visual abnormalities and weakness involving his upper and lower extremities. These episodes happen frequently in the day. They are relieved with bed rest. His symptoms are transient. He denies any speech abnormality. He denies any weakness in a particular limb. The patient has multiple medical problems. He is known to have end-stage renal disease on hemodialysis on Sunday, Sunday and Fridays secondary to NSAID intake. The patient is morbidly obese. He has a right internal jugular tunneled catheter. He suffers from severe peripheral vascular disease. He claims that he had a left iliac artery angioplasty in the past and right iliac stenting. His procedures were done at the [facility]. He claims that he was seen by somebody that the PR for his carotid artery stenosis. He was told that he has high-grade stenosis on the right but the left is widely open and that should compensate. He was not offered any surgical therapy. The patient is admitted to the hospital was respiratory decompensation. He is currently on CPAP. He is known to have coronary artery disease. His troponin was elevated on admission. He is morbidly obese. He ambulates with a cane. Past Med Surg Social Fam HX - Past Medical History Medical history: arthritis, CHF, COPD, GERD, hyperlipidemia, hypertension, peripheral artery disease, renal disease Additional medical history: sleep apnea Psychiatric history: anxiety - Past Surgical History Surgical History: LE stent(s), LE vascular intervention, other Additional surgical history: dental - bronchoscopy x 2 - egd - right femoral stent - spine stimulator - Social History Smoking Status: Former smoker Smokeless Tobacco Status: No Alcohol use: rarely Drug use: none Current living situation: Home - Independent Recent Out of Country Travel Within the Last 8 Weeks: No Exposure or Possible Exposure to Illness During Travel: No - Family History Mother History Unknown: Yes Adopted: No Family Member Ethnicity: Non- Living Status: Age at : 67 Hx Family Cardiac Disorders: No Hx Family Respiratory Disorders: (COPD) Hx Family Cancer: Yes (ovarian cancer) Hx Family GI Disorders: No Hx Family Endocrine Disorder: No Hx Family Neuromuscular Disorders: No Hx Family Neurologic Disorders: No Hx Family HEENT Disorders: No Hx Family Autoimmune Disorders: No Medications and Allergies RX: Allopurinol [Zyloprim 100 MG] 200 mg PO DAILY 09/28/15 [History] RX: Baclofen [Lioresal] 15 mg PO TID 09/28/15 [History] RX: Budesonide/Formoterol 160/4.5 [Symbicort 160/4.5] 2 puff IH BID 09/28/15 [History] RX: Meclizine HCl [Verticalm] 12.5 mg PO DAILY 09/28/15 [History] RX: OxyCODONE/APAP 5/325 [Percocet 5/325 MG] 1 tab PO Q6HR PRN 09/28/15 [History] RX: Pantoprazole Sodium [Protonix] 40 mg PO DAILY 09/28/15 [History] RX: Albuterol Sulfate [Proair Hfa] 2 puff IH Q4H PRN 12/14/15 [History] RX: Ondansetron [Zofran] 4 mg PO BID PRN 12/14/15 [History] RX: Calcitriol 0.5 mcg PO DAILY 02/26/18 [History] RX: Cyanocobalamin (Vitamin B-12) [Vitamin B12] 1,000 mcg PO DAILY 02/26/18 [History] RX: Sennosides [Senna] 2 tab PO HS 02/26/18 [History] RX: Tiotropium [place] [Spiriva Respimat] 2 puff IH DAILY 02/26/18 [History] RX: Albuterol Neb [Proventil Neb] 1 puff IH Q4HR 03/14/18 [History] RX: Atorvastatin [Lipitor] 40 mg PO HS 03/14/18 [History] RX: Cholecalciferol (D-3) [Vitamin D] 3,000 unit PO DAILY 03/14/18 [History] RX: Docusate Sodium [Dok] 100 mg PO DAILY 03/14/18 [History] RX: Ferrous Sulfate [Iron] 325 mg PO DAILY 03/14/18 [History] RX: Furosemide [Lasix] 20 mg PO DAILY PRN 03/14/18 [History] RX: Magnesium Oxide [Magnesium] 400 mg PO DAILY 03/14/18 [History] Metoprolol [Lopressor] 12.5 mg PO BID 03/25/18 [History] Miconazole 2% ointment [Aloe Fossil Antifungal Ointment] 1 applic TP DAILY 03/25/18 [History] Potassium Chloride [Klor-Con 10] 10 meq PO DAILY 03/25/18 [History] Pregabalin [Lyrica] 50 mg PO BID 03/25/18 [History] RX: FluocinoNIDE 0.05% CRM [Lidex] 1 appl TP TID 03/25/18 [History] Allergy/AdvReac Type Severity Reaction Status Date / Time NSAIDS (Non-Steroidal Allergy See Verified 09/28/15 20:55 Anti-Inflamma Comments All Systems Review: The remainder of the systems were reviewed and are negative - Constitutional Constitutional: headache(s), snoring, weakness, weight gain - EENT Eyes: blurred vision - Cardiovascular Cardiovascular: claudication, dyspnea at rest, dyspnea on exertion, leg edema, lightheadedness - Vascular Vascular: claudication, non cardiac stents, leg pain with exertion, lower extremity swelling, lower extremity ulcers - Respiratory Respiratory: dyspnea - Genitourinary Genitourinary: dysuria, prostate enlargement - Musculoskeletal Musculoskeletal: abnormal gait, muscle weakness - Neurological Neurological: syncope, other Exam Vital Signs, Last 4 Hours Temp Pulse Resp BP Pulse Ox 03/31/18 08:19 18 95 03/31/18 07:37 97.5 F L 74 19 130/71 94 General: Present: Conversant, No Apparent Distress HEENT: Present: Normocephaly, Trachea midline Neck: Present: Right Carotid bruit Lungs: Present: Decreased breath sounds Neuro: Present: Alert and responsive, No focal deficits noted, Cranial nerves grossly intact, Motor nerves grossly intact, Sensory nerves grossly intact Abdomen: Present: Soft Vascular: Present: Pulse, absent Consult Discharge Plan - Plan [facility]errals: [facility] [Primary Care Provider] -
[2018-03-31] MEDS ORDERED: Isovue-370 500 ML INFUS..BTL IV ONE (11:33)
[2018-03-31] MEDS: Tiotropium 18 MCG inhalation IH SCH (11:36)
[2018-03-31 11:39] LABS: Magnesium 2.2 mg/dL (1.6-2.6)
--- NOTE | 2018-03-31 11:39 | Internal Med Progress Note ---
Hospitalist Progress Note - Encounter Date of Encounter: 03/31/18 Time of Encounter: 09:44 - Subjective Interval History: Patient seen and examined this morning. Still on and off feeling of blacking. Also complains of increased involuntary movement of shoulder and arms. Denies any chest pain, headache, weakness. NO fever, chills, sob - Exam Vitals: Temp Pulse Resp BP Pulse Ox 97.5 F L 70 19 110/57 90 03/31/18 11:09 03/31/18 11:09 03/31/18 11:09 03/31/18 11:03/31/18 11:09 Exam: General: In no acute distress. Conversant. Obese. Respiratory exam: Good air entry. Occasionaly rhonchi and wheezes. Cardiovascular exam: RRR, +S1, +S2. no murmur, gallop, rubs. GI/Abdominal exam: Non-tender, Non-distended, bowel sounds present, soft, no peritoneal signs. Extremities exam: full ROM, 1+ pedal edema, palpable in b/l lower extremities. no calf tenderness. b/l chronic dermatitis changes. Mild erythema on Rt doshi Neurological exam: CN II-XII intact, AO X3, no focal deficits. no pronater drift, facial droop, speech deficit. No asterexis. Occasional myoclonus involving both UE and LE. Has decreased sensation on lower extremities. Skin exam: ecchymosis on abdomen. - Assessment and Plan (1) Benign hypertension with chronic kidney disease, stage IV Current Visit: No Status: Chronic (2) Hyperlipidemia Current Visit: No Status: Chronic (3) COPD (chronic obstructive pulmonary disease) Current Visit: No Status: Chronic (4) Chronic respiratory failure Current Visit: Yes Status: Chronic (5) Leukocytosis Current Visit: Yes Status: Acute (6) ESRD (end stage renal disease) on dialysis Current Visit: Yes Status: Acute (7) DVT prophylaxis Current Visit: Yes Status: Acute (8) Troponin level elevated Current Visit: Yes Status: Acute (9) Elevated brain natriuretic peptide (BNP) level Current Visit: Yes Status: Acute - Summary of Assessment and Plan Summary of Assessment and Plan: Carotid Stenosis - Carotid doppler with Severe bilateral stenosis - Will obtain CT angiogram. MR not good option given difficulty lying flat, body habitus and staying still. Patient agrees and understands the risk - Will hydrate before and after contrast to help preserve renal function. Will have dialysis tomorrow. Discussed with Nephrology. Leukocytosis - Without fever, tachycardia or hypotension - CXR on admission normal. Repeat CXR with possible bronchitis. - Not on steroids currently. h/o being on steroids. - Blood culture from peripheral and dialysis access NGTD. RIP negative. - CT without bowel obstruction or significant inflammation or stool impaction. Will give lactulose . - Hold abx for now and monitor - ID following Myoclonus - Likely metabolic from COPD and renal failure - f/u ABG - Will consult neurology. Elevated BNP - Likely from CHF and renal failure - ECHO with mild diastolic dysfunction, normal EF, Normal wall motion. - Negative -4.5 L with diuresis and UF. c/w lasix Troponin level elevated - Cardiology has seen patient. - ECHO with EF of 60%, mild DD, Normal wall motion. - Likely demand ischemia. - Negative Nuclear Stress test from October. Will discuss with cardiology tomorrow about cardiac risk fo carotid surgery.. Chronic respiratory failure - c/w 4-6 LPM supplemental oxygen. - c/w BiPAP at night and as needed. - Mild rhonchi/wheezing on exam. Saturating well on supplemental oxygen. Start duonebs instead of albuterol End stage renal disease - HD on MWF - Nephrology following COPD - c/w prn nebulizer, symbicort and oxygen. - Time Spent with Patient Total time spent is greater than 50% in coordination of care (as documented) at patient's floor/unit and/or counseling patient: Internal Medicine: Result - Labs CBC & Chem 7: 03/31/18 02:47 03/31/18 07:43 Labs: Short CBC 03/31/18 Range/Units 02:47 WBC 20.2 H (4.3-11.1) K/mcL Hgb 10.0 L (12.9-16.9) g/dL Hct 32.5 L (37.5-50.1) % Plt Count 164 (140-400) K/mcL Neutrophils # 14.1 H (1.6-8.9) K/mcL BMP 03/31/18 07:43 Sodium 133 L Potassium 4.7 Chloride 97 L Carbon Dioxide 26 BUN 41 H Creatinine 5.07 H Glucose 94 Calcium 9.5 Liver Function 03/31/18 Range/Units 07:43 Total Bilirubin 0.7 (0.3-1.0) mg/dL AST 18 (13-39) Units/L ALT 14 (7-52) Units/L Alkaline Phosphatase 53 (34-104) Units/L Albumin 3.8 (3.5-5.7) g/dL - ABG Interpretation ABG results: ABG ABG pH 7.39 pH Units (7.32-7.45) 03/27/18 13:52 ABG pCO2 49 mmHg (35-45) H 03/27/18 13:52 ABG pO2 84 mmHg (85-104) L 03/27/18 13:52 ABG O2 Saturation 96 % (95-98) 03/27/18 13:52 - Impressions Impressions Abdomen/Pelvis CT 03/30/18 07:31 IMPRESSION: No acute findings are seen to the abdomen or pelvis. Specifically there is no evidence for bowel obstruction. D/ / 03/30/2018 10:55:36 Madhav Hart MD / rob Interpreting Provider: Madhav Hart MD Consult Discharge Plan - Plan [facility]errals: [facility] [Primary Care Provider] - (2) Hyperlipidemia Qualifiers: Hyperlipidemia type: mixed hyperlipidemia Qualified Code(s): E78.2 - Mixed hyperlipidemia (3) COPD (chronic obstructive pulmonary disease) Qualifiers: COPD type: emphysema Emphysema type: panlobular Qualified Code(s): J43.1 - Panlobular emphysema (4) Chronic respiratory failure Qualifiers: Respiratory failure complication: hypoxia Qualified Code(s): J96.11 - Chronic respiratory failure with hypoxia (5) Leukocytosis Qualifiers: Leukocytosis type: unspecified Qualified Code(s): D72.829 - Elevated white blood cell count, unspecified
[2018-03-31 11:54] LABS: ABG Base Excess 3 mEq/L (-2 to 3); ABG HCO3 28 mEq/L (21-27); ABG Oxygen Saturation 95 % (95-98); ABG PCO2 44 mmHg (35-45); ABG PH 7.41 pH Units (7.32-7.45); ABG PO2 77 mmHg (85-104); ABG TCO2 29 mEq/L (20-26)
[2018-03-31] MEDS ORDERED: Ipratropium/Albuterol Neb 3 ML IH PRN (12:42)
[2018-03-31] MEDS: 0.9 % Sodium Chloride 1,000 ML IVC SCH (12:44)
--- NOTE | 2018-03-31 13:25 | Neurology - Consult Note ---
Date of Encounter: 03/31/18 Time of Encounter: 13:17 Assessment and Plan (1) Myoclonic jerking Current Visit: Yes Status: Acute These are likely secondary to worsening encephalopathy, in this care COPD exacerbation on top of ESRD. I agree that he does not have asterixis. These episodes occur on awakening and disappear during sleep and also they tend to be less significant as the day goes on and this suggests that the symptoms may be related to his breathing issues and oxygen or CO2 statues although his CO2 status is improving. These type of jerking movements are mostly seen in patients with medical encephalopathy and then to fluctuate in correlation with the severity of medical conditions. At the time of this interview, his mental status is intact and he clearly has no recurrent jerkings in his arms although occasional myoclonic jerking involving hip flexion are still present few times during the interview. This is unlikely epileptic seizure. I would recommend continuing medical and supportive care. Further imaging study would be off low yield. Do not feel that an EEG would be of value since background slowing is likely to be present due to ongoing ESRD. History of Present Illness Chief complaint: jerking movements HPI: Mr. Madrid is a 67 year old male with PMH significant for morbid obesity, CARMEN on BPAP therapy, ESRD on hemodialysis, lumbar DDD, neuropathy, PVD, COPD, CHF, cervical radiculopathy, HTN who developed increasing SOB. Neurology was consulted due to new onset of muscle jerking movements. The muscle jerking movements occurred few days ago which is new to him. He also has chronic, what he described as 'body cringe' in the past few years. The body cringe usually occur in his legs and he describes these as muscle spams. But the muscle jerking this time is different and it occurs in his arms and tend to occur in the morning hours. Can be constant and having it every 5 minutes. States that he was told when he sleeps he does not have the jerks but as soon as he wakes up in the morning he would jerk constantly. he states that this morning he was having the jerks and was seen by the medical doctor. At the present time, he seems alert, awake and his mental status is intact and he did not noticed any muscle jerking, other than small 'body cringe' that are of mild amplitude involving his hip flexors bilaterally. Denies any other neurological discomforts. He states that he had similar body jerks in the past about 4 years ago. He also has history of carotid artery stenosis. Past Med Surg Social Fam HX - Past Medical History Medical history: arthritis, CHF, COPD, GERD, hyperlipidemia, hypertension, peripheral artery disease, renal disease Additional medical history: sleep apnea Psychiatric history: anxiety - Past Surgical History Surgical History: LE stent(s), LE vascular intervention, other Additional surgical history: dental - bronchoscopy x 2 - egd - right femoral stent - spine stimulator - Social History Smoking Status: Former smoker Smokeless Tobacco Status: No Alcohol use: rarely Drug use: none - Family History Mother History Unknown: Yes Adopted: No Family Member Ethnicity: Non- Living Status: Age at : 67 Hx Family Cardiac Disorders: No Hx Family Respiratory Disorders: (COPD) Hx Family Cancer: Yes (ovarian cancer) Hx Family GI Disorders: No Hx Family Endocrine Disorder: No Hx Family Neuromuscular Disorders: No Hx Family Neurologic Disorders: No Hx Family HEENT Disorders: No Hx Family Autoimmune Disorders: No Medications and Allergies Allopurinol [Zyloprim 100 MG] 200 mg PO DAILY 09/28/15 [History] Baclofen [Lioresal] 15 mg PO TID 09/28/15 [History] Budesonide/Formoterol 160/4.5 [Symbicort 160/4.5] 2 puff IH BID 09/28/15 [History] Meclizine HCl [Verticalm] 12.5 mg PO DAILY 09/28/15 [History] OxyCODONE/APAP 5/325 [Percocet 5/325 MG] 1 tab PO Q6HR PRN 09/28/15 [History] Pantoprazole Sodium [Protonix] 40 mg PO DAILY 09/28/15 [History] Albuterol Sulfate [Proair Hfa] 2 puff IH Q4H PRN 12/14/15 [History] Ondansetron [Zofran] 4 mg PO BID PRN 12/14/15 [History] Calcitriol 0.5 mcg PO DAILY 02/26/18 [History] Cyanocobalamin (Vitamin B-12) [Vitamin B12] 1,000 mcg PO DAILY 02/26/18 [History] Sennosides [Senna] 2 tab PO HS 02/26/18 [History] Tiotropium [place] [Spiriva Respimat] 2 puff IH DAILY 02/26/18 [History] Albuterol Neb [Proventil Neb] 1 puff IH Q4HR 03/14/18 [History] Atorvastatin [Lipitor] 40 mg PO HS 03/14/18 [History] Cholecalciferol (D-3) [Vitamin D] 3,000 unit PO DAILY 03/14/18 [History] Docusate Sodium [Dok] 100 mg PO DAILY 03/14/18 [History] Ferrous Sulfate [Iron] 325 mg PO DAILY 03/14/18 [History] Furosemide [Lasix] 20 mg PO DAILY PRN 03/14/18 [History] Magnesium Oxide [Magnesium] 400 mg PO DAILY 03/14/18 [History] FluocinoNIDE 0.05% CRM [Lidex] 1 appl TP TID 03/25/18 [History] Metoprolol [Lopressor] 12.5 mg PO BID 03/25/18 [History] Miconazole 2% ointment [Aloe [place] Antifungal Ointment] 1 applic TP DAILY 03/25/18 [History] Potassium Chloride [Klor-Con 10] 10 meq PO DAILY 03/25/18 [History] Pregabalin [Lyrica] 50 mg PO BID 03/25/18 [History] Allergy/AdvReac Type Severity Reaction Status Date / Time NSAIDS (Non-Steroidal Allergy See Verified 09/28/15 20:55 Anti-Inflamma Comments All Systems: The remainder of the systems were reviewed and are negative Physical Examination - Vital Signs Vital Signs: Initial Vital Signs Temp Pulse Resp BP Pulse Ox 97.7 F 85 18 130/69 93 03/25/18 11:59 03/25/18 11:59 03/25/18 11:59 03/25/18 11:59 03/25/18 11:59 - Constitutional General appearance: comfortable, chronically ill - Neurologic Sensorimotor examination: other (Grossly intact) Motor examination - right side: 09/29: deltoids, biceps, triceps, wrist flexion, wrist extension, tooth cutter spur, hip flexors, tibialis Anterior, quadriceps, toe extension (EHL), plantarflexion Motor examination - left side: 09/29: deltoids, biceps, triceps, wrist flexion, wrist extension, hip flexors, tooth cutter spur, quadriceps, tibialis Anterior, toe extension (EHL), plantarflexion Detailed sensory examination: other (Grossl intact) Posture: other (None) Reflex and gait examination: other (Gait not assessed) Reflexes: Biceps: 0, Triceps: 0, Brachioradialis: 0, Patella: 0, Achilles: 0 Mental Status Examination: awake, alert, oriented to person, oriented to place, oriented to time, follows commands appropriately, answers questions appropriately, no agnosia, no aphasia, no aproxia Cranial nerve examination: PERRL, EOMI, visual cerda intact, corneal reflexes brisk symmetrically, sensory to face intact, mastication intact, no facial asymmetry is present, no dysarthria, hearing is intact symmetrically, soft palate elevates bilaterally upon phonation, gag reflex intact, flexes SCM and trapezius muscles symmetrically with full power, tongue protrudes midline, no atrophy or facial fasiculations present Results - Laboratory Findings CBC and BMP: 03/31/18 02:47 03/31/18 07:43 Abnormal lab findings: Abnormal lab results WBC 20.2 K/mcL (4.3-11.1) H 03/31/18 02:47 RBC 3.30 M/mcL (4.19-5.50) L 03/31/18 02:47 Hgb 10.0 g/dL (12.9-16.9) L 03/31/18 02:47 Hct 32.5 % (37.5-50.1) L 03/31/18 02:47 MCHC 30.8 g/dL (31.6-35.5) L 03/31/18 02:47 RDW 17.2 % (11.5-14.5) H 03/31/18 02:47 Metamyelocytes % 2.0 % (0) H 03/26/18 05:16 Myelocytes % 6.0 % (0) H 03/30/18 05:20 Neutrophils # 14.1 K/mcL (1.6-8.9) H 03/31/18 02:47 Monocytes # 3.2 K/mcL (0.0-1.3) H 03/31/18 02:47 Basophils # 0.4 K/mcL (0.0-0.2) H 03/27/18 07:22 Nucleated RBCs/100 WBC 0.1 /100 WBC (0) H 03/26/18 05:16 Reactive Lymphocytes Present (Not Present) A 03/31/18 02:47 Large Platelets Present (Not Present) A 03/29/18 02:39 Hypochromasia Present (Not Present) A 03/29/18 02:39 Anisocytosis 1+ (Not Present) A 03/31/18 02:47 Target Cells 1+ (Not Present) A 03/29/18 02:39 ABG pO2 77 mmHg (85-104) L 03/31/18 11:49 ABG HCO3 28 mEq/L (21-27) H 03/31/18 11:49 ABG Total CO2 29 mEq/L (20-26) H 03/31/18 11:49 Sodium 133 mEq/L (136-145) L 03/31/18 07:43 Chloride 97 mEq/L (98-107) L 03/31/18 07:43 BUN 41 mg/dL (8-23) H 03/31/18 07:43 Creatinine 5.07 mg/dL (0.70-1.30) H 03/31/18 07:43 Est GFR ( Amer) 14 (> 60) L 03/31/18 07:43 Est GFR (Non-Af Amer) 11 (> 60) L 03/31/18 07:43 POC Glucose 100 mg/dL (70-99) H 03/30/18 16:34 Phosphorus 5.8 mg/dL (2.7-4.5) H 03/25/18 14:59 Troponin I 0.04 ng/mL (< 0.04) H* 03/27/18 03:59 Serum Total Protein 6.0 g/dL (6.4-8.9) L 03/31/18 07:43 Globulin 2.2 g/dL (2.4-3.5) L 03/31/18 07:43 Urine Ketones Trace mg/dL (Negative) H 03/28/18 21:25 Urine Bilirubin Small (Negative) H 03/28/18 21:25 Ur Leukocyte Esterase Small (Negative) H 03/28/18 21:25 Urine Microscopic WBC 15-30 per hpf (0-3) H 03/28/18 21:25 Ur Squamous Epith Cells Many per lpf (None-Few) H 03/28/18 21:25 Urine Yeast Moderate per hpf (None Seen) H 03/28/18 21:25 Ur Culture Indicated? NO. (NO) A 03/28/18 21:25 Consult Discharge Plan - Plan [facility]errals: [facility] [Primary Care Provider] -
[2018-03-31] MEDS: Ipratropium/Albuterol Neb 3 ML IH SCH ×3 (14:14→22:19)
[2018-03-31] MEDS: Miconazole 2% ointment 114 GM TUBE TP SCH (16:04)
[2018-03-31] MEDS: Sennosides 8.6 MG TABLET PO SCH (19:51)
[2018-04-01] MEDS: 0.9 % Sodium Chloride 1,000 ML IVC SCH (03:00)
[2018-04-01] MEDS: Ipratropium/Albuterol Neb 3 ML IH SCH ×4 (04:15→21:45)
[2018-04-01 04:25] LABS: Hematocrit 31.8 % (37.5-50.1); Mean Corpuscular HGB Conc 31.4 g/dL (31.6-35.5); Mean Corpuscular Hemoglobin 30.9 pg (28.0-33.3); Mean Corpuscular Volume 98.1 fL (83.0-100.0); Mean Platelet Volume 11.7 fL (9.4-12.4); Platelet Count 179 K/mcL (140-400); Red Blood Count 3.24 M/mcL (4.19-5.50); Red Cell Distribution Width 17.1 % (11.5-14.5)
[2018-04-01 04:29] LABS: Calcium 9.3 mg/dL (8.6-10.3); Potassium 4.5 mEq/L (3.5-5.1)
[2018-04-01 04:51] LABS: Eosinophils # 0.3 K/mcL (0.0-0.6); Hypochromasia Present (Not Present); Lymphocytes # 2.8 K/mcL (0.6-4.6); Monocytes # 0.3 K/mcL (0.0-1.3); Neutrophils # 12.7 K/mcL (1.6-8.9); Platelet Estimate Normal (Normal); Reactive Lymphocytes Present (Not Present)
[2018-04-01] MEDS: *HR* Heparin 5,000 UNIT/ML VIAL SQ SCH ×2 (05:39→18:01)
[2018-04-01] MEDS ORDERED: 0.9 % Sodium Chloride 250 ML IVC PRN (05:56)
[2018-04-01] MEDS: Baclofen 10 MG TABLET PO SCH ×3 (08:03→19:55)
[2018-04-01] MEDS: Furosemide 40 MG TABLET PO SCH ×2 (08:03→16:41)
[2018-04-01] MEDS: Pregabalin 50 MG CAPSULE PO SCH ×2 (08:04→19:56)
[2018-04-01] MEDS: Magnesium Oxide 400 MG TABLET PO SCH (08:05)
[2018-04-01] MEDS: Cholecalciferol (D-3) 1,000 UNIT TABLET PO SCH (08:06)
[2018-04-01] MEDS: Lactulose Oral Soln 20 GM/30 ML UDC PO SCH ×2 (08:06→19:55)
[2018-04-01] MEDS: Cyanocobalamin (B-12) 1,000 MCG TABLET PO SCH (08:06)
[2018-04-01] MEDS: Budesonide/Formoterol 160/4.5 1 PUFF INH IH SCH ×2 (08:27→21:45)
--- NOTE | 2018-04-01 08:30 | Neurology Progress Note ---
Date of Encounter: 04/01/18 Time of Encounter: 09:53 Assessment and Plan (1) Myoclonic jerking Current Visit: Yes Status: Acute patient continues to have myoclonic jerking at hip rate of .2 hertz he is alert and oriented x3 this is likely related to his medical conditions of ESRD,copd. no additional testing is needed at this point. (2) Numbness of left lower extremity Current Visit: Yes Status: Acute patient reported new onset left lower extremity numbness started this morning repeat CT head negative neuro exam shows symmetrical decreased light touch below b/l patella and pin prick below b/l ankle which is chronic no additional testing required Subjective Principal diagnosis: severe b/l carotid stenosis Interval history: Patient reports feeling lightheaded today. He also had new onset LLE numbness from left hip down to toe and primary team obtained CT head which was negative for acute changes and no change from CT head scan from admission. He continues to have myoclonic jerking of his hips at .2hertz. Objective - Constitutional Vitals: Temp Pulse Resp BP Pulse Ox 97.5 F L 71 18 122/55 90 04/01/18 07:36 04/01/18 07:36 04/01/18 07:36 04/01/18 07:36 04/01/18 08:21 - Neurological Exam Sensorimotor examination: Present: other (Grossly intact) Motor examination - right side: 5/5: deltoids, biceps, triceps, wrist flexion, wrist extension, endoscopy technician, hip flexors, tibialis Anterior, quadriceps, toe extension (EHL), plantarflexion Motor examination - left side: 5/5: deltoids, biceps, triceps, wrist flexion, wrist extension, hip flexors, endoscopy technician, quadriceps, tibialis Anterior, toe extension (EHL), plantarflexion Sensation intact: Present: light touch (patient has decreased sensation below b/l knees with light touch), pain (decreased sensation to pain b/l below ankle) Posture: Present: other (None) Reflex and gait examination: other (Gait not assessed) Reflexes: Biceps: 1+, Triceps: 1+, Brachioradialis: 1+, Patella: 0, Achilles: 0 Mental Status Examination: Present: awake, alert, oriented to person, oriented to place, oriented to time, follows commands appropriately, answers questions ap propriately, no agnosia, no aphasia, no aproxia Cranial nerve examination: Present: PERRL, EOMI, visual cerda intact, sensory to face intact, mastication intact, no facial asymmetry is present, no dysarthria, hearing is intact symmetrically, soft palate elevates bilaterally upon phonation, flexes SCM and trapezius muscles symmetrically with full power, tongue protrudes midline, no atrophy or facial fasiculations present Results - Laboratory Findings CBC and BMP: 04/01/18 03:44 04/01/18 03:44 Abnormal lab findings: Abnormal lab results WBC 17.2 K/mcL (4.3-11.1) H 04/01/18 03:44 RBC 3.24 M/mcL (4.19-5.50) L 04/01/18 03:44 Hgb 10.0 g/dL (12.9-16.9) L 04/01/18 03:44 Hct 31.8 % (37.5-50.1) L 04/01/18 03:44 MCHC 31.4 g/dL (31.6-35.5) L 04/01/18 03:44 RDW 17.1 % (11.5-14.5) H 04/01/18 03:44 Metamyelocytes % 2.0 % (0) H 03/26/18 05:16 Myelocytes % 6.0 % (0) H 04/01/18 03:44 Neutrophils # 12.7 K/mcL (1.6-8.9) H 04/01/18 03:44 Basophils # 0.4 K/mcL (0.0-0.2) H 03/27/18 07:22 Nucleated RBCs/100 WBC 0.1 /100 WBC (0) H 03/26/18 05:16 Reactive Lymphocytes Present (Not Present) A 04/01/18 03:44 Large Platelets Present (Not Present) A 03/29/18 02:39 Hypochromasia Present (Not Present) A 04/01/18 03:44 Anisocytosis 1+ (Not Present) A 03/31/18 02:47 Target Cells 1+ (Not Present) A 03/29/18 02:39 ABG pO2 77 mmHg (85-104) L 03/31/18 11:49 ABG HCO3 28 mEq/L (21-27) H 03/31/18 11:49 ABG Total CO2 29 mEq/L (20-26) H 03/31/18 11:49 Sodium 134 mEq/L (136-145) L 04/01/18 03:44 BUN 49 mg/dL (8-23) H 04/01/18 03:44 Creatinine 5.07 mg/dL (0.70-1.30) H 04/01/18 03:44 Est GFR ( Amer) 14 (> 60) L 04/01/18 03:44 Est GFR (Non-Af Amer) 11 (> 60) L 04/01/18 03:44 POC Glucose 123 mg/dL (70-99) H 03/31/18 08:31 Phosphorus 5.8 mg/dL (2.7-4.5) H 03/25/18 14:59 Troponin I 0.04 ng/mL (< 0.04) H* 03/27/18 03:59 Serum Total Protein 6.0 g/dL (6.4-8.9) L 03/31/18 07:43 Globulin 2.2 g/dL (2.4-3.5) L 03/31/18 07:43 Urine Ketones Trace mg/dL (Negative) H 03/28/18 21:25 Urine Bilirubin Small (Negative) H 03/28/18 21:25 Ur Leukocyte Esterase Small (Negative) H 03/28/18 21:25 Urine Microscopic WBC 15-30 per hpf (0-3) H 03/28/18 21:25 Ur Squamous Epith Cells Many per lpf (None-Few) H 03/28/18 21:25 Urine Yeast Moderate per hpf (None Seen) H 03/28/18 21:25 Ur Culture Indicated? NO. (NO) A 03/28/18 21:25 Consult Discharge Plan - Plan [facility]errals: [facility] [Primary Care Provider] -
--- NOTE | 2018-04-01 09:04 | Internal Med Progress Note ---
Hospitalist Progress Note - Encounter Date of Encounter: 04/01/18 Time of Encounter: 08:55 - Subjective Interval History: Patient seen and examined this morning. Still on and off feeling of blacking. c/o some leg numbness in his whole left leg since about 6 am. Denies numbness anywhere else. Breathing better. Still with some jerking movement on/off. Denies any chest pain, headache. NO fever, chills, sob - Exam Vitals: Temp Pulse Resp BP Pulse Ox 97.5 F L 71 19 122/55 88 04/01/18 07:36 04/01/18 07:36 04/01/18 08:30 04/01/18 07:36 04/01/18 08:30 Exam: General: In no acute distress. Conversant. Obese. Respiratory exam: Good air entry. No rhonchi and wheezes. Cardiovascular exam: RRR, +S1, +S2. no murmur, gallop, rubs. GI/Abdominal exam: Non-tender, Non-distended, bowel sounds present, soft, no p eritoneal signs. Extremities exam: full ROM, 1+ pedal edema, palpable in b/l lower extremities. no calf tenderness. b/l chronic dermatitis changes. Mild erythema on Rt doshi Neurological exam: CN II-XII intact, AO X3, no focal deficits. no pronater drift, facial droop, speech deficit. No asterexis. Occasional myoclonus involving both UE and LE. Has decreased sensation on both lower extremities before. Complains of sensation of numbness in Left leg down from thighs. Denies having previously. Sensation same in both LE . Some decreased strength in left leg. Good capillary refill. Difficult to palpate pulse. But warm feet. Reflex equal bilaterally. Skin exam: ecchymosis on abdomen. - Assessment and Plan (1) Benign hypertension with chronic kidney disease, stage IV Current Visit: No Status: Chronic (2) Hyperlipidemia Current Visit: No Status: Chronic (3) COPD (chronic obstructive pulmonary disease) Current Visit: No Status: Chronic (4) Chronic respiratory failure Current Visit: Yes Status: Chronic (5) Leukocytosis Current Visit: Yes Status: Acute (6) ESRD (end stage renal disease) on dialysis Current Visit: Yes Status: Acute (7) DVT prophylaxis Current Visit: Yes Status: Acute (8) Troponin level elevated Current Visit: Yes Status: Acute (9) Elevated brain natriuretic peptide (BNP) level Current Visit: Yes Status: Acute - Summary of Assessment and Plan Summary of Assessment and Plan: Carotid Stenosis - Carotid doppler with Severe bilateral stenosis - Will obtain CT angiogram. MR not good option given difficulty lying flat, body habitus and staying still. Patient agrees and understands the risk - Will hydrate before and after contrast to help preserve renal function. Will have dialysis tomorrow. Discussed with Nephrology. Leukocytosis - Without fever, tachycardia or hypotension - CXR on admission normal. Repeat CXR with possible bronchitis. - Not on steroids currently. h/o being on steroids. - Blood culture from peripheral and dialysis access NGTD. RIP negative. - CT without bowel obstruction or significant inflammation or stool impaction. Will give lactulose . - Hold abx for now and monitor - ID following Myoclonus - Likely metabolic from COPD and renal failure - f/u ABG - Will consult neurology. Some left leg numbness - No difference in sensation. Mildly decreased strength. Normal reflexes both LE. No other deficits. - CT head ordered - Improving after 30-40 mins. - Does not appear to be stroke. - Will f/u with neurology Elevated BNP - Likely from CHF and renal failure - ECHO with mild diastolic dysfunction, normal EF, Normal wall motion. - Negative -4.5 L with diuresis and UF. c/w lasix and dialysis Troponin level elevated - Cardiology has seen patient. - ECHO with EF of 60%, mild DD, Normal wall motion. - Likely demand ischemia. - Negative Nuclear Stress test from October. Will reconsult cardiology for risk for carotid surgery given recent heart failure for surgery during this admission. Chronic respiratory failure - c/w 4-6 LPM supplemental oxygen. - c/w BiPAP at night and as needed. - Mild rhonchi/wheezing on exam. Saturating well on supplemental oxygen. Start duonebs instead of albuterol End stage renal disease - HD on MWF - Nephrology following COPD - c/w prn nebulizer, symbicort and oxygen. - Time Spent with Patient Total time spent is greater than 50% in coordination of care (as documented) at patient's floor/unit and/or counseling patient: Internal Medicine: Result - Labs CBC & Chem 7: 04/01/18 03:44 04/01/18 03:44 Labs: Short CBC 04/01/18 Range/Units 03:44 WBC 17.2 H (4.3-11.1) K/mcL Hgb 10.0 L (12.9-16.9) g/dL Hct 31.8 L (37.5-50.1) % Plt Count 179 (140-400) K/mcL Neutrophils # 12.7 H (1.6-8.9) K/mcL BMP 03/31/18 04/01/18 07:43 03:44 Sodium 133 L 134 L Potassium 4.7 4.5 Chloride 97 L 101 Carbon Dioxide 26 23 BUN 41 H 49 H Creatinine 5.07 H 5.07 H Glucose 94 82 Calcium 9.5 9.3 Liver Function 03/31/18 Range/Units 07:43 Total Bilirubin 0.7 (0.3-1.0) mg/dL AST 18 (13-39) Units/L ALT 14 (7-52) Units/L Alkaline Phosphatase 53 (34-104) Units/L Albumin 3.8 (3.5-5.7) g/dL - ABG Interpretation ABG results: ABG ABG pH 7.41 pH Units (7.32-7.45) 03/31/18 11:49 ABG pCO2 44 mmHg (35-45) 03/31/18 11:49 ABG pO2 77 mmHg (85-104) L 03/31/18 11:49 ABG O2 Saturation 95 % (95-98) 03/31/18 11:49 - Impressions Impressions Neck CTA 03/31/18 11:33 IMPRESSION: Severe stenosis at the origins of the bilateral internal carotid arteries, 90% focal stenosis on the right and 80% focal stenosis on the left. Mild ground-glass attenuation at the left lung apex, likely related to infection/inflammation versus fibrotic changes. D/ / Eliseo Rosenbaum MD / Eliseo Rosenbaum MD Interpreting Provider: Eliseo Rosenbaum MD Consult Discharge Plan - Plan [facility]errals: [facility] [Primary Care Provider] - (2) Hyperlipidemia Qualifiers: Hyperlipidemia type: mixed hyperlipidemia Qualified Code(s): E78.2 - Mixed hyperlipidemia (3) COPD (chronic obstructive pulmonary disease) Qualifiers: COPD type: emphysema Emphysema type: panlobular Qualified Code(s): J43.1 - Panlobular emphysema (4) Chronic respiratory failure Qualifiers: Respiratory failure complication: hypoxia Qualified Code(s): J96.11 - Chronic respiratory failure with hypoxia (5) Leukocytosis Qualifiers: Leukocytosis type: unspecified Qualified Code(s): D72.829 - Elevated white bl ood cell count, unspecified
[2018-04-01] MEDS: Miconazole 2% ointment 114 GM TUBE TP SCH (09:53)
[2018-04-01] MEDS: FluocinoNIDE 0.05% CRM 15 GM TUBE TP SCH ×3 (09:54→19:57)
--- NOTE | 2018-04-01 12:04 | Cardiology Progress Note ---
Date of Encounter: 04/01/18 Time of Encounter: 12:11 Assessment and Plan (1) Pre-operative cardiovascular examination Current Visit: Yes Status: Acute Pt recommended to undergo carotid endartectomy. He has limited functional capacity secondary to deconditioning. He denies chest pain. No prior history of CAD. Stress test recently completed at [facility] 10/2016- perfusion imaging was negative for ischemia. EF preserved. TTE this admit EF 60%, mild diastolic dysfunction. Mild tricuspid regurgitation. No PAH. With his limited functional capacity and cardiac risk factors he is moderate risk from cardiovascular standpoint. No indication for further cardiac testing. Cardiology will sign off. Call with questions. POC and assessment reviewed with Dr. Tom. (2) CHF (congestive heart failure) Current Visit: Yes Status: Suspected Per cardiology: Known diastolic CHF. EF 60% on TTE this admit. NtpBNP at [facility]. Now on dialysis, fluid management per nephrology. Symptoms improved per Pt. Continue low sodium diet. Strict i/os, fluid restriction, daily weights. Qualifiers: Heart failure type: diastolic Heart failure chronicity: acute on chronic Qualified Code(s): I50.33 - Acute on chronic diastolic (congestive) heart failure Discussion w patient/family: The assessment and plan as outlined above was discussed with the patient and/or family members who expressed understanding and agreement. All questions were answered. Thank you for involving us in the care of your patient. Please call with any questions. Subjective Principal diagnosis: severe b/l carotid stenosis Objective Vital Signs, Last 4 Hours Temp Resp BP Pulse Ox 04/01/18 10:15 97.6 F 17 126/57 04/01/18 09:01 67/47 04/01/18 08:30 19 88 04/01/18 08:21 90 General: Conversant, No Apparent Distress HEENT: Atraumatic, Normocephaly, Mucus Membranes Moist Neck: No JVD, Normal carotid pulses Cardiac: Reg Rate and Rhythm, Normal S1 and S2, No Murmur Lungs: Normal Breath Sounds, No Wheeze, Rales, Rhonchi Neuro: Alert and responsive, No focal deficits noted Abdomen: Soft, Non-Tender Skin: Other (Redness and scaling BLE. ) Musculoskeletal: No Chest Wall Tenderness Extremities: No Clubbing, No Cyanosis, Other (2+ pitting edema BLE with redness and scaling BLE. ) Results 04/01/18 03:44 04/01/18 03:44 Lab Results 04/01/18 04/01/18 03:44 03:44 WBC 17.2 H Hgb 10.0 L Hct 31.8 L Plt Count 179 Sodium 134 L Potassium 4.5 Chloride 101 Carbon Dioxide 23 BUN 49 H Creatinine 5.07 H Glucose 82 Calcium 9.3 - Imaging and Cardiology Stress Test: report reviewed Echo: report reviewed - EKG Interpretation EKG results cardiology: personally reviewed Consult Discharge Plan - Plan [facility]errals: [facility] [Primary Care Provider] -
[2018-04-01] MEDS ORDERED: *HR* Heparin 10,000 UNIT/10 ML VIAL IV PRN (13:07)
--- NOTE | 2018-04-01 13:54 | Nephrology Progress Note ---
Date of Encounter: 04/01/18 Time of Encounter: 13:52 - Assessment and Plan (1) ESRD (end stage renal disease) on dialysis Current Visit: Yes Status: Acute Current regimen is MWF at [facility]. HD in progress for today. Avoid nephrotoxins and renal dose all medications. Strict I/O. (2) Acute and chronic respiratory failure with hypoxia Current Visit: Yes Status: Acute Per primary, titrate oxygen accordingly. (3) Carotid artery disease Current Visit: Yes Status: Acute Patient reports history of 90% carotid artery blockage Per Cardio. Qualifiers: Laterality: unspecified laterality Qualified Code(s): I77.9 - Disorder of arteries and arterioles, unspecified (4) Carotid stenosis, bilateral Current Visit: Yes Status: Acute Per cardio. (5) Anemia Current Visit: Yes Status: Acute Goal Hgb is 10-11. Is 10 today, stable. Qualifiers: Qualified Code(s): D64.9 - Anemia, unspecified Subjective Principal diagnosis: severe b/l carotid stenosis Interval history: Pt seen and examined, during HD, tolerating well. Denies any CP or SOB. Denies nausea/vomiting/diarrhea. Objective - Vital Signs Vital signs: Vital Signs Temp Pulse Resp BP Pulse Ox 04/01/18 11:00 141/50 04/01/18 10:45 140/58 04/01/18 10:30 138/61 04/01/18 10:15 97.6 F 17 126/57 04/01/18 09:01 67/47 04/01/18 08:30 19 88 04/01/18 08:21 90 04/01/18 07:36 97.5 F L 71 18 122/55 100 04/01/18 04:15 17 98 04/01/18 03:31 97.7 F 67 19 151/73 99 03/31/18 22:20 20 96 03/31/18 20:22 95 03/31/18 19:37 97.8 F 74 18 171/80 95 03/31/18 15:30 98.1 F 88 20 97/47 88 Intake and Output 03/31/18 04/01/18 04/01/18 23:59 07:59 15:59 Intake Total 1000 / 1000 1248 / 1248 Output Total 400 / 400 Balance -400 / -400 1000 / 1000 1248 / 1248 Intake: IV Fluids 1000 / 1000 408 / 408 0.9 % Sodium Chloride 1,000 ML 1000 / 1000 408 / 408 @ 75 mls/hr IVC .[id number] [facility] Rx #:[id number] Oral 240 / 240 Intake, Rinseback and Flushes 600 / 600 Output: Urine 400 / 400 Other: Meal Breakfast Percent of Meal Consumed 100% Weight 137.1 kg Hemodialysis Net Fluid Removed 578 (mL) Patient Weight 04/01/18 23:59 Weight 137.1 kg - General Appearance General appearance: Present: well-developed, well-nourished, obese EENT: Present: ATNC, hearing intact, vision intact Neck: Present: supple Respiratory: Present: clear Cardiology: Present: no edema, normal S1, normal S2 Dialysis Vascular Access: Venous Catheter (Tunneled Line, DRSG C/D/I) Gastrointestinal: Present: normoactive bowel sounds, no tenderness, no guarding Integumentary: Present: no rash, warm and dry Neurologic: Present: alert and oriented x3 Psychiatric: Present: mood/affect appropriate, cooperative - Lab 04/01/18 03:44 04/01/18 03:44 Most recent lab results ABG pH 7.41 pH Units (7.32-7.45) 03/31/18 11:49 ABG pCO2 44 mmHg (35-45) 03/31/18 11:49 ABG pO2 77 mmHg (85-104) L 03/31/18 11:49 ABG HCO3 28 mEq/L (21-27) H 03/31/18 11:49 ABG O2 Saturation 95 % (95-98) 03/31/18 11:49 Calcium 9.3 mg/dL (8.6-10.3) 04/01/18 03:44 Phosphorus 5.8 mg/dL (2.7-4.5) H 03/25/18 14:59 Magnesium 2.2 mg/dL (1.6-2.6) 03/31/18 07:43 Consult Discharge Plan - Plan [facility]: [facility] [Primary Care Provider] -
--- NOTE | 2018-04-01 15:12 | Infectious Disease Progress No ---
Date of Encounter: 04/01/18 Time of Encounter: 09:50 - Assessment and Plan (1) Neutrophilic leukocytosis Current Visit: Yes Status: Acute Etiology not clear. There is no mitzi obvious infectious source noted Patient with nonspecific complaints which appears to be like a viral exanthem. Differential diagnosis include (viral exanthem, ileus, intra-abdominal process or steroid use) Bacteremia is possible I guess but there is no obvious dialysis catheter infection noted on physical exam. Leukocytosis continues to improve with most recent value of 17.2, down from 20.2 No other sirs criteria Respiratory infection panel negative Blood culture 4 in 03/28/18 negative for growth Hepatitis panel negative KUB shows gas dilation possible ileus. CT of the abnormalities did not show any evidence of obstruction - Neck CTA does show mild ground-glass attenuation at the left lung apex, likely related to infection/inflammation versus fibrotic changes. Recommendations: If clinically patient does not improve, consider checking lipase/amylase/LFTs and a CT abdomen and pelvis with oral contrast Continue to hold off antibiotics is he only has one SIRS criteria which is leukocytosis with no obvious source of infection and patient does not appear toxic At this time, do not suspect infectious etiology. Will continue to not give antibiotics. ID will sign off at this time. Thank you for allowing up to participate in this patient's care. Please reconsult if needed. (2) CARMEN (obstructive sleep apnea) Current Visit: Yes Status: Chronic (3) ESRD (end stage renal disease) on dialysis Current Visit: Yes Status: Acute - Nephro following - Renally dose medications, avoid nephrotoxins (4) Morbid obesity Current Visit: Yes Status: Chronic (5) CHF (congestive heart failure) Current Visit: Yes Status: Suspected - Does not appear to be in acute exacerbation Qualifiers: Heart failure type: diastolic Heart failure chronicity: acute on chronic Qualified Code(s): I50.33 - Acute on chronic diastolic (congestive) heart failure (6) Carotid artery disease Current Visit: Yes Status: Chronic Qualifiers: Laterality: unspecified laterality Qualified Code(s): I77.9 - Disorder of arteries and arterioles, unspecified (7) Constipation Current Visit: Yes Status: Acute Qualifiers: Constipation type: unspecified constipation type Qualified Code(s): K59.00 - Constipation, unspecified (8) Ileus Current Visit: Yes Status: Acute - Subjective Interval history: Patient was seen and examined this morning. He states that overall he is doing very well with only complaints of chronic knee and back pain. He does admit to coughing but is unable to determine if this is chronic or acute, productive or non productive. Denies any symptoms of fevers, chills, chest pain, shortness of breath. Does admit to some intermittent nausea but was able to tolerate dinner and breakfast without any complaints. Infect Dis PN-Objective Data - Labs CBC & Chem 7: 04/01/18 03:44 04/01/18 03:44 Labs: Laboratory Results - last 24 hr 03/31/18 04/01/18 04/01/18 08:31 03:44 03:44 WBC 17.2 H RBC 3.24 L Hgb 10.0 L Hct 31.8 L MCV 98.1 MCH 30.9 MCHC 31.4 L RDW 17.1 H Plt Count 179 MPV 11.7 Seg Neutrophils % 72.0 Band Neutrophils % 2.0 Lymphocytes % 16.0 Monocytes % 2.0 Eosinophils % 2.0 Myelocytes % 6.0 H Neutrophils # 12.7 H Lymphocytes # 2.8 Monocytes # 0.3 Eosinophils # 0.3 Reactive Lymphocytes Present A Platelet Estimate Normal Hypochromasia Present A Sodium 134 L Potassium 4.5 Chloride 101 Carbon Dioxide 23 BUN 49 H Creatinine 5.07 H Est GFR ( Amer) 14 L Est GFR (Non-Af Amer) 11 L BUN/Creatinine Ratio 10 Glucose 82 POC Glucose 123 H Calculated Osmolality 290 Calcium 9.3 Cultures: Cultures 03/28/18 16:15 Blood Culture - Preliminary Port System Culture is incubating and being continuously monitored for growth. Final report to follow. 03/28/18 16:00 Blood Culture - Preliminary Port System Culture is incubating and being continuously monitored for growth. Final report to follow. 03/28/18 13:50 Blood Culture - Preliminary Peripheral Venipuncture Culture is incubating and being continuously monitored for growth. Final report to follow. 03/28/18 13:56 Blood Culture - Preliminary Peripheral Venipuncture Culture is incubating and being continuously monitored for growth. Final report to follow. Serology 03/31/18 03/30/18 03/29/18 Range/Units 07:43 15:24 17:00 Urine Color (Yellow) Urine Clarity (Clear) Urine pH (5.0-8.0) pH Units Ur Specific [place] (1.010-1.025) Urine Protein (Neg-Trace) mg/dL Urine Glucose (UA) (Normal) mg/dL Urine Ketones (Negative) mg/dL Urine Blood (Negative) Urine Nitrite (Negative) Urine Bilirubin (Negative) Urine Urobilinogen (Normal) mg/dL Ur Leukocyte Esterase (Negative) Urine Microscopic RBC (0-3) per hpf Urine Microscopic WBC (0-3) per hpf Ur Squamous Epith Cells (None-Few) per lpf Urine Bacteria (None-Few) per hpf Hyaline Casts (None-Few) per lpf Urine Yeast (None Seen) per hpf Ur Culture Indicated? (NO) Nasal Screen MRSA (PCR) Negative (Negative) Chlamy pneumoniae PCR Not Detected (Not Detect) Adenovirus (PCR) Not Detected (Not Detect) B. pertussis DNA (PCR) Not Detected (Not Detect) B.parapertussis DNA PCR Not Detected (Not Detect) Coronavirus OC43 (PCR) Not Detected (Not Detect) Coronavirus HKU1 (PCR) Not Detected (Not Detect) Coronavirus 229E (PCR) Not Detected (Not Detect) Coronavirus NL63 (PCR) Not Detected (Not Detect) Hepatitis A IgM Ab Nonreactive (Nonreactive) Hep Bs Antigen Nonreactive (Nonreactive) Hep Bs Antibody mIU/mL Hep B Core IgM Ab Nonreactive (Nonreactive) Hepatitis C Ab Screen Nonreactive (Nonreactive) Human Metapneumovir PCR Not Detected (Not Detect) Influenza A (H1) PCR Not Detected (Not Detect) Influ A (H1N1/09) PCR Not Detected (Not Detect) Influenza A (H3) PCR Not Detected (Not Detect) Influenza A Untype (PCR) Not Detected (Not Detect) Influenza Type B (PCR) Not Detected (Not Detect) M.pneumoniae DNA (PCR) Not Detected (Not Detect) Parainfluenza 1 (PCR) Not Detected (Not Detect) Parainfluenza 2 (PCR) Not Detected (Not Detect) Parainfluenza 3 (PCR) Not Detected (Not Detect) Parainfluenza 4 (PCR) Not Detected (Not Detect) RSV (PCR) Not Detected (Not Detect) Entero/Rhino (PCR) Not Detected (Not Detect) 03/29/18 03/28/18 03/27/18 Range/Units 15:30 21:25 09:30 Urine Color Yellow (Yellow) Urine Clarity Clear (Clear) Urine pH 5.5 (5.0-8.0) pH Units Ur Specific [place] 1.010 (1.010-1.025) Urine Protein Trace (Neg-Trace) mg/dL Urine Glucose (UA) Normal (Normal) mg/dL Urine Ketones Trace H (Negative) mg/dL Urine Blood Negative (Negative) Urine Nitrite Negative (Negative) Urine Bilirubin Small H (Negative) Urine Urobilinogen Normal (Normal) mg/dL Ur Leukocyte Esterase Small H (Negative) Urine Microscopic RBC 0-3 (0-3) per hpf Urine Microscopic WBC 15-30 H (0-3) per hpf Ur Squamous Epith Cells Many H (None-Few) per lpf Urine Bacteria None Seen (None-Few) per hpf Hyaline Casts Few (None-Few) per lpf Urine Yeast Moderate H (None Seen) per hpf Ur Culture Indicated? NO. A (NO) Nasal Screen MRSA (PCR) Negative (Negative) Chlamy pneumoniae PCR (Not Detect) Adenovirus (PCR) (Not Detect) B. pertussis DNA (PCR) (Not Detect) B.parapertussis DNA PCR (Not Detect) Coronavirus OC43 (PCR) (Not Detect) Coronavirus HKU1 (PCR) (Not Detect) Coronavirus 229E (PCR) (Not Detect) Coronavirus NL63 (PCR) (Not Detect) Hepatitis A IgM Ab (Nonreactive) Hep Bs Antigen Nonreactive (Nonreactive) Hep Bs Antibody 0.09 mIU/mL Hep B Core IgM Ab (Nonreactive) Hepatitis C Ab Screen (Nonreactive) Human Metapneumovir PCR (Not Detect) Influenza A (H1) PCR (Not Detect) Influ A (H1N1/09) PCR (Not Detect) Influenza A (H3) PCR (Not Detect) Influenza A Untype (PCR) (Not Detect) Influenza Type B (PCR) (Not Detect) M.pneumoniae DNA (PCR) (Not Detect) Parainfluenza 1 (PCR) (Not Detect) Parainfluenza 2 (PCR) (Not Detect) Parainfluenza 3 (PCR) (Not Detect) Parainfluenza 4 (PCR) (Not Detect) RSV (PCR) (Not Detect) Entero/Rhino (PCR) (Not Detect) - Impressions Impressions Neck CTA 03/31/18 11:33 IMPRESSION: Severe stenosis at the origins of the bilateral internal carotid arteries, 90% focal stenosis on the right and 80% focal stenosis on the left. Mild ground-glass attenuation at the left lung apex, likely related to infection/inflammation versus fibrotic changes. D/ / Eliseo Rosenbaum MD / Eliseo Rosenbaum MD Interpreting Provider: Eliseo Rosenbaum MD Head CT 04/01/18 08:49 IMPRESSION: No acute intracranial abnormality. Slight cerebral atrophy appropriate for age. Slight chronic ischemic changes also age-appropriate. No change from the prior study. RECOMMENDATIONS: MRI suggested for evaluation of the patient's symptoms. D/ / Jem Perez MD / Jem Perez MD Interpreting Provider: Jem Perez MD Exam - Constitutional Vitals: Temp Pulse Resp BP Pulse Ox 97.6 F 71 17 141/50 88 04/01/18 10:15 04/01/18 07:36 04/01/18 10:15 04/01/18 11:00 04/01/18 08:30 Exam: Gen.: Vitals noted. No acute distress. AAOx3, resting comfortably during dialysis HEENT: PERRL/EOMI, oropharynx clear, Normocephalic, atraumatic, MMM Cardiac: RRR, no murmur, +S1/S2 Pulmonary: Mild wheezes more prominent on left. equal chest expansion Abdomen: soft, nontender, BS noted, no guarding, no rebound. Moderately distended Extremities: no BLE edema, nontender calf, no cyanosis or clubbing. Bilateral lower extremity erythema consistent with stasis dermatitis. Neuro: A&Ox3, moves all extremities, no focal deficits Psych: Appropriate mood and behavior Consult Discharge Plan - Plan [facility]errals: [facility] [Primary Care Provider] - ([facility]/ they come to his home and see the patient, they will have to call when he is released) Asher Barcenas MD [Partnered Physician] - 04/24/18 9:45 am - Attending Attestation I examined this patient and my medical decision-making was reviewed with the Resident Physician. I agree with the documented findings, disposition and treatment plan as described except to the extent set forth below.
--- NOTE | 2018-04-01 15:27 | Vascular/Endovas Progress Note ---
Date of Encounter: 04/01/18 Time of Encounter: 14:20 - Assessment and plan (1) CKD (chronic kidney disease), stage V Current Visit: Yes Status: Chronic Patient is presently being dialyzed on a Sunday schedule through the dialysis facility in [place] as an outpatient. The patient was dialyzed today. The patient has been dialyzed approximately 1 month via a right internal jugular vein permanent hemodialysis catheter. (2) Morbid obesity Current Visit: Yes Status: Chronic Patient has dramatic morbid obesity (3) Chronic pain syndrome Current Visit: Yes Status: Chronic Patient has chronic pain syndrome involving his spine. He is status post nerve stimulator. this has not been recharged for number of years. The patient is controlling his pain with Percocet [facility]. (4) Carotid stenosis, bilateral Current Visit: Yes Status: Acute Patient has high-grade bilateral carotid artery stenosis greater on the right side than on the left. I reviewed with the patient the natural history of carotid artery disease. We discussed potential treatment options. We also discussed his risk for stroke with or without intervention. Because of the severity of his strokes and ongoing symptoms I recommended that we proceed at this time with a right carotid endarterectomy. I discussed with him the potential risks and benefits as well as complications and alternatives. We discussed the potential need for ventilator assisted respiration following surgery and that he may require mechanical ventilation postoperatively. All questions were answered. The patient wishes to proceed with surgery. We will make the necessary arrangements for a right carotid endarterectomy for tomorrow. (5) COPD (chronic obstructive pulmonary disease) Current Visit: Yes Status: Chronic The patient has severe COPD. The patient does use a BiPAP mask. The patient is a arellano that general endotracheal anesthesia for his carotid endarterectomy may temporarily exacerbate his COPD. He is also made aware that he may require short-term mechanical ventilation following his carotid endarterectomy. Qualifiers: COPD type: emphysema Emphysema type: panlobular Qualified Code(s): J43.1 - Panlobular emphysema - Subjective Interval history: Patient is seen in the hemodialysis unit. He has just finished his hemodialysis session for the day. He has no new complaints. He states overall he is feeling about the same as he has since his admission. He had a sensation of near syncope earlier today while on dialysis. The patient has been receiving dialysis for approximately one month via a permanent hemodialysis catheter. I have personally reviewed the carotid artery duplex scan from Sunday and the CT angiogram from yesterday. These reveal significant bilateral carotid artery disease. The patient has an approximate 90% right internal carotid artery stenosis. The patient has at least an 80% left internal carotid artery stenosis. The vertebral arteries are patent with antegrade flow bilaterally. I reviewed the findings of the studies with the patient. I reviewed with him the natural history of carotid artery disease and the high risk of stroke. - Physical Examination General: Present: Conversant, No Apparent Distress, Other HEENT: Present: Atraumatic, Trachea midline (Morbidly obese), Pupils equal Neck: Absent: JVD, Left Carotid bruit, Right Carotid bruit, Midline deformity, Tracheal deviation Cardiac: Present: Reg Rate and Rhythm, Normal S1 and S2 Lungs: Present: Decreased breath sounds Neuro: Present: Alert and responsive, No focal deficits noted, Cranial nerves grossly intact, Motor nerves grossly intact, Sensory nerves grossly intact Skin: Present: No rashes noted on visualized skin Results 04/01/18 03:44 04/01/18 03:44 Lab Results, Last 24 hours 04/01/18 04/01/18 03:44 03:44 WBC 17.2 H Hgb 10.0 L Hct 31.8 L Plt Count 179 Sodium 134 L Potassium 4.5 Chloride 101 Carbon Dioxide 23 BUN 49 H Creatinine 5.07 H Glucose 82 Calcium 9.3 - Imaging / Other Tests Non Invasive Vascular Testing: report reviewed, image reviewed CT/CTA: report reviewed, image reviewed Consult Discharge Plan - Plan [facility]errals: [facility] [Primary Care Provider] -
[2018-04-01] MEDS: *HR* OxyCODONE/APAP 5/325 TABLET PO PRN (15:39)
[2018-04-01] MEDS: Sennosides 8.6 MG TABLET PO SCH (19:54)
[2018-04-02] MEDS: *HR* OxyCODONE/APAP 5/325 TABLET PO PRN ×3 (01:00→15:42)
--- NOTE | 2018-04-02 03:11 | Anesthesia Evaluation PreOp ---
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: Other (severe bilateral carotid stenosis, per vascular note - symptoms consistent with global cerebral hypoperfusion) Other Medical History: Renal (ESRD on HD MWF in [place]) Alcohol Use: rarely Drug use: none Medications and Allergies Allopurinol [Zyloprim 100 MG] 200 mg PO DAILY 09/28/15 [History] Baclofen [Lioresal] 15 mg PO TID 09/28/15 [History] Budesonide/Formoterol 160/4.5 [Symbicort 160/4.5] 2 puff IH BID 09/28/15 [History] Meclizine HCl [Verticalm] 12.5 mg PO DAILY 09/28/15 [History] OxyCODONE/APAP 5/325 [Percocet 5/325 MG] 1 tab PO Q6HR PRN 09/28/15 [History] Pantoprazole Sodium [Protonix] 40 mg PO DAILY 09/28/15 [History] Albuterol Sulfate [Proair Hfa] 2 puff IH Q4H PRN 12/14/15 [History] Ondansetron [Zofran] 4 mg PO BID PRN 12/14/15 [History] Calcitriol 0.5 mcg PO DAILY 02/26/18 [History] Cyanocobalamin (Vitamin B-12) [Vitamin B12] 1,000 mcg PO DAILY 02/26/18 [History] Sennosides [Senna] 2 tab PO HS 02/26/18 [History] Tiotropium [place] [Spiriva Respimat] 2 puff IH DAILY 02/26/18 [History] Albuterol Neb [Proventil Neb] 1 puff IH Q4HR 03/14/18 [History] Atorvastatin [Lipitor] 40 mg PO HS 03/14/18 [History] Cholecalciferol (D-3) [Vitamin D] 3,000 unit PO DAILY 03/14/18 [History] Docusate Sodium [Dok] 100 mg PO DAILY 03/14/18 [History] Ferrous Sulfate [Iron] 325 mg PO DAILY 03/14/18 [History] Furosemide [Lasix] 20 mg PO DAILY PRN 03/14/18 [History] Magnesium Oxide [Magnesium] 400 mg PO DAILY 03/14/18 [History] FluocinoNIDE 0.05% CRM [Lidex] 1 appl TP TID 03/25/18 [History] Metoprolol [Lopressor] 12.5 mg PO BID 03/25/18 [History] Miconazole 2% ointment [Aloe Herrick Antifungal Ointment] 1 applic TP DAILY 03/25/18 [History] Potassium Chloride [Klor-Con 10] 10 meq PO DAILY 03/25/18 [History] Pregabalin [Lyrica] 50 mg PO BID 03/25/18 [History] Allergy/AdvReac Type Severity Reaction Status Date / Time NSAIDS (Non-Steroidal Allergy See Verified 09/28/15 20:55 Anti-Inflamma Comments - Meds/Allergy Pre-op Review Medications Reviewed: Yes Allergies Reviewed: Yes Beta Blockers on Current Med List: Yes (last given 03-31-18) Anesthesia Results - Labs 04/01/18 03:44 04/01/18 03:44 - Imaging EKG: report reviewed, image reviewed (SR) Additional studies: 03-26-18 TTE: Impressions: Technically challenging due to body habitus. Definity echo contrast was used. LVEF 60%. Mild left ventricular diastolic dysfunction. RV is suboptimally visualized. Function is normal by tissue Doppler. Mild tricuspid regurgitation. No pulmonary hypertension based on TR signal obtained. 04-01-18 Cardiology clearance for R CEA: Pt recommended to undergo carotid endartectomy. He has limited functional capacity secondary to deconditioning. He denies chest pain. No prior history of CAD. Stress test recently completed at [facility] 10/2016- perfusion imaging was negative for ischemia. EF preserved. TTE this admit EF 60%, mild diastolic dysfunction. Mild tricuspid regurgitation. No PAH. With his limited functional capacity and cardiac risk factors he is moderate risk from cardiovascular standpoint. No indication for further cardiac testing. Cardiology will sign off. Call with questions. 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[employer] History: Other Anesthesia History: No Prior Anesthetic Complications, Past Anesthesia (josh LE stents) - Meds/Allergy Pre-op Review If Beta Blockers taken, Date/Time (Last Dose taken): 04/02/18 at 806am Anesthesia Results - Labs 04/01/18 03:44 04/01/18 03:44 Anesthesia Exam - HEENT Pupil (Motor): Pupils equal, EOMI Mallampati: III Teeth: Edentulous Oral Opening: Greater than 3 - 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
[2018-04-02] MEDS: Ipratropium/Albuterol Neb 3 ML IH SCH ×4 (04:04→22:19)
[2018-04-02] MEDS: *HR* Heparin 5,000 UNIT/ML VIAL SQ SCH (04:23)
[2018-04-02] MEDS: Baclofen 10 MG TABLET PO SCH ×2 (08:03→15:24)
[2018-04-02] MEDS: Lactulose Oral Soln 20 GM/30 ML UDC PO SCH (08:03)
[2018-04-02] MEDS: Cholecalciferol (D-3) 1,000 UNIT TABLET PO SCH (08:06)
[2018-04-02] MEDS: Magnesium Oxide 400 MG TABLET PO SCH (08:06)
[2018-04-02] MEDS: Furosemide 40 MG TABLET PO SCH (08:06)
[2018-04-02] MEDS: Cyanocobalamin (B-12) 1,000 MCG TABLET PO SCH (08:06)
[2018-04-02] MEDS: Miconazole 2% ointment 114 GM TUBE TP SCH (08:07)
[2018-04-02] MEDS: FluocinoNIDE 0.05% CRM 15 GM TUBE TP SCH ×2 (08:07→15:32)
[2018-04-02] MEDS: Pregabalin 50 MG CAPSULE PO SCH (08:08)
--- NOTE | 2018-04-02 10:34 | Nephrology Progress Note ---
Date of Encounter: 04/02/18 Time of Encounter: 10:32 - Assessment and Plan (1) ESRD (end stage renal disease) on dialysis Current Visit: Yes Status: Acute Current regimen is MWF at [facility]. Will plan on HD tomorrow. Avoid nephrotoxins and renal dose all medications. Strict I/O. (2) Acute and chronic respiratory failure with hypoxia Current Visit: Yes Status: Acute Per primary, titrate oxygen accordingly. (3) Carotid artery disease Current Visit: Yes Status: Chronic Patient reports history of 90% carotid artery blockage Per Cardio. Qualifiers: Laterality: unspecified laterality Qualified Code(s): I77.9 - Disorder of arteries and arterioles, unspecified (4) Carotid stenosis, bilateral Current Visit: Yes Status: Acute Per vascular. OR scheduled later today for Right Carotid Endarterectomy with Dr. Barcenas. (5) Anemia Current Visit: Yes Status: Acute Goal Hgb is 10-11. No new labs for today. Qualifiers: Qualified Code(s): D64.9 - Anemia, unspecified Subjective Principal diagnosis: severe b/l carotid stenosis Interval history: Pt seen and examined, doing well. Admits to feeling lightheaded. Is awaiting surgery. Objective - Vital Signs Vital signs: Vital Signs Temp Pulse Resp BP Pulse Ox 04/02/18 07:42 93 04/02/18 06:48 98.8 F 80 20 109/57 90 04/02/18 04:04 18 90 04/02/18 03:52 97.9 F 72 18 125/58 90 04/01/18 23:15 98.2 F 77 17 127/60 97 04/01/18 21:45 20 95 04/01/18 19:29 99.1 F 79 17 110/55 92 04/01/18 18:05 18 92 04/01/18 16:59 90 04/01/18 16:23 98.1 F 91 18 100/58 92 04/01/18 14:00 97.6 F 15 152/76 04/01/18 13:45 151/68 04/01/18 13:30 142/75 04/01/18 13:15 139/62 04/01/18 13:00 139/65 04/01/18 12:45 139/67 04/01/18 12:30 141/64 04/01/18 12:15 153/70 04/01/18 12:00 143/66 04/01/18 11:45 138/64 04/01/18 11:30 135/58 04/01/18 11:15 129/63 04/01/18 11:00 141/50 04/01/18 10:45 140/58 Intake and Output 04/01/18 04/02/18 04/02/18 23:59 07:59 15:59 Intake Total 700 / 700 Balance 700 / 700 Intake: IV Fluids 100 / 100 Ancef 2,000 MG In 0.9 % Sodium 100 / 100 Chloride 100 ML @ 200 mls/hr IVPB ONCE ONE Rx#:[id number] Oral 600 / 600 Other: # Voids 1 Weight 134 kg Patient Weight 04/02/18 23:59 Weight 134 kg - General Appearance General appearance: Present: well-developed, well-nourished, obese EENT: Present: ATNC, hearing intact, vision intact Neck: Present: supple Respiratory: Present: clear Cardiology: Present: edema (Trace bilat lower extremity edema.), normal S1, normal S2 Dialysis Vascular Access: Venous Catheter (Tunneled Line, DRSG C/D/I) Gastrointestinal: Present: normoactive bowel sounds, no tenderness, no guarding Integumentary: Present: no rash, warm and dry Neurologic: Present: alert and oriented x3 Musculoskeletal: Present: no deformities Psychiatric: Present: mood/affect appropriate, cooperative - Lab 04/01/18 03:44 04/01/18 03:44 Most recent lab results ABG pH 7.41 pH Units (7.32-7.45) 03/31/18 11:49 ABG pCO2 44 mmHg (35-45) 03/31/18 11:49 ABG pO2 77 mmHg (85-104) L 03/31/18 11:49 ABG HCO3 28 mEq/L (21-27) H 03/31/18 11:49 ABG O2 Saturation 95 % (95-98) 03/31/18 11:49 Calcium 9.3 mg/dL (8.6-10.3) 04/01/18 03:44 Phosphorus 5.8 mg/dL (2.7-4.5) H 03/25/18 14:59 Magnesium 2.2 mg/dL (1.6-2.6) 03/31/18 07:43 Consult Discharge Plan - Plan [facility]errals: [facility] [Primary Care Provider] - (This patient has [facility]/ they come to his home and see the patient, they will have to call when he is released) Asher Barcenas MD [Partnered Physician] - 04/24/18 9:45 am
[2018-04-02] MEDS: Budesonide/Formoterol 160/4.5 1 PUFF INH IH SCH ×2 (11:01→22:19)
[2018-04-02] MEDS ORDERED: Lidocaine -MPF 2% 2 ML VIAL ONE ×3 (14:34→17:21)
[2018-04-02] MEDS ORDERED: *HR* Succinylcholine 200 MG/10 ML VIAL IVP ONE ×2 (14:34→16:10)
[2018-04-02] MEDS ORDERED: *HR* Propofol 200 MG/20 ML VIAL IVP ONE ×2 (14:35→16:10)
[2018-04-02] MEDS ORDERED: Heparin 1,000 UNITS/500 mL 500 ML ONE (14:57)
[2018-04-02] MEDS ORDERED: *HR* FentaNYL (PF) 100 MCG/2 ML VIAL ONE (16:10)
[2018-04-02] MEDS ORDERED: Ondansetron 4 MG/2 ML VIAL ONE (16:10)
[2018-04-02] MEDS ORDERED: *HR* Midazolam HCl 2 MG/2 ML VIAL ONE (16:10)
[2018-04-02] MEDS ORDERED: Lidocaine -MPF 4% 5 ML AMPUL ONE (16:14)
[2018-04-02] MEDS ORDERED: *HR* Norepinephrine 4 MG/4 ML VIAL IVC ONE (16:17)
[2018-04-02] MEDS ORDERED: *HR* Remifentanil 2 MG VIAL IVP ONE ×2 (16:21→19:18)
[2018-04-02] MEDS ORDERED: *HR* PHENYLEPHRINE 1,000 MCG/10 ML SYRINGE IVP ONE (16:23)
[2018-04-02] MEDS ORDERED: *HR* Phenylephrine 10 MG/ML VIAL ONE (16:24)
[2018-04-02] MEDS ORDERED: Nitroglycerin 25 MG/250 ML INFUS..BTL IVC ONE (17:20)
[2018-04-02] MEDS ORDERED: *HR* Heparin 5,000 UNIT/ML VIAL ONE ×2 (18:22→18:42)
[2018-04-02] MEDS ORDERED: Dexamethasone 4 MG/ML VIAL ONE (18:26)
--- NOTE | 2018-04-02 18:37 | Anesthesia Procedures ---
Date of Encounter: 04/02/18 Time of Encounter: 17:15 Procedures: Anesthesia - Arterial Line Consent obtained: verbal consent Time out performed: Yes Local Anesthetic: Other (lidocaine 2%) Amount of Anesthetic used (mls): 3 Size (Gauge): 20 Technique Used: sterile prep Post-Procedure: line taped into place, dry sterile dressing placed Patient tolerated procedure: well, no complications Complications: none Site: Brachial L Vitals: Vital Signs/O2 Sat, Most Current Temp Pulse Resp BP Pulse Ox 98.4 F 70 16 129/62 94 04/02/18 15:16 04/02/18 15:16 04/02/18 15:16 04/02/18 15:16 04/02/18 15:16
[2018-04-02] MEDS ORDERED: *HR* HYDROmorphone (PF) 1 MG/ML SYRINGE IVP PRN ×2 (18:39→21:42)
[2018-04-02] MEDS ORDERED: *HR* Promethazine 25 MG/ML VIAL IVP PRN ×2 (18:39→21:42)
[2018-04-02] MEDS ORDERED: *HR* Labetalol 20 MG/4 ML SYRINGE IVP PRN ×2 (18:39→21:42)
[2018-04-02] MEDS ORDERED: *HR* OxyCODONE Immed Rel 5 MG TABLET PO PRN ×2 (18:39→21:42)
[2018-04-02] MEDS ORDERED: NiCARdipine 2.5 MG/10 ML Syringe IVPB ONE (20:25)
[2018-04-02] MEDS ORDERED: Ipratropium/Albuterol Neb 3 ML ONE (20:36)
--- NOTE | 2018-04-02 20:37 | Operative Note ---
Date of procedure: 04/02/18 Pre-op diagnosis: high bilateral carotid stenosis/hypoperfusion syndrome Post-op diagnosis: same Procedure: right carotid endarterectomy with 8 Fr shunt and bovine pericardial patch angioplasty Complications: 0 Anesthesia: GETA Surgeon: Asher Barcenas Was there an assistant child care teacher present: No Estimated blood loss (cc): 100 Specimen: 0 Condition: stable Disposition: PACU Procedure in Detail: History Dereck Madrid is a 67-year-old white male who was seen for severe bilateral carotid artery disease and cerebral hypoperfusion syndrome. A review of his duplex scan and CT angiogram demonstrated significant bilateral carotid disease worse on the right side than on the left. The patient has severe disease and was recommended that he undergo surgery urgently to try to reduce her risk of stroke. He now comes to the operating room. Procedure After informed consent was obtained the patient was taken to the operating room. General endotracheal anesthesia was established. An arterial line was placed. The right neck was sterilely prepped and draped. A timeout protocol was observed. An oblique incision was made in the right neck paralleling the anterior border of the sternocleidomastoid muscle. Patient has a markedly obese neck requiring a more prolonged and tedious dissection. Eventually the carotid artery was identified. Control was obtained of the carotid artery and its bifurcation. 6000 units of heparin were administered intravenously. An 11 blade knife and Lira scissors were used to open the artery. An 8 Spanish shunt was then inserted atraumatically and the patency of the shunt was confirmed by the use of intraoperative Doppler. Inspection of the carotid bifurcation confirms the preoperative diagnosis of at least a 90% if not greater stenosis being present. It was very calcific plaque that was irregular. No thrombus was identified in the lumen. There appeared to be no intra-mural hemorrhage. Dissection was then begun to begin the endarterectomy at the distal aspect of the common carotid artery. The dissection was carried circumferentially. The arteriotomy needed to be continued proximally due to the amount of calcific plaque present in the common carotid artery. The external carotid and superior thyroid arteries were endarterectomized. The endpoint on the internal carotid artery was smooth and no tacking sutures were necessary. The bed of the vessels then inspected for any residual debris and then a bovine pericardial patch angioplasty was performed. This was sewn into position using 2 6-0 Prolene sutures. Leaving a small space open on the suture line the shunt was clamped and divided and removed. The final few sutures were placed. The internal was allowed to backbleed and reclamped. The external and common were opened and finally the internal was reopened. The patient tolerated this maneuver well. He had no hemodynamic distress. The patient demonstrated excellent pulses and Doppler signals throughout the carotid system. A superficial cervical block using half percent Marcaine was performed. The wound was irrigated with antibiotic containing solution. Hemostasis was achieved. The wound was then closed using absorbable suture. No drains were placed. A dry sterile dressing was applied. The patient awoke well and rapidly from the anesthetic. He was able to be excreted on the table. He was neurologically intact. He was then taken to the recovery room in stable condition.
[2018-04-02] MEDS ORDERED: 0.9 % Sodium Chloride 1,000 ML PRIME SCH (21:42)
[2018-04-02] MEDS ORDERED: Ondansetron 4 MG/2 ML VIAL IVP PRN (21:42)
[2018-04-02] MEDS ORDERED: Naloxone 0.4 MG/ML INJ IVP PRN ×2 (21:42)
[2018-04-02] MEDS ORDERED: 0.9 % Sodium Chloride 250 ML IVC PRN (21:42)
[2018-04-02] MEDS ORDERED: Ipratropium/Albuterol Neb 3 ML IH PRN (21:42)
--- NOTE | 2018-04-02 22:08 | Anesthesia Evaluation Post Op ---
Date of Encounter: 04/02/18 Time of Encounter: 21:37 - Vital Signs Vital Signs: Last Vital Signs Temp 97.9 F 04/02/18 21:39 Pulse 85 04/02/18 21:39 Resp 20 04/02/18 21:39 BP 152/72 04/02/18 21:39 Pulse Ox 93 04/02/18 21:39 - Lungs Lungs: Clear Ascult./Percussion - Airway Airway: Non-obstructed - Cardiovascular Regular Rate - Mental Status Mental Status: Alert & Oriented, Answers Appropriately - Pain Pain Scale: 3 - Nausea Vomiting Nausea Vomiting: Not Present - Hydration Hydration: NPO - Discharge PostOp Status: Transfer Patient to floor
[2018-04-02 22:18] LABS: Hematocrit 31.9 % (37.5-50.1); Hemoglobin 10.3 g/dL (12.9-16.9); Immature Platelets 3.9 % (1.1-6.1); Mean Corpuscular HGB Conc 32.3 g/dL (31.6-35.5); Mean Corpuscular Hemoglobin 31.2 pg (28.0-33.3); Mean Corpuscular Volume 96.7 fL (83.0-100.0); Mean Platelet Volume 10.9 fL (9.4-12.4); Platelet Count 167 K/mcL (140-400); Red Cell Distribution Width 17.2 % (11.5-14.5)
[2018-04-02 22:40] LABS: Eosinophils # 0.4 K/mcL (0.0-0.6); Lymphocytes # 0.8 K/mcL (0.6-4.6); Monocytes # 1.2 K/mcL (0.0-1.3)
--- NOTE | 2018-04-03 00:15 | Internal Med Progress Note ---
Hospitalist Progress Note - Encounter Date of Encounter: 04/02/18 Time of Encounter: 19:00 - Subjective Interval History: SUBJECTIVE: I saw this patient before he is scheduled for today right and are therapy family. He feels good. Denies chest pain. Denies difficulty breathing, coughing and wheezing. He continues hemodialysis. OBJECTIVE: Skin: Free of rash and discoloration. ENMT: Oral/pharyngeal mucosa is normal in appearance. Eyes: Sclera is white. There is no discharge from eyes. Respiratory: Normal breath sounds; no crackles or wheezes. CV: Heart is regular; no gallop or murmur. GI: Abdomen is soft and not tender. There is no palpable mass or visceromegaly. Neuro: There is no focal deficits. ASSESSMENT AND PLAN: COPD exacerbation. Basically, stable at this time. He gets nebulizer treatments with DuoNeb. He has chronic respiratory failure. He uses supplemental oxygen at 3 L/min nasal cannula. End-stage renal disease, on hemodialysis. See notes from nephrology. Peripheral arterial disease. He has a severe bilateral carotid artery stenosis. He will undergo right endarterectomy today. DISPOSITION: The patient is to go to [facility] after the surgery. - Exam Vitals: Temp Pulse Resp BP Pulse Ox 98.0 F 86 16 134/61 98 04/02/18 23:10 04/02/18 23:10 04/02/18 23:10 04/02/18 23:10 04/02/18 23:10 Exam: xx - Assessment and Plan (1) COPD exacerbation Current Visit: Yes Status: Acute (2) ESRD on hemodialysis Current Visit: Yes Status: Chronic (3) Chronic respiratory failure with hypoxia Current Visit: Yes Status: Chronic (4) PAD (peripheral artery disease) Current Visit: Yes Status: Chronic - Time Spent with Patient Total time spent is greater than 50% in coordination of care (as documented) at patient's floor/unit and/or counseling patient: 25 - 35 minutes Plan of Care Discussed with: patient Internal Medicine: Result - Labs CBC & Chem 7: 04/02/18 21:42 04/01/18 03:44 Labs: Short CBC 04/02/18 Range/Units 21:42 WBC 19.5 H (4.3-11.1) K/mcL Hgb 10.3 L (12.9-16.9) g/dL Hct 31.9 L (37.5-50.1) % Plt Count 167 (140-400) K/mcL Neutrophils # 16.0 H (1.6-8.9) K/mcL - ABG Interpretation ABG results: ABG ABG pH 7.41 pH Units (7.32-7.45) 03/31/18 11:49 ABG pCO2 44 mmHg (35-45) 03/31/18 11:49 ABG pO2 77 mmHg (85-104) L 03/31/18 11:49 ABG O2 Saturation 95 % (95-98) 03/31/18 11:49 Consult Discharge Plan - Plan Referrals: [facility] [Primary Care Provider] - (This patient has [employer] [facility]/ they come to his home and see the patient, they will have to call when he is released) Asher Barcenas MD [Partnered Physician] - 04/24/18 9:45 am
[2018-04-03] MEDS: Ipratropium/Albuterol Neb 3 ML IH SCH ×4 (04:04→22:19)
[2018-04-03] MEDS: *HR* Heparin 5,000 UNIT/ML VIAL SQ SCH ×2 (06:33→17:17)
[2018-04-03 07:29] LABS: Hematocrit 31.7 % (37.5-50.1); Mean Corpuscular HGB Conc 31.5 g/dL (31.6-35.5); Mean Corpuscular Hemoglobin 30.9 pg (28.0-33.3); Mean Corpuscular Volume 97.8 fL (83.0-100.0); Mean Platelet Volume 11.1 fL (9.4-12.4); Platelet Count 158 K/mcL (140-400); Red Blood Count 3.24 M/mcL (4.19-5.50)
[2018-04-03] MEDS: Magnesium Oxide 400 MG TABLET PO SCH (07:40)
[2018-04-03] MEDS: Furosemide 40 MG TABLET PO SCH ×2 (07:40→16:44)
[2018-04-03] MEDS: Cholecalciferol (D-3) 1,000 UNIT TABLET PO SCH (07:40)
[2018-04-03] MEDS: Cyanocobalamin (B-12) 1,000 MCG TABLET PO SCH (07:40)
[2018-04-03 07:41] LABS: Calcium 9.1 mg/dL (8.6-10.3); Potassium 4.8 mEq/L (3.5-5.1)
[2018-04-03] MEDS: Baclofen 10 MG TABLET PO SCH ×3 (07:41→21:28)
[2018-04-03] MEDS: *HR* OxyCODONE/APAP 5/325 TABLET PO PRN ×3 (07:45→21:27)
[2018-04-03] MEDS: Pregabalin 50 MG CAPSULE PO SCH ×2 (07:47→21:31)
[2018-04-03] MEDS: Lactulose Oral Soln 20 GM/30 ML UDC PO SCH ×2 (07:47→21:27)
[2018-04-03 07:58] LABS: Lymphocytes # 0.7 K/mcL (0.6-4.6); Monocytes # 0.2 K/mcL (0.0-1.3); Neutrophils # 15.4 K/mcL (1.6-8.9)
[2018-04-03 07:59] LABS: Platelet Estimate Normal (Normal)
[2018-04-03] MEDS ORDERED: *HR* Heparin 10,000 UNIT/10 ML VIAL IV PRN (08:27)
[2018-04-03] MEDS ORDERED: 0.9 % Sodium Chloride 250 ML IVC PRN (08:27)
[2018-04-03] MEDS ORDERED: 0.9 % Sodium Chloride 1,000 ML PRIME SCH (08:30)
--- NOTE | 2018-04-03 09:45 | Vascular/Endovas Progress Note ---
Date of Encounter: 04/03/18 Time of Encounter: 08:30 - Assessment and plan (1) CKD (chronic kidney disease), stage V Current Visit: Yes Status: Chronic Patient is presently being dialyzed on a Sunday schedule through the dialysis facility in [place] as an outpatient. The patient was dialyzed today. The patient has been dialyzed approximately 1 month via a right internal jugular vein permanent hemodialysis catheter. (2) Morbid obesity Current Visit: Yes Status: Chronic Patient has dramatic morbid obesity (3) Chronic pain syndrome Current Visit: Yes Status: Chronic Patient has chronic pain syndrome involving his spine. He is status post nerve stimulator. this has not been recharged for number of years. The patient is controlling his pain with Percocet [facility]. (4) Carotid stenosis, bilateral Current Visit: Yes Status: Acute Patient is postoperative day #1 following right carotid endarterectomy. He had no periprocedural complications. The patient is doing well. Patient may receive dialysis today as scheduled and may be transferred off of to [facility] and return to . From vascular surgery standpoint patient may be discharged when deemed appropriate by the medical service. Patient is to follow-up with me in my office in 3 weeks. Patient will need left carotid endarterectomy in approximately 1 month. (5) COPD (chronic obstructive pulmonary disease) Current Visit: Yes Status: Chronic Patient tolerated the general anesthetic and intubation well from carotid endarterectomy last night. He has had no pulmonary complications following surgery. Qualifiers: COPD type: emphysema Emphysema type: panlobular Qualified Code(s): J43.1 - Panlobular emphysema - Subjective Interval history: Patient is postoperative day #1 following right carotid endarterectomy. He had an uneventful night. He has no complaints referable to the right carotid surgery or the anesthetic. He has no respiratory compromise or deterioration from his preoperative status. The patient was able to be extubated on the operating room table following surgery last night. Vital Signs, Last 4 Hours Temp Pulse Resp BP Pulse Ox 04/03/18 07:20 98.2 F 76 18 129/59 93 - Physical Examination General: Present: Conversant, No Apparent Distress HEENT: Present: Atraumatic, Normocephaly, Trachea midline Neck: Absent: JVD Cardiac: Present: Reg Rate and Rhythm Lungs: Present: Normal Breath Sounds Neuro: Present: Alert and responsive, No focal deficits noted, Cranial nerves grossly intact Vascular: Present: Surgical incisions (Right neck incision dressing is intact and dry.) Results 04/03/18 07:11 04/03/18 07:11 Lab Results, Last 24 hours 04/02/18 04/03/18 04/03/18 21:42 07:11 07:11 WBC 19.5 H 16.7 H Hgb 10.3 L 10.0 L Hct 31.9 L 31.7 L Plt Count 167 158 Sodium 136 Potassium 4.8 Chloride 101 Carbon Dioxide 25 BUN 36 H Creatinine 4.10 H Glucose 139 H Calcium 9.1 Consult Discharge Plan - Plan Referrals: [facility] [Primary Care Provider] - (This patient has [facility] [employer] [facility]/ they come to his home and see the patient, they will have to call when he is released) Asher Barcenas MD [Partnered Physician] - 04/24/18 9:45 am
[2018-04-03] MEDS: Budesonide/Formoterol 160/4.5 1 PUFF INH IH SCH ×2 (10:30→22:19)
--- NOTE | 2018-04-03 11:34 | Nephrology Progress Note ---
Date of Encounter: 04/03/18 Time of Encounter: 11:32 - Assessment and Plan (1) ESRD (end stage renal disease) on dialysis Current Visit: Yes Status: Acute Current regimen is MWF at [facility]. HD in progress today. Avoid nephrotoxins and renal dose all medications. Strict I/O. (2) Acute and chronic respiratory failure with hypoxia Current Visit: Yes Status: Acute Per primary, titrate oxygen accordingly. (3) Carotid artery disease Current Visit: Yes Status: Chronic Patient reports history of 90% carotid artery blockage Per Vascular. Qualifiers: Laterality: unspecified laterality Qualified Code(s): I77.9 - Disorder of arteries and arterioles, unspecified (4) Carotid stenosis, bilateral Current Visit: Yes Status: Acute Per vascular. S/P Right Carotid Endarterectomy with Dr. Barcenas, this POD 1. (5) Anemia Current Visit: Yes Status: Acute Goal Hgb is 10-11. Hgb is 10 today, stable. Qualifiers: Qualified Code(s): D64.9 - Anemia, unspecified Subjective Principal diagnosis: severe b/l carotid stenosis Interval history: Pt seen and examined, during HD, tolerating well. Denies CP or feeling light headed. Denies nausea/vomiting/diarrhea. Objective - Vital Signs Vital signs: Vital Signs Temp Pulse Resp BP Pulse Ox 04/03/18 07:20 98.2 F 76 18 129/59 93 04/03/18 04:04 18 94 04/03/18 03:35 75 16 128/68 94 04/03/18 03:19 97.9 F 78 20 125/61 95 04/02/18 23:10 98.0 F 86 16 134/61 98 04/02/18 22:25 82 16 149/65 04/02/18 22:19 16 195/60 92 04/02/18 22:05 85 16 140/66 91 04/02/18 21:50 84 18 147/62 91 04/02/18 21:39 97.9 F 85 20 152/72 93 04/02/18 21:22 98.0 F 87 16 162/72 93 04/02/18 21:12 89 16 167/87 92 04/02/18 21:02 99.2 F 89 16 167/81 93 04/02/18 20:52 94 18 166/82 97 04/02/18 20:42 99 20 175/72 98 04/02/18 20:32 98.5 F 96 20 179/82 95 04/02/18 15:16 98.4 F 70 16 129/62 94 Intake and Output 04/02/18 04/03/18 04/03/18 23:59 07:59 15:59 Intake Total 120 / 120 Output Total 100 / 100 600 / 600 Balance -100 / -100 -600 / -600 120 / 120 Intake: Oral 120 / 120 Output: Estimated Blood Loss 100 / 100 Catheter 600 / 600 Other: Meal Breakfast Percent of Meal Consumed 90% Weight 151 kg - General Appearance General appearance: Present: well-developed, well-nourished, obese EENT: Present: ATNC, hearing intact, vision intact Neck: Present: supple Respiratory: Present: clear Cardiology: Present: edema (Trace edema to bilat lower extremities.), normal S1, normal S2 Dialysis Vascular Access: Venous Catheter (Tunneled line, DRSG c/D/I) Gastrointestinal: Present: normoactive bowel sounds, no tenderness, no guarding Integumentary: Present: no rash, warm and dry Neurologic: Present: alert and oriented x3 Psychiatric: Present: mood/affect appropriate, cooperative - Lab 04/03/18 07:11 04/03/18 07:11 Most recent lab results ABG pH 7.41 pH Units (7.32-7.45) 03/31/18 11:49 ABG pCO2 44 mmHg (35-45) 03/31/18 11:49 ABG pO2 77 mmHg (85-104) L 03/31/18 11:49 ABG HCO3 28 mEq/L (21-27) H 03/31/18 11:49 ABG O2 Saturation 95 % (95-98) 03/31/18 11:49 Calcium 9.1 mg/dL (8.6-10.3) 04/03/18 07:11 Phosphorus 5.8 mg/dL (2.7-4.5) H 03/25/18 14:59 Magnesium 2.2 mg/dL (1.6-2.6) 03/31/18 07:43 Consult Discharge Plan - Plan Referrals: [facility] [Primary Care Provider] - (This patient has [facility] [employer] [facility]/ they come to his home and see the patient, they will have to call when he is released) Asher Barcenas MD [Partnered Physician] - 04/24/18 9:45 am
[2018-04-03] MEDS ORDERED: 0.9 % Sodium Chloride 1,000 ML ONE (12:28)
[2018-04-03] MEDS: FluocinoNIDE 0.05% CRM 15 GM TUBE TP SCH ×3 (13:29→21:33)
[2018-04-03] MEDS: Miconazole 2% ointment 114 GM TUBE TP SCH (13:29)
[2018-04-03] MEDS ORDERED: Sennosides 8.6 MG TABLET PO SCH (21:00)
--- NOTE | 2018-04-03 22:52 | Internal Med Progress Note ---
Hospitalist Progress Note - Encounter Date of Encounter: 04/03/18 Time of Encounter: 15:00 - Subjective Interval History: SUBJECTIVE: The patient had right endarterectomy yesterday. She did well during and after the surgery. Denies chest pain. Denies difficulty breathing, coughing and wheezing. Denies abdominal pain, nausea and vomiting. The patient gets hemodialysis; has end-stage renal disease. OBJECTIVE: Skin: Free of rash and discoloration. ENMT: Oral/pharyngeal mucosa is normal in appearance. Eyes: Sclera is white. There is no discharge from eyes. Respiratory: Normal breath sounds; no crackles or wheezes. CV: Heart is regular; no gallop or murmur. GI: Abdomen is soft and not tender. There is no palpable mass or visceromegaly. Neuro: There is no focal deficits. ASSESSMENT AND PLAN: COPD exacerbation. Basically, stable at this time. He gets nebulizer treatments with DuoNeb. He has chronic respiratory failure; the acute component subsided. He uses supplemental oxygen at 3 L/min nasal cannula. End-stage renal disease, on hemodialysis. See notes from nephrology. Peripheral arterial disease. He had endarterectomy yesterday for treatment of severe right carotid artery stenosis. Debility. He will benefit from rehab ECF. DISPOSITION: A referral has been made to ECF. - Exam Vitals: Temp Pulse Resp BP Pulse Ox 98.3 F 70 18 127/66 92 04/03/18 20:24 04/03/18 20:24 04/03/18 22:19 04/03/18 20:24 04/03/18 22:19 Exam: xx - Assessment and Plan (1) COPD exacerbation Current Visit: Yes Status: Acute (2) ESRD on hemodialysis Current Visit: Yes Status: Chronic (3) Chronic respiratory failure with hypoxia Current Visit: Yes Status: Chronic (4) PAD (peripheral artery disease) Current Visit: Yes Status: Chronic - Time Spent with Patient Total time spent is greater than 50% in coordination of care (as documented) at patient's floor/unit and/or counseling patient: 25 - 35 minutes Plan of Care Discussed with: patient Internal Medicine: Result - Labs CBC & Chem 7: 04/03/18 07:11 04/03/18 07:11 Labs: Short CBC 04/03/18 Range/Units 07:11 WBC 16.7 H (4.3-11.1) K/mcL Hgb 10.0 L (12.9-16.9) g/dL Hct 31.7 L (37.5-50.1) % Plt Count 158 (140-400) K/mcL Neutrophils # 15.4 H (1.6-8.9) K/mcL BMP 04/03/18 07:11 Sodium 136 Potassium 4.8 Chloride 101 Carbon Dioxide 25 BUN 36 H Creatinine 4.10 H Glucose 139 H Calcium 9.1 - ABG Interpretation ABG results: ABG ABG pH 7.41 pH Units (7.32-7.45) 03/31/18 11:49 ABG pCO2 44 mmHg (35-45) 03/31/18 11:49 ABG pO2 77 mmHg (85-104) L 03/31/18 11:49 ABG O2 Saturation 95 % (95-98) 03/31/18 11:49 - Impressions Impressions Chest X-Ray 04/03/18 10:37 IMPRESSION: No acute process. D/ / Roger Zabala MD / Roger Zabala MD Interpreting Provider: Roger Zabala MD Consult Discharge Plan - Plan Referrals: [facility] [Primary Care Provider] - (This patient has [facility] [employer] [facility]/ they come to his home and see the patient, they will have to call when he is released) Asher Barcenas MD [Partnered Physician] - 04/24/18 9:45 am
[2018-04-04] MEDS: Ipratropium/Albuterol Neb 3 ML IH SCH ×3 (03:32→16:52)
[2018-04-04] MEDS: *HR* OxyCODONE/APAP 5/325 TABLET PO PRN ×3 (04:16→16:49)
[2018-04-04] MEDS: *HR* Heparin 5,000 UNIT/ML VIAL SQ SCH ×2 (05:48→16:52)
[2018-04-04] MEDS: Magnesium Oxide 400 MG TABLET PO SCH (07:47)
[2018-04-04] MEDS: Cholecalciferol (D-3) 1,000 UNIT TABLET PO SCH (07:48)
[2018-04-04] MEDS: Cyanocobalamin (B-12) 1,000 MCG TABLET PO SCH (07:48)
[2018-04-04] MEDS: Pregabalin 50 MG CAPSULE PO SCH (07:49)
[2018-04-04] MEDS: Furosemide 40 MG TABLET PO SCH ×2 (07:49→16:37)
[2018-04-04] MEDS: Lactulose Oral Soln 20 GM/30 ML UDC PO SCH (07:49)
[2018-04-04] MEDS: Baclofen 10 MG TABLET PO SCH ×2 (07:49→15:22)
[2018-04-04] MEDS: Miconazole 2% ointment 114 GM TUBE TP SCH (07:52)
[2018-04-04] MEDS: FluocinoNIDE 0.05% CRM 15 GM TUBE TP SCH ×2 (07:52→15:24)
--- NOTE | 2018-04-04 10:21 | Vascular/Endovas Progress Note ---
Date of Encounter: 04/04/18 Time of Encounter: 09:30 - Assessment and plan (1) CKD (chronic kidney disease), stage V Current Visit: Yes Status: Chronic Patient is presently being dialyzed on a Sunday schedule through the dialysis facility in [place] as an outpatient. The patient was dialyzed yesterday. The patient has been dialyzed approximately 1 month via a right internal jugular vein permanent hemodialysis catheter. (2) Morbid obesity Current Visit: Yes Status: Chronic Patient has dramatic morbid obesity (3) Chronic pain syndrome Current Visit: Yes Status: Chronic Patient has chronic pain syndrome involving his spine. He is status post nerve stimulator. this has not been recharged for number of years. The patient is controlling his pain with Percocet which [facility]. (4) Carotid stenosis, bilateral Current Visit: Yes Status: Acute Patient is postoperative day #2 following right carotid endarterectomy. He had no periprocedural complications. The patient is doing well. Patient may receive dialysis tomorrow as scheduled. From vascular surgery standpoint patient may be discharged when deemed avelina ropriate by the medical service. Patient is to follow-up with me in my office in 3 weeks. Patient will need left carotid endarterectomy in approximately 1 month. (5) COPD (chronic obstructive pulmonary disease) Current Visit: Yes Status: Chronic Patient tolerated the general anesthetic and intubation well from carotid endarterectomy on Sunday night. He has had no pulmonary complications following surgery. Qualifiers: COPD type: emphysema Emphysema type: panlobular Qualified Code(s): J43.1 - Panlobular emphysema - Subjective Interval history: Patient is postoperative day #2 following right carotid endarterectomy. He has minimal complaints related to the surgery. His sore throat is significantly improved. Patient does have some left-sided leg issues which preceded his operation. He missed his physical therapy session yesterday and was dialyzed. The patient is to receive physical therapy again today. Vital Signs, Last 4 Hours Temp Pulse Resp BP Pulse Ox 04/04/18 07:05 99.0 F 75 18 122/67 95 - Physical Examination General: Present: Conversant, No Apparent Distress HEENT: Present: Atraumatic, Normocephaly, Trachea midline Neck: Absent: JVD Cardiac: Present: Reg Rate and Rhythm Neuro: Present: Alert and responsive, No focal deficits noted, Cranial nerves grossly intact Vascular: Present: Surgical incisions (Right neck incision is clean and dry. The surgical dressing was removed. There is only a minimal amount of discoloration of the skin.) Results 04/03/18 07:11 04/03/18 07:11 Consult Discharge Plan - Plan Additional Instructions: Keep right neck incision dry for a total of 5 days following surgery. No lifting greater than 10 pounds. Referrals: [facility] [Primary Care Provider] - (This patient has [facility]/ they come to his home and see the patient, they will have to call when he is released) Asher Barcenas MD [Partnered Physician] - 04/24/18 9:45 am
[2018-04-04] MEDS: Budesonide/Formoterol 160/4.5 1 PUFF INH IH SCH (10:53)
--- NOTE | 2018-04-04 11:10 | Nephrology Progress Note ---
Date of Encounter: 04/04/18 Time of Encounter: 11:08 - Assessment and Plan (1) ESRD (end stage renal disease) on dialysis Current Visit: Yes Status: Acute Current regimen is MWF at [facility]. HD completed yesterday. Avoid nephrotoxins and renal dose all medications. Strict I/O. (2) Acute and chronic respiratory failure with hypoxia Current Visit: Yes Status: Acute Per primary, titrate oxygen accordingly. (3) Carotid artery disease Current Visit: Yes Status: Chronic Patient reports history of 90% carotid artery blockage Per Vascular. Qualifiers: Qualified Code(s): I77.9 - Disorder of arteries and arterioles, unspecified (4) Carotid stenosis, bilateral Current Visit: Yes Status: Acute Per vascular. S/P Right Carotid Endarterectomy with Dr. Barcenas, this POD 2. Per note, pt needs L CEA in approximately 1 month. (5) Anemia Current Visit: Yes Status: Acute Goal Hgb is 10-11. No new labs for today. Qualifiers: Qualified Code(s): D64.9 - Anemia, unspecified Subjective Principal diagnosis: severe b/l carotid stenosis Interval history: Pt seen and examined, doing well. Denies CP, SOB, or syncope. Objective - Vital Signs Vital signs: Vital Signs Temp Pulse Resp BP Pulse Ox 04/04/18 10:55 18 96 04/04/18 07:05 99.0 F 75 18 122/67 95 04/04/18 04:58 97.6 F 73 20 117/59 93 04/04/18 03:32 20 93 04/04/18 01:09 97.6 F 77 18 116/51 94 04/03/18 22:19 18 92 04/03/18 20:24 98.3 F 70 18 127/66 95 04/03/18 15:50 18 93 04/03/18 14:37 98.6 F 90 16 131/50 93 04/03/18 13:12 97.6 F 18 151/84 04/03/18 12:40 128/63 04/03/18 12:25 116/66 04/03/18 12:10 127/89 04/03/18 11:55 133/78 04/03/18 11:40 128/83 04/03/18 11:25 149/75 04/03/18 11:10 156/81 Intake and Output 04/03/18 04/04/18 04/04/18 23:59 07:59 15:59 Other: Blood Glucose* 125 122 - General Appearance General appearance: Present: well-developed, well-nourished, obese EENT: Present: ATNC, hearing intact, vision intact Neck: Present: supple Respiratory: Present: clear Cardiology: Present: no edema, normal S1, normal S2 Dialysis Vascular Access: Venous Catheter (Tunneled Line, dRSG C/D/I) Gastrointestinal: Present: normoactive bowel sounds, no tenderness, no guarding Integumentary: Present: no rash, warm and dry Neurologic: Present: alert and oriented x3 Psychiatric: Present: mood/affect appropriate, cooperative - Lab 04/03/18 07:11 04/03/18 07:11 Most recent lab results ABG pH 7.41 pH Units (7.32-7.45) 03/31/18 11:49 ABG pCO2 44 mmHg (35-45) 03/31/18 11:49 ABG pO2 77 mmHg (85-104) L 03/31/18 11:49 ABG HCO3 28 mEq/L (21-27) H 03/31/18 11:49 ABG O2 Saturation 95 % (95-98) 03/31/18 11:49 Calcium 9.1 mg/dL (8.6-10.3) 04/03/18 07:11 Phosphorus 5.8 mg/dL (2.7-4.5) H 03/25/18 14:59 Magnesium 2.2 mg/dL (1.6-2.6) 03/31/18 07:43 Consult Discharge Plan - Plan Additional Instructions: Keep right neck incision dry for a total of 5 days following surgery. No lifting greater than 10 pounds. [facility] Care Provider[facility] - ([facility]/ they come to his home and see the patient, they will have to call when he is released) Asher Barcenas MD [Partnered Physician] - 04/24/18 9:45 am
--- NOTE | 2018-04-04 14:48 | Discharge Summary ---
Date of Encounter: 04/04/18 Time of Encounter: 14:30 - Discharge Diagnosis (1) COPD exacerbation Priority: Primary Status: Acute (2) ESRD on hemodialysis Priority: Primary Status: Chronic (3) Hypertensive kidney disease with ESRD (end-stage renal disease) Priority: Secondary Status: Chronic (4) Chronic respiratory failure with hypoxia Priority: Secondary Status: Chronic (5) PAD (peripheral artery disease) Priority: Secondary Status: Chronic (6) CAD (coronary artery disease) Priority: Secondary Status: Chronic Qualifiers: Coronary Disease-Associated Artery/Lesion type: [place] artery [place] vs. transplanted heart: [place] heart Associated angina: without angina Qualified Code(s): I25.10 - Atherosclerotic heart disease of [place] coronary artery without angina pectoris Hospital course: HOSPITAL COURSE: The patient is an 67-year-old man who has end-stage renal disease (likely due to long-standing hypertension). We admitted him with difficulty breathing, likely secondary to COPD exacerbation. He got and nebulizer treatments with DuoNeb. There is no need for antibiotics/steroids. We presented him to nephrology. They started him on hemodialysis. One can see elevated WBC, likely secondary to treatment with steroids (was getting before this hospitalization). His difficulty breathing subsided shortly after the admission. He does have mild cough but not wheezing. CONDITION AT DISCHARGE: He feels good. Denies chest pain. He does have mild cough but not wheezing. Denies abdominal pain, nausea and vomiting. Skin: Free of rash and discoloration. Respiratory: Normal breath sounds with no crackles and wheezes bilaterally. CV: Heart is regular with no gallop or murmur. GI: Abdomen is flat and soft with no palpable mass or visceromegaly. Neuro exam: There is no focal deficits. Normal speech, swallowing and gait. SEE DISCHARGE ORDERS/MEDICATIONS.. He will continue hemodialysis in outpatient settings. 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, case management - Time Spent with Patient Total time spent providing and/or coordinating discharge services: Greater than 30 minutes (40 minutes) - Discharge Medications Prescriptions: Tizanidine HCl [Zanaflex] 2 mg PO QID #20 cap Home Medications: Allopurinol [Zyloprim 100 MG] 200 mg PO DAILY 09/28/15 [History] Budesonide/Formoterol 160/4.5 [Symbicort 160/4.5] 2 puff IH BID 09/28/15 [History] OxyCODONE/APAP 5/325 [Percocet 5/325 MG] 1 tab PO Q6HR PRN 09/28/15 [History] Pantoprazole Sodium [Protonix] 40 mg PO DAILY 09/28/15 [History] Albuterol Sulfate [Proair Hfa] 2 puff IH Q4H PRN 12/14/15 [History] Calcitriol 0.5 mcg PO DAILY 02/26/18 [History] Cyanocobalamin (Vitamin B-12) [Vitamin B12] 1,000 mcg PO DAILY 02/26/18 [History] Sennosides [Senna] 2 tab PO HS 02/26/18 [History] Tiotropium [place] [Spiriva Respimat] 2 puff IH DAILY 02/26/18 [History] Atorvastatin [Lipitor] 40 mg PO HS 03/14/18 [History] Cholecalciferol (D-3) [Vitamin D] 3,000 unit PO DAILY 03/14/18 [History] Ferrous Sulfate [Iron] 325 mg PO DAILY 03/14/18 [History] Magnesium Oxide [Magnesium] 400 mg PO DAILY 03/14/18 [History] FluocinoNIDE 0.05% CRM [Lidex] 1 appl TP TID 03/25/18 [History] Metoprolol [Lopressor] 12.5 mg PO BID 03/25/18 [History] Miconazole 2% ointment [Aloe [place] Antifungal Ointment] 1 applic TP DAILY 03/25/18 [History] Pregabalin [Lyrica] 50 mg PO BID 03/25/18 [History] Docusate Sodium [Dok] 100 mg PO BID #0 04/04/18 [Rx] Furosemide [Lasix] 20 mg PO DAILY #0 04/04/18 [Rx] Lactulose 20 gm PO BID udc 04/04/18 [Rx] Meclizine HCl [Verticalm] 12.5 mg PO BID #0 04/04/18 [Rx] Ondansetron [Zofran] 4 mg PO Q6HR PRN #0 04/04/18 [Rx] Potassium Chloride [Klor-Con 10] 10 meq PO BID #0 04/04/18 [Rx] Tizanidine HCl [Zanaflex] 2 mg PO QID #20 cap 04/04/18 [Rx] Allergies/Adverse Reactions: Allergy/AdvReac Type Severity Reaction Status Date / Time NSAIDS (Non-Steroidal Allergy See Verified 09/28/15 20:55 Anti-Inflamma Comments Date of admission: 03/25/18 16:42 Primary care physician: PCP AIME Consults: 03/26/18 11:24 Consult to Cardiology [CONS] Routine Comment: Consulting Provider: Cardiology [place] Reason for Consult: CP elevated trop Call Completed: Yes 03/31/18 09:38 Consult to Neurology [CONS] Routine Consulting Provider: Neurology [facility] Reason for Consult: myoclonus Call Completed: Yes 04/03/18 08:30 Consult to Dialysis [CONS] ONCE 04/03/18 08:58 Consult to Nephrology [CONS] Routine Consulting Provider: [facility] Reason for Consult: Per Dr. Matthews/ESRD Time Notified: 08:58 Call Completed: No Discharging clinician: Hang Johnston Anticipated date of discharge: 04/04/18 - Constitutional Vitals: Temp Pulse Resp BP Pulse Ox 98.0 F 75 18 110/66 96 04/04/18 11:20 04/04/18 11:20 04/04/18 11:20 04/04/18 11:20 04/04/18 10:55 General appearance: Present: A&O X 3, no acute distress, answers questions appropriately Exam: xx - Patient Status Disposition: Transfer SNF Condition: Fair Functional capacity at discharge: independent ambulation (with assistance..) Overall status at discharge: patient is progressing back to baseline - Discharge Instructions Instructions: Coronary Artery Disease (GEN), Carotid Endarterectomy (DC) [facility]: [facility] Care Provider[facility] - (This [facility]/ they come to his home and see the patient, they will have to call when he is released) Asher Barcenas MD [Partnered Physician] - 04/24/18 9:45 am Additional Instructions: Keep right neck incision dry for a total of 5 days following surgery. No lifting greater than 10 pounds. HEMODIALYSIS -- THREE TIMES A WEEK.. - Diet and Activity Activity: as per physical therapy Diet: low fat, low cholesterol - VTE Deep Vein Thrombosis/Pulmonary Embolism Present on Admission: No
[2018-04-04] MEDS ORDERED: tiZANidine 4 MG TABLET PO SCH ×2 (15:00→21:00)
--- NOTE | 2018-04-04 15:00 | Physician Discharge Referral ---
ExtendedCare Referral Info Transfer To: ECF Provider in Charge: Justino Johnston MD Provider in Charge after Transfer: Other (an ECF physician..) Institutional Level of Care: Skilled - Diagnosis (1) COPD exacerbation Priority: Primary Status: Acute (2) ESRD on hemodialysis Priority: Primary Status: Chronic (3) Hypertensive kidney disease with ESRD (end-stage renal disease) Priority: Secondary Status: Chronic (4) Chronic respiratory failure with hypoxia Priority: Secondary Status: Chronic (5) PAD (peripheral artery disease) Priority: Secondary Status: Chronic (6) CAD (coronary artery disease) Priority: Secondary Status: Chronic - Transfer Medications Prescriptions: Tizanidine HCl [Zanaflex] 2 mg PO QID #20 cap Home Medications: Allopurinol [Zyloprim 100 MG] 200 mg PO DAILY 09/28/15 [History] Budesonide/Formoterol 160/4.5 [Symbicort 160/4.5] 2 puff IH BID 09/28/15 [History] OxyCODONE/APAP 5/325 [Percocet 5/325 MG] 1 tab PO Q6HR PRN 09/28/15 [History] Pantoprazole Sodium [Protonix] 40 mg PO DAILY 09/28/15 [History] Albuterol Sulfate [Proair Hfa] 2 puff IH Q4H PRN 12/14/15 [History] Calcitriol 0.5 mcg PO DAILY 02/26/18 [History] Cyanocobalamin (Vitamin B-12) [Vitamin B12] 1,000 mcg PO DAILY 02/26/18 [History] Sennosides [Senna] 2 tab PO HS 02/26/18 [History] Tiotropium [place] [Spiriva Respimat] 2 puff IH DAILY 02/26/18 [History] Atorvastatin [Lipitor] 40 mg PO HS 03/14/18 [History] Cholecalciferol (D-3) [Vitamin D] 3,000 unit PO DAILY 03/14/18 [History] Ferrous Sulfate [Iron] 325 mg PO DAILY 03/14/18 [History] Magnesium Oxide [Magnesium] 400 mg PO DAILY 03/14/18 [History] FluocinoNIDE 0.05% CRM [Lidex] 1 appl TP TID 03/25/18 [History] Metoprolol [Lopressor] 12.5 mg PO BID 03/25/18 [History] Miconazole 2% ointment [Aloe [place] Antifungal Ointment] 1 applic TP DAILY 03/25/18 [History] Pregabalin [Lyrica] 50 mg PO BID 03/25/18 [History] Docusate Sodium [Dok] 100 mg PO BID #0 04/04/18 [Rx] Furosemide [Lasix] 20 mg PO DAILY #0 04/04/18 [Rx] Lactulose 20 gm PO BID udc 04/04/18 [Rx] Meclizine HCl [Verticalm] 12.5 mg PO BID #0 04/04/18 [Rx] Ondansetron [Zofran] 4 mg PO Q6HR PRN #0 04/04/18 [Rx] Potassium Chloride [Klor-Con 10] 10 meq PO BID #0 04/04/18 [Rx] Tizanidine HCl [Zanaflex] 2 mg PO QID #20 cap 04/04/18 [Rx] Allergies/Adverse Reactions: Allergy/AdvReac Type Severity Reaction Status Date / Time NSAIDS (Non-Steroidal Allergy See Verified 09/28/15 20:55 Anti-Inflamma Comments - Respiratory Orders None Smoking Cessation: Smoking cessation has been advised. For more information, call the [place] Tobacco Quit Line at 3-648-IQYD-NOW. - Advance Directives Code Status: Full Code - Mobility Orders Ambulate (with assistance) - Rehabiliation Orders Rehab Potential: Fair Rehab Orders: Evaluation for Physical Therapy, Evaluation for Occupational Therapy - Treatments List/Other: HEMODIALYSIS -- THREE TIMES A WEEK.. - Diet Orders No Concentrated Sweets CERTIFICATION: I certify that the transfer of the above named patient to an Extended Care Facility is necessary for the continuing treatment of the diagnosis listed. The above information is true and accurate reflection of patient's current condition. Confidential - Redisclosure prohibited without a patient's written consent.
[2018-04-04 16:11] VITALS: BP 126/73
== END 2018-04-04 17:36 | DRG 252 ==
LOC: 2ANU → SUATTDRO 16:42 → 2NNU 04-02 17:27 → 2ANU 04-03 14:23
PROVIDERS: ADMIT Hospitalist; ATTEND Internal Medicine

== ENCOUNTER 2018-04-28 11:19 | Inpatient (IN) ==
[2018-04-28] MEDS ORDERED: Metoclopramide 10 MG/2 ML VIAL IVP ONE (11:46)
[2018-04-28 11:53] LABS: Hematocrit 34.4 % (37.5-50.1); Hemoglobin 10.7 g/dL (12.9-16.9); Lymphocytes # 2.7 K/mcL (0.6-4.6); Mean Corpuscular HGB Conc 31.1 g/dL (31.6-35.5); Mean Corpuscular Hemoglobin 30.7 pg (28.0-33.3); Mean Corpuscular Volume 98.6 fL (83.0-100.0); Mean Platelet Volume 9.8 fL (9.4-12.4); Monocytes # 1.2 K/mcL (0.0-1.3); Nucleated Red Blood Cells 0.1 /100 WBC (0); Platelet Count 406 K/mcL (140-400); Red Blood Count 3.49 M/mcL (4.19-5.50); Red Cell Distribution Width 16.8 % (11.5-14.5)
[2018-04-28 12:18] LABS: Alanine Aminotransferase 10 Units/L (7-52); Albumin 3.8 g/dL (3.5-5.7); Albumin/Globulin Ratio 1.1 (1.1-2.2); Alkaline Phosphatase 65 Units/L (34-104); Aspartate Amino Transferase 12 Units/L (13-39); BUN/Creatinine Ratio 7 (6-26); Bilirubin,Direct 0.1 mg/dL (0.0-0.2); Bilirubin,Indirect 0.5 mg/dL (0.0-1.2); Bilirubin,Total 0.6 mg/dL (0.3-1.0); Blood Urea Nitrogen 38 mg/dL (8-23); Calcium 9.3 mg/dL (8.6-10.3); Carbon Dioxide 26 mEq/L (23-29); Chloride 98 mEq/L (98-107); Globulin 3.4 g/dL (2.4-3.5); Glucose 97 mg/dL (70-105); INR 1.2; Lipase 32 Units/L (11-82); Magnesium 1.6 mg/dL (1.6-2.6); Neutrophils # 15.4 K/mcL (1.6-8.9); Osmolality,Calculated 295 (280-300); Phosphorous 4.9 mg/dL (2.7-4.5); Potassium 3.7 mEq/L (3.5-5.1); Prothrombin Time 13.1 Seconds (9.4-12.1); Sodium 138 mEq/L (136-145); Total Protein 7.2 g/dL (6.4-8.9); Troponin I < 0.03 ng/mL (< 0.04); eGFR For Non-African Americans 11 (> 60)
[2018-04-28 12:19] LABS: Platelet Estimate Increased (Normal)
--- NOTE | 2018-04-28 12:26 | Emergency Department Note ---
Disposition Clinical Impression: Syncope Qualifiers: Syncope type: unspecified Qualified Code(s): R55 - Syncope and collapse Disposition: Admitted As Inpatient Condition: Fair General Adult HPI - General Chief complaint: ED Nausea/Vomiting/Diarrhea Stated complaint: Nausea Time Seen by Provider: 04/28/18 11:31 Source: patient Mode of arrival: ambulatory Limitations: no limitations Nursing Notes Reviewed: Yes Vital Signs Reviewed: Yes - History of Present Illness HPI Narrative: 67 yo male with past medical history of COPD, CHF, end-stage renal disease on sunday, peripheral artery disease, coronary artery disease presents to the emergency department from home with the chief complaint of "nausea." He states he was having this problem recently but it had stopped after he had a carotid surgery. Since Sunday he has had recurrence of this problem. When asked what he means by nausea, he states that he is losing time and passing out. He did and it is known that he needs another carotid endarterectomy. He currently denies fever, chills, chest pain, shortness of breath, abdominal pain, vomiting, diarrhea. He has not had an increased oxygen demand and wears 5.5 L at home. Pain Scale: 0 - Related Data Home Medications Medication Instructions Recorded Confirmed Allopurinol [Zyloprim 100 MG] 200 mg PO DAILY 09/28/15 03/25/18 Budesonide/Formoterol 160/4.5 2 puff IH BID 09/28/15 03/25/18 [Symbicort 160/4.5] OxyCODONE/APAP 5/325 [Percocet 1 tab PO Q6HR PRN 09/28/15 03/25/18 5/325 MG] Pantoprazole Sodium [Protonix] 40 mg PO DAILY 09/28/15 03/25/18 Albuterol Sulfate [Proair Hfa] 2 puff IH Q4H PRN 12/14/15 03/25/18 Calcitriol 0.5 mcg PO DAILY 02/26/18 03/25/18 Cyanocobalamin (Vitamin B-12) 1,000 mcg PO DAILY 02/26/18 03/25/18 [Vitamin B12] Sennosides [Senna] 2 tab PO HS 02/26/18 03/25/18 Tiotropium [place] [Spiriva 2 puff IH DAILY 02/26/18 03/25/18 Respimat] Atorvastatin [Lipitor] 40 mg PO HS 03/14/18 03/25/18 Cholecalciferol (D-3) [Vitamin D] 3,000 unit PO DAILY 03/14/18 03/25/18 Ferrous Sulfate [Iron] 325 mg PO DAILY 03/14/18 03/25/18 Magnesium Oxide [Magnesium] 400 mg PO DAILY 03/14/18 03/25/18 FluocinoNIDE 0.05% CRM [Lidex] 1 appl TP TID 03/25/18 03/25/18 Metoprolol [Lopressor] 12.5 mg PO BID 03/25/18 03/25/18 Miconazole 2% ointment [Aloe [place] 1 applic TP DAILY 03/25/18 03/25/18 Antifungal Ointment] Pregabalin [Lyrica] 50 mg PO BID 03/25/18 03/25/18 Previous Rx's Medication Instructions Recorded Docusate Sodium [Dok] 100 mg PO BID #0 04/04/18 Furosemide [Lasix] 20 mg PO DAILY #0 04/04/18 Lactulose 20 gm PO BID udc 04/04/18 Meclizine HCl [Verticalm] 12.5 mg PO BID #0 04/04/18 Ondansetron [Zofran] 4 mg PO Q6HR PRN #0 04/04/18 Potassium Chloride [Klor-Con 10] 10 meq PO BID #0 04/04/18 Tizanidine HCl [Zanaflex] 2 mg PO QID #20 cap 04/04/18 Allergies Allergy/AdvReac Type Severity Reaction Status Date / Time NSAIDS (Non-Steroidal Allergy See Verified 04/28/18 11:26 Anti-Inflamma Comments All systems ED: reviewed and negative except as stated. Review of Systems: As Per HPI Constitutional: Denies: fever, chills, weakness Eyes: Denies: vision change Cardiovascular: Reports: dyspnea on exertion, syncope. Denies: chest pain, palpitations Respiratory: Denies: cough, dyspnea, wheezes Gastrointestinal: Denies: abdominal pain, nausea, vomiting Genitourinary: Denies: urgency, dysuria, frequency Musculoskeletal: Denies: back pain, neck pain Integumentary: Denies: rash Neurological: Denies: headache Psychiatric: Denies: anxiety Endocrine: Denies: fatigue Hematological/Lymphatic: Denies: easy bleeding Past Medical History - Past Medical History Medical history: Reports: arthritis, CHF, COPD, GERD, hyperlipidemia, hypertension, peripheral artery disease, renal disease Surgical history: Reports: LE stent(s), LE vascular intervention, other Psychiatric history: Reports: anxiety - Social History Smoking Status: Former smoker Smokeless Tobacco Status: No Alcohol use: Reports: rarely Drug use: Reports: none Physical Exam - General Limitations: no limitations General appearance: alert, in no apparent distress - Head Head exam: atraumatic, normocephalic - Eye Eye exam: Present: normal appearance, PERRL, EOMI - ENT ENT exam: normal exam, mucous membranes moist - Neck Neck exam: Present: normal inspection - Chest Chest inspection: Present: normal inspection. Absent: tenderness - Respiratory Respiratory exam: Present: other (Diminished breath sounds bilaterally). Absent: respiratory distress, wheezes - Cardiovascular Cardiovascular exam: Present: regular rate, normal rhythm - Abdominal Exam Abdominal exam: Present: soft, Non-Tender. Absent: distention, guarding, rebound, rigidity - Extremities Exam Extremities exam: Present: pedal edema. Absent: tenderness, joint swelling, calf tenderness - Back Exam Back exam: Present: normal inspection - Neurological Exam Neurological exam: Present: alert, oriented X3, CN II-XII intact - Psychiatric Psychiatric exam: Present: normal affect, normal mood - Skin Skin exam: Present: warm, dry, intact Course Vital Signs Temperature 97.8 F 04/28/18 11:26 Pulse Rate 68 04/28/18 11:26 Respiratory Rate 20 04/28/18 11:26 Blood Pressure 118/69 04/28/18 11:26 O2 Sat by Pulse Oximetry 93 04/28/18 11:26 Temperature 97.8 F 04/28/18 11:34 Pulse Rate 68 04/28/18 11:34 Respiratory Rate 20 04/28/18 11:34 Blood Pressure 118/69 04/28/18 11:34 O2 Sat by Pulse Oximetry 89 04/28/18 11:39 Oxygen Delivery Oxygen Delivery Nasal Cannula Medical Decision Making - MDM Narrative Medical decision making narrative: This patient's extensive cardiac history we will do an ACS workup with CBC, BMP, BNP, troponin, EKG, coags, and chest x-ray. Since he is also having some epigastric pain we will add on LFTs and a lipase. We will also check mag and phos and due to patient being on dialysis. 1300 - lab work shows stable changes in renal function. Troponin and lipase negative. Elevated white count is normal for this patient. EKG did not show any signs of acute ischemia. Chest x-ray showed no acute cardiopulmonary processes. Hospitalist has been called and has admitted this patient. On-call vascular surgeon was also made aware of this patient. 1400 - patient fell asleep and had a acute hypoxic episode. This caused his blood pressure to drop to 90/30. Once he woke up and began breathing again he became normotensive and his oxygen saturation levels edwina into the upper 80s. He is not complaining of dizziness, stating the room is spinning around him. He R Dimitrios takes meclizine 3 times a day has taken this medication. - Medical Records Medical records reviewed: Yes I reviewed the patient's medical records. - Lab Data Lab results reviewed: Yes I reviewed the patient's lab results. Result diagrams: 04/28/18 11:45 04/28/18 11:45 Lab Results 04/28/18 04/28/18 04/28/18 Range/Units 11:45 11:45 11:45 WBC 19.3 H (4.3-11.1) K/mcL RBC 3.49 L (4.19-5.50) M/mcL Hgb 10.7 L (12.9-16.9) g/dL Hct 34.4 L (37.5-50.1) % MCV 98.6 (83.0-100.0) fL MCH 30.7 (28.0-33.3) pg MCHC 31.1 L (31.6-35.5) g/dL RDW 16.8 H (11.5-14.5) % Plt Count 406 H (140-400) K/mcL MPV 9.8 (9.4-12.4) fL Seg Neutrophils % 80.0 % Lymphocytes % 14.0 % Monocytes % 6.0 % Neutrophils # 15.4 H (1.6-8.9) K/mcL Lymphocytes # 2.7 (0.6-4.6) K/mcL Monocytes # 1.2 (0.0-1.3) K/mcL Nucleated RBCs/100 WBC 0.1 H (0) /100 WBC Platelet Estimate Increased H (Normal) PT (9.4-12.1) Seconds INR APTT (26.0-36.0) Seconds Sodium 138 (136-145) mEq/L Potassium 3.7 (3.5-5.1) mEq/L Chloride 98 (98-107) mEq/L Carbon Dioxide 26 (23-29) mEq/L BUN 38 H (8-23) mg/dL Creatinine 5.08 H (0.70-1.30) mg/dL Est GFR ( Amer) 14 L (> 60) Est GFR (Non-Af Amer) 11 L (> 60) BUN/Creatinine Ratio 7 (6-26) Glucose 97 (70-105) mg/dL Calculated Osmolality 295 (280-300) Lactic Acid (0.5-2.2) mmol/L Calcium 9.3 (8.6-10.3) mg/dL Phosphorus 4.9 H (2.7-4.5) mg/dL Magnesium 1.6 (1.6-2.6) mg/dL Total Bilirubin 0.6 (0.3-1.0) mg/dL Direct Bilirubin 0.1 (0.0-0.2) mg/dL Indirect Bilirubin 0.5 (0.0-1.2) mg/dL AST 12 L (13-39) Units/L ALT 10 (7-52) Units/L Alkaline Phosphatase 65 (34-104) Units/L Troponin I < 0.03 (< 0.04) ng/mL B-Natriuretic Peptide 193 H (Less than 100) pg/mL Serum Total Protein 7.2 (6.4-8.9) g/dL Albumin 3.8 (3.5-5.7) g/dL Globulin 3.4 (2.4-3.5) g/dL Albumin/Globulin Ratio 1.1 (1.1-2.2) Lipase 32 (11-82) Units/L 04/28/18 04/28/18 Range/Units 11:45 13:06 WBC (4.3-11.1) K/mcL RBC (4.19-5.50) M/mcL Hgb (12.9-16.9) g/dL Hct (37.5-50.1) % MCV (83.0-100.0) fL MCH (28.0-33.3) pg MCHC (31.6-35.5) g/dL RDW (11.5-14.5) % Plt Count (140-400) K/mcL MPV (9.4-12.4) fL Seg Neutrophils % % Lymphocytes % % Monocytes % % Neutrophils # (1.6-8.9) K/mcL Lymphocytes # (0.6-4.6) K/mcL Monocytes # (0.0-1.3) K/mcL Nucleated RBCs/100 WBC (0) /100 WBC Platelet Estimate (Normal) PT 13.1 H (9.4-12.1) Seconds INR 1.2 APTT 37.0 H (26.0-36.0) Seconds Sodium (136-145) mEq/L Potassium (3.5-5.1) mEq/L Chloride (98-107) mEq/L Carbon Dioxide (23-29) mEq/L BUN (8-23) mg/dL Creatinine (0.70-1.30) mg/dL Est GFR ( Amer) (> 60) Est GFR (Non-Af Amer) (> 60) BUN/Creatinine Ratio (6-26) Glucose (70-105) mg/dL Calculated Osmolality (280-300) Lactic Acid 1.1 (0.5-2.2) mmol/L Calcium (8.6-10.3) mg/dL Phosphorus (2.7-4.5) mg/dL Magnesium (1.6-2.6) mg/dL Total Bilirubin (0.3-1.0) mg/dL Direct Bilirubin (0.0-0.2) mg/dL Indirect Bilirubin (0.0-1.2) mg/dL AST (13-39) Units/L ALT (7-52) Units/L Alkaline Phosphatase (34-104) Units/L Troponin I (< 0.04) ng/mL B-Natriuretic Peptide (Less than 100) pg/mL Serum Total Protein (6.4-8.9) g/dL Albumin (3.5-5.7) g/dL Globulin (2.4-3.5) g/dL Albumin/Globulin Ratio (1.1-2.2) Lipase (11-82) Units/L - Radiology Data Radiology results reviewed: Yes I reviewed the patient's radiology results. - EKG Data EKG #1 EKG attestation: Yes I reviewed and interpreted this EKG. EKG results narrative: EKG done at 11:54 on 04/28/2018 Heart rate 74 bpm, NC interval 140, QRS duration 101, QT 406, QTC 451 Sinus rhythm with right axis deviation. No signs of ST segment elevations or depressions. No signs of acute ischemia. Unchanged since previous EKG done at 03/26/2018. Attestation Statement - Attestation Attestation: I, Timur Purcell, examined this patient and my medical decision-making was reviewed with the SMT TECHNICIAN/PA/Advanced Practice Nurse/Resident Physician. I agree with the documented findings, disposition and treatment plan as described except to the extent set forth below. 67-year-old male presents emergency Department with concerns of multiple episodes of syncope versus near-syncope. Patient states he has episodes where he becomes very lightheaded, his vision narrows and he loses consciousness. Patient states that this occurs with exertion and at rest. Denies chest pain or palpitations or shortness of breath with these episodes. Patient states that this feels similar to prior to his previous left carotid endarterectomy. Felicity simone initially stated nausea to the triage nurse however upon further evaluation his nausea is more described as lightheadedness. He has not vomited. Patient has a history of chronic renal failure and receives dialysis with Dr. Sharp. Denies fever, chills, nausea, vomiting, diarrhea. Patient had elevation of his white blood cell count however this is been present on previous laboratory results. Imaging did not show significant abnormality. Patient will be admitted to the hospitalist for near syncopal episodes.
--- NOTE | 2018-04-28 13:06 | Emergency Department Note ---
START Narrative - START START: Patient admitted to the hospitalist service. She requested that we add on a lactic acid and blood cultures due to the leukocytosis. Feel like that is reasonable. Also requested that we speak with vascular surgery. I spoke with the on-call vascular surgeon, Dr. Crump. He was familiar with the patient and was the surgeon planning to do his left side and a few weeks. He states that he does not think that the stenosis on the left which was mild around 50% should be contributing to the patient's symptoms and he definitely agreed with admission for further workup of the patient's near syncopal symptoms.
[2018-04-28] MEDS ORDERED: Naloxone 0.4 MG/ML INJ IVP PRN (14:04)
--- NOTE | 2018-04-28 14:32 | Internal Med History&Physical ---
Date of Encounter: 04/28/18 Time of Encounter: 14:28 Internal Medicine - H&P: HPI Chief complaint: Dizziness, nausea Admitted From: Home Plans for Post Hospital Care: Home History of present illness: Mr. Madrid is a 67 year old male with medical history of end-stage renal disease on hemodialysis Sunday, status post right carotid endarterectomy, history of bilateral clinic checks, chronic respiratory failure on home oxygen, morbid obesity hypertension, hyperlipidemia, diabetes mellitus, CHF, COPD. Patient was recently released from this facility on 04/04 s/p a right carotid endarterectomy. He will presented today with complaints of dizziness and nausea which started 2 days ago. The patient reports sensation of feeling lightheaded 2 days ago in the morning, associated with increased myoclonic jerks. He has a hx of chronic mycoclonus, reviewed by neurology in the past at this facility, he reports his checks had resolved after his surgery because on Sunday. He also reports a sensation of feeling the room spinning around him. His partner at the bedside reports the patient has been having visual hallucinations also. He denies vomiting, he denies rhinorrhea, sore throat, myalgias. He denies fever or chills. He denies any sick contacts. He denies ear pain, tinnitus, he however reports a fullness, right worse than left. He has no neck stiffness, denies blurry vision. He denies chest pain, or SOB above baseline, he has been on his home dose of O2. He denies changes in bowel or urinary habits. he has been compliant with his home meds, and HD sessions At time of review, patient was hemodynamically stable and on his home O2 dose of 5.5 L, no speech or motor deficits Work up in ER revealed leukocytosis, thrombocytosis, anemia is at baseline, chem . LFT, lactate, lipase at baseline. CXR was unremarkable He will be placed on observation for work up of dizziness Past Med Surg Social Fam HX - Past Medical History Medical history: arthritis, CHF, COPD, GERD, hyperlipidemia, hypertension, peripheral artery disease, renal disease Additional medical history: sleep apnea. Dialysis- M,W,F Psychiatric history: anxiety - Past Surgical History Surgical History: LE stent(s), LE vascular intervention, other Additional surgical history: dental - bronchoscopy x 2 - egd - right femoral stent - spine stimulator - Social History Smoking Status: Former smoker Smokeless Tobacco Status: No Alcohol use: rarely Drug use: none - Family History Mother Adopted: No Family Member Ethnicity: Non- Living Status: Hx Family Cardiac Disorders: No Hx Family Respiratory Disorders: (COPD) Hx Family Cancer: Yes (ovarian cancer) Hx Family GI Disorders: No Hx Family Endocrine Disorder: No Hx Family Neuromuscular Disorders: No Hx Family Neurologic Disorders: No Hx Family HEENT Disorders: No Hx Family Autoimmune Disorders: No Internal Medicine - H&P: Meds Allopurinol [Zyloprim 100 MG] 200 mg PO DAILY 09/28/15 [History] Budesonide/Formoterol 160/4.5 [Symbicort 160/4.5] 2 puff IH BID 09/28/15 [History] OxyCODONE/APAP 5/325 [Percocet 5/325 MG] 1 tab PO Q6HR PRN 09/28/15 [History] Pantoprazole Sodium [Protonix] 40 mg PO DAILY 09/28/15 [History] Albuterol Sulfate [Proair Hfa] 2 puff IH Q4H PRN 12/14/15 [History] Calcitriol 0.5 mcg PO DAILY 02/26/18 [History] Cyanocobalamin (Vitamin B-12) [Vitamin B12] 1,000 mcg PO DAILY 02/26/18 [History] Sennosides [Senna] 2 tab PO HS 02/26/18 [History] Tiotropium [place] [Spiriva Respimat] 2 puff IH DAILY 02/26/18 [History] Atorvastatin [Lipitor] 40 mg PO HS 03/14/18 [History] Cholecalciferol (D-3) [Vitamin D] 3,000 unit PO DAILY 03/14/18 [History] Ferrous Sulfate [Iron] 325 mg PO DAILY 03/14/18 [History] Magnesium Oxide [Magnesium] 400 mg PO DAILY 03/14/18 [History] FluocinoNIDE 0.05% CRM [Lidex] 1 appl TP TID 03/25/18 [History] Metoprolol [Lopressor] 12.5 mg PO BID 03/25/18 [History] Miconazole 2% ointment [Aloe [place] Antifungal Ointment] 1 applic TP DAILY 03/25/18 [History] Pregabalin [Lyrica] 50 mg PO BID 03/25/18 [History] Docusate Sodium [Dok] 100 mg PO BID #0 04/04/18 [Rx] Furosemide [Lasix] 20 mg PO DAILY #0 04/04/18 [Rx] Lactulose 20 gm PO BID udc 04/04/18 [Rx] Meclizine HCl [Verticalm] 12.5 mg PO BID #0 04/04/18 [Rx] Ondansetron [Zofran] 4 mg PO Q6HR PRN #0 04/04/18 [Rx] Potassium Chloride [Klor-Con 10] 10 meq PO BID #0 04/04/18 [Rx] Tizanidine HCl [Zanaflex] 2 mg PO QID #20 cap 04/04/18 [Rx] Allergy/AdvReac Type Severity Reaction Status Date / Time NSAIDS (Non-Steroidal Allergy See Verified 04/28/18 11:26 Anti-Inflamma Comments All Systems PM: A 10-system review of systems was performed and is negative for pertinent findings except as documented above in the HPI. - Constitutional Constitutional: as per HPI - EENT Eyes: as per HPI Ears: as per HPI Nose, mouth and throat: as per HPI - Cardiovascular Cardiovascular ROS IM: as per HPI - Respiratory Respiratory: as per HPI - Gastrointestinal Gastrointestinal: as per HPI - Musculoskeletal Musculoskeletal ROS IM: as per HPI - Integumentary Integumentary IM: as per HPI - Neurological Neurological ROS: as per HPI - Hematologic/Lymphatic Hematologic/Lymphatic: as per HPI - Constitutional Vitals: Temp Pulse Resp BP Pulse Ox 97.8 F 68 18 127/71 89 04/28/18 11:34 04/28/18 11:34 04/28/18 14:20 04/28/18 14:20 04/28/18 11:39 General appearance: Present: A&O X 3, morbidly obese, pleasant Exam: VSS Gen: Not in distress, speaks full sentences, morbidly obese HEENT: Moist oral mucosa, not pale, anicteric, not cyanotic. Right carotid scar. No bruits Chest: No chest wall tenderness Resp: CTAB, no added sounds, diminished air entry at the bases, likely due to body habitus Heart: S1, S2 only, no m/g/r. Abdomen: Obese, not tender, no palpably enlarged organs Extremities: No edema Neuro: Alert, awake, oriented X3. Pupils are equal and reactive, Nystagmus, horizontal, fatigues, speech is normal , no facial paralysis, moves all extremities equally Skin: No rash Psych: Appropriate affect Internal Med - H&P Results - Labs CBC & Chem 7: 04/28/18 11:45 04/28/18 11:45 Labs: Short CBC 04/28/18 Range/Units 11:45 WBC 19.3 H (4.3-11.1) K/mcL Hgb 10.7 L (12.9-16.9) g/dL Hct 34.4 L (37.5-50.1) % Plt Count 406 H (140-400) K/mcL Neutrophils # 15.4 H (1.6-8.9) K/mcL BMP 04/28/18 11:45 Sodium 138 Potassium 3.7 Chloride 98 Carbon Dioxide 26 BUN 38 H Creatinine 5.08 H Glucose 97 Calcium 9.3 Cardiac Enzymes 04/28/18 Range/Units 11:45 Troponin I < 0.03 (< 0.04) ng/mL Liver Function 04/28/18 Range/Units 11:45 Total Bilirubin 0.6 (0.3-1.0) mg/dL Direct Bilirubin 0.1 (0.0-0.2) mg/dL AST 12 L (13-39) Units/L ALT 10 (7-52) Units/L Alkaline Phosphatase 65 (34-104) Units/L Albumin 3.8 (3.5-5.7) g/dL - Impressions ITS Impressions Chest X-Ray 04/28/18 11:46 IMPRESSION: No acute cardiopulmonary process. D/ / Fabiano Gallardo MD / Fabiano Gallardo MD Interpreting Provider: Fabiano Gallardo MD - Assessment and plan (1) Dizziness Current Visit: Yes Status: Acute Assessment and plan: Patient , poor historian , however complained of having dizziness for the past 2 days with ear fulness, no hearing loss, no tinnitus he also complained of vertigo and on evaluation states "the room is spinning" he has no neurologic deficits at this time His spouse at the bedside also stated patient was having visual hallucinations at home, seeing "bugs on the ceiling when there were none) Will obtain Head CT, MRi will be ideal but patient has a spinal stimulator, as well as a hip repalcement Follow head imaging reports (2) Leukocytosis Current Visit: Yes Status: Acute Assessment and plan: Chronic, noted Infectious disease eval from last admission Afebrile, no focus of infection Consult oncology/hematology, will call a.m Qualifiers: Leukocytosis type: unspecified Qualified Code(s): D72.829 - Elevated white blood cell count, unspecified (3) Thrombocytosis Current Visit: Yes Status: Acute Assessment and plan: consider essential thrombocytosis, heme/onc eval a,.m (4) Anemia Current Visit: Yes Status: Chronic Assessment and plan: chronic, stable Qualifiers: Anemia type: due to chronic kidney disease Chronic kidney disease stage: on chronic dialysis Qualified Code(s): N18.6 - End stage renal disease; D63.1 - Anemia in chronic kidney disease; Z99.2 - Dependence on renal dialysis (5) CAD (coronary artery disease) Current Visit: Yes Status: Chronic Assessment and plan: continue home meds Qualifiers: Coronary Disease-Associated Artery/Lesion type: nikolai artery [place] vs. transplanted heart: nikolai heart Associated angina: without angina Qualified Code(s): I25.10 - Atherosclerotic heart disease of nikolai coronary artery without angina pectoris (6) Carotid stenosis, bilateral Current Visit: Yes Status: Chronic Assessment and plan: continue home meds No indication for CTA neck or carotids If work up for dizziness negative, consider vascular eval, per ED note, vascular was called and they do not believe patient's symptoms are related to his carotid stenosis at this time (7) CHF (congestive heart failure) Current Visit: Yes Status: Chronic Assessment and plan: continue home meds HD per schedule Qualifiers: Heart failure type: diastolic Heart failure chronicity: chronic Qualified Code(s): I50.32 - Chronic diastolic (congestive) heart failure (8) Chronic pain syndrome Current Visit: Yes Status: Chronic Assessment and plan: Continue home meds, has a spine stimulator (9) Chronic respiratory failure with hypoxia Current Visit: Yes Status: Chronic Assessment and plan: Continue O2 , stable at baseline with 5.5 L O2 by NC (10) COPD (chronic obstructive pulmonary disease) Current Visit: Yes Status: Chronic Assessment and plan: Not currently in exacerbation Continue home meds Qualifiers: COPD type: emphysema Emphysema type: panlobular Qualified Code(s): J43.1 - Panlobular emphysema (11) DVT prophylaxis Current Visit: Yes Status: Acute Assessment and plan: SQ heparin (12) ESRD on hemodialysis Current Visit: Yes Status: Chronic Assessment and plan: HD per renal , consulted (13) Hyperlipidemia Current Visit: Yes Status: Chronic Assessment and plan: Continue home meds Qualifiers: Hyperlipidemia type: mixed hyperlipidemia Qualified Code(s): E78.2 - Mixed hyperlipidemia (14) Morbid obesity Current Visit: Yes Status: Chronic Assessment and plan: lifestyle modification (15) Myoclonic jerking Current Visit: Yes Status: Chronic Assessment and plan: chronic (16) CARMEN (obstructive sleep apnea) Current Visit: Yes Status: Chronic Assessment and plan: CPAP at bedtime (17) PAD (peripheral artery disease) Current Visit: Yes Status: Chronic - Time Spent With Patient Total time spent is greater than 50% in coordination of care (as documented) at patient's floor/unit and/or counseling patient:
[2018-04-28] MEDS ORDERED: Ondansetron ODT 4 MG TAB.RAPDIS PO PRN (15:31)
[2018-04-28] MEDS ORDERED: Albuterol 2.5 MG/3 ML NEBULIZER IH PRN (15:31)
[2018-04-28] MEDS: tiZANidine 4 MG TABLET PO SCH ×2 (17:36→19:50)
[2018-04-28] MEDS: *HR* OxyCODONE/APAP 5/325 TABLET PO PRN (18:34)
[2018-04-28] MEDS: Pregabalin 50 MG CAPSULE PO SCH (19:49)
[2018-04-28] MEDS: Baclofen 10 MG TABLET PO SCH (19:50)
[2018-04-28] MEDS: Sennosides 8.6 MG TABLET PO SCH (19:50)
[2018-04-28] MEDS: Lactulose Oral Soln 20 GM/30 ML UDC PO SCH (19:51)
[2018-04-28] MEDS: Budesonide/Formoterol 160/4.5 1 PUFF INH IH SCH (20:43)
[2018-04-29] MEDS: *HR* OxyCODONE/APAP 5/325 TABLET PO PRN ×4 (02:28→20:39)
[2018-04-29] MEDS ORDERED: Acetaminophen 325 MG TABLET PO ONE (04:49)
--- NOTE | 2018-04-29 06:04 | Event Note ---
Date of Encounter: 04/29/18 Time of Encounter: 05:20 Notified by nurse that patient is requesting to see provider. Went to patient bedside. Patient complaining of generalized right sided pain, left arm pain, and headache. Not yet due for PRN Percocet, so one time dose of Tylenol ordered. No neurological deficits noted. Vital signs stable. Head CT ordered on admission, nursing staff states radiology just called to bring patient to CT.
[2018-04-29 07:08] LABS: Basophils # 0.4 K/mcL (0.0-0.2); Basophils % 2.5 %; Eosinophils # 0.4 K/mcL (0.0-0.6); Eosinophils % 2.5 %; Hematocrit 32.1 % (37.5-50.1); Hemoglobin 9.8 g/dL (12.9-16.9); Lymphocytes # 2.3 K/mcL (0.6-4.6); Mean Corpuscular HGB Conc 30.5 g/dL (31.6-35.5); Mean Corpuscular Hemoglobin 30.1 pg (28.0-33.3); Mean Corpuscular Volume 98.5 fL (83.0-100.0); Mean Platelet Volume 9.9 fL (9.4-12.4); Monocytes # 0.8 K/mcL (0.0-1.3); Monocytes % 5.3 %; Neutrophils # 8.9 K/mcL (1.6-8.9); Platelet Count 396 K/mcL (140-400); Red Blood Count 3.26 M/mcL (4.19-5.50); Red Cell Distribution Width 16.8 % (11.5-14.5); Segmented Neutrophils % 62.7 %
[2018-04-29 07:26] LABS: Platelet Estimate Normal (Normal)
[2018-04-29 07:30] LABS: Calcium 9.2 mg/dL (8.6-10.3); Potassium 3.2 mEq/L (3.5-5.1)
[2018-04-29 08:38] LABS: Hepatitis B Surface Antibody 0.23 mIU/mL; Hepatitis B Surface Antigen Nonreactive (Nonreactive)
[2018-04-29] MEDS ORDERED: Tiotropium 18 MCG inhalation IH SCH (09:00)
[2018-04-29] MEDS ORDERED: Albuterol 2.5 MG/3 ML NEBULIZER IH PRN (09:01)
[2018-04-29] MEDS: Baclofen 10 MG TABLET PO SCH ×3 (09:08→20:24)
[2018-04-29] MEDS: Lactulose Oral Soln 20 GM/30 ML UDC PO SCH ×3 (09:12→20:24)
[2018-04-29] MEDS: Magnesium Oxide 400 MG TABLET PO SCH (09:13)
[2018-04-29] MEDS: Furosemide 40 MG TABLET PO SCH (09:13)
[2018-04-29] MEDS: Cholecalciferol (D-3) 1,000 UNIT TABLET PO SCH (09:13)
[2018-04-29] MEDS: Aspirin Enteric Coated 81 MG Tablet PO SCH (09:13)
[2018-04-29] MEDS: tiZANidine 4 MG TABLET PO SCH ×4 (09:13→20:25)
[2018-04-29] MEDS ORDERED: *HR* Heparin 10,000 UNIT/10 ML VIAL IV PRN (10:10)
[2018-04-29] MEDS ORDERED: 0.9 % Sodium Chloride 250 ML IVC PRN (10:10)
[2018-04-29] MEDS ORDERED: 0.9 % Sodium Chloride 1,000 ML PRIME SCH (10:15)
[2018-04-29] MEDS: Budesonide/Formoterol 160/4.5 1 PUFF INH IH SCH ×3 (10:39→20:12)
[2018-04-29] MEDS ORDERED: 0.9 % Sodium Chloride 2,000 ML ONE (10:45)
--- NOTE | 2018-04-29 10:50 | Nephrology Consult Note ---
Addendum entered and electronically signed by Kash Sharp MD 04/29/18 22:29: I examined this patient and discussed the medical decision-making with YOAN Terrazas. I agree with the documented findings, disposition and treatment plan as described except to the extent set forth below. Original Note: Date of Encounter: 04/29/18 Time of Encounter: 10:43 Assessment and Plan (1) ESRD on hemodialysis Current Visit: Yes Status: Chronic Current regimen is MWF at [place]. Last HD tx was Sunday. HD planned for today. Avoid nephrotoxins and renal dose. Strict I/O (2) Dizziness Current Visit: Yes Status: Acute Per primary. (3) Syncope Current Visit: Yes Status: Acute Per primary. Qualifiers: Syncope type: unspecified Qualified Code(s): R55 - Syncope and collapse (4) Anemia Current Visit: Yes Status: Chronic Goal Hgb is 10-11. Hgb today is 9.8, stable. Qualifiers: Anemia type: due to chronic kidney disease Chronic kidney disease stage: on chronic dialysis Qualified Code(s): N18.6 - End stage renal disease; D63.1 - Anemia in chronic kidney disease; Z99.2 - Dependence on renal dialysis (5) Chronic respiratory failure with hypoxia Current Visit: Yes Status: Chronic Per primary. History of Present Illness - Reason for Consult Consult date: 04/29/18 end stage renal disease Requesting physician: Mert Camargo - Chief Complaint nausea - History of Present Illness Mr. Madrid is a 67 year old male who presented yesterday to ED for nausea and dizziness. Symtpoms started early Sunday morning. PMH: COPD, CHF,peripheral artery disease, coronary artery disease. ESRD current regimen is MWF in [place]. Last HD tx was Sunday without complication. Pt denies chest pain and shortness of breath. Still admits to feeling "dizzy and lightheaded". Denies nausea, vomiting, chills. He lives at home with significant other. Denies smoking, Etoh, or illicit drug use. Past Med Surg Social Fam HX - Past Medical History Medical history: arthritis, CHF, COPD, GERD, hyperlipidemia, hypertension, peripheral artery disease, renal disease Additional medical history: sleep apnea. Dialysis- M,W,F Psychiatric history: anxiety - Past Surgical History Surgical History: LE stent(s), LE vascular intervention, other Additional surgical history: dental - bronchoscopy x 2 - egd - right femoral stent - spine stimulator, Right Carotid - Social History Smoking Status: Former smoker Smokeless Tobacco Status: No Alcohol use: rarely Drug use: none - Family History Mother Adopted: No Family Member Ethnicity: Non- Living Status: Hx Family Cardiac Disorders: No Hx Family Respiratory Disorders: (COPD) Hx Family Cancer: Yes (ovarian cancer) Hx Family GI Disorders: No Hx Family Endocrine Disorder: No Hx Family Neuromuscular Disorders: No Hx Family Neurologic Disorders: No Hx Family HEENT Disorders: No Hx Family Autoimmune Disorders: No Medications and Allergies Allopurinol [Zyloprim 100 MG] 200 mg PO DAILY 09/28/15 [History] Budesonide/Formoterol 160/4.5 [Symbicort 160/4.5] 2 puff IH BID 09/28/15 [History] Pantoprazole Sodium [Protonix] 40 mg PO DAILY 09/28/15 [History] Albuterol Sulfate [Proair Hfa] 2 puff IH Q4H PRN 12/14/15 [History] Calcitriol 0.5 mcg PO DAILY 02/26/18 [History] Sennosides [Senna] 2 tab PO HS 02/26/18 [History] Tiotropium [place] [Spiriva Respimat] 2 puff IH DAILY 02/26/18 [History] Atorvastatin [Lipitor] 40 mg PO HS 03/14/18 [History] Cholecalciferol (D-3) [Vitamin D] 3,000 unit PO DAILY 03/14/18 [History] Ferrous Sulfate [Iron] 325 mg PO DAILY 03/14/18 [History] Magnesium Oxide [Magnesium] 400 mg PO DAILY 03/14/18 [History] Pregabalin [Lyrica] 50 mg PO HS 03/25/18 [History] Docusate Sodium [Dok] 100 mg PO BID #0 04/04/18 [Rx] Furosemide [Lasix] 20 mg PO DAILY #0 04/04/18 [Rx] Lactulose 20 gm PO BID udc 04/04/18 [Rx] Meclizine HCl [Verticalm] 12.5 mg PO BID #0 04/04/18 [Rx] Ondansetron [Zofran] 4 mg PO Q6HR PRN #0 04/04/18 [Rx] Potassium Chloride [Klor-Con 10] 10 meq PO BID #0 04/04/18 [Rx] Tizanidine HCl [Zanaflex] 2 mg PO QID #20 cap 04/04/18 [Rx] Albuterol Neb [Proventil Neb] 2.5 mg IH Q6H PRN 04/28/18 [History] Aspirin [Adult Aspirin] 81 mg PO DAILY 04/28/18 [History] Baclofen [Lioresal] 15 mg PO TID 04/28/18 [History] Metoclopramide HCl 5 mg PO BID 04/28/18 [History] Metoprolol Succinate [Toprol Xl] 50 mg PO SUTUTHSA 04/28/18 [History] Allergy/AdvReac Type Severity Reaction Status Date / Time NSAIDS (Non-Steroidal Allergy See Verified 04/28/18 11:26 Anti-Inflamma Comments Review of Systems All Systems review (narrative): The remainder of the systems are negative. Constitutional: no chills, no fatigue, no fever(s) Cardiovascular: lightheadedness, orthopnea, no chest pain, no chest pain at rest, no dyspnea, no edema, no palpitations Respiratory: no cough, no hemoptysis Gastrointestinal: nausea, no change in bowel habits, no diarrhea, no vomiting Exam - Vital Signs Vital signs: Initial Vital Signs Temp Pulse Resp BP Pulse Ox 97.8 F 68 20 118/69 93 04/28/18 11:26 04/28/18 11:26 04/28/18 11:26 04/28/18 11:26 04/28/18 11:26 Vital Signs - Last 8 Hours Temp Pulse Resp BP Pulse Ox 04/29/18 09:27 96 118/68 04/29/18 09:26 70 110/68 04/29/18 06:40 97.9 F 72 17 123/67 94 04/29/18 04:26 97.4 F L 75 18 144/62 93 04/29/18 02:52 98.5 F 74 16 126/75 Intake and Output 04/28/18 04/29/18 04/29/18 23:59 07:59 15:59 Output Total 0 / 0 Balance 0 / 0 Output: Urine 0 / 0 Other: Weight 129.6 kg Blood Glucose* 117 91 Patient Weight 04/29/18 23:59 Weight 129.6 kg - General Appearance General appearance: well-developed, well-nourished, obese EENT: ATNC, hearing intact, vision intact Neck: supple Respiratory: clear Cardiology: normal S1, normal S2 - Dialysis Access Dialysis Vascular Access: Venous Catheter (Tunneled Line, DRSG C/D/I) Gastrointestinal: normoactive bowel sounds, no tenderness, no guarding Integumentary: no rash, warm and dry Neurologic: alert and oriented x3 Psychiatric: mood/affect appropriate, cooperative Results - Lab Results 04/29/18 06:56 04/29/18 06:56 Most recent lab results Calcium 9.2 mg/dL (8.6-10.3) 04/29/18 06:56 Phosphorus 4.9 mg/dL (2.7-4.5) H 04/28/18 11:45 Magnesium 1.6 mg/dL (1.6-2.6) 04/28/18 11:45 Consult Discharge Plan - Plan [facility]errals: [facility]Primary Care Provider[facility] -
[2018-04-29] MEDS: Tiotropium 18 MCG inhalation IH SCH (10:59)
--- NOTE | 2018-04-29 11:34 | Internal Med Progress Note ---
Hospitalist Progress Note - Encounter Date of Encounter: 04/29/18 Time of Encounter: 11:34 - Subjective Interval History: Seen and examined at the bedside he is complaining of right knee and hip pain-no limited ROM noted on exam Head CT was unremarkable He is awaiting HD today he is also requesting repat USS of his Left carotid to see if it has progressed- educated on need to wait for procedure already scheduled by vascular He reports improvement in dizziness - Exam Vitals: Temp Pulse Resp BP Pulse Ox 97.9 F 96 17 118/68 94 04/29/18 06:40 04/29/18 09:27 04/29/18 06:40 04/29/18 09:27 04/29/18 06:40 Exam: VSS Gen: Not in distress, speaks full sentences, morbidly obese HEENT: Moist oral mucosa, not pale, anicteric, not cyanotic. Right carotid scar. No bruits Chest: No chest wall tenderness Resp: CTAB, no added sounds, diminished air entry at the bases, likely due to body habitus Heart: S1, S2 only, no m/g/r. Abdomen: Obese, not tender, no palpably enlarged organs Extremities: No edema Neuro: Alert, awake, oriented X3. Pupils are equal and reactive, Nystagmus, horizontal, fatigues, speech is normal , no facial paralysis, moves all extremities equally Skin: No rash Psych: Appropriate affect - Assessment and Plan (1) Dizziness Current Visit: Yes Status: Acute Assessment and Plan: Patient , poor historian , however complained of having dizziness for the past 2 days with ear fulness, no hearing loss, no tinnitus he also complained of vertigo and on evaluation states "the room is spinning" he has no neurologic deficits at this time head CT unremarkable His spouse at the bedside also stated patient was having visual hallucinations at home, seeing "bugs on the ceiling when there were none) Etiology of dizziness unknown Will not rpt ECHO, or carotids, continue tele Check orthostatics (2) Leukocytosis Current Visit: Yes Status: Chronic Assessment and Plan: Chronic, noted Infectious disease eval from last admission Afebrile, no focus of infection Consult oncology/hematology (3) Thrombocytosis Current Visit: Yes Status: Acute Assessment and Plan: consider essential thrombocytosis, heme/onc eval (4) Anemia Current Visit: Yes Status: Chronic Assessment and Plan: chronic, stable (5) CAD (coronary artery disease) Current Visit: Yes Status: Chronic Assessment and Plan: continue home meds (6) Carotid stenosis, bilateral Current Visit: Yes Status: Chronic Assessment and Plan: continue home meds No indication for CTA neck or carotids If work up for dizziness negative, consider vascular eval, per ED note, vascular was called and they do not believe patient's symptoms are related to his carotid stenosis at this time (7) CHF (congestive heart failure) Current Visit: Yes Status: Chronic Assessment and Plan: continue home meds HD per schedule (8) Chronic pain syndrome Current Visit: Yes Status: Chronic Assessment and Plan: Continue home meds, has a spine stimulator (9) Chronic respiratory failure with hypoxia Current Visit: Yes Status: Chronic Assessment and Plan: Continue O2 , stable at baseline with 5.5 L O2 by NC (10) COPD (chronic obstructive pulmonary disease) Current Visit: Yes Status: Chronic Assessment and Plan: Not currently in exacerbation Continue home meds (11) DVT prophylaxis Current Visit: Yes Status: Acute Assessment and Plan: SQ heparin (12) ESRD on hemodialysis Current Visit: Yes Status: Chronic Assessment and Plan: HD per renal , consulted (13) Hyperlipidemia Current Visit: Yes Status: Chronic Assessment and Plan: Continue home meds (14) Morbid obesity Current Visit: Yes Status: Chronic Assessment and Plan: lifestyle modification (15) Myoclonic jerking Current Visit: Yes Status: Chronic Assessment and Plan: chronic (16) CARMEN (obstructive sleep apnea) Current Visit: Yes Status: Chronic Assessment and Plan: CPAP at bedtime (17) PAD (peripheral artery disease) Current Visit: Yes Status: Chronic DVT Prophylaxis: Sq heparin - Time Spent with Patient Total time spent is greater than 50% in coordination of care (as documented) at patient's floor/unit and/or counseling patient: Plan of Care Discussed with: patient Internal Medicine: Result - Labs CBC & Chem 7: 04/29/18 06:56 04/29/18 06:56 Labs: Short CBC 04/28/18 04/29/18 Range/Units 11:45 06:56 WBC 19.3 H 14.2 H (4.3-11.1) K/mcL Hgb 10.7 L 9.8 L (12.9-16.9) g/dL Hct 34.4 L 32.1 L (37.5-50.1) % Plt Count 406 H 396 (140-400) K/mcL Neutrophils # 15.4 H 8.9 (1.6-8.9) K/mcL BMP 04/28/18 04/29/18 11:45 06:56 Sodium 138 139 Potassium 3.7 3.2 L Chloride 98 99 Carbon Dioxide 26 27 BUN 38 H 42 H Creatinine 5.08 H 4.95 H Glucose 97 97 Calcium 9.3 9.2 Cardiac Enzymes 04/28/18 Range/Units 11:45 Troponin I < 0.03 (< 0.04) ng/mL Liver Function 04/28/18 Range/Units 11:45 Total Bilirubin 0.6 (0.3-1.0) mg/dL Direct Bilirubin 0.1 (0.0-0.2) mg/dL AST 12 L (13-39) Units/L ALT 10 (7-52) Units/L Alkaline Phosphatase 65 (34-104) Units/L Albumin 3.8 (3.5-5.7) g/dL - ABG Interpretation ABG results: PT/INR, D-dimer PT 13.1 Seconds (9.4-12.1) H 04/28/18 11:45 - Impressions Impressions Chest X-Ray 04/28/18 11:46 IMPRESSION: No acute cardiopulmonary process. D/ / Fabiano Gallardo MD / Fabiano Gallardo MD Interpreting Provider: Fabiano Gallardo MD Head CT 04/28/18 15:23 IMPRESSION: No acute intracranial abnormality. D/ / Ghulam Feliz / Ghulam Feliz Interpreting Provider: Ghulam Feliz Consult Discharge Plan - Plan [facility]errals: [facility] [Primary Care Provider] - (2) Leukocytosis Qualifiers: Leukocytosis type: unspecified Qualified Code(s): D72.829 - Elevated white blood cell count, unspecified (4) Anemia Qualifiers: Anemia type: due to chronic kidney disease Chronic kidney disease stage: on chronic dialysis Qualified Code(s): N18.6 - End stage renal disease; D63.1 - Anemia in chronic kidney disease; Z99.2 - Dependence on renal dialysis (5) CAD (coronary artery disease) Qualifiers: Coronary Disease-Associated Artery/Lesion type: [place] artery [place] vs. transplanted heart: [place]lin heart Associated angina: without angina Qualified Code(s): I25.10 - Atherosclerotic heart disease of [place] coronary artery without angina pectoris (7) CHF (congestive heart failure) Qualifiers: Heart failure type: diastolic Heart failure chronicity: chronic Qualified Code(s): I50.32 - Chronic diastolic (congestive) heart failure (10) COPD (chronic obstructive pulmonary disease) Qualifiers: COPD type: emphysema Emphysema type: panlobular Qualified Code(s): J43.1 - Panlobular emphysema (13) Hyperlipidemia Qualifiers: Hyperlipidemia type: mixed hyperlipidemia Qualified Code(s): E78.2 - Mixed hyperlipidemia
--- NOTE | 2018-04-29 16:12 | Oncology Inp Consult Note ---
<Ankit Holguin - Last Filed: 04/29/18 16:43> Date of Encounter: 04/29/18 - Data of Consult Requesting Physician: Mert Camargo MD Primary Care Provider: [facility] Medications and Allergies Allopurinol [Zyloprim 100 MG] 200 mg PO DAILY 09/28/15 [History] Budesonide/Formoterol 160/4.5 [Symbicort 160/4.5] 2 puff IH BID 09/28/15 [History] Pantoprazole Sodium [Protonix] 40 mg PO DAILY 09/28/15 [History] Albuterol Sulfate [Proair Hfa] 2 puff IH Q4H PRN 12/14/15 [History] Calcitriol 0.5 mcg PO DAILY 02/26/18 [History] Sennosides [Senna] 2 tab PO HS 02/26/18 [History] Tiotropium [place] [Spiriva Respimat] 2 puff IH DAILY 02/26/18 [History] Atorvastatin [Lipitor] 40 mg PO HS 03/14/18 [History] Cholecalciferol (D-3) [Vitamin D] 3,000 unit PO DAILY 03/14/18 [History] Ferrous Sulfate [Iron] 325 mg PO DAILY 03/14/18 [History] Magnesium Oxide [Magnesium] 400 mg PO DAILY 03/14/18 [History] Pregabalin [Lyrica] 50 mg PO HS 03/25/18 [History] Docusate Sodium [Dok] 100 mg PO BID #0 04/04/18 [Rx] Furosemide [Lasix] 20 mg PO DAILY #0 04/04/18 [Rx] Lactulose 20 gm PO BID udc 04/04/18 [Rx] Meclizine HCl [Verticalm] 12.5 mg PO BID #0 04/04/18 [Rx] Ondansetron [Zofran] 4 mg PO Q6HR PRN #0 04/04/18 [Rx] Potassium Chloride [Klor-Con 10] 10 meq PO BID #0 04/04/18 [Rx] Tizanidine HCl [Zanaflex] 2 mg PO QID #20 cap 04/04/18 [Rx] Albuterol Neb [Proventil Neb] 2.5 mg IH Q6H PRN 04/28/18 [History] Aspirin [Adult Aspirin] 81 mg PO DAILY 04/28/18 [History] Baclofen [Lioresal] 15 mg PO TID 04/28/18 [History] Metoclopramide HCl 5 mg PO BID 04/28/18 [History] Metoprolol Succinate [Toprol Xl] 50 mg PO SUTUTHSA 04/28/18 [History] Allergy/AdvReac Type Severity Reaction Status Date / Time NSAIDS (Non-Steroidal Allergy See Verified 04/28/18 11:26 Anti-Inflamma Comments Consult Discharge Plan - Plan Referrals: [facility] [Primary Care Provider] - Inpatient Charges Provider: Dr. Shannan Holguin Consult - Inpatient: [id number] - Attending Attestation I examined this patient and my medical decision-making was reviewed with the Advanced Practice Nurse. I agree with the documented findings, disposition and treatment plan as described except to the extent set forth below. -Patient has a leukocytosis with basophils and nucleated RBCs seen on the differential. He however has multiple comorbodities that could be contributing to this. Will check PCR BCR-ABL, PNH FC (anemic as well), and JAK2 mutational testing, ESR, CRP, TAYLOR -Will perform anemia w/u; iron studies, vit b12 level, folate level, FOBT, PBS, reticulocyte count, LDH, haptoglobin, and coags -He has a h/o RUL opacity; will evaluate with a CT CAP w/IV contrast and time the study with his HD so that it does not affect his renal function Thanks for the consult! <Laine Batista - Last Filed: 04/30/18 08:34> Date of Encounter: 04/29/18 Time of Encounter: 15:30 Assessment and Plan (1) Abnormal CT of the chest Status: Acute Assessment and plan: CT chest 02/26/2018 revealed slowly increasing ground-glass opacity consolidation in the apical left upper lobe, measuring 5 x 1.5 cm. Patient was arranged for outpatient pulmonology appointment for repeat imaging however did not appear to attend Will discuss with nephrology to plan for CT neck/chest/abdomen/pelvis with IV contrast timed with his next upcoming dialysis (2) Leukocytosis Status: Chronic Assessment and plan: Patient has leukocytosis with basophilia and nucleated RBC's that has been present since 02/26/2018 Normocytic, normochromic anemia Platelet count is normal He was evaluated by ID on prior admission, no infectious source was identified Patient has multiple comorbidities likely contributing to state of chronic inflammation but given presence of basophilia/nucleated RBC's, we will assess for malignant source Prior imaging does not note spleen size Plan: Check blood smear, LDH, Haptoglobin, retic, FOBT, B12, folate, ferritin, iron profile, PTT, PT/INR For Leukocytosis assess bcr/abl, JAK2, PNH, TAYLOR, ESR, CRP Further recommendations pending the above Qualifiers: Leukocytosis type: unspecified Qualified Code(s): D72.829 - Elevated white blood cell count, unspecified - Data of Consult Patient: new to practice Consult date: 04/29/18 Requesting Physician: Mert Camargo MD Primary Care Provider: PCP [facility] - Consult Narrative Reason for consult: Leukocytosis History of present illness: Mr. Madrid is a 67 year old male with multiple comorbidities including end-stage renal disease on hemodialysis Sunday, status post right carotid endarterectomy recently on 04/04/2018, chronic respiratory failure on home oxygen, morbid obesity hypertension, hyperlipidemia, diabetes mellitus, CHF, COPD, PAD and chronic pain syndrome. Patient presented to [facility] on 04/28/2018 with complaints of visual hallucinations, dizziness and nausea which started 2 days ago. The patient reports sensation of feeling lightheaded 2 days ago in the morning, associated with increased myoclonic jerks. He has a hx of chronic mycoclonus, reviewed by neurology in the past at this facility. Mr. Madrid denies fevers, chills, recent sick contacts, visual changes, chest pain, SOB above baseline, changes in bowel or urination. Hematology has been consulted for further evaluation of patients leukocytosis. Past Med Surg Social Fam HX - Past Medical History Medical history: arthritis, CHF, COPD, GERD, hyperlipidemia, hypertension, peripheral artery disease, renal disease Additional medical history: sleep apnea. Dialysis- M,W,F Psychiatric history: anxiety - Past Surgical History Surgical History: LE stent(s), LE vascular intervention, other Additional surgical history: dental - bronchoscopy x 2 - egd - right femoral stent - spine stimulator, Right Carotid - Social History Smoking Status: Former smoker Smokeless Tobacco Status: No Alcohol use: rarely Drug use: none - Family History Mother Adopted: No Family Member Ethnicity: Non- Living Status: Hx Family Cardiac Disorders: No Hx Family Respiratory Disorders: (COPD) Hx Family Cancer: Yes (ovarian cancer) Hx Family GI Disorders: No Hx Family Endocrine Disorder: No Hx Family Neuromuscular Disorders: No Hx Family Neurologic Disorders: No Hx Family HEENT Disorders: No Hx Family Autoimmune Disorders: No Constitutional: Present: fatigue. Absent: anorexia, chills, fever(s), headache(s), weight loss Eyes: Absent: change in vision Nose, mouth and throat: Absent: dysphagia Cardiovascular: Absent: chest pain, palpitations Respiratory: Present: cough, dyspnea (chronic) Gastrointestinal: Present: nausea. Absent: abdominal pain, change in bowel habits, hematemesis, hematochezia, melena, vomiting Genitourinary: Absent: dysuria Musculoskeletal: Present: muscle weakness Integumentary: Absent: rash, wounds Neurological: Absent: focal weakness, frequent falls Psychiatric: Present: visual hallucinations (prior to admisson) Hematologic/Lymphatic: Absent: lymphadenopathy Allergic/Immunologic: Absent: seasonal rhinorrhea Oncology - Exam - Constitutional Provider Comments:: Patient seen and examined in dialysis unit General appearance: cooperative, morbidly obese, no acute distress, no febrile - Head Head exam: Present: atraumatic - ENT ENT exam: Present: mucous membranes moist, normal oropharynx - Respiratory Respiratory exam: Present: decreased breath sounds. Absent: respiratory distress - Cardiovascular Cardiovascular exam: Present: RRR, +S1, +S2 - GI/Abdominal GI/Abdominal exam: Present: normal bowel sounds, soft. Absent: tenderness - Extremities Exam Extremities exam: Absent: calf tenderness - Neurological Exam Neurological exam: Present: alert, oriented X3, no focal deficits, strengths equal and symetr throughout - Psychiatric Psychiatric exam: Present: normal affect, normal mood - Skin Skin exam: Present: dry, normal color, warm
--- NOTE | 2018-04-29 16:50 | Electrocardiograph Report ---
[address] [address] Test Date: 2018-04-28 Pat Name: Dereck Madrid Department: EXAM2 Room: 2A43 Gender: M V Belt Skiver: : 1950 Requested By: Johnna Saldivar Order Number: [id number] Reading MD: Minnie Bowens Measurements Intervals [place] Rate: 74 P: -3 AR: 140 QRS: 95 QRSD: 101 T: 29 QT: 406 QTc: 451 Interpretive Statements Sinus rhythm Electronically Signed On 04-29-2018 16:49:21 EST by Minnie Bowens
[2018-04-29] MEDS: Sennosides 8.6 MG TABLET PO SCH (20:25)
[2018-04-29] MEDS: Pregabalin 50 MG CAPSULE PO SCH (20:25)
[2018-04-30] MEDS: *HR* OxyCODONE/APAP 5/325 TABLET PO PRN ×3 (03:34→17:27)
[2018-04-30 04:39] LABS: Immature Reticulocyte % 31.2 % (11.0-38.0); Retculocyte # 0.11 M/mcL (0.05-0.10); Reticulocyte % 3.7 % (1.6-2.8)
[2018-04-30 04:40] LABS: INR 1.2
[2018-04-30 04:43] LABS: Activated Partial Thrombo Time 34.9 Seconds (26.0-36.0)
[2018-04-30 04:53] LABS: % Iron Saturation 10 % (20-55); C-Reactive Protein 35 mg/L (Less than 10); Iron 28 mcg/dL (65-175); Lactate Dehydrogenase 199 Units/L (140-271); Transferrin 208 mg/dL (203-362)
[2018-04-30 05:10] LABS: Ferritin 81 ng/mL (20-250)
[2018-04-30 05:16] LABS: Folate 10.1 ng/mL (3.0-16.0)
[2018-04-30 08:01] LABS: Hematocrit 31.9 % (37.5-50.1); Hemoglobin 9.7 g/dL (12.9-16.9); Mean Corpuscular HGB Conc 30.4 g/dL (31.6-35.5); Mean Corpuscular Hemoglobin 30.4 pg (28.0-33.3); Mean Platelet Volume 9.8 fL (9.4-12.4); Platelet Count 357 K/mcL (140-400); Red Blood Count 3.19 M/mcL (4.19-5.50); Red Cell Distribution Width 17.2 % (11.5-14.5)
[2018-04-30] MEDS: Cholecalciferol (D-3) 1,000 UNIT TABLET PO SCH (08:02)
[2018-04-30] MEDS: tiZANidine 4 MG TABLET PO SCH ×4 (08:02→20:45)
[2018-04-30] MEDS: Aspirin Enteric Coated 81 MG Tablet PO SCH (08:02)
[2018-04-30] MEDS: Baclofen 10 MG TABLET PO SCH ×3 (08:02→20:45)
[2018-04-30] MEDS: Magnesium Oxide 400 MG TABLET PO SCH (08:02)
[2018-04-30] MEDS: Lactulose Oral Soln 20 GM/30 ML UDC PO SCH ×3 (08:03→20:45)
[2018-04-30] MEDS: Furosemide 40 MG TABLET PO SCH (08:03)
[2018-04-30] MEDS: Metoprolol XL (24 HR) Succ 50 MG TAB.ER.24H PO SCH (08:14)
[2018-04-30 08:20] LABS: Calcium 9.4 mg/dL (8.6-10.3); Potassium 3.7 mEq/L (3.5-5.1)
[2018-04-30 08:45] LABS: Eosinophils # 0.6 K/mcL (0.0-0.6); Lymphocytes # 3.3 K/mcL (0.6-4.6); Monocytes # 0.4 K/mcL (0.0-1.3); Platelet Estimate Normal (Normal)
[2018-04-30 08:46] LABS: Anisocytosis 1+ (Not Present); Polychromasia 1+ (Not Present)
[2018-04-30] MEDS: Budesonide/Formoterol 160/4.5 1 PUFF INH IH SCH ×2 (10:01→19:50)
[2018-04-30] MEDS: Tiotropium 18 MCG inhalation IH SCH (10:01)
--- NOTE | 2018-04-30 10:19 | Nephrology Progress Note ---
Addendum entered and electronically signed by Kash Sharp MD 04/30/18 21:52: I examined this patient and discussed the medical decision-making with YOAN Terrazas. I agree with the documented findings, disposition and treatment plan as described except to the extent set forth below. On physical exam the patient did not have rales, but had coarse breath sounds. He would likely benefit from bronchodilators will continue with fluid removal as tolerated on dialysis. The patient was seen on dialysis today. Original Note: Date of Encounter: 04/30/18 Time of Encounter: 10:17 - Assessment and Plan (1) ESRD on hemodialysis Current Visit: Yes Status: Chronic Current regimen is MWF at [facility]. HD completed yesterday without complication. HD planned for tomorrow. Avoid nephrotoxins and renal dose. Strict I/O Spoke with Talia other TRANSLITERATOR for group and she will make referral outpatient for Fistula placement. (2) Dizziness Current Visit: Yes Status: Acute Per primary. (3) Syncope Current Visit: Yes Status: Acute Per primary. Qualifiers: Syncope type: unspecified Qualified Code(s): R55 - Syncope and collapse (4) Anemia Current Visit: Yes Status: Chronic Goal Hgb is 10-11. Appreciate Heme/Onc recommendations. Qualifiers: Anemia type: due to chronic kidney disease Chronic kidney disease stage: on chronic dialysis Qualified Code(s): N18.6 - End stage renal disease; D63.1 - Anemia in chronic kidney disease; Z99.2 - Dependence on renal dialysis (5) Chronic respiratory failure with hypoxia Current Visit: Yes Status: Chronic Per primary. Subjective Principal diagnosis: nausea Interval history: Pt seen and examined, resting in bed. Denies chest pain or shortness of breath. Denies nausea, vomiting, diarrhea. Objective - Vital Signs Vital signs: Vital Signs Temp Pulse Resp BP Pulse Ox 04/30/18 08:25 90 04/30/18 06:30 97.4 F L 72 20 116/80 90 04/30/18 04:25 97.8 F 69 17 125/55 94 04/29/18 23:40 98.3 F 68 17 134/61 94 04/29/18 21:25 97.7 F 98 17 151/75 95 04/29/18 20:12 18 92 04/29/18 17:12 98.2 F 74 17 103/43 92 04/29/18 17:00 97.9 F 16 145/59 04/29/18 16:48 145/59 04/29/18 15:57 133/58 04/29/18 15:50 97.9 F 14 141/69 04/29/18 12:31 97.9 F 77 14 116/57 94 04/29/18 10:58 16 94 Intake and Output 04/29/18 04/30/18 04/30/18 23:59 07:59 15:59 Intake Total 60 / 60 30 / 30 0 / 0 Output Total 129 / 129 Balance -69 / -69 30 / 30 0 / 0 Intake: Oral 60 / 60 30 / 30 0 / 0 Output: Urine 0 / 0 Total Dialysis (HD) Output 129 / 129 Other: Blood Glucose* 107 203 Hemodialysis Net Fluid Removed 0 (mL) - General Appearance General appearance: Present: well-developed, well-nourished EENT: Present: ATNC, hearing intact, vision intact Neck: Present: supple Respiratory: Present: clear Cardiology: Present: no edema, normal S1, normal S2 Dialysis Vascular Access: Venous Catheter (Tunneled Line. DRSG C/D/I) Gastrointestinal: Present: normoactive bowel sounds, no tenderness, no guarding Integumentary: Present: no rash, warm and dry Neurologic: Present: alert and oriented x3 Psychiatric: Present: mood/affect appropriate, cooperative - Lab 04/30/18 07:51 04/30/18 07:51 Most recent lab results Calcium 9.4 mg/dL (8.6-10.3) 04/30/18 07:51 Phosphorus 4.9 mg/dL (2.7-4.5) H 04/28/18 11:45 Magnesium 1.6 mg/dL (1.6-2.6) 04/28/18 11:45 Consult Discharge Plan - Plan Referrals: [facility],PCP [Primary Care Provider] -
[2018-04-30] MEDS ORDERED: Heparin 1,000 UNITS/500 mL 500 ML ONE (11:56)
[2018-04-30] MEDS ORDERED: *HR* Heparin 5,000 UNIT/ML VIAL ONE (13:02)
[2018-04-30] MEDS ORDERED: Isovue-300 50 ML VIAL IVP ONE (13:09)
[2018-04-30] MEDS ORDERED: ceFAZolin 1,000 MG in Water for inj. (sterile) 20 ML 10 ML IVP ONE (13:11)
[2018-04-30] MEDS ORDERED: 0.9 % Sodium Chloride 250 ML IVC PRN (14:28)
--- NOTE | 2018-04-30 17:30 | Oncology Inp Progress Note ---
<ChelsieAnkit - Last Filed: 04/30/18 17:58> Date of Encounter: 04/30/18 Time of Encounter: 18:00 Oncology: Obj Data - Labs CBC & Chem 7: 04/30/18 07:51 04/30/18 07:51 Consult Discharge Plan - Plan Referrals: [facility] [Primary Care Provider] - Inpatient Charges Provider: Dr. Shannan Holguin Follow up - Inpatient: [id number] - Attending Attestation I examined this patient and my medical decision-making was reviewed with the Advanced Practice Nurse. I agree with the documented findings, disposition and treatment plan as described except to the extent set forth below. -Patient has a leukocytosis with basophils and nucleated RBCs seen on the differential. He however has multiple comorbodities that could be contributing to this. BCR-ABL, PNH FC (anemic as well), and JAK2 mutational testing pending. ESR > 130, CRP 35, TAYLOR pending. -B12 1247, Folate 10.1. -Fe 28, % sat 10%, Transferrin 208, Ferritin 81; will administer Venofer 300 mg IV. -He has a h/o RUL opacity; will evaluate with a CT CAP w/IV contrast and time the study with his HD so that it does not affect his renal function <Laine Batista - Last Filed: 05/01/18 17:22> Date of Encounter: 04/30/18 (1) Abnormal CT of the chest Current Visit: Yes Status: Acute Assessment and plan: CT chest 02/26/2018 revealed slowly increasing ground-glass opacity consolidation in the apical left upper lobe, measuring 5 x 1.5 cm. Patient was arranged for outpatient pulmonology appointment for repeat imaging however did not appear to attend Discussed with Dr. Sharp with nephrology to plan for CT neck/chest/abd omen/pelvis with IV contrast timed this evening to coordinate with patients upcoming dialysis treatment tomorrow Further recommendations pending imaging results (2) Leukocytosis Current Visit: Yes Status: Chronic Assessment and plan: Patient has leukocytosis with basophilia and nucleated RBC's that has been present since 02/26/2018 Normocytic, normochromic anemia Platelet count is normal He was evaluated by ID on prior admission, no infectious source was identified Patient has multiple comorbidities likely contributing to state of chronic inflammation but given presence of basophilia/nucleated RBC's, we will assess for malignant source Significantly elevated ESR/CRP Blood smear-pending Haptoglobin-pending FOBT negative B12 and folate are replete S/P venofer for WALLACE in CKD bcr/abl, JAK2, PNH, TAYLOR-pending Plan: Plan to await blood smear results, considering BMB Qualifiers: Leukocytosis type: unspecified Qualified Code(s): D72.829 - Elevated white blood cell count, unspecified Oncology: Subj Interval history: Mr. Madrid was seen and examined in dialysis. He denies pain, nausea, vomiting, increased SOB above baseline, fevers or chills. He currently has no complaints. - Constitutional General appearance: cooperative, no acute distress, obese, no febrile - ENT ENT exam: Present: mucous membranes moist, normal oropharynx - Respiratory Respiratory exam: Present: decreased breath sounds. Absent: respiratory distress - Cardiovascular Cardiovascular exam: Present: RRR, +S1, +S2 - GI/Abdominal GI/Abdominal exam: Present: normal bowel sounds, soft. Absent: guarding, rebound, tenderness - Extremities Exam Extremities exam: Absent: calf tenderness Additional comments: chronic discoloration to BLE with chronic BLE non pitting - Neurological Exam Neurological exam: Present: alert, oriented X3, no focal deficits, strengths equal and symetr throughout - Psychiatric Psychiatric exam: Present: normal affect, normal mood - Skin Skin exam: Present: dry, intact, normal color, warm Additional comments: chronic discoloration to BLE Oncology: Obj Data - Labs CBC & Chem 7: 05/01/18 06:49 05/01/18 06:49 Inpatient Charges Provider: Dr. Shannan Holguin Follow up - Inpatient: [id number]
[2018-04-30] MEDS ORDERED: Isovue-370 500 ML INFUS..BTL IV ONE (18:10)
--- NOTE | 2018-04-30 18:42 | Internal Med Progress Note ---
Hospitalist Progress Note - Encounter Date of Encounter: 04/30/18 Time of Encounter: 11:00 - Subjective Interval History: Patient completed hemodialysis on 04/29/18 without complications we will plan to repeat hemodialysis on 05/01/18. Arrangements also currently being made for outpatient fistula placement per nephrology. Anticipate discharge on 05/01/18 after hemodialysis. - Exam Vitals: Temp Pulse Resp BP Pulse Ox 98.3 F 60 19 140/89 94 04/30/18 15:45 04/30/18 12:58 04/30/18 15:45 04/30/18 17:30 04/30/18 12:58 Exam: Gen.: Nonacute distress, alert and oriented 3 ENT: Mucosal membranes moist Respiratory: Lungs are clear to auscultation bilaterally without any wheezing rhonchi or rales Cardiovascular: Normal S1 and S2 regular rate rhythm no murmurs rubs or gallops Abdomen: Soft, nontender and nondistended with positive bowel sounds Extremities: No lower extremity edema Skin: Normal color - Assessment and Plan (1) Leukocytosis Current Visit: Yes Status: Chronic Assessment and Plan: Chronic, noted Infectious disease eval from last admission Afebrile, no focus of infection Hematology oncology following and appreciate recommendations (2) Hyperlipidemia Current Visit: Yes Status: Chronic Assessment and Plan: Continue home meds (3) COPD (chronic obstructive pulmonary disease) Current Visit: Yes Status: Chronic Assessment and Plan: Not currently in exacerbation Continue home meds (4) CARMEN (obstructive sleep apnea) Current Visit: Yes Status: Chronic Assessment and Plan: CPAP at bedtime (5) DVT prophylaxis Current Visit: Yes Status: Acute Assessment and Plan: SQ heparin (6) Morbid obesity Current Visit: Yes Status: Chronic Assessment and Plan: lifestyle modification (7) CHF (congestive heart failure) Current Visit: Yes Status: Chronic Assessment and Plan: continue home meds HD per schedule (8) Chronic pain syndrome Current Visit: Yes Status: Chronic Assessment and Plan: Continue home meds, has a spine stimulator (9) Carotid stenosis, bilateral Current Visit: Yes Status: Chronic Assessment and Plan: continue home meds No indication for CTA neck or carotids If work up for dizziness negative, consider vascular eval, per ED note, vascular was called and they do not believe patient's symptoms are related to his carotid stenosis at this time (10) Myoclonic jerking Current Visit: Yes Status: Chronic Assessment and Plan: chronic (11) Anemia Current Visit: Yes Status: Chronic Assessment and Plan: chronic, stable (12) Chronic respiratory failure with hypoxia Current Visit: Yes Status: Chronic Assessment and Plan: Continue O2 , stable at baseline with 5.5 L O2 by NC (13) ESRD on hemodialysis Current Visit: Yes Status: Chronic Assessment and Plan: HD per renal , consulted (14) CAD (coronary artery disease) Current Visit: Yes Status: Chronic Assessment and Plan: continue home meds - Time Spent with Patient Total time spent is greater than 50% in coordination of care (as documented) at patient's floor/unit and/or counseling patient: Internal Medicine: Result - Labs CBC & Chem 7: 04/30/18 07:51 04/30/18 07:51 Labs: Short CBC 04/30/18 Range/Units 07:51 WBC 18.4 H (4.3-11.1) K/mcL Hgb 9.7 L (12.9-16.9) g/dL Hct 31.9 L (37.5-50.1) % Plt Count 357 (140-400) K/mcL Neutrophils # 14.0 H (1.6-8.9) K/mcL BMP 04/30/18 07:51 Sodium 137 Potassium 3.7 Chloride 101 Carbon Dioxide 24 BUN 46 H Creatinine 4.62 H Glucose 98 Calcium 9.4 - ABG Interpretation ABG results: PT/INR, D-dimer PT 13.0 Seconds (9.4-12.1) H 04/30/18 04:08 - Impressions Impressions Insertion Tunneled Catheter 04/30/18 00:00 IMPRESSION: Successful fluoroscopic guided exchange of a tunneled dialysis catheter and fibrin sheath disruption. D/ / Edmundo Jenkins MD / Edmundo Jenkins MD Interpreting Provider: Edmundo Jenkins MD [employer], Venous 04/30/18 00:00 IMPRESSION: Successful fluoroscopic guided exchange of a tunneled dialysis catheter and fibrin sheath disruption. D/ / Edmundo Jenkins MD / Edmundo Jenkins MD Interpreting Provider: Edmundo Jenkins MD [employer] [employer], [place] 04/30/18 00:00 IMPRESSION: Successful fluoroscopic guided exchange of a tunneled dialysis catheter and fibrin sheath disruption. D/ / Edmundo Jenkins MD / Edmundo Jenkins MD Interpreting Provider: Edmundo Jenkins MD Consult Discharge Plan - Plan [facility]errals: [facility] [Primary Care Provider] - (1) Leukocytosis Qualifiers: Leukocytosis type: unspecified Qualified Code(s): D72.829 - Elevated white blood cell count, unspecified (2) Hyperlipidemia Qualifiers: Hyperlipidemia type: mixed hyperlipidemia Qualified Code(s): E78.2 - Mixed hyperlipidemia (3) COPD (chronic obstructive pulmonary disease) Qualifiers: COPD type: emphysema Emphysema type: panlobular Qualified Code(s): J43.1 - Panlobular emphysema (7) CHF (congestive heart failure) Qualifiers: Heart failure type: diastolic Heart failure chronicity: chronic Qualified Code(s): I50.32 - Chronic diastolic (congestive) heart failure (11) Anemia Qualifiers: Anemia type: due to chronic kidney disease Chronic kidney disease stage: on chronic dialysis Qualified Code(s): N18.6 - End stage renal disease; D63.1 - Anemia in chronic kidney disease; Z99.2 - Dependence on renal dialysis (14) CAD (coronary artery disease) Qualifiers: Coronary Disease-Associated Artery/Lesion type: [place] artery [place] vs. transplanted heart: [place] heart Associated angina: without angina Qualified Code(s): I25.10 - Atherosclerotic heart disease of [place] coronary artery wit hout angina pectoris
[2018-04-30] MEDS: Pregabalin 50 MG CAPSULE PO SCH (20:45)
[2018-04-30] MEDS: Sennosides 8.6 MG TABLET PO SCH (20:45)
[2018-04-30 21:54] LABS: Calcium 9.1 mg/dL (8.6-10.3); Potassium 3.6 mEq/L (3.5-5.1)
[2018-05-01] MEDS: *HR* OxyCODONE/APAP 5/325 TABLET PO PRN ×3 (03:31→19:02)
[2018-05-01 07:14] LABS: Hematocrit 32.4 % (37.5-50.1); Hemoglobin 9.9 g/dL (12.9-16.9); Mean Corpuscular HGB Conc 30.6 g/dL (31.6-35.5); Mean Corpuscular Hemoglobin 30.2 pg (28.0-33.3); Mean Corpuscular Volume 98.8 fL (83.0-100.0); Mean Platelet Volume 9.8 fL (9.4-12.4); Platelet Count 351 K/mcL (140-400); Red Blood Count 3.28 M/mcL (4.19-5.50); Red Cell Distribution Width 17.4 % (11.5-14.5)
[2018-05-01 07:31] LABS: Calcium 9.5 mg/dL (8.6-10.3)
[2018-05-01] MEDS: Budesonide/Formoterol 160/4.5 1 PUFF INH IH SCH ×2 (07:52→20:51)
[2018-05-01] MEDS: Tiotropium 18 MCG inhalation IH SCH (07:52)
[2018-05-01] MEDS: Lactulose Oral Soln 20 GM/30 ML UDC PO SCH ×2 (08:27→20:20)
[2018-05-01] MEDS: Cholecalciferol (D-3) 1,000 UNIT TABLET PO SCH (08:28)
[2018-05-01] MEDS: Baclofen 10 MG TABLET PO SCH ×3 (08:28→20:20)
[2018-05-01] MEDS: tiZANidine 4 MG TABLET PO SCH ×4 (08:29→20:26)
[2018-05-01] MEDS: Aspirin Enteric Coated 81 MG Tablet PO SCH (08:29)
[2018-05-01] MEDS: Magnesium Oxide 400 MG TABLET PO SCH (08:29)
[2018-05-01] MEDS: Furosemide 40 MG TABLET PO SCH (08:29)
[2018-05-01] MEDS ORDERED: *HR* Heparin 10,000 UNIT/10 ML VIAL IV PRN (09:46)
[2018-05-01] MEDS ORDERED: 0.9 % Sodium Chloride 250 ML IVC PRN (09:46)
--- NOTE | 2018-05-01 09:47 | Nephrology Progress Note ---
Addendum entered and electronically signed by Kash Sharp MD 05/05/18 22:29: I examined this patient and discussed the medical decision-making with YOAN Terrazas. I agree with the documented findings, disposition and treatment plan as described except to the extent set forth below. Patient was seen on dialysis 05/01/2018 Original Note: Date of Encounter: 05/01/18 Time of Encounter: 09:45 - Assessment and Plan (1) ESRD on hemodialysis Current Visit: Yes Status: Chronic Line was adjusted by IR, is now functioining, patient can go home after HD. Current regimen is MWF at [facility]. Pt did have Tunneled Line exchanged yesterday however HD nurse informs me that access pressure were high and it did not run efficiently. Post HD labs this am are actually worsened after HD yesterday, not improved. Avoid nephrotoxins and renal dose. Strict I/O (2) Dizziness Current Visit: Yes Status: Acute Per primary. (3) Syncope Current Visit: Yes Status: Acute Per primary. Qualifiers: Syncope type: unspecified Qualified Code(s): R55 - Syncope and collapse (4) Anemia Current Visit: Yes Status: Chronic Goal Hgb is 10-11. Appreciate Heme/Onc recommendations. Qualifiers: Anemia type: due to chronic kidney disease Chronic kidney disease stage: on chronic dialysis Qualified Code(s): N18.6 - End stage renal disease; D63.1 - Anemia in chronic kidney disease; Z99.2 - Dependence on renal dialysis (5) Chronic respiratory failure with hypoxia Current Visit: Yes Status: Chronic Per primary. Subjective Principal diagnosis: nausea Interval history: Pt seen and examined, resting in bed. Denies chest pain or shortness of breath. Denies nausea, vomiting, diarrhea. Admits he is still "jerking" after HD. Objective - Vital Signs Vital signs: Vital Signs Temp Pulse Resp BP Pulse Ox 05/01/18 07:54 18 93 05/01/18 07:33 98.5 F 80 20 116/72 94 05/01/18 04:16 98.4 F 69 18 132/81 95 04/30/18 23:30 97.9 F 65 18 104/70 96 04/30/18 20:10 97.8 F 93 18 108/54 97 04/30/18 19:51 16 90 04/30/18 18:55 97.3 F L 18 115/58 04/30/18 18:45 111/59 04/30/18 18:30 122/59 04/30/18 18:15 123/60 04/30/18 18:00 130/80 04/30/18 17:45 146/70 04/30/18 17:30 140/89 04/30/18 17:15 140/94 04/30/18 17:00 147/109 04/30/18 16:45 143/62 04/30/18 16:30 143/62 04/30/18 16:15 132/52 04/30/18 16:00 130/91 04/30/18 15:45 98.3 F 19 167/102 04/30/18 12:58 60 139/35 94 04/30/18 12:52 61 113/78 90 04/30/18 12:49 61 97/76 90 04/30/18 10:46 98.6 F 74 20 115/56 96 04/30/18 10:01 24 90 Intake and Output 04/30/18 05/01/18 05/01/18 23:59 07:59 15:59 Output Total 3086 / 3086 Balance -3086 / -3086 Output: Urine 0 / 0 Total Dialysis (HD) Output 3086 / 3086 Other: Stool Size Moderate Stool Consistency soft Stool Color Brown # Bowel Movements 1 Weight 129.5 kg Blood Glucose* 133 110 Hemodialysis Net Fluid Removed 2486 (mL) - General Appearance General appearance: Present: well-developed, well-nourished, obese EENT: Present: ATNC, hearing intact, vision intact Neck: Present: supple Respiratory: Present: rales Cardiology: Present: no edema, normal S1, normal S2 Dialysis Vascular Access: Venous Catheter (Tunneled Line, DRSG C/D/I) Gastrointestinal: Present: normoactive bowel sounds, no tenderness, no guarding Integumentary: Present: no rash, warm and dry Neurologic: Present: alert and oriented x3 Psychiatric: Present: mood/affect appropriate, cooperative - Lab 05/01/18 06:49 05/01/18 06:49 Most recent lab results Calcium 9.5 mg/dL (8.6-10.3) 05/01/18 06:49 Phosphorus 4.9 mg/dL (2.7-4.5) H 04/28/18 11:45 Magnesium 1.6 mg/dL (1.6-2.6) 04/28/18 11:45 Consult Discharge Plan - Plan Referrals: [facility] [Primary Care Provider] -
[2018-05-01] MEDS ORDERED: 0.9 % Sodium Chloride 1,000 ML PRIME SCH (10:00)
[2018-05-01] MEDS ORDERED: Heparin 1,000 UNITS/500 mL 500 ML ONE (13:22)
[2018-05-01] MEDS ORDERED: *HR* Heparin 5,000 UNIT/ML VIAL ONE (13:56)
--- NOTE | 2018-05-01 17:00 | Oncology Inp Progress Note ---
<ChelsieAnkit - Last Filed: 05/01/18 17:27> Date of Encounter: 05/01/18 Time of Encounter: 17:30 Oncology: Obj Data - Labs CBC & Chem 7: 05/01/18 06:49 05/01/18 06:49 Consult Discharge Plan - Plan Referrals: [facility] [Primary Care Provider] - Inpatient Charges Provider: Dr. Shannan Holguin Follow up - Inpatient: [id number] - Attending Attestation I examined this patient and my medical decision-making was reviewed with the Advanced Practice Nurse. I agree with the documented findings, disposition and treatment plan as described except to the extent set forth below. -CBC w/ diff shows leukocytosis ( 22.8), basophilia, metamyelocytes, myelocytes, and macrocytosis (98.8) -Will perform BMB tomorrow am to rule out MDS vs myeloproliferative disorder -Received IV Venofer -CT CAP Unremarkable <Laine Batista - Last Filed: 05/02/18 12:54> Date of Encounter: 05/01/18 (1) Abnormal CT of the chest Current Visit: Yes Status: Acute Assessment and plan: CT chest 02/26/2018 revealed slowly increasing ground-glass opacity consolidation in the apical left upper lobe, measuring 5 x 1.5 cm. Patient was arranged for outpatient pulmonology appointment for repeat imaging however did not appear to attend Discussed with Dr. Sharp with nephrology to plan for CT neck/chest/abd omen/pelvis with IV contrast timed with patients upcoming dialysis treatment tomorrow Reviewed CT neck/chest/abdomen/pelvis with patient at bedside, mainly unremarkable for any concern for malignancy, however, did interestingly identify a large amount of urine in the urinary bladder despite the history of end-stage renal disease (2) Leukocytosis Current Visit: Yes Status: Chronic Assessment and plan: Patient has leukocytosis with basophilia and nucleated RBC's that has been present since 02/26/2018 Mild macrocytic anemia Platelet count is normal He was evaluated by ID on prior admission, no infectious source was identified Patient has multiple comorbidities likely contributing to state of chronic inflammation but given presence of basophilia/nucleated RBC's, we will assess for malignant source Imaging does not note enlarged spleen Significant elevated ESR/CRP S/P venofer for WALLACE in CKD B12/Folate are replete FOBT negative Retic and Haptoglobin elevated Blood smear reveals:Leukocyte count is increased with absolute neutrophilia, basophilia and left shift. Hemoglobin, hematocrit and red cell count are decreased with increased RDW. Microcytes, ovalocytes, teardrop cells and rare schistocytes seen. Normocytic anemia Plan: bcr/abl, JAK2, PNH, TAYLOR--->pending Discussed option for bone marrow biopsy to rule out marrow disease such as MDS or myeloproliferative disorder, patient wishes to pursue with bone marrow biopsy and aspiration, NPO after MN Patient will have outpatient follow up arranged with Dr. Holguin to discuss BMB results At this time, oncology will otherwise plan to sign off, please feel free to consult with any other questions or concerns. Qualifiers: Leukocytosis type: unspecified Qualified Code(s): D72.829 - Elevated white blood cell count, unspecified Oncology: Subj Interval history: Mr. Madrid was seen and examined in dialysis. No acute events noted overnight. ROS is mainly unchanged. Denies fevers, chills, nightsweats, nausea, vomiting, bowel or urinary changes. - Constitutional General appearance: cooperative, no acute distress, obese, no febrile - Head Head exam: Present: atraumatic - ENT ENT exam: Present: mucous membranes moist, normal oropharynx - Respiratory Respiratory exam: Present: decreased breath sounds, CTAB. Absent: respiratory distress - Cardiovascular Cardiovascular exam: Present: RRR, +S1, +S2 - GI/Abdominal GI/Abdominal exam: Present: normal bowel sounds, soft. Absent: tenderness - Extremities Exam Extremities exam: Absent: calf tenderness Additional comments: Chronic BLE edema - Neurological Exam Neurological exam: Present: alert, oriented X3, no focal deficits, strengths equal and symetr throughout - Psychiatric Psychiatric exam: Present: normal affect, normal mood - Skin Skin exam: Present: dry, normal color, warm Oncology: Obj Data - Labs CBC & Chem 7: 05/02/18 03:32 1218 03:32 Inpatient Charges Provider: Dr. Shannan Holguin Follow up - Inpatient: [id number]
--- NOTE | 2018-05-01 18:28 | Internal Med Progress Note ---
Hospitalist Progress Note - Encounter Date of Encounter: 05/01/18 Time of Encounter: 11:00 - Subjective Interval History: Patient's post hemodialysis labs actually worse after hemodialysis today. Hematology oncology with recommendations for CT body scan on 05/02/18 for workup of leukocytosis Recommendations also for bone marrow biopsy on 05/02/18 - Exam Vitals: Temp Pulse Resp BP Pulse Ox 98.6 F 63 20 107/58 92 05/01/18 10:55 05/01/18 13:55 05/01/18 10:55 05/01/18 13:55 05/01/18 13:55 Exam: Gen.: Nonacute distress, alert and oriented 3 ENT: Mucosal membranes moist Respiratory: Lungs are clear to auscultation bilaterally without any wheezing rhonchi or rales Cardiovascular: Normal S1 and S2 regular rate rhythm no murmurs rubs or gallops Abdomen: Soft, nontender and nondistended with positive bowel sounds Extremities: No lower extremity edema Skin: Normal color - Assessment and Plan (1) Leukocytosis Current Visit: Yes Status: Chronic Assessment and Plan: Hematology oncology with recommendations for CT body scan on 05/02/18 for workup of leukocytosis Recommendations also for bone marrow biopsy on 05/02/18 (2) Hyperlipidemia Current Visit: Yes Status: Chronic Assessment and Plan: Continue home meds (3) COPD (chronic obstructive pulmonary disease) Current Visit: Yes Status: Chronic Assessment and Plan: Not currently in exacerbation Continue home meds (4) CARMEN (obstructive sleep apnea) Current Visit: Yes Status: Chronic Assessment and Plan: CPAP at bedtime (5) Morbid obesity Current Visit: Yes Status: Chronic Assessment and Plan: lifestyle modification (6) CHF (congestive heart failure) Current Visit: Yes Status: Chronic Assessment and Plan: continue home meds HD per schedule (7) Chronic pain syndrome Current Visit: Yes Status: Chronic Assessment and Plan: Continue home meds, has a spine stimulator (8) Carotid stenosis, bilateral Current Visit: Yes Status: Chronic Assessment and Plan: continue home meds No indication for CTA neck or carotids If work up for dizziness negative, consider vascular eval, per ED note, vascular was called and they do not believe patient's symptoms are related to his carotid stenosis at this time (9) Myoclonic jerking Current Visit: Yes Status: Chronic Assessment and Plan: chronic (10) Anemia Current Visit: Yes Status: Chronic Assessment and Plan: chronic, stable (11) Chronic respiratory failure with hypoxia Current Visit: Yes Status: Chronic Assessment and Plan: Continue O2 , stable at baseline with 5.5 L O2 by NC (12) ESRD on hemodialysis Current Visit: Yes Status: Chronic Assessment and Plan: HD per renal , consulted (13) CAD (coronary artery disease) Current Visit: Yes Status: Chronic Assessment and Plan: continue home meds (14) DVT prophylaxis Current Visit: Yes Status: Acute Assessment and Plan: SQ heparin - Time Spent with Patient Total time spent is greater than 50% in coordination of care (as documented) at patient's floor/unit and/or counseling patient: Internal Medicine: Result - Labs CBC & Chem 7: 05/01/18 06:49 05/01/18 06:49 Labs: Short CBC 05/01/18 Range/Units 06:49 WBC 22.8 H (4.3-11.1) K/mcL Hgb 9.9 L (12.9-16.9) g/dL Hct 32.4 L (37.5-50.1) % Plt Count 351 (140-400) K/mcL BMP 04/30/18 05/01/18 21:26 06:49 Sodium 135 L 137 Potassium 3.6 4.0 Chloride 100 101 Carbon Dioxide 26 25 BUN 28 H 32 H Creatinine 3.55 H 4.18 H Glucose 133 H 106 H Calcium 9.1 9.5 - ABG Interpretation ABG results: PT/INR, D-dimer PT 13.0 Seconds (9.4-12.1) H 04/30/18 04:08 - Impressions Impressions Abdomen/Pelvis CT 04/30/18 20:00 IMPRESSION: No acute intra-abdominal abnormality identified. Large amount of urine in the urinary bladder despite the history of end-stage renal disease. If the patient has no sensation of bladder fullness, catheterization would be suggested. No other significant abnormality identified. D/ / Jem Perez MD / Jem Perez MD Interpreting Provider: Jem Perez MD Chest CT 04/30/18 20:00 IMPRESSION: No acute abnormality identified. Extensive old granulomatous disease. Mild bullous changes and mild chronic interstitial lung disease. No significant change from the prior study. D/ / Jem Perez MD / Jem Perez MD Interpreting Provider: Jem Perez MD Soft Tissue Neck CT 04/30/18 20:00 IMPRESSION: No acute abnormality of the soft tissue structures of the neck. Recent right carotid endarterectomy. No evident postsurgical complication. Large amount of calcific plaque about the proximal left internal carotid artery with stenosis of greater than 50%. D/ / Jem Perez MD / Jem Perez MD Interpreting Provider: Jem Perez MD Insertion Tunneled Catheter 05/01/18 00:00 IMPRESSION: Successful fluoroscopic guided exchange of a tunneled dialysis catheter D/ / Sha Wilder MD / Sha Wilder MD Interpreting Provider: Sha Wilder MD Consult Discharge Plan - Plan Referrals: [facility] [Primary Care Provider] - (1) Leukocytosis Qualifiers: Leukocytosis type: unspecified Qualified Code(s): D72.829 - Elevated white blood cell count, unspecified (2) Hyperlipidemia Qualifiers: Hyperlipidemia type: mixed hyperlipidemia Qualified Code(s): E78.2 - Mixed hyperlipidemia (3) COPD (chronic obstructive pulmonary disease) Qualifiers: COPD type: emphysema Emphysema type: panlobular Qualified Code(s): J43.1 - Panlobular emphysema (6) CHF (congestive heart failure) Qualifiers: Heart failure type: diastolic Heart failure chronicity: chronic Qualified Code(s): I50.32 - Chronic diastolic (congestive) heart failure (10) Anemia Qualifiers: Anemia type: due to chronic kidney disease Chronic kidney disease stage: on chronic dialysis Qualified Code(s): N18.6 - End stage renal disease; D63.1 - Anemia in chronic kidney disease; Z99.2 - Dependence on renal dialysis (13) CAD (coronary artery disease) Qualifiers: Coronary Disease-Associated Artery/Lesion type: [place] artery [place] vs. transplanted heart: [place] heart Associated angina: without angina Qualified Code(s): I25.10 - Atherosclerotic heart disease of [place] coronary artery without angina pectoris
[2018-05-01] MEDS ORDERED: Iron Sucrose Complex 250 MG in 0.9 % Sodium Chloride 250 ML IVPB ONE (20:00)
[2018-05-01] MEDS: Pregabalin 50 MG CAPSULE PO SCH (20:20)
[2018-05-01] MEDS: Sennosides 8.6 MG TABLET PO SCH (20:21)
[2018-05-02] MEDS: *HR* OxyCODONE/APAP 5/325 TABLET PO PRN ×3 (01:37→15:38)
[2018-05-02 04:19] LABS: Hematocrit 34.7 % (37.5-50.1); Hemoglobin 10.5 g/dL (12.9-16.9); Mean Corpuscular HGB Conc 30.3 g/dL (31.6-35.5); Mean Corpuscular Hemoglobin 30.3 pg (28.0-33.3); Mean Platelet Volume 10.1 fL (9.4-12.4); Platelet Count 341 K/mcL (140-400); Red Blood Count 3.47 M/mcL (4.19-5.50); Red Cell Distribution Width 17.5 % (11.5-14.5)
[2018-05-02 04:38] LABS: Calcium 9.5 mg/dL (8.6-10.3); Potassium 4.7 mEq/L (3.5-5.1)
[2018-05-02] MEDS ORDERED: Saliva Stimulant 100ml BOTTLE PO PRN (04:39)
[2018-05-02] MEDS ORDERED: *HR* Heparin 5,000 UNIT/ML VIAL SQ SCH (06:00)
[2018-05-02] MEDS: Budesonide/Formoterol 160/4.5 1 PUFF INH IH SCH (08:02)
[2018-05-02] MEDS: Tiotropium 18 MCG inhalation IH SCH (08:03)
[2018-05-02] MEDS: Magnesium Oxide 400 MG TABLET PO SCH (09:38)
[2018-05-02] MEDS: tiZANidine 4 MG TABLET PO SCH ×3 (09:38→15:38)
[2018-05-02] MEDS: Cholecalciferol (D-3) 1,000 UNIT TABLET PO SCH (09:39)
[2018-05-02] MEDS: Aspirin Enteric Coated 81 MG Tablet PO SCH (09:39)
[2018-05-02] MEDS: Baclofen 10 MG TABLET PO SCH ×2 (09:39→15:39)
[2018-05-02] MEDS: Furosemide 40 MG TABLET PO SCH (09:39)
[2018-05-02] MEDS: Lactulose Oral Soln 20 GM/30 ML UDC PO SCH (09:40)
[2018-05-02] MEDS: Metoprolol XL (24 HR) Succ 50 MG TAB.ER.24H PO SCH (09:42)
--- NOTE | 2018-05-02 10:01 | Nephrology Progress Note ---
Addendum entered and electronically signed by Kash Sharp MD 05/02/18 22:30: I examined this patient and discussed the medical decision-making with YOAN Terrazas. I agree with the documented findings, disposition and treatment plan as described except to the extent set forth below. Original Note: Date of Encounter: 05/02/18 Time of Encounter: 10:01 - Assessment and Plan (1) ESRD on hemodialysis Current Visit: Yes Status: Chronic Current regimen is MWF at [facility]. Avoid nephrotoxins and renal dose. Strict I/O Pt may have HD today after CT with contrast. BMB scheduled for today. May go home from a renal standpoint. (2) Dizziness Current Visit: Yes Status: Acute Per primary. (3) Syncope Current Visit: Yes Status: Acute Per primary. Qualifiers: Syncope type: unspecified Qualified Code(s): R55 - Syncope and collapse (4) Anemia Current Visit: Yes Status: Chronic Goal Hgb is 10-11. Appreciate Heme/Onc recommendations. Qualifiers: Anemia type: due to chronic kidney disease Chronic kidney disease stage: on chronic dialysis Qualified Code(s): N18.6 - End stage renal disease; D63.1 - Anemia in chronic kidney disease; Z99.2 - Dependence on renal dialysis (5) Chronic respiratory failure with hypoxia Current Visit: Yes Status: Chronic Per primary. Subjective Principal diagnosis: nausea Interval history: Pt seen and examined, resting in bed. Denies chest pain or shortness of breath. Denies nausea, vomiting, diarrhea. Admits he is still "jerking" after HD. Objective - Vital Signs Vital signs: Vital Signs Temp Pulse Resp BP Pulse Ox 05/02/18 08:04 18 94 05/02/18 07:00 98.3 F 77 16 101/66 92 05/02/18 06:18 95 05/02/18 03:49 98.2 F 68 18 115/72 93 05/01/18 23:31 98.4 F 94 18 112/75 95 05/01/18 20:53 16 95 05/01/18 19:20 97.9 F 96 19 104/69 94 05/01/18 18:44 97.4 F L 20 125/75 05/01/18 17:55 114/69 05/01/18 17:40 111/50 05/01/18 17:25 112/69 05/01/18 17:10 124/84 05/01/18 16:55 106/56 05/01/18 16:40 92/49 05/01/18 16:25 125/66 05/01/18 16:10 106/49 05/01/18 15:55 105/51 05/01/18 15:40 101/51 05/01/18 15:25 112/46 05/01/18 15:10 103/51 05/01/18 14:55 125/60 05/01/18 14:40 96/46 05/01/18 14:25 97.2 F L 18 120/39 05/01/18 13:55 63 107/58 92 05/01/18 13:50 61 92/49 91 05/01/18 13:45 65 98/58 91 05/01/18 13:40 92 108/53 93 05/01/18 13:37 68 111/60 90 05/01/18 13:32 62 109/53 91 05/01/18 10:55 98.6 F 60 20 114/70 96 Intake and Output 05/01/18 05/02/18 05/02/18 23:59 07:59 15:59 Intake Total Output Total 2600 / 2600 Balance -2590 / -2590 Intake: IV Fluids Output: Urine 0 / 0 Total Dialysis (HD) Output 2600 / 2600 Other: Stool Consistency loose # Bowel Movement Diapers 1 Weight 128.1 kg Blood Glucose* 111 110 Hemodialysis Net Fluid Removed 2000 (mL) - General Appearance General appearance: Present: well-developed, well-nourished EENT: Present: ATNC, hearing intact, vision intact Neck: Present: supple Respiratory: Present: clear, rales Cardiology: Present: no edema, normal S1, normal S2 Dialysis Vascular Access: Venous Catheter (Tunneled Line, DRSG C/D/I) Gastrointestinal: Present: normoactive bowel sounds, no tenderness, no guarding Integumentary: Present: no rash, warm and dry Neurologic: Present: alert and oriented x3 Psychiatric: Present: mood/affect appropriate, cooperative - Lab 05/02/18 03:32 05/02/18 03:32 Most recent lab results Calcium 9.5 mg/dL (8.6-10.3) 05/02/18 03:32 Phosphorus 4.9 mg/dL (2.7-4.5) H 04/28/18 11:45 Magnesium 1.6 mg/dL (1.6-2.6) 04/28/18 11:45 Consult Discharge Plan - Plan Referrals: [facility] [Primary Care Provider] -
[2018-05-02] MEDS ORDERED: *HR* FentaNYL (PF) 100 MCG/2 ML VIAL IVP ONE (14:01)
[2018-05-02] MEDS ORDERED: 0.9 % Sodium Chloride 500 ML ONE (14:03)
--- NOTE | 2018-05-02 14:36 | IR Procedure Note ---
Date of procedure: 05/02/18 Consent Obtained: Written consent Timeout: Correct patient and procedure verified, Correct site verified, Time out performed, Skin prep completed Local anesthetic: Lidocaine 1% Indications: leukocytosis Procedure Performed: BMB Was there an department assistant present: No Site/Technique: Left iliac bone Results/Findings: 8cc marrow, bone core Estimated blood loss (cc): 4 Complications: None; Tolerated procedure well Post Procedure Treatment Plan: dc to floor Specimen: 8cc marrow, cortical bone core
--- NOTE | 2018-05-02 14:56 | Discharge Summary ---
Orders not resulted at time of discharge: Pending orders 04/28/18 13:06 Culture,Blood [BC] Stat 04/30/18 04:08 TAYLOR IgG MARIAN rflx IFA AM 0400 BCR-ABL1t(9;22)Diag,Rflx Quant AM 0400 JAK2 ([id number]) Mutation by PCR AM 0400 [facility] High Sens RBC and WBC Routine Protein Electrophoresis AM 0400 Serum Free Light Chain [[place] Lambda Qnt FLC w Ratio] AM 0400 05/01/18 17:50 Surgical Pathology [PTH] Routine 05/02/18 CT guided biopsy [CT] Routine CT biopsy/asp bone marrow [CT] Routine 05/03/18 04:00 Chem 7 [Basic Metabolic Panel] AM 0400 Complete Blood Count w/o Diff [HEME] AM 0400 05/04/18 04:00 Chem 7 [Basic Metabolic Panel] AM 0400 Complete Blood Count w/o Diff [HEME] AM 0400 05/05/18 04:00 Chem 7 [Basic Metabolic Panel] AM 0400 Complete Blood Count w/o Diff [HEME] AM 0400 05/06/18 04:00 Chem 7 [Basic Metabolic Panel] AM 0400 Complete Blood Count w/o Diff [HEME] AM 0400 05/07/18 04:00 Chem 7 [Basic Metabolic Panel] AM 0400 Complete Blood Count w/o Diff [HEME] AM 0400 05/08/18 04:00 Complete Blood Count w/o Diff [HEME] AM 0400 Date of Encounter: 05/02/18 Time of Encounter: 11:00 - Discharge Diagnosis (1) Leukocytosis Priority: Primary Status: Chronic Qualifiers: Leukocytosis type: unspecified Qualified Code(s): D72.829 - Elevated white blood cell count, unspecified (2) Hyperlipidemia Priority: Secondary Status: Chronic Qualifiers: Hyperlipidemia type: mixed hyperlipidemia Qualified Code(s): E78.2 - Mixed hyperlipidemia (3) COPD (chronic obstructive pulmonary disease) Priority: Secondary Status: Chronic Qualifiers: COPD type: emphysema Emphysema type: panlobular Qualified Code(s): J43.1 - Panlobular emphysema (4) CARMEN (obstructive sleep apnea) Priority: Secondary Status: Chronic (5) Morbid obesity Priority: Secondary Status: Chronic (6) CHF (congestive heart failure) Priority: Secondary Status: Chronic Qualifiers: Heart failure type: diastolic Heart failure chronicity: chronic Qualified Code(s): I50.32 - Chronic diastolic (congestive) heart failure (7) Chronic pain syndrome Priority: Secondary Status: Chronic (8) Carotid stenosis, bilateral Priority: Secondary Status: Chronic (9) Myoclonic jerking Priority: Secondary Status: Chronic (10) Anemia Priority: Secondary Status: Chronic Qualifiers: Anemia type: due to chronic kidney disease Chronic kidney disease stage: on chronic dialysis Qualified Code(s): N18.6 - End stage renal disease; D63.1 - Anemia in chronic kidney disease; Z99.2 - Dependence on renal dialysis (11) Chronic respiratory failure with hypoxia Priority: Secondary Status: Chronic (12) ESRD on hemodialysis Priority: Secondary Status: Chronic (13) CAD (coronary artery disease) Priority: Secondary Status: Chronic Qualifiers: Coronary Disease-Associated Artery/Lesion type: [place] artery [place] vs. transplanted heart: [place] heart Associated angina: without angina Qualified Code(s): I25.10 - Atherosclerotic heart disease of [place] coronary artery without angina pectoris Hospital course: Patient is a 67-year-old male with past medical history significant for end- stage renal disease on hemodialysis Sunday, status post right carotid endarterectomy, history of bilateral clinic checks, chronic respiratory failure on home oxygen, morbid obesity hypertension, hyperlipidemia, diabetes mellitus, CHF, COPD who presented due to nausea and dizziness. Patient was recently released from this facility on 04/04 s/p a right carotid endarterectomy. He will presented today with complaints of dizziness and nausea which started 2 days ago. The patient reports sensation of feeling lightheaded 2 days ago in the morning, associated with increased myoclonic jerks. He has history of chronic mycoclonus, reviewed by neurology in the past at this facility, he reports his checks had resolved after his surgery because on Sunday. He also reports a sensation of feeling the room spinning around him. His partner at the bedside reports the patient has been having visual hallucinations also. In the ER, patient was found to have leukocytosis, thrombocytosis, anemia is at baseline, chem . LFT, lactate, lipase at baseline. CXR was unremarkable. During patients hospital stay hematology oncology was consulted for workup of leukocytosis without infectious etiology. Bone marrow biopsy was performed to rule out MDS versus myeloproliferative disorder and patient will follow-up with hematology oncology as outpatient. Patient will also continue dialysis as outpatient for end-stage renal disease. - Time Spent with Patient Total time spent providing and/or coordinating discharge services: Less than 30 minutes - Discharge Medications Home Medications: Allopurinol [Zyloprim 100 MG] 200 mg PO DAILY 09/28/15 [History] Budesonide/Formoterol 160/4.5 [Symbicort 160/4.5] 2 puff IH BID 09/28/15 [History] Pantoprazole Sodium [Protonix] 40 mg PO DAILY 09/28/15 [History] Albuterol Sulfate [Proair Hfa] 2 puff IH Q4H PRN 12/14/15 [History] Calcitriol 0.5 mcg PO DAILY 02/26/18 [History] Sennosides [Senna] 2 tab PO HS 02/26/18 [History] Tiotropium [place] [Spiriva Respimat] 2 puff IH DAILY 02/26/18 [History] Atorvastatin [Lipitor] 40 mg PO HS 03/14/18 [History] Cholecalciferol (D-3) [Vitamin D] 3,000 unit PO DAILY 03/14/18 [History] Ferrous Sulfate [Iron] 325 mg PO DAILY 03/14/18 [History] Magnesium Oxide [Magnesium] 400 mg PO DAILY 03/14/18 [History] Pregabalin [Lyrica] 50 mg PO HS 03/25/18 [History] Docusate Sodium [Dok] 100 mg PO BID #0 04/04/18 [Rx] Furosemide [Lasix] 20 mg PO DAILY #0 04/04/18 [Rx] Lactulose 20 gm PO BID udc 04/04/18 [Rx] Meclizine HCl [Verticalm] 12.5 mg PO BID #0 04/04/18 [Rx] Ondansetron [Zofran] 4 mg PO Q6HR PRN #0 04/04/18 [Rx] Potassium Chloride [Klor-Con 10] 10 meq PO BID #0 04/04/18 [Rx] Tizanidine HCl [Zanaflex] 2 mg PO QID #20 cap 04/04/18 [Rx] Albuterol Neb [Proventil Neb] 2.5 mg IH Q6H PRN 04/28/18 [History] Aspirin [Adult Aspirin] 81 mg PO DAILY 04/28/18 [History] Baclofen [Lioresal] 15 mg PO TID 04/28/18 [History] Metoclopramide HCl 5 mg PO BID 04/28/18 [History] Metoprolol Succinate [Toprol Xl] 50 mg PO SUTUTHSA 04/28/18 [History] Allergies/Adverse Reactions: Allergy/AdvReac Type Severity Reaction Status Date / Time NSAIDS (Non-Steroidal Allergy See Verified 04/28/18 11:26 Anti-Inflamma Comments Date of admission: 05/01/18 19:04 [facility] care physician: [facility] Consults: 04/28/18 14:06 Consult to Nephrology [CONS] Routine Consulting Provider: [facility]/[place]RI[facility]/BENAJMIN/TERRENCE Reason for Consult: ESRD for routine HD schedule Call Completed: No 04/29/18 10:10 Consult to Dialysis [CONS] Stat 04/29/18 13:55 Consult to Oncology [CONS] Routine Consulting Provider: [facility] Reason for Consult: chronic leukocytosis Call Completed: Yes 04/29/18 17:09 Consult to Interventional Radiology [CONS] Routine Consulting Provider: Radiology Interventional Cols Reason for Consult: HD CVC exchange Call Completed: No 04/30/18 14:30 Consult to Dialysis [CONS] ONCE 05/01/18 09:39 Consult to Interventional Radiology [CONS] Routine Consulting Provider: Radiology Interventional Cols Reason for Consult: Please exchange Tunneled Line, line was not functioning properly yesterday with HD. Thanks Time Notified: 09:41 Call Completed: Yes 05/01/18 10:00 Consult to Dialysis [CONS] ONCE 05/01/18 17:49 Consult to Interventional Radiology [CONS] Routine Consulting Provider: Radiology Interventional Cols Reason for Consult: Bone marrow biopsy and aspiration. Will call in AM Call Completed: Yes - Constitutional Vitals: Temp Pulse Resp BP Pulse Ox 97.9 F 81 16 118/57 99 05/02/18 11:00 05/02/18 14:24 05/02/18 14:24 05/02/18 14:24 05/02/18 14:24 General appearance: Present: A&O X 3, morbidly obese, pleasant Exam: Gen.: Nonacute distress, alert and oriented 3 Skin: Normal color - Patient Status Disposition: Home, Self-Care Condition: Fair - Discharge Instructions Instructions: Chronic Obstructive Pulmonary Disease (DC), Anemia (GEN), End- Stage Kidney Disease (GEN) Follow Up With: [facility] [Primary Care Provider] - (Patient has a home base PCP...) Asher Barcenas MD [Partnered Physician] - 05/08/18 3:45 pm (Please follow up as schedule...) Ankit Holguin MD [Partnered Physician] - 05/23/18 9:30 am (Please follow up as schedule...)
[2018-05-02 15:34] VITALS: BP 100/67
[2018-05-03 06:06] LABS: Kappa Qnt Free Light Chains 5.58 mg/dL (0.33-1.94); Lambda Qnt Free Light Chains 3.66 mg/dL (0.57-2.63)
[2018-05-03 09:51] LABS: ANA IgG by ELISA DETECTED (None Detected)
[2018-05-03 15:24] LABS: ANA HEp-2 IgG IFA DETECTED (<1:80); Anti Nuclear Ab Pattern SPECKLED
[2018-05-03 18:29] LABS: Alpha 2 Globulin (PEP) 1.02 g/dL (0.48-1.05)
[2018-05-04 11:22] LABS: IFE Reflexed NOT DONE
[2018-05-07 08:33] LABS: BCR-ABL1 Source NOT SPECIFIED; BCR-ABL1/ABL1 p210 Quant Ratio 0.52081
[2018-05-07 14:19] LABS: BCR-ABL1 Major (p210) Result DETECTED
[2018-05-07 18:07] LABS: BCR-ABL1 Specimen Source NOT SPECIFIED
== END 2018-05-02 18:56 | disposition home or self-care (01) | DRG 802 ==
LOC: 2ANU 11:19 → EMEROOARM 11:19 → SUATTDRO 13:14 → 2ANU 14:47
PROVIDERS: ADMIT Internal Medicine; ATTEND Hospitalist

== ENCOUNTER 2018-11-21 21:31 | Observation (INO) ==
--- NOTE | 2018-11-21 21:35 | Emergency Department Note ---
Disposition Clinical Impression: Acute exacerbation of chronic obstructive airways disease, Hypoxia Dyspnea Qualifiers: Dyspnea type: shortness of breath Qualified Code(s): R06.02 - Shortness of breath Disposition: Admitted As Inpatient Condition: Good Time of Disposition: 05:38 General Adult HPI - General Stated complaint: Tommy Time Seen by Provider: 11/21/18 21:34 - Related Data Home Medications Medication Instructions Recorded Confirmed Allopurinol [Zyloprim 100 MG] 200 mg PO DAILY 09/28/15 11/22/18 Budesonide/Formoterol 160/4.5 2 puff IH BID 09/28/15 11/22/18 [Symbicort 160/4.5] Pantoprazole Sodium [Protonix] 40 mg PO DAILY 09/28/15 11/22/18 Albuterol Sulfate [Proair Hfa] 2 puff IH Q4H PRN 12/14/15 05/04/18 Calcitriol 0.5 mcg PO DAILY 02/26/18 11/22/18 Tiotropium [place] [Spiriva 2 puff IH DAILY 02/26/18 11/22/18 Respimat] Atorvastatin [Lipitor] 40 mg PO HS 03/14/18 05/04/18 Cholecalciferol (D-3) [Vitamin D] 3,000 unit PO DAILY 03/14/18 11/22/18 Ferrous Sulfate [Iron] 325 mg PO DAILY 03/14/18 11/22/18 Magnesium Oxide [Magnesium] 400 mg PO DAILY 03/14/18 11/22/18 Pregabalin [Lyrica] 50 mg PO HS 03/25/18 05/04/18 Albuterol Neb [Proventil Neb] 2.5 mg IH Q6H PRN 04/28/18 05/04/18 Aspirin [Adult Aspirin] 81 mg PO DAILY 04/28/18 05/04/18 Baclofen [Lioresal] 15 mg PO TID 04/28/18 11/22/18 Metoclopramide HCl 5 mg PO BID 04/28/18 05/04/18 Metoprolol Succinate [Toprol Xl] 50 mg PO BID 04/28/18 11/22/18 Sennosides [Ex-Lax] 15 mg PO HS 05/04/18 11/22/18 Coumadin PO DAILY 11/22/18 OxyCODONE/APAP 5/325 [Percocet 1 each PO Q6HR PRN 11/22/18 11/22/18 5/325 MG] Previous Rx's Medication Instructions Recorded Docusate Sodium [Dok] 100 mg PO BID #0 04/04/18 Furosemide [Lasix] 20 mg PO DAILY #0 04/04/18 Lactulose 20 gm PO BID udc 04/04/18 Meclizine HCl [Verticalm] 12.5 mg PO BID #0 04/04/18 Ondansetron [Zofran] 4 mg PO Q6HR PRN #0 04/04/18 Potassium Chloride [Klor-Con 10] 10 meq PO BID #0 04/04/18 Tizanidine HCl [Zanaflex] 2 mg PO QID #20 cap 04/04/18 Allergies Allergy/AdvReac Type Severity Reaction Status Date / Time NSAIDS (Non-Steroidal Allergy See Verified 04/28/18 11:26 Anti-Inflamma Comments Past Medical History - Past Medical History Medical history: Reports: arthritis, CHF, COPD, GERD, hyperlipidemia, hypertension, peripheral artery disease, renal disease Surgical history: Reports: LE stent(s), LE vascular intervention, other Psychiatric history: Reports: anxiety - Social History Smoking Status: Former smoker Smokeless Tobacco Status: No Alcohol use: Reports: rarely Drug use: Reports: none Course Vital Signs Temperature 98.2 F 11/21/18 21:40 Pulse Rate 77 11/21/18 21:40 Respiratory Rate 25 11/21/18 21:40 Blood Pressure 148/63 11/21/18 21:40 O2 Sat by Pulse Oximetry 96 11/21/18 21:40 Temperature 98.2 F 11/22/18 03:50 Pulse Rate 83 11/22/18 03:50 Respiratory Rate 18 11/22/18 03:53 Blood Pressure 137/67 11/22/18 03:50 O2 Sat by Pulse Oximetry 90 11/22/18 03:53 Oxygen Delivery Oxygen Delivery Bipap Medical Decision Making - Lab Data Result diagrams: 11/21/18 22:00 11/21/18 22:00 Lab Results 11/21/18 11/21/18 11/21/18 Range/Units 22:00 22:00 22:00 WBC 13.7 H (4.3-11.1) K/mcL RBC 3.67 L (4.19-5.50) M/mcL Hgb 11.3 L (12.9-16.9) g/dL Hct 35.2 L (37.5-50.1) % MCV 95.9 (83.0-100.0) fL MCH 30.8 (28.0-33.3) pg MCHC 32.1 (31.6-35.5) g/dL RDW 17.9 H (11.5-14.5) % Plt Count 207 (140-400) K/mcL MPV 10.5 (9.4-12.4) fL Immature Gran % 4.2 H (0-4) % Seg Neutrophils % 71.1 % Lymphocytes % 14.3 % Monocytes % 7.0 % Eosinophils % 2.2 % Basophils % 1.2 % Neutrophils # 9.8 H (1.6-8.9) K/mcL Lymphocytes # 2.0 (0.6-4.6) K/mcL Monocytes # 1.0 (0.0-1.3) K/mcL Eosinophils # 0.3 (0.0-0.6) K/mcL Basophils # 0.2 (0.0-0.2) K/mcL PT (9.4-12.1) Seconds INR Sodium 137 (136-145) mEq/L Potassium 4.5 (3.5-5.1) mEq/L Chloride 107 (98-107) mEq/L Carbon Dioxide 24 (23-29) mEq/L BUN 42 H (8-23) mg/dL Creatinine 2.38 H (0.70-1.30) mg/dL Est GFR ( Amer) 33 L (> 60) Est GFR (Non-Af Amer) 27 L (> 60) BUN/Creatinine Ratio 18 (6-26) Glucose 125 H (70-105) mg/dL Calculated Osmolality 296 (280-300) Calcium 8.7 (8.6-10.3) mg/dL Troponin I < 0.03 (< 0.04) ng/mL B-Natriuretic Peptide 349 H (Less than 100) pg/mL 11/21/18 Range/Units 22:00 WBC (4.3-11.1) K/mcL RBC (4.19-5.50) M/mcL Hgb (12.9-16.9) g/dL Hct (37.5-50.1) % MCV (83.0-100.0) fL MCH (28.0-33.3) pg MCHC (31.6-35.5) g/dL RDW (11.5-14.5) % Plt Count (140-400) K/mcL MPV (9.4-12.4) fL Immature Gran % (0-4) % Seg Neutrophils % % Lymphocytes % % Monocytes % % Eosinophils % % Basophils % % Neutrophils # (1.6-8.9) K/mcL Lymphocytes # (0.6-4.6) K/mcL Monocytes # (0.0-1.3) K/mcL Eosinophils # (0.0-0.6) K/mcL Basophils # (0.0-0.2) K/mcL PT 30.3 H (9.4-12.1) Seconds INR 2.7 Sodium (136-145) mEq/L Potassium (3.5-5.1) mEq/L Chloride (98-107) mEq/L Carbon Dioxide (23-29) mEq/L BUN (8-23) mg/dL Creatinine (0.70-1.30) mg/dL Est GFR ( Amer) (> 60) Est GFR (Non-Af Amer) (> 60) BUN/Creatinine Ratio (6-26) Glucose (70-105) mg/dL Calculated Osmolality (280-300) Calcium (8.6-10.3) mg/dL Troponin I (< 0.04) ng/mL B-Natriuretic Peptide (Less than 100) pg/mL Critical Care Time Critical Care Time: Yes Total Critical Care Time: 30 Attestation: The high probability of a clinically significant, sudden or life threatening deterioration of the [] system(s) required my full and direct attention, intervention and personal management. The aggregate critical care time was [] minutes. This time is in addition to time spent performing reported procedures but includes the following: [] Data Review and interpretation [] Patient assessment and monitoring of vital signs [] Documentation [] Medication orders and management Attestation Statement - Attestation Attestation: I reviewed the residents documentation and agree with the residents assessment and plan of care. I have personally had face to face time with the patient. (Brief History, Brief Exam, and MDM) I personally supervised and was present for the chavez/critical portions of the following procedures completed by the resident: (add procedures performed here). [id number] time provided Patient arrives as a transfer from the [facility] with dyspnea and hypoxia. He arrives on BiPAP. He was evaluated in conjunction with the resident physician Dr. Giordano. I attest to supervising resident physician's interpretation of the ECG
[2018-11-21] MEDS ORDERED: Ipratropium/Albuterol Neb 3 ML IH ONE (21:43)
[2018-11-21] MEDS ORDERED: methylPREDNISolone 125 MG/2 ML VIAL IVP ONE (21:43)
[2018-11-21 22:12] LABS: Basophils # 0.2 K/mcL (0.0-0.2); Basophils % 1.2 %; Eosinophils # 0.3 K/mcL (0.0-0.6); Eosinophils % 2.2 %; Hematocrit 35.2 % (37.5-50.1); Hemoglobin 11.3 g/dL (12.9-16.9); Immature Granulocytes % 4.2 % (0-4); Lymphocytes % 14.3 %; Mean Corpuscular HGB Conc 32.1 g/dL (31.6-35.5); Mean Corpuscular Hemoglobin 30.8 pg (28.0-33.3); Mean Corpuscular Volume 95.9 fL (83.0-100.0); Mean Platelet Volume 10.5 fL (9.4-12.4); Neutrophils # 9.8 K/mcL (1.6-8.9); Platelet Count 207 K/mcL (140-400); Red Blood Count 3.67 M/mcL (4.19-5.50); Red Cell Distribution Width 17.9 % (11.5-14.5); Segmented Neutrophils % 71.1 %; White Blood Count 13.7 K/mcL (4.3-11.1)
[2018-11-21 22:20] LABS: INR 2.7; Prothrombin Time 30.3 Seconds (9.4-12.1)
--- NOTE | 2018-11-21 22:22 | Emergency Department Note ---
Disposition Clinical Impression: Acute exacerbation of chronic obstructive airways disease, Hypoxia Dyspnea Qualifiers: Dyspnea type: shortness of breath Qualified Code(s): R06.02 - Shortness of breath Disposition: Admitted As Inpatient Condition: Good Time of Disposition: 22:40 General Adult HPI - General Chief complaint: ED Shortness of Breath/Dyspnea Stated complaint: Tommy Time Seen by Provider: 11/21/18 21:34 Source: patient, EMS Mode of arrival: EMS Limitations: no limitations Nursing Notes Reviewed: Yes Vital Signs Reviewed: Yes - History of Present Illness HPI Narrative: Patient is a 68-year-old male that since emergency Department with reports of shortness of breath and increased oxygen requirement. Patient states that he is seen at the [facility] today. Patient states that he is requiring 6 L of oxygen. Patient states that he does wear BiPAP at night and is had to start wearing it during the day. Patient states that he is doing much more short of breath and his usual baseline. Patient states that he was recently admitted for increased swelling and was diagnosed with age fibrillation started on Coumadin. Patient states that he does have a history of COPD. Patient states that over the past 3 weeks his oxygen requirements has continued to go up. Pain Scale: 0 - Related Data Home Medications Medication Instructions Recorded Confirmed Allopurinol [Zyloprim 100 MG] 200 mg PO DAILY 09/28/15 05/04/18 Budesonide/Formoterol 160/4.5 2 puff IH BID 09/28/15 05/04/18 [Symbicort 160/4.5] Pantoprazole Sodium [Protonix] 40 mg PO DAILY 09/28/15 05/04/18 Albuterol Sulfate [Proair Hfa] 2 puff IH Q4H PRN 12/14/15 05/04/18 Calcitriol 0.5 mcg PO DAILY 02/26/18 05/04/18 Tiotropium [place] [Spiriva 2 puff IH DAILY 02/26/18 05/04/18 Respimat] Atorvastatin [Lipitor] 40 mg PO HS 03/14/18 05/04/18 Cholecalciferol (D-3) [Vitamin D] 3,000 unit PO DAILY 03/14/18 05/04/18 Ferrous Sulfate [Iron] 325 mg PO DAILY 03/14/18 05/04/18 Magnesium Oxide [Magnesium] 400 mg PO DAILY 03/14/18 05/04/18 Pregabalin [Lyrica] 50 mg PO HS 03/25/18 05/04/18 Albuterol Neb [Proventil Neb] 2.5 mg IH Q6H PRN 04/28/18 05/04/18 Aspirin [Adult Aspirin] 81 mg PO DAILY 04/28/18 05/04/18 Baclofen [Lioresal] 15 mg PO TID 04/28/18 05/04/18 Metoclopramide HCl 5 mg PO BID 04/28/18 05/04/18 Metoprolol Succinate [Toprol Xl] 50 mg PO SUTUTHSA 04/28/18 05/04/18 Sennosides [Ex-Lax] 15 mg PO HS 05/04/18 05/04/18 Coumadin PO DAILY 11/22/18 Previous Rx's Medication Instructions Recorded Docusate Sodium [Dok] 100 mg PO BID #0 04/04/18 Furosemide [Lasix] 20 mg PO DAILY #0 04/04/18 Lactulose 20 gm PO BID udc 04/04/18 Meclizine HCl [Verticalm] 12.5 mg PO BID #0 04/04/18 Ondansetron [Zofran] 4 mg PO Q6HR PRN #0 04/04/18 Potassium Chloride [Klor-Con 10] 10 meq PO BID #0 04/04/18 Tizanidine HCl [Zanaflex] 2 mg PO QID #20 cap 04/04/18 Allergies Allergy/AdvReac Type Severity Reaction Status Date / Time NSAIDS (Non-Steroidal Allergy See Verified 04/28/18 11:26 Anti-Inflamma Comments All systems ED: reviewed and negative except as stated. Constitutional: Denies: fever Cardiovascular: Denies: chest pain Respiratory: Reports: dyspnea Gastrointestinal: Denies: nausea, vomiting Hematological/Lymphatic: Denies: lymphadenopathy Past Medical History - Past Medical History Medical history: Reports: arthritis, CHF, COPD, GERD, hyperlipidemia, hypertension, peripheral artery disease, renal disease Surgical history: Reports: LE stent(s), LE vascular intervention, other Psychiatric history: Reports: anxiety - Social History Smoking Status: Former smoker Smokeless Tobacco Status: No Alcohol use: Reports: rarely Drug use: Reports: none Physical Exam - General Limitations: no limitations General appearance: alert, in no apparent distress - Head Head exam: atraumatic, normocephalic - Eye Eye exam: Present: normal appearance, EOMI - Neck Neck exam: Present: normal inspection, full ROM, trachea midline - Respiratory Respiratory exam: Present: wheezes, other (Bipap mask in place ) - Cardiovascular Cardiovascular exam: Present: regular rate, normal rhythm, normal heart sounds, +S1, +S2 - Abdominal Exam Abdominal exam: Present: soft, Non-Tender, normal bowel sounds, other (bruising from heparin injections ) - Neurological Exam Neurological exam: Present: alert, oriented X3 - Psychiatric Psychiatric exam: Present: normal affect, normal mood - Skin Skin exam: Present: warm, dry, intact Course Vital Signs Temperature 98.2 F 11/21/18 21:40 Pulse Rate 77 11/21/18 21:40 Respiratory Rate 25 11/21/18 21:40 Blood Pressure 148/63 11/21/18 21:40 O2 Sat by Pulse Oximetry 96 11/21/18 21:40 Temperature 98.2 F 11/21/18 21:40 Pulse Rate 75 11/22/18 00:07 Respiratory Rate 16 11/22/18 00:07 Blood Pressure 121/54 11/22/18 00:07 O2 Sat by Pulse Oximetry 93 11/22/18 00:07 Oxygen Delivery Oxygen Delivery Bipap Medical Decision Making - MDM Narrative Medical decision making narrative: Due the patient presents emergency Department with reports shortness breath obtain basic laboratory testing, EKG and chest x-ray. We will also provide the patient with DuoNeb breathing treatments and the patient be placed on BiPAP. Patient's white blood cell count was 13.7. Patient does have evidence of chronic kidney disease and appears to be at baseline. Patient is a mildly elevated BNP. There is no peripheral edema noted on physical exam. Feel this is likely a COPD exacerbation. Patient has been tolerating BiPAP well. Chest x-ray showed bibasilar opacities likely atelectasis versus unlikely pneumonia. The patient has not had a cough and has not been febrile. Patient will be admitted to the hospital for COPD exacerbation and hypoxia. The patient has had increased requirement of oxygen as well as increased BiPAP use during the day. Patient will be admitted to the hospital for further evaluation and management. I called and spoke the admitting hospitalist . He has accepted the patient to the hospital. Patient be admitted to the hospital this time for further evaluation and management. - Medical Records Medical records reviewed: Yes I reviewed the patient's medical records. - Lab Data Lab results reviewed: Yes I reviewed the patient's lab results. Result diagrams: 11/21/18 22:00 11/21/18 22:00 Lab Results 11/21/18 11/21/18 11/21/18 Range/Units 22:00 22:00 22:00 WBC 13.7 H (4.3-11.1) K/mcL RBC 3.67 L (4.19-5.50) M/mcL Hgb 11.3 L (12.9-16.9) g/dL Hct 35.2 L (37.5-50.1) % MCV 95.9 (83.0-100.0) fL MCH 30.8 (28.0-33.3) pg MCHC 32.1 (31.6-35.5) g/dL RDW 17.9 H (11.5-14.5) % Plt Count 207 (140-400) K/mcL MPV 10.5 (9.4-12.4) fL Immature Gran % 4.2 H (0-4) % Seg Neutrophils % 71.1 % Lymphocytes % 14.3 % Monocytes % 7.0 % Eosinophils % 2.2 % Basophils % 1.2 % Neutrophils # 9.8 H (1.6-8.9) K/mcL Lymphocytes # 2.0 (0.6-4.6) K/mcL Monocytes # 1.0 (0.0-1.3) K/mcL Eosinophils # 0.3 (0.0-0.6) K/mcL Basophils # 0.2 (0.0-0.2) K/mcL PT (9.4-12.1) Seconds INR Sodium 137 (136-145) mEq/L Potassium 4.5 (3.5-5.1) mEq/L Chloride 107 (98-107) mEq/L Carbon Dioxide 24 (23-29) mEq/L BUN 42 H (8-23) mg/dL Creatinine 2.38 H (0.70-1.30) mg/dL Est GFR ( Amer) 33 L (> 60) Est GFR (Non-Af Amer) 27 L (> 60) BUN/Creatinine Ratio 18 (6-26) Glucose 125 H (70-105) mg/dL Calculated Osmolality 296 (280-300) Calcium 8.7 (8.6-10.3) mg/dL Troponin I < 0.03 (< 0.04) ng/mL B-Natriuretic Peptide 349 H (Less than 100) pg/mL 11/21/18 Range/Units 22:00 WBC (4.3-11.1) K/mcL RBC (4.19-5.50) M/mcL Hgb (12.9-16.9) g/dL Hct (37.5-50.1) % MCV (83.0-100.0) fL MCH (28.0-33.3) pg MCHC (31.6-35.5) g/dL RDW (11.5-14.5) % Plt Count (140-400) K/mcL MPV (9.4-12.4) fL Immature Gran % (0-4) % Seg Neutrophils % % Lymphocytes % % Monocytes % % Eosinophils % % Basophils % % Neutrophils # (1.6-8.9) K/mcL Lymphocytes # (0.6-4.6) K/mcL Monocytes # (0.0-1.3) K/mcL Eosinophils # (0.0-0.6) K/mcL Basophils # (0.0-0.2) K/mcL PT 30.3 H (9.4-12.1) Seconds INR 2.7 Sodium (136-145) mEq/L Potassium (3.5-5.1) mEq/L Chloride (98-107) mEq/L Carbon Dioxide (23-29) mEq/L BUN (8-23) mg/dL Creatinine (0.70-1.30) mg/dL Est GFR ( Amer) (> 60) Est GFR (Non-Af Amer) (> 60) BUN/Creatinine Ratio (6-26) Glucose (70-105) mg/dL Calculated Osmolality (280-300) Calcium (8.6-10.3) mg/dL Troponin I (< 0.04) ng/mL B-Natriuretic Peptide (Less than 100) pg/mL - Radiology Data Radiology results reviewed: Yes I reviewed the patient's radiology results. Chest X-Ray 11/21/18 21:43 IMPRESSION: Small bibasilar lung opacities are nonspecific but likely atelectasis and pleural fluid. Underlying pneumonia is felt to be less likely. D/ / 11/21/2018 22:38:02 Dm Lopez MD / [email or web address] Interpreting Provider: Dm Lopez MD - EKG Data EKG #1 EKG attestation: Yes I reviewed and interpreted this EKG. EKG results narrative: EKG shows a sinus rhythm rate of 70 beats from it, VA interval 159, QRS duration 90, QTc of 420. No evidence of STEMI on EKG. This is compared to previous EKG on 05/12/18.
[2018-11-21 22:30] LABS: BUN/Creatinine Ratio 18 (6-26); Blood Urea Nitrogen 42 mg/dL (8-23); Calcium 8.7 mg/dL (8.6-10.3); Carbon Dioxide 24 mEq/L (23-29); Chloride 107 mEq/L (98-107); Glucose 125 mg/dL (70-105); Osmolality,Calculated 296 (280-300); Potassium 4.5 mEq/L (3.5-5.1); Sodium 137 mEq/L (136-145); eGFR For African Americans 33 (> 60); eGFR For Non-African Americans 27 (> 60)
[2018-11-21 22:31] LABS: Troponin I < 0.03 ng/mL (< 0.04)
[2018-11-22] MEDS ORDERED: Naloxone 0.4 MG/ML INJ IVP PRN (02:25)
[2018-11-22] MEDS ORDERED: Albuterol 2.5 MG/3 ML NEBULIZER IH PRN (02:25)
[2018-11-22] MEDS ORDERED: Acetaminophen 325 MG TABLET PO PRN (02:25)
[2018-11-22] MEDS ORDERED: levoFLOXacin 750 MG/150 ML 750 MG/150 ML BAG IVPB SCH (03:00)
--- NOTE | 2018-11-22 03:21 | Internal Med History&Physical ---
Date of Encounter: 11/22/18 Time of Encounter: 02:10 Internal Medicine - H&P: HPI Chief complaint: SOB; cough; wheeze Admitted From: Emergency Dept Plans for Post Hospital Care: Home History of present illness: Mr. Madrid is a 68 year old male who presents to the ER tonight with complaints of shortness of breath, coughing, and wheezing. He has a pulse oximeter at home and checked his oxygen levels. He states he was running 83 to 85% and that worried him. He therefore went to the ER for evaluation. He wears oxygen 18/12. He also is supposed to wear BiPAP at night, but he has been rather noncompliant with his BiPAP and has not worn it for quite some time. He states he has been having some productive sputum with thick purulent sputum. He's had subjective fevers but no chills or night sweats. He denies any vomiting or diarrhea. Workup in ER revealed patient to have COPD flareup with an elevated white count. He was subsequently admitted to hospitalist service. Upon my assessment of the patient, he confirms and informs me of the above history. He denies any chest pain. He denies any ill contacts. He did state he has been increasing his oxygen usage at home. He has not been very compliant with his BiPAP at night. He states that when he wears it regularly, he has less shortness of breath and less flareups of COPD. Past Med Surg Social Fam HX - Past Medical History Attestation: Yes The following information was validated with the patient. Source: patient, old records reviewed Medical history: arthritis, CHF, COPD, GERD, hyperlipidemia, hypertension, peripheral artery disease, renal disease Additional medical history: sleep apnea. Dialysis- M,W,F Psychiatric history: anxiety - Past Surgical History Surgical History: LE stent(s), LE vascular intervention, other Additional surgical history: dental - bronchoscopy x 2 - egd - right femoral stent - spine stimulator, Right Carotid - Social History Smoking Status: Former smoker Smokeless Tobacco Status: No Alcohol use: rarely Drug use: none Current living situation: Home Activity Level: Independent ambulation Recent Out of Country Travel Within the Last 8 Weeks: No - Family History Mother Adopted: No Family Member Ethnicity: Non- Living Status: Hx Family Cardiac Disorders: No Hx Family Respiratory Disorders: (COPD) Hx Family Cancer: Yes (ovarian cancer) Hx Family GI Disorders: No Hx Family Endocrine Disorder: No Hx Family Neuromuscular Disorders: No Hx Family Neurologic Disorders: No Hx Family HEENT Disorders: No Hx Family Autoimmune Disorders: No Internal Medicine - H&P: Meds Allopurinol [Zyloprim 100 MG] 200 mg PO DAILY 09/28/15 [History] Budesonide/Formoterol 160/4.5 [Symbicort 160/4.5] 2 puff IH BID 09/28/15 [History] Pantoprazole Sodium [Protonix] 40 mg PO DAILY 09/28/15 [History] Albuterol Sulfate [Proair Hfa] 2 puff IH Q4H PRN 12/14/15 [History] Calcitriol 0.5 mcg PO DAILY 02/26/18 [History] Tiotropium [place] [Spiriva Respimat] 2 puff IH DAILY 02/26/18 [History] Atorvastatin [Lipitor] 40 mg PO HS 03/14/18 [History] Cholecalciferol (D-3) [Vitamin D] 3,000 unit PO DAILY 03/14/18 [History] Ferrous Sulfate [Iron] 325 mg PO DAILY 03/14/18 [History] Magnesium Oxide [Magnesium] 400 mg PO DAILY 03/14/18 [History] Pregabalin [Lyrica] 50 mg PO HS 03/25/18 [History] Docusate Sodium [Dok] 100 mg PO BID #0 04/04/18 [Rx] Furosemide [Lasix] 20 mg PO DAILY #0 04/04/18 [Rx] Lactulose 20 gm PO BID udc 04/04/18 [Rx] Meclizine HCl [Verticalm] 12.5 mg PO BID #0 04/04/18 [Rx] Ondansetron [Zofran] 4 mg PO Q6HR PRN #0 04/04/18 [Rx] Potassium Chloride [Klor-Con 10] 10 meq PO BID #0 04/04/18 [Rx] Tizanidine HCl [Zanaflex] 2 mg PO QID #20 cap 04/04/18 [Rx] Albuterol Neb [Proventil Neb] 2.5 mg IH Q6H PRN 04/28/18 [History] Aspirin [Adult Aspirin] 81 mg PO DAILY 04/28/18 [History] Baclofen [Lioresal] 15 mg PO TID 04/28/18 [History] Metoclopramide HCl 5 mg PO BID 04/28/18 [History] Metoprolol Succinate [Toprol Xl] 50 mg PO BID 04/28/18 [History] Sennosides [Ex-Lax] 15 mg PO HS 05/04/18 [History] Coumadin PO DAILY 11/22/18 [History] OxyCODONE/APAP 5/325 [Percocet 5/325 MG] 1 each PO Q6HR PRN 11/22/18 [History] Allergy/AdvReac Type Severity Reaction Status Date / Time NSAIDS (Non-Steroidal Allergy See Verified 04/28/18 11:26 Anti-Inflamma Comments - Constitutional Constitutional: fatigue, fever(s), no chills, no night sweats - EENT Eyes: no blurry vision, no change in vision Ears: no ear pain, no tinnitus Nose, mouth and throat: no nasal congestion, no sinus pressure, no sore throat - Cardiovascular Cardiovascular ROS IM: dyspnea, dyspnea on exertion, no chest pain, no edema, no orthopnea, no paroxysmal nocturnal dyspnea, no syncope - Respiratory Respiratory: cough, dyspnea, wheezing, chest congestion, excessive phlegm production, change in phlegm color, no hemoptysis, no pain with cough - Gastrointestinal Gastrointestinal: nausea, no abdominal pain, no diarrhea, no hematemesis, no hematochezia, no melena, no vomiting - Genitourinary Genitourinary ROS male: no dysuria, no flank pain, no hematuria - Musculoskeletal Musculoskeletal ROS IM: no arthralgias, no back pain - Integumentary Integumentary IM: no rash, no jaundice - Neurological Neurological ROS: no dizziness, no focal weakness, no frequent falls, no headache(s) - Psychiatric Psychiatric: no anxiety, no depression - Endocrine Endocrine IM: no polydipsia, no polyuria - Allergic/Immunologic Allergic/Immunologic: wheezing, no GI upset with certain foods - Constitutional Vitals: Temp Pulse Resp BP Pulse Ox 98.4 F 73 21 146/71 97 11/22/18 00:50 11/22/18 00:50 11/22/18 00:50 11/22/18 00:50 11/22/18 00:50 General appearance: Present: cooperative, mild distress, A&O X 3, pleasant, answers questions appropriately Exam: mildly dyspneic; no distress - Head Head exam: Present: atraumatic, normal inspection - Eye Eye exam: Present: EOMI, PERRL. Absent: scleral icterus Pupils: Present: normal accommodation - ENT ENT exam: Present: mucous membranes dry, normal exam, normal oropharynx - Neck Neck exam general surgery: Present: full ROM, supple, trachea midline. Absent: tenderness, nuchal rigidity, thyromegaly - Respiratory Respiratory exam: Present: accessory muscle use, respiratory distress (mild), rhonchi, wheezes, tachypnea. Absent: chest wall tenderness, rales - Cardiovascular Cardiovascular exam: Present: irregular rhythm, +S1, +S2, systolic murmur. Absent: diastolic murmur - GI/Abdominal GI/Abdominal exam: Present: normal bowel sounds, soft. Absent: hepatomegaly, mass, splenomegaly, tenderness - Extremities Exam Extremities exam: Present: full ROM, normal capillary refill, warm, radial puls es palpable and symmetrical. Absent: calf tenderness, joint swelling, pedal edema, tenderness - Back Exam Back exam: Present: normal inspection. Absent: CVA tenderness (L), CVA tenderness (R) - Neurological Exam Neurological exam: Present: alert, CN II-XII intact, oriented X3, no focal deficits - Psychiatric Psychiatric exam: Present: normal affect, normal mood - Skin Skin exam: Present: dry, intact, warm Internal Med - H&P Results - Labs CBC & Chem 7: 11/21/18 22:00 11/21/18 22:00 Labs: Short CBC 11/21/18 Range/Units 22:00 WBC 13.7 H (4.3-11.1) K/mcL Hgb 11.3 L (12.9-16.9) g/dL Hct 35.2 L (37.5-50.1) % Plt Count 207 (140-400) K/mcL Neutrophils # 9.8 H (1.6-8.9) K/mcL BMP 11/21/18 22:00 Sodium 137 Potassium 4.5 Chloride 107 Carbon Dioxide 24 BUN 42 H Creatinine 2.38 H Glucose 125 H Calcium 8.7 Cardiac Enzymes 11/21/18 Range/Units 22:00 Troponin I < 0.03 (< 0.04) ng/mL - EKG Data -: EKG Interpreted by Myself - EKG Data Prior EKG available for review: no EKG comments: 11/22/18 03:28 atrial fibrillation - Impressions ITS Impressions Chest X-Ray 11/21/18 21:43 IMPRESSION: Small bibasilar lung opacities are nonspecific but likely atelectasis and pleural fluid. Underlying pneumonia is felt to be less likely. D/ / 11/21/2018 22:38:02 Dm Lopez MD / earnocan Interpreting Provider: Dm Lopez MD - Diagnostic Studies Chest x-ray Status: image reviewed by me (negative) - Assessment and Plan (1) Acute and chronic respiratory failure with hypoxia Current Visit: Yes Status: Acute Assessment and plan: 1. Will order BiPap QHS and daytime PRN. 2. Oxygen as needed for support. 3. Treat underlying COPD flare with antibiotics, steroids, aerosols. (2) Acute exacerbation of chronic obstructive airways disease Current Visit: Yes Status: Acute Assessment and plan: 1. Culture sputum. 2. IV steroids, antibiotics and scheduled and PRN aerosols. 3. Monitor clinically; wean oxygen as tolerated. (3) ESRD (end stage renal disease) on dialysis Current Visit: Yes Status: Chronic Assessment and plan: 1. Consult nephrology for HD needs. (4) DVT prophylaxis Current Visit: Yes Status: Acute Assessment and plan: 1. Coumadin per pharmacy dosing.
[2018-11-22] MEDS: Ipratropium/Albuterol Neb 3 ML IH SCH ×6 (03:53→23:19)
[2018-11-22 06:07] LABS: Basophils # 0.1 K/mcL (0.0-0.2); Basophils % 1.4 %; Hemoglobin 11.1 g/dL (12.9-16.9); Immature Granulocytes % 5.3 % (0-4); Lymphocytes # 0.3 K/mcL (0.6-4.6); Lymphocytes % 3.5 %; Mean Corpuscular HGB Conc 31.7 g/dL (31.6-35.5); Mean Corpuscular Hemoglobin 30.5 pg (28.0-33.3); Mean Corpuscular Volume 96.2 fL (83.0-100.0); Mean Platelet Volume 10.5 fL (9.4-12.4); Monocytes % 0.5 %; Neutrophils # 7.1 K/mcL (1.6-8.9); Platelet Count 219 K/mcL (140-400); Red Blood Count 3.64 M/mcL (4.19-5.50); Red Cell Distribution Width 17.7 % (11.5-14.5); Segmented Neutrophils % 89.3 %; White Blood Count 7.9 K/mcL (4.3-11.1)
[2018-11-22 06:14] LABS: INR 2.5
[2018-11-22 06:17] LABS: Activated Partial Thrombo Time 43.7 Seconds (26.0-36.0)
[2018-11-22 06:28] LABS: Albumin 3.7 g/dL (3.5-5.7); Albumin/Globulin Ratio 1.4 (1.1-2.2); Anisocytosis 1+ (Not Present); Bilirubin,Total 0.7 mg/dL (0.3-1.0); Calcium 8.8 mg/dL (8.6-10.3); Globulin 2.7 g/dL (2.4-3.5); Magnesium 1.9 mg/dL (1.6-2.6); Platelet Estimate Normal (Normal); Potassium 4.8 mEq/L (3.5-5.1); Total Protein 6.4 g/dL (6.4-8.9)
[2018-11-22] MEDS ORDERED: Ipratropium Neb 0.5 MG NEBULIZER IH PRN (07:45)
[2018-11-22] MEDS: Budesonide/Formoterol 160/4.5 1 PUFF INH IH SCH ×2 (07:49→19:48)
--- NOTE | 2018-11-22 07:49 | Event Note ---
Date of Encounter: 11/22/18 Time of Encounter: 09:15 Mr Madrid has pmhx HFpEF, COPD on 6L at home, ESRD MWF, HTN, pAfib on Eliquis, PAD s/p PCI and CEA. He presented with sob, cough and sputum change as well as low oxygen saturations at home. He is being observed for cOPDE awake, peasant, sob greatly improved this morning, wheezing improved, + cough with yellow sputum. + sob with exertion. no cp, pressure, palpitations or presyncope. He is feeling closer to his baseline. He did not comply with bipap last night but educated on benefit and will use with naps today and overnight tonight. gen- alert, awake,appears stated age, obese cv- reg rate and rhythm, normal s1,s2, no murmurs appreciated, no pitting le e nayely lungs- ctabl, no wheezing, rhonchi or crackles, normal resp effort on o2 nc abd- soft, non tender, non distended, + bs neuro- AAOx3, CN grossly intact Acute On Chronic Resp failure- resolved COPDE- reduce IV steroids, transition to oral in am, cont levquin, inhalers, nebs, encourage compliance with HS and prn naps bipap ESRD on HD MWF- nephro following pAfib on AC, currently NSR- cont toprol XL and warfarin dosing as per pharm, INR at goal vte ppx warfarin
[2018-11-22] MEDS ORDERED: methylPREDNISolone 125 MG/2 ML VIAL IVP SCH (08:00)
[2018-11-22 08:33] LABS: Hepatitis B Surface Antibody < 3.10 mIU/mL
[2018-11-22 08:46] LABS: Hepatitis B Surface Antigen Nonreactive (Nonreactive)
[2018-11-22] MEDS: Cholecalciferol (D-3) 1,000 UNIT TABLET PO SCH (08:52)
[2018-11-22] MEDS: Baclofen 10 MG TABLET PO SCH ×3 (08:52→22:18)
[2018-11-22] MEDS: Magnesium Oxide 400 MG TABLET PO SCH (08:52)
[2018-11-22] MEDS: Metoprolol XL (24 HR) Succ 50 MG TAB.ER.24H PO SCH ×2 (08:52→22:18)
[2018-11-22] MEDS: MethylPREDNISolone 40 MG/ML VIAL IVP SCH ×2 (09:01→18:00)
[2018-11-22] MEDS ORDERED: Tiotropium 18 MCG inhalation IH SCH (10:00)
--- NOTE | 2018-11-22 12:54 | Nephrology Consult Note ---
Date of Encounter: 11/22/18 Time of Encounter: 09:50 Assessment and Plan (1) Chronic kidney disease, stage IV (severe) Current Visit: No Status: Chronic He has chronic kidney disease stage IIIb-IV, and more recently he appears to have been in stage IV. He was recently hospitalized at the [facility] in [place], [place], and was placed on torsemide instead of furosemide, which better controlled his peripheral edema, he reported (the [facility] discharge summary is not immediately available to me). This may affect his serum creatinine, and potentially could have induced a slightly elevated serum creatinine/LÁZARO compared to baseline. However, since his lower extremity edema is now significantly improved, and if his serum creatinine trends better during this hospitalization, then I would recommend continuing it. As always, I recommend following a renal protective strategy including strict I's and O's, daily weights, avoidance of nephrotoxic agents, renal diet, and etc. Thank you for consulting the [facility]; and, I will follow with you. (2) LÁZARO (acute kidney injury) Current Visit: No Status: Acute See above (3) Peripheral edema Current Visit: Yes Status: Acute See above (4) BPH w urinary obs/LUTS Current Visit: Yes Status: Chronic He takes Flomax routinely, he said, and I recommend continuing. History of Present Illness - Reason for Consult Consult date: 11/22/18 Acute Kidney Injury, Chronic Kidney Disease Requesting physician: Ramesh Rivera - Chief Complaint LÁZARO on CKD - History of Present Illness The patient is a very pleasant male with a past medical history of chronic kidney disease stage IV, previous acute renal failure on temporary dialysis, BPH and et al who presented overnight and nephrology was consulted. He has not been on chronic dialysis, he affirmed, and I have previously taking care of him. I see that he has not followed up with me in my outpatient clinic for quite some time, but when I last saw him, I had recommended he have the permacath removed as he had been taken off dialysis. He affirmed that the pe rmacath was removed as an outpatient. Recently he said he was hospitalized at the [facility] in [place], [place], and had peripheral edema. He said his medications were adjusted and he is now on torsemide, and his lower extremity edema is significantly better. He did not affirm active nausea, vomiting, diarrhea, diminished appetite, or other uremic complaints. He affirmed that he does not take NSAIDs. Past Med Surg Social Fam HX - Past Medical History Medical history: arthritis, CHF, COPD, GERD, hyperlipidemia, hypertension, peripheral artery disease, renal disease Additional medical history: sleep apnea. Dialysis- M,W,F Psychiatric history: anxiety - Past Surgical History Surgical History: LE stent(s), LE vascular intervention, other Additional surgical history: dental - bronchoscopy x 2 - egd - right femoral stent - spine stimulator, Right Carotid - Social History Smoking Status: Former smoker Smokeless Tobacco Status: No Alcohol use: rarely Drug use: none - Family History Mother Adopted: No Family Member Ethnicity: Non- Living Status: Hx Family Cardiac Disorders: No Hx Family Respiratory Disorders: (COPD) Hx Family Cancer: Yes (ovarian cancer) Hx Family GI Disorders: No Hx Family Endocrine Disorder: No Hx Family Neuromuscular Disorders: No Hx Family Neurologic Disorders: No Hx Family HEENT Disorders: No Hx Family Autoimmune Disorders: No Medications and Allergies Budesonide/Formoterol 160/4.5 [Symbicort 160/4.5] 2 puff IH BID 09/28/15 [History] Pantoprazole Sodium [Protonix] 40 mg PO DAILY 09/28/15 [History] Calcitriol 0.5 mcg PO DAILY 02/26/18 [History] Tiotropium [place] [Spiriva Respimat] 2 puff IH DAILY@1200 02/26/18 [History] Cholecalciferol (D-3) [Vitamin D] 3,000 unit PO DAILY 03/14/18 [History] Magnesium Oxide [Magnesium] 400 mg PO DAILY 03/14/18 [History] Ondansetron [Zofran] 4 mg PO Q6HR PRN #0 04/04/18 [Rx] Baclofen [Lioresal] 15 mg PO TID 04/28/18 [History] OxyCODONE/APAP 5/325 [Percocet 5/325 MG] 1 tab PO Q6HR PRN 11/22/18 [History] Allopurinol [Zyloprim 100 MG] 200 mg PO DAILY 11/23/18 [History] Atorvastatin Calcium [Lipitor] 40 mg PO DAILY 11/23/18 [History] Cetirizine HCl [24Hour Allergy] 10 mg PO DAILY PRN 11/23/18 [History] Digoxin [Lanoxin] 0.25 mg PO DAILY 11/23/18 [History] Diltiazem [Cardizem] 30 mg PO Q6H PRN 11/23/18 [History] Docusate Sodium [Dok] 300 mg PO HS 11/23/18 [History] Ferrous Gluconate 324 mg PO BID 11/23/18 [History] Fluticasone Propionate Nasal [Flonase] 2 spray NS DAILY 11/23/18 [History] Guaifenesin 400 mg PO QID PRN 11/23/18 [History] Levalbuterol Neb [Xopenex Neb] 3 ml IH Q4H PRN 11/23/18 [History] Levalbuterol Neb [Xopenex Neb] 3 ml IH TID PRN 11/23/18 [History] Levalbuterol [Xopenex INH] 2 puff IH Q4H PRN 11/23/18 [History] Lidocaine HCl [Pain Relief] 1 appl TP 5-6XD PRN 11/23/18 [History] Meclizine [Antivert] 25 mg PO TID PRN 11/23/18 [History] Metoprolol [Lopressor] 25 mg PO BID 11/23/18 [History] Miconazole Nitrate [Aloe [place]] 1 appl TP DAILY PRN 11/23/18 [History] Sennosides [Laxative] 50 mg PO HS 11/23/18 [History] Sodium Chloride [[place]] 2 spray NS QID PRN 11/23/18 [History] Tamsulosin HCl [Flomax] 0.4 mg PO BID 11/23/18 [History] Torsemide [Demadex] 20 mg PO BID 11/23/18 [History] Warfarin [Coumadin] 2.5 mg PO TU 11/23/18 [History] Warfarin [Coumadin] 5 mg PO SUMOWETHFRSA 11/23/18 [History] levoFLOXacin [Levaquin] 750 mg PO DAILY #3 tablet 11/23/18 [Rx] predniSONE [PredniSONE] 40 mg PO DAILY #3 tablet 11/23/18 [Rx] Allergy/AdvReac Type Severity Reaction Status Date / Time NSAIDS (Non-Steroidal Allergy See Verified 11/23/18 10:32 Anti-Inflamma Comments Review of Systems All Systems: reviewed and no additional remarkable complaints except as stated Exam - Vital Signs Vital signs: Initial Vital Signs Temp Pulse Resp BP Pulse Ox 98.2 F 77 25 148/63 96 11/21/18 21:40 11/21/18 21:40 11/21/18 21:40 11/21/18 21:40 11/21/18 21:40 Vital Signs - Last 8 Hours Temp Pulse Resp BP Pulse Ox 11/22/18 11:15 18 90 11/22/18 11:14 98.1 F 75 19 189/74 90 11/22/18 09:14 90 11/22/18 08:16 98.2 F 81 20 175/70 11/22/18 07:55 16 88 Intake and Output 11/21/18 11/22/18 11/22/18 23:59 07:59 15:59 Output Total 500 / 500 Balance -500 / -500 Output: Urine 500 / 500 Other: Weight 131.224 kg 132.4 kg Patient Weight 11/22/18 23:59 Weight 132.4 kg - General Appearance General appearance: well-developed, well-nourished, appears started age, obese EENT: ATNC, PERRL, mucous membranes moist Neck: no JVD, supple Respiratory: clear Cardiology: no edema, regular rate, regular rhythm, normal S2 Gastrointestinal: normoactive bowel sounds, no tenderness, no guarding, obese Integumentary: warm and dry Neurologic: no focal deficit, no asterixis, alert and oriented x3 Musculoskeletal: no deformities, no erythema, no cyanosis Psychiatric: mood/affect appropriate, cooperative Results - Lab Results 11/22/18 05:23 11/23/18 08:01 Most recent lab results 11/22/18 05:23 Calcium 8.8 Magnesium 1.9 Consult Discharge Plan - Plan Instructions: Prednisone (By mouth), Levofloxacin (By mouth), Chronic Obstructive Pulmonary Disease (DC) Additional Instructions: Your prescriptions for antibiotic and steroid have been sent to your [facility] and 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 Your antibiotic CAN effect your INR level. You need your INR checked on Sunday. Contact PCP to arrange first thing Sunday morning. Continue your home Warfarin dosing and receive further instruction by your PCP on Sunday Follow up with Dr Patel and Dr Barcenas as discussed Referrals: Lloyd Patel DO [Partnered Physician] - [facility]Primary Care Provider[facility] - Asher Barcenas MD [Partnered Physician] - (pt reports he missed follow up appt, referral for new appt to be scheduled) Prescriptions: levoFLOXacin [Levaquin] 750 mg PO DAILY #3 tablet predniSONE [PredniSONE] 40 mg PO DAILY #3 tablet
[2018-11-22] MEDS: *HR* OxyCODONE/APAP 5/325 TABLET PO PRN ×2 (15:02→22:21)
[2018-11-22] MEDS ORDERED: Warfarin perPT PO PRN (18:00)
[2018-11-22] MEDS ORDERED: *HR* Warfarin 3 MG TABLET PO ONE (18:00)
[2018-11-22] MEDS ORDERED: *HR* Warfarin 5 MG TABLET PO ONE (18:00)
[2018-11-22] MEDS ORDERED: Sennosides 8.6 MG TABLET PO SCH (21:00)
[2018-11-23 02:36] LABS: Bilirubin,Urine Negative (Negative); Blood,Urine Negative (Negative); Clarity,Urine Clear (Clear); Glucose,Urine (UA) Normal (Normal); Ketones,Urine Negative (Negative); Leukocyte Esterase,Urine Negative (Negative); Nitrite,Urine Negative (Negative); Protein,Urine 30 mg/dL (Neg-Trace); Specific Gravity,Urine 1.015 (1.010-1.025); Urobilinogen,Urine Normal (Normal)
[2018-11-23 02:37] LABS: Color,Urine Yellow (Yellow)
[2018-11-23 02:38] LABS: Bacteria,Urine None Seen per hpf (None-Few); Hyaline Casts,Urine None Seen per lpf (None-Few); RBC,Urine 0-3 per hpf (0-3); Squamous Epithelial Cell,Urine Few per lpf (None-Few); WBC,Urine 0-3 per hpf (0-3)
[2018-11-23] MEDS: Ipratropium/Albuterol Neb 3 ML IH SCH ×3 (04:19→11:05)
--- NOTE | 2018-11-23 05:35 | Electrocardiograph Report ---
[facility] Test Date: 2018-11-21 Pat Name: Dereck Madrid Department: EXAM2 Room: 2A Gender: M Educational Consultant: : [id number] Requested By: Stanislav Giordano Order Number: [id number] Reading MD: Blake Rudd Measurements Intervals [place] Rate: 70 P: 58 MO: 159 QRS: 106 QRSD: 90 T: 7 QT: 389 QTc: 420 Interpretive Statements Sinus rhythm Right axis deviation Electronically Signed On 11-23-2018 5:33:56 EDT by Blake Rudd
[2018-11-23] MEDS: MethylPREDNISolone 40 MG/ML VIAL IVP SCH (06:25)
[2018-11-23 07:01] VITALS: BP 170/67
[2018-11-23 07:30] LABS: INR 1.8; Prothrombin Time 20.7 Seconds (9.4-12.1)
[2018-11-23] MEDS: Budesonide/Formoterol 160/4.5 1 PUFF INH IH SCH (07:30)
[2018-11-23 07:37] LABS: Albumin 3.7 g/dL (3.5-5.7); Phosphorous 3.7 mg/dL (2.7-4.5)
[2018-11-23 07:39] LABS: Calcium 9.4 mg/dL (8.6-10.3); Potassium 5.3 mEq/L (3.5-5.1)
--- NOTE | 2018-11-23 07:43 | Internal Med Progress Note ---
Hospitalist Progress Note - Encounter Date of Encounter: 11/23/18 - Exam Vitals: Temp Pulse Resp BP Pulse Ox 97.9 F 69 18 170/67 91 11/23/18 07:00 11/23/18 07:00 11/23/18 07:33 11/23/18 07:00 11/23/18 07:33 - Assessment and Plan (1) Acute and chronic respiratory failure with hypoxia Current Visit: Yes Status: Acute (2) Acute exacerbation of chronic obstructive airways disease Current Visit: Yes Status: Acute (3) ESRD (end stage renal disease) on dialysis Current Visit: Yes Status: Chronic (4) DVT prophylaxis Current Visit: Yes Status: Acute - Time Spent with Patient Total time spent is greater than 50% in coordination of care (as documented) at patient's floor/unit and/or counseling patient: Internal Medicine: Result - Labs CBC & Chem 7: 11/22/18 05:23 11/23/18 06:07 Labs: BMP 11/23/18 06:07 Sodium 141 Potassium 5.3 H Chloride 103 Carbon Dioxide 26 BUN 58 H Creatinine 2.21 H Glucose 123 H Calcium 9.4 Liver Function 11/23/18 Range/Units 06:07 Albumin 3.7 (3.5-5.7) g/dL Urine 11/23/18 Range/Units 02:26 Urine Color Yellow (Yellow) Urine Clarity Clear (Clear) Urine pH 6.0 (5.0-8.0) pH Units Ur Specific [place] 1.015 (1.010-1.025) Urine Protein 30 H (Neg-Trace) mg/dL Urine Glucose (UA) Normal (Normal) mg/dL - ABG Interpretation ABG results: PT/INR, D-dimer PT 20.7 Seconds (9.4-12.1) H 11/23/18 06:07 Consult Discharge Plan - Plan Referrals: [facility] [Primary Care Provider] - Asher Barcenas MD [Partnered Physician] - (pt reports he missed follow up appt, referral for new appt to be scheduled)
[2018-11-23] MEDS: Baclofen 10 MG TABLET PO SCH (08:15)
[2018-11-23] MEDS: Cholecalciferol (D-3) 1,000 UNIT TABLET PO SCH (08:15)
[2018-11-23] MEDS: Metoprolol XL (24 HR) Succ 50 MG TAB.ER.24H PO SCH (08:15)
[2018-11-23] MEDS: Magnesium Oxide 400 MG TABLET PO SCH (08:16)
[2018-11-23] MEDS: *HR* OxyCODONE/APAP 5/325 TABLET PO PRN (08:49)
[2018-11-23] MEDS ORDERED: levoFLOXacin 750 MG/150 ML 750 MG/150 ML BAG IVPB SCH (09:00)
[2018-11-23] MEDS ORDERED: predniSONE 20 MG TABLET PO SCH (09:00)
--- NOTE | 2018-11-23 10:13 | Nephrology Progress Note ---
Date of Encounter: 11/23/18 Time of Encounter: 08:35 - Assessment and Plan (1) Chronic kidney disease, stage IV (severe) Current Visit: No Status: Chronic He is nearing his baseline of CKD. He has not been on dialysis routinely, but historically at one point had short term dialysis in the past. I recommend continuing to follow a renal protective strategy as able. Doing well from a Nephrology perspective, and I recommend he re-establish with outpt Nephrology, and I would be happy to see him again in my clinic (he had cancelled several appt's and was lost to follow up). He voiced that he hopes to follow-up with me in my clinic again. I will ask my team to [facility] and [facility]. (2) LÁZARO (acute kidney injury) Current Visit: No Status: Acute SCr is trending better: cont the loop diuretic. (3) BPH w urinary obs/LUTS Current Visit: Yes Status: Chronic He takes Flomax routinely, he said, and I recommend continuing. (4) Hyperkalemia Current Visit: No Status: Acute Mild and repeat testing today showed mild improvement. I counseled him to follow/consume only a strict Renal Diet of low K+ and low Phos. Subjective Principal diagnosis: CKD Interval history: The patient reported feeling relatively well today when he was seen and examined earlier this morning. He did not affirm active nausea, vomiting, or diarrhea. He voiced that he hopes to follow-up with me in my clinic again. I will ask my team to help contact [facility] and [facility] an [facility] follow-[facility] appointment. Objective - Vital Signs Vital signs: Vital Signs Temp Pulse Resp BP Pulse Ox 11/23/18 08:31 97 11/23/18 07:33 18 91 11/23/18 07:00 97.9 F 69 17 170/67 92 11/23/18 05:02 97.7 F 60 17 163/77 98 11/23/18 04:22 24 99 11/23/18 02:09 97.7 F 70 18 153/69 93 11/22/18 23:30 18 96 11/22/18 23:20 18 89 11/22/18 21:04 98.1 F 76 18 151/72 92 11/22/18 19:50 16 92 11/22/18 16:27 98.0 F 77 19 131/61 91 11/22/18 15:05 14 87 11/22/18 11:15 18 90 11/22/18 11:14 98.1 F 75 19 189/74 90 Intake and Output 11/22/18 11/23/18 11/23/18 23:59 07:59 15:59 Intake Total 240 / 240 Output Total 250 / 1050 300 / 300 Balance -250 / -1050 -60 / -60 Intake: Oral 240 / 240 Output: Urine 250 / 1050 300 / 300 Other: Meal Breakfast Percent of Meal Consumed 100% # Voids 1 Weight 131.8 kg Patient Weight 11/23/18 23:59 Weight 131.8 kg - General Appearance Exam: General appearance: well-developed, well-nourished, appears started age, obese EENT: ATNC, PERRL, mucous membranes moist Neck: no JVD, supple Respiratory: clear Cardiology: no edema, regular rate, regular rhythm, normal S2 Gastrointestinal: normoactive bowel sounds, no tenderness, no guarding, obese Integumentary: warm and dry Neurologic: no focal deficit, no asterixis, alert and oriented x3 Musculoskeletal: no deformities, no erythema, no cyanosis Psychiatric: mood/affect appropriate, cooperative - Lab 11/22/18 05:23 11/23/18 08:01 Most recent lab results 11/23/18 11/23/18 06:07 06:07 Calcium 9.4 Phosphorus 3.7 Consult Discharge Plan - Plan Instructions: Prednisone (By mouth), Levofloxacin (By mouth), Chronic Obstructive Pulmonary Disease (DC) Additional Instructions: Your prescriptions for antibiotic and steroid have been sent to your [facility] and 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 Your antibiotic CAN effect your INR level. You need your INR checked on Sunday. Contact PCP to arrange first thing Sunday morning. Continue your home Warfarin dosing and receive further instruction by your PCP on Sunday Follow up with Dr Patel and Dr Barcenas as discussed Referrals: Lloyd Patel DO [Partnered Physician] - [facility] Care Provider[facility] - Asher Barcenas MD [Partnered Physician] - (pt reports he missed follow up appt, referral for new appt to be scheduled) Prescriptions: levoFLOXacin [Levaquin] 750 mg PO DAILY #3 tablet predniSONE [PredniSONE] 40 mg PO DAILY #3 tablet
--- NOTE | 2018-11-23 10:46 | Discharge Summary ---
- NOTES TO OUTPATIENT PROVIDER Notes to Outpatient Provider: Admitted with COPD exacerbation. Will complete 5d steroid and addl levaquin outpt. He is in normal sinus rhythm. INR on dc 1.8. Instructed to cont warfarin dosing as prescribed, needs [facility]11[facility]25[facility] for further instruction, especially on Levquin for 3 more days. 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 Please encourage bipap compliance. Orders not resulted at time of discharge: Pending orders 11/22/18 06:00 ECG 12 lead ECG [ECG] AM 0611/23/18 06:07 25-oh vitamin D [Vitamin D 25 Hydroxy] AM 04011/24/18 04:00 BMP [Basic Metabolic Panel] AM 040 PT/INR [Prothrombin Time INR] [COAG] AM 04011/25/18 04:00 PT/INR [Prothrombin Time INR] [COAG] AM 0400 11/26/18 04:00 PT/INR [Prothrombin Time INR] [COAG] AM 0400 Date of Encounter: 11/23/18 Time of Encounter: 10:20 - Discharge Diagnosis (1) Acute exacerbation of chronic obstructive airways disease Priority: Primary Status: Acute Assessment and Plan: CXR less likely pna, increased O2 requirement, dyspnea on exertion and sputum change consistent with COPDE -treated with IV steroids, transitioned to oral steroid for 5d burst, will complete levaquin course PO upon dc -he is encouraged to comply with home Bipap as he has not been -cont home inhalers, nebs -outpt pcp fu (2) Acute and chronic respiratory failure with hypoxia Priority: Secondary Status: Resolved Assessment and Plan: Resolved on first morning of admission stable on home NC at rest and with exertion -he walked with staff and O2 sat monitored, he was at baseline O2 sats on exertion and at rest on day of discharge (CM documentation notes 3L at rest, pt is INSISTENT that [facility] is for 4L at rest)regardless he is at goal o2 sats with home requirement -treatment above for COPDE (3) ESRD (end stage renal disease) Priority: Secondary Status: Chronic Assessment and Plan: Correction to prior documentation pt no longer requires HD -he does require nephro follow up outpt -at baseline kidney function as per nephro whom followed him this admission (4) Paroxysmal A-fib Priority: Secondary Status: Chronic Assessment and Plan: Correction to prior documentation- pt on Warfarin NOT eliquis He remained in NSR throughout admit -INR to 1.8 on day of dc, also is on Levquin -warfarin managed by pharmacy -pt instructed to cont home dosing and has rx for INR check 11/25 (sunday) at [facility] for further dosing instruction (no lovenox bridge due to kidney function and he has not been in afib) -cont Hospital course: Mr. Madrid is a 68 year old male pmhx HFpEF, COPD on 6L at home, ESRD NOT on HD, HTN, pAfib on warfarin, PAD s/p PCI and CEA. He presented with sob, cough and sputum change as well as low oxygen saturations at home consistent with COPDE. He had an uncomplicated course with quick return to his baseline with steroid, levquin, neb treatments. He is non compliant with Bipap at home. He was somewhat compliant with HS bipap here. Poor baseline functional status. He was eager for dc to home due to being ill. He demonstrated baseline o2 needs prior to dc and was medically stable for discharge with outpt fu required. Full details of his course can be found in the diagnoses section of this document. Pt admitted he was lost to follow up with Dr Barcenas and requested referral for appt. he also had been lost to follow up with Dr Patel and will be seeing him as well 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, nurse, social work Time spent discussing smoking cessation with patient: more than 10 minutes - Time Spent with Patient Total time spent providing and/or coordinating discharge services: Time spent: Greater than 30 minutes (40 min) - Discharge Medications Prescriptions: New levoFLOXacin [Levaquin] 750 mg PO DAILY #3 tablet predniSONE [PredniSONE] 40 mg PO DAILY #3 tablet Continued Budesonide/Formoterol 160/4.5 [Symbicort 160/4.5] 2 puff IH BID Pantoprazole Sodium [Protonix] 40 mg PO DAILY Calcitriol 0.5 mcg PO DAILY Tiotropium [place] [Spiriva Respimat] 2 puff IH DAILY@1200 Cholecalciferol (D-3) [Vitamin D] 3,000 unit PO DAILY Magnesium Oxide [Magnesium] 400 mg PO DAILY Ondansetron [Zofran] 4 mg PO Q6HR PRN #0 PRN Reason: Nausea/Vomiting Baclofen [Lioresal] 15 mg PO TID OxyCODONE/APAP 5/325 [Percocet 5/325 MG] 1 tab PO Q6HR PRN PRN Reason: Pain Allopurinol [Zyloprim 100 MG] 200 mg PO DAILY Atorvastatin Calcium [Lipitor] 40 mg PO DAILY Cetirizine HCl [24Hour Allergy] 10 mg PO DAILY PRN PRN Reason: Allergy Symptoms Digoxin [Lanoxin] 0.25 mg PO DAILY Diltiazem [Cardizem] 30 mg PO Q6H PRN PRN Reason: Heart Rate- High Ferrous Gluconate 324 mg PO BID Fluticasone Propionate Nasal [Flonase] 2 spray NS DAILY Guaifenesin 400 mg PO QID PRN PRN Reason: CHEST CONGESTION/COPD/COUGH Levalbuterol [Xopenex INH] 2 puff IH Q4H PRN PRN Reason: Shortness Of Breath Levalbuterol Neb [Xopenex Neb] 3 ml IH TID PRN PRN Reason: Shortness Of Breath Levalbuterol Neb [Xopenex Neb] 3 ml IH Q4H PRN PRN Reason: Shortness Of Breath Miconazole Nitrate [[place]] 1 appl TP DAILY PRN PRN Reason: SKIN SORES Docusate Sodium [Dok] 300 mg PO HS Meclizine [Antivert] 25 mg PO TID PRN PRN Reason: DIZZINESS/VERTIGO Metoprolol [Lopressor] 25 mg PO BID Sennosides [Laxative] 50 mg PO HS Sodium Chloride [Rowan] 2 spray NS QID PRN PRN Reason: Nasal Congestion Tamsulosin HCl [Flomax] 0.4 mg PO BID Torsemide [Demadex] 20 mg PO BID Warfarin [Coumadin] 2.5 mg PO TU Warfarin [Coumadin] 5 mg PO SUMOWETHFRSA Lidocaine HCl [Pain Relief] 1 appl TP 5-6XD PRN PRN Reason: RIGHT SHOULDER PAIN Home Medications: Budesonide/Formoterol 160/4.5 [Symbicort 160/4.5] 2 puff IH BID 09/28/15 [History] Pantoprazole Sodium [Protonix] 40 mg PO DAILY 09/28/15 [History] Calcitriol 0.5 mcg PO DAILY 02/26/18 [History] Tiotropium [place] [Spiriva Respimat] 2 puff IH DAILY@1200 02/26/18 [History] Cholecalciferol (D-3) [Vitamin D] 3,000 unit PO DAILY 03/14/18 [History] Magnesium Oxide [Magnesium] 400 mg PO DAILY 03/14/18 [History] Ondansetron [Zofran] 4 mg PO Q6HR PRN #0 04/04/18 [Rx] Baclofen [Lioresal] 15 mg PO TID 04/28/18 [History] OxyCODONE/APAP 5/325 [Percocet 5/325 MG] 1 tab PO Q6HR PRN 11/22/18 [History] Allopurinol [Zyloprim 100 MG] 200 mg PO DAILY 11/23/18 [History] Atorvastatin Calcium [Lipitor] 40 mg PO DAILY 11/23/18 [History] Cetirizine HCl [24Hour Allergy] 10 mg PO DAILY PRN 11/23/18 [History] Digoxin [Lanoxin] 0.25 mg PO DAILY 11/23/18 [History] Diltiazem [Cardizem] 30 mg PO Q6H PRN 11/23/18 [History] Docusate Sodium [Dok] 300 mg PO HS 11/23/18 [History] Ferrous Gluconate 324 mg PO BID 11/23/18 [History] Fluticasone Propionate Nasal [Flonase] 2 spray NS DAILY 11/23/18 [History] Guaifenesin 400 mg PO QID PRN 11/23/18 [History] Levalbuterol Neb [Xopenex Neb] 3 ml IH Q4H PRN 11/23/18 [History] Levalbuterol Neb [Xopenex Neb] 3 ml IH TID PRN 11/23/18 [History] Levalbuterol [Xopenex INH] 2 puff IH Q4H PRN 11/23/18 [History] Lidocaine HCl [Pain Relief] 1 appl TP 5-6XD PRN 11/23/18 [History] Meclizine [Antivert] 25 mg PO TID PRN 11/23/18 [History] Metoprolol [Lopressor] 25 mg PO BID 11/23/18 [History] Miconazole Nitrate [[place]] 1 appl TP DAILY PRN 11/23/18 [History] Sennosides [Laxative] 50 mg PO HS 11/23/18 [History] Sodium Chloride [Rowan] 2 spray NS QID PRN 11/23/18 [History] Tamsulosin HCl [Flomax] 0.4 mg PO BID 11/23/18 [History] Torsemide [Demadex] 20 mg PO BID 11/23/18 [History] Warfarin [Coumadin] 2.5 mg PO TU 11/23/18 [History] Warfarin [Coumadin] 5 mg PO SUMOWETHFRSA 11/23/18 [History] levoFLOXacin [Levaquin] 750 mg PO DAILY #3 tablet 11/23/18 [Rx] predniSONE [PredniSONE] 40 mg PO DAILY #3 tablet 11/23/18 [Rx] Allergies/Adverse Reactions: Allergy/AdvReac Type Severity Reaction Status Date / Time NSAIDS (Non-Steroidal Allergy See Verified 11/23/18 10:32 Anti-Inflamma Comments Date of admission: 11/21/18 23:53 [facility] care physician: [facility] Consults: 11/22/18 03:24 Consult to Nephrology [CONS] Routine Consulting Provider: Kidney Nabila/ANDRIA/BENJAMIN/TERRENCE Reason for Consult: ESRD on HD Call Completed: No 11/22/18 09:53 Consult to Nurse Navigator [CONS] Routine Comment: hd, copd Discharging clinician: Peggy Bryan - Constitutional Vitals: Temp Pulse Resp BP Pulse Ox 97.9 F 69 18 170/67 97 11/23/18 07:00 11/23/18 07:00 11/23/18 07:33 11/23/18 07:00 11/23/18 08:31 Exam: awake, felling well. stating he is at baseline. no wheezing, reduced cough with scant sputum. denies fevers or chills. sob is at his baseline, very eager for dc. discussed dc plan and he has no questions. encouraged bipap compliance. gen- alert, awake,appears stated age, obese cv- reg rate and rhythm, normal s1,s2, no pitting le edema lungs- ctabl, no wheezing, rhonchi or crackles, improved aearation throughout, normal resp effort on o2 nc 3L with o2 sats at goal 88-92% neuro- AAOx3, CN grossly intact - Patient Status Disposition: Home, Self-Care Condition: Fair Overall status at discharge: patient is back to baseline - Ambulatory Orders Ambulatory Orders: Prothrombin Time INR [COAG] Time Frame: 2 Days, Location: [facility] - Discharge Instructions Instructions: Prednisone (By mouth), Levofloxacin (By mouth), Chronic Obstructive Pulmonary Disease (DC) Follow Up With: [facility],PCP [Primary Care Provider] - Asher Barcenas MD [Partnered Physician] - (pt reports he missed follow up appt, referral for new appt to be scheduled) Lloyd Patel DO [Partnered Physician] - Additional Instructions: Your prescriptions for antibiotic and steroid have been sent to your [facility] and should be ready for 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 Your antibiotic CAN effect your INR level. You need your INR checked on Sunday. Contact PCP to arrange first thing Sunday morning. Continue your home Warfarin dosing and receive further instruction by your PCP on Sunday Follow up with Dr Patel and Dr Barcenas as discussed - Diet and Activity Activity: increase activity as tolerated, wear oxygen at all times Diet: advance to your usual diet
[2018-11-23] MEDS ORDERED: *HR* Warfarin 5 MG TABLET PO ONE (18:00)
== END 2018-11-23 14:24 | disposition home or self-care (01) ==
LOC: EMEROOARM 21:31 → 2ANU 21:31 → SUATTDRO 23:53 → 2ANU 11-22 00:45
PROVIDERS: ADMIT Family Medicine; ATTEND Internal Medicine

== ENCOUNTER 2019-02-18 05:20 | Inpatient (IN) ==
[~2019-02-18 05:20] MED LIST: Albuterol 2.5 MG/3 ML NEBULIZER IH PRN; Naloxone 0.4 MG/ML INJ IVP PRN
[2019-02-18 05:59] LABS: INR 1.2; Prothrombin Time 13.6 Seconds (9.4-12.1)
[2019-02-18 06:09] LABS: Bilirubin,Urine Negative (Negative); Blood,Urine Negative (Negative); Clarity,Urine Clear (Clear); Color,Urine Yellow (Yellow); Glucose,Urine (UA) Normal (Normal); Ketones,Urine 15 mg/dL (Negative); Leukocyte Esterase,Urine Negative (Negative); Nitrite,Urine Negative (Negative); PH,Urine 5.5 pH Units (5.0-8.0); Protein,Urine 30 mg/dL (Neg-Trace); Urobilinogen,Urine Normal (Normal)
[2019-02-18 06:11] LABS: Bacteria,Urine None Seen per hpf (None-Few); Hyaline Casts,Urine None Seen per lpf (None-Few); RBC,Urine 0-3 per hpf (0-3); Squamous Epithelial Cell,Urine Few per lpf (None-Few); WBC,Urine 0-3 per hpf (0-3)
[2019-02-18 06:11] LABS: Chol/HDL Ratio 2.5 (0-4.9); Magnesium 2.3 mg/dL (1.6-2.6); Phosphorous 3.6 mg/dL (2.7-4.5)
[2019-02-18] MEDS: Ipratropium/Albuterol Neb 3 ML IH SCH ×4 (06:33→22:10)
[2019-02-18 07:03] LABS: Hemoglobin 9.7 g/dL (12.9-16.9); Immature Platelets 2.9 % (1.1-6.1); Mean Corpuscular HGB Conc 30.3 g/dL (31.6-35.5); Mean Corpuscular Hemoglobin 29.8 pg (28.0-33.3); Mean Corpuscular Volume 98.5 fL (83.0-100.0); Platelet Count 250 K/mcL (140-400); Red Blood Count 3.25 M/mcL (4.19-5.50); Red Cell Distribution Width 19.3 % (11.5-14.5); White Blood Count 22.7 K/mcL (4.3-11.1)
[2019-02-18 08:08] LABS: Monocytes # 2.3 K/mcL (0.0-1.3); Platelet Estimate Normal (Normal)
[2019-02-18 08:09] LABS: Toxic Granulation Present (Not Present)
[2019-02-18] MEDS ORDERED: levoFLOXacin 500 MG TABLET PO SCH (09:00)
[2019-02-18] MEDS ORDERED: predniSONE 20 MG TABLET PO SCH (09:00)
[2019-02-18] MEDS: Diltiazem CD (24hr) 120 MG CAPSULE PO SCH (10:02)
[2019-02-18] MEDS: levoFLOXacin 750 MG/150 ML 750 MG/150 ML BAG IVPB SCH (10:02)
[2019-02-18] MEDS ORDERED: *HR* Metoprolol 5 MG/5 ML VIAL IVP ONE (17:28)
[2019-02-18] MEDS ORDERED: *HR* HYDROcodone/Acet 5/325 mg TABLET PO PRN (18:05)
[2019-02-18] MEDS ORDERED: Naloxone 0.4 MG/ML INJ IVP PRN (18:05)
[2019-02-18] MEDS ORDERED: Furosemide 40 MG/4 ML VIAL IVP ONE (18:06)
[2019-02-18] MEDS: *HR* OxyCODONE Immed Rel 5 MG TABLET PO PRN (18:54)
[2019-02-18] MEDS: MethylPREDNISolone 40 MG/ML VIAL IVP SCH (18:55)
[2019-02-18] MEDS ORDERED: Trolamine Salicylate/Aloe Vera 35.4 GM TUBE TP PRN (22:08)
[2019-02-18] MEDS ORDERED: Lidocaine OINT 35.44 GM TUBE TP ONE (22:13)
[2019-02-18] MEDS ORDERED: Perflutren Lipid Microsphere 1.3 ML in 0.9 % Sodium Chloride 8.7 ML IVP ONE (22:41)
[2019-02-19] MEDS: *HR* OxyCODONE Immed Rel 5 MG TABLET PO PRN ×2 (03:24→15:49)
[2019-02-19] MEDS: Ipratropium/Albuterol Neb 3 ML IH SCH ×4 (04:04→21:58)
[2019-02-19] MEDS: MethylPREDNISolone 40 MG/ML VIAL IVP SCH ×2 (06:12→17:46)
[2019-02-19] MEDS: levoFLOXacin 750 MG/150 ML 750 MG/150 ML BAG IVPB SCH (08:31)
[2019-02-19] MEDS: Diltiazem CD (24hr) 120 MG CAPSULE PO SCH (08:32)
[2019-02-19 08:47] LABS: Mean Corpuscular HGB Conc 30.3 g/dL (31.6-35.5); Mean Corpuscular Hemoglobin 29.6 pg (28.0-33.3); Mean Corpuscular Volume 97.6 fL (83.0-100.0); Mean Platelet Volume 10.8 fL (9.4-12.4); Platelet Count 251 K/mcL (140-400); Red Blood Count 3.38 M/mcL (4.19-5.50); Red Cell Distribution Width 18.9 % (11.5-14.5); White Blood Count 14.9 K/mcL (4.3-11.1)
[2019-02-19 09:00] LABS: Calcium 9.1 mg/dL (8.6-10.3); Potassium 4.1 mEq/L (3.5-5.1)
[2019-02-19 14:40] LABS: % Iron Saturation 9 % (20-55); Iron 24 mcg/dL (65-175); Transferrin 181 mg/dL (203-362)
[2019-02-19] MEDS: Ascorbic Acid 500 MG TABLET PO SCH (20:19)
[2019-02-19] MEDS: Ondansetron ODT 4 MG TAB.RAPDIS SL PRN (23:40)
[2019-02-20] MEDS: *HR* OxyCODONE Immed Rel 5 MG TABLET PO PRN ×2 (03:16→16:41)
[2019-02-20] MEDS: Ipratropium/Albuterol Neb 3 ML IH SCH ×4 (03:48→23:17)
[2019-02-20] MEDS ORDERED: *HR* Metoprolol 5 MG/5 ML VIAL IVP ONE ×2 (04:05→05:27)
[2019-02-20] MEDS: MethylPREDNISolone 40 MG/ML VIAL IVP SCH ×2 (06:13→16:41)
[2019-02-20] MEDS: Diltiazem CD (24hr) 120 MG CAPSULE PO SCH (06:22)
[2019-02-20] MEDS: Cholecalciferol (D-3) 1,000 UNIT (25MCG) TABLET PO SCH (07:45)
[2019-02-20] MEDS: Aspirin Enteric Coated 81 MG Tablet PO SCH (07:45)
[2019-02-20] MEDS: Ascorbic Acid 500 MG TABLET PO SCH ×3 (07:45→21:16)
[2019-02-20] MEDS: Magnesium Oxide 400 MG TABLET PO SCH (07:45)
[2019-02-20] MEDS: BOSUTINIB 500 MG PO SCH (07:46)
[2019-02-20 08:01] LABS: Hematocrit 35.5 % (37.5-50.1); Hemoglobin 10.9 g/dL (12.9-16.9); Mean Corpuscular HGB Conc 30.7 g/dL (31.6-35.5); Mean Corpuscular Hemoglobin 29.3 pg (28.0-33.3); Mean Corpuscular Volume 95.4 fL (83.0-100.0); Mean Platelet Volume 10.4 fL (9.4-12.4); Platelet Count 279 K/mcL (140-400); Red Blood Count 3.72 M/mcL (4.19-5.50); Red Cell Distribution Width 18.5 % (11.5-14.5); White Blood Count 21.1 K/mcL (4.3-11.1)
[2019-02-20 08:21] LABS: Calcium 9.2 mg/dL (8.6-10.3); Potassium 4.2 mEq/L (3.5-5.1)
[2019-02-20] MEDS ORDERED: levoFLOXacin 750 MG/150 ML 750 MG/150 ML BAG IVPB SCH (09:00)
[2019-02-20] MEDS ORDERED: Roflumilast [Daliresp] 500 MCG PO SCH (09:00)
[2019-02-20] MEDS: Ondansetron ODT 4 MG TAB.RAPDIS SL PRN (11:28)
[2019-02-20] MEDS: *HR* Metoprolol 5 MG/5 ML VIAL IVP SCH ×2 (11:28→12:01)
[2019-02-20] MEDS: MOM Conc 10 ML UD.LIQ PO SCH (22:44)
[2019-02-21] MEDS ORDERED: Nitroglycerin 0.4 MG TAB.SUBL SL PRN (01:12)
[2019-02-21] MEDS ORDERED: *HR* Metoprolol 5 MG/5 ML VIAL IVP ONE ×5 (01:13→17:19)
[2019-02-21] MEDS ORDERED: GI Cocktail 40 ML EACH PO ONE (01:15)
[2019-02-21] MEDS ORDERED: *HR* Promethazine 25 MG/ML VIAL IVP PRN ×2 (01:15→11:53)
[2019-02-21] MEDS ORDERED: Pantoprazole 40 MG in 0.9 % Sodium Chloride Mini Bag 100 ML IVC SCH (01:45)
[2019-02-21 01:53] LABS: ABG Base Excess 9 mEq/L (-2 to 3); ABG HCO3 34 mEq/L (21-27); ABG Oxygen Saturation 93 % (95-98); ABG PCO2 46 mmHg (35-45); ABG PH 7.48 pH Units (7.32-7.45); ABG PO2 62 mmHg (85-104); ABG TCO2 35 mEq/L (20-26)
[2019-02-21 01:58] LABS: Hematocrit 37.8 % (37.5-50.1); Hemoglobin 11.8 g/dL (12.9-16.9); Mean Corpuscular HGB Conc 31.2 g/dL (31.6-35.5); Mean Corpuscular Hemoglobin 29.9 pg (28.0-33.3); Mean Corpuscular Volume 95.9 fL (83.0-100.0); Mean Platelet Volume 10.6 fL (9.4-12.4); Platelet Count 316 K/mcL (140-400); Red Blood Count 3.94 M/mcL (4.19-5.50); Red Cell Distribution Width 18.9 % (11.5-14.5); White Blood Count 26.7 K/mcL (4.3-11.1)
[2019-02-21 02:16] LABS: Calcium 9.7 mg/dL (8.6-10.3); Potassium 4.5 mEq/L (3.5-5.1)
[2019-02-21] MEDS: Ipratropium/Albuterol Neb 3 ML IH SCH (03:22)
[2019-02-21] MEDS ORDERED: Famotidine 20 MG/2 ML VIAL IVP ONE (04:38)
[2019-02-21] MEDS: MethylPREDNISolone 40 MG/ML VIAL IVP SCH ×2 (06:11→18:48)
[2019-02-21] MEDS ORDERED: Metoclopramide 10 MG/2 ML VIAL IVP ONE (08:00)
[2019-02-21] MEDS: Pantoprazole 40 MG VIAL IVP SCH (08:36)
[2019-02-21] MEDS: Levalbuterol Neb 1.25 MG/3 ML IH SCH ×3 (10:27→22:46)
[2019-02-21] MEDS: Aspirin Enteric Coated 81 MG Tablet PO SCH (11:10)
[2019-02-21] MEDS: Magnesium Oxide 400 MG TABLET PO SCH (11:10)
[2019-02-21] MEDS: Ascorbic Acid 500 MG TABLET PO SCH ×3 (11:10→20:26)
[2019-02-21] MEDS: BOSUTINIB 500 MG PO SCH (11:10)
[2019-02-21] MEDS: Cholecalciferol (D-3) 1,000 UNIT (25MCG) TABLET PO SCH (11:11)
[2019-02-21] MEDS ORDERED: Metoclopramide 10 MG/2 ML VIAL IVP PRN (11:52)
[2019-02-21] MEDS ORDERED: *HR* Digoxin 0.5 MG/2 ML AMPUL IVP ONE (15:33)
[2019-02-21] MEDS: Piperacillin/Tazobactam 3.375 GM in 0.9 % Sodium Chloride Mini Bag 100 ML IVPB SCH ×2 (16:56→23:22)
[2019-02-21] MEDS ORDERED: *HR* Metoprolol 5 MG/5 ML VIAL IVP PRN (18:49)
[2019-02-21] MEDS: MOM Conc 10 ML UD.LIQ PO SCH (20:26)
[2019-02-21] MEDS ORDERED: *HR* OxyCODONE Immed Rel 5 MG TABLET PO ONE (21:04)
[2019-02-21] MEDS: Famotidine 20 MG/2 ML VIAL IVP SCH (21:29)
[2019-02-21 23:27] LABS: Adenovirus Not Detected (Not Detect); Bordetella Pertussis Not Detected (Not Detect); Chlamydophila pneumoniae Not Detected (Not Detect); Coronavirus 229E Not Detected (Not Detect); Coronavirus HKU1 Not Detected (Not Detect); Coronavirus NL63 Not Detected (Not Detect); Coronavirus OC43 Not Detected (Not Detect); Human Metapneumovirus Not Detected (Not Detect); Human Rhinovirus/Enterovirus Not Detected (Not Detect); Influenza A Subtype 2009 H1 Not Detected (Not Detect); Influenza A Untypeable Not Detected (Not Detect); Influenza B Not Detected (Not Detect); Mycoplasma pneumoniae Not Detected (Not Detect); Parainfluenza Virus 1 Not Detected (Not Detect); Parainfluenza Virus 2 Not Detected (Not Detect); Parainfluenza Virus 3 Not Detected (Not Detect); Parainfluenza Virus 4 Not Detected (Not Detect); Respiratory Syncytial Virus Not Detected (Not Detect)
[2019-02-22 03:31] LABS: Hemoglobin 10.6 g/dL (12.9-16.9)
[2019-02-22] MEDS: Levalbuterol Neb 1.25 MG/3 ML IH SCH ×5 (03:31→22:20)
[2019-02-22 03:33] LABS: Hematocrit 34.4 % (37.5-50.1); Mean Corpuscular HGB Conc 30.8 g/dL (31.6-35.5); Mean Corpuscular Hemoglobin 29.3 pg (28.0-33.3); Platelet Count 256 K/mcL (140-400); Red Blood Count 3.62 M/mcL (4.19-5.50); Red Cell Distribution Width 18.7 % (11.5-14.5); White Blood Count 26.8 K/mcL (4.3-11.1)
[2019-02-22 03:54] LABS: Calcium 8.8 mg/dL (8.6-10.3); Potassium 4.8 mEq/L (3.5-5.1)
[2019-02-22] MEDS: MethylPREDNISolone 40 MG/ML VIAL IVP SCH ×2 (06:03→16:35)
[2019-02-22] MEDS: Magnesium Oxide 400 MG TABLET PO SCH (08:08)
[2019-02-22] MEDS: Aspirin Enteric Coated 81 MG Tablet PO SCH (08:08)
[2019-02-22] MEDS: Cholecalciferol (D-3) 1,000 UNIT (25MCG) TABLET PO SCH (08:08)
[2019-02-22] MEDS: Ascorbic Acid 500 MG TABLET PO SCH ×3 (08:08→20:19)
[2019-02-22] MEDS: Pantoprazole 40 MG VIAL IVP SCH (08:09)
[2019-02-22] MEDS: Piperacillin/Tazobactam 3.375 GM in 0.9 % Sodium Chloride Mini Bag 100 ML IVPB SCH ×2 (08:09→16:35)
[2019-02-22] MEDS: BOSUTINIB 500 MG PO SCH (08:12)
[2019-02-22] MEDS ORDERED: Diltiazem CD (24hr) 240 MG CAPSULE PO SCH (11:55)
[2019-02-22] MEDS ORDERED: Furosemide 20 MG/2 ML VIAL IVP ONE (12:03)
[2019-02-22] MEDS: Famotidine 20 MG/2 ML VIAL IVP SCH (20:20)
[2019-02-22] MEDS: MOM Conc 10 ML UD.LIQ PO SCH (20:34)
[2019-02-23] MEDS: Loratadine 10 MG TABLET PO PRN ×2 (00:10→20:47)
[2019-02-23] MEDS: Acetaminophen 325 MG TABLET PO PRN (00:10)
[2019-02-23] MEDS: Piperacillin/Tazobactam 3.375 GM in 0.9 % Sodium Chloride Mini Bag 100 ML IVPB SCH ×4 (00:11→23:47)
[2019-02-23 03:37] LABS: Hematocrit 34.5 % (37.5-50.1); Red Cell Distribution Width 18.6 % (11.5-14.5)
[2019-02-23 03:38] LABS: Hemoglobin 10.7 g/dL (12.9-16.9); Mean Corpuscular Hemoglobin 29.6 pg (28.0-33.3); Mean Corpuscular Volume 95.3 fL (83.0-100.0); Mean Platelet Volume 10.4 fL (9.4-12.4); Platelet Count 273 K/mcL (140-400); Red Blood Count 3.62 M/mcL (4.19-5.50); White Blood Count 27.7 K/mcL (4.3-11.1)
[2019-02-23 03:59] LABS: Calcium 8.6 mg/dL (8.6-10.3); Potassium 4.6 mEq/L (3.5-5.1)
[2019-02-23] MEDS: Levalbuterol Neb 1.25 MG/3 ML IH SCH ×4 (04:19→22:24)
[2019-02-23] MEDS ORDERED: 0.9 % Sodium Chloride 250 ML ONE (04:32)
[2019-02-23] MEDS: MethylPREDNISolone 40 MG/ML VIAL IVP SCH ×2 (05:10→17:42)
[2019-02-23] MEDS: Magnesium Oxide 400 MG TABLET PO SCH (08:21)
[2019-02-23] MEDS: Cholecalciferol (D-3) 1,000 UNIT (25MCG) TABLET PO SCH (08:21)
[2019-02-23] MEDS: Ascorbic Acid 500 MG TABLET PO SCH ×3 (08:21→20:47)
[2019-02-23] MEDS: Pantoprazole 40 MG VIAL IVP SCH (08:22)
[2019-02-23] MEDS: Aspirin Enteric Coated 81 MG Tablet PO SCH (08:22)
[2019-02-23] MEDS: BOSUTINIB 500 MG PO SCH (08:24)
[2019-02-23] MEDS: Famotidine 20 MG/2 ML VIAL IVP SCH (20:48)
[2019-02-23] MEDS: MOM Conc 10 ML UD.LIQ PO SCH (20:55)
[2019-02-24] MEDS: Levalbuterol Neb 1.25 MG/3 ML IH SCH ×4 (04:11→22:01)
[2019-02-24 04:41] LABS: Hematocrit 32.7 % (37.5-50.1); Hemoglobin 10.1 g/dL (12.9-16.9); Mean Corpuscular HGB Conc 30.9 g/dL (31.6-35.5); Mean Corpuscular Hemoglobin 29.7 pg (28.0-33.3); Mean Corpuscular Volume 96.2 fL (83.0-100.0); Mean Platelet Volume 10.4 fL (9.4-12.4); Platelet Count 243 K/mcL (140-400); Red Cell Distribution Width 18.7 % (11.5-14.5); White Blood Count 23.4 K/mcL (4.3-11.1)
[2019-02-24 05:00] LABS: Calcium 8.6 mg/dL (8.6-10.3); Potassium 4.7 mEq/L (3.5-5.1)
[2019-02-24] MEDS: MethylPREDNISolone 40 MG/ML VIAL IVP SCH ×2 (06:32→16:52)
[2019-02-24] MEDS: Acetaminophen 325 MG TABLET PO PRN (06:37)
[2019-02-24] MEDS: Cholecalciferol (D-3) 1,000 UNIT (25MCG) TABLET PO SCH (08:37)
[2019-02-24] MEDS: Ascorbic Acid 500 MG TABLET PO SCH ×3 (08:37→20:55)
[2019-02-24] MEDS: Pantoprazole 40 MG VIAL IVP SCH (08:37)
[2019-02-24] MEDS: BOSUTINIB 500 MG PO SCH (08:37)
[2019-02-24] MEDS: Magnesium Oxide 400 MG TABLET PO SCH (08:37)
[2019-02-24] MEDS: Aspirin Enteric Coated 81 MG Tablet PO SCH (08:37)
[2019-02-24] MEDS: Piperacillin/Tazobactam 3.375 GM in 0.9 % Sodium Chloride Mini Bag 100 ML IVPB SCH ×3 (08:38→23:53)
[2019-02-24] MEDS: *HR* OxyCODONE/APAP 5/325 TABLET PO PRN ×2 (17:09→23:52)
[2019-02-24] MEDS: MOM Conc 10 ML UD.LIQ PO SCH (20:54)
[2019-02-24] MEDS: Famotidine 20 MG/2 ML VIAL IVP SCH (20:55)
[2019-02-25] MEDS: Levalbuterol Neb 1.25 MG/3 ML IH SCH ×4 (03:44→21:58)
[2019-02-25] MEDS: MethylPREDNISolone 40 MG/ML VIAL IVP SCH ×2 (05:00→18:50)
[2019-02-25 08:31] LABS: Hematocrit 33.5 % (37.5-50.1); Hemoglobin 10.2 g/dL (12.9-16.9); Mean Corpuscular HGB Conc 30.4 g/dL (31.6-35.5); Mean Corpuscular Hemoglobin 29.1 pg (28.0-33.3); Mean Corpuscular Volume 95.7 fL (83.0-100.0); Mean Platelet Volume 10.7 fL (9.4-12.4); Platelet Count 253 K/mcL (140-400); Red Cell Distribution Width 18.7 % (11.5-14.5); White Blood Count 25.3 K/mcL (4.3-11.1)
[2019-02-25 08:49] LABS: Calcium 8.8 mg/dL (8.6-10.3); Potassium 4.9 mEq/L (3.5-5.1)
[2019-02-25] MEDS: Magnesium Oxide 400 MG TABLET PO SCH (10:56)
[2019-02-25] MEDS: Cholecalciferol (D-3) 1,000 UNIT (25MCG) TABLET PO SCH (10:56)
[2019-02-25] MEDS: Pantoprazole 40 MG VIAL IVP SCH (10:56)
[2019-02-25] MEDS: BOSUTINIB 500 MG PO SCH (10:57)
[2019-02-25] MEDS: Piperacillin/Tazobactam 3.375 GM in 0.9 % Sodium Chloride Mini Bag 100 ML IVPB SCH (10:57)
[2019-02-25] MEDS: Ascorbic Acid 500 MG TABLET PO SCH ×3 (10:57→21:01)
[2019-02-25] MEDS: Aspirin Enteric Coated 81 MG Tablet PO SCH (10:58)
[2019-02-25] MEDS: *HR* OxyCODONE/APAP 5/325 TABLET PO PRN ×2 (11:10→21:08)
[2019-02-25] MEDS ORDERED: Famotidine 20 MG TABLET PO SCH (21:00)
[2019-02-25] MEDS: Doxycycline 100 MG CAPSULE PO SCH (21:02)
[2019-02-25] MEDS: MOM Conc 10 ML UD.LIQ PO SCH (21:02)
[2019-02-26] MEDS: Levalbuterol Neb 1.25 MG/3 ML IH SCH ×4 (03:43→22:38)
[2019-02-26 04:34] LABS: Hemoglobin 9.5 g/dL (12.9-16.9); Platelet Count 227 K/mcL (140-400); Red Cell Distribution Width 18.6 % (11.5-14.5)
[2019-02-26 04:35] LABS: Hematocrit 30.3 % (37.5-50.1); Mean Corpuscular HGB Conc 31.4 g/dL (31.6-35.5); Mean Corpuscular Hemoglobin 30.4 pg (28.0-33.3); Mean Corpuscular Volume 97.1 fL (83.0-100.0); Mean Platelet Volume 11.2 fL (9.4-12.4); Red Blood Count 3.12 M/mcL (4.19-5.50); White Blood Count 26.2 K/mcL (4.3-11.1)
[2019-02-26 04:58] LABS: Calcium 9.1 mg/dL (8.6-10.3); Potassium 4.8 mEq/L (3.5-5.1)
[2019-02-26] MEDS: MethylPREDNISolone 40 MG/ML VIAL IVP SCH ×2 (05:34→17:21)
[2019-02-26] MEDS ORDERED: Acetaminophen 325 MG TABLET PO PRN (08:14)
[2019-02-26] MEDS: Doxycycline 100 MG CAPSULE PO SCH ×2 (10:20→20:19)
[2019-02-26] MEDS: Cholecalciferol (D-3) 1,000 UNIT (25MCG) TABLET PO SCH (10:21)
[2019-02-26] MEDS: BOSUTINIB 500 MG PO SCH (10:21)
[2019-02-26] MEDS: *HR* OxyCODONE/APAP 5/325 TABLET PO PRN ×2 (10:21→17:21)
[2019-02-26] MEDS: Ascorbic Acid 500 MG TABLET PO SCH ×2 (10:21→17:21)
[2019-02-26] MEDS: Aspirin Enteric Coated 81 MG Tablet PO SCH (10:21)
[2019-02-26] MEDS: Magnesium Oxide 400 MG TABLET PO SCH (10:21)
[2019-02-26] MEDS: Sennosides/Docusate Sodium TABLET PO SCH (20:19)
[2019-02-27] MEDS: Levalbuterol Neb 1.25 MG/3 ML IH SCH ×4 (04:12→21:26)
[2019-02-27 04:34] LABS: Hemoglobin 9.5 g/dL (12.9-16.9); Red Cell Distribution Width 18.8 % (11.5-14.5)
[2019-02-27 04:35] LABS: Hematocrit 30.1 % (37.5-50.1); Mean Corpuscular HGB Conc 31.6 g/dL (31.6-35.5); Mean Corpuscular Hemoglobin 30.2 pg (28.0-33.3); Mean Corpuscular Volume 95.6 fL (83.0-100.0); Mean Platelet Volume 10.9 fL (9.4-12.4); Platelet Count 243 K/mcL (140-400); Red Blood Count 3.15 M/mcL (4.19-5.50)
[2019-02-27 04:41] LABS: White Blood Count 30.1 K/mcL (4.3-11.1)
[2019-02-27 04:52] LABS: BUN/Creatinine Ratio 43 (6-26); Blood Urea Nitrogen 60 mg/dL (8-23); Calcium 9.1 mg/dL (8.6-10.3); Carbon Dioxide 25 mEq/L (23-29); Chloride 105 mEq/L (98-107); Glucose 124 mg/dL (70-105); Osmolality,Calculated 304 (280-300); Potassium 5.2 mEq/L (3.5-5.1); Sodium 138 mEq/L (136-145); eGFR For African Americans > 60 (> 60); eGFR For Non-African Americans 51 (> 60)
[2019-02-27] MEDS: *HR* OxyCODONE/APAP 5/325 TABLET PO PRN ×3 (05:18→20:16)
[2019-02-27] MEDS: Doxycycline 100 MG CAPSULE PO SCH ×2 (09:09→20:16)
[2019-02-27] MEDS: Aspirin Enteric Coated 81 MG Tablet PO SCH (09:10)
[2019-02-27] MEDS: Torsemide 20 MG TABLET PO SCH (09:10)
[2019-02-27] MEDS: Ascorbic Acid 500 MG TABLET PO SCH ×2 (09:11→16:32)
[2019-02-27] MEDS: predniSONE 20 MG TABLET PO SCH (09:11)
[2019-02-27] MEDS: Sennosides/Docusate Sodium TABLET PO SCH ×2 (09:11→20:16)
[2019-02-27] MEDS: Cholecalciferol (D-3) 1,000 UNIT (25MCG) TABLET PO SCH (09:12)
[2019-02-27] MEDS: BOSUTINIB 500 MG PO SCH (09:15)
[2019-02-27] MEDS: Magnesium Oxide 400 MG TABLET PO SCH (09:15)
[2019-02-27] MEDS: hydrALAZINE 25 MG TABLET PO SCH ×3 (12:32→23:54)
[2019-02-27] MEDS: *HR* Heparin 5,000 UNIT/ML VIAL SQ SCH (18:02)
[2019-02-27] MEDS: Trolamine Salicylate/Aloe Vera 85 APPL/85 GM TUBE TP PRN (21:03)
[2019-02-28] MEDS: Levalbuterol Neb 1.25 MG/3 ML IH SCH ×4 (04:12→22:17)
[2019-02-28] MEDS: *HR* Heparin 5,000 UNIT/ML VIAL SQ SCH ×2 (05:12→17:25)
[2019-02-28 05:33] LABS: Hematocrit 30.9 % (37.5-50.1); Hemoglobin 9.4 g/dL (12.9-16.9); Mean Corpuscular HGB Conc 30.4 g/dL (31.6-35.5)
[2019-02-28 05:35] LABS: Mean Corpuscular Hemoglobin 29.6 pg (28.0-33.3); Mean Corpuscular Volume 97.2 fL (83.0-100.0); Mean Platelet Volume 11.5 fL (9.4-12.4); Platelet Count 266 K/mcL (140-400); Red Blood Count 3.18 M/mcL (4.19-5.50); Red Cell Distribution Width 19.2 % (11.5-14.5)
[2019-02-28 05:47] LABS: Magnesium 2.2 mg/dL (1.6-2.6); Phosphorous 4.3 mg/dL (2.7-4.5)
[2019-02-28 05:50] LABS: White Blood Count 33.1 K/mcL (4.3-11.1)
[2019-02-28 06:07] LABS: Potassium 4.8 mEq/L (3.5-5.1)
[2019-02-28 06:24] LABS: Lymphocytes # 3.3 K/mcL (0.6-4.6); Monocytes # 1.3 K/mcL (0.0-1.3); Neutrophils # 27.1 K/mcL (1.6-8.9)
[2019-02-28] MEDS: *HR* OxyCODONE/APAP 5/325 TABLET PO PRN ×2 (09:14→17:25)
[2019-02-28] MEDS: Aspirin Enteric Coated 81 MG Tablet PO SCH (09:15)
[2019-02-28] MEDS: Magnesium Oxide 400 MG TABLET PO SCH (09:15)
[2019-02-28] MEDS: Doxycycline 100 MG CAPSULE PO SCH ×2 (09:15→21:51)
[2019-02-28] MEDS: Ondansetron ODT 4 MG TAB.RAPDIS SL PRN (09:15)
[2019-02-28] MEDS: predniSONE 20 MG TABLET PO SCH (09:15)
[2019-02-28] MEDS: hydrALAZINE 25 MG TABLET PO SCH ×3 (09:15→23:58)
[2019-02-28] MEDS: Torsemide 20 MG TABLET PO SCH (09:16)
[2019-02-28] MEDS: Ascorbic Acid 500 MG TABLET PO SCH ×2 (09:16→17:25)
[2019-02-28] MEDS: Sennosides/Docusate Sodium TABLET PO SCH ×2 (09:16→21:51)
[2019-02-28] MEDS: Cholecalciferol (D-3) 1,000 UNIT (25MCG) TABLET PO SCH (09:16)
[2019-02-28] MEDS: BOSUTINIB 500 MG PO SCH (09:18)
[2019-02-28] MEDS: Trolamine Salicylate/Aloe Vera 85 APPL/85 GM TUBE TP PRN (17:28)
[2019-03-01] MEDS: Levalbuterol Neb 1.25 MG/3 ML IH SCH ×2 (03:57→09:55)
[2019-03-01] MEDS: *HR* Heparin 5,000 UNIT/ML VIAL SQ SCH (05:37)
[2019-03-01 07:41] VITALS: BP 113/54
[2019-03-01] MEDS: Sennosides/Docusate Sodium TABLET PO SCH (08:41)
[2019-03-01] MEDS: predniSONE 20 MG TABLET PO SCH (08:41)
[2019-03-01] MEDS: Torsemide 20 MG TABLET PO SCH (08:42)
[2019-03-01] MEDS: Magnesium Oxide 400 MG TABLET PO SCH (08:42)
[2019-03-01] MEDS: Ascorbic Acid 500 MG TABLET PO SCH (08:42)
[2019-03-01] MEDS: Aspirin Enteric Coated 81 MG Tablet PO SCH (08:42)
[2019-03-01] MEDS: hydrALAZINE 25 MG TABLET PO SCH (08:42)
[2019-03-01] MEDS: Cholecalciferol (D-3) 1,000 UNIT (25MCG) TABLET PO SCH (08:42)
[2019-03-01] MEDS: BOSUTINIB 500 MG PO SCH (08:43)
[2019-03-01] MEDS: *HR* OxyCODONE/APAP 5/325 TABLET PO PRN (08:48)
[2019-03-01] MEDS: Ondansetron ODT 4 MG TAB.RAPDIS SL PRN (09:00)
[2019-03-04 12:07] LABS: BCR-ABL1 Source NOT SPECIFIED
[2019-03-04 12:50] LABS: BCR-ABL1 Major (p210) Result DETECTED; BCR-ABL1 Minor (p190) Result NOT DETECTED
== END 2019-03-01 10:36 | DRG 177 ==
LOC: 2ANU → SUATTDRO 05:20 → 2ANU 18:15 → 2NNU 02-21 19:05 → 2ANU 02-26 02:03
PROVIDERS: ADMIT Internal Medicine; ATTEND Internal Medicine

== ENCOUNTER 2019-03-08 20:03 | Inpatient (IN) ==
[2019-03-09] MEDS ORDERED: Fluticasone Propionate Nasal 50 MCG/SPRAY BOTTLE NS PRN (01:25)
[2019-03-09] MEDS ORDERED: *HR* Digoxin 0.125 MG TABLET PO SCH (01:30)
[2019-03-09 01:48] LABS: Basophils % 0.1 %; Hematocrit 25.5 % (37.5-50.1); Immature Granulocytes % 1.1 % (0-4); Lymphocytes % 4.2 %; Mean Corpuscular HGB Conc 31.4 g/dL (31.6-35.5); Mean Corpuscular Hemoglobin 30.5 pg (28.0-33.3); Mean Corpuscular Volume 97.3 fL (83.0-100.0); Mean Platelet Volume 11.3 fL (9.4-12.4); Monocytes # 0.7 K/mcL (0.0-1.3); Monocytes % 2.7 %; Neutrophils # 22.6 K/mcL (1.6-8.9); Platelet Count 183 K/mcL (140-400); Red Blood Count 2.62 M/mcL (4.19-5.50); Red Cell Distribution Width 19.5 % (11.5-14.5); Segmented Neutrophils % 91.9 %; White Blood Count 24.6 K/mcL (4.3-11.1)
[2019-03-09 01:55] LABS: INR 1.7; Prothrombin Time 19.3 Seconds (9.4-12.1)
[2019-03-09 01:56] LABS: VBG HCO3 29 mEq/L (21-27); VBG PCO2 46 mmHg (41-51); VBG PH 7.41 pH Units (7.32-7.42); VBG PO2 137 mmHg (25-50)
[2019-03-09 01:58] LABS: Activated Partial Thrombo Time 27.2 Seconds (26.0-36.0)
[2019-03-09 02:03] LABS: Anisocytosis 1+ (Not Present)
[2019-03-09 02:07] LABS: Platelet Estimate Normal (Normal)
[2019-03-09 02:13] LABS: Calcium 9.7 mg/dL (8.6-10.3); Magnesium 2.2 mg/dL (1.6-2.6); Potassium 4.7 mEq/L (3.5-5.1); Troponin I 0.2 ng/mL (< 0.04)
[2019-03-09] MEDS ORDERED: Furosemide 40 MG/4 ML VIAL IVP ONE (02:45)
[2019-03-09] MEDS: *HR* LORazepam 0.5 MG TABLET PO SCH ×2 (02:46→20:03)
[2019-03-09] MEDS: Budesonide/Formoterol 160/4.5 1 PUFF INH IH SCH ×2 (07:34→19:54)
[2019-03-09] MEDS: Baclofen 10 MG TABLET PO SCH ×3 (08:29→20:05)
[2019-03-09] MEDS: Magnesium Oxide 400 MG TABLET PO SCH (08:30)
[2019-03-09] MEDS: Torsemide 20 MG TABLET PO SCH (08:30)
[2019-03-09] MEDS: Cholecalciferol (D-3) 1,000 UNIT (25MCG) TABLET PO SCH (08:31)
[2019-03-09] MEDS: Aspirin Enteric Coated 81 MG Tablet PO SCH (08:31)
[2019-03-09] MEDS: Ondansetron ODT 4 MG TAB.RAPDIS PO PRN (08:31)
[2019-03-09] MEDS: Sennosides 8.6 MG TABLET PO SCH ×2 (08:31→20:03)
[2019-03-09] MEDS: Diltiazem CD (24hr) 240 MG CAPSULE PO SCH (08:31)
[2019-03-09] MEDS: hydrALAZINE 25 MG TABLET PO SCH ×2 (08:31→17:11)
[2019-03-09] MEDS: *HR* OxyCODONE/APAP 5/325 TABLET PO PRN ×2 (08:48→20:04)
[2019-03-09] MEDS ORDERED: Loratadine 10 MG TABLET PO PRN (09:00)
[2019-03-09] MEDS ORDERED: Ascorbic Acid 500 MG TABLET PO SCH (09:00)
[2019-03-09] MEDS ORDERED: BOSUTINIB 500 MG PO SCH (09:00)
[2019-03-09] MEDS ORDERED: (Roflumilast [Daliresp] 500 MCG) PO SCH (09:00)
[2019-03-09 11:35] LABS: Bilirubin,Urine Negative (Negative); Blood,Urine Negative (Negative); Clarity,Urine Clear (Clear); Color,Urine Yellow (Yellow); Glucose,Urine (UA) Normal (Normal); Ketones,Urine Negative (Negative); Leukocyte Esterase,Urine Small (Negative); Nitrite,Urine Negative (Negative); PH,Urine 5.5 pH Units (5.0-8.0); Protein,Urine Negative (Neg-Trace); Specific Gravity,Urine 1.017 (1.010-1.025); Urobilinogen,Urine Normal (Normal)
[2019-03-09 11:46] LABS: Squamous Epithelial Cell,Urine Few per lpf (None-Few); WBC,Urine 0-3 per hpf (0-3)
[2019-03-09 11:47] LABS: Bacteria,Urine Few per hpf (None-Few)
[2019-03-09] MEDS: cefTRIAXone 2,000 MG in 0.9 % Sodium Chloride Mini Bag 100 ML IVPB SCH (13:38)
[2019-03-09] MEDS: *HR* Heparin 5,000 UNIT/ML VIAL SQ SCH ×2 (13:39→20:05)
[2019-03-09] MEDS ORDERED: Albuterol 2.5 MG/3 ML NEBULIZER IH PRN (14:51)
[2019-03-09] MEDS ORDERED: Furosemide 20 MG/2 ML VIAL IVP ONE (15:17)
[2019-03-09] MEDS ORDERED: 0.9 % Sodium Chloride 1,000 ML IVC SCH (17:15)
[2019-03-09] MEDS: Ipratropium/Albuterol Neb 3 ML IH PRN (19:54)
[2019-03-10] MEDS: hydrALAZINE 25 MG TABLET PO SCH ×3 (00:05→15:08)
[2019-03-10 04:41] LABS: Basophils % 0.1 %; Eosinophils % 0.2 %; Hematocrit 25.1 % (37.5-50.1); Hemoglobin 7.6 g/dL (12.9-16.9); Immature Granulocytes % 1.2 % (0-4); Lymphocytes # 1.1 K/mcL (0.6-4.6); Lymphocytes % 7.4 %; Mean Corpuscular HGB Conc 30.3 g/dL (31.6-35.5); Mean Corpuscular Hemoglobin 29.5 pg (28.0-33.3); Mean Corpuscular Volume 97.3 fL (83.0-100.0); Mean Platelet Volume 11.6 fL (9.4-12.4); Monocytes # 0.5 K/mcL (0.0-1.3); Monocytes % 3.6 %; Neutrophils # 12.8 K/mcL (1.6-8.9); Platelet Count 153 K/mcL (140-400); Red Blood Count 2.58 M/mcL (4.19-5.50); Red Cell Distribution Width 19.6 % (11.5-14.5); Segmented Neutrophils % 87.5 %; White Blood Count 14.7 K/mcL (4.3-11.1)
[2019-03-10 05:05] LABS: Calcium 9.2 mg/dL (8.6-10.3); Potassium 4.2 mEq/L (3.5-5.1); Troponin I 0.08 ng/mL (< 0.04)
[2019-03-10] MEDS: *HR* Heparin 5,000 UNIT/ML VIAL SQ SCH ×3 (06:08→20:11)
[2019-03-10] MEDS: *HR* OxyCODONE/APAP 5/325 TABLET PO PRN ×2 (06:11→18:32)
[2019-03-10] MEDS: Ondansetron ODT 4 MG TAB.RAPDIS PO PRN (06:12)
[2019-03-10] MEDS: Ipratropium/Albuterol Neb 3 ML IH PRN ×2 (07:37→14:57)
[2019-03-10] MEDS: Budesonide/Formoterol 160/4.5 1 PUFF INH IH SCH ×2 (07:37→19:54)
[2019-03-10] MEDS ORDERED: Albuterol 2.5 MG/3 ML NEBULIZER IH PRN (07:51)
[2019-03-10] MEDS: Cholecalciferol (D-3) 1,000 UNIT (25MCG) TABLET PO SCH (07:56)
[2019-03-10] MEDS: Diltiazem CD (24hr) 240 MG CAPSULE PO SCH (07:56)
[2019-03-10] MEDS: Torsemide 20 MG TABLET PO SCH (07:57)
[2019-03-10] MEDS: Sennosides 8.6 MG TABLET PO SCH ×2 (07:57→19:57)
[2019-03-10] MEDS: Baclofen 10 MG TABLET PO SCH ×3 (07:57→19:58)
[2019-03-10] MEDS: Magnesium Oxide 400 MG TABLET PO SCH (07:58)
[2019-03-10] MEDS: cefTRIAXone 2,000 MG in 0.9 % Sodium Chloride Mini Bag 100 ML IVPB SCH (07:58)
[2019-03-10] MEDS: Aspirin Enteric Coated 81 MG Tablet PO SCH (07:58)
[2019-03-10] MEDS: BOSUTINIB 500 MG PO SCH (08:03)
[2019-03-10] MEDS: Ascorbic Acid 500 MG TABLET PO SCH ×2 (08:09→18:32)
[2019-03-10] MEDS ORDERED: NON-FORMULARY MEDICATION 1 EACH EACH (Fluticasone/Vilanterol [Breo Ellipta 100-25 Mcg Inh] IH SCH (09:00)
[2019-03-10] MEDS ORDERED: predniSONE 20 MG TABLET PO SCH (09:00)
[2019-03-10] MEDS ORDERED: Perflutren Lipid Microsphere 1.3 ML in 0.9 % Sodium Chloride 8.7 ML IVP ONE (09:40)
[2019-03-10] MEDS ORDERED: Diltiazem CD (24hr) 120 MG CAPSULE PO ONE (15:37)
[2019-03-10] MEDS: *HR* LORazepam 0.5 MG TABLET PO SCH (19:57)
[2019-03-11] MEDS: hydrALAZINE 25 MG TABLET PO SCH ×4 (00:06→23:59)
[2019-03-11] MEDS: *HR* Heparin 5,000 UNIT/ML VIAL SQ SCH ×3 (05:45→19:51)
[2019-03-11 06:06] LABS: Basophils % 0.1 %; Eosinophils % 0.1 %; Hemoglobin 7.6 g/dL (12.9-16.9); Immature Granulocytes % 0.9 % (0-4); Lymphocytes # 0.9 K/mcL (0.6-4.6); Lymphocytes % 6.7 %; Mean Corpuscular HGB Conc 30.4 g/dL (31.6-35.5); Mean Corpuscular Hemoglobin 29.6 pg (28.0-33.3); Mean Corpuscular Volume 97.3 fL (83.0-100.0); Mean Platelet Volume 11.9 fL (9.4-12.4); Monocytes # 0.5 K/mcL (0.0-1.3); Neutrophils # 11.6 K/mcL (1.6-8.9); Platelet Count 137 K/mcL (140-400); Red Blood Count 2.57 M/mcL (4.19-5.50); Red Cell Distribution Width 19.1 % (11.5-14.5); Segmented Neutrophils % 88.2 %; White Blood Count 13.1 K/mcL (4.3-11.1)
[2019-03-11 06:32] LABS: Calcium 8.7 mg/dL (8.6-10.3); Potassium 4.2 mEq/L (3.5-5.1); Troponin I 0.07 ng/mL (< 0.04)
[2019-03-11] MEDS: cefTRIAXone 2,000 MG in 0.9 % Sodium Chloride Mini Bag 100 ML IVPB SCH (07:47)
[2019-03-11] MEDS: *HR* OxyCODONE/APAP 5/325 TABLET PO PRN ×2 (07:49→19:52)
[2019-03-11] MEDS: Magnesium Oxide 400 MG TABLET PO SCH (07:49)
[2019-03-11] MEDS: predniSONE 20 MG TABLET PO SCH (07:49)
[2019-03-11] MEDS: Baclofen 10 MG TABLET PO SCH ×3 (07:50→19:52)
[2019-03-11] MEDS: Torsemide 20 MG TABLET PO SCH (07:50)
[2019-03-11] MEDS: Cholecalciferol (D-3) 1,000 UNIT (25MCG) TABLET PO SCH (07:50)
[2019-03-11] MEDS: Diltiazem CD (24hr) 180 MG CAPSULE PO SCH (07:50)
[2019-03-11] MEDS: Aspirin Enteric Coated 81 MG Tablet PO SCH (07:50)
[2019-03-11] MEDS: Sennosides 8.6 MG TABLET PO SCH ×2 (07:50→19:52)
[2019-03-11] MEDS: Ascorbic Acid 500 MG TABLET PO SCH ×2 (07:51→16:15)
[2019-03-11] MEDS: BOSUTINIB 500 MG PO SCH (07:53)
[2019-03-11] MEDS: Ondansetron ODT 4 MG TAB.RAPDIS PO PRN (07:56)
[2019-03-11] MEDS: Budesonide/Formoterol 160/4.5 1 PUFF INH IH SCH ×2 (11:06→20:24)
[2019-03-11] MEDS: Ipratropium/Albuterol Neb 3 ML IH PRN ×3 (11:07→23:59)
[2019-03-11] MEDS ORDERED: Diltiazem CD (24hr) 120 MG CAPSULE PO ONE (15:37)
[2019-03-11] MEDS: *HR* LORazepam 0.5 MG TABLET PO SCH (19:52)
[2019-03-12] MEDS: *HR* Heparin 5,000 UNIT/ML VIAL SQ SCH ×3 (04:29→19:49)
[2019-03-12 05:55] LABS: Basophils % 0.1 %; Eosinophils % 0.1 %; Hematocrit 24.7 % (37.5-50.1); Hemoglobin 7.5 g/dL (12.9-16.9); Immature Granulocytes % 1.2 % (0-4); Lymphocytes # 0.8 K/mcL (0.6-4.6); Lymphocytes % 4.6 %; Mean Corpuscular HGB Conc 30.4 g/dL (31.6-35.5); Mean Corpuscular Hemoglobin 29.9 pg (28.0-33.3); Mean Corpuscular Volume 98.4 fL (83.0-100.0); Mean Platelet Volume 11.7 fL (9.4-12.4); Monocytes # 0.7 K/mcL (0.0-1.3); Monocytes % 3.9 %; Neutrophils # 16.1 K/mcL (1.6-8.9); Platelet Count 132 K/mcL (140-400); Red Blood Count 2.51 M/mcL (4.19-5.50); Red Cell Distribution Width 19.1 % (11.5-14.5); Segmented Neutrophils % 90.1 %; White Blood Count 17.9 K/mcL (4.3-11.1)
[2019-03-12 06:17] LABS: % Iron Saturation 6 % (20-55); Calcium 8.8 mg/dL (8.6-10.3); Iron 16 mcg/dL (65-175); Potassium 4.5 mEq/L (3.5-5.1); Transferrin 195 mg/dL (203-362)
[2019-03-12 06:40] LABS: Folate 9.4 ng/mL (3.0-16.0)
[2019-03-12] MEDS: Budesonide/Formoterol 160/4.5 1 PUFF INH IH SCH ×2 (08:26→20:14)
[2019-03-12] MEDS: Ipratropium/Albuterol Neb 3 ML IH PRN ×2 (08:26→20:16)
[2019-03-12] MEDS: Diltiazem CD (24hr) 180 MG CAPSULE PO SCH (09:07)
[2019-03-12] MEDS: *HR* OxyCODONE/APAP 5/325 TABLET PO PRN ×2 (09:07→17:04)
[2019-03-12] MEDS: Ascorbic Acid 500 MG TABLET PO SCH ×2 (09:08→17:03)
[2019-03-12] MEDS: Cholecalciferol (D-3) 1,000 UNIT (25MCG) TABLET PO SCH (09:08)
[2019-03-12] MEDS: predniSONE 20 MG TABLET PO SCH (09:08)
[2019-03-12] MEDS: Sennosides 8.6 MG TABLET PO SCH ×2 (09:09→19:49)
[2019-03-12] MEDS: Magnesium Oxide 400 MG TABLET PO SCH (09:09)
[2019-03-12] MEDS: Baclofen 10 MG TABLET PO SCH ×3 (09:09→19:48)
[2019-03-12] MEDS: Torsemide 20 MG TABLET PO SCH (09:09)
[2019-03-12] MEDS: Aspirin Enteric Coated 81 MG Tablet PO SCH (09:09)
[2019-03-12] MEDS: hydrALAZINE 25 MG TABLET PO SCH ×2 (09:09→15:02)
[2019-03-12] MEDS: Nitroglycerin 0.4 MG TAB.SUBL SL PRN ×2 (09:49→09:54)
[2019-03-12] MEDS: *HR* LORazepam 0.5 MG TABLET PO SCH (19:48)
[2019-03-13] MEDS: hydrALAZINE 25 MG TABLET PO SCH ×4 (00:17→23:11)
[2019-03-13] MEDS: *HR* Heparin 5,000 UNIT/ML VIAL SQ SCH ×3 (04:39→23:11)
[2019-03-13 06:09] LABS: Basophils % 0.1 %; Hematocrit 23.6 % (37.5-50.1); Hemoglobin 7.1 g/dL (12.9-16.9); Immature Granulocytes % 1.6 % (0-4); Lymphocytes # 0.9 K/mcL (0.6-4.6); Lymphocytes % 6.2 %; Mean Corpuscular HGB Conc 30.1 g/dL (31.6-35.5); Mean Corpuscular Hemoglobin 29.8 pg (28.0-33.3); Mean Corpuscular Volume 99.2 fL (83.0-100.0); Mean Platelet Volume 11.4 fL (9.4-12.4); Monocytes # 0.4 K/mcL (0.0-1.3); Neutrophils # 12.3 K/mcL (1.6-8.9); Platelet Count 129 K/mcL (140-400); Red Blood Count 2.38 M/mcL (4.19-5.50); Red Cell Distribution Width 19.1 % (11.5-14.5); Segmented Neutrophils % 89.1 %; White Blood Count 13.8 K/mcL (4.3-11.1)
[2019-03-13] MEDS: Budesonide/Formoterol 160/4.5 1 PUFF INH IH SCH ×2 (07:23→19:53)
[2019-03-13 07:31] LABS: Calcium 9.2 mg/dL (8.6-10.3); Potassium 4.1 mEq/L (3.5-5.1)
[2019-03-13] MEDS: predniSONE 20 MG TABLET PO SCH (09:20)
[2019-03-13] MEDS: Cholecalciferol (D-3) 1,000 UNIT (25MCG) TABLET PO SCH (09:20)
[2019-03-13] MEDS: Baclofen 10 MG TABLET PO SCH ×3 (09:20→23:12)
[2019-03-13] MEDS: Magnesium Oxide 400 MG TABLET PO SCH (09:20)
[2019-03-13] MEDS: Aspirin Enteric Coated 81 MG Tablet PO SCH (09:20)
[2019-03-13] MEDS: Sennosides 8.6 MG TABLET PO SCH ×2 (09:20→23:13)
[2019-03-13] MEDS: Torsemide 20 MG TABLET PO SCH (09:20)
[2019-03-13] MEDS: Ascorbic Acid 500 MG TABLET PO SCH ×2 (09:20→17:24)
[2019-03-13] MEDS: Diltiazem CD (24hr) 180 MG CAPSULE PO SCH (09:21)
[2019-03-13] MEDS ORDERED: Furosemide 40 MG/4 ML VIAL IVP ONE (09:55)
[2019-03-13] MEDS ORDERED: 0.9 % Sodium Chloride 250 ML ONE ×2 (12:38→16:10)
[2019-03-13] MEDS: Ipratropium/Albuterol Neb 3 ML IH PRN (19:54)
[2019-03-13] MEDS: *HR* LORazepam 0.5 MG TABLET PO SCH (23:12)
[2019-03-13] MEDS: *HR* OxyCODONE/APAP 5/325 TABLET PO PRN (23:16)
[2019-03-14 05:40] LABS: Basophils % 0.1 %; Eosinophils % 0.1 %; Hematocrit 25.9 % (37.5-50.1); Hemoglobin 8.2 g/dL (12.9-16.9); Immature Granulocytes % 1.6 % (0-4); Lymphocytes # 0.8 K/mcL (0.6-4.6); Lymphocytes % 7.3 %; Mean Corpuscular HGB Conc 31.7 g/dL (31.6-35.5); Mean Corpuscular Volume 94.9 fL (83.0-100.0); Mean Platelet Volume 11.1 fL (9.4-12.4); Monocytes # 0.4 K/mcL (0.0-1.3); Monocytes % 3.7 %; Platelet Count 145 K/mcL (140-400); Red Blood Count 2.73 M/mcL (4.19-5.50); Red Cell Distribution Width 18.6 % (11.5-14.5); Segmented Neutrophils % 87.2 %; White Blood Count 11.4 K/mcL (4.3-11.1)
[2019-03-14 05:55] LABS: Calcium 9.6 mg/dL (8.6-10.3); Potassium 3.7 mEq/L (3.5-5.1)
[2019-03-14] MEDS: *HR* Heparin 5,000 UNIT/ML VIAL SQ SCH ×2 (06:24→16:06)
[2019-03-14] MEDS: Budesonide/Formoterol 160/4.5 1 PUFF INH IH SCH ×2 (07:33→20:38)
[2019-03-14] MEDS ORDERED: Furosemide 40 MG/4 ML VIAL IVP ONE (08:52)
[2019-03-14 09:27] LABS: INR 1.2; Prothrombin Time 13.1 Seconds (9.4-12.1)
[2019-03-14] MEDS: Diltiazem CD (24hr) 180 MG CAPSULE PO SCH (09:28)
[2019-03-14] MEDS: Baclofen 10 MG TABLET PO SCH ×3 (09:29→21:47)
[2019-03-14] MEDS: Aspirin Enteric Coated 81 MG Tablet PO SCH (09:29)
[2019-03-14] MEDS: hydrALAZINE 25 MG TABLET PO SCH ×2 (09:30→16:06)
[2019-03-14] MEDS: Magnesium Oxide 400 MG TABLET PO SCH (09:30)
[2019-03-14] MEDS: Ascorbic Acid 500 MG TABLET PO SCH ×2 (09:30→16:06)
[2019-03-14] MEDS: Cholecalciferol (D-3) 1,000 UNIT (25MCG) TABLET PO SCH (09:31)
[2019-03-14] MEDS: *HR* OxyCODONE/APAP 5/325 TABLET PO PRN ×2 (09:31→21:47)
[2019-03-14] MEDS: Sennosides 8.6 MG TABLET PO SCH ×2 (09:32→21:47)
[2019-03-14] MEDS: Ipratropium/Albuterol Neb 3 ML IH PRN (20:38)
[2019-03-14] MEDS: *HR* LORazepam 0.5 MG TABLET PO SCH (21:47)
[2019-03-15] MEDS: hydrALAZINE 25 MG TABLET PO SCH ×3 (02:10→16:16)
[2019-03-15 05:57] LABS: Calcium 9.5 mg/dL (8.6-10.3); Potassium 4.1 mEq/L (3.5-5.1)
[2019-03-15] MEDS ORDERED: *HR* Propofol 200 MG/20 ML VIAL IVP ONE (07:29)
[2019-03-15] MEDS ORDERED: Lidocaine -MPF 2% 2 ML VIAL ONE (07:29)
[2019-03-15] MEDS: Sennosides 8.6 MG TABLET PO SCH ×2 (07:58→22:13)
[2019-03-15] MEDS: Ascorbic Acid 500 MG TABLET PO SCH ×2 (07:58→16:16)
[2019-03-15] MEDS: Diltiazem CD (24hr) 180 MG CAPSULE PO SCH (07:58)
[2019-03-15] MEDS: Cholecalciferol (D-3) 1,000 UNIT (25MCG) TABLET PO SCH (07:59)
[2019-03-15] MEDS: Magnesium Oxide 400 MG TABLET PO SCH (07:59)
[2019-03-15] MEDS: Baclofen 10 MG TABLET PO SCH ×3 (07:59→22:13)
[2019-03-15] MEDS: Aspirin Enteric Coated 81 MG Tablet PO SCH (08:00)
[2019-03-15] MEDS: *HR* OxyCODONE/APAP 5/325 TABLET PO PRN ×2 (08:05→22:22)
[2019-03-15] MEDS: Budesonide/Formoterol 160/4.5 1 PUFF INH IH SCH ×2 (08:17→20:16)
[2019-03-15] MEDS: Ipratropium/Albuterol Neb 3 ML IH PRN ×3 (08:17→20:15)
[2019-03-15 09:16] LABS: Basophils % 0.2 %; Eosinophils % 0.3 %; Hematocrit 27.3 % (37.5-50.1); Hemoglobin 8.9 g/dL (12.9-16.9); Immature Granulocytes % 1.6 % (0-4); Lymphocytes # 0.7 K/mcL (0.6-4.6); Lymphocytes % 6.2 %; Mean Corpuscular HGB Conc 32.6 g/dL (31.6-35.5); Mean Corpuscular Hemoglobin 30.7 pg (28.0-33.3); Mean Corpuscular Volume 94.1 fL (83.0-100.0); Mean Platelet Volume 11.1 fL (9.4-12.4); Monocytes # 0.3 K/mcL (0.0-1.3); Monocytes % 2.8 %; Neutrophils # 9.4 K/mcL (1.6-8.9); Platelet Count 184 K/mcL (140-400); Red Cell Distribution Width 18.7 % (11.5-14.5); Segmented Neutrophils % 88.9 %; White Blood Count 10.6 K/mcL (4.3-11.1)
[2019-03-15] MEDS: Furosemide 40 MG/4 ML VIAL IVP SCH ×2 (11:39→16:16)
[2019-03-15] MEDS: Finasteride 5 MG TABLET PO SCH (13:51)
[2019-03-15] MEDS: *HR* LORazepam 0.5 MG TABLET PO SCH (22:13)
[2019-03-15] MEDS: *HR* Heparin 5,000 UNIT/ML VIAL SQ SCH (22:14)
[2019-03-16] MEDS: hydrALAZINE 25 MG TABLET PO SCH ×3 (00:20→16:04)
[2019-03-16 04:28] LABS: Basophils % 0.1 %; Eosinophils % 0.6 %; Hematocrit 26.5 % (37.5-50.1); Hemoglobin 8.6 g/dL (12.9-16.9); Immature Granulocytes % 1.8 % (0-4); Mean Corpuscular HGB Conc 32.5 g/dL (31.6-35.5); Mean Corpuscular Hemoglobin 30.6 pg (28.0-33.3); Mean Corpuscular Volume 94.3 fL (83.0-100.0); Monocytes % 2.9 %; Platelet Count 192 K/mcL (140-400); Red Blood Count 2.81 M/mcL (4.19-5.50); Red Cell Distribution Width 18.8 % (11.5-14.5); Segmented Neutrophils % 87.6 %; White Blood Count 9.1 K/mcL (4.3-11.1)
[2019-03-16 04:29] LABS: Eosinophils # 0.1 K/mcL (0.0-0.6); Lymphocytes # 0.6 K/mcL (0.6-4.6); Monocytes # 0.3 K/mcL (0.0-1.3)
[2019-03-16 04:46] LABS: Calcium 10.1 mg/dL (8.6-10.3); Potassium 3.6 mEq/L (3.5-5.1)
[2019-03-16] MEDS: *HR* Heparin 5,000 UNIT/ML VIAL SQ SCH ×3 (06:26→21:03)
[2019-03-16] MEDS: Budesonide/Formoterol 160/4.5 1 PUFF INH IH SCH ×2 (07:44→22:37)
[2019-03-16] MEDS: Ipratropium/Albuterol Neb 3 ML IH PRN (07:44)
[2019-03-16] MEDS: Aspirin Enteric Coated 81 MG Tablet PO SCH (09:12)
[2019-03-16] MEDS: Ascorbic Acid 500 MG TABLET PO SCH ×2 (09:12→16:04)
[2019-03-16] MEDS: Magnesium Oxide 400 MG TABLET PO SCH (09:12)
[2019-03-16] MEDS: Cholecalciferol (D-3) 1,000 UNIT (25MCG) TABLET PO SCH (09:12)
[2019-03-16] MEDS: Sennosides 8.6 MG TABLET PO SCH ×2 (09:12→21:01)
[2019-03-16] MEDS: Diltiazem CD (24hr) 180 MG CAPSULE PO SCH (09:12)
[2019-03-16] MEDS: Finasteride 5 MG TABLET PO SCH (09:12)
[2019-03-16] MEDS: Furosemide 40 MG/4 ML VIAL IVP SCH ×2 (09:13→16:04)
[2019-03-16] MEDS: *HR* OxyCODONE/APAP 5/325 TABLET PO PRN ×2 (09:13→21:02)
[2019-03-16] MEDS: Baclofen 10 MG TABLET PO SCH ×3 (09:13→21:02)
[2019-03-16] MEDS ORDERED: Finasteride 5 MG TABLET PO SCH (11:00)
[2019-03-16] MEDS: Ipratropium/Albuterol Neb 3 ML IH SCH ×3 (11:24→22:37)
[2019-03-16] MEDS ORDERED: Lactulose Oral Soln 20 GM/30 ML UDC PO ONE (14:38)
[2019-03-16] MEDS: MethylPREDNISolone 40 MG/ML VIAL IVP SCH (16:04)
[2019-03-16 18:26] LABS: ABG Base Excess 2 mEq/L (-2 to 3); ABG HCO3 25 mEq/L (21-27); ABG Oxygen Saturation 89 % (95-98); ABG PCO2 35 mmHg (35-45); ABG PH 7.46 pH Units (7.32-7.45); ABG PO2 54 mmHg (85-104); ABG TCO2 26 mEq/L (20-26); Blood Gas Modality BiLevel
[2019-03-17] MEDS: hydrALAZINE 25 MG TABLET PO SCH ×4 (03:33→23:59)
[2019-03-17] MEDS: Ipratropium/Albuterol Neb 3 ML IH SCH ×4 (04:06→22:15)
[2019-03-17 05:08] LABS: Hematocrit 26.3 % (37.5-50.1); Hemoglobin 8.2 g/dL (12.9-16.9)
[2019-03-17 05:28] LABS: Calcium 10.4 mg/dL (8.6-10.3); Potassium 4.3 mEq/L (3.5-5.1)
[2019-03-17] MEDS: *HR* Heparin 5,000 UNIT/ML VIAL SQ SCH ×3 (06:39→20:43)
[2019-03-17] MEDS: MethylPREDNISolone 40 MG/ML VIAL IVP SCH ×2 (06:39→16:36)
[2019-03-17] MEDS: Finasteride 5 MG TABLET PO SCH (07:58)
[2019-03-17] MEDS: Ascorbic Acid 500 MG TABLET PO SCH ×2 (07:58→16:35)
[2019-03-17] MEDS: Magnesium Oxide 400 MG TABLET PO SCH (07:58)
[2019-03-17] MEDS: Diltiazem CD (24hr) 180 MG CAPSULE PO SCH (07:59)
[2019-03-17] MEDS: Sennosides 8.6 MG TABLET PO SCH ×2 (08:00→20:43)
[2019-03-17] MEDS: Baclofen 10 MG TABLET PO SCH ×3 (08:00→20:43)
[2019-03-17] MEDS: Cholecalciferol (D-3) 1,000 UNIT (25MCG) TABLET PO SCH (08:00)
[2019-03-17] MEDS: Aspirin Enteric Coated 81 MG Tablet PO SCH (08:00)
[2019-03-17] MEDS: Furosemide 40 MG/4 ML VIAL IVP SCH ×2 (08:01→16:35)
[2019-03-17] MEDS: *HR* OxyCODONE/APAP 5/325 TABLET PO PRN ×3 (08:18→22:51)
[2019-03-17] MEDS: Budesonide/Formoterol 160/4.5 1 PUFF INH IH SCH ×2 (10:55→22:16)
[2019-03-17 15:27] LABS: Adenovirus Not Detected (Not Detect); Bordetella Pertussis Not Detected (Not Detect); Chlamydophila pneumoniae Not Detected (Not Detect); Coronavirus 229E Not Detected (Not Detect); Coronavirus HKU1 Not Detected (Not Detect); Coronavirus NL63 Not Detected (Not Detect); Coronavirus OC43 Not Detected (Not Detect); Human Metapneumovirus Not Detected (Not Detect); Human Rhinovirus/Enterovirus Not Detected (Not Detect); Influenza A Subtype 2009 H1 Not Detected (Not Detect); Influenza A Untypeable Not Detected (Not Detect); Influenza B Not Detected (Not Detect); Mycoplasma pneumoniae Not Detected (Not Detect); Parainfluenza Virus 1 Not Detected (Not Detect); Parainfluenza Virus 2 Not Detected (Not Detect); Parainfluenza Virus 3 Not Detected (Not Detect); Parainfluenza Virus 4 Not Detected (Not Detect); Respiratory Syncytial Virus Not Detected (Not Detect)
[2019-03-17] MEDS: Menthol 9.1 MG LOZENGE PO PRN ×2 (16:36→21:01)
[2019-03-18] MEDS: Menthol 9.1 MG LOZENGE PO PRN
[2019-03-18] MEDS: Ipratropium/Albuterol Neb 3 ML IH SCH ×5 (03:46→20:46)
[2019-03-18] MEDS: *HR* Heparin 5,000 UNIT/ML VIAL SQ SCH ×3 (05:19→21:21)
[2019-03-18] MEDS: MethylPREDNISolone 40 MG/ML VIAL IVP SCH ×2 (05:19→16:34)
[2019-03-18 06:49] LABS: Hematocrit 25.8 % (37.5-50.1); Hemoglobin 8.1 g/dL (12.9-16.9)
[2019-03-18 07:09] LABS: Calcium 11.1 mg/dL (8.6-10.3); Potassium 4.4 mEq/L (3.5-5.1)
[2019-03-18] MEDS: Furosemide 40 MG/4 ML VIAL IVP SCH (08:49)
[2019-03-18] MEDS: Cholecalciferol (D-3) 1,000 UNIT (25MCG) TABLET PO SCH (08:49)
[2019-03-18] MEDS: Ascorbic Acid 500 MG TABLET PO SCH ×2 (08:49→16:33)
[2019-03-18] MEDS: Sennosides 8.6 MG TABLET PO SCH ×2 (08:49→21:21)
[2019-03-18] MEDS: Diltiazem CD (24hr) 180 MG CAPSULE PO SCH (08:50)
[2019-03-18] MEDS: Aspirin Enteric Coated 81 MG Tablet PO SCH (08:50)
[2019-03-18] MEDS: Baclofen 10 MG TABLET PO SCH ×3 (08:50→21:21)
[2019-03-18] MEDS: Magnesium Oxide 400 MG TABLET PO SCH (08:50)
[2019-03-18] MEDS: hydrALAZINE 25 MG TABLET PO SCH ×2 (08:50→15:36)
[2019-03-18] MEDS: Finasteride 5 MG TABLET PO SCH (08:50)
[2019-03-18] MEDS: *HR* OxyCODONE/APAP 5/325 TABLET PO PRN ×2 (08:52→15:36)
[2019-03-18] MEDS: Budesonide/Formoterol 160/4.5 1 PUFF INH IH SCH ×3 (11:08→20:45)
[2019-03-18] MEDS ORDERED: *HR* Labetalol 20 MG/4 ML SYRINGE IVP ONE (13:34)
[2019-03-18] MEDS: Acetaminophen 325 MG TABLET PO PRN (21:22)
[2019-03-18] MEDS: GuaiFENesin Liq 200 MG/10 ML UDC PO PRN (21:22)
[2019-03-19] MEDS: *HR* OxyCODONE/APAP 5/325 TABLET PO PRN ×3 (00:04→21:31)
[2019-03-19] MEDS: hydrALAZINE 25 MG TABLET PO SCH ×3 (00:05→15:45)
[2019-03-19] MEDS: Ipratropium/Albuterol Neb 3 ML IH SCH ×4 (03:00→21:53)
[2019-03-19 04:54] LABS: Basophils % 0.1 %; Hematocrit 26.1 % (37.5-50.1); Hemoglobin 8.3 g/dL (12.9-16.9); Immature Granulocytes % 0.9 % (0-4); Lymphocytes # 0.3 K/mcL (0.6-4.6); Lymphocytes % 2.3 %; Mean Corpuscular HGB Conc 31.8 g/dL (31.6-35.5); Mean Corpuscular Hemoglobin 30.3 pg (28.0-33.3); Mean Corpuscular Volume 95.3 fL (83.0-100.0); Mean Platelet Volume 10.7 fL (9.4-12.4); Monocytes # 0.2 K/mcL (0.0-1.3); Monocytes % 1.4 %; Neutrophils # 10.2 K/mcL (1.6-8.9); Platelet Count 255 K/mcL (140-400); Red Blood Count 2.74 M/mcL (4.19-5.50); Red Cell Distribution Width 17.8 % (11.5-14.5); Segmented Neutrophils % 95.3 %; White Blood Count 10.7 K/mcL (4.3-11.1)
[2019-03-19 05:12] LABS: Calcium 12.6 mg/dL (8.6-10.3); Potassium 5.2 mEq/L (3.5-5.1)
[2019-03-19] MEDS: *HR* Heparin 5,000 UNIT/ML VIAL SQ SCH ×3 (05:33→21:28)
[2019-03-19] MEDS: MethylPREDNISolone 40 MG/ML VIAL IVP SCH ×2 (05:33→16:55)
[2019-03-19] MEDS: Aspirin Enteric Coated 81 MG Tablet PO SCH (07:39)
[2019-03-19] MEDS: Baclofen 10 MG TABLET PO SCH ×3 (07:39→21:28)
[2019-03-19] MEDS: Magnesium Oxide 400 MG TABLET PO SCH (07:39)
[2019-03-19] MEDS: Diltiazem CD (24hr) 180 MG CAPSULE PO SCH (07:39)
[2019-03-19] MEDS: Finasteride 5 MG TABLET PO SCH (07:39)
[2019-03-19] MEDS: Cholecalciferol (D-3) 1,000 UNIT (25MCG) TABLET PO SCH (07:39)
[2019-03-19] MEDS: Ascorbic Acid 500 MG TABLET PO SCH ×2 (07:40→15:45)
[2019-03-19] MEDS: Sennosides 8.6 MG TABLET PO SCH ×2 (07:46→21:29)
[2019-03-19] MEDS: Budesonide/Formoterol 160/4.5 1 PUFF INH IH SCH ×2 (10:55→21:53)
[2019-03-20] MEDS: hydrALAZINE 25 MG TABLET PO SCH ×4 (00:37→22:08)
[2019-03-20] MEDS: Ipratropium/Albuterol Neb 3 ML IH SCH ×4 (04:16→22:27)
[2019-03-20] MEDS: *HR* Heparin 5,000 UNIT/ML VIAL SQ SCH ×3 (05:10→22:07)
[2019-03-20] MEDS: MethylPREDNISolone 40 MG/ML VIAL IVP SCH ×2 (05:10→16:44)
[2019-03-20 06:51] LABS: Basophils % 0.1 %; Hemoglobin 8.6 g/dL (12.9-16.9); Immature Granulocytes % 0.9 % (0-4); Lymphocytes # 0.3 K/mcL (0.6-4.6); Lymphocytes % 2.3 %; Mean Corpuscular HGB Conc 30.7 g/dL (31.6-35.5); Mean Corpuscular Hemoglobin 30.1 pg (28.0-33.3); Mean Corpuscular Volume 97.9 fL (83.0-100.0); Mean Platelet Volume 11.5 fL (9.4-12.4); Monocytes # 0.2 K/mcL (0.0-1.3); Monocytes % 1.6 %; Neutrophils # 11.7 K/mcL (1.6-8.9); Platelet Count 257 K/mcL (140-400); Red Blood Count 2.86 M/mcL (4.19-5.50); Red Cell Distribution Width 17.5 % (11.5-14.5); Segmented Neutrophils % 95.1 %; White Blood Count 12.3 K/mcL (4.3-11.1)
[2019-03-20 07:15] LABS: Calcium 13.6 mg/dL (8.6-10.3); Magnesium 2.5 mg/dL (1.6-2.6); Potassium 5.3 mEq/L (3.5-5.1)
[2019-03-20] MEDS ORDERED: 0.9 % Sodium Chloride 1,000 ML IVC ONE (07:26)
[2019-03-20] MEDS ORDERED: Furosemide 40 MG/4 ML VIAL IVP ONE ×2 (07:27→10:03)
[2019-03-20] MEDS: Aspirin Enteric Coated 81 MG Tablet PO SCH (08:01)
[2019-03-20] MEDS: Finasteride 5 MG TABLET PO SCH (08:01)
[2019-03-20] MEDS: Baclofen 10 MG TABLET PO SCH ×3 (08:01→22:09)
[2019-03-20] MEDS: Diltiazem CD (24hr) 180 MG CAPSULE PO SCH (08:01)
[2019-03-20] MEDS: Magnesium Oxide 400 MG TABLET PO SCH (08:02)
[2019-03-20] MEDS: Ascorbic Acid 500 MG TABLET PO SCH ×2 (08:02→16:39)
[2019-03-20] MEDS: Sennosides 8.6 MG TABLET PO SCH ×2 (08:02→22:07)
[2019-03-20] MEDS: *HR* OxyCODONE/APAP 5/325 TABLET PO PRN ×2 (08:22→22:08)
[2019-03-20] MEDS: Budesonide/Formoterol 160/4.5 1 PUFF INH IH SCH ×2 (10:48→22:27)
[2019-03-20] MEDS: Menthol 9.1 MG LOZENGE PO PRN (20:16)
[2019-03-21] MEDS: Ipratropium/Albuterol Neb 3 ML IH SCH ×4 (03:37→22:37)
[2019-03-21] MEDS: *HR* Heparin 5,000 UNIT/ML VIAL SQ SCH ×3 (06:09→20:51)
[2019-03-21] MEDS: MethylPREDNISolone 40 MG/ML VIAL IVP SCH ×2 (06:09→17:28)
[2019-03-21 07:04] LABS: Basophils % 0.1 %; Hematocrit 28.8 % (37.5-50.1); Hemoglobin 9.1 g/dL (12.9-16.9); Immature Granulocytes % 0.8 % (0-4); Lymphocytes # 0.4 K/mcL (0.6-4.6); Lymphocytes % 2.9 %; Mean Corpuscular HGB Conc 31.6 g/dL (31.6-35.5); Mean Corpuscular Hemoglobin 29.6 pg (28.0-33.3); Mean Corpuscular Volume 93.8 fL (83.0-100.0); Monocytes # 0.4 K/mcL (0.0-1.3); Monocytes % 2.4 %; Neutrophils # 13.4 K/mcL (1.6-8.9); Platelet Count 290 K/mcL (140-400); Red Blood Count 3.07 M/mcL (4.19-5.50); Red Cell Distribution Width 17.5 % (11.5-14.5); Segmented Neutrophils % 93.8 %; White Blood Count 14.3 K/mcL (4.3-11.1)
[2019-03-21 07:22] LABS: BUN/Creatinine Ratio 59 (6-26); Blood Urea Nitrogen 78 mg/dL (8-23); Calcium 12.3 mg/dL (8.6-10.3); Carbon Dioxide 32 mEq/L (23-29); Chloride 102 mEq/L (98-107); Glucose 101 mg/dL (70-105); Magnesium 2.4 mg/dL (1.6-2.6); Osmolality,Calculated 313 (280-300); Potassium 5.4 mEq/L (3.5-5.1); Sodium 140 mEq/L (136-145); eGFR For African Americans > 60 (> 60); eGFR For Non-African Americans 54 (> 60)
[2019-03-21 07:45] LABS: Thyroid Stimulating Hormone 0.737 mcIU/mL (0.340-5.600)
[2019-03-21] MEDS ORDERED: 0.9 % Sodium Chloride 1,000 ML IV ONE (07:50)
[2019-03-21] MEDS: Sennosides 8.6 MG TABLET PO SCH ×2 (08:24→20:51)
[2019-03-21] MEDS: *HR* OxyCODONE/APAP 5/325 TABLET PO PRN ×3 (08:25→20:51)
[2019-03-21] MEDS: Aspirin Enteric Coated 81 MG Tablet PO SCH (08:25)
[2019-03-21] MEDS: Ascorbic Acid 500 MG TABLET PO SCH ×2 (08:25→15:59)
[2019-03-21] MEDS: Diltiazem CD (24hr) 180 MG CAPSULE PO SCH (08:25)
[2019-03-21] MEDS: Baclofen 10 MG TABLET PO SCH ×3 (08:26→20:51)
[2019-03-21] MEDS: hydrALAZINE 25 MG TABLET PO SCH ×2 (08:27→15:59)
[2019-03-21] MEDS: Finasteride 5 MG TABLET PO SCH (08:27)
[2019-03-21] MEDS: Magnesium Oxide 400 MG TABLET PO SCH (08:27)
[2019-03-21] MEDS: Menthol 9.1 MG LOZENGE PO PRN (08:33)
[2019-03-21] MEDS: Budesonide/Formoterol 160/4.5 1 PUFF INH IH SCH ×2 (09:57→22:37)
[2019-03-21] MEDS ORDERED: Furosemide 40 MG/4 ML VIAL IVP ONE (12:00)
[2019-03-21] MEDS: Lactulose Oral Soln 20 GM/30 ML UDC PO ONE (18:50)
[2019-03-21 19:18] LABS: Calcium 11.5 mg/dL (8.6-10.3); Potassium 5.1 mEq/L (3.5-5.1)
[2019-03-21] MEDS ORDERED: Pamidronate 30 MG in 0.9 % Sodium Chloride 500 ML IVPB ONE (20:00)
[2019-03-21] MEDS: Furosemide 40 MG/4 ML VIAL IVP SCH (20:56)
[2019-03-22] MEDS: hydrALAZINE 25 MG TABLET PO SCH (00:46)
[2019-03-22] MEDS: Ipratropium/Albuterol Neb 3 ML IH SCH ×2 (04:00→22:12)
[2019-03-22] MEDS: MethylPREDNISolone 40 MG/ML VIAL IVP SCH (05:44)
[2019-03-22] MEDS: *HR* Heparin 5,000 UNIT/ML VIAL SQ SCH ×2 (05:44→22:01)
[2019-03-22 06:55] LABS: Basophils % 0.1 %; Hematocrit 28.3 % (37.5-50.1); Hemoglobin 9.1 g/dL (12.9-16.9); Immature Granulocytes % 0.9 % (0-4); Lymphocytes # 0.4 K/mcL (0.6-4.6); Lymphocytes % 2.7 %; Mean Corpuscular HGB Conc 32.2 g/dL (31.6-35.5); Mean Corpuscular Hemoglobin 30.1 pg (28.0-33.3); Mean Corpuscular Volume 93.7 fL (83.0-100.0); Monocytes # 0.4 K/mcL (0.0-1.3); Monocytes % 2.8 %; Neutrophils # 12.1 K/mcL (1.6-8.9); Platelet Count 308 K/mcL (140-400); Red Blood Count 3.02 M/mcL (4.19-5.50); Red Cell Distribution Width 17.5 % (11.5-14.5); Segmented Neutrophils % 93.5 %; White Blood Count 12.9 K/mcL (4.3-11.1)
[2019-03-22 07:12] LABS: BUN/Creatinine Ratio 56 (6-26); Blood Urea Nitrogen 79 mg/dL (8-23); Calcium 11.5 mg/dL (8.6-10.3); Carbon Dioxide 33 mEq/L (23-29); Chloride 100 mEq/L (98-107); Glucose 113 mg/dL (70-105); Magnesium 2.4 mg/dL (1.6-2.6); Osmolality,Calculated 314 (280-300); Potassium 4.7 mEq/L (3.5-5.1); Sodium 140 mEq/L (136-145); eGFR For African Americans > 60 (> 60); eGFR For Non-African Americans 50 (> 60)
[2019-03-22] MEDS ORDERED: Lactulose Oral Soln 20 GM/30 ML UDC ONE (11:43)
[2019-03-22] MEDS: Sennosides 8.6 MG TABLET PO SCH (21:58)
[2019-03-22] MEDS: Baclofen 10 MG TABLET PO SCH (21:59)
[2019-03-22] MEDS: Budesonide/Formoterol 160/4.5 1 PUFF INH IH SCH (22:12)
[2019-03-23] MEDS: hydrALAZINE 25 MG TABLET PO SCH ×4 (01:04→16:47)
[2019-03-23] MEDS: Ascorbic Acid 500 MG TABLET PO SCH ×3 (01:57→16:47)
[2019-03-23] MEDS: Furosemide 40 MG/4 ML VIAL IVP SCH ×3 (01:57→16:47)
[2019-03-23] MEDS: Baclofen 10 MG TABLET PO SCH ×5 (01:58→21:33)
[2019-03-23] MEDS: Diltiazem CD (24hr) 180 MG CAPSULE PO SCH ×2 (01:58→07:51)
[2019-03-23] MEDS: Aspirin Enteric Coated 81 MG Tablet PO SCH ×2 (01:58→07:51)
[2019-03-23] MEDS: Magnesium Oxide 400 MG TABLET PO SCH ×2 (01:59→07:51)
[2019-03-23] MEDS: Sennosides 8.6 MG TABLET PO SCH ×3 (01:59→21:34)
[2019-03-23] MEDS: Finasteride 5 MG TABLET PO SCH ×2 (01:59→07:51)
[2019-03-23] MEDS: Budesonide/Formoterol 160/4.5 1 PUFF INH IH SCH ×3 (02:00→22:08)
[2019-03-23] MEDS: Ipratropium/Albuterol Neb 3 ML IH SCH ×5 (02:00→22:08)
[2019-03-23] MEDS: MethylPREDNISolone 40 MG/ML VIAL IVP SCH ×2 (02:01→06:30)
[2019-03-23] MEDS: *HR* Heparin 5,000 UNIT/ML VIAL SQ SCH ×4 (02:01→21:32)
[2019-03-23 07:36] LABS: Hematocrit 27.6 % (37.5-50.1); Hemoglobin 8.8 g/dL (12.9-16.9); Immature Granulocytes % 1.2 % (0-4); Lymphocytes # 0.4 K/mcL (0.6-4.6); Lymphocytes % 3.3 %; Mean Corpuscular HGB Conc 31.9 g/dL (31.6-35.5); Mean Corpuscular Hemoglobin 29.8 pg (28.0-33.3); Mean Corpuscular Volume 93.6 fL (83.0-100.0); Mean Platelet Volume 11.1 fL (9.4-12.4); Monocytes # 0.3 K/mcL (0.0-1.3); Monocytes % 2.8 %; Neutrophils # 10.3 K/mcL (1.6-8.9); Platelet Count 258 K/mcL (140-400); Red Blood Count 2.95 M/mcL (4.19-5.50); Red Cell Distribution Width 17.7 % (11.5-14.5); Segmented Neutrophils % 92.7 %; White Blood Count 11.1 K/mcL (4.3-11.1)
[2019-03-23] MEDS: predniSONE 20 MG TABLET PO SCH (07:51)
[2019-03-23 07:57] LABS: BUN/Creatinine Ratio 56 (6-26); Blood Urea Nitrogen 78 mg/dL (8-23); Calcium 10.7 mg/dL (8.6-10.3); Carbon Dioxide 34 mEq/L (23-29); Chloride 99 mEq/L (98-107); Glucose 123 mg/dL (70-105); Magnesium 2.4 mg/dL (1.6-2.6); Osmolality,Calculated 315 (280-300); Potassium 4.2 mEq/L (3.5-5.1); Sodium 140 mEq/L (136-145); eGFR For African Americans > 60 (> 60); eGFR For Non-African Americans 51 (> 60)
[2019-03-23] MEDS: GuaiFENesin Liq 200 MG/10 ML UDC PO PRN (07:59)
[2019-03-23] MEDS: *HR* OxyCODONE/APAP 5/325 TABLET PO PRN ×2 (07:59→16:56)
[2019-03-23] MEDS ORDERED: Lactulose Oral Soln 20 GM/30 ML UDC PO ONE (15:42)
[2019-03-24] MEDS: Ipratropium/Albuterol Neb 3 ML IH SCH ×4 (04:47→22:41)
[2019-03-24 05:37] LABS: Basophils % 0.1 %; Hematocrit 26.9 % (37.5-50.1); Hemoglobin 8.5 g/dL (12.9-16.9); Immature Granulocytes % 1.2 % (0-4); Lymphocytes # 0.5 K/mcL (0.6-4.6); Lymphocytes % 4.6 %; Mean Corpuscular HGB Conc 31.6 g/dL (31.6-35.5); Mean Corpuscular Hemoglobin 29.8 pg (28.0-33.3); Mean Corpuscular Volume 94.4 fL (83.0-100.0); Mean Platelet Volume 11.5 fL (9.4-12.4); Monocytes # 0.6 K/mcL (0.0-1.3); Monocytes % 5.6 %; Neutrophils # 9.1 K/mcL (1.6-8.9); Platelet Count 254 K/mcL (140-400); Red Blood Count 2.85 M/mcL (4.19-5.50); Red Cell Distribution Width 17.8 % (11.5-14.5); Segmented Neutrophils % 88.5 %; White Blood Count 10.2 K/mcL (4.3-11.1)
[2019-03-24 05:59] LABS: Calcium 9.9 mg/dL (8.6-10.3); Magnesium 2.5 mg/dL (1.6-2.6); Potassium 3.8 mEq/L (3.5-5.1)
[2019-03-24] MEDS: hydrALAZINE 25 MG TABLET PO SCH ×3 (06:07→16:21)
[2019-03-24] MEDS: *HR* Heparin 5,000 UNIT/ML VIAL SQ SCH ×3 (06:13→22:22)
[2019-03-24] MEDS: *HR* OxyCODONE/APAP 5/325 TABLET PO PRN (06:30)
[2019-03-24] MEDS: Ascorbic Acid 500 MG TABLET PO SCH ×2 (10:37→16:09)
[2019-03-24] MEDS: Baclofen 10 MG TABLET PO SCH ×3 (10:37→20:37)
[2019-03-24] MEDS: Diltiazem CD (24hr) 180 MG CAPSULE PO SCH (10:37)
[2019-03-24] MEDS: Finasteride 5 MG TABLET PO SCH (10:37)
[2019-03-24] MEDS: Magnesium Oxide 400 MG TABLET PO SCH (10:38)
[2019-03-24] MEDS: Sennosides 8.6 MG TABLET PO SCH ×2 (10:38→20:37)
[2019-03-24] MEDS: Aspirin Enteric Coated 81 MG Tablet PO SCH (10:38)
[2019-03-24] MEDS: predniSONE 20 MG TABLET PO SCH (10:38)
[2019-03-24] MEDS: Furosemide 40 MG/4 ML VIAL IVP SCH ×2 (10:39→16:09)
[2019-03-24] MEDS: Budesonide/Formoterol 160/4.5 1 PUFF INH IH SCH ×2 (10:49→22:41)
[2019-03-24] MEDS ORDERED: Lactulose Oral Soln 20 GM/30 ML UDC PO ONE (12:40)
[2019-03-24] MEDS: Lactulose Oral Soln 20 GM/30 ML UDC PO ONE (16:09)
[2019-03-24] MEDS: Acetaminophen 325 MG TABLET PO PRN (20:37)
[2019-03-24] MEDS ORDERED: traMADol 50 MG TABLET PO ONE (20:53)
[2019-03-24] MEDS: Menthol 9.1 MG LOZENGE PO PRN (22:23)
[2019-03-25] MEDS: hydrALAZINE 25 MG TABLET PO SCH ×3 (00:52→15:38)
[2019-03-25] MEDS: Menthol 9.1 MG LOZENGE PO PRN ×2 (03:31→23:19)
[2019-03-25] MEDS: Ipratropium/Albuterol Neb 3 ML IH SCH ×4 (04:03→22:34)
[2019-03-25] MEDS ORDERED: *HR* OxyCODONE/APAP 5/325 TABLET PO ONE (04:28)
[2019-03-25] MEDS: *HR* Heparin 5,000 UNIT/ML VIAL SQ SCH ×3 (04:50→20:12)
[2019-03-25 07:14] LABS: Hematocrit 25.9 % (37.5-50.1); Hemoglobin 7.9 g/dL (12.9-16.9); Immature Granulocytes % 1.6 % (0-4); Lymphocytes # 0.7 K/mcL (0.6-4.6); Lymphocytes % 6.1 %; Mean Corpuscular HGB Conc 30.5 g/dL (31.6-35.5); Mean Corpuscular Hemoglobin 29.9 pg (28.0-33.3); Mean Corpuscular Volume 98.1 fL (83.0-100.0); Mean Platelet Volume 12.1 fL (9.4-12.4); Monocytes # 0.5 K/mcL (0.0-1.3); Monocytes % 4.6 %; Neutrophils # 10.3 K/mcL (1.6-8.9); Platelet Count 236 K/mcL (140-400); Red Blood Count 2.64 M/mcL (4.19-5.50); Red Cell Distribution Width 18.2 % (11.5-14.5); Segmented Neutrophils % 87.7 %; White Blood Count 11.8 K/mcL (4.3-11.1)
[2019-03-25 07:56] LABS: BUN/Creatinine Ratio 54 (6-26); Blood Urea Nitrogen 76 mg/dL (8-23); Carbon Dioxide 31 mEq/L (23-29); Chloride 96 mEq/L (98-107); Glucose 111 mg/dL (70-105); Magnesium 2.3 mg/dL (1.6-2.6); Osmolality,Calculated 305 (280-300); Potassium 3.7 mEq/L (3.5-5.1); Sodium 136 mEq/L (136-145); eGFR For African Americans > 60 (> 60); eGFR For Non-African Americans 50 (> 60)
[2019-03-25] MEDS: Diltiazem CD (24hr) 180 MG CAPSULE PO SCH (08:04)
[2019-03-25] MEDS: Furosemide 40 MG/4 ML VIAL IVP SCH ×2 (08:04→17:05)
[2019-03-25] MEDS: Baclofen 10 MG TABLET PO SCH ×3 (08:04→20:02)
[2019-03-25] MEDS: Finasteride 5 MG TABLET PO SCH (08:04)
[2019-03-25] MEDS: Aspirin Enteric Coated 81 MG Tablet PO SCH (08:05)
[2019-03-25] MEDS: Magnesium Oxide 400 MG TABLET PO SCH (08:05)
[2019-03-25] MEDS: Sennosides 8.6 MG TABLET PO SCH ×2 (08:06→20:02)
[2019-03-25] MEDS: predniSONE 20 MG TABLET PO SCH (08:06)
[2019-03-25] MEDS: Ascorbic Acid 500 MG TABLET PO SCH ×2 (08:06→17:06)
[2019-03-25] MEDS: Budesonide/Formoterol 160/4.5 1 PUFF INH IH SCH ×2 (11:21→22:34)
[2019-03-25] MEDS: *HR* OxyCODONE/APAP 5/325 TABLET PO PRN ×2 (12:26→20:02)
[2019-03-25] MEDS ORDERED: Trolamine Salicylate/Aloe Vera 85 APPL/85 GM TUBE TP PRN (23:33)
[2019-03-26] MEDS: hydrALAZINE 25 MG TABLET PO SCH ×3 (00:15→17:07)
[2019-03-26] MEDS ORDERED: Methyl Salicylate/Menthol 28 GM TUBE TP PRN (00:38)
[2019-03-26] MEDS: Methyl Salicylate/Menthol 57 APPL/57 GM TUBE TP PRN (01:17)
[2019-03-26] MEDS: Menthol 9.1 MG LOZENGE PO PRN (01:17)
[2019-03-26] MEDS: Ipratropium/Albuterol Neb 3 ML IH SCH ×4 (03:46→22:04)
[2019-03-26] MEDS: *HR* Heparin 5,000 UNIT/ML VIAL SQ SCH ×3 (05:03→21:05)
[2019-03-26] MEDS: *HR* OxyCODONE/APAP 5/325 TABLET PO PRN ×2 (05:04→17:17)
[2019-03-26 05:24] LABS: Basophils % 0.1 %; Immature Granulocytes % 1.4 % (0-4); Lymphocytes # 0.7 K/mcL (0.6-4.6); Mean Corpuscular HGB Conc 30.8 g/dL (31.6-35.5); Mean Corpuscular Volume 97.4 fL (83.0-100.0); Mean Platelet Volume 11.9 fL (9.4-12.4); Monocytes # 0.4 K/mcL (0.0-1.3); Monocytes % 3.7 %; Neutrophils # 10.2 K/mcL (1.6-8.9); Platelet Count 230 K/mcL (140-400); Red Blood Count 2.67 M/mcL (4.19-5.50); Red Cell Distribution Width 18.5 % (11.5-14.5); Segmented Neutrophils % 88.8 %; White Blood Count 11.5 K/mcL (4.3-11.1)
[2019-03-26 05:39] LABS: Calcium 8.6 mg/dL (8.6-10.3); Magnesium 2.3 mg/dL (1.6-2.6); Potassium 3.6 mEq/L (3.5-5.1)
[2019-03-26] MEDS: Ondansetron ODT 4 MG TAB.RAPDIS PO PRN (08:38)
[2019-03-26] MEDS: Furosemide 40 MG/4 ML VIAL IVP SCH ×2 (08:39→17:08)
[2019-03-26] MEDS: Diltiazem CD (24hr) 180 MG CAPSULE PO SCH (08:39)
[2019-03-26] MEDS: Budesonide/Formoterol 160/4.5 1 PUFF INH IH SCH ×2 (10:53→19:43)
[2019-03-26] MEDS: predniSONE 20 MG TABLET PO SCH (11:20)
[2019-03-26] MEDS: Ascorbic Acid 500 MG TABLET PO SCH ×2 (11:20→17:07)
[2019-03-26] MEDS: Finasteride 5 MG TABLET PO SCH (11:20)
[2019-03-26] MEDS: Aspirin Enteric Coated 81 MG Tablet PO SCH (11:20)
[2019-03-26] MEDS: Magnesium Oxide 400 MG TABLET PO SCH (11:20)
[2019-03-26] MEDS: Baclofen 10 MG TABLET PO SCH ×3 (11:21→21:06)
[2019-03-26] MEDS: Sennosides 8.6 MG TABLET PO SCH ×2 (11:21→21:06)
[2019-03-27] MEDS: Menthol 9.1 MG LOZENGE PO PRN (00:06)
[2019-03-27] MEDS: hydrALAZINE 25 MG TABLET PO SCH ×3 (01:08→15:53)
[2019-03-27] MEDS: *HR* OxyCODONE/APAP 5/325 TABLET PO PRN (01:08)
[2019-03-27 03:18] LABS: Calcium 8.5 mg/dL (8.6-10.3); Magnesium 2.5 mg/dL (1.6-2.6); Potassium 4.2 mEq/L (3.5-5.1)
[2019-03-27 03:21] LABS: Basophils % 0.1 %; Hematocrit 26.9 % (37.5-50.1); Hemoglobin 8.2 g/dL (12.9-16.9); Immature Granulocytes % 1.9 % (0-4); Lymphocytes # 0.3 K/mcL (0.6-4.6); Lymphocytes % 2.8 %; Mean Corpuscular HGB Conc 30.5 g/dL (31.6-35.5); Mean Corpuscular Hemoglobin 29.6 pg (28.0-33.3); Mean Corpuscular Volume 97.1 fL (83.0-100.0); Mean Platelet Volume 12.5 fL (9.4-12.4); Monocytes # 0.3 K/mcL (0.0-1.3); Monocytes % 2.9 %; Neutrophils # 9.6 K/mcL (1.6-8.9); Platelet Count 239 K/mcL (140-400); Red Blood Count 2.77 M/mcL (4.19-5.50); Red Cell Distribution Width 18.5 % (11.5-14.5); Segmented Neutrophils % 92.3 %; White Blood Count 10.4 K/mcL (4.3-11.1)
[2019-03-27] MEDS: Ipratropium/Albuterol Neb 3 ML IH SCH ×4 (03:49→22:05)
[2019-03-27] MEDS: *HR* Heparin 5,000 UNIT/ML VIAL SQ SCH ×3 (05:14→21:33)
[2019-03-27] MEDS ORDERED: Acetaminophen IV 500 MG/50 ML INFUS..BTL IVPB ONE (05:25)
[2019-03-27] MEDS: Furosemide 40 MG/4 ML VIAL IVP SCH ×2 (09:25→16:00)
[2019-03-27] MEDS: predniSONE 20 MG TABLET PO SCH (09:26)
[2019-03-27] MEDS: Finasteride 5 MG TABLET PO SCH (09:27)
[2019-03-27] MEDS: Baclofen 10 MG TABLET PO SCH ×3 (09:27→20:04)
[2019-03-27] MEDS: Magnesium Oxide 400 MG TABLET PO SCH (09:28)
[2019-03-27] MEDS: Aspirin Enteric Coated 81 MG Tablet PO SCH (09:28)
[2019-03-27] MEDS: Sennosides 8.6 MG TABLET PO SCH ×2 (09:29→20:03)
[2019-03-27] MEDS: Ascorbic Acid 500 MG TABLET PO SCH ×2 (09:29→15:54)
[2019-03-27] MEDS: Diltiazem CD (24hr) 180 MG CAPSULE PO SCH (09:32)
[2019-03-27] MEDS ORDERED: *HR* OxyCODONE/APAP 5/325 TABLET PO PRN (10:24)
[2019-03-27] MEDS: Budesonide/Formoterol 160/4.5 1 PUFF INH IH SCH ×2 (10:58→22:05)
[2019-03-27] MEDS ORDERED: Milk and Molasses Enema 200 ML RC ONE (11:39)
[2019-03-27] MEDS: Morphine Sulfate Oral CONC 10 MG/0.5 ML ORAL.SYG SL PRN ×2 (12:32→21:44)
[2019-03-27] MEDS: *HR* LORazepam Oral Conc 2 MG/ML SL PRN (21:42)
[2019-03-28] MEDS: hydrALAZINE 25 MG TABLET PO SCH ×4 (00:15→23:46)
[2019-03-28] MEDS: Morphine Sulfate Oral CONC 10 MG/0.5 ML ORAL.SYG SL PRN ×5 (00:59→19:00)
[2019-03-28] MEDS: *HR* LORazepam Oral Conc 2 MG/ML SL PRN (04:29)
[2019-03-28] MEDS: Ipratropium/Albuterol Neb 3 ML IH SCH ×4 (04:40→21:03)
[2019-03-28] MEDS: *HR* Heparin 5,000 UNIT/ML VIAL SQ SCH ×3 (05:07→22:01)
[2019-03-28] MEDS: Methyl Salicylate/Menthol 57 APPL/57 GM TUBE TP PRN (05:11)
[2019-03-28] MEDS: Aspirin Enteric Coated 81 MG Tablet PO SCH (09:57)
[2019-03-28] MEDS: predniSONE 20 MG TABLET PO SCH (09:57)
[2019-03-28] MEDS: Furosemide 40 MG/4 ML VIAL IVP SCH ×2 (09:57→17:18)
[2019-03-28] MEDS: Diltiazem CD (24hr) 180 MG CAPSULE PO SCH (09:58)
[2019-03-28] MEDS: Finasteride 5 MG TABLET PO SCH (09:58)
[2019-03-28] MEDS: Ascorbic Acid 500 MG TABLET PO SCH ×2 (09:58→17:18)
[2019-03-28] MEDS: Baclofen 10 MG TABLET PO SCH ×3 (09:58→22:01)
[2019-03-28] MEDS: Sennosides 8.6 MG TABLET PO SCH ×2 (09:58→22:03)
[2019-03-28] MEDS: Magnesium Oxide 400 MG TABLET PO SCH (09:58)
[2019-03-28] MEDS: Budesonide/Formoterol 160/4.5 1 PUFF INH IH SCH ×2 (10:35→21:03)
[2019-03-28] MEDS ORDERED: Milk and Molasses Enema 200 ML RC ONE (15:00)
[2019-03-29] MEDS: Morphine Sulfate Oral CONC 10 MG/0.5 ML ORAL.SYG SL PRN ×5 (01:55→21:02)
[2019-03-29] MEDS: Ipratropium/Albuterol Neb 3 ML IH SCH ×4 (03:40→22:35)
[2019-03-29] MEDS: *HR* Heparin 5,000 UNIT/ML VIAL SQ SCH ×3 (05:16→21:02)
[2019-03-29] MEDS: Furosemide 40 MG/4 ML VIAL IVP SCH ×2 (07:45→15:20)
[2019-03-29] MEDS: Aspirin Enteric Coated 81 MG Tablet PO SCH (07:46)
[2019-03-29] MEDS: Ascorbic Acid 500 MG TABLET PO SCH ×2 (07:46→15:20)
[2019-03-29] MEDS: hydrALAZINE 25 MG TABLET PO SCH ×2 (07:46→15:20)
[2019-03-29] MEDS: Sennosides 8.6 MG TABLET PO SCH ×2 (07:46→21:01)
[2019-03-29] MEDS: Baclofen 10 MG TABLET PO SCH ×3 (07:47→21:03)
[2019-03-29] MEDS: Diltiazem CD (24hr) 180 MG CAPSULE PO SCH (07:47)
[2019-03-29] MEDS: predniSONE 20 MG TABLET PO SCH (07:47)
[2019-03-29] MEDS: Magnesium Oxide 400 MG TABLET PO SCH (07:47)
[2019-03-29] MEDS: Finasteride 5 MG TABLET PO SCH (07:47)
[2019-03-29] MEDS: Budesonide/Formoterol 160/4.5 1 PUFF INH IH SCH ×2 (10:58→22:35)
[2019-03-30] MEDS: hydrALAZINE 25 MG TABLET PO SCH ×3 (00:25→15:46)
[2019-03-30] MEDS: Morphine Sulfate Oral CONC 10 MG/0.5 ML ORAL.SYG SL PRN ×4 (00:26→22:36)
[2019-03-30] MEDS: Ipratropium/Albuterol Neb 3 ML IH SCH ×4 (04:15→21:21)
[2019-03-30] MEDS: *HR* Heparin 5,000 UNIT/ML VIAL SQ SCH ×3 (06:43→22:06)
[2019-03-30] MEDS: Finasteride 5 MG TABLET PO SCH (07:51)
[2019-03-30] MEDS: Magnesium Oxide 400 MG TABLET PO SCH (07:51)
[2019-03-30] MEDS: Sennosides 8.6 MG TABLET PO SCH ×2 (07:51→22:07)
[2019-03-30] MEDS: Aspirin Enteric Coated 81 MG Tablet PO SCH (07:51)
[2019-03-30] MEDS: Diltiazem CD (24hr) 180 MG CAPSULE PO SCH (07:51)
[2019-03-30] MEDS: Ascorbic Acid 500 MG TABLET PO SCH ×2 (07:51→15:46)
[2019-03-30] MEDS: Furosemide 40 MG/4 ML VIAL IVP SCH ×2 (07:52→15:46)
[2019-03-30] MEDS: Baclofen 10 MG TABLET PO SCH ×3 (07:52→22:07)
[2019-03-30] MEDS: predniSONE 20 MG TABLET PO SCH (07:52)
[2019-03-30] MEDS: Budesonide/Formoterol 160/4.5 1 PUFF INH IH SCH ×2 (09:54→21:20)
[2019-03-31] MEDS: hydrALAZINE 25 MG TABLET PO SCH ×2 (00:07→07:45)
[2019-03-31] MEDS: Ipratropium/Albuterol Neb 3 ML IH SCH ×2 (04:31→09:45)
[2019-03-31] MEDS: *HR* Heparin 5,000 UNIT/ML VIAL SQ SCH (05:40)
[2019-03-31 06:39] VITALS: BP 108/67
[2019-03-31] MEDS: Furosemide 40 MG/4 ML VIAL IVP SCH (07:44)
[2019-03-31] MEDS: Finasteride 5 MG TABLET PO SCH (07:45)
[2019-03-31] MEDS: Diltiazem CD (24hr) 180 MG CAPSULE PO SCH (07:45)
[2019-03-31] MEDS: Sennosides 8.6 MG TABLET PO SCH (07:45)
[2019-03-31] MEDS: predniSONE 20 MG TABLET PO SCH (07:45)
[2019-03-31] MEDS: Magnesium Oxide 400 MG TABLET PO SCH (07:45)
[2019-03-31] MEDS: Baclofen 10 MG TABLET PO SCH (07:45)
[2019-03-31] MEDS: Ascorbic Acid 500 MG TABLET PO SCH (07:45)
[2019-03-31] MEDS: Aspirin Enteric Coated 81 MG Tablet PO SCH (07:45)
[2019-03-31] MEDS: Ondansetron ODT 4 MG TAB.RAPDIS PO PRN (08:05)
[2019-03-31] MEDS: Budesonide/Formoterol 160/4.5 1 PUFF INH IH SCH (09:45)
== END 2019-03-31 10:52 | disposition hospice, inpatient (51) | DRG 280 ==
LOC: 2ANU → SUATTDRO 03-09 00:19
PROVIDERS: ADMIT Internal Medicine; ATTEND Internal Medicine